=== PATIENT | male | born 1945 | race Caucasian/White ===

== ENCOUNTER → 2025-02-03 | Outpatient (CLI) | payer SELFPAY ==
--- NOTE | 2025-02-03 12:27 | CT_ITS ---
PROCEDURE: EXTREMITY LOWER WITHOUT CONTRA 02/03/2025 REASON FOR EXAM: TEMPLATING FOR LEFT JAMES TECHNIQUE: Axial CT images of the pelvis and knees were obtained without the administration of intravenous contrast. Coronal and Sagittal reconstruction series were provided. One or more dose reduction techniques were used (e.g., Automated exposure control, adjustment of the mA and/or kV according to patient size, use of iterative reconstruction technique). COMPARISON: None FINDINGS: See impression CT/Extremity Lower without Contra IMPRESSION: Severe left hip osteoarthritis including ddac-pe-fror articulation, osseous rem odeling, subchondral sclerosis/cysts and marginal osteophytes. Negative for acute fracture or subluxation. Intact right hip pro sthesis. Degenerative changes of the lower lumbar spine. Mild bilateral knee osteoarthritis. Diffuse vascular calcifications. Mild generalized muscular atrophy. Enlarged prostate gland. Reading Location: [facility]
[2025-02-03 12:47] LABS: Absolute Lymphocyte Count 2.93 X10^3/uL (0.83-4.51); Absolute Neutrophil Count 4.6 X10^3/uL (2.0-7.7); Basophil# 0.06 X10^3/uL; Basophil% 0.7 % (0-1); Eosinophil# 0.19 X10^3/uL; Eosinophils% 2.3 % (0-5); Hematocrit 46.3 % (40-54); Hemoglobin 15.8 g/dL (13.0-16.5); Lymphocyte # 2.93 X10^3/ul (0.83-4.51); Lymphocyte % 34.9 % (19-41); Mean Corp Hgb Conc 34.1 g/dL (32-36); Mean Corpuscular Hgb 31.3 pg (27.0-32.0); Mean Corpuscular Volume 91.9 fL (80-94); Mean Platelet Vol. 9.3 fl (6.2-12.0); Monocyte% 7.2 % (0-10); NRBC Flagged by Analyzer 0 % (0-5); Neutrophil # 4.58 X10^3/uL (2.7-7.7); Neutrophil % 54.5 % (47-70); Platelet Count 224 K/mm3 (150-450); RBC Distribution Width CV 13.3 % (11.6-14.6); RBC Distribution Width SD 45.1 fl (35.1-43.9); Red Blood Count 5.04 M/mm3 (4.6-6.2); White Blood Count 8.4 K/mm3 (4.4-11.0)
[2025-02-03 13:04] LABS: Partial Thromboplast Time 24.6 Seconds (24.1-36.2)
[2025-02-03 13:25] LABS: Anion Gap 12 (5-15); BUN 18 mg/dL (4-19); BUN/Creat Ratio 11.6 RATIO (10-20); Calcium,Total 9.4 mg/dL (7.6-11.0); Carbon Dioxide 23.9 mmol/L (21.0-32.0); Chloride 103 mmol/L (98-108); Creatinine, Serum 1.59 mg/dL (0.70-1.20); EST Glomerular Filtration Rate 44 (>60); Glucose 171 mg/dL (70-99); Potassium 4.6 mmol/L (3.3-5.1); Sodium Level 139 mmol/L (133-145)
[2025-02-03 13:56] LABS: Magnesium 2.2 mg/dL (1.5-2.2)
[2025-02-03 21:31] LABS: Hemoglobin A1c 6.6 % (<=5.6)
[2025-02-05 08:08] LABS: Fructosamine 287 umol/L (0-285)
== END | disposition home or self-care (01) ==
PROVIDERS: Anesthesiology; Referring Provider Orthopaedic Surgery; Visit Provider Orthopaedic Surgery
DX: Z01.818 Encounter for other preprocedural examination (principal); M16.12 Unilateral primary osteoarthritis, left hip
CPT/HCPCS: 36415; 73700; 80048; 82985; 83036; 83735; 85025; 85610; 85730; 86850; 86900; 86901; 87081

== ENCOUNTER 2025-02-14 13:33 | Inpatient (IN) | payer SELFPAY, OTHER ==
[2025-02-14] VITALS (40 sets, daily range): BP systolic 42–162; BP diastolic 30–107; PULSE 74–97; RESP 8–25; TEMP 35.9–36.6; O2SAT 82–100; BMI 36.6; BMI 37.9
[2025-02-14 09:56] LABS: Bedside Glucose 278 mg/dL (74-106)
[2025-02-14] MEDS: LR 1,000 ML - BOLUS PREOP 999 ML IV (10:28)
[2025-02-14] MEDS: Acetaminophen 500 MG Tablet 1000 MG PO ×2 (10:28→18:16)
[2025-02-14] MEDS: Magnesium 1 GM over 15 mins IV (10:28)
[2025-02-14] MEDS: Celecoxib 200 MG Capsule 400 MG PO (10:29)
[2025-02-14] MEDS: Gabapentin 600 MG Tablet PO (10:29)
[2025-02-14] MEDS: Scopolamine 1mg/72hr Patch 1 PATCH TD (10:30)
[2025-02-14] MEDS: LR 1,000 ML - 125 ML/HR POSTOP (NO BOLUS) IV (10:45)
[2025-02-14] MEDS: Insulin Lispro 100 UNIT/ML INSULN.PEN SC (10:53)
[2025-02-14] MEDS: [UNRECOGNIZED DRUG - OTHER] IV (11:15)
[2025-02-14] MEDS: TXA IV (11:15)
[2025-02-14] MEDS: Cefazolin 3 GM in 0.9% Normal Saline (100mL Bag) 100 ML IV (11:20)
[2025-02-14 14:10] LABS: Bedside Glucose 167 mg/dL (74-106)
[2025-02-14 14:34] LABS: Base Excess 0 mmol/L (-2 to +2); Bicarbonate 29.2 mmol/L (22-26); Blood Gas Specimen Type ART; Comment AVAPS; Mode Not entered; O2 Delivery Device BiPAP; PEEP 10; PO2 94 mmHG (75-100); RR 16; SITE R Brach; SO2 94 % (95-99); Total Carbon Dioxide 32 mmol/L; pCO2 84.8 mmHg (35-45); pH 7.15 (7.35-7.45)
[2025-02-14] MEDS: Furosemide 40 MG/4 ML Vial IV (15:47)
[2025-02-14 15:59] LABS: Base Excess 0 mmol/L (-2 to +2); Bicarbonate 27.2 mmol/L (22-26); Blood Gas Specimen Type ART; Mode Not entered; O2 Delivery Device BiPAP; PEEP 6; PO2 83 mmHG (75-100); RR 16; SITE R Brach; SO2 94 % (95-99); Total Carbon Dioxide 29 mmol/L; pH 7.27 (7.35-7.45)
[2025-02-14] MEDS: Cefazolin 2 GM in 0.9% Normal Saline (100mL Bag) 100 ML IV (17:38)
[2025-02-14 18:40] LABS: Bedside Glucose 100 mg/dL (74-106)
[2025-02-14 18:51] LABS: Pro- Brain NATRIURETIC PEPTIDE 325 pg/mL (<=1800)
[2025-02-14] MEDS: 0.9% Saline Lock 10 ML Syringe IV (18:54)
[2025-02-14] MEDS: Senna/Docusate Sodium 1 Tablet 2 TABLET PO (21:28)
[2025-02-14 21:57] LABS: Bedside Glucose 190 mg/dL (74-106)
[2025-02-15] VITALS (30 sets, daily range): BP systolic 90–156; BP diastolic 47–90; PULSE 85–113; RESP 14–26; TEMP 36.6–37; O2SAT 86–100; BMI 37.8
[2025-02-15] MEDS: 0.9% Saline Lock 10 ML Syringe IV ×2 (01:17→08:22)
[2025-02-15] MEDS: Cefazolin 2 GM in 0.9% Normal Saline (100mL Bag) 100 ML IV ×2 (01:17→08:13)
[2025-02-15] MEDS: Acetaminophen 500 MG Tablet 1000 MG PO (02:27)
[2025-02-15] MEDS: Ondansetron 4 MG/2 ML Vial IV (02:39)
[2025-02-15 03:36] LABS: Absolute Lymphocyte Count 1.28 X10^3/uL (0.83-4.51); Absolute Neutrophil Count 8.5 X10^3/uL (2.0-7.7); Basophil# 0.02 X10^3/uL; Basophil% 0.2 % (0-1); Eosinophil# 0.01 X10^3/uL; Eosinophils% 0.1 % (0-5); Hematocrit 40.7 % (40-54); Hemoglobin 13.8 g/dL (13.0-16.5); Lymphocyte # 1.28 X10^3/ul (0.83-4.51); Mean Corp Hgb Conc 33.9 g/dL (32-36); Mean Corpuscular Hgb 31.8 pg (27.0-32.0); Mean Corpuscular Volume 93.8 fL (80-94); Mean Platelet Vol. 9.1 fl (6.2-12.0); Monocyte# 0.84 X10^3/uL; Monocyte% 7.9 % (0-10); NRBC Flagged by Analyzer 0 % (0-5); Neutrophil # 8.53 X10^3/uL (2.7-7.7); Neutrophil % 79.6 % (47-70); Platelet Count 207 K/mm3 (150-450); RBC Distribution Width CV 13.2 % (11.6-14.6); RBC Distribution Width SD 45.3 fl (35.1-43.9); Red Blood Count 4.34 M/mm3 (4.6-6.2); White Blood Count 10.7 K/mm3 (4.4-11.0)
[2025-02-15 03:58] LABS: Anion Gap 12 (5-15); BUN 17 mg/dL (4-19); BUN/Creat Ratio 9.7 RATIO (10-20); Calcium,Total 8.6 mg/dL (7.6-11.0); Carbon Dioxide 22.2 mmol/L (21.0-32.0); Chloride 98 mmol/L (98-108); Creatinine, Serum 1.76 mg/dL (0.70-1.20); EST Glomerular Filtration Rate 39 (>60); Estimated Creatinine Clearance 46.24 ml/min (50-250); Glucose 183 mg/dL (70-99); Potassium 4.4 mmol/L (3.3-5.1); Sodium Level 133 mmol/L (133-145)
[2025-02-15] MEDS: Pantoprazole Sodium 80 MG in 0.9% Normal Saline (100mL Bag) 80 ML 10 MG CONT INF (04:34)
[2025-02-15 08:36] LABS: Hematocrit 36.9 % (40-54); Hemoglobin 12.4 g/dL (13.0-16.5); Mean Corp Hgb Conc 33.6 g/dL (32-36); Mean Corpuscular Hgb 31.1 pg (27.0-32.0); Mean Corpuscular Volume 92.5 fL (80-94); Mean Platelet Vol. 9.2 fl (6.2-12.0); Platelet Count 199 K/mm3 (150-450); RBC Distribution Width CV 13.2 % (11.6-14.6); RBC Distribution Width SD 44.8 fl (35.1-43.9); Red Blood Count 3.99 M/mm3 (4.6-6.2); White Blood Count 12.2 K/mm3 (4.4-11.0)
[2025-02-15] MEDS: oxyCODONE 5 MG Tablet PO (13:38)
[2025-02-15] MEDS: Insulin Lispro 100 UNIT/ML INSULN.PEN SC ×2 (16:26→23:09)
[2025-02-15] MEDS: Ensure Surgery 237 ML LIQUID PO (16:28)
[2025-02-15 16:46] LABS: Bedside Glucose 185 mg/dL (74-106)
[2025-02-15 21:51] LABS: Hematocrit 36.4 % (40-54); Hemoglobin 12.6 g/dL (13.0-16.5); Mean Corp Hgb Conc 34.6 g/dL (32-36); Mean Corpuscular Hgb 31.7 pg (27.0-32.0); Mean Corpuscular Volume 91.7 fL (80-94); Mean Platelet Vol. 9.5 fl (6.2-12.0); Platelet Count 209 K/mm3 (150-450); RBC Distribution Width CV 13.2 % (11.6-14.6); RBC Distribution Width SD 44.6 fl (35.1-43.9); Red Blood Count 3.97 M/mm3 (4.6-6.2); White Blood Count 13.7 K/mm3 (4.4-11.0)
[2025-02-15] MEDS: Senna/Docusate Sodium 1 Tablet 2 TABLET PO (23:10)
[2025-02-15] MEDS: APIXABAN 2.5 MG TABLET (WCH) PO (23:10)
[2025-02-15 23:38] LABS: Bedside Glucose 264 mg/dL (74-106)
[2025-02-16 02:29] VITALS: BP 140/57; PULSE 93; RESP 16; TEMP 37.1; O2SAT 94
[2025-02-16 06:00] VITALS: BMI 37.9
[2025-02-16 07:37] VITALS: BP 127/48; PULSE 98; RESP 18; TEMP 36.8; O2SAT 98
[2025-02-16 07:39] LABS: Absolute Lymphocyte Count 1.63 X10^3/uL (0.83-4.51); Absolute Neutrophil Count 10.4 X10^3/uL (2.0-7.7); Basophil# 0.06 X10^3/uL; Basophil% 0.4 % (0-1); Eosinophil# 0.14 X10^3/uL; Hematocrit 36.6 % (40-54); Hemoglobin 12.6 g/dL (13.0-16.5); Lymphocyte # 1.63 X10^3/ul (0.83-4.51); Lymphocyte % 12.1 % (19-41); Mean Corp Hgb Conc 34.4 g/dL (32-36); Mean Corpuscular Hgb 31.2 pg (27.0-32.0); Mean Corpuscular Volume 90.6 fL (80-94); Mean Platelet Vol. 9.3 fl (6.2-12.0); Monocyte# 1.17 X10^3/uL; Monocyte% 8.7 % (0-10); NRBC Flagged by Analyzer 0 % (0-5); Neutrophil % 76.9 % (47-70); Platelet Count 192 K/mm3 (150-450); RBC Distribution Width CV 13.3 % (11.6-14.6); RBC Distribution Width SD 44.1 fl (35.1-43.9); Red Blood Count 4.04 M/mm3 (4.6-6.2); White Blood Count 13.5 K/mm3 (4.4-11.0)
[2025-02-16 07:45] LABS: Bedside Glucose 180 mg/dL (74-106)
[2025-02-16 08:05] LABS: Anion Gap 11 (5-15); BUN 30 mg/dL (4-19); BUN/Creat Ratio 13.6 RATIO (10-20); Calcium,Total 8.4 mg/dL (7.6-11.0); Carbon Dioxide 25.1 mmol/L (21.0-32.0); Chloride 98 mmol/L (98-108); EST Glomerular Filtration Rate 30 (>60); Estimated Creatinine Clearance 36.91 ml/min (50-250); Glucose 197 mg/dL (70-99); Potassium 4.2 mmol/L (3.3-5.1); Sodium Level 134 mmol/L (133-145)
[2025-02-16] MEDS: Senna/Docusate Sodium 1 Tablet 2 TABLET PO ×2 (08:14→21:37)
[2025-02-16] MEDS: Gabapentin 100 MG Capsule PO (08:14)
[2025-02-16] MEDS: Cholecalciferol (VIT D3) 25 MCG TABLET (1,000 UNITS) PO (08:15)
[2025-02-16] MEDS: APIXABAN 2.5 MG TABLET (WCH) PO ×2 (08:15→21:37)
[2025-02-16] MEDS: 0.9% Saline Lock 10 ML Syringe IV (08:21)
[2025-02-16] MEDS: 0.9% Normal Saline (1000mL) 1,000 ML 50 ML IV (08:21)
[2025-02-16] MEDS: Pantoprazole Sodium 40 MG Tablet PO ×2 (08:21→21:37)
[2025-02-16 11:24] LABS: Bedside Glucose 153 mg/dL (74-106)
[2025-02-16 14:23] VITALS: BP 139/64; PULSE 104; RESP 18; TEMP 36.6; O2SAT 98
[2025-02-16 15:23] VITALS: O2SAT 97
[2025-02-16] MEDS: Insulin Lispro 100 UNIT/ML INSULN.PEN SC ×2 (16:31→21:37)
[2025-02-16 16:59] LABS: Bedside Glucose 258 mg/dL (74-106)
[2025-02-16] MEDS: oxyCODONE 5 MG Tablet PO (19:55)
[2025-02-16] MEDS: Menthol/Lanolin/Calamine/Znox 113 GM Tube 1 APPLIC TOPICAL (21:38)
[2025-02-16] MEDS: Nystatin Powder 15gm Bottle 1 APPLIC TOPICAL (21:38)
[2025-02-16 22:02] LABS: Bedside Glucose 179 mg/dL (74-106)
[2025-02-17 02:00] VITALS: BP 151/68; PULSE 100; RESP 16; TEMP 37.1; O2SAT 97
[2025-02-17] MEDS: Acetaminophen 500 MG Tablet 1000 MG PO ×2 (02:01→09:50)
[2025-02-17] MEDS: oxyCODONE 5 MG Tablet PO ×3 (04:31→14:08)
[2025-02-17 04:46] VITALS: BMI 38.2
[2025-02-17 06:32] VITALS: BP 142/70; PULSE 89; RESP 16; TEMP 36.8; O2SAT 96
[2025-02-17 06:58] LABS: Bedside Glucose 79 mg/dL (74-106)
[2025-02-17 07:26] VITALS: BP 142/56; PULSE 96; RESP 18; TEMP 36.6; O2SAT 95
[2025-02-17] MEDS: Gabapentin 100 MG Capsule PO (08:39)
[2025-02-17] MEDS: Ensure Surgery 237 ML LIQUID PO ×2 (08:41→11:39)
[2025-02-17 08:46] LABS: Absolute Lymphocyte Count 2.49 X10^3/uL (0.83-4.51); Absolute Neutrophil Count 9.1 X10^3/uL (2.0-7.7); Basophil# 0.05 X10^3/uL; Basophil% 0.4 % (0-1); Eosinophil# 0.29 X10^3/uL; Eosinophils% 2.2 % (0-5); Hematocrit 35.8 % (40-54); Hemoglobin 12.1 g/dL (13.0-16.5); Lymphocyte # 2.49 X10^3/ul (0.83-4.51); Lymphocyte % 18.9 % (19-41); Mean Corp Hgb Conc 33.8 g/dL (32-36); Mean Corpuscular Hgb 31.4 pg (27.0-32.0); Mean Platelet Vol. 9.4 fl (6.2-12.0); Monocyte# 1.11 X10^3/uL; Monocyte% 8.4 % (0-10); NRBC Flagged by Analyzer 0 % (0-5); Neutrophil # 9.09 X10^3/uL (2.7-7.7); Platelet Count 227 K/mm3 (150-450); RBC Distribution Width CV 13.6 % (11.6-14.6); RBC Distribution Width SD 46.6 fl (35.1-43.9); Red Blood Count 3.85 M/mm3 (4.6-6.2); White Blood Count 13.2 K/mm3 (4.4-11.0)
[2025-02-17 09:16] LABS: Anion Gap 9 (5-15); BUN 29 mg/dL (4-19); BUN/Creat Ratio 15.3 RATIO (10-20); Calcium,Total 8.7 mg/dL (7.6-11.0); Carbon Dioxide 26.1 mmol/L (21.0-32.0); Chloride 102 mmol/L (98-108); Creatinine, Serum 1.92 mg/dL (0.70-1.20); EST Glomerular Filtration Rate 35 (>60); Estimated Creatinine Clearance 42.47 ml/min (50-250); Glucose 72 mg/dL (70-99); Sodium Level 137 mmol/L (133-145)
[2025-02-17] MEDS: Menthol/Lanolin/Calamine/Znox 113 GM Tube 1 APPLIC TOPICAL (09:48)
[2025-02-17] MEDS: Cholecalciferol (VIT D3) 25 MCG TABLET (1,000 UNITS) PO (09:50)
[2025-02-17] MEDS: Senna/Docusate Sodium 1 Tablet 2 TABLET PO (09:50)
[2025-02-17] MEDS: Nystatin Powder 15gm Bottle 1 APPLIC TOPICAL (09:50)
[2025-02-17] MEDS: Pantoprazole Sodium 40 MG Tablet PO (09:50)
[2025-02-17] MEDS: APIXABAN 2.5 MG TABLET (WCH) PO (09:51)
[2025-02-17 10:15] VITALS: BP 132/57; PULSE 92; RESP 16; TEMP 36.8; O2SAT 95
[2025-02-17 11:19] LABS: Bedside Glucose 209 mg/dL (74-106)
[2025-02-17] MEDS: Tamsulosin HCl 0.4 MG Capsule PO (11:31)
[2025-02-17] MEDS: Polyethylene Glycol 3350 17 GM PACKET PO (11:34)
[2025-02-17] MEDS: Insulin Lispro 100 UNIT/ML INSULN.PEN SC (11:37)
[2025-02-17 12:29] LABS: Color, Urine Yellow (Yellow); Glucose, Dipstick Normal (Normal); Ketone-Dipstick Negative (Negative); Leukocyte Esterase-Dipstick 100 /ul (Negative); Nitrite-Dipstick Negative (Negative); Occult Blood-Urine 250 /ul (Negative); Protein-Dipstick 30 mg/dl (Negative); Specific Gravity, Urine 1.015 (1.002-1.030); Urine Bilirubin Dipstick Negative (Negative); Urine Clarity Sl. Cloudy (Clear); Urine Urobilinogen Normal (Normal)
[2025-02-17 12:37] LABS: Bacteria RARE /hpf (None Seen); Mucous, Urine RARE /hpf (<or=2+); Red Blood Cells-Urine 5-10 SEEN /hpf (0-5); Squamous Epithelial Cells - UA 0-5 SEEN /hpf (0-5); White Blood Cells 5-10 SEEN /hpf (0-5)
[2025-02-18 06:46] LABS: Hemoglobin A1c 6.2 % (<=5.6)
[2025-02-18 08:44] LABS: Cholesterol 154 mg/dL (<=200); High Density Lipoprotein 27 mg/dL; Low Density Lipoprotein Calc. 100 mg/dL; Triglycerides 137 mg/dL; Very Low Density Lipoprotein 27 mg/dL (5-40); cholesterol:hdl ratio screen 5.72
== END 2025-02-17 14:22 | DRG 469 ==
LOC: ICU 02-15 07:08 → MS3 02-15 20:36
PROVIDERS: Hospitalist; Internal Medicine; Internal Medicine Gastroenterology; Admitting Provider Orthopaedic Surgery; PCP Physician Assistant; Referring Provider Orthopaedic Surgery; Visit Provider Orthopaedic Surgery
PROC: 8E0Y0CZ Robotic Assisted Procedure of Lower Extremity, Open Approach (ICD-10-PCS; CPT 27130; principal; 2025-02-14 10:15)
PROC: 0DJ08ZZ Inspection of Upper Intestinal Tract, Via Natural or Artificial Opening Endoscopic (ICD-10-PCS; CPT 43235; principal; 2025-02-15 12:40)
DX: M16.12 Unilateral primary osteoarthritis, left hip (principal); G93.41 Metabolic encephalopathy; J96.02 Acute respiratory failure with hypercapnia; N17.9 Acute kidney failure, unspecified; K92.0 Hematemesis; K22.10 Ulcer of esophagus without bleeding; E11.22 Type 2 diabetes mellitus with diabetic chronic kidney disease; N18.32 Chronic kidney disease, stage 3b; I12.9 Hypertensive chronic kidney disease with stage 1 through stage 4 chronic kidney disease, or unspecified chronic kidney disease; Z68.36 Body mass index [BMI] 36.0-36.9, adult; E78.00 Pure hypercholesterolemia, unspecified; M70.62 Trochanteric bursitis, left hip; K29.70 Gastritis, unspecified, without bleeding; M47.26 Other spondylosis with radiculopathy, lumbar region; G47.33 Obstructive sleep apnea (adult) (pediatric); I95.81 Postprocedural hypotension; Y92.239 Unspecified place in hospital as the place of occurrence of the external cause; T50.8X5A Adverse effect of diagnostic agents, initial encounter; R33.9 Retention of urine, unspecified; R04.0 Epistaxis; T88.59XA Other complications of anesthesia, initial encounter; T41.45XA Adverse effect of unspecified anesthetic, initial encounter; E66.812 Obesity, class 2; Z79.01 Long term (current) use of anticoagulants; Z79.84 Long term (current) use of oral hypoglycemic drugs; Z79.899 Other long term (current) drug therapy; Z86.711 Personal history of pulmonary embolism; Z87.891 Personal history of nicotine dependence; Z96.641 Presence of right artificial hip joint
CPT/HCPCS: 36415; 36600; 71045; 73502; 74170; 80048; 80061; 81001; 82271; 82803; 82962; 83036; 83880; 85025; 85027; 87086; 88304; 88311; 92526; 92610; 94002; 94668; 94762; 97163; 97166; 97530; 97535; C1713; C1776; Q9967; A4216; J1938; J2405; J3475

== ENCOUNTER 2025-02-17 15:15 | Inpatient (IN) | payer SELFPAY ==
[2025-02-17 15:31] VITALS: BP 140/73; PULSE 97; RESP 16; TEMP 36.8; O2SAT 98; BMI 37.7
--- NOTE | 2025-02-17 16:00 | RAD_ITS ---
EXAM: XR Abdomen, 1 View CLINICAL INDICATION: CONSTIPATION TECHNIQUE: Frontal supine view of the abdomen/pelvis. COMPARISON: No relevant prior studies available. FINDINGS: GASTROINTESTINAL TRACT: Fecal retention in the colon consistent with constipation. No dilation. BONES/JOINTS: Unremarkable. No acute fracture. RAD/Abdomen Single View IMPRESSION: Fecal retention in the colon consistent with constipation. Reading Location: [id number]
--- NOTE | 2025-02-17 16:10 | RAD_ITS ---
EXAM: XR Chest, 2 Views CLINICAL INDICATION: ASPIRATION PNA TECHNIQUE: Frontal and lateral views of the chest. COMPARISON: No relevant prior studies available. FINDINGS: LUNGS AND PLEURAL SPACES: Patchy airspace disease of the right upper lobe, likely pneumonia. No pneumothorax. HEART: Unremarkable. No cardiomegaly. MEDIASTINUM: Unremarkable. Normal mediastinal contour. BONES/JOINTS: Unremarkable. No acute fracture. RAD/Chest PA and Lateral IMPRESSION: Patchy airspace disease of the right upper lobe, likely pneumonia. Reading Location: [id number]
--- NOTE | 2025-02-17 16:12 | PCM.HP.STD ---
HPI - General General Date of Admission: 02/17/25 Date of Service: 02/17/25 Chief Complaint: DEBILITY DUE TO R THR HPI Narrative OCTAVIO VILLA, is a 79 M with a PMH of DM II, morbid obesity, suspected BPH, osteoarthritis, chronic renal failure (creat on preop labs was 1.59 with a GFR of 44 which is consistent with stage III 3B chronic renal failure), tobacco dependence in remission and a PE after L hip replacement in the past who underwent a right total hip replacement by Dr. Galindo on 02/14/2025. Post operatively he was somnolent and unarousable. ABG showed a pH of 7.15 with a PCO2 of 84 and a PO2 of 94 on BiPAP (later transitioned to AVAPS). Chest x-ray showed a right upper lobe infiltrate. He was given Lasix in PACU. After about an hour on AVAPS he became arousable and the ABG showed pH of 7.27 with a PCO2 of 60 and a pO2 of 83. He was transferred to the intensive care unit. He was started on Unasyn for suspected aspiration PNA. At some point he was reported to have had a coffee ground emesis. A CT scan of the abdomen with contrast was done and showed a right perihilar/right lower lobe multifocal pulmonary airspace disease/consolidation likely representing pneumonia, chronic right renal atrophy, cholelithiasis without evidence of acute cholecystitis, small sliding hiatal hernia, colonic diverticulosis with no evidence of diverticulitis, mild prostatomegaly and moderate diffuse spondylosis. There was no evidence of active bleeding. Consult was ordered with GI. An EGD was done on 02/15/2025 and showed grade C erosive esophagitis with no bleeding. There were no gross lesions in the entire stomach and no gross lesions in the entire examined duodenum. CT scan of the abdomen showed There was evidence of old blood in the nasopharynx and oropharynx. Creatinine on 02/16/2025 had risen to 2.2 and this was thought to be secondary to intravascular volume depletion and IV contrast. He was hydrated and the creatinine came down to 1.92 on 02/17/2025. He has been retaining urine in the hospital. Gould catheter was removed but, PVR on 02/17/25 was 523 and the Gould was re-inserted. He was started on Flomax. He takes an herbal prostate supplement at home and denies slow stream and dribbling. He was transferred to the acute inpatient rehab unit at [facility] on 02/17/2025 for 3 hours of therapy daily to restore function/independence at or near his level prior to the recent hip replacement. He lives alone in a one-story house with a basement. He normally ambulates with a rollator walker. He is independent with his activities of daily living. He is c/o constipation and tells us that he has not had a BM in 1 week. He denies feeling nauseated. He refused breakfast and lunch on 02/17/25. He denies abd pain. He has an occasional cough and denies SOB at rest. He has SIMON. He has not had a fever but, he has been getting Tylenol 1 GM every 6 Hours. White blood cell count has been elevated since 820 on 02/15/2025. Today it is 13.2. Hemoglobin is 12.1, down from 15.8 on 02/03/2025. Platelets are normal. [facility] Medical History (Updated 02/17/25 @ 17:[address] Asia Dodd, ) Degenerative joint disease of left hip Trochanteric bursitis, left hip Tobacco dependence in remission Hiatal hernia with GERD Left lumbar radiculitis Chronic renal failure (CRF), stage 3b Lumbar spondylosis Wears glasses Wears partial dentures Alcohol use Rash Walker as ambulation aid Arthritis High cholesterol Back pain Syncope Dietary restriction Constipation Chewing tobacco use History of pain when walking Hypertension Pulmonary embolism Home Medications ?Medication ?Instructions ?Recorded ?Last Taken ?Type cholecalciferol (vitamin D3) 25 25 mcg PO DAILY SUPPLEMENT 02/07/25 02/17/25 History mcg (1,000 unit) tablet (Vitamin D3) magnesium 250 mg tablet 750 mg PO DAILY SUPPLEMENT 02/07/25 02/13/25 History vitamin K2 100 mcg capsule 100 mcg PO DAILY SUPPLEMENT 02/07/25 02/13/25 History Held on 02/17/25. Instructions: Ordered acetaminophen 500 mg tablet 1,000 mg (2 x 500 mg) PO Q6H pain 02/16/25 Unknown Rx Held on 02/17/25. #100 tabs Instructions: MD Ordered apixaban 2.5 mg tablet (Eliquis) 2.5 mg PO BID Blood thinner #66 02/16/25 Unknown Rx tabs gabapentin 300 mg capsule 300 mg PO TID Nerve pain #90 caps 02/16/25 Unknown Rx oxycodone 5 mg tablet 5 - 10 mg PO Q4H PRN pain 02/17/25 Unknown History pantoprazole 40 mg tablet,delayed 40 mg PO BID GERD #0 tabs 02/17/25 02/17/25 Rx release sennosides 8.6 mg-docusate sodium 2 tab PO BID Constipation #0 tabs 02/17/25 02/17/25 Rx 50 mg tablet (Stimulant Laxative Plus) tamsulosin 0.4 mg capsule 0.4 mg PO DAILY@0830 Urine 02/17/25 02/17/25 Rx retention #0 caps Allergy/AdvReac Type Severity Reaction Status Date / Time No Known Allergies Allergy Verified 02/14/25 10:16 Family History (Updated 02/17/25 @ 17:[address] Asia Dodd DO) Son VTE (venous thromboembolism) many family members have had blood clots......possible inherited hypercoagulable disorder. Surgical History (Updated 02/17/25 @ 17:[address] Asia Dodd DO) Status post left hip replacement Hx of right cataract extraction Hx of left cataract extraction Hx of appendectomy History of right hip replacement Social History (Updated 02/17/25 @ 17:[address] Asia Dodd DO) household members: none housing: house number of children: 7 current occupational status: retired Smoking Status: Former smoker Tobacco: How many years used: 35 Smokeless tobacco user: snuff how long ago did patient quit smokin years ago alcohol intake: current alcohol intake frequency: holidays/special occasions only details: has an occasional beer in the summer and a shot of whiskey in the winter. substance use type: does not use Homelessness:: Sheltered ROS Review of Systems ROS Unobtainable: Denies due to encephalopathy, due to endotracheal tube, due to mental condition or due to mental status Constitutional Constitutional: Reports fatigue and weakness; Denies anorexia, change in weight, chills, fever(s), frequent falls, headache(s) or night sweats Eyes Eyes: Denies blurry vision, change in vision, eye pain or loss of vision ENT HEENT: Denies abnormal hearing, dysphagia, headache(s), hearing loss, nasal congestion or sore throat Cardiovascular Cardiovascular: Reports dyspnea on exertion; Denies chest pain, edema, lightheadedness, orthopnea, palpitations, paroxysmal nocturnal dyspnea or syncope Respiratory/Chest Respiratory/Chest: Reports cough and shortness of breath with exertion; Denies dyspnea, pain on inspiration, portable oxygen @ home, shortness of breath at rest or wheezing Gastrointestinal Gastrointestinal: Reports constipation and other Details: had emesis while in the ICU following surgery ; Denies abdominal pain, diarrhea, dyspepsia, dysphagia, early satiety, fecal incontinence, hematemesis, hematochezia, nausea or vomiting Genitourinary Genitourinary: Reports other Details: urine retention in the hospital requiring insertion of a gould catheter. ; Denies dysuria, hematuria, nocturia, urinary frequency, urinary hesitancy, urinary incontinence or urinary urgency Musculoskeletal Musculoskeletal: Reports back pain, difficulty walking and joint pain; Denies joint swelling, neck pain or radiating pain into limb Neurologic Neurologic: Denies confusion, disequilibrium, dizziness, focal weakness, headache(s), paresthesias, seizures or tremor(s) Psychiatric Psychiatric: Denies anxiety, depression, homicidal ideation or suicidal ideation Endocrine Endocrinology: Reports other Details: he has lost his sense of thirst and knows that he does not drink enough fluids. ; Denies change in body appearance, polydipsia or polyuria Hematologic/Lymphatic Hematologic/Lymphatic: Denies easy bleeding, easy bruising or lymphadenopathy Allergic/Immunologic Allergic/Immunologic: Reports other Details: he has a chronic rash on the RLE over the mid anterior tibia ; Denies rhinitis, eczemia or asthma Vital Signs Vital Signs Vital Signs: 02/17/25 15:31 Temperature 98.2 F Temperature Source Oral Pulse Rate 97 Respiratory Rate 16 Blood Pressure 140/73 H Blood Pressure Mean 95 Blood Pressure Source Monitor Blood Pressure Position Semi-Fowlers Blood Pressure Location Right Arm Pulse Ox 98 Oxygen Delivery Method Room Air Weight Weight: 270 lb 9 oz Body Mass Index (BMI) 37.7 Physical Exam Const alert, oriented x3 and no apparent distress General Appearance: cooperative and well kempt HEENT HEENT Narrative: VERY dry MM. No evidence of thrush Eyes PERRL, EOMs intact bilaterally, conjunctivae normal and no scleral icterus Eyes Narrative: No discharge from the eyes and no mattering of the eyelashes. No visual field cuts. No nystagmus. Smooth pursuit. Neck supple, No nodes and no carotid bruits General: trachea midline Chest Chest: symmetrical chest wall rise Resp Resp Narrative: Some coarse crackles in the mid upper right lung posteriorly. No wheezing. Not tachypneic. No conversational dyspnea. Effort and Inspection: able to speak in complete sentences Cardio regular rhythm, no murmurs, no rub and no gallops Cardio Narrative: Increased resting heart rate. No ectopy. GI GI Narrative: Obese, soft, ND, normal BS's, no guarding with palpation. no CVA tenderness Bladder / Kidney Exam: catheter in place urethral (urine in the Gould bag is dark alber. ) Extremity no calf tenderness Extremity Narrative: he has pitting edema of the feet and ankles.......no TEDS in place. Skin Skin Narrative: He has a area of dry, scaley, hyperpigmented skin on the distal anterior R leg at about mid tibia. Neuro oriented x3, CN's II-XII intact bilaterally, moves all extremities and no focal motor deficits Psych mental status grossly normal, thought process normal, cooperative, affect normal and speech normal; Negative for denies hallucinations, denies homicidal ideation or denies suicidal ideation Appearance: grossly normal, appropriate and well kempt Attitude: calm and engaged Activity / Motor Behavior: appropriate eye contact Assessment & Plan Assessment/Plan (1) Physical debility: (2) Status post left hip replacement: (3) Other acute postprocedural pain: (4) Acute blood loss as cause of postoperative anemia: (5) Acute hypercapnic respiratory failure: (6) Coffee ground emesis: (7) Erosive esophagitis: (8) Aspiration pneumonia: QUALIFIERS: Aspiration pneumonia type: due to gastric secretions Laterality: right Lung location: unspecified part of lung Qualified Code(s): J69.0 - Pneumonitis due to inhalation of food and vomit (9) Acute renal failure superimposed on stage 3 chronic kidney disease: QUALIFIERS: Acute renal failure type: unspecified Chronic kidney disease stage 3 subtype: stage 3b (GFR 30-44) Qualified Code(s): N17.9 - Acute kidney failure, unspecified; N18.32 - Chronic kidney disease, stage 3b (10) Dehydration: (11) Urine retention: (12) BPH (benign prostatic hyperplasia): QUALIFIERS: Lower urinary tract symptom presence: symptoms present Lower urinary tract symptom detail: urinary retention Qualified Code(s): N40.1 - Benign prostatic hyperplasia with lower urinary tract symptoms; R33.8 - Other retention of urine (13) Enlarged prostate: (14) Diabetes mellitus, type 2: QUALIFIERS: Diabetes mellitus vermin exterminator insulin use: without mcc use Diabetes mellitus complication status: with kidney complications (15) Chronic renal failure (CRF), stage 3b: (16) Hiatal hernia with GERD: (17) Morbid obesity: (18) KATHERINE (obstructive sleep apnea): (19) Pulmonary embolism: QUALIFIERS: Pulmonary embolism type: unspecified Chronicity: unspecified Acute cor pulmonale presence: unspecified Qualified Code(s): I26.99 - Other pulmonary embolism without acute cor pulmonale PLAN: 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 Galindo following DC from IP Rehab AM lab including CMP, CBC, Mag, lipid panel and Phos KUB PA and lateral chest x-ray Decrease gabapentin to 100 mg 3 times daily due to age and chronic kidney disease with acute exacerbation. Flomax has been started-voiding trial after 5 doses Orthostatic vital signs Normal saline at 125 cc/h x 2 L then discontinue Start Unasyn 1.5 g IV every 6 hours for aspiration pneumonia Urine culture Overnight trending pulse ox 70 minutes spent reviewing past diagnostic tests, lab results, vital sign trends, medical history, medications, all additional paperwork sent by the previous hospital, and ordering medications, examining the the patient and completing documentation. Charges/Coding Visit Charges Inpatient E&M: 79924 Init Hosp L3
[2025-02-17] MEDS: 0.9% Normal Saline (1000mL) 1,000 ML 125 ML IV (16:59)
[2025-02-17] MEDS: 0.9% Saline Lock 10 ML Syringe IV (17:13)
[2025-02-17 17:44] VITALS: BP 140/73; PULSE 97; RESP 16; TEMP 36.8; O2SAT 98
--- NOTE | 2025-02-17 17:54 | REHABEVAL_ITS ---
Admission Information Primary Diagnosis:: Debility secondary to left total hip replacement Status Changes from Prescreening?: No changes Identified Actual Problem List:: Infection, Aspiration, Pain, ALteration in Cmfrt, Bowel, Constipation, Alteration in Sleep, Mobility Impaired, Self Care Deficit, Lyudmila betes, Hyperglycemia, Alteration/ Air Exchange, Fluid Change-Dehydration and
--- NOTE | 2025-02-17 17:54 | PCM.RU.PYE ---
Admission Information Primary Diagnosis:: Debility secondary to left total hip replacement Status Changes from Prescreening?: No changes Identified Actual Problem List:: Infection, Aspiration, Pain, ALteration in Cmfrt, Bowel, Constipation, Alteration in Sleep, Mobility Impaired, Self Care Deficit, Diabetes, Hyperglycemia, Alteration/ Air Exchange, Fluid Change-Dehydration and Alteration-Leisure Activ. Potential Problem List:: DVT, Bleeding, Infection, UTI, Aspiration, Falls, Skin Integrity and Depression Risk of Complications DVT: ELLY Hose and - (Apixaban 2.5 mg twice daily) Bleeding: Monitor Lab Values, Nursing to Teach Precautions for anti-coagulation therapy., Wound, if applicable, to be assessed every shift. and Stroke patients assessed for lethargy or change in status. Infection: Clinical Staff to Monitor for S/S of infection: and S/S of infection include fever, redness, warmth, etc. Urinary Tract Infection: Monitor for frequency, burning, discomfort, or incontinence. and Nursing will obtain urine sample for urinalysis and C&S when ordered. Aspiration: Clinical staff will monitor for coughing, drooling, congestion., Speech will evaluate swallowing and dsyphasia. and Nursing will monitor patient swallowing during meals. Falls: Patient will be evaluated for Fall Precautions and Patient will be placed on Fall Precautions as indicated per protocol. Skin Breakdown: Nursing will assess skin daily using assessment tool. and Nursing will place on Skin Breakdown Precautions as indicated. Pain: Clinical staff will assess patient's pain level per protocol., Medications will be given, if needed, and the pain level reassessed. and Other methods: Massage, distraction, decrease stimulus, etc. used PRN. Plan of Care Patient requires physician specializing in physical medicine and rehab oversight to provide close medical supervision of rehab issues including: Pain Management, Sleep Problems, Bowel and Bladder, Medical and co-morbidity Management, DVT prophylaxis, Rehabilitation Leadership and Coordination of treatment team Patient needs Physical Therapy: For a minimum of 1 hour and At least 5 out of 7 days Patient needs Physical Therapy to improve:: Mobility, Strengthening, Transfers, Stretching, ROM, Endurance, Stairs, Gait and Balance Patient needs Occupational Therapy: For a minimum of 1 hour and At least 5 out of 7 days Patient needs Occupational Therapy to improve ADL's incl.: Eating, Grooming, Bathing, Dressing, Toileting, Toilet transfers, Community Reintegration, Higher functioning activities, Household tasks, Adaptive Equipment, Splinting and Other activities as determined Patient requires 24/7 Rehabilitation Nursing for: Pain Issues, Identifying and preventing risk factors, Monitoring and reporting current medical conditions, Assisting with ambulation, transfer, and all ADL's, Teaching patients about disease process and medications, Family teaching, Providing safe environment, Bowel and Bladder Issues, Skin integrity and Medication Management Patient needs Middleware Solutions Architect/ Case Management for: Discharge Planning, Arranging Home Equipment or Services and Family Interventions Patient needs Dietary and Nutrition Services for: Adequate Nutrition, Nutritional Supplements and Nutritional Education Goals Goals Patient will remain: free from falls Patient will perform eating at: MOD I level of assist. Patient will perform bed mobility at: MOD I level of assist. Patient will complete transfers from bed to chair at: MOD I level of assist. Patient will propel wheelchair: - (150 feet at mod I with a rollator walker) Patient will complete upper body dressing at: MOD I level of assist. Patient will complete lower body dressing at: MOD I level of assist. (With adaptive equipment as needed) Patient will complete toilet transfer at: MOD I level of assist. Patient will complete toileting at: MOD I level of assist. Patient will perform bathing at: MOD I level of assist. Patient will perform Tub/Shower transfer at: - (Supervision) Patient will complete grooming at: MOD I level of assist. (While standing at the sink) Patient will achieve: - (2 steps at modified with 2 handrails) Patient will have pain level of: of 3 or less Patient's skin will: remain intact Patient will receive: adequate nutrition. Discharge Planning Estimated Length of stay (days): 28 Anticipated D/C Destination: Home with Outpt Therapy Was Preadmission Assessment Accurate?: Yes
[2025-02-17] MEDS: Ampicillin/Sulbactam 1,500 MG in 0.9% Normal Saline (50mL MB+) 50 ML 100 MG IV (18:02)
[2025-02-17] MEDS: Senna/Docusate Sodium 1 Tablet 2 TABLET PO (21:45)
[2025-02-17] MEDS: APIXABAN 2.5 MG TABLET (WCH) PO (21:46)
[2025-02-17] MEDS: Mineral Oil/Petrolatum Cr 1.75oz Bottle 1 APPLIC TOPICAL (21:46)
[2025-02-17 22:00] VITALS: RESP 18; O2SAT 96
[2025-02-17 22:01] VITALS: PULSE 98; O2SAT 96
[2025-02-18] MEDS: Ampicillin/Sulbactam 1,500 MG in 0.9% Normal Saline (50mL MB+) 50 ML 100 MG IV ×4 (00:10→18:00)
[2025-02-18] MEDS: 0.9% Normal Saline (1000mL) 1,000 ML 125 ML IV ×2 (01:11→09:58)
[2025-02-18 05:03] LABS: Hematocrit 32.6 % (40-54); Hemoglobin 11.1 g/dL (13.0-16.5); Immature Granulocytes Count 0.110 X10^3/uL (0.0-0.0); Mean Corp Hgb Conc 34.0 g/dL (32-36); Mean Corpuscular Volume 93.4 fL (80-94); Mean Platelet Vol. 9.3 fl (6.2-12.0); NRBC Flagged by Analyzer 0 % (0-5); Platelet Count 227 K/mm3 (150-450); RBC Distribution Width CV 13.5 % (11.6-14.6); RBC Distribution Width SD 46.4 fl (35.1-43.9); Red Blood Count 3.49 M/mm3 (4.6-6.2); White Blood Count 9.8 K/mm3 (4.4-11.0)
[2025-02-18 05:27] LABS: Anion Gap 9 (5-15); BUN 29 mg/dL (4-19); BUN/Creat Ratio 17.7 RATIO (10-20); Calcium,Total 8.6 mg/dL (7.6-11.0); Carbon Dioxide 25.6 mmol/L (21.0-32.0); Chloride 105 mmol/L (98-108); Estimated Creatinine Clearance 49.50 ml/min (50-250); Glucose 149 mg/dL (70-99); Potassium 4.2 mmol/L (3.3-5.1)
[2025-02-18 05:50] VITALS: BP 159/66; BP 167/70; BP 81/43; PULSE 105; PULSE 115
[2025-02-18 05:53] VITALS: BP 163/79; PULSE 107; RESP 17; TEMP 37.3; O2SAT 97
[2025-02-18 07:30] VITALS: O2SAT 95
[2025-02-18] MEDS: Mineral Oil/Petrolatum Cr 1.75oz Bottle 1 APPLIC TOPICAL ×2 (08:15→21:53)
[2025-02-18] MEDS: Magnesium Chloride 64 MG Delay Rel.Tablet 128 MG PO (08:16)
[2025-02-18] MEDS: Senna/Docusate Sodium 1 Tablet 2 TABLET PO ×2 (08:16→21:52)
[2025-02-18] MEDS: Cholecalciferol (VIT D3) 25 MCG TABLET (1,000 UNITS) PO (08:17)
[2025-02-18] MEDS: APIXABAN 2.5 MG TABLET (WCH) PO ×2 (08:17→21:52)
[2025-02-18 17:40] VITALS: BP 143/77; PULSE 93; RESP 18; TEMP 37.3; O2SAT 97
[2025-02-18] MEDS: 0.9% Saline Lock 10 ML Syringe IV ×2 (19:44→20:22)
[2025-02-18 22:00] VITALS: O2SAT 95
[2025-02-19] MEDS: Ampicillin/Sulbactam 1,500 MG in 0.9% Normal Saline (50mL MB+) 50 ML 100 MG IV ×4 (00:34→17:13)
[2025-02-19] MEDS: 0.9% Saline Lock 10 ML Syringe IV ×3 (00:34→11:34)
[2025-02-19] MEDS: 0.9% Normal Saline (250mL Bag) 250 ML 15 ML IV (00:52)
[2025-02-19 01:00] VITALS: RESP 17; TEMP 37.4; O2SAT 96
[2025-02-19 05:07] VITALS: BP 155/66; PULSE 93; RESP 18; TEMP 37.2; O2SAT 97
[2025-02-19 05:31] VITALS: BP 105/50; BP 161/70; BP 163/74; PULSE 104; PULSE 108; PULSE 99
[2025-02-19] MEDS: Magnesium Chloride 64 MG Delay Rel.Tablet 128 MG PO (08:25)
[2025-02-19] MEDS: Cholecalciferol (VIT D3) 25 MCG TABLET (1,000 UNITS) PO (08:25)
[2025-02-19] MEDS: APIXABAN 2.5 MG TABLET (WCH) PO ×2 (08:26→21:48)
[2025-02-19] MEDS: Senna/Docusate Sodium 1 Tablet 2 TABLET PO ×2 (08:26→21:48)
[2025-02-19] MEDS: Mineral Oil/Petrolatum Cr 1.75oz Bottle 1 APPLIC TOPICAL ×2 (08:27→21:48)
[2025-02-19 18:00] VITALS: BP 115/70; PULSE 96; RESP 16; TEMP 37.1; O2SAT 99
[2025-02-20] MEDS: Ampicillin/Sulbactam 1,500 MG in 0.9% Normal Saline (50mL MB+) 50 ML 100 MG IV ×2 (00:03→05:36)
[2025-02-20 01:00] VITALS: O2SAT 94
[2025-02-20 05:24] VITALS: BP 158/72; PULSE 88; RESP 16; TEMP 37.1; O2SAT 94
[2025-02-20] MEDS: Mineral Oil/Petrolatum Cr 1.75oz Bottle 1 APPLIC TOPICAL ×2 (05:30→22:01)
[2025-02-20] MEDS: 0.9% Saline Lock 10 ML Syringe IV ×2 (05:36→22:21)
[2025-02-20 06:27] LABS: Anion Gap 9 (5-15); BUN 26 mg/dL (4-19); BUN/Creat Ratio 19.4 RATIO (10-20); Calcium,Total 8.8 mg/dL (7.6-11.0); Carbon Dioxide 23.9 mmol/L (21.0-32.0); Chloride 105 mmol/L (98-108); Estimated Creatinine Clearance 60.58 ml/min (50-250); Glucose 205 mg/dL (70-99); Potassium 4.5 mmol/L (3.3-5.1)
[2025-02-20] MEDS: Magnesium Chloride 64 MG Delay Rel.Tablet 128 MG PO (08:19)
[2025-02-20] MEDS: Cholecalciferol (VIT D3) 25 MCG TABLET (1,000 UNITS) PO (08:19)
[2025-02-20] MEDS: APIXABAN 2.5 MG TABLET (WCH) PO ×2 (09:08→22:04)
--- NOTE | 2025-02-20 09:56 | PCM.PROGNOTE ---
Subjective Subjective Afebrile VSS - orthostatics are negative today. Blood pressure over the weekend has ranged from 143/77 to 163/79 when he is not having orthostatics. Current BP while standing is 155/70. He is not on an antihypertensive. Maintaining appropriate oxygen saturation on RA Oral intake - FOOD good FLUIDS fair The blood sugar record was reviewed. Has had 1 BM since he arrived on rehab and that was Thursday. Orthostatics yesterday were still positive and the blood pressure lying down was 163/74 with a heart rate of 99. Standing up the blood pressure was 105/50 with a heart rate of 108. He felt slightly lightheaded. Discussed with nursing - no problems that need addressed Reviewed the THERAPY notes Medication list reviewed. Took Oxycodone 3 times yesterday and has had 1 dose today. All lab done this morning was personally reviewed. Sodium is 138 and the potassium is 4.5. The BUN is 26 with a creatinine of 1.34, down from 1.92 on 02/17/2025. Hemoglobin A1c was 6.2. Calcium is within normal limits. The lipid panel showed TRIg of 137 and a total cholesterol of 154 with an LDL of 100 and HDL of only 27. Urine culture has no growth. He is c/o not moving his bowels. Has had only 1 BM since arrival on rehab. I explained that this is due to narcotics, decreased movement and poor fluid intake. Rare cough, denies lightheadedness today except when he is walked a long way. Denies chest pain, hemoptysis, shortness of breath at rest, nausea/vomiting/abdominal pain, suprapubic pain and calf pain. I reviewed the overnight trending pule ox. 12.2% of the time he was monitored the O2 sat was 89% or less. There were 3 desaturations lasting longer than 1 minute. He was placed on supplemental oxygen at 2 L/min while sleeping. Oxycodone may have something to do with this........after the Oxycodone dose has been weaned down will repeat the overnight trending pulse ox prior to DC. HR was increased at > 100 for approximately 23 minutes while sleeping.......due to hypoxemia? could he be having AF? Objective Data Objective Data Vital Signs: Vital Signs Temp Pulse Resp BP Pulse Ox O2 Del Method O2 Flow Rate 98.8 F 88 16 158/72 H 94 Room Air 2 02/20/25 05:24 02/20/25 05:24 02/20/25 05:24 02/20/25 05:24 02/20/25 05:24 02/20/25 07:08 02/20/25 01:00 FiO2 21 02/17/25 22:01 Oxygen Flow Rate (L/min) 2 Oxygen Delivery Method Room Air Weight: 270 lb 8.997 oz Body Mass Index (BMI) 37.7 Intake & Output: Intake and Output for Last 24 Hours 02/18/25 02/19/25 02/20/25 23:59 23:59 23:59 Intake Total 4480 / 4480 1297 / 1297 300 / 300 Output Total 1600 / 1600 1075 / 1075 925 / 925 Balance 2880 / 2880 222 / 222 -625 / -625 Lab / Micro Data 02/18/25 04:35 02/20/25 05:19 Labs: Laboratory Results - last 24 hr 02/19/25 11:34: POC Glucose 132 H 02/19/25 16:29: POC Glucose 170 H 02/19/25 22:08: POC Glucose 243 H 02/20/25 05:19: Sodium 138, Potassium 4.5, Chloride 105, Carbon Dioxide 23.9, Anion Gap 9, BUN 26 H, Creatinine 1.34 H, Estim Creat Clear Calc 60.58, Est GFR (MDRD) Non-Af 54 L, BUN/Creatinine Ratio 19.4, Glucose 205 H, Calcium 8.8 02/20/25 06:29: POC Glucose 193 H Micro: Microbiology 02/17/25 16:58 Nasal Secretion SARS-CoV-2 Antigen (Rapid) - Final Social Homelessness:: Sheltered Physical Exam Const alert and no apparent distress General Appearance: cooperative HEENT HEENT Narrative: MM are not as dry as they were but, they are still dry. Eyes PERRL, EOMs intact bilaterally, conjunctivae normal and no scleral icterus Eyes Narrative: No discharge from the eyes and no mattering of the eyelashes. No visual field cuts. No nystagmus. Smooth pursuit. Neck supple General: trachea midline Chest Chest: symmetrical chest wall rise Resp clear to auscultation bilaterally Resp Narrative: 1 cough with the first deep breath. Effort and Inspection: Negative for tachypneic or labored Cardio regular rate, regular rhythm and no gallops Cardio Narrative: Increased resting heart rate. No ectopy. GI normal to inspection, nondistended, normoactive bowel sounds, soft to palpation and non-tender GI Narrative: No guarding with palpation. Urine in the Tsang bag is greenstone polisher operator than it was at admission to rehab. no CVA tenderness Bladder / Kidney Exam: catheter in place urethral (urine in the Tsang bag is dark alber. ) Extremity no calf tenderness Extremity Narrative: ELLY hose are in place. Skin Skin Narrative: He has a area of dry, scaley, hyperpigmented skin on the distal anterior R leg at about mid tibia. Neuro oriented x3, CN's II-XII intact bilaterally, moves all extremities and no focal motor deficits Psych mental status grossly normal, thought process normal, cooperative, affect normal and speech normal; Negative for denies hallucinations, denies homicidal ideation or denies suicidal ideation Appearance: grossly normal, appropriate and well kempt Attitude: calm and engaged Activity / Motor Behavior: appropriate eye contact Assessment & Plan Assessment/Plan (1) Physical debility: (2) Status post left hip replacement: (3) Acute blood loss as cause of postoperative anemia: (4) Erosive esophagitis: (5) Aspiration pneumonia: QUALIFIERS: Aspiration pneumonia type: due to gastric secretions Laterality: right Lung location: unspecified part of lung Qualified Code(s): J69.0 - Pneumonitis due to inhalation of food and vomit (6) Dehydration: (7) Urine retention: (8) BPH (benign prostatic hyperplasia): QUALIFIERS: Lower urinary tract symptom presence: symptoms present Lower urinary tract symptom detail: urinary retention Qualified Code(s): N40.1 - Benign prostatic hyperplasia with lower urinary tract symptoms; R33.8 - Other retention of urine (9) Enlarged prostate: (10) Diabetes mellitus, type 2: QUALIFIERS: Diabetes mellitus custodial insulin use: without terminal system operator use Diabetes mellitus complication status: with kidney complications (11) Chronic renal failure (CRF), stage 3b: (12) Hiatal hernia with GERD: (13) Morbid obesity: (14) KATHERINE (obstructive sleep apnea): PLAN: Plan 1. Continue therapy 2. Check a magnesium and phosphorus today 3. Start atorvastatin 4. Check orthostatics today now that he is better hydrated. 5. Voiding trail after he has had 5-6 doses of Flomax. 6. Start Glimepiride 1 mg PO daily today. Continue SSI for now 7. I reinforced with him the importance of maintaining good fluid intake to prevent acute on chronic renal failure. 8. Laxative today. 9. Minimal cough and his lungs are clear to auscultation today. He has had no fevers and has not been receiving Tylenol. Discontinue Unasyn and start Augmentin to finish 7 days of treatment for right upper lobe pneumonia suspected to be due to aspiration. 10. Continue to monitor BP........consider adding an FLORENCE or an ARB.......or defer to his PCP to deal with as OP......pt is somewhat resistant to any change in his medications. We are awaiting the records from PCP. 11. check a urine microalbumin 12. Doing OK with the decrease in the Gabapentin to 100 mg TID from 300 mg TID.......will change the dosing to BID and would like to taper off prior to DC from rehab. 13. Restart Tylenol to help with pain control. Spent time with him trying to educate him an why it is important to maintain good water intake and what it does to his kidney function if he doesn't and why drinking maple water to keep himself hydrated is probably not ivey in a diabetic. Charges/Coding Visit Charges Inpatient E&M: 62729 Subs Hosp L2
[2025-02-20 11:11] LABS: Magnesium 1.9 mg/dL (1.5-2.2)
[2025-02-20 11:31] VITALS: BP 155/70; BP 156/70; BP 157/72; PULSE 82; PULSE 86; PULSE 88
[2025-02-20] MEDS: Polyethylene Glycol 3350 17 GM PACKET PO (12:19)
[2025-02-20 13:23] LABS: Microalbumin,Random Urine 79.3 mg/L (NO RANGE EST.)
[2025-02-20 18:00] VITALS: BP 151/63; PULSE 89; RESP 17; TEMP 37.1; O2SAT 98
[2025-02-20] MEDS: Senna/Docusate Sodium 1 Tablet 2 TABLET PO (22:18)
--- NOTE | 2025-02-21 04:00 | NURSING ---
SpO2 @ 2L- 94%
[2025-02-21 06:00] VITALS: BP 113/83; PULSE 71; RESP 15; TEMP 36.7; O2SAT 98
[2025-02-21] MEDS: Mineral Oil/Petrolatum Cr 1.75oz Bottle 1 APPLIC TOPICAL ×2 (06:45→21:12)
[2025-02-21 07:20] VITALS: O2SAT 94
[2025-02-21] MEDS: Cholecalciferol (VIT D3) 25 MCG TABLET (1,000 UNITS) PO (08:12)
[2025-02-21] MEDS: Polyethylene Glycol 3350 17 GM PACKET PO (08:12)
[2025-02-21] MEDS: Senna/Docusate Sodium 1 Tablet 2 TABLET PO ×2 (08:12→21:10)
[2025-02-21] MEDS: Magnesium Chloride 64 MG Delay Rel.Tablet 128 MG PO (08:12)
[2025-02-21] MEDS: APIXABAN 2.5 MG TABLET (WCH) PO ×2 (08:12→21:12)
--- NOTE | 2025-02-21 10:29 | PCM.PROGNOTE ---
Subjective Subjective Afebrile VSS -blood pressure this morning is 113/83 with a heart rate of 71. He is afebrile. Blood pressure over the past 24 hours has ranged from 113/83 to 158/72. Heart rate is always within normal limits. Maintaining appropriate oxygen saturation on RA while awake. O2 ordered for when he is sleeping due to hypoxemia with sleep. Oral intake - FOOD refused breakfast today and also refused breakfast on Thursday. He is eating 75 to 100% of all his other meals. FLUIDS he took 1540 p.o. yesterday and had 1825 out for a balance of -285. The blood sugar record was reviewed. He was started on Amaryl 1 mg daily yesterday and we are starting with a better fasting of 158 today. Will continue sliding scale insulin but he is getting minimal coverage. Discussed with nursing - refused a laxative yesterday per nursing....pt denies. Has had 1 BM since he arrived on rehab and that was on Thursday. Polyethylene glycol was added to the drug regimen yesterday. Reviewed the THERAPY notes - needed a lot of encouragement yesterday to do ADL's. Medication list reviewed. Tells me his pain is adequately controlled. He does say he feels drowsy during the day. He is on supplemental oxygen at night for hypoxemia with sleep/abnormal overnight trending pulse ox. Denies abdominal pain, nausea, heartburn, chest pain, shortness of breath, palpitations, calf pain. Objective Data Objective Data Vital Signs: Vital Signs Temp Pulse Resp BP Pulse Ox O2 Del Method O2 Flow Rate 98.1 F 71 15 113/83 H 94 Room Air 2 02/21/25 06:00 02/21/25 06:00 02/21/25 06:00 02/21/25 06:00 02/21/25 07:20 02/21/25 07:20 02/20/25 01:00 FiO2 21 02/17/25 22:01 Oxygen Flow Rate (L/min) 2 Oxygen Delivery Method Room Air Weight: 270 lb 8.997 oz Body Mass Index (BMI) 37.7 Intake & Output: Intake and Output for Last 24 Hours 02/19/25 02/20/25 02/21/25 23:59 23:59 23:59 Intake Total 1297 / 1297 1540 / 1540 890 / 890 Output Total 1075 / 1075 1825 / 1825 830 / 830 Balance 222 / 222 -285 / -285 60 / 60 Lab / Micro Data 02/18/25 04:35 02/20/25 05:19 Labs: Laboratory Results - last 24 hr 02/20/25 05:19: Phosphorus 4.0, Magnesium 1.9 02/20/25 11:20: POC Glucose 211 H 02/20/25 12:41: Ur Random Microalbumin 79.3 02/20/25 16:43: POC Glucose 216 H 02/20/25 22:09: POC Glucose 181 H 02/21/25 06:51: POC Glucose 158 H Micro: Microbiology 02/17/25 16:58 Nasal Secretion SARS-CoV-2 Antigen (Rapid) - Final Social Homelessness:: Sheltered Physical Exam Const alert, oriented x3 and no apparent distress Constitutional Narrative: sitting in the recliner eating well. General Appearance: cooperative Eyes PERRL, EOMs intact bilaterally, conjunctivae normal and no scleral icterus Eyes Narrative: No discharge from the eyes and no mattering of the eyelashes. No visual field cuts. No nystagmus. Smooth pursuit. Neck supple, No nodes and no carotid bruits General: trachea midline Chest Chest: symmetrical chest wall rise Resp normal respiratory effort and clear to auscultation bilaterally Resp Narrative: 1 cough with the first deep breath. Effort and Inspection: Negative for tachypneic Cardio regular rate and regular rhythm Cardio Narrative: resting HR is better since his fluid intake has improved. GI normal to inspection, nondistended, normoactive bowel sounds, soft to palpation and non-tender GI Narrative: Denies feeling bloated or nauseated. no CVA tenderness Bladder / Kidney Exam: catheter in place urethral (urine in the Tsang bag is dark alber. ) Extremity no calf tenderness Extremity Narrative: ELLY hose are in place. Skin Skin Narrative: He has a area of dry, scaley, hyperpigmented skin on the distal anterior R leg at about mid tibia. Rashes: no rashes Neuro oriented x3, CN's II-XII intact bilaterally, moves all extremities and no focal motor deficits Psych mental status grossly normal, thought process normal, cooperative, affect normal and speech normal; Negative for denies hallucinations, denies homicidal ideation or denies suicidal ideation Appearance: grossly normal, appropriate and well kempt Attitude: calm and engaged Activity / Motor Behavior: appropriate eye contact Assessment & Plan Assessment/Plan (1) Physical debility: (2) Status post left hip replacement: (3) Acute blood loss as cause of postoperative anemia: (4) Erosive esophagitis: (5) Aspiration pneumonia: QUALIFIERS: Aspiration pneumonia type: due to gastric secretions Laterality: right Lung location: unspecified part of lung Qualified Code(s): J69.0 - Pneumonitis due to inhalation of food and vomit (6) Dehydration: (7) Urine retention: (8) BPH (benign prostatic hyperplasia): QUALIFIERS: Lower urinary tract symptom presence: symptoms present Lower urinary tract symptom detail: urinary retention Qualified Code(s): N40.1 - Benign prostatic hyperplasia with lower urinary tract symptoms; R33.8 - Other retention of urine (9) Enlarged prostate: (10) Diabetes mellitus, type 2: QUALIFIERS: Diabetes mellitus termite technician insulin use: without termite technician use Diabetes mellitus complication status: with kidney complications (11) Chronic renal failure (CRF), stage 3b: (12) Hiatal hernia with GERD: (13) Morbid obesity: (14) KATHERINE (obstructive sleep apnea): PLAN: Will repeat and overnight trending pulse ox the night prior to DC from rehab to see if he still desaturates off most of the sedating medications. PLAN: Plan 1. Continue therapy 2. He was given milk of magnesia today. Had polyethylene glycol and senna yesterday and today. 3. I reviewed the records from Dr. Hugo. He is supposed to be taking Lisinopril 5 mg and he is not taking this on rehab........it was stopped while on the acute side of the hospital for Acute on Chronic renal failure. Creat was down to baseline yesterday of 1.32. Will start Lisinopril 5 mg daily today.. Continue to monitor the BP closely and recheck a BMP on Thursday. 4. CBC on Thursdayvin and I discussed decreasing the Oxycodone dose to 5 mg and he is agreeable to this. He only had 1 dose of Oxycodone yesterday. Gabapentin was decreased from 300 mg TID to 100 mg and now he is on gabapentin 100 mg BID. He was not on this medication prior to admission to the hospital. The plan is to have him off Gabapentin at the time of DC. Charges/Coding Visit Charges Inpatient E&M: 84454 Subs Hosp L1
[2025-02-21 17:32] VITALS: BP 138/54; PULSE 94; RESP 16; TEMP 37.2; O2SAT 96
[2025-02-22 05:27] VITALS: BP 129/75; PULSE 81; RESP 16; TEMP 36.6; O2SAT 95
[2025-02-22 05:28] VITALS: BMI 41.2
[2025-02-22] MEDS: Mineral Oil/Petrolatum Cr 1.75oz Bottle 1 APPLIC TOPICAL (05:30)
[2025-02-22 06:41] VITALS: O2SAT 94
[2025-02-22] MEDS: Magnesium Chloride 64 MG Delay Rel.Tablet 128 MG PO (07:51)
[2025-02-22] MEDS: Polyethylene Glycol 3350 17 GM PACKET PO (07:51)
[2025-02-22] MEDS: APIXABAN 2.5 MG TABLET (WCH) PO ×2 (07:51→21:16)
[2025-02-22] MEDS: Senna/Docusate Sodium 1 Tablet 2 TABLET PO ×2 (07:51→21:15)
[2025-02-22] MEDS: Cholecalciferol (VIT D3) 25 MCG TABLET (1,000 UNITS) PO (07:51)
[2025-02-22] MEDS: 0.9% Saline Lock 10 ML Syringe IV (08:01)
[2025-02-22 14:42] VITALS: BMI 39.6
[2025-02-22 17:20] VITALS: BP 121/52; PULSE 89; RESP 16; TEMP 37.1; O2SAT 99
[2025-02-23 06:00] VITALS: BP 121/48; PULSE 90; RESP 16; TEMP 36.6; O2SAT 99
[2025-02-23] MEDS: Cholecalciferol (VIT D3) 25 MCG TABLET (1,000 UNITS) PO (08:08)
[2025-02-23] MEDS: Senna/Docusate Sodium 1 Tablet 2 TABLET PO ×2 (08:08→21:01)
[2025-02-23] MEDS: Magnesium Chloride 64 MG Delay Rel.Tablet 128 MG PO (08:08)
[2025-02-23] MEDS: APIXABAN 2.5 MG TABLET (WCH) PO ×2 (08:08→21:01)
[2025-02-23] MEDS: Polyethylene Glycol 3350 17 GM PACKET PO (08:09)
--- NOTE | 2025-02-23 09:25 | PCM.PROGNOTE ---
Subjective Subjective Jeremiah was seen on team rounds today. His nephew, Rahul, who is his POA was present in the room. All questions were answered. Afebrile VSS -last 4 blood pressures have been better and the blood pressure this morning is 121/48. Lisinopril was restarted yesterday. It had been discontinued in the hospital for acute on chronic renal failure. Heart rate has ranged from 81-90 over the past 24 hours. Maintaining appropriate oxygen saturation on RA Oral intake - FOOD good FLUIDS he had 1160 in yesterday and 1550 out for fluid balance of -390. Overnight he had 120 in and 1350 for a fluid balance of -1230. He had a BM yesterday after Dulcolax tabs. Was given a Dulcolax suppository today and it was effective. Discussed with nursing - no problems that need addressed Reviewed the THERAPY notes - Not wanting to complete the 3 hours of therapy daily and giving the therapists a hard time when they are trying to encourage him. Medication list reviewed. Tells me his pain is better and his Oxycodone need has significantly decreased. Gaapentin has been weaned down. Minus chest pain, shortness of breath, cough, palpitations, calf pain. Argumentative. Objective Data Objective Data Vital Signs: Vital Signs Temp Pulse Resp BP Pulse Ox O2 Del Method O2 Flow Rate 97.9 F 90 16 121/48 H 99 Room Air 2 02/23/25 06:00 02/23/25 06:00 02/23/25 06:00 02/23/25 06:00 02/23/25 06:00 02/23/25 06:00 02/20/25 01:00 FiO2 21 02/17/25 22:01 Oxygen Flow Rate (L/min) 2 Oxygen Delivery Method Room Air Weight: 284 lb 2.813 oz Body Mass Index (BMI) 39.6 Intake & Output: Intake and Output for Last 24 Hours 02/21/25 02/22/25 02/23/25 23:59 23:59 23:59 Intake Total 1490 / 1490 1160 / 1160 120 / 120 Output Total 1130 / 1130 1550 / 2150 1350 / 1350 Balance 360 / 360 -390 / -990 -1230 / -1230 Lab / Micro Data 02/24/25 05:32 02/24/25 05:32 Labs: Laboratory Results - last 24 hr 02/22/25 11:06: POC Glucose 165 H 02/22/25 16:03: POC Glucose 158 H 02/22/25 21:22: POC Glucose 145 H 02/23/25 06:27: POC Glucose 155 H Micro: Microbiology 02/17/25 16:58 Nasal Secretion SARS-CoV-2 Antigen (Rapid) - Final Social Homelessness:: Sheltered Physical Exam Const alert, oriented x3 and no apparent distress Constitutional Narrative: Sitting in the recliner at the bedside with his legs once again dependent. Resp normal respiratory effort and clear to auscultation bilaterally Resp Narrative: No conversational dyspnea Effort and Inspection: Negative for tachypneic Cardio regular rate, regular rhythm and no gallops Cardio Narrative: No ectopy GI normal to inspection, nondistended, normoactive bowel sounds Extremity no calf tenderness Extremity Narrative: Edema in the feet and lower extremities has decreased since admission to rehab. Bebo wraps and ELLY hose are in place. Skin Rashes: no rashes Assessment & Plan Assessment/Plan (1) Physical debility: (2) Status post left hip replacement: (3) Acute blood loss as cause of postoperative anemia: (4) Erosive esophagitis: (5) Aspiration pneumonia: QUALIFIERS: Aspiration pneumonia type: due to gastric secretions Laterality: right Lung location: unspecified part of lung Qualified Code(s): J69.0 - Pneumonitis due to inhalation of food and vomit (6) Urine retention: (7) BPH (benign prostatic hyperplasia): QUALIFIERS: Lower urinary tract symptom presence: symptoms present Lower urinary tract symptom detail: urinary retention Qualified Code(s): N40.1 - Benign prostatic hyperplasia with lower urinary tract symptoms; R33.8 - Other retention of urine (8) Enlarged prostate: (9) Diabetes mellitus, type 2: QUALIFIERS: Diabetes mellitus terminal system operator insulin use: without detention use Diabetes mellitus complication status: with kidney complications (10) Chronic renal failure (CRF), stage 3b: (11) Hiatal hernia with GERD: (12) Morbid obesity: (13) KATHERINE (obstructive sleep apnea): PLAN: Plan 1. Continue therapy 2. Continue Amaryl 2 mg p.o. daily 3. Voiding trial today 4. Continue oxygen supplementation at night. Repeat an overnight trending pulse ox prior to discharge........ gabapentin and oxycodone may have contributed to hypoxemia with sleep. Charges/Coding Visit Charges Inpatient E&M: 89155 Subs Hosp L2
--- NOTE | 2025-02-23 12:51 | CASEMGMT ---
Social Work IDT met with patient and nephew for Team meeting. Discussed patient's progress in PT/OT/SN/MD. Pt has paid privately through 03/15. SW offered to assist with DC planning once pt has elected to DC. Pt will DC home and continue getting assistance from niece and nephew. Pt stated he would like to DC early next week. IDT will continue assessing pt's abilities and progress to ensure safety to return home in goal timeframe. SW to monitor for DC needs. Will ReTeam weekly. Radha Vilchis PLATE WORKER POWERHOUSE MECHANIC SUPERVISOR
--- NOTE | 2025-02-23 15:25 | NURSING ---
Entered room and asked pt if he felt he needed to void, since its been 4 hours after gould removed. pt stated no and refused to try. Explained that at 6pm this nurse would perform a bladder scan and if he was retaining, he would need cathed. pt stated no and that we removed the catheter and he was not letting us cath him again. Will continue to monitor and provide education.
[2025-02-23 18:00] VITALS: BP 134/59; PULSE 92; RESP 18; TEMP 37.2; O2SAT 96
[2025-02-24 05:53] LABS: Hematocrit 31.4 % (40-54); Hemoglobin 10.5 g/dL (13.0-16.5); Mean Corp Hgb Conc 33.4 g/dL (32-36); Mean Corpuscular Volume 92.9 fL (80-94); Mean Platelet Vol. 9.0 fl (6.2-12.0); Platelet Count 356 K/mm3 (150-450); RBC Distribution Width CV 13.4 % (11.6-14.6); RBC Distribution Width SD 45.7 fl (35.1-43.9); Red Blood Count 3.38 M/mm3 (4.6-6.2); White Blood Count 10.8 K/mm3 (4.4-11.0)
[2025-02-24 06:00] VITALS: BP 151/70; PULSE 102; RESP 16; TEMP 36.6; O2SAT 95
[2025-02-24 06:15] LABS: Anion Gap 8 (5-15); BUN 34 mg/dL (4-19); BUN/Creat Ratio 24.7 RATIO (10-20); Calcium,Total 9.1 mg/dL (7.6-11.0); Carbon Dioxide 24.8 mmol/L (21.0-32.0); Chloride 104 mmol/L (98-108); Estimated Creatinine Clearance 59.93 ml/min (50-250); Glucose 164 mg/dL (70-99); Potassium 4.6 mmol/L (3.3-5.1)
[2025-02-24] MEDS: APIXABAN 2.5 MG TABLET (WCH) PO ×2 (08:33→21:57)
[2025-02-24] MEDS: Polyethylene Glycol 3350 17 GM PACKET PO (08:33)
[2025-02-24] MEDS: Senna/Docusate Sodium 1 Tablet 2 TABLET PO ×2 (08:33→22:02)
[2025-02-24] MEDS: Cholecalciferol (VIT D3) 25 MCG TABLET (1,000 UNITS) PO (08:33)
[2025-02-24] MEDS: Magnesium Chloride 64 MG Delay Rel.Tablet 128 MG PO (08:33)
--- NOTE | 2025-02-24 09:55 | PN_ITS ---
Subjective Subjective Afebrile Vital signs stable. Has been compliant with senna and Miralax. Had to have laxatives 3 X's this week. Had 1 BM on the and 1 yesterday. He had 2 postvoid residuals done yesterday 1 was 205 and the next was 77. All lab from this morning was personally reviewed. White blood cell count is normal at 10.8. Hemoglobin is 10.5, down from 11.1 on 02/18/2025 but he is better hydrated. Platelets are within normal limits. Sodium is 137 and the potassium is 4.6. BUN is 34 with a creatinine of 1.39 today which is within his baseline. Denies pain and is no longer taking Oxycodone. Denies calf pain, CP, SOB, cough, abd pain. Objective Data Objective Data Vital Signs: Vital Signs Temp Pulse Resp BP Pulse Ox O2 Del Method O2 Flow Rate 97.8 F 102 H 16 151/70 H 95 Room Air 2 02/24/25 06:00 02/24/25 06:00 02/24/25 06:00 02/24/25 06:00 02/24/25 06:00 02/24/25 06:00 02/20/25 01:00 FiO2 21 02/17/25 22:01 Oxygen Flow Rate (L/min) 2 Oxygen Delivery Method Room Air Weight: 284 lb 2.813 oz Body Mass Index (BMI) 39.6 Intake & Output: Intake and Output for Last 24 Hours 02/22/25 02/23/25 02/24/25 23:59 23:59 23:59 Intake Total 1160 / 1160 1860 / 1860 240 / 240 Output Total 1550 / 2150 2250 / 2250 900 / 900 Balance -390 / -990 -390 / -390 -660 / -660 Lab / Micro Data 02/24/25 05:32 02/24/25 05:32 Labs: Laboratory Results - last 24 hr 02/23/25 11:34: POC Glucose 144 H 02/23/25 16:29: POC Glucose 183 H 02/23/25 21:08: POC Glucose 170 H 02/24/25 05:32: WBC 10.8, RBC 3.38 L, Hgb 10.5 L, Hct 31.4 L, MCV 92.9, MCH 31.1, MCHC 33.4, RDW Std Deviation 45.7 H, RDW Coeff of Sherry 13.4, Plt Count 356, MPV 9.0, Sodium 137, Potassium 4.6, Chloride 104, Carbon Dioxide 24.8, Anion Gap 8, BUN 34 H, Creatinine 1.39 H, Estim Creat Clear Calc 59.93, Est GFR (MDRD) Non-Af 52 L, BUN/Creatinine Ratio 24.7 H, Glucose 164 H, Calcium 9.1 02/24/25 05:45: POC Glucose 164 H Micro: Microbiology 02/17/25 16:58 Nasal Secretion SARS-CoV-2 Antigen (Rapid) - Final Social Homelessness:: Sheltered Physical Exam Const alert, oriented x3 and no apparent distress Constitutional Narrative: sitting in the recliner. Cooperative with therapy to a degree.......Does not want to do 3 hours of therapy daily and will tell them he is done. He picks and chooses what he wants to do. Resp normal respiratory effort and clear to auscultation bilaterally Resp Narrative: No conversational dyspnea. Breath sounds are somewhat diminished, most likely secondary to body habitus. Effort and Inspection: Negative for tachypneic Cardio regular rate, regular rhythm and no gallops Cardio Narrative: No ectopy GI normal to inspection, nondistended, normoactive bowel sounds, soft to palpation and non-tender GI Narrative: No guarding with palpation Extremity no calf tenderness General Extremity: edema bilateral (This has improved with compression applied to the lower extremities.) lower extremity Skin Rashes: no rashes Wound Narrative: The incision is intact with no dehiscence, pavithra-incisional erythema or purulent discharge. Assessment & Plan Assessment/Plan (1) Physical debility: (2) Status post left hip replacement: (3) Acute blood loss as cause of postoperative anemia: (4) Erosive esophagitis: (5) Aspiration pneumonia: QUALIFIERS: Aspiration pneumonia type: due to gastric secretions Laterality: right Lung location: unspecified part of lung Qualified Code(s): J 69.0 - Pneumonitis due to inhalation of food and vomit PLAN: RUL (6) Urine retention: PLAN: Improved with Flomax. (7) BPH (benign prostatic hyperplasia): QUALIFIERS: Lower urinary tract symptom detail: urinary retention Lower urinary tract symptom presence: symptoms present Qualified Code(s): N40.1 - Benign prostatic hyperplasia with lower urinary tract symptoms; R33.8 - Other retention of urine (8) Enlarged prostate: (9) Diabetes mellitus, type 2: QUALIFIERS: Chronic kidney disease stage: stage 3 (moderate) C hronic kidney disease stage 3 subtype: stage 3b (GFR 30-44) Diabetes mellitus complication detail: with chronic kidney disease Diabetes mellitus complication status: with kidney complications Diabetes mellitus m[facility] insulin use: [facility] intermediate project manager use Qualified Code(s): E11.22 - Type 2 diabetes mellitus with diabetic chronic kidney disease; N18.32 - Chronic kidney disease, stage 3b (10) Chronic renal failure (CRF), stage 3b: (11) Hiatal hernia with GERD: (12) Morbid obesity: PLAN: weight loss encouraged. (13) KATHERINE (obstructive sleep apnea): PLAN: repeat an overnight trending pulse ox prior to DC. PLAN: Plan 1. Continue therapy 2. Increase MiraLAX to twice daily 3. Continue Amaryl 2 mg daily.... This is likely safer for him the Glipizide since he has chronic renal failure. He does not routinely drink enough water and unless strongly encouraged. Baseline creatinine is reportedly around 1.3 however it was 1.59 as an outpatient on 02/03/2025. GFR on that date was consistent with stage IIIb chronic renal failure. This may be multifactorial. due to IV volume depletion and possible chronic urine retention due to enlarged prostate. 52 which is consistent with stage IIIa chronic renal failure. 4. Continue lisinopril but, will need to follow potassium in light of CRF. It was just recently restarted.....it was discontinued in the hospital for acute on chronic renal failure. 5. Recheck a BMP on Thursday and a . 6. Continue Flomax. I suspect he will go back to using the prostate supplement he was taking at home when he is discharged........ 7. Continue Eliquis for 28 days post op and then DC. 8. Avoid nephrotoxic agents going forward. 9. CXR prior to DC.......if the abnormality is still present in the RUL will recommend a CT chest as OP. 10. DC gabapentin. Charges/Coding Visit Charges Inpatient E&M: 12950 Subs Hosp L1
[2025-02-24 18:00] VITALS: BP 126/60; PULSE 88; RESP 17; TEMP 37.2; O2SAT 96
[2025-02-25] MEDS: 0.9% Saline Lock 10 ML Syringe IV ×2 (05:18→21:23)
[2025-02-25 06:00] VITALS: BP 129/56; PULSE 96; RESP 16; TEMP 37.2; O2SAT 98
[2025-02-25] MEDS: Cholecalciferol (VIT D3) 25 MCG TABLET (1,000 UNITS) PO (08:25)
[2025-02-25] MEDS: Senna/Docusate Sodium 1 Tablet 2 TABLET PO (08:25)
[2025-02-25] MEDS: APIXABAN 2.5 MG TABLET (WCH) PO ×2 (08:26→21:22)
[2025-02-25] MEDS: Magnesium Chloride 64 MG Delay Rel.Tablet 128 MG PO (08:26)
[2025-02-25 17:33] VITALS: BP 142/61; PULSE 93; RESP 17; TEMP 36.7; O2SAT 97
[2025-02-26 06:00] VITALS: BP 141/60; PULSE 95; RESP 17; TEMP 37.5; O2SAT 98
[2025-02-26] MEDS: APIXABAN 2.5 MG TABLET (WCH) PO ×2 (08:15→20:57)
[2025-02-26] MEDS: Magnesium Chloride 64 MG Delay Rel.Tablet 128 MG PO (08:15)
[2025-02-26] MEDS: Cholecalciferol (VIT D3) 25 MCG TABLET (1,000 UNITS) PO (08:15)
[2025-02-26 17:06] VITALS: BP 151/55; PULSE 97; RESP 16; TEMP 36.7; O2SAT 98
[2025-02-26 19:42] VITALS: PULSE 100; RESP 18; O2SAT 99
[2025-02-27] VITALS (7 sets, daily range): BP systolic 94–139; BP diastolic 44–67; PULSE 88–114; RESP 17–20; TEMP 36.9–37.6; O2SAT 95–97
[2025-02-27 06:05] LABS: Hematocrit 31.2 % (40-54); Hemoglobin 10.3 g/dL (13.0-16.5)
[2025-02-27] MEDS: 0.9% Saline Lock 10 ML Syringe IV (06:10)
[2025-02-27 06:20] LABS: Anion Gap 10 (5-15); BUN 31 mg/dL (4-19); BUN/Creat Ratio 20.9 RATIO (10-20); Calcium,Total 9.1 mg/dL (7.6-11.0); Carbon Dioxide 24.2 mmol/L (21.0-32.0); Chloride 102 mmol/L (98-108); Estimated Creatinine Clearance 56.67 ml/min (50-250); Glucose 169 mg/dL (70-99); Potassium 4.6 mmol/L (3.3-5.1)
--- NOTE | 2025-02-27 06:24 | NURSING ---
temporal temp 99.6, denies cough. denies dysuria. no gi distress. Incision to left hip without s/sx infection. I feel fine. Written communication left for Dr. Dodd review this date.
[2025-02-27] MEDS: Senna/Docusate Sodium 1 Tablet 2 TABLET PO (07:39)
[2025-02-27] MEDS: Magnesium Chloride 64 MG Delay Rel.Tablet 128 MG PO (07:39)
[2025-02-27] MEDS: Cholecalciferol (VIT D3) 25 MCG TABLET (1,000 UNITS) PO (07:40)
[2025-02-27] MEDS: APIXABAN 2.5 MG TABLET (WCH) PO (07:41)
--- NOTE | 2025-02-27 09:36 | PCM.PROGNOTE ---
Subjective Subjective Afebrile - temp today is 99.6...he is getting Tylenol 1 MG q8H VSS - orthostatics are + today. Maintaining appropriate oxygen saturation on RA-97 to 99% Oral intake - FOOD FLUIDS poor Discussed with nursing - no problems that need addressed Reviewed the THERAPY notes Medication list reviewed. Hemoglobin is stable at 10.3. Sodium is 136 and the potassium is 4.6 today. The BUN is 31 and the creatinine is 1.47 which is less than it was on 02/03/2025 on preop labs. It was 1.59. Jeremiah denies lightheadedness, chest pain, cough, shortness of breath, palpitations, nausea/vomiting/abdominal pain, dysuria and calf tenderness. He is only taking Tylenol for pain control. Objective Data Objective Data Vital Signs: Vital Signs Temp Pulse Resp BP Pulse Ox O2 Del Method O2 Flow Rate 99.6 F H 108 H 18 122/52 H 97 Room Air 2 02/27/25 06:20 02/27/25 08:56 02/27/25 06:20 02/27/25 08:56 02/27/25 06:20 02/27/25 06:20 02/20/25 01:00 FiO2 21 02/17/25 22:01 Oxygen Flow Rate (L/min) 2 Oxygen Delivery Method Room Air Weight: 284 lb 2.813 oz Body Mass Index (BMI) 39.6 Intake & Output: Intake and Output for Last 24 Hours 02/25/25 02/26/25 02/27/25 23:59 23:59 23:59 Intake Total 1310 / 1310 825 / 825 540 / 540 Output Total 700 / 700 1300 / 1300 175 / 175 Balance 610 / 610 -475 / -475 365 / 365 Lab / Micro Data 02/27/25 09:54 02/27/25 05:15 Labs: Laboratory Results - last 24 hr 02/26/25 11:32: POC Glucose 136 H 02/26/25 17:01: POC Glucose 166 H 02/26/25 20:55: POC Glucose 184 H 02/27/25 05:15: Hgb 10.3 L, Hct 31.2 L, Sodium 136, Potassium 4.6, Chloride 102, Carbon Dioxide 24.2, Anion Gap 10, BUN 31 H, Creatinine 1.47 H, Estim Creat Clear Calc 56.67, Est GFR (MDRD) Non-Af 49 L, BUN/Creatinine Ratio 20.9 H, Glucose 169 H, Calcium 9.1 02/27/25 05:46: POC Glucose 168 H Micro: Microbiology 02/17/25 16:58 Nasal Secretion SARS-CoV-2 Antigen (Rapid) - Final Social Homelessness:: Sheltered Physical Exam Const alert, oriented x3 and no apparent distress Constitutional Narrative: Sitting in the recliner at the bedside with his legs mostly dependent. HEENT Mouth: dry mucous membranes Resp normal respiratory effort and clear to auscultation bilaterally Resp Narrative: No conversational dyspnea Effort and Inspection: Negative for tachypneic Cardio regular rhythm Cardio Narrative: Resting heart rate is elevated and with standing the heart rate went to 114. GI normal to inspection, nondistended, normoactive bowel sounds, soft to palpation and non-tender GI Narrative: Denies constipation. Extremity no calf tenderness Extremity Narrative: edema of the LE's is better.....ELLY hose are in place. No pain with compression of the calf. Skin Skin Narrative: Nursing tells me that the incision is intact with no erythema or purulent DC. Will examine when the milagros are removed today. Assessment & Plan Assessment/Plan (1) Physical debility: (2) Status post left hip replacement: (3) Acute blood loss as cause of postoperative anemia: (4) Erosive esophagitis: (5) Aspiration pneumonia: QUALIFIERS: Aspiration pneumonia type: due to gastric secretions Laterality: right Lung location: unspecified part of lung Qualified Code(s): J69.0 - Pneumonitis due to inhalation of food and vomit (6) Urine retention: (7) BPH (benign prostatic hyperplasia): QUALIFIERS: Lower urinary tract symptom presence: symptoms present Lower urinary tract symptom detail: urinary retention Qualified Code(s): N40.1 - Benign prostatic hyperplasia with lower urinary tract symptoms; R33.8 - Other retention of urine (8) Enlarged prostate: (9) Diabetes mellitus, type 2: QUALIFIERS: Diabetes mellitus terminal operations manager insulin use: without senior living use Diabetes mellitus complication status: with kidney complications Diabetes mellitus complication detail: with chronic kidney disease Chronic kidney disease stage: stage 3 (moderate) Chronic kidney disease stage 3 subtype: stage 3b (GFR 30-44) Qualified Code(s): E11.22 - Type 2 diabetes mellitus with diabetic chronic kidney disease; N18.32 - Chronic kidney disease, stage 3b (10) Chronic renal failure (CRF), stage 3b: (11) Hiatal hernia with GERD: (12) Morbid obesity: (13) KATHERINE (obstructive sleep apnea): (14) Orthostatic hypotension: (15) Pulmonary embolism: QUALIFIERS: Pulmonary embolism type: unspecified Chronicity: unspecified Acute cor pulmonale presence: unspecified Qualified Code(s): I26.99 - Other pulmonary embolism without acute cor pulmonale (16) Neutrophilic leukocytosis: PLAN: Plan 1. Continue therapy 2. Check UA 3. CBC with differential now 4. Stop Tylenol 5. He was encouraged to increase his fluid intake due to orthostasis. 6. He has been drinking water today........will recheck the orthostatics later today.......worried the low BP and increased HR with a low grade fever may be due to VTE. He had a large PE after R hip replacement in the past.........he had lightheadedness and increased HR prior to the syncopal event that got him to the ED. D- dimer may still be elevated from the surgery. Will order venous US's of the LE's Charges/Coding Visit Charges Inpatient E&M: 75093 Subs Hosp L2
[2025-02-27 10:02] LABS: Hematocrit 31.6 % (40-54); Hemoglobin 10.4 g/dL (13.0-16.5); Immature Granulocytes Count 0.160 X10^3/uL (0.0-0.0); Mean Corp Hgb Conc 32.9 g/dL (32-36); Mean Corpuscular Volume 94.3 fL (80-94); Mean Platelet Vol. 8.9 fl (6.2-12.0); NRBC Flagged by Analyzer 0 % (0-5); Platelet Count 406 K/mm3 (150-450); RBC Distribution Width CV 13.4 % (11.6-14.6); RBC Distribution Width SD 46.3 fl (35.1-43.9); Red Blood Count 3.35 M/mm3 (4.6-6.2); White Blood Count 15.3 K/mm3 (4.4-11.0)
--- NOTE | 2025-02-27 10:51 | VDLE_ITS ---
Reason For Study Reason For Study: Swelling BLE RIGHT LEFT CFV is compressible, spontaneous, phasic, competent GSV is normal. and demonstrates normal augmentation. CFV is compressible, spontaneous, phasic, competent, FV is compressible, spontaneous, phasic, competent and demonstrates normal augmentation. and demonstrates normal augmentation. FV is compressible, spontaneous, phasic, competent POP V is compressible, spontaneous, phasic, competent and demonstrates normal augmentation. and demonstrates normal augmentation. POP V is compressible, spontaneous, phasic, competent T/P Trunk is compressible. and demonstrates normal augmentation. PTV is compressible. T/P Trunk is compressible. RT PerV is compressible. PTV is compressible. Rt calf GSV is DILATED and NON COMPRESSIBLE LT PerV is compressible. consistent with acute SVT Lt GastrocV is DILATED and NON COMPRESSIBLE Rt thigh GSV is compressible consistent with acute DVT Very difficult to visualize FV mid/distal and calf Very difficult to visualize FV mid/distal and calf veins due to patient body habitus. veins due to patient body habitus. Procedure This is a venous duplex using B-mode, color flow and spectral Doppler. Exam performed portable in patient room. The study was technically difficult. A preliminary report was called and/or faxed to Dr. Dodd. VL/Venous Duplex US - Jose Luis Extrem Interpretation Summary Acute deep vein thrombosis noted in the left gastrocnemius vein. Acute superficial vein thrombosis noted in the right great saphenous vein below the knee. Ordering Physician: Asia Dodd Referring Physician: Kerwin Hugo Performed By: Jessica Rm, ALEKSANDER, RVT
--- NOTE | 2025-02-27 13:13 | PCM.DC ---
Discharge Instructions Diet Discharge Diet: Carb Control Diet and - (Low salt, low fat) DC O2, CPAP, BIPAP needs Home O2 Discharge instructions: No Dressing / Incision Discharge Activity: May Not Drive, May Shower and Use Walker Weight Bearing Status: Full weight bearing Keep extremity elevated above heart level: Legs Dressing / Incision Call your doctor if your incision/area has: Continuous Slow Oozing, Sudden Increased Bleeding, Increased Pain/ Swelling, Increased Redness and Foul Smelling Discharge Call your doctor if you observe: Fever of 101 or Higher, Inability to urinate, Inability to have a bowel movement, Shortness of breath, Dizziness, Fainting spells, Swelling in the ankles, Chest pain, Increased palpitations (irregular heartbeat), Calf discomfort and Uncontrolled pain Suture Line Care: Avoid Pulling/Pushing and Avoid Pinching/Bending Cleanse incision/area with: Soap & Water Follow Up Care Please Follow Up With: Kerwin Hugo PA When: 7-10 days from DC. Test Results: Test results from this visit will be discussed in further detail at your follow-up appointment, if applicable. Pending Tests Upon Discharge: none Discharge Plan Admission Admit Date/Time: 02/17/25 15:15 Primary Reason for Your Visit: Debiity due to L THR Attending Provider: Asia Dodd Primary Care Provider: Kerwin Hugo Instructions Patient Instructions: DVT Complications, Understanding Oxygen Therapy, What Are Snoring and Sleep Apnea?, Caring for Your Incision, Benign Prostatic Hyperplasia, ED Sleep Apnea, Obstructive Additional Instructions / Restrictions: 1. You have a urinary tract infection. We sent a culture but, the results will not be back for 24-48 hours after you leave rehab. I am discharging you on an antibiotic called Cefadroxil which you will take twice a day. If the culture shows a bacteria that is resistant to this antibiotic then we will need to change the antibiotic. I will call Rahul IF we need to change the antibiotic. 2. You have a blood clot in the calf of the left leg. Generally these do not cause pulmonary emboli (PE) of any significance because the veins distal to the knee are small. We are going to keep you on the prophylactic dose of Eliquis (a blood thinner) for now. There is a chance that the clot will propagate and get bigger and extend into the thigh ans this would mean you would need a higher dose of the Eliquis. I am giving you a requisition to have another venous ultra sound of the legs in 1 week. You should call me OR Dr. Hugo 1 day after the test to go over the results with you and make a decision about whether or not the dose of the Eliquis needs to be increased from 2.5 mg to 5 mg. If you have chest pain, shortness of breath, racing heart, dizziness, increasing calf or thigh pain or if you pass put then call 911 and get to an emergency room because these are symptoms of a blood clot to the lung and this can be fatal. 3. Your oxygen drops at night when you are sleeping. You may have sleep apnea. When the oxygen drops you can have problems with the rhythm of the heart. If you decide you would like to be evaluated for sleep apnea you will need a overnight sleep study. You have been refusing to wear the oxygen at night while on rehab so I am not sending you home with a prescription for oxygen because you would have to pay for it and it is expensive, claire if you are not going to wear it. I have give you some literature to read about sleep apnea and all the things it can cause in addition to problems with the rhythm of the heart. 4. You have chronic kidney disease. The CT scan of the abdomen showed the R kidney is severely atrophic......it likely is not very functional. Glipizide is excreted through the kidney and in people with chronic kidney disease this drug can accumulate due to to poor excretion from the kidneys and lead to low blood sugars. We have changed this medication to Amaryl (glimepiride) which is a diabetic drug that is excreted through the liver. This is a safer drug for you. While you were in the hospital you had acute on chronic kidney failure and your creatinine (a test of kidney function) went up to 2.2. This has resolved and your creatinine has been stable at 1.34 - 1.47 the last week on rehab. This is consistent with stage III (moderate) chronic renal failure. You may need to follow up with a textiles and clothing teacher (kidney doctor) in the future. Make sure to maintain good hydration. 5. The CT scan of the abdomen also showed your prostate is enlarged. You had urine retention in the hospital and had to have a catheter inserted to drain the bladder. We started you on a drug for the prostate called Flomax (also called tamsulosin) and we were able to get the catheter out. I recommend you continue to take this drug. 6. You are mildly anemic due to blood loss related to surgery. The blood count is stable at discharge from rehab. Your HGB (hemoglobin) is 10.4 at discharge. It was 15.8 prior to surgery. 7. You have many medical problems Jeremiah. You should be seeing your PCP at least every 3 months. 8. If you have any questions after leaving rehab please do not hesitate to call me. OFFICE: [phone] CELL: [phone] NURSES STATION ON REHAB: [phone] Discharge Orders/Prescriptions Prescriptions: New glimepiride 1 mg Tablet 3 mg PO BREAKFAST Qty: 90 0RF Rx Instructions: 3 tabs each morning lisinopril 5 mg Tablet 5 mg PO DAILY Qty: 30 0RF oxycodone 5 mg Tablet 5 mg PO Q6H PRN PRN (Reason: Pain Score 4-10) 7 Days Qty: 15 0RF cefadroxil 500 mg capsule 500 mg PO BID Qty: 14 0RF Eliquis 2.5 mg tablet 2.5 mg PO BID Qty: 60 0RF Rx Instructions: 1 ab every 12 H Continued acetaminophen 500 mg tablet 1,000 mg PO Q6H Qty: 100 0RF tamsulosin 0.4 mg Capsule 0.4 mg PO DAILY@0830 Qty: 30 0RF cholecalciferol (vitamin D3) [Vitamin D3] 25 mcg (1,000 unit) tablet 25 mcg PO DAILY magnesium 250 mg tablet 750 mg PO DAILY pantoprazole 40 mg Tablet,Delayed Release (Dr/Ec) 40 mg PO BID Qty: 0 0RF Discontinued oxycodone 5 mg tablet 5 - 10 mg PO Q4H PRN (Reason: pain) Rx Instructions: 5mg pain 3-5 10mg pain 6-10 vitamin K2 100 mcg capsule 100 mcg PO DAILY Eliquis 2.5 mg tablet 2.5 mg PO BID Qty: 66 0RF gabapentin 300 mg capsule 300 mg PO TID Qty: 90 0RF sennosides-docusate sodium [Stimulant Laxative Plus] 8.6-50 mg Tablet 2 tab PO BID Qty: 0 0RF Other Ambulatory Orders: Venous Duplex US - Jose Luis Extrem (Routine) Facility: [facility] [place] - Location: [facility] Ordered By: Dr. Asia Dodd Referrals / Follow Up: Kerwin Hugo [Other] - 03/08/25 9:10 am Venous Duplex Ultrasound [Other] - 03/09/25 10:00 am Rasheed Galindo DO [Med Staff - Active Staff] - 03/27/25 10:00 am () Disposition Disposition (needs filled in before D/C Order can be placed): Home Health Service
--- NOTE | 2025-02-27 14:15 | CASEMGMT ---
Social Work IDT informed this worker that pt is requesting to DC 02/28. IDT agreeble. SW phoned nephew to inquire about DC. Nephew agreeable, but stated he is working until evening tomorrow and won't be able to pickling operator at until dinnertime. SW confirmed. SW relayed OT recommending bed rail and leg field coil winder and nephew can purchase. Pt has no other DME needs. SW inquired about skilled HHC vs OP therapy. Nephew prefers HHC d/t transportation barrier. SW offered list of skilled HHC agencies within geographical area, [place] with insurance, that include quality and resource data via [employer] guide. Nephew denied as he is not able to visit pt to get printed list, and does not have use of technology. SW educated to [facility] as they accept [facility] - private pay and are well-known in their community. Nephew agreed to the referral. Nephew stated he will call pt shortly to discuss DC. - SW placed referral to [facility] via [employer] for PT. Plan: DC home 02/28, [facility] PT Radha Vilchis MSW PHOTOGRAPHIC HAND DEVELOPER
[2025-02-27 17:07] LABS: Mucous, Urine 0 SEEN /hpf (<or=2+)
[2025-02-27 17:27] LABS: Color, Urine Straw (Yellow); Glucose, Dipstick Normal (Normal); Ketone-Dipstick Negative (Negative); Leukocyte Esterase-Dipstick 500 /ul (Negative); Nitrite-Dipstick Negative (Negative); Occult Blood-Urine 150 /ul (Negative); Protein-Dipstick 30 mg/dl (Negative); Specific Gravity, Urine 1.010 (1.002-1.030); Urine Bilirubin Dipstick Negative (Negative)
[2025-02-27 17:58] LABS: Red Blood Cells-Urine 0-5 SEEN /hpf (0-5); Squamous Epithelial Cells - UA 0-5 SEEN /hpf (0-5)
[2025-02-27] MEDS: APIXABAN 5 MG TABLET PO (22:31)
[2025-02-28 06:22] VITALS: BP 144/65; PULSE 97; RESP 16; TEMP 37.4; O2SAT 96
[2025-02-28 06:23] VITALS: BP 141/65; PULSE 97; RESP 16; TEMP 37.4; O2SAT 96
--- NOTE | 2025-02-28 07:44 | PCM.PN.ORT ---
Subjective Subjective Patient seen and examined. Pain controlled. Says he does not have pain when he is sitting or when he is ambulating it is just the transition that is difficult. No complaints or concerns Objective Data Objective Data Vital Signs: Vital Signs Temp Pulse Resp BP Pulse Ox O2 Del Method O2 Flow Rate 99.3 F H 97 16 141/65 H 96 Room Air 2 02/28/25 06:23 02/28/25 06:23 02/28/25 06:23 02/28/25 06:23 02/28/25 06:23 02/28/25 06:23 02/20/25 01:00 FiO2 21 02/28/25 07:15 Oxygen Flow Rate (L/min) 2 Oxygen Delivery Method Room Air Weight: 284 lb 2.813 oz Body Mass Index (BMI) 39.6 Intake & Output: Intake and Output for Last 24 Hours 02/26/25 02/27/25 02/28/25 23:59 23:59 23:59 Intake Total 825 / 825 1620 / 1620 450 / 450 Output Total 1300 / 1300 1550 / 1770 895 / 895 Balance -475 / -475 70 / -150 -445 / -445 Lab / Micro Data 02/27/25 09:54 02/27/25 05:15 Labs: Laboratory Results - last 24 hr 02/27/25 09:54: WBC 15.3 H, RBC 3.35 L, Hgb 10.4 L, Hct 31.6 L, MCV 94.3 H, MCH 31.0, MCHC 32.9, RDW Std Deviation 46.3 H, RDW Coeff of Sherry 13.4, Plt Count 406, MPV 8.9, Immature Gran % (Auto) 1.000 H, Neut % (Auto) 83.2 H, Lymph % (Auto) 7.5 L, Fisher % (Auto) 6.9, Eos % (Auto) 0.9, Baso % (Auto) 0.5, Absolute Neuts (auto) 12.7 H, Absolute Lymphs (auto) 1.15, Nucleated RBC % 0 02/27/25 11:44: POC Glucose 144 H 02/27/25 16:40: POC Glucose 145 H 02/27/25 17:00: Urine Color Straw, Urine Clarity Cloudy, Urine pH 6.0, Ur Specific [place] 1.010, Urine Protein 30 H, Urine Glucose (UA) Normal, Urine Ketones Negative, Urine Occult Blood 150 H, Urine Nitrite Negative, Urine Bilirubin Negative, Urine Urobilinogen Normal, Ur Leukocyte Esterase 500 H, Urine RBC 0-5 SEEN, Urine WBC >100 SEEN, Ur Squamous Epith Cells 0-5 SEEN, Urine Bacteria 1+, Urine Mucus 0 SEEN 02/27/25 22:19: POC Glucose 202 H 02/28/25 06:22: POC Glucose 137 H Micro: Microbiology 02/17/25 16:58 Nasal Secretion SARS-CoV-2 Antigen (Rapid) - Final Social Homelessness:: Sheltered Physical Exam Const alert, oriented x3 and no apparent distress Extremity Extremity Narrative: Left hip incisions well-approximated no signs of infection Neurovascular intact left lower extremity he does have swelling in his left leg below his knee no significant calf tenderness negative Homans neurovascular intact EHL tibialis anterior gastrocsoleus intact station light touch palpable pedal pulse. 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 Reminded the patient to elevate his legs to minimize swelling Will try to fit a knee-high stocking to help with swelling Javier to be removed today Follow-up in the office 4 weeks
[2025-02-28] MEDS: Magnesium Chloride 64 MG Delay Rel.Tablet 128 MG PO (07:57)
[2025-02-28] MEDS: APIXABAN 5 MG TABLET PO (07:57)
[2025-02-28] MEDS: Cholecalciferol (VIT D3) 25 MCG TABLET (1,000 UNITS) PO (07:57)
--- NOTE | 2025-02-28 10:22 | CASEMGMT ---
Social Work SW spoke with DR and pt has abnormal overnight trending pulse ox and a DVT, but pt is still adamant about discharging home. SW spoke with bedside to finalize DC plans. SW informed pt has abnormal overnight O2 results, but pt denied wanting O2. Pt is private pay and will not provide payment if this worker ordered O2 out of need. - SW left with [employer] [facility] to follow up on referral. Radha Vilchis [employer]
--- NOTE | 2025-02-28 11:46 | NURSING ---
20 milagros removed. no s/s. no drainage noted. pt tolerated well.
--- NOTE | 2025-02-28 11:47 | NURSING ---
pt refused to have jaylin hose applied. pt educated on the benefits and need of jaylin hose use and that Dr Fields ordered for him to use them. pt voiced understanding but still refused
--- NOTE | 2025-02-28 14:01 | DS.PCM_ITS ---
Providers Date of Admission: 02/17/25 Date of Discharge: 02/28/25 Primary Care Physician: PRISCILLA Almanzar Reason For Visit: LEFT HIP FRACTURE Diagnosis Discharge Diagnosis (1) Status post left hip replacement: Status: Acute Code(s): Z96.642 - Presence of left artificial hip joint Plan: Dr. Galindo-02/14/2025 (2) Physical debility: Status: Acute Code(s): R53.81 - Other malaise (3) Acute blood loss as cause of postoperative anemia: Status: Acute Code(s): D62 - Acute posthemorrhagic anemia Plan: Hemoglobin at discharge is stable at 10.4. (4) Acute renal failure superimposed on stage 3 chronic kidney disease: Status: Resolved Code(s): N17.9 - Acute kidney failure, unspecified; N18.30 - Chronic kidney disease, stage 3 unspecified Qualifiers: Acute renal failure type: unspecified Chronic kidney disease stage 3 subtype: stage 3b (GFR 30-44) Qualified Code(s): N17.9 - Acute kidney failure, unspecified; N18.32 - Chronic kidney disease, stage 3b Plan: Likely due to dehydration and IV contrast. Creat at DC from rehab is 1.47 (5) Urine retention: Status: Acute Code(s): R33.9 - Retention of urine, unspecified Plan: Resolved with addition of Flomax to drug regimen (6) UTI (urinary tract infection) due to urinary indwelling Tsang catheter: Status: Acute Code(s): T83.511A - Infection and inflammatory reaction due to indwelling urethral catheter, initial encounter; N39.0 - Urinary tract infection, site not specified Qualifiers: Indwelling urinary catheter type: indwelling urethral catheter E ncounter type: initial encounter Qualified Code(s): T83.511A - Infection and inflammatory reaction due to indwelling urethral catheter, initial encounter; N39.0 - Urinary tract infection, site not specified Plan: Urine culture still pending at the time of DC from rehab. Tsang has been discontinued prior to DC. (7) DVT of lower limb, acute: Status: Acute Code(s): I82.409 - Acute embolism and thrombosis of unspecified deep veins of unspecified lower extremity Qualifiers: Affected thrombotic vein of extremity: calf muscle vein Laterality: l eft Qualified Code(s): I82.462 - Acute embolism and thrombosis of left calf muscular vein Plan: Left gastrocnemius vein. He will continue Eliquis 2.5 mg twice daily and have a repeat venous ultrasound of both lower extremities in 1 week. If there is no propagation would continue Eliquis at 2.5 mg twice daily. If there is propagation then he will need 5 mg twice daily for 3 months. (8) Superficial vein thrombosis: Status: Acute Code(s): I82.890 - Acute embolism and thrombosis of other specified veins Plan: Right great saphenous vein in the calf. (9) Orthostatic hypotension: Status: Resolved Code(s): I95.1 - Orthostatic hypotension Plan: Secondary to intravascular volume depletion. Resolved with increased fluid intake. (10) Sleep-disordered breathing: Status: Chronic Code(s): G47.30 - Sleep apnea, unspecified Plan: Overnight trending pulse ox has been abnormal x 2. Multiple desaturations lasting greater than 60 seconds while sleeping. Refused to wear oxygen most of the time he was on rehab. Literature was given to him on what obstructive sleep apnea is and the possible complications. If he desires could proceed with a formal sleep study. He would not give me an answer on this when we talked on the day of DC . (11) Dehydration: Status: Resolved Code(s): E86.0 - Dehydration Plan: Has to be reminded to maintain good fluid intake. (12) Chronic renal failure (CRF), stage 3b: Status: Chronic Code(s): N18.32 - Chronic kidney disease, stage 3b (13) BPH (benign prostatic hyperplasia): Status: Suspected Code(s): N40.0 - Benign prostatic hyperplasia without lower urinary tract symptoms Qualifiers: Lower urinary tract symptom presence: symptoms present Lower urinary tract symptom detail: urinary retention Qualified Code(s): N40.1 - Benign prostatic hyperplasia with lower urinary tract symptoms; R33.8 - Other retention of urine Plan: Prostate is enlarged on CT scan of the abdomen. He was given a prescription for Flomax at discharge from rehab. (14) Diabetes mellitus, type 2: Status: Chronic Code(s): E11.9 - Type 2 diabetes mellitus without complications Qualifiers: Diabetes mellitus skilled nursing insulin use: without emt intermediate use Diabetes mellitus complication status: with kidney complications Diabetes mellitus complication detail: with chronic kidney disease Chronic kidney disease stage: stage 3 (moderate) Chronic kidney disease stage 3 subtype: stage 3b (GFR 30-44) Qualified Code(s): E11.22 - Type 2 diabetes mellitus with diabetic chronic kidney disease; N18.32 - Chronic kidney disease, stage 3b Plan: Because he had acute on chronic renal failure and a severely atrophic R kidney glipizide was discontinued as it is renally excreted. He was transitioned to Amaryl because it is excreted by the liver. There is last risk of hypoglycemia in patients with chronic renal failure on Amaryl. At the time of discharge she is taking 3 mg of Amaryl in the AM. Blood sugars are all under 200. No hypoglycemia. (15) Renal atrophy, right: Status: Chronic Code(s): N26.1 - Atrophy of kidney (terminal) Plan: Severe (16) Diverticulosis: Status: Chronic Code(s): K57.90 - Diverticulosis of intestine, part unspecified, without perforation or abscess without bleeding Medications at Discharge Home Medications cholecalciferol (vitamin D3) 25 mcg (1,000 unit) tablet (Vitamin D3) 25 mcg PO DAILY SUPPLEMENT 02/07/25 magnesium 250 mg tablet 750 mg PO DAILY SUPPLEMENT 02/07/25 pantoprazole 40 mg tablet,delayed release 40 mg PO BID GERD #0 tabs 02/17/25 acetaminophen 500 mg tablet 1,000 mg (2 x 500 mg) PO Q6H pain #100 tabs 02/27/25 glimepiride 1 mg tablet 3 mg (3 x 1 mg) PO BREAKFAST #90 tabs 02/27/25 lisinopril 5 mg tablet 5 mg PO DAILY #30 tabs 02/27/25 oxycodone 5 mg tablet 5 mg PO Q6H PRN PRN Pain Score 4-10 1 week #15 tabs 02/27/25 tamsulosin 0.4 mg capsule 0.4 mg PO DAILY@0830 Urine retention #30 caps 02/27/25 apixaban 2.5 mg tablet (Eliquis) 2.5 mg PO BID #60 tabs 02/28/25 cefadroxil 500 mg capsule 500 mg PO BID #14 caps 02/28/25 Hospital Course Operations - (Left total hip replacement by Dr. Galindo on 02/14/2025.) Procedures - (Venous ultrasound of the lower extremities on 02/27/2025.) Summary of Care Provided Minutes Spent on Discharge: 35 Hospital Course: JEREMIAH VILLA, is a 79 M with a PMH of DM II, morbid obesity, suspected BPH, osteoarthritis, chronic renal failure (creat on preop labs was 1.59 with a GFR of 44 which is consistent with stage III 3B chronic renal failure), tobacco dependence in remission and a PE after L hip replacement in the past who underwent a right total hip replacement by Dr. Galindo on 02/14/2025. Post operatively he was somnolent and unarousable. ABG showed a pH of 7.15 with a PCO2 of 84 and a PO2 of 94 on BiPAP (later transitioned to AVAPS). Chest x-ray showed a right upper lobe infiltrate. He was given Lasix in PACU. After about an hour on AVAPS he became arousable and the ABG showed pH of 7.27 with a PCO2 of 60 and a pO2 of 83. He was transferred to the intensive care unit. He was started on Unasyn for suspected aspiration PNA. At some point he was reported to have had a coffee ground emesis. A CT scan of the abdomen with contrast was done and showed a right perihilar/right lower lobe multifocal pulmonary airspace disease/consolidation likely representing pneumonia, chronic right renal atrophy, cholelithiasis without evidence of acute cholecystitis, small sliding hiatal hernia, colonic diverticulosis with no evidence of diverticulitis, mild prostatomegaly and moderate diffuse spondylosis. There was no evidence of active bleeding. Consult was ordered with GI. An EGD was done on 02/15/2025 and showed grade C erosive esophagitis with no bleeding. There were no gross lesions in the entire stomach and no gross lesions in the entire examined duodenum. CT scan of the abdomen showed There was evidence of old blood in the nasopharynx and oropharynx. Creatinine on 02/16/2025 had risen to 2.2 and this was thought to be secondary to intravascular volume depletion and IV contrast. He was hydrated and the creatinine came down to 1.92 on 02/17/2025. He has been retaining urine in the hospital. Tsang catheter was removed but, PVR on 02/17/25 was 523 and the Tsang was re-inserted. He was started on Flomax. He takes an herbal prostate supplement at home and denies slow stream and dribbling. He was transferred to the acute inpatient rehab unit at [facility] on 02/17/2025 for 3 hours of therapy daily to restore function/independence at or near his level prior to the recent hip replacement. He lives alone in a one- story house with a basement. He normally ambulates with a rollator walker. He is independent with his activities of daily living. Jeremiah was retaining urine at presentation to acute inpatient rehab. Tsang catheter was inserted and he was started on Flomax 0.4 mg daily. After 6 doses the catheter was removed for a voiding trial and the most recent postvoid residuals are 21 and 77. Overnight trending pulse ox at admission to rehab was abnormal with 3 desaturations below 88% lasting greater than 60 seconds. He was placed on supplemental oxygen when sleeping but is often noncompliant with this. The overnight trending pulse ox was repeated on February 28, 2025 and it showed 6 desaturations below 88 lasting for greater than 60 seconds with a kelly of 72%. The longest episode of desaturation was 2 minutes and 38 seconds. I discussed the results of the overnight trending pulse ox with Jeremiah and he informed me that he does not want to wear oxygen. He was given literature explaining what obstructive sleep apnea is and the possible complications. If he changes in his mind in the future we could proceed with a formal overnight sleep study. Creatinine peaked at 2.2 while in the hospital. He has been taking glipizide 5 mg twice daily as an outpatient and his creatinine on preop labs was 1.59. He chronically is IV depleted because he does not want to get up to use the RR. Since glipizide is excreted renally this was discontinued and he was transitioned to glimepiride 3 mg every morning. Glimepiride is excreted through the liver and there is less chance of hypoglycemia with this medication rather than glipizide. Lisinopril was discontinued on the acute side of the hospital postoperatively due to acute on chronic renal failure. Blood pressures were initially high on rehab and the creatinine had improved so lisinopril 5 mg daily was restarted. At the time of discharge his potassium is 4.6 and the BUN is 31 with a stable creatinine of 1.47. He developed a low grade fever in the evening on 02/26/2025. Resting heart rate was increased and the blood pressure was low with positive orthostatics. He had no cough and denied dysuria. UA was done and revealed greater than 100 WBCs per high-power field. He was empirically started on an antibiotic and a urine culture is pending at the time of his discharge. CBC on 02/27/2025 showed a leukocytosis with left shift. He has had lower extremity edema since arrival on rehab and has repeatedly told me that his legs do not swell at home but I do not believe this. He sits with them dependent most of the day. Lower extremity venous ultrasounds were obtained and he had a DVT in the left gastrocnemius vein and a superficial thrombosis in the right great saphenous vein distal to the knee. He has been taking Eliquis 2.5 mg twice daily. It is not known at the time of discharge whether this DVT developed while on Eliquis or if he actually had it prior to admission for surgery. We are discharging him on 2.5 mg of Eliquis twice daily and have ordered a repeat bilateral lower extremity ultrasound for 1 week. If the clot remains only in the calf vein would continue 2.5 mg twice daily but if it propagates at all he will need to be increased to 5 mg twice daily of Eliquis for total of 3 months. He denies shortness of breath on the date of discharge. Orthostatic hypotension and tachycardia resolved with hydration. Results of the urine culture still pending at the time of discharge. He is being discharged on cefadroxil 500 mg twice daily. If the urine culture shows resistance to this antibiotic I will call his nephew Rahul and change the antibiotic. He has only intermittently been cooperative with therapy and he decides when he has had enough. At the time of discharge he is ambulating 200 feet with a 4 wheeled walker at contact-guard assist. He is able to do ten 4 inch and 6 inch steps with bilateral upper extremity support. He is independent with eating and he is supervision/set up for grooming. He requires minimal assistance with bathing and he is supervision/set up with upper body dressing but is still requiring moderate assistance for lower body dressing. He is contact-guard assist for toilet transfer and requires assistance for hygiene. Has been incontinent of urine. He is contact-guard assist for tub/shower transfer. He declined to use adaptive equipment for lower body dressing to improve his independence and tells us that he will have help with all of these tasks at home. Help will not be available 23/03. He has an appointment scheduled with his PCP, Dr. Kerwin Hugo, for March 08 at 10 AM. He has an appointment to obtain a bilateral lower extremity venous ultrasound on 03/09/2025 at [address] [facility]. He will follow-up with Dr. Galindo on 03/27/2025 at 10 AM. The symptoms of a pulmonary embolus were reviewed with Jeremiah prior to discharge and he was instructed to call 911 and get to an ER if he has any of the symptoms. 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 Physical Exam Const alert, oriented x3 and no apparent distress Constitutional Narrative: Resists getting a shower, even after incontinence. General Appearance: cooperative HEENT HEENT Narrative: Dry MM. No evidence of thrush Eyes PERRL, EOMs intact bilaterally, conjunctivae normal and no scleral icterus Eyes Narrative: No discharge from the eyes and no mattering of the eyelashes. No visual field cuts. No nystagmus. Smooth pursuit. Neck supple, No nodes and no carotid bruits General: trachea midline Chest Chest: symmetrical chest wall rise Resp Resp Narrative: Some coarse crackles in the mid upper right lung posteriorly. No wheezing. Not tachypneic. No conversational dyspnea. Crackles cleared after few deep breaths. Effort and Inspection: able to speak in complete sentences Cardio regular rhythm, no murmurs, no rub and no gallops Cardio Narrative: Increased resting heart rate. No ectopy. GI GI Narrative: Obese, soft, ND, normal BS's, no guarding with palpation. no CVA tenderness Bladder / Kidney Exam: catheter in place urethral (urine in the Tsang bag is dark alber. ) Extremity no calf tenderness Extremity Narrative: Lower extremity edema has improved significantly with compression. Skin Skin Narrative: The incisions are intact with no dehiscence, no pavithra-incisional erythema and no discharge. Neuro oriented x3, CN's II-XII intact bilaterally, moves all extremities and no focal motor deficits Psych mental status grossly normal, thought process normal and speech normal; Negative for denies hallucinations, denies homicidal ideation or denies suicidal ideation Psych Narrative: Only cooperative sometimes. Appearance: grossly normal Attitude: calm, engaged and other Uncooperative and belligerent at times. Activity / Motor Behavior: appropriate eye contact Medical Records Data Homelessness:: Sheltered Weight / BMI Weight Weight: 284 lb 2.813 oz Body Mass Index (BMI) 39.6 ABG / Lab / Microbiology Data 02/27/25 09:54 02/27/25 05:15 Laboratory: Laboratory Results - last 24 hr 02/27/25 16:40: POC Glucose 145 H 02/27/25 17:00: Urine Color Straw, Urine Clarity Cloudy, Urine pH 6.0, Ur Specific Mobile 1.010, Urine Protein 30 H, Urine Glucose (UA) Normal, Urine Ketones Negative, Urine Occult Blood 150 H, Urine Nitrite Negative, Urine Bilirubin Negative, Urine Urobilinogen Normal, Ur Leukocyte Esterase 500 H, Urine RBC 0-5 SEEN, Urine WBC >100 SEEN, Ur Squamous Epith Cells 0-5 SEEN, Urine Bacteria 1+, Urine Mucus 0 SEEN 02/27/25 22:19: POC Glucose 202 H 02/28/25 06:22: POC Glucose 137 H 02/28/25 11:05: POC Glucose 129 H Microbiology: Microbiology 02/17/25 16:58 Nasal Secretion SARS-CoV-2 Antigen (Rapid) - Final Radiography Diagnostic Testing: Radiology Impression Venous Doppler Study 02/27/25 10:51 Interpretation Summary Acute deep vein thrombosis noted in the left gastrocnemius vein. Acute superficial vein thrombosis noted in the right great saphenous vein below the knee. Ordering Physician: Asia Dodd Referring Physician: Kerwin Hugo Performed By: Jessica Rm, ALEKSANDER, RVT D/C Instructions Discharge Diet: Carb Control Diet and - (Low salt, low fat) Weight Bearing Status: Full weight bearing Keep extremity elevated above heart level: Legs Call your doctor if your incision/area has: Continuous Slow Oozing, Sudden Increased Bleeding, Increased Pain/ Swelling, Increased Redness and Foul Smelling Discharge Call your doctor if you observe: Fever of 101 or Higher, Inability to urinate, Inability to have a bowel movement, Shortness of breath, Dizziness, Fainting spells, Swelling in the ankles, Chest pain, Increased palpitations (irregular heartbeat), Calf discomfort and Uncontrolled pain Suture Line Care: Avoid Pulling/Pushing and Avoid Pinching/Bending Cleanse incision/area with: Soap & Water DC O2, CPAP, BIPAP Needs Home O2 Discharge instructions: No Pending Tests Upon Discharge: none Please Follow Up With: Kerwin Hugo PA When: 7-10 days from DC. Meaningful Use Info Meaningful Use Meaningful Use Diagnoses (Choose all that apply): None applicable Ischemic Stroke Statin Dosing Therapy Reference: STATIN DOSE THERAPY REFERENCE: * Patients > 75 years receive moderate or high dose statin therapy. * Patients 75 years or YOUNGER should receive HIGH intensity statin dose unless contraindicated. You will be required to document reason for non-treatment if statin daily dose does not meet guidelines. HIGH DOSE STATIN THERAPY DAILY Atorvastatin > than or = to 40 mg Rosuvastatin > than or = to 20 mg Amlodipine + Atorvastatin > than or = to 2.5/40 mg Ezetimibe + Simvastatin 10/80 mg Simvastatin 80mg Discharge Plan Admission Admit Date/Time: 02/17/25 15:15 Primary Reason for Your Visit: Debiity due to L THR Attending Provider: Asia Dodd Primary Care Provider: Kerwin Hugo Instructions Patient Instructions: DVT Complications, Understanding Oxygen Therapy, What Are Snoring and Sleep Apnea?, Caring for Your Incision, Benign Prostatic Hyperplasia, ED Sleep Apnea, Obstructive Additional Instructions / Restrictions: 1. You have a urinary tract infection. We sent a culture but, the results will not be back for 24-48 hours after you leave rehab. I am discharging you on an antibiotic called Cefadroxil which you will take twice a day. If the culture shows a bacteria that is resistant to this antibiotic then we will need to change the antibiotic. I will call Rahul IF we need to change the antibiotic. 2. You have a blood clot in the calf of the left leg. Generally these do not cause pulmonary emboli (PE) of any significance because the veins distal to the knee are small. We are going to keep you on the prophylactic dose of Eliquis (a blood thinner) for now. There is a chance that the clot will propagate and get bigger and extend into the thigh ans this would mean you would need a higher dose of the Eliquis. I am giving you a requisition to have another venous ultra sound of the legs in 1 week. You should call me OR Dr. Hugo 1 day after the test to go over the results with you and make a decision about whether or not the dose of the Eliquis needs to be increased from 2.5 mg to 5 mg. If you have chest pain, shortness of breath, racing heart, dizziness, increasing calf or thigh pain or if you pass put then call 911 and get to an emergency room because these are symptoms of a blood clot to the lung and this can be fatal. 3. Your oxygen drops at night when you are sleeping. You may have sleep apnea. When the oxygen drops you can have problems with the rhythm of the heart. If you decide you would like to be evaluated for sleep apnea you will need a overnight sleep study. You have been refusing to wear the oxygen at night while on rehab so I am not sending you home with a prescription for oxygen because you would have to pay for it and it is expensive, claire if you are not going to wear it. I have give you some literature to read about sleep apnea and all the things it can cause in addition to problems with the rhythm of the heart. 4. You have chronic kidney disease. The CT scan of the abdomen showed the R kidney is severely atrophic......it likely is not very functional. Glipizide is excreted through the kidney and in people with chronic kidney disease this drug can accumulate due to to poor excretion from the kidneys and lead to low blood sugars. We have changed this medication to Amaryl (glimepiride) which is a diabetic drug that is excreted through the liver. This is a safer drug for you. While you were in the hospital you had acute on chronic kidney failure and your creatinine (a test of kidney function) went up to 2.2. This has resolved and your creatinine has been stable at 1.34 - 1.47 the last week on rehab. This is consistent with stage III (moderate) chronic renal failure. You may need to follow up with a account planner (kidney doctor) in the future. Make sure to maintain good hydration. 5. The CT scan of the abdomen also showed your prostate is enlarged. You had urine retention in the hospital and had to have a catheter inserted to drain the bladder. We started you on a drug for the prostate called Flomax (also called tamsulosin) and we were able to get the catheter out. I recommend you continue to take this drug. 6. You are mildly anemic due to blood loss related to surgery. The blood count is stable at discharge from rehab. Your HGB (hemoglobin) is 10.4 at discharge. It was 15.8 prior to surgery. 7. You have many medical problems Jeremiah. You should be seeing your PCP at least every 3 months. 8. If you have any questions after leaving rehab please do not hesitate to call me. OFFICE: [phone] CELL: [phone] NURSES STATION ON REHAB: [phone] Discharge Orders/Prescriptions Prescriptions: New glimepiride 1 mg Tablet 3 mg PO BREAKFAST Qty: 90 0RF Rx Instructions: 3 tabs each morning lisinopril 5 mg Tablet 5 mg PO DAILY Qty: 30 0RF oxycodone 5 mg Tablet 5 mg PO Q6H PRN PRN (Reason: Pain Score 4-10) 7 Days Qty: 15 0RF cefadroxil 500 mg capsule 500 mg PO BID Qty: 14 0RF Eliquis 2.5 mg tablet 2.5 mg PO BID Qty: 60 0RF Rx Instructions: 1 ab every 12 H Continued acetaminophen 500 mg tablet 1,000 mg PO Q6H Qty: 100 0RF tamsulosin 0.4 mg Capsule 0.4 mg PO DAILY@0830 Qty: 30 0RF cholecalciferol (vitamin D3) [Vitamin D3] 25 mcg (1,000 unit) tablet 25 mcg PO DAILY magnesium 250 mg tablet 750 mg PO DAILY pantoprazole 40 mg Tablet,Delayed Release (Dr/Ec) 40 mg PO BID Qty: 0 0RF Discontinued oxycodone 5 mg tablet 5 - 10 mg PO Q4H PRN (Reason: pain) Rx Instructions: 5mg pain 3-5 10mg pain 6-10 vitamin K2 100 mcg capsule 100 mcg PO DAILY Eliquis 2.5 mg tablet 2.5 mg PO BID Qty: 66 0RF gabapentin 300 mg capsule 300 mg PO TID Qty: 90 0RF sennosides-docusate sodium [Stimulant Laxative Plus] 8.6-50 mg Tablet 2 tab PO BID Qty: 0 0RF Other Ambulatory Orders: Venous Duplex US - Jose Luis Extrem (Routine) Facility: [facility] - Location: [facility] Ordered By: Dr. Asia Dodd Referrals / Follow Up: Kerwin Hugo [Other] - 03/08/25 9:10 am Venous Duplex Ultrasound [Other] - 03/09/25 10:00 am Rasheed Galindo DO [Med Staff - Active Staff] - 03/27/25 10:00 am () Disposition Disposition (needs filled in before D/C Order can be placed): Home Health Service Charges/Coding Visit Charges Inpatient E&M: 42457 Disch Hosp >30min
[2025-02-28 18:29] VITALS: BP 130/70; PULSE 88; RESP 17; TEMP 36.6; O2SAT 98
--- NOTE | 2025-02-28 18:31 | NURSING ---
discharged home with family. discharge instruction, medications and appointments reviewed with pt and family. denies questions or concerns
--- NOTE | 2025-03-01 12:34 | CASEMGMT ---
Addendum entered by Radha Vilchis 03/01/25 12:54: [facility] phoned this worker able to accept pt. JAD explained the UTI/ATB situation. [facility] can assist with getting pt the needed ATB after the sensitivity results are received tomorrow. SOC for RN can be 03/02, PT is 03/06. JDA sent order and will notify [facility] once results are given for ATB. JAD updated Original Note: Social Work spoke with this worker about possible need to change pt's ATB for UTI, and left several messages for nephew. requested this worker contact the [facility] agency to inquire about SN and following for ATB med change. JAD phoned [facility], spoke with Lillie. Lillie acknowledged referral and previous messages from this worker, though confirmed pt's address with this worker and cannot service pt's location. JAD requested [facility] notify this worker in the future with denials. - JAD returned to [facility] and referred to 22 agencies listed to inquire about acceptance for PT and SN with pt's private pay/[employer] insurance. Will continue to follow. Radha Vilchis MSW STERILE PROCESS COORDINATOR
--- NOTE | 2025-03-02 09:00 | CASEMGMT ---
Social Work Per physician, pt now needs a new antibiotic which has been called into [facility]. SW contacted [facility] who states a nurse will be visiting the pt within the hour and will make sure prescription is picked up and started today. MARGIE Miles
== END 2025-02-28 18:32 | disposition home health service (06) | DRG 559 ==
PROVIDERS: Admitting Provider Internal Medicine; PCP Physician Assistant; Referring Provider Internal Medicine; Visit Provider Internal Medicine
DX: Z47.1 Aftercare following joint replacement surgery (principal); J69.0 Pneumonitis due to inhalation of food and vomit; D62 Acute posthemorrhagic anemia; I82.811 Embolism and thrombosis of superficial veins of right lower extremity; N39.0 Urinary tract infection, site not specified; I82.462 Acute embolism and thrombosis of left calf muscular vein; B96.5 Pseudomonas (aeruginosa) (mallei) (pseudomallei) as the cause of diseases classified elsewhere; E66.01 Morbid (severe) obesity due to excess calories; N18.32 Chronic kidney disease, stage 3b; E11.22 Type 2 diabetes mellitus with diabetic chronic kidney disease; I12.9 Hypertensive chronic kidney disease with stage 1 through stage 4 chronic kidney disease, or unspecified chronic kidney disease; K21.00 Gastro-esophageal reflux disease with esophagitis, without bleeding; K80.20 Calculus of gallbladder without cholecystitis without obstruction; K44.9 Diaphragmatic hernia without obstruction or gangrene; G47.33 Obstructive sleep apnea (adult) (pediatric); I95.1 Orthostatic hypotension; E78.00 Pure hypercholesterolemia, unspecified; M16.31 Unilateral osteoarthritis resulting from hip dysplasia, right hip; F17.220 Nicotine dependence, chewing tobacco, uncomplicated; T83.511A Infection and inflammatory reaction due to indwelling urethral catheter, initial encounter; K57.90 Diverticulosis of intestine, part unspecified, without perforation or abscess without bleeding; R33.8 Other retention of urine; Z86.711 Personal history of pulmonary embolism; N40.1 Benign prostatic hyperplasia with lower urinary tract symptoms; Z96.641 Presence of right artificial hip joint; Z68.39 Body mass index [BMI] 39.0-39.9, adult; Z79.899 Other long term (current) drug therapy; N26.1 Atrophy of kidney (terminal)
CPT/HCPCS: 36415; 71046; 74018; 80048; 81001; 82043; 82962; 83735; 84100; 85014; 85018; 85025; 85027; 87077; 87086; 87088; 87426; 93970; 94762; 97110; 97116; 97162; 97166; 97530; 97535; 97802; 97803; A4216

== ENCOUNTER → 2025-03-21 | Outpatient (CLI) | payer SELFPAY, OTHER ==
--- NOTE | 2025-03-21 10:09 | VDLE_ITS ---
Reason For Study Reason For Study: Bilateral leg swellig RIGHT LEFT CFV is compressible, spontaneous, phasic, competent GSV is normal. and demonstrates normal augmentation. CFV is compressible, spontaneous, phasic, competent, FV is compressible, spontaneous, phasic, competent and and demonstrates normal augmentation. demonstrates normal augmentation. FV is compressible, spontaneous, phasic, competent POP V is compressible, spontaneous, phasic, competent and demonstrates normal augmentation. and demonstrates normal augmentation. POP V is compressible, spontaneous, phasic, competent T/P Trunk is compressible. and demonstrates normal augmentation. PTV is compressible. T/P Trunk is compressible. RT PerV is compressible. PTV is compressible. Rt GSV calf mid to distal is noncompressible, no LT PerV is compressible. significant change as compared to 02/27/2025 GastrocV is partially compressible, with venous flow Remainder of GSV is compressible as compared to 02/27/2025 Very difficult to visualize FV mid/distal and calf Very difficult to visualize FV mid/distal and calf veins due to patient body habitus. veins due to patient body habitus. Procedure This is a venous duplex using B-mode, color flow and spectral Doppler. Exam performed in department. A preliminary report was called and/or faxed to PCP: Oanh WELLS. VL/Venous Duplex US - Jose Luis Extrem Interpretation Summary Acute deep vein thrombosis noted in the left gastrocnemius vein. Similar to pre vious study with partial thrombus resolution Acute superficial vein thrombosis noted in the right great saphenous vein below the knee. No significant change since previous study. Ordering Physician: Asia Dodd Referring Physician: Kerwin Hugo Performed By: Lindsey Harrington, RVT
== END | disposition home or self-care (01) ==
PROVIDERS: PCP Physician Assistant; Referring Provider Internal Medicine; Visit Provider Internal Medicine
DX: I82.462 Acute embolism and thrombosis of left calf muscular vein (principal)
CPT/HCPCS: 93970

== ENCOUNTER 2025-03-27 13:55 | Outpatient (RCR) | payer OTHER, SELFPAY ==
[2025-03-27 14:34] VITALS: BP 151/68; PULSE 92; RESP 18; TEMP 36.2; BMI 35.6
--- NOTE | 2025-03-27 15:42 | PCM.WC.HP ---
History of Present Illness Date of Service: 03/27/25 History of Wound: The patient is a 79-year-old male presenting with concerns related to venous stasis ulcer and deep vein thrombosis management. Following a left hip replacement on February 14, 2025, the patient developed blood clots in both legs, confirmed by ultrasound. He was under the care of [facility] rehabilitation unit where he was prescribed Eliquis and has been taking his Eliquis ever since. The right anterior valentine venous stasis ulcer, present before surgery, has worsened postoperatively. The patient has diabetes mellitus with an A1c of 6.2, indicating prediabetes, and reports some neuropathy, which is managed through dietary control. Patient has never seen a vascular surgeon. Patient is extremely happy with his new left hip, and reports doing quite well and feeling well. ROS: - Cardiovascular: Denies chest pain, orthopnea, or syncope. - Respiratory: Denies dyspnea or cough. - Neurological: Reports mild neuropathy in feet. Denies headaches or dizziness. Attestation: Documentation on this patient encounter was supported using ambient scribe technology/ voice AI technology. The patient consented to recording for the purpose of documenting the encounter. Provider reviewed content of the generated note prior to signature. 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 Trochanteric bursitis, left hip Tobacco dependence in remission Hiatal hernia with GERD Left lumbar radiculitis Chronic renal failure (CRF), stage 3b Lumbar spondylosis Wears glasses Wears partial dentures Alcohol use Rash Walker as ambulation aid Arthritis High cholesterol Back pain Syncope Dietary restriction Constipation Chewing tobacco use History of pain when walking Hypertension Pulmonary embolism Home Medications ?Medication ?Instructions ?Recorded ?Last Taken ?Type cholecalciferol (vitamin D3) 25 25 mcg PO DAILY SUPPLEMENT 02/07/25 02/17/25 History mcg (1,000 unit) tablet (Vitamin D3) magnesium 250 mg tablet 750 mg PO DAILY SUPPLEMENT 02/07/25 02/13/25 History lisinopril 5 mg tablet 5 mg PO DAILY #30 tabs 02/27/25 Unknown Rx apixaban 2.5 mg tablet (Eliquis) 2.5 mg PO BID #60 tabs 02/28/25 Unknown Rx apixaban 5 mg tablet (Eliquis) 5 mg PO BID #120 tabs 03/27/25 Unknown Rx cephalexin 500 mg capsule 500 mg PO TID #42 caps 03/27/25 Unknown Rx glipizide 5 mg tablet 5 mg PO BID 03/27/25 Unknown History Allergy/AdvReac Type Severity Reaction Status Date / Time No Known Allergies Allergy Verified 03/27/25 09:56 Family History Son VTE (venous thromboembolism) many family members have had blood clots......possible inherited hypercoagulable disorder. Surgical History Status post left hip replacement Hx of right cataract extraction Hx of left cataract extraction Hx of appendectomy History of right hip replacement Social History household members: none housing: house number of children: 7 current occupational status: retired Smoking Status: Former smoker Tobacco: How many years used: 35 Smokeless tobacco user: snuff how long ago did patient quit smokin years ago alcohol intake: current alcohol intake frequency: holidays/special occasions only details: has an occasional beer in the summer and a shot of whiskey in the winter. substance use type: does not use Vital Signs Vital Signs Vital Signs: 03/27/25 14:34 Temperature 97.1 F L Temperature Source Temporal Pulse Rate 92 Respiratory Rate 18 Blood Pressure 151/68 H Blood Pressure Mean 95 Blood Pressure Source Monitor Weight Weight: 255 lb 2.86 oz Body Mass Index (BMI) 35.6 Physical Exam Narrative Right lower extremity: Inspection : presence of venous stasis ulcer, multiple small patches in the anterior valentine with largest measuring 1 x 1 cm. There is granulation tissue at the base. Minimal fibrinous exudates/biofilm. Very healthy appearing and appear to be healing. Palpation: 2+ pitting edema Motor: 5+ plantarflexion and dorsiflexion. No pain with passive dorsiflexion Sensation: Reports diminished sensation to light touch vascular: Doppler ultrasound used to assess blood flow, biphasic signal. Foot is warm. No palpable pulses on my exam. Debridement Note Debridement Note No debridement was completed: No debridement was completed today Post-Debridement Measurements and Additional Note: Post-Debridement Measurements/Treatment WC - Nurse 1 - General Ulcer Assessment Start: 03/27/25 14:34 Freq: Status: Active Protocol: WC.LOWEXT Activity Type Activity Date Activity User E-sign Co-sign Detail Recorded Client Recorded Date Recorded By Document 03/27/25 14:34 DL [id number] 03/27/25 14:49 DL 03/27/25 14:34 WC - Today's Visit Information Type of service Initial Visit Arrival Mode Ambulatory Transfer Assistance None Patient Identification Verified (Name & Yes ) Patient Requires Transmission-Based No Precautions Height and Weight Height 5 ft 11 in Weight 255 lb 2.86 oz Weight in Pounds 255.2 lbs Body Mass Index (BMI) 35.6 BMI Classification Obese Vital Signs Temperature (97.8 F-99.1 F) 97.1 F L Temperature Source Temporal Pulse Rate (60-100) 92 Pulse Location Monitor Respiratory Rate (12-18) 18 Respiratory rate source Observation Blood Pressure (90/60-120/80) 151/68 H Blood Pressure Mean 95 Source Monitor Pain Scale: 0-10 Numeric Is Patient Pain Free? Yes Lower Extremity Assessment/ Foot Assessment/ Toe Nail Assessment Left -Posterior Tibial Palpable No -Posterior Tibial Doppler Multiphasic -Dorsalis Pedis Palpable No -Dorsalis Pedis Doppler Multiphasic -Extremity Color Normal -Hair Growth on Legs No -Hair Growth on Toes No -Temperature of Extremity Warm -Capillary Refill Less than 3 Seconds -Dependent Rubor No -Blanched when Elevated No -Other Deformity No -Prior Foot Ulcer No -Charcot Joint No -Prior Amputation No -Thick No -Discolored No -Deformed No -Improper Length & Hygeine No Right -Posterior Tibial Palpable No -Posterior Tibial Doppler Multiphasic -Dorsalis Pedis Palpable No -Dorsalis Pedis Doppler Multiphasic -Extremity Color Normal -Hair Growth on Legs No -Hair Growth on Toes No -Temperature of Extremity Warm -Capillary Refill Less than 3 Seconds -Dependent Rubor No -Blanched when Elevated No -Lipodermatosclerosis No -Other Deformity No -Prior Foot Ulcer No -Charcot Joint No -Prior Amputation No -Thick No -Discolored No -Deformed No -Improper Length & Hygeine No Teaching Assessment Preferences Verbal Readiness To Learn Good Willingness to Engage in Self Management Med Activies Readiness to Engage in Self Management Med Activities Anxiety Level Calm Cooperation Cooperative Perception Coherent Interest in Health Problem Asks Questions Education Importance Acknowledges Need Does Patient Smoke tobacco or other No substances Smoking Status Former smoker Is Patient Diabetic Yes Functional Assessment Recent Decline in Ability to Perform Denies Any Declines Culture/Faith/Cash Clerk Cultural/Faith Needs that may affect No Treatment Plan Would you allow our hospital crisis worker to No meet you for the purpose of spiritual/ emotional support? Cash Clerk to contact place of sabianism No WC - Nurse 1 - General Ulcer Measurement Start: 03/27/25 14:34 Freq: Status: Active Protocol: Activity Type Activity Date Activity User E-sign Co-sign Detail Recorded Client Recorded Date Recorded By Document 03/27/25 14:34 DL [id number] 03/27/25 14:49 DL 03/27/25 14:34 Wound Center Nurse 1 #1 RLE Ant -Current Size (cm) - Length 13.5 -Current Size (cm) - Width 4.3 -Current Size (cm) - Depth 0.1 -Total Square Cm 58.05 -Photo Taken Yes -Exudate Amt Large -Exudate Type Serosanguineous -Wound Margin Distinct, Outline Attached -Granulation Amt Medium (34-66%) -Granulation Quality [place] -Necrosis Amt Medium (34-66%) -Necrotic Tissue Type Adherent Slough -Structure Exposed N/A -Texture (Dilma-wound Skin Appearance) Localized Edema ,Scarring -Moisture (Dilma-wound Skin Appearance) No Abnormality -Color (Dilma-wound Skin Appearance) No Abnormality -Temperature (Dilma-wound Skin No Abnormality Appearance) (Pt Warm) -Tenderness on Palpation (Dilma-wound No Skin Appearance) -Ulcer Cleansing Soap and Water -Foul Odor after Cleansing No -Anesthetic Used 4% Lidocaine Solution Right Calf (cm) 41.5 Right Ankle (cm) 25.6 Left Calf (cm) 43 Left Ankle (cm) 25.5 WC - Nurse 2 - General Ulcer CM Notes Start: 03/27/25 14:34 Freq: Status: Active Protocol: Activity Type Activity Date Activity User E-sign Co-sign Detail Recorded Client Recorded Date Recorded By Document 03/27/25 15:21 JF [id number] 03/27/25 15:31 JF 03/27/25 15:21 Wound Center Nurse 2 #1 RLE Ant -Time 15:22 -Correct Patient Yes -Correct Side, Site, Position No -Correct Procedure No -Procedure Performed No -Post Debridement (cm) - Length 14 -Post Debridement (cm) - Width 5 -Post Debridement (cm) - Depth 0.1 -Total Square (Post) (cm) 70 -Area of Debridement (cm) - Length 14 -Area of Debridement (cm) - Width 5 -Total Square (Area) (cm) 70 -Tunneling No -Undermining/Tunneling No -Circular Undermining No -Wound/Ulcer Outcome Not Healed -Ulcer Cleansing Rinsed/ Irrigated with Saline -Bleeding Controlled with Pressure -Treatment Response Procedure Tolerated Well -Offloading No -Debridement - Subq, 1st 20sq cm No Pain Scale: 0-10 Numeric Is Patient Pain Free? Yes Charges/Coding Visit Charges Office Visits / Consults: [id number] OV L3 New 30min Assessment/Plan Assessment/Plan (1) Ulcer of right leg: CODE(S): L97.919 - Non-pressure chronic ulcer of unspecified part of right lower leg with unspecified severity QUALIFIERS: Non-pressure ulcer stage: limited to breakdown of skin Qualified Code(s): L97.911 - Non-pressure chronic ulcer of unspecified part of right lower leg limited to breakdown of skin PLAN: Assessment and Plan The patient is a 79-year-old male with a history of venous stasis ulcer and deep vein thrombosis, presenting for management of the venous stasis ulcer. Following hip replacement surgery, the patient developed bilateral deep vein thrombosis, confirmed by ultrasound, with no significant change noted in follow-up imaging. The venous stasis ulcer, which worsened postoperatively, should be managed with hydrogel and Adaptic dressings, with plans to assess blood flow using ankle-brachial indices before considering compression therapy. Once adequate inflow is confirmed, I would recommend compression. My plan is to refer him to vascular surgery/wound care ([facility] and Dr. Hammond) who can manage both the ulcer as well as the vascular component of his disease. I have ordered ABIs. Patient happy with the plan Patient will continue to follow with his PCP for his Eliquis/DVT treatment, and vascular surgery can assist as well as needed.
--- NOTE | 2025-03-28 09:50 | WC ---
PHOTO-LLE 03/27/25
== END 2025-03-30 23:59 | disposition home or self-care (01) ==
LOC: WC 13:55
PROVIDERS: PCP Physician Assistant; Referring Provider Orthopaedic Surgery; Visit Provider Physician Assistant
DX: E11.622 Type 2 diabetes mellitus with other skin ulcer (principal); L97.911 Non-pressure chronic ulcer of unspecified part of right lower leg limited to breakdown of skin; E11.22 Type 2 diabetes mellitus with diabetic chronic kidney disease; Z86.711 Personal history of pulmonary embolism; Z86.718 Personal history of other venous thrombosis and embolism; N18.9 Chronic kidney disease, unspecified; Z87.891 Personal history of nicotine dependence; Z79.01 Long term (current) use of anticoagulants; I12.9 Hypertensive chronic kidney disease with stage 1 through stage 4 chronic kidney disease, or unspecified chronic kidney disease; E78.00 Pure hypercholesterolemia, unspecified
CPT/HCPCS: 99213; G0463

== ENCOUNTER 2025-04-13 12:28 | Outpatient (RCR) | payer OTHER, SELFPAY ==
[2025-04-13 13:09] VITALS: BP 150/77; PULSE 92; RESP 18; TEMP 36.6
--- NOTE | 2025-04-13 14:28 | HP.PCM_ITS ---
History of Present Illness Date of Service: 04/13/25 History of Wound: Mr. Jeremiah Laughlin is a 79 y/o male who initially presented to the wound center a few weeks ago for ongoing evaluation and management of a R valentine venous stasis ulcer for which he was seen here by Dr. Reece. He had a left hip replacement on 02/14/25 following which he unfortunately developed LLE gastroc DVT and RLE GSV SVT (initial doppler 02/28/25) he was admitted to the [facility] rehab unit at the time and he was prescribed Eliquis which he reports he has been taking as prescribed since. He'd had this R valentine venous ulcer prior to surgery, but it did worsen following surgery/DVT. His medical history is otherwise significant for DM last A1c 6.2. At last visit here, Dr. Reece had ordered vascular testing and referred patient for ongoing follow-up with me to address both his vascular disease and wounds. His arterial study 04/13/25 demonstrated R DAISY 1.13 with multiphasic waveforms and L DAISY 1.09 with multiphasic waveforms. Recent venous doppler 03/21/25 showed partial resolution of the LLE gastroc DVT and R GSV SVT. He reports his wound is healed this week. He has no particular concerns. 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 Trochanteric bursitis, left hip Tobacco dependence in remission Hiatal hernia with GERD Left lumbar radiculitis Chronic renal failure (CRF), stage 3b Lumbar spondylosis Wears glasses Wears partial dentures Alcohol use Rash Walker as ambulation aid Arthritis High cholesterol Back pain Syncope Dietary restriction Constipation Chewing tobacco use History of pain when walking Hypertension Pulmonary embolism Home Medications Medication Instructions Recorded Last Taken Type cholecalciferol (vitamin D3) 25 25 mcg PO DAILY SUPPLE MENT 02/07/25 02/17/25 History mcg (1,000 unit) tablet (Vitamin D3) magnesium 250 mg tablet 750 mg PO DAILY SUPPLEMENT 0 02/07/25 02/13/25 History lisinopril 5 mg tablet 5 mg PO DAILY #30 tabs 02/27 Unknown Rx apixaban 2.5 mg tablet (Eliquis) 2.5 mg PO BID #60 tab s 02/28/25 Unknown Rx apixaban 5 mg tablet (Eliquis) 5 mg PO BID #120 tabs 0 03/27/25 Unknown Rx cephalexin 500 mg capsule 500 mg PO TID #42 caps 03/27 Unknown Rx glipizide 5 mg tablet 5 mg PO BID 03/27/25 Unknown History Allergy/AdvReac Type Severity Reaction Status Date / Time No Known Allergies Allergy Verified 03/27/25 09:56 Family History Son VTE (venous thromboembolism) many family members have had blood clots......possible inherited hypercoagulable disorder. Surgical History Status post left hip replacement Hx of right cataract extraction Hx of left cataract extraction Hx of appendectomy History of right hip replacement Social History household members: none housing: house number of children: 7 current occupational status: retired Smoking Status: Former smoker Tobacco: How many years used: 35 Smokeless tobacco user: snuff how long ago did patient quit smokin years ago alcohol intake: current alcohol intake frequency: holidays/special occasions only details: has an occasional beer in the summer and a shot of whiskey in the winter. substance use type: does not use Vital Signs Vital Signs Vital Signs: 04/13/25 13:09 Temperature 97.9 F Temperature Source Temporal Pulse Rate 92 Respiratory Rate 18 Blood Pressure 150/77 H Blood Pressure Mean 101 Blood Pressure Source Monitor Blood Pressure Position Sitting Blood Pressure Location Right Arm Oxygen Delivery Method Room Air Physical Exam Const alert, oriented x3 and no apparent distress General Appearance: cooperative and comfortable HEENT normocephalic, head/scalp atraumatic, hearing grossly normal bilaterally, external ears normal and external nose normal Eyes General Eye: normal appearance of both eyes Neck General: normal visual inspection and trachea midline Resp Effort and Inspection: able to speak in complete sentences; Negative for labored, grunting or stridor Cardio regular rate and regular rhythm Peripheral Pulses: posterior tibial pulses present and dorsalis pedis pulses present Extremity Extremity Narrative: 1+ BLE edema Skin Wound Narrative: R anterior valentine ulceration is fully epithelialized. Neuro oriented x3 and moves all extremities Psych mental status grossly normal Appearance: grossly normal Attitude: calm and engaged Activity / Motor Behavior: appropriate eye contact Speech: normal speech Debridement Note Debridement Note No debridement was completed: No debridement was completed today Post-Debridement Measurements and Additional Note: Post-Debridement Measurements/Treatment WC - Nurse 1 - General Ulcer Assessment Start: 04/13/25 13:09 Freq: Status: Active Protocol: JEANNIE Activity Type Activity Date Activity User E-sign Co-sign Detail Recorded Client Recorded Date Recorded By Document 04/13/25 13:09 WI [id number] 04/13/25 13:12 WI 04/13/25 13:09 - Today's Visit Information Type of service Follow-up Visit (Physician/[facility] ) Arrival Mode Ambulatory, Walker Transfer Assistance None Accompanied by family Patient Identification Verified (Name & Yes ) Patient Requires Transmission-Based No Precautions Safety Precautions Fall Prevention Vital Signs Temperature (97.8 F-99.1 F) 97.9 F Temperature Source Temporal Pulse Rate (60-100) 92 Pulse Location Monitor Respiratory Rate (12-18) 18 Respiratory rate source Observation Oxygen Delivery Method Room Air Blood Pressure (90/60-120/80) 150/77 H Blood Pressure Mean (mm Hg) 101 Source Monitor Position Sitting Blood Pressure Location Right Arm History Since Last Visit- (Skip if this is Patient's initial visit) Have you changed medications since your No last visit? Any new allergies or adverse reactions No Had a fall/change in ADL's that may No increase risk of falls Signs or symptoms of abuse and/or No neglect since last visit Have you been in the hospital since your No last visit? Has dressing in place as prescribed No Has compression in place as prescribed N/A Has offloadiing in place as prescribed N/A Experienced any changes in pain level or No management Left Footwear Slipper Right Footwear Slipper Pain Scale: 0-10 Numeric Is Patient Pain Free? No - Nurse 1 - General Ulcer Measurement Start: 04/13/25 13:09 Freq: Status: Active Protocol: Activity Type Activity Date Activity User E-sign Co-sign Detail Recorded Client Recorded Date Recorded By Document 04/13/25 13:09 WI [id number] 04/13/25 13:12 WI 04/13/25 13:09 Wound Center Nurse 1 #1 RLE Ant -Current Size (cm) - Length 0.1 -Current Size (cm) - Width 0.1 -Current Size (cm) - Depth 0.1 -Total Square Cm 0.01 -Date of Last Picture (Recall this 04/13/25 field) -Photo Taken Yes -Tunneling No -Undermining/Tunneling No -Circular Undermining No -Texture (Dilma-wound Skin Appearance) Assessed -Moisture (Dilma-wound Skin Appearance) Assessed -Color (Dilma-wound Skin Appearance) Assessed -Temperature (Dilma-wound Skin No Abnormality Appearance) (Pt Warm) -Tenderness on Palpation (Dilma-wound No Skin Appearance) -Ulcer Cleansing Soap and Water -Foul Odor after Cleansing No Lower Limb Edema Present Yes Right Calf (cm) 38.0 Right Ankle (cm) 24.5 Left Calf (cm) 39.0 Left Ankle (cm) 26.5 WC - Nurse 2 - General Ulcer CM Notes Start: 04/13/25 13:09 Freq: Status: Active Protocol: Activity Type Activity Date Activity User E-sign Co-sign Detail Recorded Client Recorded Date Recorded By Document 04/13/25 13:32 GM [id number] 04/13/25 13:33 GM 04/13/25 13:32 Wound Center Nurse 2 #1 RLE Ant -Time 13:32 -Correct Patient Yes -Correct Side, Site, Position Yes -Correct Procedure No -Procedure Performed No -Tunneling No -Undermining/Tunneling No -Circular Undermining No -Wound/Ulcer Outcome Healed- Epithelialized -Ulcer Cleansing Not Cleansed -Foul Odor after Cleansing No -Bioengineered Tissue No -Bleeding Controlled with NA -Offloading No Pain Scale: 0-10 Numeric Is Patient Pain Free? Yes - Nurse 3 - General Ulcer D/C NN Start: 04/13/25 13:09 Freq: Status: Active Protocol: Activity Type Activity Date Activity User E-sign Co-sign Detail Recorded Client Recorded Date Recorded By Document 04/13/25 13:51 ML [id number] 04/13/25 13:52 ML 04/13/25 13:51 Wound Care Center Nurse 3 BLE -Tubular Bandage Double Layer -Size of Tubigrip Used Size E -Size E ($) 2 Pain Scale: 0-10 Numeric Is Patient Pain Free? Yes Charges/Coding Visit Charges Office Visits / Consults: [id number] OV L3 New 30min Assessment/Plan Assessment/Plan (1) Ulcer of right leg: CODE(S): L97.919 - Non-pressure chronic ulcer of unspecified part of right lower leg with unspecified severity QUALIFIERS: Non-pressure ulcer stage: limited to breakdown of skin Qualified Code(s): L97.911 - Non-pressure chronic ulcer of unspecified part of right lower leg limited to breakdown of skin (2) Superficial vein thrombosis: CODE(S): I82.890 - Acute embolism and thrombosis of other specified veins (3) DVT of lower limb, acute: CODE(S): I82.409 - Acute embolism and thrombosis of unspecified deep veins of unspecified lower extremity QUALIFIERS: Affected thrombotic vein of extremity: calf muscle vein Laterality: left Qualified Code(s): I82.462 - Acute embolism and thrombosis of left calf muscular vein (4) Bilateral lower extremity edema: CODE(S): R60.0 - Localized edema (5) Chronic venous insufficiency: CODE(S): I87.2 - Venous insufficiency (chronic) (peripheral) PLAN: Plan His wound is healed today. I discussed with him the findings of his arterial study; no significant PAD. We discussed the findings of his most recent duplex showing resolving DVT. As he had provoked, infrapopliteal DVT it would be reasonable to complete 3 months of anticoagulation with Eliquis. I asked who was prescribing this for him, he thinks his PCP is. He reports he has upcoming appt with his PCP. I offered follow-up in the vascular office to ensure continuity of care with therapy but he declined. I do advise that he wear measured compression (20-30 mmHg) stockings daily in addition to leg elevation at all times of rest, and avoidance of prolonged idle sitting/standing where possible. He is advised to follow-up here or with me in the office with any recurrent symptoms or new concerns. He is discharged from the wound healing center and will return as needed.
--- NOTE | 2025-04-14 09:19 | WC ---
PHOTO-RLE 04/13/25
== END 2025-04-30 23:59 | disposition home or self-care (01) ==
LOC: WC 12:28
PROVIDERS: PCP Physician Assistant; Referring Provider Orthopaedic Surgery; Visit Provider Physician Assistant
DX: Z09 Encounter for follow-up examination after completed treatment for conditions other than malignant neoplasm (principal); I82.462 Acute embolism and thrombosis of left calf muscular vein; I87.2 Venous insufficiency (chronic) (peripheral); R60.0 Localized edema
CPT/HCPCS: 99213; G0463

== ENCOUNTER → 2025-04-13 | Outpatient (CLI) | payer SELFPAY, OTHER ==
--- NOTE | 2025-04-13 10:50 | ART_ITS ---
Reason For Study Reason For Study: RLE Wound Procedure A bilateral lower extremity continuous wave Doppler with analog waveform analysis,segmental pressures,and ankle brachial indexes without exercise. Left Segmental Pressures Left brachial= 148mmHg. Left posterior tibial artery = 174mmHg. Left dorsalis pedis artery = 163mmHg. Left digit = 121 mmHg. The left posterior tibial artery waveforms are biphasic. The left dorsalis pedis waveforms are triphasic. Right Segmental Pressures Right brachial= 159mmHg. Right posterior tibial artery = 123mmHg. Right dorsalis pedis artery = 179mmHg. Right digit = 77 mmHg. The right posterior tibial artery waveforms are biphasic. The right dorsalis pedis waveforms are triphasic. Indices The right ankle brachial index by the posterior tibial artery is 0.77. The right ankle brachial index by the dorsalis pedis is 1.13. The right digital-brachial index is 0.48. The left ankle brachial index by the posterior tibial artery is 1.09. The left ankle brachial index by the dorsalis pedis is 1.03. The left digital-brachial index is 0.76. VL/Lower Ext Art Exam w/o Exercis Interpretation Summary Right DAISY 1.13, normal. Doppler/PVR waveforms of the right leg normal at rest. TBI diminished, pedal/digit disease vs spasm. Left DAISY 1.09, normal. TBI and Doppler/PVR waveforms of the left leg normal at rest. Ordering Physician: Jasper Reece Referring Physician: Kerwin Hugo Performed By: Gurmeet Badillo [email or web address]
== END | disposition home or self-care (01) ==
PROVIDERS: PCP Physician Assistant; Referring Provider Surgery Plastic and Reconstructive Surgery; Visit Provider Surgery Plastic and Reconstructive Surgery
DX: L97.911 Non-pressure chronic ulcer of unspecified part of right lower leg limited to breakdown of skin (principal)
CPT/HCPCS: 93923

== ENCOUNTER → 2025-05-11 | Outpatient (CLI) | payer OTHER, SELFPAY ==
--- NOTE | 2025-05-11 09:57 | VDLE_ITS ---
Reason For Study Reason For Study: Pain RIGHT LEFT GSV is normal. GSV is normal. CFV is compressible, spontaneous, phasic, competent CFV is compressible, spontaneous, phasic, competent, and demonstrates normal augmentation. and demonstrates normal augmentation. FV is compressible, spontaneous, phasic, competent FV is compressible, spontaneous, phasic, competent and demonstrates normal augmentation. and demonstrates normal augmentation. POP V is compressible, spontaneous, phasic, competent POP V is compressible, spontaneous, phasic, competent and demonstrates normal augmentation. and demonstrates normal augmentation. T/P Trunk is compressible. T/P Trunk is compressible. PTV is compressible. PTV is compressible. RT PerV is compressible. LT PerV is compressible. Procedure Gastroc V is NONCOMPRESSIBLE and consistent with This is a venous duplex using B-mode, color flow and acute DVT. spectral Doppler. Exam performed in department. The study was technically difficult. VL/Venous Duplex US - Jose Luis Extrem Interpretation Summary Acute deep vein thrombosis is noted in the left gastrocnemius vein. Deep veins of the right lower extremity are patent and compressible segmentally . There is no evidence of right lower extremity deep vein thrombosis. The bilateral great saphenous veins appear dubon nt and compressible segmentally. Ordering Physician: Rasheed Galindo Referring Physician: Kerwin Hugo PA Performed By: Eryn Ramos RVT
--- OUTSIDE RECORDS SUMMARY | 2025-05-11 16:09 | XMS RPT_ITS | CCD ---
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 Carver Spindle Name Role Phone CHITO EVERETT MD Unavailable Unavailable LATOUF, BUTROS MD Unavailable Unavailable LATOUF, BUTROS MD Unavailable Unavailable LATOUF, BUTROS MD Unavailable Unavailable LATOUF, BUTROS MD Unavailable Unavailable LATOUF, BUTROS MD Unavailable Unavailable LATOUF, BUTROS MD Unavailable Unavailable LATOUF, BUTROS MD Unavailable Unavailable LATOUF, BUTROS MD Unavailable Unavailable LATOUF, BUTROS MD Unavailable Unavailable LATOUF, BUTROS MD Unavailable Unavailable LATOUF, BUTROS MD Unavailable Unavailable LATOUF, BUTROS MD Unavailable Unavailable PROVIDER, UNKNOWN Unavailable Unavailable PROVIDER, UNKNOWN Unavailable Unavailable PROVIDER, UNKNOWN Unavailable Unavailable LATOUF, BUTROS MD Unavailable Unavailable LATOUF, BUTROS MD Unavailable Unavailable LATOUF, BUTROS MD Unavailable Unavailable Oanh HUMMEL, Kerwin iBrch Unavailable [phone] ([place]), [facility] Unavailable Zane AUGUSTE, Janee Unavailable Karen Zaragoza MA Unavailable Unavailable Sonam Mann LPN Unavailable Unavailable Jessica Coburn RN Unavailable Unavaila gi Valdez LPN, Jorje Unavailable Unavailable Sonam Bautista MA Unavailable Unavailable Unavailable Unavailable NONE NONE, NONE~[phone] NONE Primary Care Unavailable TESS SAMPSON MD Consulting Unavailable NELY HOPPER Attending Unavailable NELY HOPPER Admitting Unavailable TESS SAMPSON MD Consulting Unavailable NONE NONE, NONE~[phone] NONE Consulting Unavailable NONE, NONE Consulting Unavailable NELY HOPPER Consulting Unavailable NELY HOPPER Consulting Unavailable Dr. Tess Hernandez MD Primary Care Provider Dr. Tess Hernandez MD Referring Provider [phone] Josie VENTURA, Dr. Iqbal Attending Provider Shannon LINTON, Dr. Cabello Attending Provider Yesica Johnston LPN Unavailable Unavailabl e Josie VENTURA, Dr. Iqbal Referring Provider Josie VENTURA, Dr. Iqbal Admit Provider Franco LINTON, Dr. Llanes Other Provider Oanh WELLS, [place] Primary Care Provider Roselyn VENTURA, Dr. Celaya Other Provider [phone] Josie VENTURA, Dr. Iqbal Other Provider Roselyn VENTURA, Dr. Celaya Attending Provider Franco LINTON, Dr. Llanes Attending Provider Oanh WELLS, [place] Primary Care Provider James DO, Dr. Strickland Attending Provider Sementi DO, Dr. Asia Rivas Admit Provider Sementi DO, Dr. Asia Rivas Attending Provide r Sementi DO, Dr. Asia Rivas Referring Provide r Sementi DO, Dr. Asia Rivas Other Provider Stephany LINTON, Dr. Crawford Attending Provider [facility] Unavailable Unavailable Park Pollock Attending Provider Dr. Jasper Reece MD Attending Provider Dr. Jasper Reece MD Other Provider Dr. Jasper Reece MD Referring Provider Oanh, Luke Primary Care Unavailable Sementi, Asia Rivas Attending Unavaila ble SemenAsia dorsey Referring Unavaila ble Oanh, Luke Primary Care Unavailable SemenAsia dorsey Attending Unavaila ble Rasheed Galindo Referring Unavailable Oanh, Luke Primary Care Unavailable Park Estrada Attending Unavailable Rasheed Galindo Attending Unavailable Rasheed Galindo Referring Unavailable Oanh, ke Primary Care Unavailable Oanh, ke Primary Care Unavailable Ty Hammond Attending Unavailable PoppysoRasheed Attending Unavailable Hernandez, Tess Referring Unavailable [facility] Primary Care Unavailable Borruso, Rasheed Attending Unavailable [facility], [place] Primary Care Unavailable Hernandez, Tess Referring Unavailable Borruso, Rasheed Admitting Unavailable Borruso, Rasheed Referring Unavailable Shraddha Gamez Consulting Unavailable Abbeyruso, Rasheed Attending Unavailable [facility], [place] Primary Care Unavailable Yomi Dempsey Consulting Unavailable Rasheed Galindo Consulting Unavailable Shraddha Gamez Attending Unavailable Abbeyruso, Rasheed Referring Unavailable EstradaPark giang Attending Unavailable [facility], [place] Primary Care Unavailable LoviliaTy whatley Attending Unavailable [facility], [place] Primary Care Unavailable Sementi, Asia Rivas Referring Unavaila ble [facility] Primary Care Unavailable Irineo Ortega Attending Unavailable SemenAsia dorsey Admitting Unavaila ble Sementi, Asia Rivas Referring Unavaila ble Sementi, Asia Rivas Attending Unavaila ble Oanh, [place] Primary Care Unavailable Sementi, Asia Rivas Consulting Unavaila ble Borruso, Rasheed Referring Unavailable BorRasheed lazaro Attending Unavailable [facility] Primary Care Unavailable Siska, Jasper Referring Unavailable Sisja, Jasper Attending Unavailable Oanh, ke Primary Care Unavailable Borruso, Rasheed Referring Unavailable SisJasper peres Attending Unavailable [facility], [place] Primary Care Unavailable SisJasper peres Consulting Unavailable Ty Hammond Attending Unavailable [facility], [place] Primary Care Unavailable Sementi, Asia Rivas Referring Unavaila ble Borruso, Rasheed Admitting Unavailable Rasheed Galindo Attending Unavailable Abbeyruso, Rasheed Referring Unavailable Shraddha Gamez Consulting Unavailable Oanh, Luke Primary Care Unavailable Yomi Dempsey Consulting Unavailable Abbeyruso, Rasheed Referring Unavailable Park Estrada Attending Unavailable [facility], [place] Primary Care Unavailable [facility], [place] Primary Care Unavailable Irineo Ortega Attending Unavailable AbbeyruRasheed post Attending Unavailable Marco A Ramirez Attending Unavailable [facility] Primary Care Unavailable Borruso, Rasheed Admitting Unavailable Borruso, Rasheed Referring Unavailable Yomi Dempsey Consulting Unavailable Yomi Dempsey Attending Unavailable [facility] Primary Care Unavailable BorrusoRasheed Consulting Rasheed Leal Attending Unavailable Ju, Asia Rivas Admitting Unavaila ble Sementi, Asia Rivas Referring Unavaila ble Medications Current Medications Medication Drug Class(es) Dates Sig (Normalized) Sig (Original) apixaban 2.5 mg oral tablet (20 sources) Factor Xa Inhibitor Start: 04-04-2025 Eliquis 2.5 mg tablet ; 1 Tablet 2 times per day for 30 days Quantity: 60 {Tablet} Refills: 0 Ordered: 04-Apr-2025 ESTEPHANIE Hugo Start: 04-Apr-2025 Start: 03-27-2025 End: 03-27-2025 take 1 tablet by mouth twice daily Apixaban (Eliquis) 5 mg tablet Active 5 mg PO TWICE A DAY 120 March 27, 2025 11:53am Start: 02-28-2025 take 1 tablet by kristyn th every twelve hours Apixaban (Eliquis) 2.5 mg tablet Active 2.5 mg PO TWICE A DAY 60 0 February 28, 2025 12:00am 1 ab every 12 H Start: 02-16-2025 End: 04-04-2025 take 1 tablet by mouth twice daily Apixaban (Eliquis) 2.5 mg tablet Discontinued 2.5 mg PO TWICE A DAY 66 0 February 16, 2025 12:00am February 27, 2025 1:15pm Blood thinner cephalexin 500 mg oral capsule (4 sources) Cephalosporin Antibacterial Start: 03-27-2025 take 1 capsule by mouth three times daily Cephalexin 500 mg capsule Active 500 mg PO THREE TIMES A DAY 42 0 March 27, 2025 12:00am cholecalciferol 0.025 mg oral tablet (17 sources) Vitamin D Start: 02-07-2025 take 1 tablet by mouth once daily Cholecalciferol (Vitamin D3) (Vitamin D3) 25 mcg (1,000 unit) tablet Active 25 ug PO DAILY February 07, 2025 12:00am SUPPLEMENT glipiZIDE 5 mg oral tablet (20 sources) Sulfonylurea Start: 03-27-2025 take 1 tablet by mouth twice daily Glipizide 5 mg tablet Active 5 mg PO TWICE A DAY March 27, 2025 12:00am Start: 01-13-2025 End: 03-10-2025 take 1 tablet by mouth twice daily Glipizide 5 mg tablet Discontinued 5 mg PO TWICE A DAY January 13, 2025 12:00am February 17, 2025 1:15pm BLOOD GLUCOSE Start: 04-14-2023 End: 02-10-2024 glipiZIDE 5 mg tablet ; 1 (o ne) Tablet two times daily for 90 days Quantity: 180 {Tablet} Refills: 0 Ordered: 12-Nov-2023 ESTEPHANIE Hugo Start: 12-Nov-2023 End: 10-Feb-2024 Status: Inactive Magnesium (17 sources) Start: 02-07-2025 take 3 tablets by mo ut once daily Magnesium 250 mg tablet Active 750 mg PO DAILY February 07, 2025 12:00am SUPPLEMENT Start: 02-07-2025 take 3 tablets by mo ut once daily Magnesium 250 mg tablet Active 750 mg PO DAILY February 07, 2025 12:00am magnesium 250 mg tablet ; 750mg daily (250 mg) Completed/Discontinued Medications Medication Drug Class(es) Dates Sig (Normalized) Sig (Original) acetaminophen 500 mg oral tablet (15 sources) Start: 02-17-20 End: 03-27-20 take 2 tablets by mouth every six hours Acetaminophen 500 mg tablet Discontinued 1000 mg PO EVERY 6 HOURS 100 0 February 27, 2025 1:21pm March 27, 2025 2:52pm pain ascorbic acid 1000 mg extended release oral tablet (9 sources) Vitamin C Start: 02-08-20 End: 02-18-20 take 2 tablets by mouth once daily Ascorbic Acid (Vitamin C) (C Complex) 1,000 mg tablet extended release Discontinued 2000 mg PO DAILY February 07, 2025 12:00am February 17, 2025 4:19pm SUPPLEMENT cefadroxil 500 mg oral capsule (7 sources) Cephalosporin Antibacterial Start: 02-29-20 End: 03-27-20 take 1 capsule by mouth twice daily Cefadroxil 500 mg capsule Discontinued 500 mg PO TWICE A DAY 14 February 28, 2025 12:00am March 27, 2025 9:56am ciprofloxacin 500 mg oral tablet (6 sources) Quinolone Antimicrobial Start: 03-02-20 End: 03-27-20 take 1 tablet by mouth twice daily Ciprofloxacin Hcl (Cipro) 500 mg tablet Discontinued 500 mg PO TWICE A DAY 10 March 02, 2025 12:00am March 27, 2025 9:57am docusate sodium 50 mg / sennosides, senior living 8.6 mg oral tablet (8 sources) Start: 02-18-20 End: 02-28-20 Sennosides-Docusate Sodium (Stimulant Laxative Plus) 8.6-50 mg Tablet Discontinued 2 {tbl} PO TWICE A DAY 0 0 February 17, 2025 12:00am February 27, 2025 1:20pm Constipation gabapentin 300 mg oral capsule (8 sources) Anti-epileptic Agent Start: 02-17-20 End: 02-28-20 take 1 capsule by mouth three times daily Gabapentin 300 mg capsule Discontinued 300 mg PO THREE TIMES A DAY 90 0 February 16, 2025 12:00am February 27, 2025 1:18pm Nerve pain glimepiride 1 mg oral tablet (15 sources) Sulfonylurea Start: 02-28-20 End: 03-27-20 Glimepiride 1 mg Tablet Discontinued 3 mg PO WITH BREAKFAST 90 0 February 27, 2025 12:00am March 27, 2025 9:58am 3 tabs each morning Comment on above: Cancel prior Rx for glipizide hydroCHLOROthiazide 25 mg oral tablet (20 sources) Thiazide Diuretic Start: 09-16-19 End: 04-14-20 hydroCHLOROthiazide 25 mg tablet ; 1 (one) Tablet daily for 0 days Quantity: 30 {Tablet} Refills: 2 Ordered: 14-Apr-2023 CALIXTO Coburn Start: 16-Sep-2022 End: 14-Apr-2023 Status: Discontinued lisinopril 5 mg oral tablet (20 sources) Angiotensin Converting Enzyme Inhibitor Start: 02-08-20 End: 02-18-20 take 1 tablet by mouth twice daily Lisinopril 5 mg tablet Discontinued 5 mg PO TWICE A DAY February 07, 2025 12:00am February 17, 2025 1:15pm KIDNEY PREVENTION Start: 01-24-2025 take 1 tablet by kristyn th once daily Lisinopril 5 mg Tablet Active 5 mg PO DAILY 30 0 February 27, 2025 12:00am losartan potassium 100 mg oral tablet (20 sources) Angiotensin 2 Receptor Mark Start: 09-12-2022 End: 04-14-2023 losartan 100 mg tablet ; 1 (one) Tablet daily for 0 days Quantity: 90 {Tablet} Refills: 2 Ordered: 14-Apr-2023 CALIXTO Coburn Start: 12-Sep-2022 End: 14-Apr-2023 Status: Discontinued oxyCODONE hydrochloride 5 mg oral tablet (20 sources) Opioid Agonist Start: 02-27-2025 End: 03-27-2025 take 1 tablet by mouth every six hours as needed for pain Oxycodone 5 mg Tablet Discontinued 5 mg PO EVERY 6 HOURS NEEDED as needed for Pain Score 4-10 15 7 0 February 27, 2025 March 27, 2025 9:58am Status post left hip replacement Presence of left artificial hip joint Start: 02-16-2025 End: 02-27-2025 Oxycodone 5 mg tablet Discon tinued 5 - 10 mg PO Q4H as needed for pain February 17, 2025 12:00am February 27, 2025 1:20pm 5mg pain 3-5 10mg pain 6-10 Comment on above: Medication taken as needed. pantoprazole 40 mg delayed release oral tablet (16 sources) Proton Pump Inhibitor Start: End: take 1 tablet by mouth twice daily Pantoprazole 40 mg Tablet,Delayed Release (Dr/Ec) Discontinued 40 mg PO TWICE A DAY 0 0 February 17, 2025 12:00am March 27, 2025 9:58am GERD Saw-Vit E-Sod Zzd-Hkl-Fwcp-Pyg (Prostate Health) 160-100-100 mg-unit-mcg tablet (9 sources) Start: End: Saw-Vit E-Sod Jnx-Qml-Zzrh-Pyg (Prostate Health) 160-100-100 mg-unit-mcg tablet Discontinued 2 {tbl} PO THREE TIMES A DAY February 07, 2025 12:00am February 17, 2025 4:21pm SUPPLEMENT Start: 02-07-2025 Saw-Vit E-Sod For-Pry-Tvoc-Pyg (Prostate Health) 160-100-100 mg-unit-mcg tablet Active 2 {tbl} PO THREE TIMES A DAY February 07, 2025 12:00am tamsulosin hydrochloride 0.4 mg oral capsule (20 sources) alpha-Adrenergic Mark Start: 02-17-2025 End: 03-27-2025 take 1 capsule by mouth once daily Tamsulosin 0.4 mg Capsule Discontinued 0.4 mg PO DAILY@0830 30 0 February 27, 2025 1:21pm March 27, 2025 9:59am Urine retention vitamin k2 0.1 mg oral capsule (9 sources) Start: 02-07-2025 End: 02-27-2025 Vitamin K2 100 mcg capsule Discontinued 100 ug PO DAILY February 07, 2025 12:00am February 27, 2025 1:20pm SUPPLEMENT On Hold: Ordered Problems Active Problems Problem Classification Problem Date Documented Da te Episodic/Chronic Abdominal hernia (15 sources) Gastroesophageal reflux disease with hiatal hernia; Translations: [Diaphragmatic hernia without obstruction or gangrene] Onset: 5 02-17-2025 Episodic Abdominal pain (1 source) Unspecified abdominal pain; Translations: [Unspecified abdominal pain] Onset: 8 Episodic Acute and unspecified renal failure (20 sources) [id number] renal failure; Translations: [Acute kidney failure, unspecified] Onset: 5 02-28-2025 Episodic Comment on above: Likely due to IV vol ume depletion and IV contrast. Acute posthemorrhagic anemia (16 sources) Anemia following acute postoperative blood loss; Translations: [Acute posthemorrhagic anemia] Onset: 5 02-17-2025 Episodic Aspiration pneumonitis; food/vomitus (15 sources) Aspiration pneumonia; Translations: [Pneumonitis due to inhalation of food and vomit] Onset: 5 02-17-2025 Episodic Chronic kidney disease (20 sources) Chronic kidney disease stage 3; Translations: [Chronic kidney disease, Stage III (moderate)] 09-01-2023 Chronic Chronic kidney disease (2 sources) Chronic kidney disease; Translations: [Chronic kidney disease, stage 3b] Onset: 5 Chronic ulcer of skin (20 sources) Ulcer of lower extremity; Translations: [Non-pressure chronic ulcer of unspecified part of unspecified lower leg with unspecified severity] Onset: 5 Chronic Complication of device; implant or graft (16 sources) Catheter-associated urinary tract infection; Translations: [Infection and inflammatory reaction due to indwelling urethral catheter, initial encounter] Onset: 5 02-28-2025 Episodic Diabetes mellitus with complications (20 sources) Diabetes mellitus; Translations: [Type 2 diabetes mellitus with diabetic chronic kidney disease] Onset: 5 09-01-2023 Chronic Comment on above: A1c on recent out of office laboratory screening = 6.1 A1c on recent out of office laboratory screening = 6.3 (November 2024) Diabetes mellitus without complication (20 sources) Type 2 diabetes mellitus without complications; Translations: [Diabetes mellitus] Onset: 8 02-15-2025 Chronic Comment on above: ON MED Diseases of white blood cells (15 sources) Neutrophilia; Translations: [Other elevated white blood cell count] Onset: 5 02-27-2025 Chronic Disorders of lipid metabolism (20 sources) Hyperlipidemia; Translations: [Hyperlipidemia, unspecified] 09-01-2023 Chronic Diverticulosis and diverticulitis (16 sources) Diverticular disease; Translations: [Diverticulosis of intestine, part unspecified, without perforation or abscess without bleeding] Onset: 5 02-28-2025 Chronic Comment on above: Incidental finding o n CT scan of the abdomen. Esophageal disorders (16 sources) Erosive esophagitis; Translations: [Ulcer of esophagus without bleeding] Onset: 5 02-17-2025 Chronic Essential hypertension (20 sources) Hypertensive disorder; Translations: [Essential (primary) hypertension] 09-01-2023 Chronic Fluid and electrolyte disorders (16 sources) Dehydration; Translations: [Dehydration] Onset: 5 02-28-2025 Episodic Gastrointestinal hemorrhage (20 sources) Coffee ground vomiting; Translations: [Hematemesis] Onset: 5 02-15-2025 Episodic Genitourinary symptoms and ill-defined conditions (18 sources) Retention of urine; Translations: [Retention of urine, unspecified] Onset: 5 02-17-2025 Episodic Hyperplasia of prostate (20 sources) Large prostate ; Translations: [Benign prostatic hyperplasia without lower urinary tract symptoms] Onset: 5 02-17-2025 Chronic Malaise and fatigue (16 sources) Asthenia; Translations: [Other malaise] Onset: 5 02-17-2025 Episodic Nephritis; nephrosis; renal sclerosis (16 sources) Atrophy of right kidney; Translations: [Atrophy of kidney (terminal)] Onset: 5 02-28-2025 Chronic Osteoarthritis (20 sources) Unilateral primary osteoarthritis, left hip; Translations: [Osteoarthritis of left hip joint] Onset: 4 01-13-2025 Chronic Other aftercare (16 sources) Post-discharge follow-up; Translations: [Encounter for follow-up examination after completed treatment for conditions other than malignant neoplasm] 03-10-2025 Episodic Other circulatory disease (14 sources) Orthostatic hypotension; Translations: [Orthostatic hypotension] 02-28-2025 Episodic Other circulatory disease (2 sources) Orthostatic hypotension; Translations: [Orthostatic hypotension] Onset: 5 Episodic Other connective tissue disease (20 sources) History of repair of hip joint; Translations: [Presence of left artificial hip joint] 02-14-2025 Chronic Comment on above: 02/14/[address] Abbey lazaro Other connective tissue disease (20 sources) History of total hip arthroplasty; Translations: [Presence of left artificial hip joint] 02-17-2025 Chronic Other connective tissue disease (2 sources) Presence of left artificial hip joint; Translations: [Presence of left artificial hip joint] Onset: Chronic Other connective tissue disease (2 sources) Paraparesis; Translations: [Other symptoms and signs involving the musculoskeletal system] 09-01-2023 Episodic Other connective tissue disease (20 sources) Other symptoms and signs involving the musculoskeletal system; Translations: [Other musculoskeletal symptoms referable to limbs] 09-01-2023 Episodic Other connective tissue disease (18 sources) Trochanteric bursitis; Translations: [Trochanteric bursitis, left hip] 01-13-2025 Episodic Other diseases of veins and lymphatics (20 sources) Stasis dermatitis; Translations: [Venous insufficiency (chronic) (peripheral)] 09-01-2023 Episodic Other diseases of veins and lymphatics (4 sources) Peripheral venous insufficiency; Translations: [Venous insufficiency (chronic) (peripheral)] 04-18-2025 Episodic Other diseases of veins and lymphatics (2 sources) Venous insufficiency (chronic) (peripheral); Translations: [Venous insufficiency (chronic) (peripheral)] Onset: 5 Episodic Other nervous system disorders (15 sources) Acute postoperative pain; Translations: [Other acute postprocedural pain] 02-16-2025 Episodic Other nervous system disorders (1 source) Other acute postprocedural pain; Translations: [Other acute postprocedural pain] Onset: 5 Episodic Other non-epithelial cancer of skin (20 sources) Squamous cell carcinoma of nose; Translations: [Squamous cell carcinoma of skin of nose] 09-01-2023 Episodic Other nutritional; endocrine; and metabolic disorders (1 source) Homocystinuria; 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] Onset: 8 Chronic Other nutritional; endocrine; and metabolic disorders (14 sources) Morbid obesity; Translations: [Morbid (severe) obesity due to excess calories] 02-17-2025 Chronic Other nutritional; endocrine; and metabolic disorders (1 source) Morbid (severe) obesity due to excess calories; Translations: [Morbid (severe) obesity due to excess calories] Onset: 5 Chronic Other skin disorders (20 sources) Nodule of skin of chest; Translations: [Localized swelling, mass and lump, trunk] 09-01-2023 Episodic Other skin disorders (20 sources) Lesion of skin of face; Translations: [Disorder of the skin and subcutaneous tissue, unspecified] 05-23-2022 Episodic Peripheral and visceral atherosclerosis (4 sources) Vascular disorder of lower extremity; Translations: [Chronic total occlusion of artery of the extremities] Onset: 5 03-27-2025 Chronic Phlebitis; thrombophlebitis and thromboembolism (20 sources) Acute deep vein thrombosis of lower limb; Translations: [Acute embolism and thrombosis of unspecified deep veins of unspecified lower extremity] Onset: 5 02-28-2025 Episodic Comment on above: Left gastrocnemius v ein Right great saphenou s vein distal to the knee on the right Pulmonary heart disease (15 sources) Pulmonary embolism; Translations: [Other pulmonary embolism without acute cor pulmonale] Onset: 5 02-17-2025 Episodic Comment on above: 2013 POSTOP HIP. Tel ls me that several family members have had blood clots.....inherited coagulation disorder? Residual codes; unclassified (14 sources) Finding related to sleep; Translations: [Sleep apnea, unspecified] 02-28-2025 Chronic Comment on above: Hypoxemia with desat uration events greater than 60 seconds while sleeping Residual codes; unclassified (7 sources) Obstructive sleep apnea syndrome; Translations: [Obstructive sleep apnea (adult) (pediatric)] 02-28-2025 Chronic Residual codes; unclassified (16 sources) Sleep apnea; Translations: [Sleep apnea, unspecified] 03-10-2025 Chronic Residual codes; unclassified (2 sources) Sleep apnea, unspecified; Translations: [Sleep apnea, unspecified] Onset: 5 Chronic Residual codes; unclassified (1 source) Obstructive sleep apnea (adult) (pediatric); Translations: [Obstructive sleep apnea (adult) (pediatric)] Onset: 5 Chronic Residual codes; unclassified (4 sources) Bilateral lower limb edema; Translations: [Localized edema] 04-18-2025 Episodic Residual codes; unclassified (2 sources) Localized edema; Translations: [Localized edema] Onset: Episodic Respiratory failure; insufficiency; arrest (adult) (20 sources) Acute hypercapnic respiratory failure; Translations: [Acute respiratory failure with hypercapnia] Onset: 5 02-14-2025 Episodic Spondylosis; intervertebral disc disorders; other back problems (18 sources) Lumbar spondylosis; Translations: [Spondylosis without myelopathy or radiculopathy, lumbar region] 01-13-2025 Chronic Spondylosis; intervertebral disc disorders; other back problems (17 sources) Lumbar radiculitis; Translations: [Radiculopathy, lumbar region] Onset: 5 02-16-2025 Episodic Substance-related disorders (15 sources) Tobacco dependence in remission; Translations: [Nicotine dependence, unspecified, in remission] Onset: 5 02-17-2025 Chronic Comment on above: started smoking at [age] YOA and quit at 51 YOA Unclassified (2 sources) Pure hypercholesterolemia, unspecified; Translations: [Pure hypercholesterolemia, unspecified] Onset: Unclassified (20 sources) Follow up for multiple chronic conditions - The patient is here for follow-up of diabetes, hypertension (been taking natural supplements for high blood pressure instead of prescription meds) and other condition(s) (CKD). The patient usually takes the prescribed medications. No side effects noted. The patient has low activity level and no regular exercise program. The patient's glucose levels are monitored daily (FBS this morning 89), out of office blood pressure checks occur frequently (this morning was 137/65) and dietary compliance is fairly good usually adhering to recommendations. The patient states that there is no recent angina or dyspnea, there are no vision changes or weakness (no eye exam in the past year), weight has decreased (13lbs since DAVID) and they do not have headaches. Note for Multiple chronic conditions follow-up: Would like to have redness looked at on his right lower leg, been there for the past couple of years and is not improving. Denies drainage from the site or causing pain.Brought a copy of recent lab results with him today. Patient feels that his legs feel weak. Has trouble standing for a period of time.Unable to give urine sample today for P:C ratio. 04-14-2023 Unclassified (20 sources) Follow up for multiple chronic conditions - The patient is here for follow-up of chronic kidney disease, diabetes and hypertension. The patient always takes the prescribed medications. No side effects noted. The patient has low activity level and no regular exercise program. The patient's glucose levels are monitored several time(s) per day, out of office blood pressure checks occur frequently and dietary compliance is fairly good usually adhering to recommendations. The patient states that there are no vision changes or weakness, weight has decreased and they do not have headaches. Note for Multiple chronic conditions follow-up: PT wants refill on his glipizide wants more refills if he can get them.Pt want to talk to Kerwin about the A1c and urine PC ratio did not want me to do them. 08-06-2022 Unclassified (20 sources) Follow up for multiple chronic conditions - The patient is here for follow-up of diabetes. The patient always takes the prescribed medications. No side effects noted. The patient has an active lifestyle but no regular exercise program (walks allot). The patient's glucose levels are monitored several time(s) per week (2x week) and out of office blood pressure checks occur rarely (sometimes). The patient states that there is no recent angina or dyspnea, there are no vision changes or weakness and they do not have headaches. 02-04-2022 Unclassified (17 sources) Pre-operative clearance - Surgical procedure(s) planned: other ((L) arthroplasty robotic assisted). Date of procedure: (02/14/25) Surgeon: (Dr. Galindo) and Location of procedure: ([facility]) There have been no problems with general anesthesia or blood/blood products. Note for Pre-operative clearance: Patient has had blood work and is having imaging done prior to surgery. 01-25-2025 Unclassified (6 sources) Follow up from hospital stay - Name of Hospital: [facility]. Date of Admission: 02/17/25. Date of Discharge: 02/28/25. The patient was hospitalized for orthopedic procedure ((L) hip replacement). New medications include eliquis 2.5mg BID. Patient did not have any consultations ordered while in the hospital. Post hospital therapies ordered include physical therapy. Patient was discharged to home. Current Symptoms: muscle pain. Note for Follow up from hospital stay: Patient had (L) hip fracture. Patient had surgery for (L) hip replacement on 02/14/25. Patient was noted to have a DVT on 02/27/25. Patient was admitted to ICU and started on eliquis. Patient underwent OT and PT during rehabilitation stay. Patient here today for follow up. 03-10-2025 Unclassified (6 sources) [ADDITIONAL REASON] Transition into care - The patient is transitioning into care from a hospital ([facility]) and a summary of care was reviewed. 03-10-2025 Unclassified (2 sources) Transition into care - The patient is transitioning into care from a hospital ([facility]) and a summary of care was reviewed. 03-10-2025 Unclassified (2 sources) [ADDITIONAL REASON] Follow up from hospital stay - Name of Hospital: [facility]. Date of Admission: 02/17/25. Date of Discharge: 02/28/25. The patient was hospitalized for orthopedic procedure ((L) hip replacement). New medications include eliquis 2.5mg BID. Patient did not have any consultations ordered while in the hospital. Post hospital therapies ordered include physical therapy. Patient was discharged to home. Current Symptoms: muscle pain. Note for Follow up from hospital stay: Patient had (L) hip fracture. Patient had surgery for (L) hip replacement on 02/14/25. Patient was noted to have a DVT on 02/27/25. Patient was admitted to ICU and started on eliquis. Patient underwent OT and PT during rehabilitation stay. Patient here today for follow up. 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 Unclassified (2 sources) Acute embolism and thrombosis of left calf muscular vein; Translations: [Acute embolism and thrombosis of left calf muscular vein] Onset: 5 Unclassified (1 source) Low back pain, unspecified; Translations: [Low back pain, unspecified] Onset: 5 Urinary tract infections (2 sources) Urinary tract infection, site not specified; Translations: [Urinary tract infection, site not specified] Onset: 5 Episodic Varicose veins of lower extremity (16 sources) 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 It has been increasing in size. The lesion is characterized as raised above the skin. Note for Skin lesion: soft area noted on chest. Denies pain/discomfort. Denies changes in overlying skin and history of similar lesions. 09-01-2023 Unclassified (20 sources) Hypertension - The onset of the hypertension has been acute. The hypertension has been occurring in an episodic pattern for 1 week. The course has been constant. The JNC classification is Stage 2 hypertension - >=160 or >=100 (patient states it has been as high as 200 and then another time it is 112) The symptoms do not include chest pain, dyspnea on exertion, edema, fatigue, headache, palpitations, visual changes or shortness of breath. Habits include sedentary lifestyle (patient reports that he walks some but not enough). The patient's medical history includes diabetes mellitus. 09-12-2022 Unclassified (20 sources) Change in a mole - The change in the mole appeared gradually and has been present for 6 weeks. The mole has been decreasing in size (pt has been putting oregano oil on it and this has made it shrink in size). The mole is characterized as red, brown and crusty. The mole is located over the face (under eye, left side of nose). There has been no associated chills, fatigue, fever, itching, loss of sensation or mucous membrane lesions. Note for Change in the mole: pt said when he puts the oregano oil on it, it makes it soft and he does pick at itnot painful or tender( at [facility] you put pt on losartan he took a few pills then quit, said his bp at home is good 150/75-80, he says thats good for him) 05-23-2022 Unclassified (1 source) Follow up from hospital stay - Name of Hospital: [facility]. Date of Admission: 02/17/2025. Date of Discharge: 02/28/2025. The patient was hospitalized for hip surgery. 03-08-2025 Unclassified (1 source) [ADDITIONAL REASON] Transition into care 03-08-2025 Results Test Name Value Interpretation Reference Range Facility Arterial study reportOrdered By: Ty Hammond on 04-13-2025 Noninvasive arteriosclerosis study report [facility] Cardiovascular Services [address] [place] [address] Lower Ext Art Exam w/o Exercis 04/13/25 1057 MR#: [id number] Acct: [id number] Name: JEREMIAH VILLA Rep #:[id number] : 1945 79 From: Ty Shen Attending Dr: Dr. Jasper Reece MD Status: REG CLI Ordering Dr: Jasper Reece MD Date: Location: [facility] Sex: M C Admitted: Reason For Study Reason For Study: RLE Wound Procedure A bilateral lower extremity continuous wave Doppler with analog waveform analysis,segmental pressures,and ankle brachial indexes without exercise. Left Segmental Pressures Left brachial= 148mmHg. Left posterior tibial artery = 174mmHg. Left dorsalis pedis artery = 163mmHg. Left digit = 121 mmHg. The left posterior tibial artery waveforms are biphasic. The left dorsalispedis waveforms are triphasic. Right Segmental Pressures Right brachial= 159mmHg. Right posterior tibial artery = 123mmHg. Right dorsalispedis artery = 179mmHg. Right digit = 77 mmHg. The right posterior tibial artery waveforms are biphasic. The right dorsalis pedis waveforms are triphasic. Indices The right ankle brachial index by the posterior tibial artery is 0.77. The rightankle brachial index by the dorsalis pedis is 1.13. The right digital-brachial index is 0.48. The left ankle brachialindex by the posterior tibial artery is 1.09. The left ankle brachial index by the dorsalis pedis is 1.03. The left digital-brachial index is 0.76. VL/Lower Ext Art Exam w/o Exercis Interpretation Summary Right DAISY 1.13, normal. Doppler/PVR waveforms of the right leg normal at rest. TBI diminished, pedal/digit disease vs spasm. Left DAISY 1.09, normal. TBI and Doppler/PVR waveforms of the left leg normal at rest. Ordering Physician: Jasper Reece Referring Physician: Kerwin Hugo Performed By: Gurmeet Badillo Yesy 04/13/25 1416 Date _ Ty Hammond MD CC: Dr. Jasper Reece MD; PRISCILLA Almanzar ~ Date Dictated: 04/13/25 1057 Date Transcribed: 04/13/25 141 Referral Clerk: Signed [facility] Work Phone: Lower Ext Art Exam w/o Exerc lakisha 04-13-2025 Lower Ext Art Exam w/o Exercis Normal [facility] Wound Ctr History AND Physic theresa 04-13-2025 Wound Ctr History & Physical Normal [facility] HIP, UNI W/ Pelvis 2-3 Views on 03-27-2025 HIP, UNI W/ Pelvis 2-3 Views Normal [facility] Orthopedic Visit Reporton Orthopedic Visit Report Normal [facility] Wound Ctr History AND Physic theresa 03-27-2025 Wound Ctr History & Physical Normal [facility] Venous Duplex US - Jose Luis Extre mon 03-21-2025 Venous Duplex US - Jose Luis Extrem Normal [facility] Venous duplex ultrasound rep ortOrdered By: Ty Hammond on 03-21-2025 US Vein [facility] Cardiovascular Services [address] [place] [address] Venous Duplex US - Jose Luis Extrem 03/21/25 1009 MR#: [id number] Acct: [id number] Name: JEREMIAH VILLA Rep #:[id number] : 1945 79 From: Ty Shen Attending Dr: Dr. Asia Dodd, Status: REG CLI Ordering Dr: Asia Dodd DO Date: 03/21/25 Location: [facility] Sex: M C Admitted: Reason For Study Reason For Study: Bilateral leg swellig RIGHT LEFT CFV is compressible, spontaneous, phasic, competent GSV is normal. and demonstrates normal augmentation. CFV is compressible, spontaneous, phasic, competent, FV is compressible, spontaneous, phasic, competent and and demonstrates normal augmentation. demonstrates normal augmentation. FV is compressible, spontaneous, phasic, competent POP V is compressible, spontaneous, phasic, competent and demonstrates normal augmentation. and demonstrates normal augmentation. POP V is compressible, spontaneous, phasic, competent T/P Trunk is compressible. and demonstrates normal augmentation. PTV is compressible. T/P Trunk is compressible. RT PerV is compressible. PTV is compressible. Rt GSV calf mid to distal is noncompressible, no LT PerV is compressible. significant change as compared to 02/27/2025 GastrocV is partially compressible, with venous flow Remainder of GSV is compressible as compared to 02/27/2025 Very difficult to visualize FV mid/distal and calf Very difficult to visualize FV mid/distal and calf veins due to patient body habitus. veins due to patient body habitus. Procedure This is a venous duplex using B-mode, color flow and spectral Doppler. Exam performed in department. A preliminary report was called and/or faxed to PCP: Oanh WELLS. VL/Venous Duplex US - Jose Luis Extrem Interpretation Summary Acute deep vein thrombosis noted in the left gastrocnemius vein. Similar to previous study with partial thrombus resolution Acute superficial vein thrombosis noted in the right great saphenous vein below the knee. No significant change since previous study. Ordering Physician: Asia Dodd Referring Physician: Kerwin Hugo Performed By: Lindsey Harrington RVT 03/21/25 1326 Date _ Ty Hammond MD CC: Dr. Asia Dodd, DO; PRISCILLA Almanzar ~ Date Dictated: 03/21/25 1009 Date Transcribed: 03/21/25 1326 Referral Clerk: Signed [facility] Work Phone: Urine Cultureon 03-02-2025 URC Normal [facility] Comment on above: Performed By: #### M 100.2200 ####[facility] [address] [place], [place], [address] Bedside Glucoseon 02-28-2025 FINGERSTICK GLU 131 mg/dL High 74-106 [facility] Comment on above: Result Comment: GLORIA HUANG OF PATIENT CARE PER NURSING PROTOCOL Performed By: #### L 501.080 ####[facility] [address] [place], [place], [address] FINGERSTICK GLU 129 mg/dL High 74-106 [facility] Comment on above: Result Comment: GLORIA GEMENT OF PATIENT CARE PER NURSING PROTOCOL Performed By: #### L 501.080 ####[facility] [address] [place], [address] FINGERSTICK GLU 137 mg/dL High 74-106 [facility] Comment on above: Result Comment: GLORIA GEMENT OF PATIENT CARE PER NURSING PROTOCOL Performed By: #### L 501.080 ####[facility] [address] [place], [address] [facility] deOrdered By: Asia Dodd on 02-28-2025 Glucose [Mass/Vol] 131 mg/dL High 74-106 [facility] Comment on above: MANAGEMENT OF PATIEN T CARE PER NURSING PROTOCOL Venous duplex ultrasound rep ortOrdered By: Ty Hammond on 02-28-2025 US Vein [facility] Cardiovascular Services [address] [place] [address] Venous Duplex US - Jose Luis Extrem 02/27/25 1316 MR#: [id number] Acct: [id number] Name: JEREMIAH VILLA Rep #:[id number] : 1945 79 From: Ty Shen Attending Dr: Dr. Asia Dodd, Status: ADM IN Ordering Dr: Asia Dodd DO Date: 02/27/25 Location: Sex: M C Admitted: 02/17/25 Reason For Study Reason For Study: Swelling BLE RIGHT LEFT CFV is compressible, spontaneous, phasic, competent GSV is normal. and demonstrates normal augmentation. CFV is compressible, spontaneous, phasic, competent, FV is compressible, spontaneous, phasic, competent and demonstrates normal augmentation. and demonstrates normal augmentation. FV is compressible, spontaneous, phasic, competent POP V is compressible, spontaneous, phasic, competent and demonstrates normal augmentation. and demonstrates normal augmentation. POP V is compressible, spontaneous, phasic, competent T/P Trunk is compressible. and demonstrates normal augmentation. PTV is compressible. T/P Trunk is compressible. RT PerV is compressible. PTV is compressible. Rt calf GSV is DILATED and NON COMPRESSIBLE LT PerV is compressible. consistent with acute SVT Lt GastrocV isDILATED and NON COMPRESSIBLE Rt thigh GSV is compressible consistent with acute DVT Very difficult to visualize FV mid/distal and calf Very difficultto visualize FV mid/distal and calf veins due to patient body habitus. veins due to patient body habitus. Procedure This is a venous duplex using B-mode, color flow and spectral Doppler. Exam performed portable in patient room. The study was technically difficult. A preliminary report was called and/or faxed to Dr. Dodd. VL/Venous Duplex US - Jose Luis Extrem Interpretation Summary Acute deep vein thrombosis noted in the left gastrocnemius vein. Acute superficial vein thrombosis noted in the right great saphenous vein below the knee. Ordering Physician: Asia Dodd Referring Physician: Kerwin Hugo Performed By: Jessica Rm, ALEKSANDER, RVT 02/28/25 1008 Date _ Ty Hammond MD CC: Dr. Asia Dodd, DO; PRISCILLA Almanzar ~ Date Dictated: 02/27/25 1316 Date Transcribed: 02/28/25 1008 Referral Clerk: Signed [facility] Work Phone: Absolute lymphocyte countOrd ered By: Asia Dodd on 02-27-2025 Lymphocytes Auto (Unsp spec) [#/Vol] 1.15 10*3/uL 0.83-4.51 [facility] Absolute neutrophil countOrd ered By: Asia Dodd on 02-27-2025 Neutrophils (Bld) [#/Vol] 12.7 10*3/uL High 2.0-7.7 [facility] Anion gap in Serum or Plasma Ordered By: Asia Dodd on 02-27-2025 Anion gap [Moles/Vol] 10 mmol/L 5-15 [facility] Automated lymphocyte count a s percentage of total leukocytesOrdered By: Asia Dodd on 02-27-2025 Lymphocytes/100 WBC Auto (Unsp spec) 7.5 % Low 19-41 [facility] BUN/creatinine ratioOrdered By: Asia Alcalawillian on 02-27-2025 Urea nitrogen/Creatinine [Mass ratio] 20.9 mg/mg High 10-20 [facility] Basic Metabolic Profile (BMP )on 02-27-2025 BUN/CRE 20.9 RATIO High 06-19 [facility] Comment on above: Performed By: #### L 100.0600, L500.2500 ####[facility] [address] [place], [address] Calcium [Mass/Vol] 9.1 mg/dL Normal 7.6-11.0 [facility] Comment on above: Performed By: #### L 100.0600, L500.2500 ####[facility] [address] [place], [address] Chloride [Moles/Vol] 102 mmol/L Normal 98-108 [facility] Comment on above: Performed By: #### L 100.0600, L500.2500 ####[facility] [address] [place], [address] CO2 [Moles/Vol] 24.2 mmol/L Normal 21.0-32.0 [facility] Comment on above: Performed By: #### L 100.0600, L500.2500 ####[facility] [address] [place], [address] Creatinine [Mass/Vol] 1.47 mg/dL High 0.70-1.20 [facility] Comment on above: Performed By: #### L 100.0600, L500.2500 ####[facility] [address] [place], [address] ECRCL 56.67 ml/min Normal 50-250 [facility] Comment on above: Performed By: #### L 100.0600, L500.2500 ####[facility] [address] [place], [address] GAP 10 Normal 5-15 [facility] Comment on above: Performed By: #### L 100.0600, L500.2500 ####[facility] [address] [place], [address] GFR/1.73 sq M.predicted among non-blacks MDRD (S/P/Bld) [Vol rate/Area] 49 mL/min/{1.73_m2} Low >60 [facility] Comment on above: Result Comment: mL/m in/1.73m2 CKD-EPI Creatinine Equation (2020) Performed By: #### L 100.0600, L500.2500 ####[facility] [address] [place], [address] Glucose [Mass/Vol] 169 mg/dL High 70-99 [facility] Comment on above: Performed By: #### L 100.0600, L500.2500 ####[facility] [address] [place], [address] Potassium [Moles/Vol] 4.6 mmol/L Normal 3.3-5.1 [facility] Comment on above: Performed By: #### L 100.0600, L500.2500 ####[facility] [address] [place], [address] Sodium [Moles/Vol] 136 mmol/L Normal 133-145 [facility] Comment on above: Performed By: #### L 100.0600, L500.2500 ####[facility] [address] [place], [address] Urea nitrogen [Mass/Vol] 31 mg/dL High 4-19 [facility] Comment on above: Performed By: #### L 100.0600, L500.2500 ####[facility] [address] [place], [address] Basophil percentageOrdered B y: Asai Dodd on 02-27-2025 Basophils/100 WBC (Bld) 0.5 % 0-1 [facility] Bedside Glucoseon 02-27-2025 FINGERSTICK GLU 202 mg/dL High 74-106 [facility] Comment on above: Result Comment: GLORIA GEMENT OF PATIENT CARE PER NURSING PROTOCOL Performed By: #### L 501.080 ####[facility] [address] [place], [address] FINGERSTICK GLU 145 mg/dL High 74-106 [facility] Comment on above: Result Comment: GLORIA GEMENT OF PATIENT CARE PER NURSING PROTOCOL Performed By: #### L 501.080 ####[facility] [address] [place], [address] FINGERSTICK GLU 144 mg/dL High 74-106 [facility] Comment on above: Result Comment: GLORIA GEMENT OF PATIENT CARE PER NURSING PROTOCOL Performed By: #### L 501.080 ####[facility] [address] [place], [address] FINGERSTICK GLU 168 mg/dL High 74-106 [facility] Comment on above: Result Comment: GLORIA GEMENT OF PATIENT CARE PER NURSING PROTOCOL Performed By: #### L 501.080 ####[facility] [address] [place], [address] Bilirubin Test strip Ql (U)O rdered By: Asia Dodd on 02-27-2025 Bilirubin Ql (U) Negative Negative [facility] CBC W/Diff, Automatedon 01-31 0 Absolute Lymph 1.15 X10 3/uL Normal 0.83-4.51 [facility] Comment on above: Performed By: #### L 100.0100 ####[facility] [address] [place], [address] Absolute Neut 12.7 X10 3/uL High 2.0-7.7 [facility] Comment on above: Performed By: #### L 100.0100 ####[facility] [address] [place], [address] Basophils/100 WBC (Bld) 0.5 % Normal 0-1 [facility] Comment on above: Performed By: #### L 100.0100 ####[facility] [address] [place], [address] Eosinophils/100 WBC (Bld) 0.9 % Normal 0-5 [facility] Comment on above: Performed By: #### L 100.0100 ####[facility] [address] [place], [address] Erythrocyte distribution width (RBC) [Ratio] 13.4 % Normal 11.6-14.6 [facility] Comment on above: Performed By: #### L 100.0100 ####[facility] [address] [place], [address] Hematocrit (Bld) [Volume fraction] 31.6 % Low 40-54 [facility] Comment on above: Performed By: #### L 100.0100 ####[facility] [address] [place], [address] Hemoglobin (Bld) [Mass/Vol] 10.4 g/dL Low 13.0-16.5 [facility] Comment on above: Performed By: #### L 100.0100 ####[facility] [address] [place], [address] IG% 1.000 High 0.0-0.9 [facility] Comment on above: Result Comment: IG% - Immature Granulocytes (promyelocytes, myelocytes andmetamyelocytes) > 1% indicates that a LEFT SHIFT is Present. Performed By: #### L 100.0100 ####[facility] [address] [place], [address] Lymphocytes/100 WBC (Bld) 7.5 % Low 19-41 [facility] Comment on above: Performed By: #### L 100.0100 ####[facility] [address] [place], [address] MCH (RBC) [Entitic mass] 31.0 pg Normal 27.0-32.0 [facility] Comment on above: Performed By: #### L 100.0100 ####[facility] [address] [place], [address] MCHC (RBC) [Mass/Vol] 32.9 g/dL Normal 32-36 [facility] Comment on above: Performed By: #### L 100.0100 ####[facility] [address] [place], [address] MCV (RBC) [Entitic vol] 94.3 fL High 80-94 [facility] Comment on above: Performed By: #### L 100.0100 ####[facility] [address] [place], [address] Monocytes/100 WBC (Bld) 6.9 % Normal 0-10 [facility] Comment on above: Performed By: #### L 100.0100 ####[facility] [address] [place], [address] Neutrophils/100 WBC (Bld) 83.2 % High 47-70 [facility] Comment on above: Performed By: #### L 100.0100 ####[facility] [address] [place], [address] Nucleated RBC (Bld) [#/Vol] 0 10*3/uL Normal 0-5 [facility] Comment on above: Performed By: #### L 100.0100 ####[facility] [address] [place], [address] Platelet mean volume (Bld) [Entitic vol] 8.9 fL Normal 6.2-12.0 [facility] Comment on above: Performed By: #### L 100.0100 ####[facility] [address] [place], [address] Platelets (Bld) [#/Vol] 406 10*3/uL Normal 150-450 [facility] Comment on above: Performed By: #### L 100.0100 ####[facility] [address] [place], [address] RBC (Bld) [#/Vol] 3.35 10*6/uL Low 4.6-6.2 [facility] Comment on above: Performed By: #### L 100.0100 ####[facility] [address] [place], [address] RDW SD 46.3 fl High 35.1-43.9 [facility] Comment on above: Performed By: #### L 100.0100 ####[facility] [address] [place], [address] WBC (Bld) [#/Vol] 15.3 10*3/uL High 4.4-11.0 [facility] Comment on above: Performed By: #### L 100.0100 ####[facility] [address] [place], [address] Carbon dioxide, total [Moles /volume] in Central venous bloodOrdered By: Asia Dodd on 02-27-2025 CO2 [Moles/Vol] 24.2 mmol/L 21.0-32.0 [facility] Chloride assayOrdered By: Tomas Dodd on 02-27-2025 Chloride [Moles/Vol] 102 mmol/L 98-108 [facility] Discharge Instructionon 01-31 Discharge Instruction Normal [facility] Eosinophil percentageOrdered By: Asia Ju on 02-27-2025 Eosinophils/100 WBC (Bld) 0.9 % 0-5 [facility] Erythrocyte distribution wid th ratioOrdered By: Asia Dodd on 02-27-2025 Erythrocyte distribution width (RBC) [Ratio] 13.4 % 11.6-14.6 [facility] Erythrocyte distribution wid th standard deviationOrdered By: Asia Dodd on 02-27-2025 Erythrocyte distribution width (RBC) [Ratio] 46.3 fl High 35.1-43.9 [facility] Glomerular filtration rate ( GFR) estimation/1.73 sq m using serum, plasma, or whole bOrdered By: Asia Dodd on 02-27-2025 GFR/1.73 sq M.predicted among non-blacks MDRD (S/P/Bld) [Vol rate/Area] 49 mL/min/{1.73_m2} Low >60 [facility] Comment on above: mL/min/1.73m2 CKD-EP I Creatinine Equation (2020) HH, Hemoglobin AND Hematocri ton 02-27-2025 Hematocrit (Bld) [Volume fraction] 31.2 % Low 40-54 [facility] Comment on above: Performed By: #### L 100.0600, L500.2500 ####[facility] [address] [facility] [place], [address] Hemoglobin (Bld) [Mass/Vol] 10.3 g/dL Low 13.0-16.5 [facility] Comment on above: Performed By: #### L 100.0600, L500.2500 ####[facility] [address] [place], [address] Hematocrit Auto (Bld) [Volum e fraction]Ordered By: Asia Dodd on 02-27-2025 Hematocrit (Bld) [Volume fraction] 31.6 % Low 40-54 [facility] Hemoglobin measurementOrdere d By: Asia Dodd on 02-27-2025 Hemoglobin (Bld) [Mass/Vol] 10.4 g/dL Low 13.0-16.5 [facility] Immature granulocytes/100 WB C Auto (Bld)Ordered By: Asia Dodd on 02-27-2025 Immature granulocytes/100 WBC (Bld) 1.000 % High 0.0-0.9 [facility] Comment on above: IG% - Immature Granu locytes (promyelocytes, myelocytes and metamyelocytes) > 1% indicates that a LEFT SHIFT is Present. Ketones Test strip Ql (U)Ord ered By: Asia Dodd on 02-27-2025 Ketones Ql (U) Negative Negative [facility] MCV (mean corpuscular volume ) determinationOrdered By: Asia Dodd on 02-27-2025 MCV (RBC) [Entitic vol] 94.3 fL High 80-94 [facility] Mean corpuscular hemoglobin (MCH) determinationOrdered By: Asia Dodd on 02-27-2025 MCH (RBC) [Entitic mass] 31.0 pg 27.0-32.0 [facility] Mean corpuscular hemoglobin concentration (MCHC) determinationOrdered By: Asia Dodd on 02-27-2025 MCHC (RBC) [Mass/Vol] 32.9 g/dL 32-36 [facility] Mean platelet volume determi nationOrdered By: Asia Dodd on 02-27-2025 Platelet mean volume (Bld) [Entitic vol] 8.9 fL 6.2-12.0 [facility] Microscopic analysis of urin e for red blood cells (RBC)Ordered By: Asia Dodd on 02-27-2025 Microscopic analysis of urine for red blood cells (RBC) 0-5 SEEN /hpf 0-5 [facility] Monocyte percentageOrdered B y: Asia Dodd on 02-27-2025 Monocytes/100 WBC (Bld) 6.9 % 0-10 [facility] Mucus LM Ql (Urine sed)Order ed By: Asia Dodd on 02-27-2025 Mucus Ql (Urine sed) 0 SEEN /hpf [facility] Neutrophil percentageOrdered By: Asia Dodd on 02-27-2025 Neutrophils/100 WBC (Bld) 83.2 % High 47-70 [facility] Nitrite Test strip Ql (U)Ord ered By: Asia Dodd on 02-27-2025 Nitrite Ql (U) Negative Negative [facility] Nucleated red blood cell per centageOrdered By: Asia Ju on 02-27-2025 Nucleated RBC/100 WBC (Bld) [Ratio] 0 % 0-5 [facility] Platelet countOrdered By: Tomas combs Ju on 02-27-2025 Platelets (Bld) [#/Vol] 406 10*3/uL 150-450 [facility] Potassium measurement (mass/ volume)Ordered By: Asia Dodd on 02-27-2025 Potassium (Unsp spec) [Mass/Vol] 4.6 mmol/L 3.3-5.1 [facility] Protein Test strip Ql (U)Ord ered By: Asia Ju on 02-27-2025 Protein Ql (U) 30 mg/dl High Negative [facility] RBC Auto (Bld) [#/Vol]Ordere d By: Asia Ju on 02-27-2025 RBC (Bld) [#/Vol] 3.35 10*6/uL Low 4.6-6.2 [facility] Serum creatinine measurement (mass/volume)Ordered By: Asia Dodd on 02-27-2025 Creatinine [Mass/Vol] 1.47 mg/dL High 0.70-1.20 [facility] Serum glucose measurement (m ass/volume)Ordered By: Asia Dodd on 02-27-2025 Glucose [Mass/Vol] 169 mg/dL High 70-99 [facility] Serum or plasma calcium esperanza urement (mass/volume)Ordered By: Asia Dodd on 02-27-2025 Calcium [Mass/Vol] 9.1 mg/dL 7.6-11.0 [facility] Serum or plasma urea nitroge n measurement (mass/volume)Ordered By: Asia Dodd on 02-27-2025 Urea nitrogen [Mass/Vol] 31 mg/dL High 4-19 [facility] Sodium levelOrdered By: Asia Dodd on 02-27-2025 Sodium [Moles/Vol] 136 mmol/L 133-145 [facility] Squamous epithelial cells de tection in urine sediment by light microscopyOrdered By: Asia Dodd on 02-27-2025 Epithelial cells.squamous LM Ql (Urine sed) 0-5 SEEN /hpf 0-5 [facility] Urinalysis, Completeon 02-27 BACTERIA 1+ /hpf Normal None Seen [facility] Comment on above: Order Comment: CLEAN CATCH Performed By: #### L 400.0001 ####[facility] [address] [place], [address] EPI,SQUAMOUS 0-5 SEEN Normal 0-5 [facility] Comment on above: Order Comment: CLEAN CATCH Performed By: #### L 400.0001 ####[facility] [address] [place], [address] RBC 0-5 SEEN Normal 0-5 [facility] Comment on above: Order Comment: CLEAN CATCH Performed By: #### L 400.0001 ####[facility] [address] [place], [address] WBC >100 SEEN Normal 0-5 [facility] Comment on above: Order Comment: CLEAN CATCH Performed By: #### L 400.0001 ####[facility] [address] [place], [address] Mucus Ql (Urine sed) 0 SEEN Normal [facility] Comment on above: Order Comment: CLEAN CATCH Performed By: #### L 400.0001 ####[facility] [address] [place], [address] Urine clarityOrdered By: Ophelia Dodd on 02-27-2025 Clarity (U) Cloudy Clear [facility] Urine color determinationOrd ered By: Asia Dodd on 02-27-2025 Color (U) Straw Yellow [facility] Urine cultureOrdered By: Ophelia Dodd on 02-27-2025 Bacteria identified Cx Nom (U) Pseudomonas aeruginosa Abnormal [facility] Bacteria identified Cx Nom (U) Negative Abnormal [facility] Urine glucose detectionOrder ed By: Asia Dodd on 02-27-2025 Glucose Ql (U) Normal mg/dl Normal [facility] Urine leukocyte esterase det ection by dipstickOrdered By: Asia Dodd on 02-27-2025 Leukocyte esterase Test strip Ql (U) 500 /ul High Negative [facility] Urine pHOrdered By: Asia saucedo on 02-27-2025 pH (U) 6.0 [pH] 5.0 - 8.0 [facility] Urine sediment bacteria coun t by microscopy (number/high power field)Ordered By: Asia Dodd on 02-27-2025 Bacteria LM.HPF (Urine sed) [#/Area] 1 /[HPF] None Seen [facility] Urine specific gravity measu rementOrdered By: Asia Dodd on 02-27-2025 Specific gravity (U) [Rel density] 1.010 1.002-1.030 [facility] Urine urobilinogen measureme ntOrdered By: Asia Dodd on 02-27-2025 Urobilinogen Ql (U) Normal mg/dl Normal [facility] Venous Duplex US - Jose Luis Extre mon 02-27-2025 Venous Duplex US - Jose Luis Extrem Normal [facility] White blood cell (WBC) count Ordered By: Asia Dodd on 02-27-2025 WBC (Bld) [#/Vol] 15.3 10*3/uL High 4.4-11.0 [facility] White blood cell countOrdere d By: Asia Dodd on 02-27-2025 White blood cell count >100 SEEN /hpf 0-5 [facility] Bedside Glucoseon 02-26-2025 FINGERSTICK GLU 184 mg/dL High [facility]106 [facility] Comment on above: Result Comment: GLORIA GEMENT OF PATIENT CARE PER NURSING PROTOCOL Performed By: #### L 501.080 ####[facility] [address] [place] [address] FINGERSTICK GLU 166 mg/dL High [address] [facility] Comment on above: Result Comment: GLORIA GEMENT OF PATIENT CARE PER NURSING PROTOCOL Performed By: #### L 501.080 ####[facility] [address] [facility] [address] FINGERSTICK GLU 136 mg/dL High [facility]106 [facility] Comment on above: Result Comment: GLORIA GEMENT OF PATIENT CARE PER NURSING PROTOCOL Performed By: #### L 501.080 ####[facility] [address] [place], [address] FINGERSTICK GLU 155 mg/dL High 74-106 [facility] Comment on above: Result Comment: GLORIA GEMENT OF PATIENT CARE PER NURSING PROTOCOL Performed By: #### L 501.080 ####[facility] [address] [place], [address] Bedside Glucoseon 02-25-2025 FINGERSTICK GLU 193 mg/dL High [facility]106 [facility] Comment on above: Result Comment: GLORIA GEMENT OF PATIENT CARE PER NURSING PROTOCOL Performed By: #### L 501.080 ####[facility] [address] [place], [address] FINGERSTICK GLU 147 mg/dL [address] Comment on above: Result Comment: GLORIA GEMENT OF PATIENT CARE PER NURSING PROTOCOL Performed By: #### L 501.080 ####[facility] [address] [place], [address] FINGERSTICK GLU 126 mg/dL High [address] [place] [address] Comment on above: Result Comment: GLORIA GEMENT OF PATIENT CARE PER NURSING PROTOCOL Performed By: #### L 501.080 ####[facility] [address] [place], [address] FINGERSTICK GLU 177 mg/dL [address] Comment on above: Result Comment: GLORIA GEMENT OF PATIENT CARE PER NURSING PROTOCOL Performed By: #### L 501.080 ####[facility] [address] [place], [address] Basic Metabolic Profile (BMP )on 02-24-2025 BUN/CRE 24.7 RATIO High 10-20 [facility] Comment on above: Performed By: #### L 100.0500, L500.2500 ####[facility] [address] [place], [address] Calcium [Mass/Vol] 9.1 mg/dL Normal 7.6-11.0 [facility] Comment on above: Performed By: #### L 100.0500, L500.2500 ####[facility] [address] [place], [address] Chloride [Moles/Vol] 104 mmol/L Normal 98-108 [facility] Comment on above: Performed By: #### L 100.0500, L500.2500 ####[facility] [address] [place], [address] CO2 [Moles/Vol] 24.8 mmol/L Normal 21.0-32.0 [facility] Comment on above: Performed By: #### L 100.0500, L500.2500 ####[facility] [address] [place], [address] Creatinine [Mass/Vol] 1.39 mg/dL High 0.70-1.20 [facility] Comment on above: Performed By: #### L 100.0500, L500.2500 ####[facility] [address] [place], [address] ECRCL 59.93 ml/min Normal 50-250 [facility] Comment on above: Performed By: #### L 100.0500, L500.2500 ####[facility] [address] [place], [address] GAP 8 Normal 5-15 [facility] Comment on above: Performed By: #### L 100.0500, L500.2500 ####[facility] [address] [place], [address] GFR/1.73 sq M.predicted among non-blacks MDRD (S/P/Bld) [Vol rate/Area] 52 mL/min/{1.73_m2} Low >60 [facility] Comment on above: Result Comment: mL/m in/1.73m2 CKD-EPI Creatinine Equation (2020) Performed By: #### L 100.0500, L500.2500 ####[facility] [address] [place], [address] Glucose [Mass/Vol] 164 mg/dL High 70-99 [facility] Comment on above: Performed By: #### L 100.0500, L500.2500 ####[facility] [address] [place], [address] Potassium [Moles/Vol] 4.6 mmol/L Normal 3.3-5.1 [facility] Comment on above: Performed By: #### L 100.0500, L500.2500 ####[facility] [address] [place], [address] Sodium [Moles/Vol] 137 mmol/L Normal 133-145 [facility] Comment on above: Performed By: #### L 100.0500, L500.2500 ####[facility] [address] [place], [address] Urea nitrogen [Mass/Vol] 34 mg/dL High 4-19 [facility] Comment on above: Performed By: #### L 100.0500, L500.2500 ####[facility] [address] [place], [address] Bedside Glucoseon 02-24-2025 FINGERSTICK GLU 149 mg/dL High 74-106 [facility] Comment on above: Result Comment: GLORIA GEMENT OF PATIENT CARE PER NURSING PROTOCOL Performed By: #### L 501.080 ####[facility] [address] [place], [address] FINGERSTICK GLU 158 mg/dL High 74-106 [facility] Comment on above: Result Comment: GLORIA GEMENT OF PATIENT CARE PER NURSING PROTOCOL Performed By: #### L 501.080 ####[facility] [address] [place], [address] FINGERSTICK GLU 145 mg/dL High 74-106 [facility] Comment on above: Result Comment: GLORIA GEMENT OF PATIENT CARE PER NURSING PROTOCOL Performed By: #### L 501.080 ####[facility] [address] [place], [address] FINGERSTICK GLU 164 mg/dL High 74-106 [facility] Comment on above: Result Comment: GLORIA GEMENT OF PATIENT CARE PER NURSING PROTOCOL Performed By: #### L 501.080 ####[facility] [address] [place], [address] CBC-Complete Blood Cnt No Di ffon 02-24-2025 Erythrocyte distribution width (RBC) [Ratio] 13.4 % Normal 11.6-14.6 [facility] Comment on above: Performed By: #### L 100.0500, L500.2500 ####[facility] [address] [place], [address] Hematocrit (Bld) [Volume fraction] 31.4 % Low 40-54 [facility] Comment on above: Performed By: #### L 100.0500, L500.2500 ####[facility] [address] [place], [address] Hemoglobin (Bld) [Mass/Vol] 10.5 g/dL Low 13.0-16.5 [facility] Comment on above: Performed By: #### L 100.0500, L500.2500 ####[facility] [address] [place], [address] MCH (RBC) [Entitic mass] 31.1 pg Normal 27.0-32.0 [facility] Comment on above: Performed By: #### L 100.0500, L500.2500 ####[facility] [address] [place], [address] MCHC (RBC) [Mass/Vol] 33.4 g/dL Normal 32-36 [facility] Comment on above: Performed By: #### L 100.0500, L500.2500 ####[facility] [address] [place], [address] MCV (RBC) [Entitic vol] 92.9 fL Normal 80-94 [facility] Comment on above: Performed By: #### L 100.0500, L500.2500 ####[facility] [address] [place], [address] Platelet mean volume (Bld) [Entitic vol] 9.0 fL Normal 6.2-12.0 [facility] Comment on above: Performed By: #### L 100.0500, L500.2500 ####[facility] [address] [place], [address] Platelets (Bld) [#/Vol] 356 10*3/uL Normal 150-450 [facility] Comment on above: Performed By: #### L 100.0500, L500.2500 ####[facility] [address] [place], [address] RBC (Bld) [#/Vol] 3.38 10*6/uL Low 4.6-6.2 [facility] Comment on above: Performed By: #### L 100.0500, L500.2500 ####[facility] [address] [place], [address] RDW SD 45.7 fl High 35.1-43.9 [facility] Comment on above: Performed By: #### L 100.0500, L500.2500 ####[facility] [address] [place], [address] WBC (Bld) [#/Vol] 10.8 10*3/uL Normal 4.4-11.0 [facility] Comment on above: Performed By: #### L 100.0500, L500.2500 ####[facility] [address] [place], [address] Bedside Glucoseon 02-23-2025 FINGERSTICK GLU 170 mg/dL High -106 [facility] Comment on above: Result Comment: GLORIA GEMENT OF PATIENT CARE PER NURSING PROTOCOL Performed By: #### L 501.080 ####[facility] [address] [place], [address] FINGERSTICK GLU 183 mg/dL High [facility]106 [facility] Comment on above: Result Comment: GLORIA GEMENT OF PATIENT CARE PER NURSING PROTOCOL Performed By: #### L 501.080 ####[facility] [address] [place], [address] FINGERSTICK GLU 144 mg/dL High [address] [place] [address] Comment on above: Result Comment: GLORIA GEMENT OF PATIENT CARE PER NURSING PROTOCOL Performed By: #### L 501.080 ####[facility] [address] [facility] [address] FINGERSTICK GLU 155 mg/dL High [address] [place] [address] Comment on above: Result Comment: GLORIA GEMENT OF PATIENT CARE PER NURSING PROTOCOL Performed By: #### L 501.080 ####[facility] [address] [place], [address] Bedside Glucoseon 02-22-2025 FINGERSTICK GLU 145 mg/dL High [address] [place] [address] Comment on above: Result Comment: GLORIA GEMENT OF PATIENT CARE PER NURSING PROTOCOL Performed By: #### L 501.080 ####[facility] [address] [place], [address] FINGERSTICK GLU 158 mg/dL High [address] [place] [address] Comment on above: Result Comment: GLORIA GEMENT OF PATIENT CARE PER NURSING PROTOCOL Performed By: #### L 501.080 ####[facility] [address] [place], [address] FINGERSTICK GLU 165 mg/dL High [facility]106 [facility] Comment on above: Result Comment: GLORIA GEMENT OF PATIENT CARE PER NURSING PROTOCOL Performed By: #### L 501.080 ####[facility] [address] [place], [address] FINGERSTICK GLU 169 mg/dL High [address] [facility] Comment on above: Result Comment: GLORIA GEMENT OF PATIENT CARE PER NURSING PROTOCOL Performed By: #### L 501.080 ####[facility] [address] [place], [address] Bedside Glucoseon 02-21-2025 FINGERSTICK GLU 233 mg/dL High [address] [place] [address] Comment on above: Result Comment: GLORIA GEMENT OF PATIENT CARE PER NURSING PROTOCOL Performed By: #### L 501.080 ####[facility] [address] [place], [address] FINGERSTICK GLU 216 mg/dL High [address] [place] [address] Comment on above: Result Comment: GLORIA GEMENT OF PATIENT CARE PER NURSING PROTOCOL Performed By: #### L 501.080 ####[facility] [address] [place], [address] FINGERSTICK GLU 167 mg/dL High [facility]106 [facility] Comment on above: Result Comment: GLORIA GEMENT OF PATIENT CARE PER NURSING PROTOCOL Performed By: #### L 501.080 ####[facility] [address] [place], [address] FINGERSTICK GLU 158 mg/dL High [address] [place] [address] Comment on above: Result Comment: GLORIA GEMENT OF PATIENT CARE PER NURSING PROTOCOL Performed By: #### L 501.080 ####[facility] [address] [place], [address] Basic Metabolic Profile (BMP )on 02-20-2025 BUN/CRE 19.4 RATIO Normal 10-20 [facility] Comment on above: Performed By: #### L 500.2500 ####[facility] [address] [place], [address] Calcium [Mass/Vol] 8.8 mg/dL Normal 7.6-11.0 [facility] Comment on above: Performed By: #### L 500.2500 ####[facility] [address] [place] [place], [address] Chloride [Moles/Vol] 105 mmol/L Normal 98-108 [facility] Comment on above: Performed By: #### L 500.2500 ####[facility] [address] [place], [address] CO2 [Moles/Vol] 23.9 mmol/L Normal 21.0-32.0 [facility] Comment on above: Performed By: #### L 500.2500 ####[facility] [address] [place], [address] Creatinine [Mass/Vol] 1.34 mg/dL High 0.70-1.20 [facility] Comment on above: Performed By: #### L 500.2500 ####[facility] [address] [place], [address] ECRCL 60.58 ml/min Normal 50-250 [facility] Comment on above: Performed By: #### L 500.2500 ####[facility] [address] [place], [address] GAP 9 Normal 5-15 [facility] Comment on above: Performed By: #### L 500.2500 ####[facility] [address] [place], [address] GFR/1.73 sq M.predicted among non-blacks MDRD (S/P/Bld) [Vol rate/Area] 54 mL/min/{1.73_m2} Low >60 [facility] Comment on above: Result Comment: mL/m in/1.73m2 CKD-EPI Creatinine Equation (2020) Performed By: #### L 500.2500 ####[facility] [address] [place], [address] Glucose [Mass/Vol] 205 mg/dL High 70-99 [facility] Comment on above: Performed By: #### L 500.2500 ####[facility] [address] [place], [address] Potassium [Moles/Vol] 4.5 mmol/L Normal 3.3-5.1 [facility] Comment on above: Performed By: #### L 500.2500 ####[facility] [address] [place], [address] Sodium [Moles/Vol] 138 mmol/L Normal 133-145 [facility] Comment on above: Performed By: #### L 500.2500 ####[facility] [address] [place], [address] Urea nitrogen [Mass/Vol] 26 mg/dL High 4-19 [facility] Comment on above: Performed By: #### L 500.2500 ####[facility] [address] [place], [address] Bedside Glucoseon 02-20-2025 FINGERSTICK GLU 181 mg/dL High 74-106 [facility] Comment on above: Result Comment: GLORIA GEMENT OF PATIENT CARE PER NURSING PROTOCOL Performed By: #### L 501.080 ####[facility] [address] [place], [address] FINGERSTICK GLU 216 mg/dL High 74-106 [facility] Comment on above: Result Comment: GLORIA GEMENT OF PATIENT CARE PER NURSING PROTOCOL Performed By: #### L 501.080 ####[facility] [address] [place], [address] FINGERSTICK GLU 211 mg/dL High 74-106 [facility] Comment on above: Result Comment: GLORIA GEMENT OF PATIENT CARE PER NURSING PROTOCOL Performed By: #### L 501.080 ####[facility] [address] [place], [address] FINGERSTICK GLU 193 mg/dL High 74-106 [facility] Comment on above: Result Comment: GLROIA HUANG OF PATIENT CARE PER NURSING PROTOCOL Performed By: #### L 501.080 ####[facility] [address] [place], [address] Magnesiumon 02-20-2025 Magnesium [Mass/Vol] 1.9 mg/dL Normal 1.5-2.2 [facility] Comment on above: Performed By: #### L 501.2300, L501.5200 ####[facility] [address] [place], [address] Magnesium measurement (mass/ volume)Ordered By: Asia Dodd on 02-20-2025 Magnesium (Unsp spec) [Mass/Vol] 1.9 mg/dL 1.5-2.2 [facility] Microalbumin,Random Urineon 02-20-2025 MICROALBUMIN,UR 79.3 mg/L Normal NO RANGE EST. [facility] Comment on above: Performed By: #### L 502.0500 ####[facility] [address] [place], [address] Phosphoruson 02-20-2025 Phosphate [Mass/Vol] 4.0 mg/dL Normal 2.7-4.5 [facility] Comment on above: Performed By: #### L 501.2300, L501.5200 ####[facility] [address] [place], [address] Urine albumin measurement wi th detection limit of 20 mg/L or less (mass/volume)Ordered By: Asia Dodd on 02-20-2025 Albumin DL <= 20 mg/L (U) [Mass/Vol] 79.3 mg/L NO RANGE EST. [facility] Bedside Glucoseon 02-19-2025 FINGERSTICK GLU 243 mg/dL High 74-106 [facility] Comment on above: Result Comment: GLORIA GEMENT OF PATIENT CARE PER NURSING PROTOCOL Performed By: #### L 501.080 ####[facility] [address] [place], [address] FINGERSTICK GLU 170 mg/dL High 74-106 [facility] Comment on above: Result Comment: GLORIA GEMENT OF PATIENT CARE PER NURSING PROTOCOL Performed By: #### L 501.080 ####[facility] [address] [place], [address] FINGERSTICK GLU 132 mg/dL High 74-106 [facility] Comment on above: Result Comment: GLORIA GEMENT OF PATIENT CARE PER NURSING PROTOCOL Performed By: #### L 501.080 ####[facility] [address] [place], [address] FINGERSTICK GLU 181 mg/dL High 74-106 [facility] Comment on above: Result Comment: GLORIA GEMENT OF PATIENT CARE PER NURSING PROTOCOL Performed By: #### L 501.080 ####[facility] [address] [place], [address] Basic Metabolic Profile (BMP )on 02-18-2025 BUN/CRE 17.7 RATIO Normal 10-20 [facility] Comment on above: Performed By: #### L 500.2500, L100.0100 ####[facility] [address] [place], [address] Calcium [Mass/Vol] 8.6 mg/dL Normal 7.6-11.0 [facility] Comment on above: Performed By: #### L 500.2500, L100.0100 ####[facility] [address] [place], [address] Chloride [Moles/Vol] 105 mmol/L Normal 98-108 [facility] Comment on above: Performed By: #### L 500.2500, L100.0100 ####[facility] [address] [place], [address] CO2 [Moles/Vol] 25.6 mmol/L Normal 21.0-32.0 [facility] Comment on above: Performed By: #### L 500.2500, L100.0100 ####[facility] [address] [place], [address] Creatinine [Mass/Vol] 1.64 mg/dL High 0.70-1.20 [facility] Comment on above: Performed By: #### L 500.2500, L100.0100 ####[facility] [address] [place], [address] ECRCL 49.50 ml/min Low 50-250 [facility] Comment on above: Performed By: #### L 500.2500, L100.0100 ####[facility] [address] [place], [address] GAP 9 Normal 5-15 [facility] Comment on above: Performed By: #### L 500.2500, L100.0100 ####[facility] [address] [place], [address] GFR/1.73 sq M.predicted among non-blacks MDRD (S/P/Bld) [Vol rate/Area] 43 mL/min/{1.73_m2} Low >60 [facility] Comment on above: Result Comment: mL/m in/1.73m2 CKD-EPI Creatinine Equation (2020) Performed By: #### L 500.2500, L100.0100 ####[facility] [address] [place], [address] Glucose [Mass/Vol] 149 mg/dL High 70-99 [facility] Comment on above: Performed By: #### L 500.2500, L100.0100 ####[facility] [address] [place], [address] Potassium [Moles/Vol] 4.2 mmol/L Normal 3.3-5.1 [facility] Comment on above: Performed By: #### L 500.2500, L100.0100 ####[facility] [address] [place], [address] Sodium [Moles/Vol] 139 mmol/L Normal 133-145 [facility] Comment on above: Performed By: #### L 500.2500, L100.0100 ####[facility] [address] [place], [address] Urea nitrogen [Mass/Vol] 29 mg/dL High 4-19 [facility] Comment on above: Performed By: #### L 500.2500, L100.0100 ####[facility] [address] [place], [address] Bedside Glucoseon 02-18-2025 FINGERSTICK GLU 273 mg/dL High 74-106 [facility] Comment on above: Result Comment: GLORIA GEMENT OF PATIENT CARE PER NURSING PROTOCOL Performed By: #### L 501.080 ####[facility] [address] [place], [address] FINGERSTICK GLU 200 mg/dL High 74-106 [facility] Comment on above: Result Comment: GLORIA GEMENT OF PATIENT CARE PER NURSING PROTOCOL Performed By: #### L 501.080 ####[facility] [address] [place], [address] FINGERSTICK GLU 134 mg/dL High 74-106 [facility] Comment on above: Result Comment: GLORIA GEMENT OF PATIENT CARE PER NURSING PROTOCOL Performed By: #### L 501.080 ####[facility] [address] [place], [address] FINGERSTICK GLU 162 mg/dL High 74-106 [facility] Comment on above: Result Comment: GLORIA GEMENT OF PATIENT CARE PER NURSING PROTOCOL Performed By: #### L 501.080 ####[facility] [address] [place], [address] CBC W/Diff, Automatedon 06-2 -2024 Absolute Lymph 1.61 X10 3/uL Normal 0.83-4.51 [facility] Comment on above: Performed By: #### L 500.2500, L100.0100 ####[facility] [address] [place], [address] Absolute Neut 6.4 X10 3/uL Normal 2.0-7.7 [facility] Comment on above: Performed By: #### L 500.2500, L100.0100 ####[facility] [address] [place], [address] Basophils/100 WBC (Bld) 0.5 % Normal 0-1 [facility] Comment on above: Performed By: #### L 500.2500, L100.0100 ####[facility] [address] [place], [address] Eosinophils/100 WBC (Bld) 4.3 % Normal 0-5 [facility] Comment on above: Performed By: #### L 500.2500, L100.0100 ####[facility] [address] [place], [address] Erythrocyte distribution width (RBC) [Ratio] 13.5 % Normal 11.6-14.6 [facility] Comment on above: Performed By: #### L 500.2500, L100.0100 ####[facility] [address] [place], [address] Hematocrit (Bld) [Volume fraction] 32.6 % Low 40-54 [facility] Comment on above: Performed By: #### L 500.2500, L100.0100 ####[facility] [address] [place], [address] Hemoglobin (Bld) [Mass/Vol] 11.1 g/dL Low 13.0-16.5 [facility] Comment on above: Performed By: #### L 500.2500, L100.0100 ####[facility] [address] [place], [address] IG% 1.100 High 0.0-0.9 [facility] Comment on above: Result Comment: IG% - Immature Granulocytes (promyelocytes, myelocytes andmetamyelocytes) > 1% indicates that a LEFT SHIFT is Present. Performed By: #### L 500.2500, L100.0100 ####[facility] [address] [place], [address] Lymphocytes/100 WBC (Bld) 16.5 % Low 19-41 [facility] Comment on above: Performed By: #### L 500.2500, L100.0100 ####[facility] [address] [place], [address] MCH (RBC) [Entitic mass] 31.8 pg Normal 27.0-32.0 [facility] Comment on above: Performed By: #### L 500.2500, L100.0100 ####[facility] [address] [place], [address] MCHC (RBC) [Mass/Vol] 34.0 g/dL Normal 32-36 [facility] Comment on above: Performed By: #### L 500.2500, L100.0100 ####[facility] [address] [place], [address] MCV (RBC) [Entitic vol] 93.4 fL Normal 80-94 [facility] Comment on above: Performed By: #### L 500.2500, L100.0100 ####[facility] [address] [place], [address] Monocytes/100 WBC (Bld) 11.7 % High 0-10 [facility] Comment on above: Performed By: #### L 500.2500, L100.0100 ####[facility] [address] [place], [address] Neutrophils/100 WBC (Bld) 65.9 % Normal 47-70 [facility] Comment on above: Performed By: #### L 500.2500, L100.0100 ####[facility] [address] [place], [address] Nucleated RBC (Bld) [#/Vol] 0 10*3/uL Normal 0-5 [facility] Comment on above: Performed By: #### L 500.2500, L100.0100 ####[facility] [address] [place], [address] Platelet mean volume (Bld) [Entitic vol] 9.3 fL Normal 6.2-12.0 [facility] Comment on above: Performed By: #### L 500.2500, L100.0100 ####[facility] [address] [place], [address] Platelets (Bld) [#/Vol] 227 10*3/uL Normal 150-450 [facility] Comment on above: Performed By: #### L 500.2500, L100.0100 ####[facility] [address] [place], [address] RBC (Bld) [#/Vol] 3.49 10*6/uL Low 4.6-6.2 [facility] Comment on above: Performed By: #### L 500.2500, L100.0100 ####[facility] [address] [place], [address] RDW SD 46.4 fl High 35.1-43.9 [facility] Comment on above: Performed By: #### L 500.2500, L100.0100 ####[facility] [address] [place], [address] WBC (Bld) [#/Vol] 9.8 10*3/uL Normal 4.4-11.0 [facility] Comment on above: Performed By: #### L 500.2500, L100.0100 ####[facility] [address] [place], [place], [id number] Calculated very low density lipoprotein (VLDL) cholesterol measurementOrdered By: Asia Dodd on 02-18-2025 Calculated very low density lipoprotein (VLDL) cholesterol measurement 27 mg/dL 5-40 [facility] Hemoglobin A1con 02-18-2025 HbA1c (Bld) [Mass fraction] 6.2 % High <=5.6 [facility] Comment on above: Result Comment: Norm al < 5.7 % Prediabetic 5.7 - 6.4 % Diabetic >or= 6.5 % Please note range changes. Performed By: #### L 501.9985, L500.4100 ####[facility] [address] [place], [place], [id number] Hemoglobin A1c percentageOrd ered By: Asia Dodd on 02-18-2025 HbA1c (Bld) [Mass fraction] 6.2 % High <5.7 [facility] Comment on above: Normal < 5.7 % Predi abetic 5.7 - 6.4 % Diabetic >or= 6.5 % Please note range changes. LDL calc ser/plasOrdered By: Asia Dodd on 02-18-2025 Cholesterol in LDL [Mass/Vol] 100 mg/dL [facility] Comment on above: Bxbrshiimb=288-601 m g/dL & Higher Vvvh=507 mg/dL or greater Lipid Profileon 02-18-2025 CHOL:HDL 5.72 Normal [facility] Comment on above: Performed By: #### L 501.9985, L500.4100 ####[facility] [address] [place], [place], [id number] Cholesterol [Mass/Vol] 154 mg/dL Normal <=200 [facility] Comment on above: Result Comment: Chol esterol level, Desirable <200 mg/dLBorderline high cholesterol 200-239 mg/dLHigh cholesterol >=240 mg/dLRecommendations of the NCEP Adult Treatment Panel for thefollowing risk-cutoff thresholds for the [place] [facility]. Performed By: #### L 501.9985, L500.4100 ####[facility] [address] [place], [address] Cholesterol in HDL [Mass/Vol] 27 mg/dL Low [facility] Comment on above: Result Comment: Nae onal Cholesterol Education Program (NCEP) guidelines:<40 mg/dL: Low HDL-cholesterol (major risk factor for CHD)>= 60 mg/dL: High HDL-cholesterol (negative risk factor forCHD)HDL-cholesterol is affected by a number of factors, e.g.smoking, exercise, hormones, sex and age. Performed By: #### L 501.9985, L500.4100 ####[facility] [address] [place], [address] Cholesterol in LDL [Mass/Vol] 100 mg/dL Normal [facility] Comment on above: Result Comment: Bord huqtqp=494-807 mg/dL Higher Mgwh=489 mg/dL or greater Performed By: #### L 501.9985, L500.4100 ####[facility] [address] [place], [address] Cholesterol in VLDL [Mass/Vol] 27 mg/dL Normal 5-40 [facility] Comment on above: Performed By: #### L 501.9985, L500.4100 ####[facility] [address] [place], [address] Triglyceride [Mass/Vol] 137 mg/dL Normal [facility] Comment on above: Result Comment: The drugs N-Acetylcysteine and Metamizole may falselydepress this assay.Normal range: <150 mg/dLBorderline High: 150-199 mg/dLHigh: 200-499 mg/dLVery High: >500 mg/dL Performed By: #### L 501.9985, L500.4100 ####[facility] [address] [place], [place], [address] Screening total cholesterol/ high density lipoprotein (HDL) cholesterol ratioOrdered By: Asia Dodd on 02-18-2025 Cholesterol.total/Choles terol in HDL [Mass ratio] 5.72 {ratio} [facility] Serum or plasma cholesterol in HDL measurement (mass/volume)Ordered By: Asia Dodd on 02-18-2025 Cholesterol in HDL [Mass/Vol] 27 mg/dL Low >40 [facility] Comment on above: National Cholesterol Education Program (NCEP) guidelines:<40 mg/dL: Low HDL-cholesterol (major risk factor for CHD)>= 60 mg/dL: High HDL-cholesterol (negative risk factor for CHD)HDL-cholesterol is affected by a number of factors, e.g. smoking, exercise, hormones, sex and age. Serum or plasma cholesterol measurement (mass/volume)Ordered By: Asia Dodd on 02-18-2025 Cholesterol [Mass/Vol] 154 mg/dL <201 [facility] Comment on above: Cholesterol level, D esirable <200 mg/dLBorderline high cholesterol 200-239 mg/dLHigh cholesterol >=240 mg/dLRecommendations of the NCEP Adult Treatment Panel for the following risk-cutoff thresholds for the [place] population. Triglycerides measurementOrd ered By: Asia Dodd on 02-18-2025 Triglyceride [Mass/Vol] 137 mg/dL <199 [facility] Comment on above: The drugs N-Acetylcy steine and Metamizole may falsely depress this assay. Normal range: <150 mg/dLBorderline High: 150-199 mg/dLHigh: 200-499 mg/dLVery High: >500 mg/dL Urine Cultureon 02-18-2025 URC Culture exhibits no growth. Normal [facility] Comment on above: Performed By: #### M 100.2200, L400.0001 ####[facility] [address] [place], [place], [id number] Abdomen Single Viewon 2024 Abdomen Single View Normal [facility] Absolute lymphocyte countOrd ered By: Shraddha Gamez on 02-17-2025 Lymphocytes Auto (Unsp spec) [#/Vol] 2.49 10*3/uL 0.83-4.51 [facility] Absolute neutrophil countOrd ered By: Shraddha Gamez on 02-17-2025 Neutrophils (Bld) [#/Vol] 9.1 10*3/uL High 2.0-7.7 [facility] Anion gap in Serum or Plasma Ordered By: Shraddha Gamez on 02-17-2025 Anion gap [Moles/Vol] 9 mmol/L 01-12 [facility] Automated lymphocyte count a s percentage of total leukocytesOrdered By: Shraddha Gamez on 02-17-2025 Lymphocytes/100 WBC Auto (Unsp spec) 18.9 % Low 19-41 [facility] BUN/creatinine ratioOrdered By: Shraddha Gamez on 02-17-2025 Urea nitrogen/Creatinine [Mass ratio] 15.3 mg/mg 06-19 [facility] Basic Metabolic Profile (BMP )on 02-17-2025 BUN/CRE 15.3 RATIO Normal 06-19 [facility] Comment on above: Performed By: #### L 500.2500, L100.0100 ####[facility] [address] [place], [address] Calcium [Mass/Vol] 8.7 mg/dL Normal 7.6-11.0 [facility] Comment on above: Performed By: #### L 500.2500, L100.0100 ####[facility] [address] [place], [address] Chloride [Moles/Vol] 102 mmol/L Normal 98-108 [facility] Comment on above: Performed By: #### L 500.2500, L100.0100 ####[facility] [address] [place], [address] CO2 [Moles/Vol] 26.1 mmol/L Normal 21.0-32.0 [facility] Comment on above: Performed By: #### L 500.2500, L100.0100 ####[facility] [address] [place], [address] Creatinine [Mass/Vol] 1.92 mg/dL High 0.70-1.20 [facility] Comment on above: Performed By: #### L 500.2500, L100.0100 ####[facility] [address] [place], [address] ECRCL 42.47 ml/min Low 50-250 [facility] Comment on above: Performed By: #### L 500.2500, L100.0100 ####[facility] [address] [place], [address] GAP 9 Normal 5-15 [facility] Comment on above: Performed By: #### L 500.2500, L100.0100 ####[facility] [address] [place], [address] GFR/1.73 sq M.predicted among non-blacks MDRD (S/P/Bld) [Vol rate/Area] 35 mL/min/{1.73_m2} Low >60 [facility] Comment on above: Result Comment: mL/m in/1.73m2 CKD-EPI Creatinine Equation (2020) Performed By: #### L 500.2500, L100.0100 ####[facility] [address] [place], [address] Glucose [Mass/Vol] 72 mg/dL Normal 70-99 [facility] Comment on above: Performed By: #### L 500.2500, L100.0100 ####[facility] [address] [place], [address] Potassium [Moles/Vol] 4.0 mmol/L Normal 3.3-5.1 [facility] Comment on above: Performed By: #### L 500.2500, L100.0100 ####[facility] [address] [place], [address] Sodium [Moles/Vol] 137 mmol/L Normal 133-145 [facility] Comment on above: Performed By: #### L 500.2500, L100.0100 ####[facility] [address] [place], [address] Urea nitrogen [Mass/Vol] 29 mg/dL High 4-19 [facility] Comment on above: Performed By: #### L 500.2500, L100.0100 ####[facility] [address] [place], [address] Basophil percentageOrdered B y: Shraddha Gamez on 02-17-2025 Basophils/100 WBC (Bld) 0.4 % 0-1 [facility] Bedside Glucoseon 02-17-2025 FINGERSTICK GLU 187 mg/dL High 74-106 [facility] Comment on above: Result Comment: GLORIA GEMENT OF PATIENT CARE PER NURSING PROTOCOL Performed By: #### L 501.080 ####[facility] [address] [place], [address] FINGERSTICK GLU 203 mg/dL High 74-106 [facility] Comment on above: Result Comment: GLORIA GEMENT OF PATIENT CARE PER NURSING PROTOCOL Performed By: #### L 501.080 ####[facility] [address] [place], [address] FINGERSTICK GLU 209 mg/dL High 74-106 [facility] Comment on above: Result Comment: GLORIA GEMENT OF PATIENT CARE PER NURSING PROTOCOL Performed By: #### L 501.080 ####[facility] [address] [place], [address] FINGERSTICK GLU 79 mg/dL Normal 74-106 [facility] Comment on above: Result Comment: GLORIA GEMENT OF PATIENT CARE PER NURSING PROTOCOL Performed By: #### L 501.080 ####[facility] [address] [place], [address] Bilirubin Test strip Ql (U)O rdered By: Shraddha Gamez on 02-17-2025 Bilirubin Ql (U) Negative Negative [facility] CBC W/Diff, Automatedon 06-2 0-2024 Absolute Lymph 2.49 X10 3/uL Normal 0.83-4.51 [facility] Comment on above: Performed By: #### L 500.2500, L100.0100 ####[facility] [address] [place], [address] Absolute Neut 9.1 X10 3/uL High 2.0-7.7 [facility] Comment on above: Performed By: #### L 500.2500, L100.0100 ####[facility] [address] [place], [address] Basophils/100 WBC (Bld) 0.4 % Normal 0-1 [facility] Comment on above: Performed By: #### L 500.2500, L100.0100 ####[facility] [address] [place], [address] Eosinophils/100 WBC (Bld) 2.2 % Normal 0-5 [facility] Comment on above: Performed By: #### L 500.2500, L100.0100 ####[facility] [address] [place], [address] Erythrocyte distribution width (RBC) [Ratio] 13.6 % Normal 11.6-14.6 [facility] Comment on above: Performed By: #### L 500.2500, L100.0100 ####[facility] [address] [place], [address] Hematocrit (Bld) [Volume fraction] 35.8 % Low 40-54 [facility] Comment on above: Performed By: #### L 500.2500, L100.0100 ####[facility] [address] [place], [address] Hemoglobin (Bld) [Mass/Vol] 12.1 g/dL Low 13.0-16.5 [facility] Comment on above: Performed By: #### L 500.2500, L100.0100 ####[facility] [address] [place], [address] IG% 1.100 High 0.0-0.9 [facility] Comment on above: Result Comment: IG% - Immature Granulocytes (promyelocytes, myelocytes andmetamyelocytes) > 1% indicates that a LEFT SHIFT is Present. Performed By: #### L 500.2500, L100.0100 ####[facility] [address] [place], [address] Lymphocytes/100 WBC (Bld) 18.9 % Low 19-41 [facility] Comment on above: Performed By: #### L 500.2500, L100.0100 ####[facility] [address] [place], [address] MCH (RBC) [Entitic mass] 31.4 pg Normal 27.0-32.0 [facility] Comment on above: Performed By: #### L 500.2500, L100.0100 ####[facility] [address] [place], [address] MCHC (RBC) [Mass/Vol] 33.8 g/dL Normal 32-36 [facility] Comment on above: Performed By: #### L 500.2500, L100.0100 ####[facility] [address] [place], [address] MCV (RBC) [Entitic vol] 93.0 fL Normal 80-94 [facility] Comment on above: Performed By: #### L 500.2500, L100.0100 ####[facility] [address] [place], [address] Monocytes/100 WBC (Bld) 8.4 % Normal 0-10 [facility] Comment on above: Performed By: #### L 500.2500, L100.0100 ####[facility] [address] [place], [address] Neutrophils/100 WBC (Bld) 69.0 % Normal 47-70 [facility] Comment on above: Performed By: #### L 500.2500, L100.0100 ####[facility] [address] [place], [address] Nucleated RBC (Bld) [#/Vol] 0 10*3/uL Normal 0-5 [facility] Comment on above: Performed By: #### L 500.2500, L100.0100 ####[facility] [address] [place], [address] Platelet mean volume (Bld) [Entitic vol] 9.4 fL Normal 6.2-12.0 [facility] Comment on above: Performed By: #### L 500.2500, L100.0100 ####[facility] [address] [place], [address] Platelets (Bld) [#/Vol] 227 10*3/uL Normal 150-450 [facility] Comment on above: Performed By: #### L 500.2500, L100.0100 ####[facility] [address] [place], [address] RBC (Bld) [#/Vol] 3.85 10*6/uL Low 4.6-6.2 [facility] Comment on above: Performed By: #### L 500.2500, L100.0100 ####[facility] [address] [place], [address] RDW SD 46.6 fl High 35.1-43.9 [facility] Comment on above: Performed By: #### L 500.2500, L100.0100 ####[facility] [address] [place], [address] WBC (Bld) [#/Vol] 13.2 10*3/uL High 4.4-11.0 [facility] Comment on above: Performed By: #### L 500.2500, L100.0100 ####[facility] [address] [place], [place], [id number] COVID 19 AG RAPID ([place])on 02-17-2025 SARS-CoV-2 (COVID-19) RNA MATEO+probe Ql (Unsp spec) Normal [facility] Comment on above: Performed By: #### M 100.505 ####[facility] [address] [place], [place], [address] COVID-19 virus antigen assay Ordered By: Asia Dodd on 02-17-2025 SARS-CoV-2 (COVID-19) Ag IA.rapid Ql (Resp) [facility] Carbon dioxide, total [Moles /volume] in Central venous bloodOrdered By: Shraddha Gamez on 02-17-2025 CO2 [Moles/Vol] 26.1 mmol/L 21.0-32.0 [facility] Chest PA and Lateralon 02-17 Chest PA and Lateral Normal [facility] Chloride assayOrdered By: Priscilla Gamez on 02-17-2025 Chloride [Moles/Vol] 102 mmol/L 98-108 [facility] Eosinophil percentageOrdered By: Shraddha Gamez on 02-17-2025 Eosinophils/100 WBC (Bld) 2.2 % 0-5 [facility] Erythrocyte distribution wid th ratioOrdered By: Shraddha Gamez on 02-17-2025 Erythrocyte distribution width (RBC) [Ratio] 13.6 % 11.6-14.6 [facility] Erythrocyte distribution wid th standard deviationOrdered By: Shraddha Gamez on 02-17-2025 Erythrocyte distribution width (RBC) [Ratio] 46.6 fl High 35.1-43.9 [facility] Glomerular filtration rate ( GFR) estimation/1.73 sq m using serum, plasma, or whole bOrdered By: Shraddha Gamez on 02-17-2025 GFR/1.73 sq M.predicted among non-blacks MDRD (S/P/Bld) [Vol rate/Area] 35 mL/min/{1.73_m2} Low >60 [facility] Comment on above: mL/min/1.73m2 CKD-EP I Creatinine Equation (2020) [facility]dered By: Rasheed Galindo on 02-17-2025 Glucose [Mass/Vol] 209 mg/dL High 74-106 [facility] Comment on above: MANAGEMENT OF PATIEN T CARE PER NURSING PROTOCOL Hematocrit Auto (Bld) [Volum e fraction]Ordered By: Shraddha Gamez on 02-17-2025 Hematocrit (Bld) [Volume fraction] 35.8 % Low 40-54 [facility] Hemoglobin measurementOrdere d By: Shraddha Gamez on 02-17-2025 Hemoglobin (Bld) [Mass/Vol] 12.1 g/dL Low 13.0-16.5 [facility] Immature granulocytes/100 WB C Auto (Bld)Ordered By: Shraddha Gamez on 02-17-2025 Immature granulocytes/100 WBC (Bld) 1.100 % High 0.0-0.9 [facility] Comment on above: IG% - Immature Granu locytes (promyelocytes, myelocytes and metamyelocytes) > 1% indicates that a LEFT SHIFT is Present. Ketones Test strip Ql (U)Ord ered By: Shraddha Gamez on 02-17-2025 Ketones Ql (U) Negative Negative [facility] MCV (mean corpuscular volume ) determinationOrdered By: Shraddha Gamez on 02-17-2025 MCV (RBC) [Entitic vol] 93.0 fL 80-94 [facility] Mean corpuscular hemoglobin (MCH) determinationOrdered By: Shraddha Gamez on 02-17-2025 MCH (RBC) [Entitic mass] 31.4 pg 27.0-32.0 [facility] Mean corpuscular hemoglobin concentration (MCHC) determinationOrdered By: Shraddha Gamez on 02-17-2025 MCHC (RBC) [Mass/Vol] 33.8 g/dL 32-36 [facility] Mean platelet volume determi nationOrdered By: Shraddha Gamez on 02-17-2025 Platelet mean volume (Bld) [Entitic vol] 9.4 fL 6.2-12.0 [facility] Microscopic analysis of urin e for red blood cells (RBC)Ordered By: Shraddha Gamez on 02-17-2025 Microscopic analysis of urine for red blood cells (RBC) 5-10 SEEN /hpf 0-5 [facility] Monocyte percentageOrdered B y: Shraddha Gamez on 02-17-2025 Monocytes/100 WBC (Bld) 8.4 % 0-10 [facility] Mucus LM Ql (Urine sed)Order ed By: Shraddha Gamez on 02-17-2025 Mucus Ql (Urine sed) RARE /hpf [facility] Neutrophil percentageOrdered By: Shraddha Gamez on 02-17-2025 Neutrophils/100 WBC (Bld) 69.0 % 47-70 [facility] Nitrite Test strip Ql (U)Ord ered By: Shraddha Gamez on 02-17-2025 Nitrite Ql (U) Negative Negative [facility] Nucleated red blood cell per centageOrdered By: Shraddha Gamez on 02-17-2025 Nucleated RBC/100 WBC (Bld) [Ratio] 0 % 0-5 [facility] Platelet countOrdered By: Priscilla Gamez on 02-17-2025 Platelets (Bld) [#/Vol] 227 10*3/uL 150-450 [facility] Potassium measurement (mass/ volume)Ordered By: Shraddha Gamez on 02-17-2025 Potassium (Unsp spec) [Mass/Vol] 4.0 mmol/L 3.3-5.1 [facility] Protein Test strip Ql (U)Ord ered By: Shraddha Gamez on 02-17-2025 Protein Ql (U) 30 mg/dl High Negative [facility] RBC Auto (Bld) [#/Vol]Ordere d By: Shraddha Gamez on 02-17-2025 RBC (Bld) [#/Vol] 3.85 10*6/uL Low 4.6-6.2 [facility] Serum creatinine measurement (mass/volume)Ordered By: Shraddha Gamez on 02-17-2025 Creatinine [Mass/Vol] 1.92 mg/dL High 0.70-1.20 [facility] Serum glucose measurement (m ass/volume)Ordered By: Shraddha Gamez on 02-17-2025 Glucose [Mass/Vol] 72 mg/dL 70-99 [facility] Serum or plasma calcium esperanza urement (mass/volume)Ordered By: Shraddha Gamez on 02-17-2025 Calcium [Mass/Vol] 8.7 mg/dL 7.6-11.0 [facility] Serum or plasma urea nitroge n measurement (mass/volume)Ordered By: Shraddha Gamez on 02-17-2025 Urea nitrogen [Mass/Vol] 29 mg/dL High 4-19 [facility] Sodium levelOrdered By: Ayush Gamez on 02-17-2025 Sodium [Moles/Vol] 137 mmol/L 133-145 [facility] Squamous epithelial cells de tection in urine sediment by light microscopyOrdered By: Shraddha Gamez on 02-17-2025 Epithelial cells.squamous LM Ql (Urine sed) 0-5 SEEN /hpf 0-5 [facility] Urinalysis, Completeon 02-17 BACTERIA RARE Normal None Seen [facility] Comment on above: Order Comment: RAMOS TER SPECIMEN Performed By: #### M 100.2200, L400.0001 ####[facility] [address] [place], [address] EPI,SQUAMOUS 0-5 SEEN Normal 0-5 [facility] Comment on above: Order Comment: RAMOS TER SPECIMEN Performed By: #### M 100.2200, L400.0001 ####[facility] [address] [place], [address] Mucus Ql (Urine sed) RARE Normal [facility] Comment on above: Order Comment: RAMOS TER SPECIMEN Performed By: #### M 100.2200, L400.0001 ####[facility] [address] [place], [address] RBC 5-10 SEEN Normal 0-5 [facility] Comment on above: Order Comment: RAMOS TER SPECIMEN Performed By: #### M 100.2200, L400.0001 ####[facility] [address] [place], [address] WBC 5-10 SEEN Normal 0-5 [facility] Comment on above: Order Comment: RAMOS TER SPECIMEN Performed By: #### M 100.2200, L400.0001 ####[facility] [address] [place], [address] Urine clarityOrdered By: Zachary Gamez on 02-17-2025 Clarity (U) Sl. Cloudy Clear [facility] Urine color determinationOrd ered By: Shraddha Gamez on 02-17-2025 Color (U) Yellow Yellow [facility] Urine cultureOrdered By: Zachary Gamez on 02-17-2025 Bacteria identified Cx Nom (U) Culture exhibits no growth. [facility] Urine glucose detectionOrder ed By: Shraddha Gamez on 02-17-2025 Glucose Ql (U) Normal mg/dl Normal [facility] Urine leukocyte esterase det ection by dipstickOrdered By: Shraddha Gamez on 02-17-2025 Leukocyte esterase Test strip Ql (U) 100 /ul High Negative [facility] Urine pHOrdered By: Shraddha hinton on 02-17-2025 pH (U) 6.0 [pH] 5.0 - 8.0 [facility] Urine sediment bacteria coun t by microscopy (number/high power field)Ordered By: Shraddha Gamez on 02-17-2025 Bacteria LM.HPF (Urine sed) [#/Area] RARE /hpf None Seen [facility] Urine specific gravity measu rementOrdered By: Shraddha Gamez on 02-17-2025 Specific gravity (U) [Rel density] 1.015 1.002-1.030 [facility] Urine urobilinogen measureme ntOrdered By: Shraddha Gamez on 02-17-2025 Urobilinogen Ql (U) Normal mg/dl Normal [facility] White blood cell (WBC) count Ordered By: Shraddha Gamez on 02-17-2025 WBC (Bld) [#/Vol] 13.2 10*3/uL High 4.4-11.0 [facility] White blood cell countOrdere d By: Shraddha Gamez on 02-17-2025 White blood cell count 5-10 SEEN /hpf 0-5 [facility] Basic Metabolic Profile (BMP )on 02-16-2025 BUN/CRE 13.6 RATIO Normal 10-20 [facility] Comment on above: Performed By: #### L 500.2500, L100.0100 ####[facility] [address] [place], [address] Calcium [Mass/Vol] 8.4 mg/dL Normal 7.6-11.0 [facility] Comment on above: Performed By: #### L 500.2500, L100.0100 ####[facility] [address] [place], [address] Chloride [Moles/Vol] 98 mmol/L Normal 98-108 [facility] Comment on above: Performed By: #### L 500.2500, L100.0100 ####[facility] [address] [place], [address] CO2 [Moles/Vol] 25.1 mmol/L Normal 21.0-32.0 [facility] Comment on above: Performed By: #### L 500.2500, L100.0100 ####[facility] [address] [place], [address] Creatinine [Mass/Vol] 2.20 mg/dL High 0.70-1.20 [facility] Comment on above: Performed By: #### L 500.2500, L100.0100 ####[facility] [address] [place], [address] ECRCL 36.91 ml/min Low 50-250 [facility] Comment on above: Performed By: #### L 500.2500, L100.0100 ####[facility] [address] [place], [address] GAP 11 Normal 5-15 [facility] Comment on above: Performed By: #### L 500.2500, L100.0100 ####[facility] [address] [place], [address] GFR/1.73 sq M.predicted among non-blacks MDRD (S/P/Bld) [Vol rate/Area] 30 mL/min/{1.73_m2} Low >60 [facility] Comment on above: Result Comment: mL/m in/1.73m2 CKD-EPI Creatinine Equation (2020) Performed By: #### L 500.2500, L100.0100 ####[facility] [address] [place], [address] Glucose [Mass/Vol] 197 mg/dL High 70-99 [facility] Comment on above: Performed By: #### L 500.2500, L100.0100 ####[facility] [address] [place], [address] Potassium [Moles/Vol] 4.2 mmol/L Normal 3.3-5.1 [facility] Comment on above: Performed By: #### L 500.2500, L100.0100 ####[facility] [address] [place], [address] Sodium [Moles/Vol] 134 mmol/L Normal 133-145 [facility] Comment on above: Performed By: #### L 500.2500, L100.0100 ####[facility] [address] [place], [address] Urea nitrogen [Mass/Vol] 30 mg/dL High 4-19 [facility] Comment on above: Performed By: #### L 500.2500, L100.0100 ####[facility] [address] [place], [address] Bedside Glucoseon 02-16-2025 FINGERSTICK GLU 179 mg/dL High 74-106 [facility] Comment on above: Result Comment: GLORIA GEMENT OF PATIENT CARE PER NURSING PROTOCOL Performed By: #### L 501.080 ####[facility] [address] [place], [address] FINGERSTICK GLU 258 mg/dL High 74-106 [facility] Comment on above: Result Comment: GLORIA GEMENT OF PATIENT CARE PER NURSING PROTOCOL Performed By: #### L 501.080 ####[facility] [address] [place], [address] FINGERSTICK GLU 153 mg/dL High 74-106 [facility] Comment on above: Result Comment: GLORIA GEMENT OF PATIENT CARE PER NURSING PROTOCOL Performed By: #### L 501.080 ####[facility] [address] [place], [address] FINGERSTICK GLU 180 mg/dL High 74-106 [facility] Comment on above: Result Comment: GLORIA GEMENT OF PATIENT CARE PER NURSING PROTOCOL Performed By: #### L 501.080 ####[facility] [address] [place], [address] CBC W/Diff, Automatedon - Absolute Lymph 1.63 X10 3/uL Normal 0.83-4.51 [facility] Comment on above: Performed By: #### L 500.2500, L100.0100 ####[facility] [address] [place], [address] Absolute Neut 10.4 X10 3/uL High 2.0-7.7 [facility] Comment on above: Performed By: #### L 500.2500, L100.0100 ####[facility] [address] [place], [address] Basophils/100 WBC (Bld) 0.4 % Normal 0-1 [facility] Comment on above: Performed By: #### L 500.2500, L100.0100 ####[facility] [address] [place], [address] Eosinophils/100 WBC (Bld) 1.0 % Normal 0-5 [facility] Comment on above: Performed By: #### L 500.2500, L100.0100 ####[facility] [address] [place], [address] Erythrocyte distribution width (RBC) [Ratio] 13.3 % Normal 11.6-14.6 [facility] Comment on above: Performed By: #### L 500.2500, L100.0100 ####[facility] [address] [place], [address] Hematocrit (Bld) [Volume fraction] 36.6 % Low 40-54 [facility] Comment on above: Performed By: #### L 500.2500, L100.0100 ####[facility] [address] [place], [address] Hemoglobin (Bld) [Mass/Vol] 12.6 g/dL Low 13.0-16.5 [facility] Comment on above: Performed By: #### L 500.2500, L100.0100 ####[facility] [address] [place], [address] IG% 0.900 Normal 0.0-0.9 [facility] Comment on above: Result Comment: IG% - Immature Granulocytes (promyelocytes, myelocytes andmetamyelocytes) > 1% indicates that a LEFT SHIFT is Present. Performed By: #### L 500.2500, L100.0100 ####[facility] [address] [place], [address] Lymphocytes/100 WBC (Bld) 12.1 % Low 19-41 [facility] Comment on above: Performed By: #### L 500.2500, L100.0100 ####[facility] [address] [place], [address] MCH (RBC) [Entitic mass] 31.2 pg Normal 27.0-32.0 [facility] Comment on above: Performed By: #### L 500.2500, L100.0100 ####[facility] [address] [place], [address] MCHC (RBC) [Mass/Vol] 34.4 g/dL Normal 32-36 [facility] Comment on above: Performed By: #### L 500.2500, L100.0100 ####[facility] [address] [place], [address] MCV (RBC) [Entitic vol] 90.6 fL Normal 80-94 [facility] Comment on above: Performed By: #### L 500.2500, L100.0100 ####[facility] [address] [place], [address] Monocytes/100 WBC (Bld) 8.7 % Normal 0-10 [facility] Comment on above: Performed By: #### L 500.2500, L100.0100 ####[facility] [address] [place], [address] Neutrophils/100 WBC (Bld) 76.9 % High 47-70 [facility] Comment on above: Performed By: #### L 500.2500, L100.0100 ####[facility] [address] [place], [address] Nucleated RBC (Bld) [#/Vol] 0 10*3/uL Normal 0-5 [facility] Comment on above: Performed By: #### L 500.2500, L100.0100 ####[facility] [address] [place], [address] Platelet mean volume (Bld) [Entitic vol] 9.3 fL Normal 6.2-12.0 [facility] Comment on above: Performed By: #### L 500.2500, L100.0100 ####[facility] [address] [place], [address] Platelets (Bld) [#/Vol] 192 10*3/uL Normal 150-450 [facility] Comment on above: Performed By: #### L 500.2500, L100.0100 ####[facility] [address] [place], [address] RBC (Bld) [#/Vol] 4.04 10*6/uL Low 4.6-6.2 [facility] Comment on above: Performed By: #### L 500.2500, L100.0100 ####[facility] [address] [place] [place], [address] RDW SD 44.1 fl High 35.1-43.9 [facility] Comment on above: Performed By: #### L 500.2500, L100.0100 ####[facility] [address] [place], [address] WBC (Bld) [#/Vol] 13.5 10*3/uL High 4.4-11.0 [facility] Comment on above: Performed By: #### L 500.2500, L100.0100 ####[facility] [address] [place], [address] Discharge Instructionon - Discharge Instruction Normal [facility] Abdomen W/WO IV Contraston 0 - Abdomen W/WO IV Contrast Normal [facility] Basic Metabolic Profile (BMP )on 02-15-2025 BUN/CRE 9.7 RATIO Low 10-20 [facility] Comment on above: Performed By: #### L 100.0100, L500.2500 ####[facility] [address] [place], [address] Calcium [Mass/Vol] 8.6 mg/dL Normal 7.6-11.0 [facility] Comment on above: Performed By: #### L 100.0100, L500.2500 ####[facility] [address] [place], [address] Chloride [Moles/Vol] 98 mmol/L Normal 98-108 [facility] Comment on above: Performed By: #### L 100.0100, L500.2500 ####[facility] [address] [place], [address] CO2 [Moles/Vol] 22.2 mmol/L Normal 21.0-32.0 [facility] Comment on above: Performed By: #### L 100.0100, L500.2500 ####[facility] [address] [place], [address] Creatinine [Mass/Vol] 1.76 mg/dL High 0.70-1.20 [facility] Comment on above: Performed By: #### L 100.0100, L500.2500 ####[facility] [address] [place], [address] ECRCL 46.24 ml/min Low 50-250 [facility] Comment on above: Performed By: #### L 100.0100, L500.2500 ####[facility] [address] [place], [address] GAP 12 Normal 5-15 [facility] Comment on above: Performed By: #### L 100.0100, L500.2500 ####[facility] [address] [place], [address] GFR/1.73 sq M.predicted among non-blacks MDRD (S/P/Bld) [Vol rate/Area] 39 mL/min/{1.73_m2} Low >60 [facility] Comment on above: Result Comment: mL/m in/1.73m2 CKD-EPI Creatinine Equation (2020) Performed By: #### L 100.0100, L500.2500 ####[facility] [address] [place], [address] Glucose [Mass/Vol] 183 mg/dL High 70-99 [facility] Comment on above: Performed By: #### L 100.0100, L500.2500 ####[facility] [address] [place], [address] Potassium [Moles/Vol] 4.4 mmol/L Normal 3.3-5.1 [facility] Comment on above: Performed By: #### L 100.0100, L500.2500 ####[facility] [address] [place], [address] Sodium [Moles/Vol] 133 mmol/L Normal 133-145 [facility] Comment on above: Performed By: #### L 100.0100, L500.2500 ####[facility] [address] [place], [address] Urea nitrogen [Mass/Vol] 17 mg/dL Normal 4-19 [facility] Comment on above: Performed By: #### L 100.0100, L500.2500 ####[facility] [address] [place], [address] Bedside Glucoseon --2024 FINGERSTICK GLU 264 mg/dL High 74-106 [facility] Comment on above: Result Comment: GLORIA GEMENT OF PATIENT CARE PER NURSING PROTOCOL Performed By: #### L 501.080 ####[facility] [address] [place], [address] FINGERSTICK GLU 185 mg/dL High 74-106 [facility] Comment on above: Result Comment: GLORIA GEMENT OF PATIENT CARE PER NURSING PROTOCOL Performed By: #### L 501.080 ####[facility] [address] [place], [address] CBC W/Diff, Automatedon 06- Absolute Lymph 1.28 X10 3/uL Normal 0.83-4.51 [facility] Comment on above: Performed By: #### L 100.0100, L500.2500 ####[facility] [address] [place], [address] Absolute Neut 8.5 X10 3/uL High 2.0-7.7 [facility] Comment on above: Performed By: #### L 100.0100, L500.2500 ####[facility] [address] [place], [address] Basophils/100 WBC (Bld) 0.2 % Normal 0-1 [facility] Comment on above: Performed By: #### L 100.0100, L500.2500 ####[facility] [address] [place], [address] Eosinophils/100 WBC (Bld) 0.1 % Normal 0-5 [facility] Comment on above: Performed By: #### L 100.0100, L500.2500 ####[facility] [address] [place], [address] Erythrocyte distribution width (RBC) [Ratio] 13.2 % Normal 11.6-14.6 [facility] Comment on above: Performed By: #### L 100.0100, L500.2500 ####[facility] [address] [place], [address] Hematocrit (Bld) [Volume fraction] 40.7 % Normal 40-54 [facility] Comment on above: Performed By: #### L 100.0100, L500.2500 ####[facility] [address] [place], [address] Hemoglobin (Bld) [Mass/Vol] 13.8 g/dL Normal 13.0-16.5 [facility] Comment on above: Performed By: #### L 100.0100, L500.2500 ####[facility] [address] [place], [address] IG% 0.200 Normal 0.0-0.9 [facility] Comment on above: Result Comment: IG% - Immature Granulocytes (promyelocytes, myelocytes andmetamyelocytes) > 1% indicates that a LEFT SHIFT is Present. Performed By: #### L 100.0100, L500.2500 ####[facility] [address] [place], [address] Lymphocytes/100 WBC (Bld) 12.0 % Low 19-41 [facility] Comment on above: Performed By: #### L 100.0100, L500.2500 ####[facility] [address] [place], [address] MCH (RBC) [Entitic mass] 31.8 pg Normal 27.0-32.0 [facility] Comment on above: Performed By: #### L 100.0100, L500.2500 ####[facility] [address] [place], [address] MCHC (RBC) [Mass/Vol] 33.9 g/dL Normal 32-36 [facility] Comment on above: Performed By: #### L 100.0100, L500.2500 ####[facility] [address] [place], [address] MCV (RBC) [Entitic vol] 93.8 fL Normal 80-94 [facility] Comment on above: Performed By: #### L 100.0100, L500.2500 ####[facility] [address] [place], [address] Monocytes/100 WBC (Bld) 7.9 % Normal 0-10 [facility] Comment on above: Performed By: #### L 100.0100, L500.2500 ####[facility] [address] [place], [address] Neutrophils/100 WBC (Bld) 79.6 % High 47-70 [facility] Comment on above: Performed By: #### L 100.0100, L500.2500 ####[facility] [address] [place], [address] Nucleated RBC (Bld) [#/Vol] 0 10*3/uL Normal 0-5 [facility] Comment on above: Performed By: #### L 100.0100, L500.2500 ####[facility] [address] [place], [address] Platelet mean volume (Bld) [Entitic vol] 9.1 fL Normal 6.2-12.0 [facility] Comment on above: Performed By: #### L 100.0100, L500.2500 ####[facility] [address] [place], [address] Platelets (Bld) [#/Vol] 207 10*3/uL Normal 150-450 [facility] Comment on above: Performed By: #### L 100.0100, L500.2500 ####[facility] [address] [place], [address] RBC (Bld) [#/Vol] 4.34 10*6/uL Low 4.6-6.2 [facility] Comment on above: Performed By: #### L 100.0100, L500.2500 ####[facility] [address] [place], [address] RDW SD 45.3 fl High 35.1-43.9 [facility] Comment on above: Performed By: #### L 100.0100, L500.2500 ####[facility] [address] [place], [address] WBC (Bld) [#/Vol] 10.7 10*3/uL Normal 4.4-11.0 [facility] Comment on above: Performed By: #### L 100.0100, L500.2500 ####[facility] [address] [place], [address] CBC-Complete Blood Cnt No Di ffon 02-15-2025 Erythrocyte distribution width (RBC) [Ratio] 13.2 % Normal 11.6-14.6 [facility] Comment on above: Performed By: #### L 100.0500 ####[facility] [address] [place], [address] Hematocrit (Bld) [Volume fraction] 36.4 % Low 40-54 [facility] Comment on above: Performed By: #### L 100.0500 ####[facility] [address] [place], [address] Hemoglobin (Bld) [Mass/Vol] 12.6 g/dL Low 13.0-16.5 [facility] Comment on above: Performed By: #### L 100.0500 ####[facility] [address] [place], [address] MCH (RBC) [Entitic mass] 31.7 pg Normal 27.0-32.0 [facility] Comment on above: Performed By: #### L 100.0500 ####[facility] [address] [place], [address] MCHC (RBC) [Mass/Vol] 34.6 g/dL Normal 32-36 [facility] Comment on above: Performed By: #### L 100.0500 ####[facility] [address] [place], [address] MCV (RBC) [Entitic vol] 91.7 fL Normal 80-94 [facility] Comment on above: Performed By: #### L 100.0500 ####[facility] [address] [place], [address] Platelet mean volume (Bld) [Entitic vol] 9.5 fL Normal 6.2-12.0 [facility] Comment on above: Performed By: #### L 100.0500 ####[facility] [address] [place], [address] Platelets (Bld) [#/Vol] 209 10*3/uL Normal 150-450 [facility] Comment on above: Performed By: #### L 100.0500 ####[facility] [address] [place], [address] RBC (Bld) [#/Vol] 3.97 10*6/uL Low 4.6-6.2 [facility] Comment on above: Performed By: #### L 100.0500 ####[facility] [address] [place], [address] RDW SD 44.6 fl High 35.1-43.9 [facility] Comment on above: Performed By: #### L 100.0500 ####[facility] [address] [place], [address] WBC (Bld) [#/Vol] 13.7 10*3/uL High 4.4-11.0 [facility] Comment on above: Performed By: #### L 100.0500 ####[facility] [address] [place], [address] HCT Normal 40-54 [facility] Comment on above: Result Comment: DUPL ICATE-DRAWN AT 02/15 Performed By: #### L 100.0500 ####[facility] [address] [place], [address] HGB Normal 13.0-16.5 [facility] Comment on above: Result Comment: DUPL ICATE-DRAWN AT 02/15 Performed By: #### L 100.0500 ####[facility] [address] [place], [address] MCH Normal 27.0-32.0 [facility] Comment on above: Result Comment: [place] IC[place]-DRAW[place] AT 212918 Performed By: #### L 100.0500 ####[facility] [address] [place], [address] MCHC Normal 32-36 [facility] Comment on above: Result Comment: DUPL ICATE-DRAWN AT 02/15 Performed By: #### L 100.0500 ####[facility] [address] [place], [address] MCV Normal 80-94 [facility] Comment on above: Result Comment: DUPL ICATE-DRAWN AT 02/15 Performed By: #### L 100.0500 ####[facility] [address] [place], [address] PLT Normal 150-450 [facility] Comment on above: Result Comment: DUPL ICATE-DRAWN AT 02/15 Performed By: #### L 100.0500 ####[facility] [address] [place], [address] RBC Normal 4.6-6.2 [facility] Comment on above: Result Comment: DUPL ICATE-DRAWN AT 02/15 Performed By: #### L 100.0500 ####[facility] [address] [place], [address] RDW CV Normal 11.6-14.6 [facility] Comment on above: Result Comment: DUPL ICATE-DRAWN AT 02/15 Performed By: #### L 100.0500 ####[facility] [address] [place], [address] RDW SD Normal 35.1-43.9 [facility] Comment on above: Result Comment: DUPL ICATE-DRAWN AT 02/15 Performed By: #### L 100.0500 ####[facility] [address] [place], [address] WBC Normal 4.4-11.0 [facility] Comment on above: Result Comment: DUPL ICATE-DRAWN AT 02/15 Performed By: #### L 100.0500 ####[facility] [address] [place], [address] Erythrocyte distribution width (RBC) [Ratio] 13.2 % Normal 11.6-14.6 [facility] Comment on above: Performed By: #### L 100.0500 ####[facility] [address] [place], [address] Hematocrit (Bld) [Volume fraction] 36.9 % Low 40-54 [facility] Comment on above: Performed By: #### L 100.0500 ####[facility] [address] [place], [address] Hemoglobin (Bld) [Mass/Vol] 12.4 g/dL Low 13.0-16.5 [facility] Comment on above: Performed By: #### L 100.0500 ####[facility] [address] [place], [address] MCH (RBC) [Entitic mass] 31.1 pg Normal 27.0-32.0 [facility] Comment on above: Performed By: #### L 100.0500 ####[facility] [address] [place], [address] MCHC (RBC) [Mass/Vol] 33.6 g/dL Normal 32-36 [facility] Comment on above: Performed By: #### L 100.0500 ####[facility] [address] [place], [address] MCV (RBC) [Entitic vol] 92.5 fL Normal 80-94 [facility] Comment on above: Performed By: #### L 100.0500 ####[facility] [address] [place], [address] Platelet mean volume (Bld) [Entitic vol] 9.2 fL Normal 6.2-12.0 [facility] Comment on above: Performed By: #### L 100.0500 ####[facility] [address] [place], [address] Platelets (Bld) [#/Vol] 199 10*3/uL Normal 150-450 [facility] Comment on above: Performed By: #### L 100.0500 ####[facility] [address] [place], [address] RBC (Bld) [#/Vol] 3.99 10*6/uL Low 4.6-6.2 [facility] Comment on above: Performed By: #### L 100.0500 ####[facility] [address] [place], [address] RDW SD 44.8 fl High 35.1-43.9 [facility] Comment on above: Performed By: #### L 100.0500 ####[facility] [address] [place], [address] WBC (Bld) [#/Vol] 12.2 10*3/uL High 4.4-11.0 [facility] Comment on above: Performed By: #### L 100.0500 ####[facility] [address] [place], [address] EGD Reporton 02-15-2025 EGD Report Normal [facility] Gastric contents occult bloo d detectionOrdered By: Tess Munoz on 02-15-2025 Hemoglobin.gastrointesti nal Ql (Sharan fld) Positive Abnormal [facility] Gastric, Occult Bloodon 01-29 GASTOC Normal Reference Range = Negative Gastrocult- Occult Blood A * POSITIVE * A Gastroccult pH 5 OCCULT BLOOD POSITIVE Normal [facility] Comment on above: Performed By: #### M 100.7579 ####[facility] [address] [place], [address] MR/CON.PCM.GIon 02-15-2025 MR/CON.PCM.GI Normal [facility] MR/POSTOP.ANEon 02-15-2025 MR/POSTOP.ANE Normal [facility] MR/AEWEZQOA2qd 02-15-2025 MR/POSTOPAN2 Normal [facility] MR/POSTOPAN2 Normal [facility] MR/POSTOPAN2 Normal [facility] Bedside Glucoseon 02-14-2025 FINGERSTICK GLU 190 mg/dL High 74-106 [facility] Comment on above: Result Comment: GLORIA GEMENT OF PATIENT CARE PER NURSING PROTOCOL Performed By: #### L 501.080 ####[facility] [address] [place], [address] FINGERSTICK GLU 100 mg/dL Normal -106 [facility] Comment on above: Result Comment: GLORIA GEMENT OF PATIENT CARE PER NURSING PROTOCOL Performed By: #### L 501.080 ####[facility] [address] [place], [address] FINGERSTICK GLU 167 mg/dL High [address] [place] [address] Comment on above: Result Comment: GLORIA GEMENT OF PATIENT CARE PER NURSING PROTOCOL Performed By: #### L 501.080 ####[facility] [address] [place], [address] FINGERSTICK GLU 278 mg/dL High [address] [place] [address] Comment on above: Result Comment: GLORIA GEMENT OF PATIENT CARE PER NURSING PROTOCOL Performed By: #### L 501.080 ####[facility] [address] [place], [address] [facility] [place] TEST Positive Normal [facility] Comment on above: Result Comment: WRON G LABEL Performed By: #### L 9000.0800 ####[facility] [address] [place], [address] Base excess Calc (Bld) [Moles/Vol] 10 mmol/L High -2 to +2 [facility] Comment on above: Result Comment: WRON G LABEL Performed By: #### L 9000.0800 ####[facility] [address] [place], [address] Blood Gas Type ART Normal [facility] Comment on above: Result Comment: WRON G LABEL Performed By: #### L 9000.0800 ####[facility] [address] [place], [address] CO2 [Moles/Vol] 36 mmol/L Normal [facility] Comment on above: Result Comment: WRON G LABEL Performed By: #### L 9000.0800 ####[facility] [address] [place], [address] FI02 30.0 Normal [facility] Comment on above: Result Comment: WRON G LABEL Performed By: #### L 9000.0800 ####[facility] [address] [place], [address] HCO3 (Bld) [Moles/Vol] 34.5 mmol/L High 22-26 [facility] Comment on above: Result Comment: WRON G LABEL Performed By: #### L 9000.0800 ####[facility] [address] [place], [address] Mode AC Normal [facility] Comment on above: Result Comment: WRON G LABEL Performed By: #### L 9000.0800 ####[facility] [address] [place], [address] O2 Delivery Dev ET Tube Normal [facility] Comment on above: Result Comment: WRON G LABEL Performed By: #### L 9000.0800 ####[facility] [address] [place], [address] pCO2 56.9 mmHg High 35-45 [facility] Comment on above: Result Comment: WRON G LABEL Performed By: #### L 9000.0800 ####[facility] [address] [place], [address] PEEP 5 Normal [facility] Comment on above: Result Comment: WRON G LABEL Performed By: #### L 9000.0800 ####[facility] [address] [place], [address] pH (Bld) 7.39 [pH] Normal 7.35-7.45 [facility] Comment on above: Result Comment: WRON G LABEL Performed By: #### L 8999.08 ####[facility] [address] [place], [address] PO2 54 mmHG Low 75-100 [facility] Comment on above: Result Comment: WRON G LABEL Performed By: #### L 0.0800 ####[facility] [address] [place], [address] RR 18 Normal [facility] Comment on above: Result Comment: WRON G LABEL Performed By: #### L 9000.0800 ####[facility] [address] [place], [address] SITE R Radial Normal [facility] Comment on above: Result Comment: WRON G LABEL Performed By: #### L 0.0800 ####[facility] [address] [place], [address] SO2 86 Low 95-99 [facility] Comment on above: Result Comment: WRON G LABEL Performed By: #### L 8999.0800 ####[facility] [address] [place], [address] Vt 400.0 mL Normal [facility] Comment on above: Result Comment: WRON G LABEL Performed By: #### L 9000.0800 ####[facility] [address] [place], [address] Base excess Calc (Bld) [Moles/Vol] 0 mmol/L Normal -2 to +2 [facility] Comment on above: Performed By: #### L 9000.0800 ####[facility] [address] [place], [address] Blood Gas Type ART Normal [facility] Comment on above: Performed By: #### L 0.0800 ####[facility] [address] [place], [address] CO2 [Moles/Vol] 29 mmol/L Normal [facility] Comment on above: Performed By: #### L 0.08 ####[facility] [address] [place], [address] FI02 40.0 Normal [facility] Comment on above: Performed By: #### L 0.0800 ####[facility] [address] [place], [address] HCO3 (Bld) [Moles/Vol] 27.2 mmol/L High 22-26 [facility] Comment on above: Performed By: #### L 0.0800 ####[facility] [facility] [address] [place], [address] Mode Not entered Normal [facility] Comment on above: Performed By: #### L 0.0800 ####[facility] [address] [place], [address] O2 Delivery Dev BiPAP Normal [facility] Comment on above: Performed By: #### L 0.08 ####[facility] [address] [place], [address] pCO2 60.0 mmHg High 35-45 [facility] Comment on above: Performed By: #### L 9000.0800 ####[facility] [address] [place], [address] PEEP 6 Normal [facility] Comment on above: Performed By: #### L 0.0800 ####[facility] [address] [place], [address] pH (Bld) 7.27 [pH] Low 7.35-7.45 [facility] Comment on above: Performed By: #### L 9000.0800 ####[facility] [address] [place], [address] PO2 83 mmHG Normal 75-100 [facility] Comment on above: Performed By: #### L 8999.08 ####[facility] [address] [place], [address] RR 16 Normal [facility] Comment on above: Performed By: #### L 8999.0800 ####[facility] [address] [place], [address] SITE R Brach Normal [facility] Comment on above: Performed By: #### L 8999.0800 ####[facility] [address] [place], [address] SO2 94 Low 95-99 [facility] Comment on above: Performed By: #### L 8999.0800 ####[facility] [address] [place], [address] Base excess Calc (Bld) [Moles/Vol] 0 mmol/L Normal -2 to +2 [facility] Comment on above: Performed By: #### L 8999.0800 ####[facility] [address] [place], [address] Blood Gas Type ART Normal [facility] Comment on above: Performed By: #### L 8999.0800 ####[facility] [address] [place], [address] CO2 [Moles/Vol] 32 mmol/L Normal [facility] Comment on above: Performed By: #### L 8999.0800 ####[facility] [address] [place], [address] Comment AVAPS Normal [facility] Comment on above: Performed By: #### L 8999.0800 ####[facility] [address] [place], [address] FI02 40.0 Normal [facility] Comment on above: Performed By: #### L 9000.0800 ####[facility] [address] [place], [address] HCO3 (Bld) [Moles/Vol] 29.2 mmol/L High 22-26 [facility] Comment on above: Performed By: #### L 9000.0800 ####[facility] [address] [place], [address] Mode Not entered Normal [facility] Comment on above: Performed By: #### L 9000.0800 ####[facility] [address] [place], [address] O2 Delivery Dev BiPAP Normal [facility] Comment on above: Performed By: #### L 9000.0800 ####[facility] [address] [place], [address] pCO2 84.8 mmHg Invalid Interpretation Code 35-45 [facility] Comment on above: Performed By: #### L 9000.0800 ####[facility] [address] [place], [address] PEEP 10 Normal [facility] Comment on above: Performed By: #### L 9000.0800 ####[facility] [address] [place], [address] pH (Bld) 7.15 [pH] Invalid Interpretation Code 7.35-7.45 [facility] Comment on above: Performed By: #### L 9000.0800 ####[facility] [address] [place], [address] PO2 94 mmHG Normal 75-100 [facility] Comment on above: Performed By: #### L 9000.0800 ####[facility] [address] [place], [address] Read Back By Yes [facility] Comment on above: Performed By: #### L 9000.0800 ####[facility] [address] [place], [address] Results To CALIXTO NUNEZ [facility] Comment on above: Performed By: #### L 9000.0800 ####[facility] [address] [place], [address] RR 16 [facility] Comment on above: Performed By: #### L 9000.0800 ####[facility] [address] [place], [address] SITE R Brach [facility] Comment on above: Performed By: #### L 9000.0800 ####[facility] [address] [place], [address] SO2 94 Low 95-99 [facility] Comment on above: Performed By: #### L 9000.0800 ####[facility] [address] [place], [address] Time Given 14:32:13 [facility] Comment on above: Performed By: #### L 9000.0800 ####[facility] [address] [place], [address] Vt 500.0 mL [facility] Comment on above: Performed By: #### L 9000.0800 ####[facility] [address] [place], [address] Blood base excess determinat ionOrdered By: Rasheed Galindo on 02-14-2025 Base excess Calc (BldV) [Moles/Vol] 0 mmol/L -2-2 [facility] Blood bicarbonate measuremen tOrdered By: Rasheed Galindo on 02-14-2025 HCO3 (Bld) [Moles/Vol] 27.2 mmol/L High 22-26 [facility] Chest 1 View (Portable)on Chest 1 View (Portable) Normal [facility] Consultation - Hospitaliston 02-14-2025 Consultation - Hospitalist Normal [facility] Decalcification bone/plaqueo n 02-14-2025 Decalcification bone/plaque Normal [facility] Comment on above: Performed By: #### P DEC ####[facility] [address] [place], [address] Hip Min 2 Views (Portable)on 02-14-2025 Hip Min 2 Views (Portable) Normal [facility] L503.7505on 02-14-2025 Natriuretic peptide B (Bld) [Mass/Vol] 325 pg/mL Normal <=1800 [facility] Comment on above: Result Comment: Hear t Failure Unlikely: < 300 pg/mLHeart Failure Likely< 50 Years: > 450 pg/mL50-75 Years: > 900 pg/mL>75 Years: > 1800 pg/mL Performed By: #### L 503.7502 ####[facility] [address] [place], [place], [address] MR/POSTOP.ANEon 02-14-2025 MR/POSTOP.ANE Normal [facility] MR/MWCEJIEB3xw 02-14-2025 MR/POSTOPAN2 Normal [facility] Measurement, pHOrdered By: Kaitlynn Galindo on 02-14-2025 pH (Unsp spec) 7.27 [pH] Low 7.35-7.45 [facility] Natriuretic peptide.B prohor dasha N-Terminal [Mass/volume] in Serum or PlasmaOrdered By: Yomi Dempsey on 02-14-2025 Natriuretic peptide.B prohormone N-Terminal [Mass/Vol] 325 pg/mL <1800 [facility] Comment on above: Heart Failure Unlike ly: < 300 pg/mLHeart Failure Likely< 50 Years: > 450 pg/mL50-75 Years: > 900 pg/mL>75 Years: > 1800 pg/mL No Panel InformationOrdered By: Rasheed Galindo on 02-14-2025 Bedside Blood Gas PEEP 6 [facility] Blood Gas Respiration Rate 16 [facility] Blood Gas Sample Site R Brach [facility] Blood Gas Specimen Type ART [facility] Blood Gas Vent Mode Not entered [facility] Oxygen Delivery Device BiPAP [facility] Bld Gas Crit Called To/Read Back By Yes [facility] Blood Gas Clinical Comments AVAPS [facility] Blood Gas Notified Time 14:32:13 [facility] Blood Gas Notified Whom CALIXTO NUNEZ [facility] Blood Gas Tidal Volume 500.0 mL [facility] Operative Reporton Operative Report Normal [facility] Total carbon dioxide measure mentOrdered By: Rasheed Galindo on 02-14-2025 CO2 [Moles/Vol] 29 mmol/L [facility] Fructosamineon 02-05-2025 FRUCTOSAMINE 287 umol/L High 0-285 [facility] Comment on above: Result Comment: Publ ished reference interval for apparently healthysubjects between age 20 and 60 is 205 - 285 umol/L and in apoorly controlled diabetic population is 228 - 563 umol/Lwith a mean of 396 umol/L.Performed at: [facility] [address] [id number] Director: Oleg Scales PhD, Phone: [phone] Performed By: #### L 300.4310, M100.651, BTSPAT, L100.0100, L3400.0100, L500.2500, L300.3900, L501.9985 ####[facility] [address] [place], [address] MRSA/SAID NASAL SCREENon MRSA+SAID SCRN Reason for Exam: Surgery MRSA MRSA Negative S. AUREUS S. aureus Negative Normal [facility] Comment on above: Performed By: #### L 300.4310, M100.651, BTSPAT, L100.0100, L3400.0100, L500.2500, L300.3900, L501.9985 ####[facility] [address] [place], [address] Absolute lymphocyte countOrd ered By: Rasheed Josie on 02-03-2025 Lymphocytes Auto (Unsp spec) [#/Vol] 2.93 10*3/uL 0.83-4.51 [facility] Absolute neutrophil countOrd ered By: Rasheed Josie on 02-03-2025 Neutrophils (Bld) [#/Vol] 4.6 10*3/uL 2.0-7.7 [facility] Activated partial thrombopla stin time (aPTT) in platelet poor plasma by coagulation aOrdered By: Rasheed Galindo on 02-03-2025 aPTT Coag (PPP) [Time] 24.6 s 24.1-36.2 [facility] Anion gap in Serum or Plasma Ordered By: Rasheed Galindo on 02-03-2025 Anion gap [Moles/Vol] 12 mmol/L 5- [facility] Automated lymphocyte count a s percentage of total leukocytesOrdered By: Rasheed Galindo on 02-03-2025 Lymphocytes/100 WBC Auto (Unsp spec) 34.9 % - [facility] BUN/creatinine ratioOrdered By: Rasheed Josie on 02-03-2025 Urea nitrogen/Creatinine [Mass ratio] 11.6 mg/mg - [facility] Basic Metabolic Profile (BMP )on 02-03-2025 BUN/CRE 11.6 RATIO Normal - [facility] Comment on above: Performed By: #### L 300.4310, M100.651, BTSPAT, L100.0100, L3400.0100, L500.2500, L300.3900, L501.9985 ####[facility] [address] [place], [address] Calcium [Mass/Vol] 9.4 mg/dL Normal 7.6-11.0 [facility] Comment on above: Performed By: #### L 300.4310, M100.651, BTSPAT, L100.0100, L3400.0100, L500.2500, L300.3900, L501.9985 ####[facility] [address] [place], [address] Chloride [Moles/Vol] 103 mmol/L Normal 98-108 [facility] Comment on above: Performed By: #### L 300.4310, M100.651, BTSPAT, L100.0100, L3400.0100, L500.2500, L300.3900, L501.9985 ####[facility] [address] [place], [address] CO2 [Moles/Vol] 23.9 mmol/L Normal 21.0-32.0 [facility] Comment on above: Performed By: #### L 300.4310, M100.651, BTSPAT, L100.0100, L3400.0100, L500.2500, L300.3900, L501.9985 ####[facility] [address] [place], [address] Creatinine [Mass/Vol] 1.59 mg/dL High 0.70-1.20 [facility] Comment on above: Performed By: #### L 300.4310, M100.651, BTSPAT, L100.0100, L3400.0100, L500.2500, L300.3900, L501.9985 ####[facility] [address] [place], [place], [phone] GAP 12 Normal 5-15 [facility] Comment on above: Performed By: #### L 300.4310, M100.651, BTSPAT, L100.0100, L3400.0100, L500.2500, L300.3900, L501.9985 ####[facility] [address] [place], [address] GFR/1.73 sq M.predicted among non-blacks MDRD (S/P/Bld) [Vol rate/Area] 44 mL/min/{1.73_m2} Low >60 [facility] Comment on above: Result Comment: mL/m in/1.73m2 CKD-EPI Creatinine Equation (2020) Performed By: #### L 300.4310, M100.651, BTSPAT, L100.0100, L3400.0100, L500.2500, L300.3900, L501.9985 ####[facility] [address] [place], [address] Glucose [Mass/Vol] 171 mg/dL High 70-99 [facility] Comment on above: Performed By: #### L 300.4310, M100.651, BTSPAT, L100.0100, L3400.0100, L500.2500, L300.3900, L501.9985 ####[facility] [address] [place], [address] Potassium [Moles/Vol] 4.6 mmol/L Normal 3.3-5.1 [facility] Comment on above: Performed By: #### L 300.4310, M100.651, BTSPAT, L100.0100, L3400.0100, L500.2500, L300.3900, L501.9985 ####[facility] [address] [place], [address] Sodium [Moles/Vol] 139 mmol/L Normal 133-145 [facility] Comment on above: Performed By: #### L 300.4310, M100.651, BTSPAT, L100.0100, L3400.0100, L500.2500, L300.3900, L501.9985 ####[facility] [address] [place], [address] Urea nitrogen [Mass/Vol] 18 mg/dL Normal 4-19 [facility] Comment on above: Performed By: #### L 300.4310, M100.651, BTSPAT, L100.0100, L3400.0100, L500.2500, L300.3900, L501.9985 ####[facility] [address] [place], [address] Basophil percentageOrdered B y: Rasheed Galindo on 02-03-2025 Basophils/100 WBC (Bld) 0.7 % 0-1 [facility] CBC W/Diff, Automatedon Absolute Lymph 2.93 X10 3/uL Normal 0.83-4.51 [facility] Comment on above: Performed By: #### L 300.4310, M100.651, BTSPAT, L100.0100, L3400.0100, L500.2500, L300.3900, L501.9985 ####[facility] [address] [place], [address] Absolute Neut 4.6 X10 3/uL Normal 2.0-7.7 [facility] Comment on above: Performed By: #### L 300.4310, M100.651, BTSPAT, L100.0100, L3400.0100, L500.2500, L300.3900, L501.9985 ####[facility] [address] [place], [address] Basophils/100 WBC (Bld) 0.7 % Normal 0-1 [facility] Comment on above: Performed By: #### L 300.4310, M100.651, BTSPAT, L100.0100, L3400.0100, L500.2500, L300.3900, L501.9985 ####[facility] [address] [place], [address] Eosinophils/100 WBC (Bld) 2.3 % Normal 0-5 [facility] Comment on above: Performed By: #### L 300.4310, M100.651, BTSPAT, L100.0100, L3400.0100, L500.2500, L300.3900, L501.9985 ####[facility] [address] [place], [address] Erythrocyte distribution width (RBC) [Ratio] 13.3 % Normal 11.6-14.6 [facility] Comment on above: Performed By: #### L 300.4310, M100.651, BTSPAT, L100.0100, L3400.0100, L500.2500, L300.3900, L501.9985 ####[facility] [address] [place], [address] Hematocrit (Bld) [Volume fraction] 46.3 % Normal 40-54 [facility] Comment on above: Performed By: #### L 300.4310, M100.651, BTSPAT, L100.0100, L3400.0100, L500.2500, L300.3900, L501.9985 ####[facility] [address] [place], [address] Hemoglobin (Bld) [Mass/Vol] 15.8 g/dL Normal 13.0-16.5 [facility] Comment on above: Performed By: #### L 300.4310, M100.651, BTSPAT, L100.0100, L3400.0100, L500.2500, L300.3900, L501.9985 ####[facility] [address] [place], [address] IG% 0.400 Normal 0.0-0.9 [facility] Comment on above: Result Comment: IG% - Immature Granulocytes (promyelocytes, myelocytes andmetamyelocytes) > 1% indicates that a LEFT SHIFT is Present. Performed By: #### L 300.4310, M100.651, BTSPAT, L100.0100, L3400.0100, L500.2500, L300.3900, L501.9985 ####[facility] [address] [place], [address] Lymphocytes/100 WBC (Bld) 34.9 % Normal 19-41 [facility] Comment on above: Performed By: #### L 300.4310, M100.651, BTSPAT, L100.0100, L3400.0100, L500.2500, L300.3900, L501.9985 ####[facility] [address] [place], [address] MCH (RBC) [Entitic mass] 31.3 pg Normal 27.0-32.0 [facility] Comment on above: Performed By: #### L 300.4310, M100.651, BTSPAT, L100.0100, L3400.0100, L500.2500, L300.3900, L501.9985 ####[facility] [address] [place], [address] MCHC (RBC) [Mass/Vol] 34.1 g/dL Normal 32-36 [facility] Comment on above: Performed By: #### L 300.4310, M100.651, BTSPAT, L100.0100, L3400.0100, L500.2500, L300.3900, L501.9985 ####[facility] [address] [place], [address] MCV (RBC) [Entitic vol] 91.9 fL Normal 80-94 [facility] Comment on above: Performed By: #### L 300.4310, M100.651, BTSPAT, L100.0100, L3400.0100, L500.2500, L300.3900, L501.9985 ####[facility] [address] [place], [address] Monocytes/100 WBC (Bld) 7.2 % Normal 0-10 [facility] Comment on above: Performed By: #### L 300.4310, M100.651, BTSPAT, L100.0100, L3400.0100, L500.2500, L300.3900, L501.9985 ####[facility] [address] [place], [address] Neutrophils/100 WBC (Bld) 54.5 % Normal 47-70 [facility] Comment on above: Performed By: #### L 300.4310, M100.651, BTSPAT, L100.0100, L3400.0100, L500.2500, L300.3900, L501.9985 ####[facility] [address] [place], [address] Nucleated RBC (Bld) [#/Vol] 0 10*3/uL Normal 0-5 [facility] Comment on above: Performed By: #### L 300.4310, M100.651, BTSPAT, L100.0100, L3400.0100, L500.2500, L300.3900, L501.9985 ####[facility] [address] [place], [address] Platelet mean volume (Bld) [Entitic vol] 9.3 fL Normal 6.2-12.0 [facility] Comment on above: Performed By: #### L 300.4310, M100.651, BTSPAT, L100.0100, L3400.0100, L500.2500, L300.3900, L501.9985 ####[facility] [address] [place], [address] Platelets (Bld) [#/Vol] 224 10*3/uL Normal 150-450 [facility] Comment on above: Performed By: #### L 300.4310, M100.651, BTSPAT, L100.0100, L3400.0100, L500.2500, L300.3900, L501.9985 ####[facility] [address] [place], [address] RBC (Bld) [#/Vol] 5.04 10*6/uL Normal 4.6-6.2 [facility] Comment on above: Performed By: #### L 300.4310, M100.651, BTSPAT, L100.0100, L3400.0100, L500.2500, L300.3900, L501.9985 ####[facility] [address] [place], [place], [phone] RDW SD 45.1 fl High 35.1-43.9 [facility] Comment on above: Performed By: #### L 300.4310, M100.651, BTSPAT, L100.0100, L3400.0100, L500.2500, L300.3900, L501.9985 ####[facility] [address] [place], [place], [phone]) WBC (Bld) [#/Vol] 8.4 10*3/uL Normal 4.4-11.0 [facility] Comment on above: Performed By: #### L 300.4310, M100.651, BTSPAT, L100.0100, L3400.0100, L500.2500, L300.3900, L501.9985 ####[facility] [address] [facility] [address] [place], [place], [id number] Carbon dioxide, total [Moles /volume] in Central venous bloodOrdered By: Rasheed Galindo on 02-03-2025 CO2 [Moles/Vol] 23.9 mmol/L 21.0-32.0 [facility] Chloride assayOrdered By: Marcella Galindo on 02-03-2025 Chloride [Moles/Vol] 103 mmol/L 98-108 [facility] Eosinophil percentageOrdered By: Rasheed Galindo on 02-03-2025 Eosinophils/100 WBC (Bld) 2.3 % 0-5 [facility] Erythrocyte distribution wid th ratioOrdered By: Rasheed Galindo on 02-03-2025 Erythrocyte distribution width (RBC) [Ratio] 13.3 % 11.6-14.6 [facility] Erythrocyte distribution wid th standard deviationOrdered By: Rasheed Galindo on 02-03-2025 Erythrocyte distribution width (RBC) [Ratio] 45.1 fl High 35.1-43.9 [facility] Extremity Lower without Cont raon 02-03-2025 Extremity Lower without Contra Normal [facility] Glomerular filtration rate ( GFR) estimation/1.73 sq m using serum, plasma, or whole bOrdered By: Rasheed Galindo on 02-03-2025 GFR/1.73 sq M.predicted among non-blacks MDRD (S/P/Bld) [Vol rate/Area] 44 mL/min/{1.73_m2} Low >60 [facility] Comment on above: mL/min/1.73m2 CKD-EP I Creatinine Equation (2020) Hematocrit Auto (Bld) [Volum e fraction]Ordered By: Rasheed Galindo on 02-03-2025 Hematocrit (Bld) [Volume fraction] 46.3 % 40-54 [facility] Hemoglobin A1con 02-03-2025 HbA1c (Bld) [Mass fraction] 6.6 % High <=5.6 [facility] Comment on above: Result Comment: Norm al < 5.7 % Prediabetic 5.7 - 6.4 % Diabetic >or= 6.5 % Please note range changes. Performed By: #### L 300.4310, M100.651, BTSPAT, L100.0100, L3400.0100, L500.2500, L300.3900, L501.9985 ####[facility] [address] [place], [address] Hemoglobin A1c percentageOrd ered By: Rasheed Galindo on 02-03-2025 HbA1c (Bld) [Mass fraction] 6.6 % High <5.7 [facility] Comment on above: Normal < 5.7 % Predi abetic 5.7 - 6.4 % Diabetic >or= 6.5 % Please note range changes. Hemoglobin measurementOrdere d By: Rasheed Galindo on 02-03-2025 Hemoglobin (Bld) [Mass/Vol] 15.8 g/dL 13.0-16.5 [facility] Immature granulocytes/100 WB C Auto (Bld)Ordered By: Rasheed Galindo on 02-03-2025 Immature granulocytes/100 WBC (Bld) 0.400 % 0.0-0.9 [facility] Comment on above: IG% - Immature Granu locytes (promyelocytes, myelocytes and metamyelocytes) > 1% indicates that a LEFT SHIFT is Present. International normalized rat io (INR) calculationOrdered By: Rasheed Galindo on 02-03-2025 INR Coag (Bld) [Relative time] 1.0 {INR} [facility] MCV (mean corpuscular volume ) determinationOrdered By: Rasheed Galindo on 02-03-2025 MCV (RBC) [Entitic vol] 91.9 fL 80-94 [facility] MRSA screenOrdered By: Hiram Galindo on 02-03-2025 MRSA DNA MATEO+probe Ql (Unsp spec) [facility] [facility] Magnesiumon 02-03-2025 Magnesium [Mass/Vol] 2.2 mg/dL Normal 1.5-2.2 [facility] Comment on above: Performed By: #### L 501.5200 ####[facility] [address] [place], [address] Magnesium measurement (mass/ volume)Ordered By: Adonis Falcon on 02-03-2025 Magnesium (Unsp spec) [Mass/Vol] 2.2 mg/dL 1.5-2.2 [facility] Mean corpuscular hemoglobin (MCH) determinationOrdered By: Rasheed Galindo on 02-03-2025 MCH (RBC) [Entitic mass] 31.3 pg 27.0-32.0 [facility] Mean corpuscular hemoglobin concentration (MCHC) determinationOrdered By: Rasheed Galindo on 02-03-2025 MCHC (RBC) [Mass/Vol] 34.1 g/dL 32-36 [facility] Mean platelet volume determi nationOrdered By: Rasheed Galindo on 02-03-2025 Platelet mean volume (Bld) [Entitic vol] 9.3 fL 6.2-12.0 [facility] Monocyte percentageOrdered B y: Rasheed Galindo on 02-03-2025 Monocytes/100 WBC (Bld) 7.2 % 0-10 [facility] Neutrophil percentageOrdered By: Rasheed Galindo on 02-03-2025 Neutrophils/100 WBC (Bld) 54.5 % 47-70 [facility] Nucleated red blood cell per centageOrdered By: Rasheed Galindo on 02-03-2025 Nucleated RBC/100 WBC (Bld) [Ratio] 0 % 0-5 [facility] Partial Thromboplast Timeon 02-03-2025 aPTT Coag (Bld) [Time] 24.6 s Normal 24.1-36.2 [facility] Comment on above: Performed By: #### L 300.4310, M100.651, BTSPAT, L100.0100, L3400.0100, L500.2500, L300.3900, L501.9985 ####[facility] [address] [place], [address] Platelet countOrdered By: Marcella Galindo on 02-03-2025 Platelets (Bld) [#/Vol] 224 10*3/uL 150-450 [facility] Potassium measurement (mass/ volume)Ordered By: Rasheed Galindo on 02-03-2025 Potassium (Unsp spec) [Mass/Vol] 4.6 mmol/L 3.3-5.1 [facility] Prothrombin Time w/INRon INR Coag (PPP) [Relative time] 1.0 {INR} Normal [facility] Comment on above: Performed By: #### L 300.4310, M100.651, BTSPAT, L100.0100, L3400.0100, L500.2500, L300.3900, L501.9985 ####[facility] [id number] [place], [address] PT Coag (PPP) [Time] 13.0 s Normal 11.7-14.9 [facility] Comment on above: Performed By: #### L 300.4310, M100.651, BTSPAT, L100.0100, L3400.0100, L500.2500, L300.3900, L501.9985 ####[facility] [address] [place], [address] Prothrombin timeOrdered By: Rasheed Galindo on 02-03-2025 PT Coag (PPP) [Time] 13.0 s 11.7-14.9 [facility] RBC Auto (Bld) [#/Vol]Ordere d By: Rasheed Galindo on 02-03-2025 RBC (Bld) [#/Vol] 5.04 10*6/uL 4.6-6.2 [facility] Serum creatinine measurement (mass/volume)Ordered By: Rasheed Galindo on 02-03-2025 Creatinine [Mass/Vol] 1.59 mg/dL High 0.70-1.20 [facility] Serum glucose measurement (m ass/volume)Ordered By: Rasheed Galindo on 02-03-2025 Glucose [Mass/Vol] 171 mg/dL High 70-99 [facility] Serum or plasma calcium esperanza urement (mass/volume)Ordered By: Rasheed Galindo on 02-03-2025 Calcium [Mass/Vol] 9.4 mg/dL 7.6-11.0 [facility] Serum or plasma urea nitroge n measurement (mass/volume)Ordered By: Rasheed Galindo on 02-03-2025 Urea nitrogen [Mass/Vol] 18 mg/dL 4-19 [facility] Sodium levelOrdered By: Flavio Galindo on 02-03-2025 Sodium [Moles/Vol] 139 mmol/L 133-145 [facility] Type AND Screen - PAT ONLYon 02-03-2025 ABO and Rh group Nom (Bld) Blood group A Rh(D) negative Normal [facility] Comment on above: Order Comment: Surge ry Date: 02/14/25Reason for Laboratory Test [id number] THR Performed By: #### L 300.4310, M100.651, BTSPAT, L100.0100, L3400.0100, L500.2500, L300.3900, L501.9985 ####[facility] [id number] [place], [address] White blood cell (WBC) count Ordered By: Rasheed Galindo on 02-03-2025 WBC (Bld) [#/Vol] 8.4 10*3/uL 4.4-11.0 [facility] CBC (INCLUDES DIFF/PLT)on Basophils (Bld) [#/Vol] 0.059 10*3/uL Normal 0-200 [facility] Comment on above: Performed By: #### 6 399 #### [facility] of [address], [address] [place] [address] Control Room Operator: Ed Mccollum MD Basophils/100 WBC (Bld) 0.7 % Normal [facility] Comment on above: Performed By: #### 6 399 #### [facility] of [address], [address] [place] [address] Control Room Operator: Ed Mccollum MD Eosinophils (Bld) [#/Vol] 0.16 10*3/uL Normal 15-500 [facility] Comment on above: Performed By: #### 6 399 #### [facility] of [place] [address] Control Room Operator: Ed Mccollum MD Eosinophils/100 WBC (Bld) 1.9 % Normal [facility] Comment on above: Performed By: #### 6 399 #### [facility] of [place] [address] Control Room Operator: Ed Mccollum MD Erythrocyte distribution width (RBC) [Ratio] 13.5 % Normal 11.0-15.0 [facility] Comment on above: Performed By: #### 6 399 #### [facility] of [place] [address] Control Room Operator: Ed Mccollum MD Hematocrit (Bld) [Volume fraction] 51.4 % High 38.5-50.0 [facility] Comment on above: Performed By: #### 6 399 #### [facility] of [place] [address] Control Room Operator: Ed Mccollum MD Hemoglobin (Bld) [Mass/Vol] 16.5 g/dL Normal 13.2-17.1 [facility] Comment on above: Performed By: #### 6 399 #### [facility] of [place] [address] Control Room Operator: Ed Mccollum MD Lymphocytes (Bld) [#/Vol] 2.789 10*3/uL Normal 850-3900 [facility] Comment on above: Performed By: #### 6 399 #### [facility] [place] [address] Control Room Operator: Ed Mccollum MD Lymphocytes/100 WBC (Bld) 33.2 % Normal [facility] Comment on above: Performed By: #### 6 399 #### [facility] [place] [address] Control Room Operator: Ed Mccollum MD MCH (RBC) [Entitic mass] 31.7 pg Normal 27.0-33.0 [facility] Comment on above: Performed By: #### 6 399 #### [facility] [place] [address] Control Room Operator: Ed Mccollum MD MCHC (RBC) [Mass/Vol] 32.1 g/dL Normal 32.0-36.[address] [facility] Comment on above: Result Comment: For adults, a slight decrease in the calculated MCHC value (in the range of 30 to 32 g/dL) is most likely not clinically significant; however, it should be interpreted with caution in correlation with other red cell parameters and the patient's clinical condition. Performed By: #### 6 399 #### [facility] [place] [address] Control Room Operator: Ed Mccollum MD MCV (RBC) [Entitic vol] 98.8 fL Normal 80.0-100.0 [facility] Comment on above: Performed By: #### 6 399 #### [facility] of [place] [address] Control Room Operator: Ed Mccollum MD Monocytes (Bld) [#/Vol] 0.672 10*3/uL Normal 200-950 [facility] Comment on above: Performed By: #### 6 399 #### [facility] of [place] [address] Control Room Operator: Ed Mccollum MD Monocytes/100 WBC (Bld) 8.0 % Normal [facility] Comment on above: Performed By: #### 6 399 #### [facility] of [place] [address] Control Room Operator: Ed Mccollum MD Neutrophils (Bld) [#/Vol] 4.721 10*3/uL Normal 1193-8421 [facility] Comment on above: Performed By: #### 6 399 #### [facility] of [place] [address] Control Room Operator: Ed Mccollum MD Neutrophils/100 WBC (Bld) 56.2 % Normal [facility] Comment on above: Performed By: #### 6 399 #### [facility] of [place] [address] Control Room Operator: Ed Mccollum MD Platelet mean volume (Bld) [Entitic vol] 9.1 fL Normal 7.5-12.5 [facility] Comment on above: Performed By: #### 6 399 #### [facility] of [place] [address] Control Room Operator: Ed Mccollum MD Platelets (Bld) [#/Vol] 232 10*3/uL Normal 140-400 [facility] Comment on above: Performed By: #### 6 399 #### [facility] of [place] [address] Control Room Operator: Ed Mccollum MD RBC (Bld) [#/Vol] 5.20 10*6/uL Normal 4.20-5.80 [facility] Comment on above: Performed By: #### 6 399 #### [facility] of [place] [address] Control Room Operator: Ed Mccollum MD WBC (Bld) [#/Vol] 8.4 10*3/uL Normal 3.8-10.8 [facility] Comment on above: Performed By: #### 6 399 #### [facility] [address], [address] [place], [place] [address] Control Room Operator: Ed Mccollum MD HEMOGLOBIN A1con 01-25-2025 HbA1c (Bld) [Mass fraction] 6.5 % High <5.7 [facility] Comment on above: Result Comment: For someone without known diabetes, a hemoglobin A1c value of 6.5% or greater indicates that they may have diabetes and this should be confirmed with a follow-up test. For someone with known diabetes, a value <7% indicates that their diabetes is well controlled and a value greater than or equal to 7% indicates suboptimal control. A1c targets should be individualized based on duration of diabetes, age, comorbid conditions, and other considerations. Currently, no consensus exists regarding use of hemoglobin A1c for diagnosis of diabetes for children. Performed By: #### 6 399 #### [facility] [address], [address] [place] [address] Control Room Operator: Ed Mccollum MD Laboratory - Hematology and Cell countson 01-24-2025 Basophils (Bld) [#/Vol] 0.059 10*3/uL Normal 0 - 200 {cells/uL} [employer] Basophils/100 WBC (Bld) 0.7 % Normal [facility] [employer] [facility], [employer] Eosinophils (Bld) [#/Vol] 0.16 10*3/uL Normal 15 - 500 {cells/uL} [employer] Eosinophils/100 WBC (Bld) 1.9 % Normal [employer] Erythrocyte distribution width (RBC) [Ratio] 13.5 % Normal 11.0 - 15.0 % [employer] [facility], [facility] [employer] [facility], [facility] HbA1c (Bld) [Mass fraction] 6.5 % Abnormal [employer] [facility], [facility] Hematocrit (Bld) [Volume fraction] 51.4 % Abnormal 38.5 - 50.0 % [employer] [facility], [facility] Hemoglobin (Bld) [Mass/Vol] 16.5 g/dL Normal 13.2 - 17.1 g/dL [facility].; [employer], [facility]. Lymphocytes (Bld) [#/Vol] 2.789 10*3/uL Normal 850 - 3900 {cells/uL} [facility], [facility].; [employer], [facility]. Lymphocytes/100 WBC (Bld) 33.2 % Normal [facility].; [email or web address] [facility], [facility]. MCH (RBC) [Entitic mass] 31.7 pg Normal 27. 0 - 33.0 pg [facility].; [employer], [facility]. MCHC (RBC) [Mass/Vol] 32.1 g/dL Normal 32.0 - 36.0 g/dL [facility], [facility].; [employer], [facility]. MCV (RBC) [Entitic vol] 98.8 fL Normal 80.0 - 100.0 fL [facility].; [employer], [facility]. Monocytes (Bld) [#/Vol] 0.672 10*3/uL Normal 200 - 950 {cells/uL} [employer], [facility].; [employer], [employer]. Monocytes/100 WBC (Bld) 8.0 % Normal [facility].; [email or web address] [facility], [facility]. Neutrophils (Bld) [#/Vol] 4.721 10*3/uL Normal 1500 - 7800 {cells/uL} [email or web address] [facility], [facility].; [employer] Neutrophils/100 WBC (Bld) 56.2 % Normal [facility].; [employer], [facility]. Platelet mean volume (Bld) [Entitic vol] 9.1 fL Normal 7.5 - 12.5 fL [employer] [facility].; [employer], [facility]. Platelets (Bld) [#/Vol] 232 10*3/uL Normal 140 - 400 [employer], [employer] RBC (Bld) [#/Vol] 5.20 10*6/uL Normal 4.20 - 5.8 0 {Million/uL} [employer]. WBC (Bld) [#/Vol] 8.4 10*3/uL Normal 3.8 - 10.8 [employer] HIP, UNI W/ Pelvis 2-3 Views on 01-13-2025 HIP, UNI W/ Pelvis 2-3 Views Normal [facility] Lumbar Spine 2 or 3 Viewson 01-13-2025 Lumbar Spine 2 or 3 Views Normal [facility] Orthopedic Visit Reporton Orthopedic Visit Report Normal [facility] HIP LT 2 OR 3 VIEWSon 2023 HIP LT 2 OR 3 VIEWS EXAM: Left hip HISTORY: . Pain of left hip joint . COMPARISON: None. TECHNIQUE: 2 views FINDINGS: Marked narrowing of the hip joint is noted. There is sclerosis of the superior acetabular rim. There is sclerosis of the superolateral aspect of the humeral head. Spurs are noted involving the femoral head as well as the acetabulum. No fracture or dislocation is noted. Vascular calcifications are noted in the soft tissues medially. IMPRESSION: Marked osteoarthritic changes of the left hip. Normal [facility] Laboratory - Hematology and Cell countson 08-05-2022 HbA1c (Bld) [Mass fraction] 7.3 % Abnormal 4.6 - 7.1 % [employer] Laboratory - Cytologyon 05-02 Pathologist Cyto stain Nom (Cvx/Vag) [ID] SEE NOTE Normal [employer]. No Panel Informationon 05-23 A DIAGNOSIS SEE NOTE Normal [employer]. A GROSS DESCRIPTION SEE NOTE Normal [employer]. A MICRO DESCRIPTION SEE NOTE Normal [employer].; [employer], [employer]. A SOURCE SEE NOTE Normal [employer]. CLINICAL INFORMATION SEE NOTE Normal [employer], [employer]. BUNon 05-24-2018 Urea nitrogen mass conc 26 mg/dL High 6 - 20 [facility] Comment on above: Performed By: #### 2 [id number] ####[facility],[address] [place] [address] CREATININEon 05-24-2018 Creatinine mass conc 1.5 mg/dL High 0.7 - 1.3 [facility] Comment on above: Performed By: #### 2 72813 ####[facility],[address] [place] [address] ABDOMEN/PELVIS Won 2017 CT ABDOMEN/PELVIS [address] [address] Patient: JEREMIAH VILLA Phone#: : 1945 Age: 72 Gender: M Pt. Type: Out Account: [id number] Location: Ordering: [facility] Exam Date: 05/24/2018/13:59 Family Phys: Charge Code: 555212 Physician: Spencer Order #: [id number] DLP Dose#: PROCEDURE: CT ABDOMEN/PELVIS WITH CONTRAST COMPARISON: None. INDICATIONS: Abdominal pain TECHNIQUE: After obtaining the patient's consent, CT images were created with non-ionic intravenous contrast and oral contrast material. All CT scans at this facility use dose modulation, iterative reconstruction, and/or weight based dosing when appropriate to reduce radiation dose to as low as reasonably achievable. IV CONTRAST: Omnipaque 350,80ml TOTAL DOSE: 61.00 CTDIvol(mGy) FINDINGS: LIVER: Normal. No enlargement, atrophy, abnormal density, or significant focal lesion. BILIARY: A 3.4 cm gallbladder calculus is present. There is no evidence of biliary dilatation. PANCREAS: Normal. No lesion, fluid collection, ductal dilatation, or atrophy. SPLEEN: Normal. No enlargement or focal lesion. KIDNEYS: The right kidney is atrophic. There is a 13 mm right renal cortical cyst. A 30 minute mater left renal cortical cyst is present. The kidneys otherwise unremarkable. There is no evidence of hydronephrosis. ADRENALS: Normal. No mass or enlargement. AORTA/VASCULAR: Normal. No aneurysm or dissection. RETROPERITONEUM: Normal. No mass or adenopathy. BOWEL/MESENTERY: There is moderate stool retention in the distal colon.. No visible mass, obstruction, or bowel wall thickening. A small hiatal hernia is present. ABDOMINAL WALL: Normal. No mass or hernia. Continued Report - Page 2 of 2 Patient: JEREMIAH VILLA Phone#: : 1945 Age: 72 Gender: M Pt. Type: Out Account: [id number] Location: Ordering: [facility] Exam Date: 05/24/2018/13:59 Family Phys: Charge Code: 750288 Physician: Spencer Order #: [id number] DLP Dose#: URINARY BLADDER: Normal. No visible focal wall thickening, lesion, or calculus. PELVIC NODES: Normal. No adenopathy. PELVIC ORGANS: Normal. No visible mass. Pelvic organs appropriate for patient age. 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 LUNG BASES: Normal. No visible pulmonary or pleural disease. OTHER: Negative. CONCLUSION: 1. 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 2. Cholelithiasis. 3. Moderate stool retention is present in the proximal and distal colon. Dictated by: Sophie Murray MD on 05/24/2018 at 14:42 Approved by: Sophie Murray MD on 05/24/2018 at 14:42 Normal [facility] Vital Signs Date Time Vital Sign Value Performing Clinician Facility 04-13-2025 13:09-0400 Body temperature 97.9 [degF] Dr. Tess Hernandez MD Work Phone: [facility] 04-13-2025 13:09-0400 Diastolic blood pressure 77 mm[Hg] Dr. Tess Hernandez MD Work Phone: [facility] 04-13-2025 13:09-0400 Heart rate 92 /min Dr. Tess Hernandez MD Work Phone: [facility] 04-13-2025 13:09-0400 Respiratory rate 18 /min Dr. Tess Hernandez MD Work Phone: [facility] 04-13-2025 13:09-0400 Systolic blood pressure 150 mm[Hg] Dr. Tess Hernandez MD Work Phone: [facility] 03-27-2025 14:34-0400 Body height 180.[address] Tess Hernandez MD Work Phone: [facility] 03-27-2025 14:34-0400 Body mass index (BMI) [Ratio] 35.6 kg/m2 Dr. Tess Hernandez MD Work Phone: [facility] 03-27-2025 14:34-0400 Body temperature 97.1 [degF] Dr. Tess Hernandez MD Work Phone: [facility] 03-27-2025 14:34-0400 Body weight 115.[address] Tess Hernandez MD Work Phone: [facility] 03-27-2025 14:34-0400 Diastolic blood pressure 68 mm[Hg] Dr. Tess Hernandez MD Work Phone: [facility] 03-27-2025 14:34-0400 Heart rate 92 /min Dr. Tess Hernandez MD Work Phone: [facility] 03-27-2025 14:34-0400 Respiratory rate 18 /min Dr. eTss Hernandez MD Work Phone: [facility] 03-27-2025 14:34-0400 Systolic blood pressure 151 mm[Hg] Dr. Tess Hernandez MD Work Phone: [facility] 03-09-2025 09:31-0400 Body height 177.8 cm Yesica Johnston LPN [facility], [facility].; [facility], [facility]. 03-09-2025 09:31-0400 Body mass index (BMI) [Ratio] 37.59 kg/m2 Yesica Johnston LPN [facility], [facility].; [facility], [facility]. 03-09-2025 09:31-0400 Body surface area Derived from formula 2.34 m2 Yesica Johnston LPN [facility], [facility].; [facility], [facility]. 03-09-2025 09:31-0400 Body temperature 97.9 [degF] Yesica Johnston LPN [facility], [facility].; [facility], [facility]. Comment on above: Method: Tympanic 03-09-2025 09:31-0400 Body weight 118.84 kg [facility], [facility].; [facility]. 03-09-2025 09:31-0400 Diastolic blood pressure 66 mm[Hg] [facility], [facility]. Comment on above: Patient Position: Sitting; Cuff Location : Left Arm; Cuff Size: Standard 03-09-2025 09:31-0400 Heart rate 93 /min [facility], [facility].; [email or web address] [facility]. Comment on above: Pattern: Regular 03-09-2025 09:31-0400 Systolic blood pressure 121 mm[Hg] [facility].; [facility], [facility]. Comment on above: Patient Position: Sitting; Cuff Location : Left Arm; Cuff Size: Standard 02-28-2025 18:29-0400 Body temperature 98 [degF] Dr. Tess Hernandez MD Work Phone: [facility] 02-28-2025 18:29-0400 Diastolic blood pressure 70 mm[Hg] Dr. Tess Hernandez MD Work Phone: [facility] 02-28-2025 18:29-0400 Heart rate 88 /min Dr. Tess Hernandez MD Work Phone: [facility] 02-28-2025 18:29-0400 Respiratory rate 17 /min Dr. Tess Hernandez MD Work Phone: [facility] 02-28-2025 18:29-0400 SaO2% (BldA) [Mass fraction] 98 % Dr. Tess Hernandez MD Work Phone: [facility] 02-28-2025 18:29-0400 Systolic blood pressure 130 mm[Hg] Dr. Tess Hernandez MD Work Phone: [facility] 02-28-2025 07:15-0400 Inhaled oxygen concentration 21 % Dr. Tess Hernandez MD Work Phone: [facility] 02-27-2025 14:18-0400 Body height 180.[address] Tess Hernandez MD Work Phone: [facility] 02-27-2025 14:18-0400 Body weight 128.[address] Tess Hernandez MD Work Phone: [facility] 02-22-2025 14:42-0400 Body mass index (BMI) [Ratio] 39.6 kg/m2 Dr. Tess Hernandez MD Work Phone: [facility] 02-20-2025 01:00-0400 Inhaled oxygen flow rate 2 L/min Dr. Tess Hernandez MD Work Phone: [facility] 02-17-2025 10:15-0400 Body temperature 98.3 [degF] Dr. Tess Hernandez MD Work Phone: [facility] 02-17-2025 10:15-0400 Diastolic blood pressure 57 mm[Hg] Dr. Tess Hernandez MD Work Phone: [facility] 02-17-2025 10:15-0400 Heart rate 92 /min Dr. Tess Hernandez MD Work Phone: [facility] 02-17-2025 10:15-0400 Respiratory rate 16 /min Dr. Tess Hernandez MD Work Phone: [facility] 02-17-2025 10:15-0400 SaO2% (BldA) [Mass fraction] 95 % Dr. Tess Hernandez MD Work Phone: [facility] 02-17-2025 10:15-0400 Systolic blood pressure 132 mm[Hg] Dr. Tess Hernandez MD Work Phone: [facility] 02-17-2025 04:46-0400 Body mass index (BMI) [Ratio] 38.2 kg/m2 Dr. Tess Hernandez MD Work Phone: [facility] 02-17-2025 04:46-0400 Body weight 123.[address] Tess Hernandez MD Work Phone: [facility] 02-16-2025 07:05-0400 Inhaled oxygen flow rate 2 L/min Dr. Tess Hernandez MD Work Phone: [facility] 02-15-2025 12:39-0400 Inhaled oxygen concentration 30 % Dr. Tess Hernandez MD Work Phone: [facility] 02-15-2025 12:04-0400 Body height 180.[address] Tess Hernandez MD Work Phone: [facility] 01-24-2025 10:130400 Body height 177.8 cm Yesica Johnston [facility].; [facility]. 01-24-2025 10:130400 Body mass index (BMI) [Ratio] 37.59 kg/m2 [facility]. 01-24-2025 10:130400 Body surface area Derived from formula 2.34 m2 [facility], [facility]. 01-24-2025 10:13040 Body weight 118.84 kg [facility], [facility]. 01-24-2025 10:13-0400 Diastolic blood pressure 74 mm[Hg] [facility], [facility]. Comment on above: Patient Position: Sitting; Cuff Location : Left Arm; Cuff Size: Standard 01-24-2025 10:130400 Heart rate 89 /min Yesica Johnston REMOTE SENSING SURVEYOR [facility].; [email or web address] [facility], [employer]. Comment on above: Pattern: Regular 01-24-2025 10:130400 Inhaled oxygen concentration 21 % Yesica Johnston REMOTE SENSING SURVEYOR [facility], [facility].; [employer], [employer]. Comment on above: Room air 01-24-2025 10:13-0400 SaO2% (BldA) [Mass fraction] 99 % Yesica Johnston [facility], [facility].; [facility], [facility]. 01-24-2025 10:13-0400 Systolic blood pressure 130 mm[Hg] Yesica Johnston LPN [facility], [facility].; [facility], [facility]. Comment on above: Patient Position: Sitting; Cuff Location : Left Arm; Cuff Size: Standard 01-13-2025 10:22-0400 Body height 180.[address] Tess Hernandez MD Work Phone: [facility] 01-13-2025 10:22040 Body mass index (BMI) [Ratio] 36.9 kg/m2 Dr. Tess Hernandez MD Work Phone: [facility] 01-13-2025 10:040 Body weight 120.[address] Tess Hernandez MD Work Phone: [facility] 09-01-2023 09:52-0500 Body weight 123.83 kg Jorje Valdez LPN [facility] 09-01-2023 09:52-0500 Diastolic blood pressure 75 mm[Hg] Jorje Valdez LPN [facility], [facility].; [facility], [employer]. Comment on above: Patient Position: Sitting; Cuff Location : Left Arm; Cuff Size: Standard 09-01-2023 09:52-0500 Heart rate 70 /min Jorje Valdez LPN [facility] [email or web address] [facility] Comment on above: Pattern: Regular 09-01-2023 09:52-0500 Systolic blood pressure 159 mm[Hg] Jorje Valdez LPN [facility] [email or web address] [facility] Comment on above: Patient Position: Sitting; Cuff Location : Left Arm; Cuff Size: Standard 04-14-2023 10:27-0400 Diastolic blood pressure 75 mm[Hg] Jessica Coburn RN [facility], [facility].; [email or web address] [facility], [employer]. Comment on above: Patient Position: Sitting; Cuff Location : Left Arm; Cuff Size: Large 04-14-2023 10:27-0400 Heart rate 67 /min Jessica Coburn RN [facility], [facility].; [email or web address] [facility], [employer]. Comment on above: Pattern: Regular 04-14-2023 10:27-0400 Systolic blood pressure 136 mm[Hg] Jessica Coburn RN [employer].; [employer]. Comment on above: Patient Position: Sitting; Cuff Location : Left Arm; Cuff Size: Large 04-14-2023 10:25-0400 Body height 177.8 cm Jessica Coburn RN [employer].; [employer]. 04-14-2023 10:25-0400 Body mass index (BMI) [Ratio] 37.45 kg/m2 Jessica Coburn RN [employer].; [employer]. 04-14-2023 10:25-0400 Body surface area Derived from formula 2.34 m2 Jessica Coburn RN [employer].; [employer]. 04-14-2023 10:25-0400 Body weight 118.39 kg Jessica Coburn RN [employer].; [employer]. 04-14-2023 10:25-0400 Diastolic blood pressure 73 mm[Hg] Jessica Coburn RN [employer].; [employer]. Comment on above: Patient Position: Sitting; Cuff Location : Left Arm; Cuff Size: Large 04-14-2023 10:25-0400 Heart rate 66 /min Jessica Coburn RN [employer].; [employer]. Comment on above: Pattern: Regular 04-14-2023 10:25-0400 Systolic blood pressure 143 mm[Hg] Jessica Coburn RN [employer].; [employer]. Comment on above: Patient Position: Sitting; Cuff Location : Left Arm; Cuff Size: Large 09-16-2022 10:05-0500 Diastolic blood pressure 91 mm[Hg] Janee Degroot LPN Work Phone: [employer]. Comment on above: Patient Position: Sitting; Cuff Location : Left Arm; Cuff Size: Standard 09-16-2022 10:05-0500 Heart rate 93 /min Janee Degroot REMOTE SENSING SURVEYOR Work Phone: [employer]. Comment on above: Pattern: Regular 09-16-2022 10:05-0500 Systolic blood pressure 181 mm[Hg] Janee Degroot LPN Work Phone: [employer]. Comment on above: Patient Position: Sitting; Cuff Location : Left Arm; Cuff Size: Standard 09-12-2022 14:14-0500 Diastolic blood pressure 84 mm[Hg] Luke E Oanh PA-C Work Phone: [employer]. Comment on above: Patient Position: Sitting; Cuff Location : Left Arm; Cuff Size: Standard 09-12-2022 14:14-0500 Systolic blood pressure 160 mm[Hg] Luke E Oanh PA-C Work Phone: [employer].; [employer]. Comment on above: Patient Position: Sitting; Cuff Location : Left Arm; Cuff Size: Standard 09-12-2022 14:14-0500 Diastolic blood pressure 104 mm[Hg] Luke E Oanh PA-C Work Phone: [facility] [employer]. Comment on above: Patient Position: Sitting; Cuff Location : Right Arm; Cuff Size: Standard 09-12-2022 14:14-0500 Systolic blood pressure 172 mm[Hg] Luke E Oanh PA-C Work Phone: [employer].; [employer]. Comment on above: Patient Position: Sitting; Cuff Location : Right Arm; Cuff Size: Standard 09-12-2022 13:12-0500 Body height 177.8 cm Luke E Oanh PA-C Work Phone: [employer].; [employer]. 09-12-2022 13:12-0500 Body mass index (BMI) [Ratio] 39.31 kg/m2 Luke E Oanh PA-C Work Phone: [employer]. 09-12-2022 13:12-0500 Body surface area Derived from formula 2.39 m2 Luke E Oanh PA-C Work Phone: [employer].; [employer]. 09-12-2022 13:12-0500 Body weight 124.29 kg Luke E Oanh PA-C Work Phone: [employer].; [employer]. 09-12-2022 13:12-0500 Diastolic blood pressure 72 mm[Hg] Luke E Oanh PA-C Work Phone: [employer].; [employer]. Comment on above: Patient Position: Sitting; Cuff Location : Left Arm; Cuff Size: Standard 09-12-2022 13:12-0500 Heart rate 89 /min Luke E Oanh PA-C Work Phone: [facility] [employer] [facility]; [employer]. Comment on above: Pattern: Regular 09-12-2022 13:12-0500 Systolic blood pressure 122 mm[Hg] Luke E Oanh PA-C Work Phone: [employer].; [employer]. Comment on above: Patient Position: Sitting; Cuff Location : Left Arm; Cuff Size: Standard 08-05-2022 10:16-050 Body height 177.8 cm Karen Zaragoza MA [facility].; [employer] [facility]. 08-05-2022 10:16-0500 Body mass index (BMI) [Ratio] 38.74 kg/m2 Karen Zaragoza MA [facility].; [employer] [facility]. 08-05-2022 10:16-0500 Body surface area Derived from formula 2.37 m2 Karen Zaragoza MA [facility].; [employer]. 08-05-2022 10:16-0500 Body weight 122.47 kg Karen Zaragoza MA [facility].; [employer] [facility]. 08-05-2022 10:16-0500 Diastolic blood pressure 70 mm[Hg] Karen Mila CEE [facility].; [employer]. Comment on above: Patient Position: Sitting; Cuff Location : Left Arm; Cuff Size: Standard 08-05-2022 10:16-0500 Heart rate 87 /min Karen Zaragoza MA [facility].; [employer]. Comment on above: Pattern: Regular 08-05-2022 10:16-0500 Systolic blood pressure 166 mm[Hg] Karen Mila CEE [facility].; [employer]. Comment on above: Patient Position: Sitting; Cuff Location : Left Arm; Cuff Size: Standard 08-05-2022 10:16-0500 Diastolic blood pressure 97 mm[Hg] Karen Mila CEE [facility].; [employer]. Comment on above: Patient Position: Sitting; Cuff Location : Left Arm; Cuff Size: Standard 08-05-2022 10:16-0500 Heart rate 80 /min Karen Zaragoza MA [facility].; [employer]. Comment on above: Pattern: Regular 08-05-2022 10:16-0500 Systolic blood pressure 185 mm[Hg] Karen Mila CEE [facility].; [employer]. Comment on above: Patient Position: Sitting; Cuff Location : Left Arm; Cuff Size: Standard 05-23-2022 09:56-0400 Body height 177.8 cm Sonam Mann LPN [facility], [facility].; [employer] [facility]. 05-23-2022 09:56-0400 Body mass index (BMI) [Ratio] 39.03 kg/m2 Sonam Mann LPN [facility].; [employer] [facility], [facility]. 05-23-2022 09:56-0400 Body surface area Derived from formula 2.38 m2 Sonam Mann LPN [facility], [facility].; [employer], [facility]. 05-23-2022 09:56-0400 Body weight 123.38 kg Sonam Mann LPN [facility].; [employer]. 05-23-2022 09:56-0400 Diastolic blood pressure 91 mm[Hg] Sonam Mann LPN [employer]. Comment on above: Patient Position: Sitting; Cuff Location : Left Arm; Cuff Size: Standard 05-23-2022 09:56-0400 Heart rate 80 /min Sonam Mann LPN [employer]. Comment on above: Pattern: Regular 05-23-2022 09:56-0400 Systolic blood pressure 177 mm[Hg] Sonam Mann LPN [employer]. Comment on above: Patient Position: Sitting; Cuff Location : Left Arm; Cuff Size: Standard 02-04-2022 10:10-0400 Diastolic blood pressure 79 mm[Hg] Luke Oanh PA-C Work Phone: [employer].; [employer]. Comment on above: Patient Position: Sitting; Cuff Location : Left Arm; Cuff Size: Large 02-04-2022 10:10-0400 Heart rate 86 /min Luke Oanh PA-C Work Phone: [employer].; [employer]. Comment on above: Pattern: Regular 02-04-2022 10:10-0400 Systolic blood pressure 134 mm[Hg] Luke Oanh PA-C Work Phone: [employer]. Comment on above: Patient Position: Sitting; Cuff Location : Left Arm; Cuff Size: Large 02-04-2022 10:02-0400 Body height 177.8 cm Luke Oanh PA-C Work Phone: [employer].; [employer]. 02-04-2022 10:02-0400 Body mass index (BMI) [Ratio] 38.17 kg/m2 Luke Oanh PA-C Work Phone: [employer].; [employer]. 02-04-2022 10:02-0400 Body surface area Derived from formula 2.36 m2 Luke Oanh PA-C Work Phone: [employer]; [employer] 02-04-2022 10:02-0400 Body weight 120.66 kg Luke Oanh PA-C Work Phone: [employer]; [employer] 02-04-2022 10:02-0400 Diastolic blood pressure 82 mm[Hg] Luke Oanh PA-C Work Phone: [employer]; [employer]. Comment on above: Patient Position: Sitting; Cuff Location : Right Arm; Cuff Size: Large 02-04-2022 10:02-0400 Heart rate 90 /min Luke Oanh PA-C Work Phone: [employer]; [employer]. Comment on above: Pattern: Regular 02-04-2022 10:02-0400 Systolic blood pressure 158 mm[Hg] Luke Oanh PA-C Work Phone: [employer]; [employer]. Comment on above: Patient Position: Sitting; Cuff Location : Right Arm; Cuff Size: Large Encounters Encounter Date Encounter Type Care Provider Facility Start: 05-11-2025 ambulatory [facility] Start: 05-11-2025 ambulatory [facility] Start: 04-13-2025 End: 04-30-2025 Discharged [place] Work Phone: Start: 04-13-2025 Registered [facility] Work Phone: Start: 04-13-2025 End: 04-30-[address] Tess Hernandez MD Work Phone: -[facility] Start: 04-13-2025 Non-patient / Non-visit Dr. Ty perez MD -[facility] Start: 04-13-2025 End: 04-13-[address] Tess Hernandez MD Work Phone: -Cardiovascular Services Start: 04-13-2025 End: 04-13-[address] Jasper Reece MD -[facility] Work Phone: Start: 04-13-2025 End: 04-13-2025 ambulatory Jasper Reece Facility:[facility] Start: 03-27-2025 ambulatory [facility] Start: 03-27-2025 Non-patient / Non-visit Dr. Jasper ambrocio MD -[facility] Start: 03-27-2025 End: 03-27-2025 Medication Kerwin Hugo PA-C Work Phone: [facility]. Start: 03-27-2025 End: 03-30-2025 Discharged [place] Work Phone: Start: 03-27-2025 End: 03-30-[address] Tess Hernandez MD Work Phone: -[facility] Start: 03-27-2025 End: 03-27-[address] Irineo Ortega MD -[facility] Start: 03-27-2025 End: 03-27-[address] Tess Hernandez MD Work Phone: -[facility] Start: 03-21-2025 Non-patient / Non-visit Dr. Ty perez MD -[facility] Start: 03-21-2025 End: 03-21-[address] Tess Hernandez MD Work Phone: -[facility] Services Start: 03-21-2025 End: 03-21-[address] Asia Dodd DO -Cardi[facility] Services Work Phone: Start: 03-21-2025 End: 03-21-2025 ambulatory Asia Dodd Facility:[facility] Start: 03-13-2025 Encounter for other preprocedural examination [facility] Start: 03-09-2025 Review [facility] Work Phone: [facility] Start: 03-09-2025 End: 03-10-2025 Office outpatient visit 40 minutes Kerwin Hugo PA-C Work Phone: [facility] Start: 03-08-2025 Follow-up encounter Kerwin [facility]-C Work Phone: [facility] Start: 03-01-2025 End: 03-01-2025 Telephone follow-up Kerwin Hugo PA-C Work Phone: [facility] Start: 02-28-2025 Non-patient / Non-visit Dr. Tomas Dodd DO [facility] Work Phone: Start: 02-28-2025 Non-patient / Non-visit Dr. Rasheed lino DO [facility] Start: 02-27-2025 ambulatory [facility] Facility: [place] Start: 02-27-2025 Non-patient / Non-visit Dr. Ty perez MD -[facility] Start: 02-27-2025 Non-patient / Non-visit Dr. Tomas Dodd [facility] Work Phone: Start: 02-24-2025 Non-patient / Non-visit Dr. Tomas Dodd [facility] Work Phone: Start: 02-23-2025 Non-patient / Non-visit Dr. Tomas oDdd [facility] Work Phone: Start: 02-21-2025 Non-patient / Non-visit Dr. Tomas Dodd [facility] Work Phone: Start: 02-20-2025 Non-patient / Non-visit Dr. Tomas Dodd [facility] Work Phone: Start: 02-17-2025 End: 02-28-2025 ambulatory Kerwin Oanh Facility:[facility] Start: 02-17-2025 End: 02-28-2025 Evaluation and management of inpatient Dr. Asia Dodd DO -Rehab Unit Work Phone: Start: 02-17-2025 Non-patient / Non-visit Dr. Rasheed lino DO [facility] Start: 02-16-2025 Non-patient / Non-visit Dr. Shraddha hinton MD -[facility] Work Phone: Start: 02-16-2025 Non-patient / Non-visit Dr. Rasheed lino DO [facility] Start: 02-15-2025 Non-patient / Non-visit [facility]. Rasheed lino [facility] Start: 02-15-2025 Non-patient / Non-visit Marco A Ramos nd [facility] Start: 02-15-2025 Non-patient / Non-visit Dr. Shraddha hinton MD -[facility] Work Phone: Start: 02-14-2025 Non-patient / Non-visit Dr. Winter [facility] Work Phone: Start: 02-14-2025 Non-patient / Non-visit Dr. Rasheed lino [facility] Start: 02-14-2025 End: 02-17-2025 Evaluation and management of inpatient Dr. Rasheed Galindo DO [facility] Work Phone: Start: 02-14-2025 ambulatory Rasheed Galindo Facility :[facility] Start: 02-07-2025 Encounter for other preprocedural examination [facility] Start: 02-03-2025 End: 02-03-[address] Tess Hernandez MD Work Phone: [facility] Work Phone: Start: 02-03-2025 End: 02-03-[address] Rasheed Galindo DO [facility] Work Phone: Start: 02-03-2025 End: 02-03-2025 ambulatory Rasheed Galindo Facility:[facility] Start: 01-24-2025 End: 01-25-2025 Office outpatient visit 25 minutes Luke Oanh PA-C Work Phone: [employer] Start: 01-24-2025 End: 01-25-2025 Preprocedural examination done Kerwin Mehtastetler PA-C Work Phone: [employer]; [employer] Start: 01-19-2025 End: 01-19-2025 Historical Summary Luke Oanh PA-C Work Phone: [employer] Start: 01-18-2025 Review Kerwin Goodenl er PA-C Work Phone: [employer] Start: 01-13-2025 End: 01-13-[address] Irineo Ortega MD -[facility] Start: 01-13-2025 End: 01-13-[address] Tess Hernandez MD Work Phone: [facility] Work Phone: Start: 04-04-2024 End: 04-04-2024 ambulatory NONE~[id number] NONE NONE NONE Facility:[facility] Start: 09-01-2023 End: 09-01-2023 Office outpatient visit 15 minutes Luke Oanh PA-C Work Phone: [employer] Start: 04-14-2023 End: 04-14-2023 Office outpatient visit 25 minutes Luke Oanh PA-C Work Phone: [employer] Start: 09-16-2022 End: 09-16-2022 Medication Luke Oanh PA-C Work Phone: [employer] Start: 09-16-2022 End: 09-16-2022 Nursing evaluation of patient and report Luke Oanh PA-C Work Phone: [employer] Start: 09-12-2022 End: 09-12-2022 Office outpatient visit 15 minutes Luke Oanh PA-C Work Phone: [employer] Start: 08-05-2022 End: 08-04-2022 Historical Summary Luke Oanh PA-C Work Phone: [employer] Start: 08-05-2022 End: 08-06-2022 Office outpatient visit 25 minutes Luke Oanh PA-C Work Phone: [employer] Start: 05-30-2022 End: 05-30-2022 Orders Luke Oanh PA-C Work Phone: [employer] Start: 05-23-2022 End: 05-23-2022 Office outpatient visit 15 minutes Luke Oanh PA-C Work Phone: [employer] Start: 02-04-2022 End: 02-04-2022 Office outpatient new 30 minutes Luke Oanh PA-C Work Phone: [employer] Start: 05-24-2018 End: 05-24-2018 Patient encounter [facility] Preprocedural examination done Sonam Mann LPN [employer]. Procedures Date Procedure Procedure Detail Performing Clinician Start: 03-27-2025 Plain x-ray of pelvis and lower extremity Dr. Tess Hernandez MD Work Phone: Start: 02-27-2025 Urnls dip stick/tablet reagent auto microscopy Dr. Tess Hernandez MD Work Phone: Start: 02-27-[address] Tess Hernandez MD Work Phone: Start: 02-27-[address] Tess Hernandez MD Work Phone: Start: 02-20-2025 Serum inorganic phosphate measurement Dr. Tess Hernandez MD Work Phone: Start: 02-17-2025 X-ray of chest, PA and lateral views Dr. Tess Hernandez MD Work Phone: Start: 02-17-2025 Plain X-ray abdomen Dr. Tess Hernandez MD Work Phone: Start: 02-17-[address] Tess Hernandez MD Work Phone: Start: 02-17-[address] Tess Hernandez MD Work Phone: Start: 02-17-2025 Urnls dip stick/tablet reagent auto microscopy Dr. Tess Hernandez MD Work Phone: Start: 02-17-[address] Tess Hernandez MD Work Phone: Start: 02-15-2025 Measurement of occult blood in gastric fluid specimen Dr. Tess Hernandez MD Work Phone: Start: 02-15-[address] Tess farias MD Work Phone: Start: 02-15-2025 CT of abdomen with contrast Dr. Tess scott MD Work Phone: Start: 02-14-2025 Carbon dioxide measurement, partial pressure Dr. Tess Hernandez MD Work Phone: Start: 02-14-2025 Gases blood o2 saturation only direct esperanza Dr. Tess Hernandez MD Work Phone: Start: 02-14-2025 Measurement of partial pressure of oxygen in blood Dr. Tess Hernandez MD Work Phone: Start: 02-14-[address] Tess Hernandez MD Work Phone: Start: 02-14-2025 Plain chest X-ray Dr. Tess Hernandez MD Work Phone: Start: 02-14-2025 Plain X-ray of hip Dr. Tess Hernandez MD Work Phone: Start: 02-14-2025 Total replacement of hip Dr. Tess marin MD Work Phone: Start: 02-03-2025 Methicillin resistant Staphylococcus aureus screening test Dr. Tess Hernandez MD Work Phone: Start: 02-03-2025 MRI of lower extremity Dr. Tess Hernandez MD Work Phone: Start: 02-03-[address] Tess Hernandez MD Work Phone: Comment on above: Published reference interval for apparen tly healthysubjects between age 20 and 60 is 205 - 285 umol/L and in apoorly controlled diabetic population is 228 - 563 umol/Lwith a mean of 396 umol/L.Performed at: [address] [id number] Director: Oleg Scales PhD, Phone: [phone] Start: 01-24-2025 End: 01-30-2025 Ecg routine ecg w/least 12 lds w/i&r Kerwin Hugo PA-C Work Phone: Start: 01-19-2025 End: 01-19-2025 Most Recent Endo Report Kerwin [facility] Work Phone: Comment on above: no records Start: 01-13-2025 Plain x-ray of pelvis and lower extremity Dr. Tess Hernandez MD Work Phone: Start: 01-13-2025 X-ray of lumbar spine, two or three views Dr. Tess Hernandez MD Work Phone: Start: 03-10-2023 End: 03-10-2023 Hemoglobin A1c/Hemoglobin.total in Blood Jessica Coburn RN Comment on above: 6.1% Start: 03-10-2023 End: 03-10-2023 Lab findings surveillance Jessica lacey RN Comment on above: 82 in CMP Start: 03-10-2023 End: 03-10-2023 Lipid panel Jessica Coburn RN Comment on above: total chol-225, Trig-181, HDL-33, LDL-15 9 Start: 05-23-2022 End: 05-23-2022 Shaving skin lesion 1 trunk/arm/leg diam 0.5cm/< Kerwin Hugo PA-C Work Phone: Start: 01-12-2022 End: 01-12-2022 Prostate specific antigen measurement Jessica Coburn RN Comment on above: 3.7 Start: 01-09-2022 End: 01-09-2022 Hemoglobin A1c/Hemoglobin.total in Blood Jessica Coburn RN Comment on above: 6.7 Start: 01-09-2022 End: 01-09-2022 Lipid panel Jessica Coburn RN Start: 08-31-2020 End: 08-31-2020 Examination of retina Jessica marin RN Comment on above: [facility] Start: 08-31-2015 End: 08-31-2015 Total replacement of right hip joint Jessica Coburn RN Comment on above: [place] Start: 08-31-2003 End: 08-31-2003 Appendectomy Jessica Coburn RN Comment on above: [facility] Colonoscopy Declined Arely Coburn RN UA P:C Ratio Jessica ashby RN Comment on above: not up to date Plan of Treatment Date Care Activity Detail Author Start: 03-27-2025 Plain x-ray of pelvis and lower extremity HIP, UNI W/ Pelvis 2-3 Views [facility] Start: 03-27-2025 XR Pelvis and Hip Views [facility] Start: 03-08-2025 Patient encounter procedure Medical; Hospital F/U - [facility] rehab d/c 02/28, s/p hip surg [facility] Start: 08-Mar-2025 09:10-04:00 ESTEPHANIE Hugo Appointment Request [facility], [facility]. Start: 03-01-2025 Referral to service [facility] Start: 02-28-2025 Patient discharge [facility] Start: 02-28-2025 US.doppler Lower extremity vessels [facility] Start: 02-27-2025 [facility] Start: 02-27-2025 Bacteria identified in Urine by Culture Urine Culture [facility] Start: 02-27-2025 [facility] Start: 02-24-2025 [facility] Start: 02-23-2025 [facility] Start: 02-23-2025 Removal of urinary catheter [facility] Start: 02-21-2025 Verification routine [facility] Start: 02-17-2025 [facility] Start: 02-17-2025 Following clinical pathway protocol [facility] Start: 02-17-2025 Providing care according to standard [facility] Start: 02-17-2025 Recommendation to continue with treatment [facility] Start: 02-17-2025 Implementation of planned interventions [facility] Start: 02-17-2025 Urinary bladder training [facility] Start: 02-17-2025 Admission procedure [facility] Start: 02-17-2025 Measuring intake and output [facility] Start: 02-17-2025 Patient referral to dietitian [facility] Start: 02-17-2025 Referral to occupational therapist [facility] Start: 02-17-2025 Referral to service [facility] Start: 02-17-2025 Vital signs measurements [facility] Start: 02-17-2025 [facility] Start: 02-17-2025 End: 02-17-2025 [facility] Start: 02-17-2025 Bacteria identified in Urine by Culture Urine Culture [facility] Start: 02-17-2025 [facility] Start: 02-16-2025 Following clinical pathway protocol [facility] Start: 02-16-2025 Removal of urinary catheter [facility] Start: 02-16-2025 Patient discharge [facility] Start: 02-15-2025 Care planning and problem solving actions [facility] Start: 02-15-2025 End: 02-15-2025 [facility] Start: 02-15-2025 Speech therapy assessment [facility] Start: 02-15-2025 Provision of overbed trapeze [facility] Start: 02-15-2025 [facility] Start: 02-15-2025 [facility] Start: 02-15-2025 [facility] Start: 02-15-2025 Application of intermittent pneumatic compression device [facility] Start: 02-15-2025 [facility] Start: 02-15-2025 [facility] Start: 02-15-2025 [facility] Start: 02-15-2025 Referral to gastroenterology service [facility] Start: 02-15-2025 [facility] Start: 02-14-2025 [facility] Start: 02-14-2025 [facility] Start: 02-14-2025 [facility] Start: 02-14-2025 Following clinical pathway protocol [facility] Start: 02-14-2025 Assessment of risk of venous thromboembolism [facility] Start: 02-14-2025 End: 02-14-2025 Care regimes management [facility] Start: 02-14-2025 Elevation of head of bed [facility] Start: 02-14-2025 Insertion of catheter into peripheral vein [facility] Start: 02-14-2025 Measuring intake and output [facility] Start: 02-14-2025 End: 02-14-2025 Notification of physician [facility] Start: 02-14-2025 Oxygen therapy [facility] Start: 02-14-2025 Providing care according to standard [facility] Start: 02-14-2025 Referral to service [facility] Start: 02-14-2025 Vital signs measurements [facility] Start: 02-14-2025 End: 02-14-2025 [facility] Start: 02-14-2025 [facility] Start: 02-14-2025 Consultation [facility] Start: 02-14-2025 Continuous pulse oximetry [facility] Start: 02-14-2025 Admission procedure [facility] Start: 02-14-2025 Recommendation to continue with treatment [facility] Start: 02-14-2025 Ambulation therapy management [facility] Start: 02-14-2025 Application of device [facility] Start: 02-14-2025 Assessment of risk of venous thromboembolism [facility] Start: 02-14-2025 Catheterization of vein [facility] Start: 02-14-2025 Exercises [facility] Start: 02-14-2025 Following clinical pathway protocol [facility] Start: 02-14-2025 Introduction of urinary catheter [facility] Start: 02-14-2025 Measuring intake and output [facility] Start: 02-14-2025 Neurovascular assessment [facility] Start: 02-14-2025 Patient education [facility] Start: 02-14-2025 Procedure discontinued [facility] Start: 02-14-2025 Provision of activity privileges [facility] Start: 02-14-2025 Provision of overbed trapeze [facility] Start: 02-14-2025 Referral to occupational therapist [facility] Start: 02-14-2025 Referral to service [facility] Start: 02-14-2025 Vital signs measurements [facility] Start: 02-14-2025 Wound care [facility] Start: 02-14-2025 [facility] Start: 02-14-2025 Dual pressure spontaneous ventilation support [facility] Start: 01-24-2025 End: 01-24-2025 Ecg routine ecg w/least 12 lds w/i&r ELECTROCARDIOGRAM WITH INTERPRETATION (49254) Date: 24-Jan-2025 [facility], [facility]; [facility], [facility] Start: 01-24-2025 Admission to same day surgery center Medical; EXTENDED RTN - needs to see pcp for hip surgery(form front) [facility], [facility] Start: 24-Jan-2025 10:00-04:00 ESTEPHANIE Hugo Appointment Request [facility], [facility] Start: 01-13-2025 Plain x-ray of pelvis and lower extremity HIP, UNI W/ Pelvis 2-3 Views [facility] Start: 01-13-2025 X-ray of lumbar spine, two or three views Lumbar Spine 2 or 3 Views [facility] Start: 01-13-2025 XR Lumbar spine 2 or 3 Views [facility] Start: 01-13-2025 XR Pelvis and Hip Views [facility] Patient Education DVT Complicati ons Understanding Oxygen Therapy What Are Snoring and Sleep Apnea? Caring for Your Incision Benign Prostatic Hyperplasia ED Sleep Apnea, Obstructive [facility] Work Phone: Patient referral [facility] Work Phone: Urine culture [facility] Urine culture [facility].doppler Lower ext remity vessels [facility] Payers Date Payer Category Payer Unknown [id number] Self-pay 1945 Unknown [id number] 2.16.8 40.1.579897.3.579.2.419 Unknown [id number] 2.16.8 40.1.197551.3.579.2.462 Unknown [id number] 2.16.8 40.1.783220.3.579.2.462 Unknown [id number] 2.16.8 40.1.325472.3.579.2.462 Unknown [id number] 2.16.8 40.1.313617.3.579.2.462 Unknown [id number] 2.16.8 40.1.022469.3.579.2.462 Unknown [id number] 2.16.8 40.1.242597.3.579.2.462 Unknown [id number] 2.16.8 40.1.827802.3.579.2.462 Unknown [id number] 2.16.8 40.1.656004.3.579.2.462 Unknown [id number] 2.16.8 40.1.647833.3.579.2.462 Unknown [id number] 2.16.8 40.1.931672.3.579.2.462 Unknown [id number] 2.16.8 40.1.673449.3.579.2.462 Unknown [id number] 2.16.8 40.1.302582.3.579.2.462 Unknown [id number] 2.16.8 40.1.885139.3.579.2.462 Unknown [id number] 2.16.8 40.1.528168.3.579.2.462 Unknown [id number] 2.16.8 40.1.672217.3.579.2.462 Unknown [id number] 2.16.8 40.1.486779.3.579.2.462 Unknown [id number] 2.16.8 40.1.452752.3.579.2.462 Unknown [id number] 2.16.8 40.1.446706.3.579.2.462 Unknown [id number] 2.16.8 40.1.185009.3.579.2.462 Unknown [id number] 2.16.8 40.1.652289.3.579.2.462 Unknown [id number] 2.16.8 40.1.098569.3.579.2.462 Unknown [id number] 2.16.8 40.1.022919.3.579.2.462 Unknown [id number] 2.16.8 40.1.532280.3.579.2.462 Unknown [id number] 2.16.8 40.1.415696.3.579.2.462 Unknown [id number] 2.16.8 40.1.515961.3.579.2.462 Unknown [id number] 2.16.8 40.1.526443.3.579.2.462 Unknown [id number] 2.16.8 40.1.860543.3.579.2.462 Unknown [id number] 2.16.8 40.1.531400.3.579.2.462 Unknown [id number] 2.16.8 40.1.772514.3.579.2.462 Unknown [id number] 2.16.8 40.1.087726.3.579.2.462 Unknown [id number] 2.16.8 40.1.038817.3.579.2.462 Unknown [id number] 2.16.8 40.1.509086.3.579.2.462 Unknown [id number] 2.16.8 40.1.481405.3.579.2.462 Unknown [id number] 2.16.8 40.1.316501.3.579.2.462 Unknown [id number] 2.16.8 40.1.360829.3.579.2.462 Social History Date Type Detail Facility [facility] Tobacco Use: Tobacco Use: ; F ormer smoker. [facility]; [facility] Start: 1945 Male [facility] Start: 02-17-2025 End: 03-27-2025 Ex-smoker [facility] Start: 01-13-2025 Tobacco smoking stat [facility] Never smoked tobacco (finding) [facility] Start: 02-07-2025 Tobacco smoking stat [facility] Current some day smoker [facility] Medical Equipment Procedure Code Equipment Code Equipment Origin al Text Equipment Identifier Dates Arthroplasty, hip, total, using robot-assisted navigation ([id number]) Ceramic femoral head prosthesis ()[id number] FDA Start: 02-14-2025 Arthroplasty, hip, total, using robot-assisted navigation ([id number]) Coated hip femur prosthesis, modular ()[id number] FDA Start: 02-14-2025 Arthroplasty, hip, total, using robot-assisted navigation ([id number]) Non-constrained polyethylene acetabular liner ()[id number] FDA Start: 02-14-2025 Arthroplasty, hip, total, using robot-assisted navigation ([id number]) Acetabular shell ()[id number] FDA Start: 02-14-2025 Arthroplasty, hip, total, using robot-assisted navigation ([id number]) Orthopaedic bone screw, non-bioabsorbable, sterile ()[id number] FDA Start: 02-14-2025 Goals Date Patient Goal Desired Activity /State Functional Status Date Assessment Result Facility 02-28-2025 Functional status Chair [facility] Work Phone: 02-25-2025 Functional status Rolling Walker [facility] Work Phone: 02-17-2025 Functional status Ambulates;Chair mode [facility] Work Phone: Mental Status Date Assessment Result Facility 02-28-2025 Cognitive function Voice/Name [facility] Work Phone: 02-17-2025 Cognitive function Voice/Name [facility] Work Phone: Clinical Notes 01-13-2025 to 04-18-2025 Note Date & Type Note Facility 04-18-2025 History and physi toño note Note Date/Time April 18, 2025 5:09pm [facility] [address] [place] [address] H&P Exam - Wound Care 04/13/25 1428 MR#: [id number] Acct: [id number] Name: JEREMIAH VILLA Rep #:[id number] : 1945 79 From: [place] [facility] PCP: PRISCILLA Almanzar Status:REG R CR Location: History of Present Illness Date of Service: 04/13/25 History of Wound: Mr. Jeremiah Villa is a 79 y/o male who initially presented to the wound center a few weeks ago for ongoing evaluation and management of a R valentine venous stasis ulcer for which he was seen here by Dr. Reece. He had a left hip replacement on 02/14/25 following which he unfortunately developed LLE gastroc DVT and RLE GSV SVT (initial doppler 02/28/25) he was admitted to the [facility] rehab unit at the time and he was prescribed Eliquis which he reports he has been taking as prescribed since. He'd had this R valentine venous ulcer prior to surgery, but it did worsen following surgery/DVT. His medical history is otherwise significant for DM last A1c 6.2. At last visit here, Dr. Reece had ordered vascular testing and referred patient for ongoing follow-up with me to address both his vascular disease and wounds. His arterial study 04/13/25 demonstrated R DAISY 1.13 with multiphasic waveforms and L DAISY 1.09 with multiphasic waveforms. Recent venous doppler 03/21/25 showedpartial resolution of the LLE gastroc DVT and R GSV SVT. He reports his wound is healed this week. He has no particular concerns. 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 Trochanteric bursitis, left hip Tobacco dependence in remission Hiatal hernia with GERD Left lumbar radiculitis Chronic renal failure (CRF), stage 3b Lumbar spondylosis Wears glasses Wears partial dentures Alcohol use Rash Walker as ambulation aid Arthritis High cholesterol Back pain Syncope Dietary restriction Constipation Chewing tobacco use History of pain when walking Hypertension Pulmonary embolism Home Medications ?Medication ?Instructions ?Recorded ?Last Taken ?Type cholecalciferol (vitamin D3) 25 25 mcg PO DAILY SUPPLE MENT 02/07/25 02/17/25 History mcg (1,000 unit) tablet (Vitamin D3) magnesium 250 mg tablet 750 mg PO DAILY SUPPLEMENT 0 02/07/25 02/13/25 History lisinopril 5 mg tablet 5 mg PO DAILY #30 tabs 02/27 Unknown Rx apixaban 2.5 mg tablet (Eliquis) 2.5 mg PO BID #60 tab s 02/28/25 Unknown Rx apixaban 5 mg tablet (Eliquis) 5 mg PO BID #120 tabs 0 03/27/25 Unknown Rx cephalexin 500 mg capsule 500 mg PO TID #42 caps 03/27 Unknown Rx glipizide 5 mg tablet 5 mg PO BID 03/27/25 Unknown History Allergy/AdvReac Type Severity Reaction Status Date / Time No Known Allergies Allergy Verified 03/27/25 09:56 Family History Son VTE (venous thromboembolism) many family members have had blood clots......possible inherited hypercoagulable disorder. Surgical History Status post left hip replacement Hx of right cataract extraction Hx of left cataract extraction Hx of appendectomy History of right hip replacement Social History household members: none housing: house number of children: 7 current occupational status: retired Smoking Status: Former smoker Tobacco: How many years used: 35 Smokeless tobacco user: snuff how long ago did patient quit smokin years ago alcohol intake: current alcohol intake frequency: holidays/special occasions only details: has an occasional beer in the summer and a shot of whiskey in the winter. substance use type: does not use Vital Signs Vital Signs Vital Signs: 04/13/25 13:09 Temperature 97.9 F Temperature Source Temporal Pulse Rate 92 Respiratory Rate 18 Blood Pressure 150/77 H Blood Pressure Mean 101 Blood Pressure Source Monitor Blood Pressure Position Sitting Blood Pressure Location Right Arm Oxygen Delivery Method Room Air Physical Exam Const alert, oriented x3 and no apparent distress General Appearance: cooperative and comfortable HEENT normocephalic, head/scalp atraumatic, hearing grossly normal bilaterally, external ears normal and external nose normal Eyes General Eye: normal appearance of both eyes Neck General: normal visual inspection and trachea midline Resp Effort and Inspection: able to speak in complete sentences; Negative for labored, grunting or stridor Cardio regular rate and regular rhythm Peripheral Pulses: posterior tibial pulses present and dorsalis pedis pulses present Extremity Extremity Narrative: 1+ BLE edema Skin Wound Narrative: R anterior valentine ulceration is fully epithelialized. Neuro oriented x3 and moves all extremities Psych mental status grossly normal Appearance: grossly normal Attitude: calm and engaged Activity / Motor Behavior: appropriate eye contact Speech: normal speech Debridement Note Debridement Note No debridement was completed: No debridement was completed today Post-Debridement Measurements and Additional Note: Post-Debridement Measurements/Treatment - Nurse 1 - General Ulcer Assessment Start: 04/13/25 13:09 Freq: Status: Active Protocol: JEANNIE Activity Type Activity Date Activity User E-sign Co-sign Detail Recorded Client Recorded Date Recorded By Document 04/13/25 13:09 DE [id number] 04/13/25 13:12 DE 04/13/25 13:09 - Today's Visit Information Type of service Follow-up Visit (Physician/[employer]INTE[employer]CE SUPERVISOR ) Arrival Mode Ambulatory, Walker Transfer Assistance None Accompanied by family Patient Identification Verified (Name & Yes ) Patient Requires Transmission-Based No Precautions Safety Precautions Fall Prevention Vital Signs Temperature (97.8 F-99.1 F) 97.9 F Temperature Source Temporal Pulse Rate (60-100) 92 Pulse Location Monitor Respiratory Rate (12-18) 18 Respiratory rate source Observation Oxygen Delivery Method Room Air Blood Pressure (90/60-120/80) 150/77 H Blood Pressure Mean (mm Hg) 101 Source Monitor Position Sitting Blood Pressure Location Right Arm History Since Last Visit- (Skip if this is Patient's initial visit) Have you changed medications since your No last visit? Any new allergies or adverse reactions No Had a fall/change in ADL's that may No increase risk of falls Signs or symptoms of abuse and/or No neglect since last visit Have you been in the hospital since your No last visit? Has dressing in place as prescribed No Has compression in place as prescribed N/A Has offloadiing in place as prescribed N/A Experienced any changes in pain level or No management Left Footwear Slipper Right Footwear Slipper Pain Scale: 0-10 Numeric Is Patient Pain Free? No WC - Nurse 1 - General Ulcer Measurement Start: 04/13/25 13:09 Freq: Status: Active Protocol: Activity Type Activity Date Activity User E-sign Co-sign Detail Recorded Client Recorded Date Recorded By Document 04/13/25 13:09 DE [id number] 04/13/25 13:12 DE 04/13/25 13:09 Wound Center Nurse 1 #1 RLE Ant -Current Size (cm) - Length 0.1 -Current Size (cm) - Width 0.1 -Current Size (cm) - Depth 0.1 -Total Square Cm 0.01 -Date of Last Picture (Recall this 04/13/25 field) -Photo Taken Yes -Tunneling No -Undermining/Tunneling No -Circular Undermining No -Texture (Dilma-wound Skin Appearance) Assessed -Moisture (Dilma-wound Skin Appearance) Assessed -Color (Dilma-wound Skin Appearance) Assessed -Temperature (Dilma-wound Skin No Abnormality Appearance) (Pt Warm) -Tenderness on Palpation (Dilma-wound No Skin Appearance) -Ulcer Cleansing Soap and Water -Foul Odor after Cleansing No Lower Limb Edema Present Yes Right Calf (cm) 38.0 Right Ankle (cm) 24.5 Left Calf (cm) 39.0 Left Ankle (cm) 26.5 WC - Nurse 2 - General Ulcer CM Notes Start: 04/13/25 13:09 Freq: Status: Active Protocol: Activity Type Activity Date Activity User E-sign Co-sign Detail Recorded Client Recorded Date Recorded By Document 04/13/25 13:32 GM [id number] 04/13/25 13:33 GM 04/13/25 13:32 Wound Center Nurse 2 #1 RLE Ant -Time 13:32 -Correct Patient Yes -Correct Side, Site, Position Yes -Correct Procedure No -Procedure Performed No -Tunneling No -Undermining/Tunneling No -Circular Undermining No -Wound/Ulcer Outcome Healed- Epithelialized -Ulcer Cleansing Not Cleansed -Foul Odor after Cleansing No -Bioengineered Tissue No -Bleeding Controlled with NA -Offloading No Pain Scale: 0-10 Numeric Is Patient Pain Free? Yes WC - Nurse 3 - General Ulcer D/C NN Start: 04/13/25 13:09 Freq: Status: Active Protocol: Activity Type Activity Date Activity User E-sign Co-sign Detail Recorded Client Recorded Date Recorded By Document 04/13/25 13:51 ML [id number] 04/13/25 13:52 ML 04/13/25 13:51 Wound Care Center Nurse 3 BLE -Tubular Bandage Double Layer -Size of Tubigrip Used Size E -Size E ($) 2 Pain Scale: 0-10 Numeric Is Patient Pain Free? Yes Charges/Coding Visit Charges Office Visits / Consults: 08186 OV L3 New 30min Assessment/Plan Assessment/Plan (1) Ulcer of right leg: CODE(S): L97.919 - Non-pressure chronic ulcer of unspecified part of rightlower leg with unspecified severity QUALIFIERS: Non-pressure ulcer stage: limited to breakdown of skin Qualified Code(s): L97.911 - Non-pressure chronic ulcer of unspecified part of right lower leg limited to breakdown of skin (2) Superficial vein thrombosis: CODE(S): I82.890 - Acute embolism and thrombosis of other specified veins (3) DVT of lower limb, acute: CODE(S): I82.409 - Acute embolism and thrombosis of unspecified deep veinsof unspecified lower extremity QUALIFIERS: Affected thrombotic vein of extremity: calf muscle vein Laterality: left Qualified Code(s): I82.462 - Acute embolism and thrombosis of left calf muscular vein (4) Bilateral lower extremity edema: CODE(S): R60.0 - Localized edema (5) Chronic venous insufficiency: CODE(S): I87.2 - Venous insufficiency (chronic) (peripheral) PLAN: Plan His wound is healed today. I discussed with him the findings of his arterial study; no significant PAD. We discussed the findings of his most recent duplex showing resolving DVT. As he had provoked, infrapopliteal DVT it would be reasonable to complete 3 months of anticoagulation with Eliquis. I asked who was prescribing this for him, he thinks his PCP is. He reports he has upcoming appt with his PCP. I offered follow-up in the vascular office to ensure continuity of care with therapy but he declined. I do advise that he wear measured compression (20-30 mmHg) stockings daily in addition to leg elevation at all times of rest, and avoidance of prolonged idle sitting/standing where possible. He is advised to follow-up here or with me in the office with any recurrent symptoms or new concerns. He is discharged from the wound healing center and will return as needed. 04/18/25 170 <Electronically signed by [place] [facility]> Cosigner Signature (if applicable): CC: ~ Signed [facility] Work Phone: 1(424) 229-573008-19-2025 History and physical note [facility] [address] [place] [address] H&P Exam - Wound Care 04/13/25 1428 MR#: [id number] Acct: [id number] Name: JEREMIAH VILLA Rep #:[id number] : 1945 79 From: [place] [facility] PCP: PRISCILLA Almanzar Status:REG R CR Location: History of Present Illness Date of Service: 04/13/25 History of Wound: Mr. Jeremiah Villa is a 79 y/o male who initially presented to the wound center a few weeks ago for ongoing evaluation and management of a R valentine venous stasis ulcer for which he was seen here by Dr. Reece. He had a left hip replacement on 02/14/25 following which he unfortunately developed LLE gastroc DVT and RLE GSV SVT (initial doppler 02/28/25) he was admitted to the [facility] rehab unit at the time and he was prescribed Eliquis which he reports he has been taking as prescribed since. He'd had this R shinvenous ulcer prior to surgery, but it did worsen following surgery/DVT. His medical history is otherwise significant for DM last A1c 6.2. At last visit here, Dr. Reece had ordered vascular testing and referred patient for ongoing follow-up with me to address both his vascular disease and wounds. His arterial study 04/13/25 demonstrated R DAISY 1.13 with multiphasic waveforms and L DAISY 1.09 with multiphasic waveforms. Recent venous doppler 03/21/25 showedpartial resolution of the LLE gastroc DVT and R GSV SVT. He reports his wound is healed this week. He has no particular concerns. 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 Trochanteric bursitis, left hip Tobacco dependence in remission Hiatal hernia with GERD Left lumbar radiculitis Chronic renal failure (CRF), stage 3b Lumbar spondylosis Wears glasses Wears partial dentures Alcohol use Rash Walker as ambulation aid Arthritis High cholesterol Back pain Syncope Dietary restriction Constipation Chewing tobacco use History of pain when walking Hypertension Pulmonary embolism Home Medications ?Medication ?Instructions ?Recorded ?Last Taken ?Type cholecalciferol (vitamin D3) 25 25 mcg PO DAILY SUPPLE MENT 02/07/25 02/17/25 History mcg (1,000 unit) tablet (Vitamin D3) magnesium 250 mg tablet 750 mg PO DAILY SUPPLEMENT 0 02/07/25 02/13/25 History lisinopril 5 mg tablet 5 mg PO DAILY #30 tabs 02/27 Unknown Rx apixaban 2.5 mg tablet (Eliquis) 2.5 mg PO BID #60 tab s 02/28/25 Unknown Rx apixaban 5 mg tablet (Eliquis) 5 mg PO BID #120 tabs 0 03/27/25 Unknown Rx cephalexin 500 mg capsule 500 mg PO TID #42 caps 03/27 Unknown Rx glipizide 5 mg tablet 5 mg PO BID 03/27/25 Unknown History Allergy/AdvReac Type Severity Reaction Status Date / Time No Known Allergies Allergy Verified 03/27/25 09:56 Family History Son VTE (venous thromboembolism) many family members have had blood clots......possible inherited hypercoagulable disorder. Surgical History Status post left hip replacement Hx of right cataract extraction Hx of left cataract extraction Hx of appendectomy History of right hip replacement Social History household members: none housing: house number of children: 7 current occupational status: retired Smoking Status: Former smoker Tobacco: How many years used: 35 Smokeless tobacco user: snuff how long ago did patient quit smokin years ago alcohol intake: current alcohol intake frequency: holidays/special occasions only details: has an occasional beer in the summer and a shot of whiskey in the winter. substance use type: does not use Vital Signs Vital Signs Vital Signs: 04/13/25 13:09 Temperature 97.9 F Temperature Source Temporal Pulse Rate 92 Respiratory Rate 18 Blood Pressure 150/77 H Blood Pressure Mean 101 Blood Pressure Source Monitor Blood Pressure Position Sitting Blood Pressure Location Right Arm Oxygen Delivery Method Room Air Physical Exam Const alert, oriented x3 and no apparent distress General Appearance: cooperative and comfortable HEENT normocephalic, head/scalp atraumatic, hearing grossly normal bilaterally, external ears normal and external nose normal Eyes General Eye: normal appearance of both eyes Neck General: normal visual inspection and trachea midline Resp Effort and Inspection: able to speak in complete sentences; Negative for labored, grunting or stridor Cardio regular rate and regular rhythm Peripheral Pulses: posterior tibial pulses present and dorsalis pedis pulses present Extremity Extremity Narrative: 1+ BLE edema Skin Wound Narrative: R anterior valentine ulceration is fully epithelialized. Neuro oriented x3 and moves all extremities Psych mental status grossly normal Appearance: grossly normal Attitude: calm and engaged Activity / Motor Behavior: appropriate eye contact Speech: normal speech Debridement Note Debridement Note No debridement was completed: No debridement was completed today Post-Debridement Measurements and Additional Note: Post-Debridement Measurements/Treatment - Nurse 1 - General Ulcer Assessment Start: 04/13/25 13:09 Freq: Status: Active Protocol: JEANNIE Activity Type Activity Date Activity User E-sign Co-sign Detail Recorded Client Recorded Date Recorded By Document 04/13/25 13:09 DE [id number] 04/13/25 13:12 DE 04/13/25 13:09 - Today's Visit Information Type of service Follow-up Visit (Physician/[employer]PERVISOR ) Arrival Mode Ambulatory, Walker Transfer Assistance None Accompanied by family Patient Identification Verified (Name & Yes ) Patient Requires Transmission-Based No Precautions Safety Precautions Fall Prevention Vital Signs Temperature (97.8 F-99.1 F) 97.9 F Temperature Source Temporal Pulse Rate (60-100) 92 Pulse Location Monitor Respiratory Rate (12-18) 18 Respiratory rate source Observation Oxygen Delivery Method Room Air Blood Pressure (90/60-120/80) 150/77 H Blood Pressure Mean (mm Hg) 101 Source Monitor Position Sitting Blood Pressure Location Right Arm History Since Last Visit- (Skip if this is Patient's initial visit) Have you changed medications since your No last visit? Any new allergies or adverse reactions No Had a fall/change in ADL's that may No increase risk of falls Signs or symptoms of abuse and/or No neglect since last visit Have you been in the hospital since your No last visit? Has dressing in place as prescribed No Has compression in place as prescribed N/A Has offloadiing in place as prescribed N/A Experienced any changes in pain level or No management Left Footwear Slipper Right Footwear Slipper Pain Scale: 0-10 Numeric Is Patient Pain Free? No WC - Nurse 1 - General Ulcer Measurement Start: 04/13/25 13:09 Freq: Status: Active Protocol: Activity Type Activity Date Activity User E-sign Co-sign Detail Recorded Client Recorded Date Recorded By Document 04/13/25 13:09 DE [id number] 04/13/25 13:12 DE 04/13/25 13:09 Wound Center Nurse 1 #1 RLE Ant -Current Size (cm) - Length 0.1 -Current Size (cm) - Width 0.1 -Current Size (cm) - Depth 0.1 -Total Square Cm 0.01 -Date of Last Picture (Recall this 04/13/25 field) -Photo Taken Yes -Tunneling No -Undermining/Tunneling No -Circular Undermining No -Texture (Dilma-wound Skin Appearance) Assessed -Moisture (Dilma-wound Skin Appearance) Assessed -Color (Dilma-wound Skin Appearance) Assessed -Temperature (Dilma-wound Skin No Abnormality Appearance) (Pt Warm) -Tenderness on Palpation (Dilma-wound No Skin Appearance) -Ulcer Cleansing Soap and Water -Foul Odor after Cleansing No Lower Limb Edema Present Yes Right Calf (cm) 38.0 Right Ankle (cm) 24.5 Left Calf (cm) 39.0 Left Ankle (cm) 26.5 WC - Nurse 2 - General Ulcer CM Notes Start: 04/13/25 13:09 Freq: Status: Active Protocol: Activity Type Activity Date Activity User E-sign Co-sign Detail Recorded Client Recorded Date Recorded By Document 04/13/25 13:32 GM [id number] 04/13/25 13:33 GM 04/13/25 13:32 Wound Center Nurse 2 #1 RLE Ant -Time 13:32 -Correct Patient Yes -Correct Side, Site, Position Yes -Correct Procedure No -Procedure Performed No -Tunneling No -Undermining/Tunneling No -Circular Undermining No -Wound/Ulcer Outcome Healed- Epithelialized -Ulcer Cleansing Not Cleansed -Foul Odor after Cleansing No -Bioengineered Tissue No -Bleeding Controlled with NA -Offloading No Pain Scale: 0-10 Numeric Is Patient Pain Free? Yes WC - Nurse 3 - General Ulcer D/C NN Start: 04/13/25 13:09 Freq: Status: Active Protocol: Activity Type Activity Date Activity User E-sign Co-sign Detail Recorded Client Recorded Date Recorded By Document 04/13/25 13:51 ML [id number] 04/13/25 13:52 ML 04/13/25 13:51 Wound Care Center Nurse 3 BLE -Tubular Bandage Double Layer -Size of Tubigrip Used Size E -Size E ($) 2 Pain Scale: 0-10 Numeric Is Patient Pain Free? Yes Charges/Coding Visit Charges Office Visits / Consults: [id number] OV L3 New 30min Assessment/Plan Assessment/Plan (1) Ulcer of right leg: CODE(S): L97.919 - Non-pressure chronic ulcer of unspecified part of rightlower leg with unspecified severity QUALIFIERS: Non-pressure ulcer stage: limited to breakdown of skin Qualified Code(s): L97.911 - Non-pressure chronic ulcer of unspecified part of right lower leg limited to breakdown of skin (2) Superficial vein thrombosis: CODE(S): I82.890 - Acute embolism and thrombosis of other specified veins (3) DVT of lower limb, acute: CODE(S): I82.409 - Acute embolism and thrombosis of unspecified deep veinsof unspecified lower extremity QUALIFIERS: Affected thrombotic vein of extremity: calf muscle vein Laterality: left Qualified Code(s): I82.462 - Acute embolism and thrombosis of left calf muscular vein (4) Bilateral lower extremity edema: CODE(S): R60.0 - Localized edema (5) Chronic venous insufficiency: CODE(S): I87.2 - Venous insufficiency (chronic) (peripheral) PLAN: Plan His wound is healed today. I discussed with him the findings of his arterial study; no significant PAD. We discussed the findings of his most recent duplex showing resolving DVT. As he had provoked, infrapopliteal DVT it wouldbe reasonable to complete 3 months of anticoagulation with Eliquis. I asked who was prescribing this for him, he thinks his PCP is. He reports he has upcoming appt with his PCP. I offered follow-up in the vascular office to ensure continuity of care with therapy but he declined. I do advise that hewear measured compression (20-30 mmHg) stockings daily in addition to leg elevation at all times ofrest, and avoidance of prolonged idle sitting/standing where possible. He is advised to follow-up here or with me in the office with any recurrent symptoms or new concerns. He is discharged from the wound healing center and will return as needed. 04/18/25 1709 Cosigner Signature (if applicable): CC: ~ Signed [facility]07-28-2025 History and physical note Author Jasper Reece [facility] Note Date/Time March 27, 2025 3:49 pm [facility] [address] [place] [address] H&P Exam - Wound Care 03/27/25 1542 MR#: [id number] Acct: [id number] Name: JEREMIAH VILLA Rep #:[id number] : 1945 79 From: Jasper Reece MD PCP: PRISCILLA Almanzar Status:REG R CR Location: History of Present Illness Date of Service: 03/27/25 History of Wound: The patient is a 79-year-old male presenting with concerns related to venous stasis ulcer and deep vein thrombosis management. Following a left hip replacement on February 14, 2025, the patient developed blood clots in both legs, confirmed by ultrasound. He was under the care of [facility] rehabilitation unit where he was prescribed Eliquis and has been taking his Eliquis ever since. The right anterior valentine venous stasis ulcer, present before surgery, has worsened postoperatively. The patient has diabetes mellitus with an A1c of 6.2, indicating prediabetes, and reports some neuropathy, which is managed through dietary control. Patient has never seen a vascular surgeon. Patient is extremely happy with his new left hip, and reports doing quite well and feeling well. ROS: - Cardiovascular: Denies chest pain, orthopnea, or syncope. - Respiratory: Denies dyspnea or cough. - Neurological: Reports mild neuropathy in feet. Denies headaches or dizziness. Attestation: Documentation on this patient encounter was supported using ambient scribe technology/ voice AI technology. The patient consented to recording for the purpose of documenting the encounter. Provider reviewed content of the generatednote prior to signature. 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 Trochanteric bursitis, left hip Tobacco dependence in remission Hiatal hernia with GERD Left lumbar radiculitis Chronic renal failure (CRF), stage 3b Lumbar spondylosis Wears glasses Wears partial dentures Alcohol use Rash Walker as ambulation aid Arthritis High cholesterol Back pain Syncope Dietary restriction Constipation Chewing tobacco use History of pain when walking Hypertension Pulmonary embolism Home Medications ?Medication ?Instructions ?Recorded ?Last Taken ?Type cholecalciferol (vitamin D3) 25 25 mcg PO DAILY SUPPLE MENT 02/07/25 02/17/25 History mcg (1,000 unit) tablet (Vitamin D3) magnesium 250 mg tablet 750 mg PO DAILY SUPPLEMENT 0 02/07/25 02/13/25 History lisinopril 5 mg tablet 5 mg PO DAILY #30 tabs 02/27 Unknown Rx apixaban 2.5 mg tablet (Eliquis) 2.5 mg PO BID #60 tab s 02/28/25 Unknown Rx apixaban 5 mg tablet (Eliquis) 5 mg PO BID #120 tabs 0 03/27/25 Unknown Rx cephalexin 500 mg capsule 500 mg PO TID #42 caps 03/27 Unknown Rx glipizide 5 mg tablet 5 mg PO BID 03/27/25 Unknown History Allergy/AdvReac Type Severity Reaction Status Date / Time No Known Allergies Allergy Verified 03/27/25 09:56 Family History Son VTE (venous thromboembolism) many family members have had blood clots......possible inherited hypercoagulable disorder. Surgical History Status post left hip replacement Hx of right cataract extraction Hx of left cataract extraction Hx of appendectomy History of right hip replacement Social History household members: none housing: house number of children: 7 current occupational status: retired Smoking Status: Former smoker Tobacco: How many years used: 35 Smokeless tobacco user: snuff how long ago did patient quit smokin years ago alcohol intake: current alcohol intake frequency: holidays/special occasions only details: has an occasional beer in the summer and a shot of whiskey in the winter. substance use type: does not use Vital Signs Vital Signs Vital Signs: 03/27/25 14:34 Temperature 97.1 F L Temperature Source Temporal Pulse Rate 92 Respiratory Rate 18 Blood Pressure 151/68 H Blood Pressure Mean 95 Blood Pressure Source Monitor Weight Weight: 255 lb 2.86 oz Body Mass Index (BMI) 35.6 Physical Exam Narrative Right lower extremity: Inspection : presence of venous stasis ulcer, multiple small patches in the anterior valentine with largest measuring 1 x 1 cm. There is granulation tissue at the base. Minimal fibrinous exudates/biofilm. Very healthy appearing and appear to be healing. Palpation: 2+ pitting edema Motor: 5+ plantarflexion and dorsiflexion. No pain with passive dorsiflexion Sensation: Reports diminished sensation to light touch vascular: Doppler ultrasound used to assess blood flow, biphasic signal. Foot is warm. No palpable pulses on my exam. Debridement Note Debridement Note No debridement was completed: No debridement was completed today Post-Debridement Measurements and Additional Note: Post-Debridement Measurements/Treatment WC - Nurse 1 - General Ulcer Assessment Start: 03/27/25 14:34 Freq: Status: Active Protocol: LINDSEY.LOWEXT Activity Type Activity Date Activity User E-sign Co-sign Detail Recorded Client Recorded Date Recorded By Document 03/27/25 14:34 DL [id number] 03/27/25 14:49 DL 03/27/25 14:34 WC - Today's Visit Information Type of service Initial Visit Arrival Mode Ambulatory Transfer Assistance None Patient Identification Verified (Name & Yes ) Patient Requires Transmission-Based No Precautions Height and Weight Height 5 ft 11 in Weight 255 lb 2.86 oz Weight in Pounds 255.2 lbs Body Mass Index (BMI) 35.6 BMI Classification Obese Vital Signs Temperature (97.8 F-99.1 F) 97.1 F L Temperature Source Temporal Pulse Rate (60-100) 92 Pulse Location Monitor Respiratory Rate (12-18) 18 Respiratory rate source Observation Blood Pressure (90/60-120/80) 151/68 H Blood Pressure Mean 95 Source Monitor Pain Scale: 0-10 Numeric Is Patient Pain Free? Yes Lower Extremity Assessment/ Foot Assessment/ Toe Nail Assessment Left -Posterior Tibial Palpable No -Posterior Tibial Doppler Multiphasic -Dorsalis Pedis Palpable No -Dorsalis Pedis Doppler Multiphasic -Extremity Color Normal -Hair Growth on Legs No -Hair Growth on Toes No -Temperature of Extremity Warm -Capillary Refill Less than 3 Seconds -Dependent Rubor No -Blanched when Elevated No -Other Deformity No -Prior Foot Ulcer No -Charcot Joint No -Prior Amputation No -Thick No -Discolored No -Deformed No -Improper Length & Hygeine No Right -Posterior Tibial Palpable No -Posterior Tibial Doppler Multiphasic -Dorsalis Pedis Palpable No -Dorsalis Pedis Doppler Multiphasic -Extremity Color Normal -Hair Growth on Legs No -Hair Growth on Toes No -Temperature of Extremity Warm -Capillary Refill Less than 3 Seconds -Dependent Rubor No -Blanched when Elevated No -Lipodermatosclerosis No -Other Deformity No -Prior Foot Ulcer No -Charcot Joint No -Prior Amputation No -Thick No -Discolored No -Deformed No -Improper Length & Hygeine No Teaching Assessment Preferences Verbal Readiness To Learn Good Willingness to Engage in Self Management Med Activies Readiness to Engage in Self Management Med Activities Anxiety Level Calm Cooperation Cooperative Perception Coherent Interest in Health Problem Asks Questions Education Importance Acknowledges Need Does Patient Smoke tobacco or other No substances Smoking Status Former smoker Is Patient Diabetic Yes Functional Assessment Recent Decline in Ability to Perform Denies Any Declines Culture/Rastafari/Calibrator Barometers Cultural/Rastafari Needs that may affect No Treatment Plan Would you allow our hospital solutions analyst to No meet you for the purpose of spiritual/ emotional support? Calibrator Barometers to contact place of congregation No WC - Nurse 1 - General Ulcer Measurement Start: 03/27/25 14:34 Freq: Status: Active Protocol: Activity Type Activity Date Activity User E-sign Co-sign Detail Recorded Client Recorded Date Recorded By Document 03/27/25 14:34 [email or web address] [email or web address] 03/27/25 14:49 RAFAEL 03/27/25 14:34 Wound Center Nurse 1 #1 RLE Ant -Current Size (cm) - Length 13.5 -Current Size (cm) - Width 4.3 -Current Size (cm) - Depth 0.1 -Total Square Cm 58.05 -Photo Taken Yes -Exudate Amt Large -Exudate Type Serosanguineous -Wound Margin Distinct, Outline Attached -Granulation Amt Medium (34-66%) -Granulation Quality [place] -Necrosis Amt Medium (34-66%) -Necrotic Tissue Type Adherent Slough -Structure Exposed N/A -Texture (Dilma-wound Skin Appearance) Localized Edema ,Scarring -Moisture (Dilma-wound Skin Appearance) No Abnormality -Color (Dilma-wound Skin Appearance) No Abnormality -Temperature (Dilma-wound Skin No Abnormality Appearance) (Pt Warm) -Tenderness on Palpation (Dilma-wound No Skin Appearance) -Ulcer Cleansing Soap and Water -Foul Odor after Cleansing No -Anesthetic Used 4% Lidocaine Solution Right Calf (cm) 41.5 Right Ankle (cm) 25.6 Left Calf (cm) 43 Left Ankle (cm) 25.5 WC - Nurse 2 - General Ulcer CM Notes Start: 03/27/25 14:34 Freq: Status: Active Protocol: Activity Type Activity Date Activity User E-sign Co-sign Detail Recorded Client Recorded Date Recorded By Document 03/27/25 15:21 [email or web address] [id number] 03/27/25 15:31 BIPIN 03/27/25 15:21 Wound Center Nurse 2 #1 RLE Ant -Time 15:22 -Correct Patient Yes -Correct Side, Site, Position No -Correct Procedure No -Procedure Performed No -Post Debridement (cm) - Length 14 -Post Debridement (cm) - Width 5 -Post Debridement (cm) - Depth 0.1 -Total Square (Post) (cm) 70 -Area of Debridement (cm) - Length 14 -Area of Debridement (cm) - Width 5 -Total Square (Area) (cm) 70 -Tunneling No -Undermining/Tunneling No -Circular Undermining No -Wound/Ulcer Outcome Not Healed -Ulcer Cleansing Rinsed/ Irrigated with Saline -Bleeding Controlled with Pressure -Treatment Response Procedure Tolerated Well -Offloading No -Debridement - Subq, 1st 20sq cm No Pain Scale: 0-10 Numeric Is Patient Pain Free? Yes Charges/Coding Visit Charges Office Visits / Consults: 25839 OV L3 New 30min Assessment/Plan Assessment/Plan (1) Ulcer of right leg: CODE(S): L97.919 - Non-pressure chronic ulcer of unspecified part of rightlower leg with unspecified severity QUALIFIERS: Non-pressure ulcer stage: limited to breakdown of skin Qualified Code(s): L97.911 - Non-pressure chronic ulcer of unspecified part of right lower leg limited to breakdown of skin PLAN: Assessment and Plan The patient is a 79-year-old male with a history of venous stasis ulcer and deepvein thrombosis, presenting for management of the venous stasis ulcer. Followinghip replacement surgery, the patient developed bilateral deep vein thrombosis, confirmed by ultrasound, with no significant change noted in follow-up imaging. The venous stasis ulcer, which worsened postoperatively, should be managed with hydrogel and Adaptic dressings, with plans to assess blood flow using ankle- brachial indices before considering compression therapy. Once adequate inflow is confirmed, I would recommend compression. My plan is to refer him to vascular surgery/wound care ([facility] and Dr. Hammond) who can manage both the ulcer as well as the vascular component of his disease. I have ordered ABIs. Patient happy with the plan Patient will continue to follow with his PCP for his Eliquis/DVT treatment, and vascular surgery can assist as well as needed. 03/27/251548 <Electronically signed by Jasper Reece MD> Cosigner Signature (if applicable): CC: ~ Signed [facility] Work Phone: [phone]) 173-725107-28-2025 History and physical note [facility] [address] [address] H&P Exam - Wound Care 03/27/25 1542 MR#: [id number] Acct: [id number] Name: JEREMIAH VILLA Rep #:[id number] : 1945 79 From: Jasper Reece MD PCP: PRISCILLA Almanzar Status:REG R CR Location: History of Present Illness Date of Service: 03/27/25 History of Wound: The patient is a 79-year-old male presenting with concerns related to venous stasis ulcer and deep vein thrombosis management. Following a left hip replacement on February 14, 2025, the patient developed blood clots in both legs, confirmed by ultrasound. He was under the care of [facility] rehabilitation unit where he was prescribed Eliquis and has been taking his Eliquis ever since. The right anterior valentine venous stasis ulcer, present before surgery, has worsened postoperatively. The patient has diabetes mellitus with an A1c of 6.2, indicating prediabetes, and reports some neuropathy, which is managed through dietary control. Patient has never seen a vascular surgeon. Patient is extremely happy with his new left hip, and reports doing quite well and feeling well. ROS: - Cardiovascular: Denies chest pain, orthopnea, or syncope. - Respiratory: Denies dyspnea or cough. - Neurological: Reports mild neuropathy in feet. Denies headaches or dizziness. Attestation: Documentation on this patient encounter was supported using ambient scribe technology/ voice AI technology. The patient consented to recording for the purpose of documenting the encounter. Provider reviewed content of the generatednote prior to signature. 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 Trochanteric bursitis, left hip Tobacco dependence in remission Hiatal hernia with GERD Left lumbar radiculitis Chronic renal failure (CRF), stage 3b Lumbar spondylosis Wears glasses Wears partial dentures Alcohol use Rash Walker as ambulation aid Arthritis High cholesterol Back pain Syncope Dietary restriction Constipation Chewing tobacco use History of pain when walking Hypertension Pulmonary embolism Home Medications ?Medication ?Instructions ?Recorded ?Last Taken ?Type cholecalciferol (vitamin D3) 25 25 mcg PO DAILY SUPPLE MENT 02/07/25 02/17/25 History mcg (1,000 unit) tablet (Vitamin D3) magnesium 250 mg tablet 750 mg PO DAILY SUPPLEMENT 0 02/07/25 02/13/25 History lisinopril 5 mg tablet 5 mg PO DAILY #30 tabs 02/27 Unknown Rx apixaban 2.5 mg tablet (Eliquis) 2.5 mg PO BID #60 tab s 02/28/25 Unknown Rx apixaban 5 mg tablet (Eliquis) 5 mg PO BID #120 tabs 0 03/27/25 Unknown Rx cephalexin 500 mg capsule 500 mg PO TID #42 caps 03/27 Unknown Rx glipizide 5 mg tablet 5 mg PO BID 03/27/25 Unknown History Allergy/AdvReac Type Severity Reaction Status Date / Time No Known Allergies Allergy Verified 03/27/25 09:56 Family History Son VTE (venous thromboembolism) many family members have had blood clots......possible inherited hypercoagulable disorder. Surgical History Status post left hip replacement Hx of right cataract extraction Hx of left cataract extraction Hx of appendectomy History of right hip replacement Social History household members: none housing: house number of children: 7 current occupational status: retired Smoking Status: Former smoker Tobacco: How many years used: 35 Smokeless tobacco user: snuff how long ago did patient quit smokin years ago alcohol intake: current alcohol intake frequency: holidays/special occasions only details: has an occasional beer in the summer and a shot of whiskey in the winter. substance use type: does not use Vital Signs Vital Signs Vital Signs: 03/27/25 14:34 Temperature 97.1 F L Temperature Source Temporal Pulse Rate 92 Respiratory Rate 18 Blood Pressure 151/68 H Blood Pressure Mean 95 Blood Pressure Source Monitor Weight Weight: 255 lb 2.86 oz Body Mass Index (BMI) 35.6 Physical Exam Narrative Right lower extremity: Inspection : presence of venous stasis ulcer, multiple small patches in the anterior valentine with largest measuring 1 x 1 cm. There is granulation tissue at the base. Minimal fibrinous exudates/biofilm.Very healthy appearing and appear to be healing. Palpation: 2+ pitting edema Motor: 5+ plantarflexion and dorsiflexion. No pain with passive dorsiflexion Sensation: Reports diminished sensation to light touch vascular: Doppler ultrasound used to assess blood flow, biphasic signal. Foot is warm. No palpable pulses on my exam. Debridement Note Debridement Note No debridement was completed: No debridement was completed today Post-Debridement Measurements and Additional Note: Post-Debridement Measurements/Treatment WC - Nurse 1 - General Ulcer Assessment Start: 03/27/25 14:34 Freq: Status: Active Protocol: JEANNIE Activity Type Activity Date Activity User E-sign Co-sign Detail Recorded Client Recorded Date Recorded By Document 03/27/25 14:34 DL [id number] 03/27/25 14:49 DL 03/27/25 14:34 WC - Today's Visit Information Type of service Initial Visit Arrival Mode Ambulatory Transfer Assistance None Patient Identification Verified (Name & Yes ) Patient Requires Transmission-Based No Precautions Height and Weight Height 5 ft 11 in Weight 255 lb 2.86 oz Weight in Pounds 255.2 lbs Body Mass Index (BMI) 35.6 BMI Classification Obese Vital Signs Temperature (97.8 F-99.1 F) 97.1 F L Temperature Source Temporal Pulse Rate (60-100) 92 Pulse Location Monitor Respiratory Rate (12-18) 18 Respiratory rate source Observation Blood Pressure (90/60-120/80) 151/68 H Blood Pressure Mean 95 Source Monitor Pain Scale: 0-10 Numeric Is Patient Pain Free? Yes Lower Extremity Assessment/ Foot Assessment/ Toe Nail Assessment Left -Posterior Tibial Palpable No -Posterior Tibial Doppler Multiphasic -Dorsalis Pedis Palpable No -Dorsalis Pedis Doppler Multiphasic -Extremity Color Normal -Hair Growth on Legs No -Hair Growth on Toes No -Temperature of Extremity Warm -Capillary Refill Less than 3 Seconds -Dependent Rubor No -Blanched when Elevated No -Other Deformity No -Prior Foot Ulcer No -Charcot Joint No -Prior Amputation No -Thick No -Discolored No -Deformed No -Improper Length & Hygeine No Right -Posterior Tibial Palpable No -Posterior Tibial Doppler Multiphasic -Dorsalis Pedis Palpable No -Dorsalis Pedis Doppler Multiphasic -Extremity Color Normal -Hair Growth on Legs No -Hair Growth on Toes No -Temperature of Extremity Warm -Capillary Refill Less than 3 Seconds -Dependent Rubor No -Blanched when Elevated No -Lipodermatosclerosis No -Other Deformity No -Prior Foot Ulcer No -Charcot Joint No -Prior Amputation No -Thick No -Discolored No -Deformed No -Improper Length & Hygeine No Teaching Assessment Preferences Verbal Readiness To Learn Good Willingness to Engage in Self Management Med Activies Readiness to Engage in Self Management Med Activities Anxiety Level Calm Cooperation Cooperative Perception Coherent Interest in Health Problem Asks Questions Education Importance Acknowledges Need Does Patient Smoke tobacco or other No substances Smoking Status Former smoker Is Patient Diabetic Yes Functional Assessment Recent Decline in Ability to Perform Denies Any Declines Culture/Rastafari/Calibrator Barometers Cultural/Rastafari Needs that may affect No Treatment Plan Would you allow our hospital solutions analyst to No meet you for the purpose of spiritual/ emotional support? Calibrator Barometers to contact place of congregation No WC - Nurse 1 - General Ulcer Measurement Start: 03/27/25 14:34 Freq: Status: Active Protocol: Activity Type Activity Date Activity User E-sign Co-sign Detail Recorded Client Recorded Date Recorded By Document 03/27/25 14:34 DL [id number] 03/27/25 14:49 DL 03/27/25 14:34 Wound Center Nurse 1 #1 RLE Ant -Current Size (cm) - Length 13.5 -Current Size (cm) - Width 4.3 -Current Size (cm) - Depth 0.1 -Total Square Cm 58.05 -Photo Taken Yes -Exudate Amt Large -Exudate Type Serosanguineous -Wound Margin Distinct, Outline Attached -Granulation Amt Medium (34-66%) -Granulation Quality [place] -Necrosis Amt Medium (34-66%) -Necrotic Tissue Type Adherent Slough -Structure Exposed N/A -Texture (Dilma-wound Skin Appearance) Localized Edema ,Scarring -Moisture (Dilma-wound Skin Appearance) No Abnormality -Color (Dilma-wound Skin Appearance) No Abnormality -Temperature (Dilma-wound Skin No Abnormality Appearance) (Pt Warm) -Tenderness on Palpation (Dilma-wound No Skin Appearance) -Ulcer Cleansing Soap and Water -Foul Odor after Cleansing No -Anesthetic Used 4% Lidocaine Solution Right Calf (cm) 41.5 Right Ankle (cm) 25.6 Left Calf (cm) 43 Left Ankle (cm) 25.5 WC - Nurse 2 - General Ulcer CM Notes Start: 03/27/25 14:34 Freq: Status: Active Protocol: Activity Type Activity Date Activity User E-sign Co-sign Detail Recorded Client Recorded Date Recorded By Document 03/27/25 15:21 JF [id number] 03/27/25 15:31 JF 03/27/25 15:21 Wound Center Nurse 2 #1 RLE Ant -Time 15:22 -Correct Patient Yes -Correct Side, Site, Position No -Correct Procedure No -Procedure Performed No -Post Debridement (cm) - Length 14 -Post Debridement (cm) - Width 5 -Post Debridement (cm) - Depth 0.1 -Total Square (Post) (cm) 70 -Area of Debridement (cm) - Length 14 -Area of Debridement (cm) - Width 5 -Total Square (Area) (cm) 70 -Tunneling No -Undermining/Tunneling No -Circular Undermining No -Wound/Ulcer Outcome Not Healed -Ulcer Cleansing Rinsed/ Irrigated with Saline -Bleeding Controlled with Pressure -Treatment Response Procedure Tolerated Well -Offloading No -Debridement - Subq, 1st 20sq cm No Pain Scale: 0-10 Numeric Is Patient Pain Free? Yes Charges/Coding Visit Charges Office Visits / Consults: 77095 OV L3 New 30min Assessment/Plan Assessment/Plan (1) Ulcer of right leg: CODE(S): L97.919 - Non-pressure chronic ulcer of unspecified part of rightlower leg with unspecified severity QUALIFIERS: Non-pressure ulcer stage: limited to breakdown of skin Qualified Code(s): L97.911 - Non-pressure chronic ulcer of unspecified part of right lower leg limited to breakdown of skin PLAN: Assessment and Plan The patient is a 79-year-old male with a history of venous stasis ulcer and deepvein thrombosis, presenting for management of the venous stasis ulcer. Followinghip replacement surgery, the patient developed bilateral deep vein thrombosis, confirmed by ultrasound, with no significant change noted infollow- up imaging. The venous stasis ulcer, which worsened postoperatively, should be managed with hydrogel and Adaptic dressings, with plans to assess blood flow using ankle- brachial indices before considering compression therapy. Once adequate inflow is confirmed, I would recommend compression. My plan is to refer him to vascular surgery/wound care ([facility] and Dr. Hammond) who can manage both the ulcer as well asthe vascular component of his disease. I have ordered ABIs. Patient happy with the plan Patient will continue to follow with his PCP for his Eliquis/DVT treatment, and vascular surgery can assist as well as needed. 03/27/25 2388 Cosigner Signature (if applicable): CC: ~ Signed [facility]07-01-2025 Discharge summary Author Asia Dodd [facility] Note Date/Time February 28, 2025 2:45p m [facility] Medical Records Department [address] [place] [address] Instructions for Home/Discharge Instructions 02/27/25 1313 MR#: [id number] Acct: [id number] Name: JEREMIAH VILLA Rep #:[id number] : 1945 79 From: Asia Dodd DO PCP: PRISCILLA Almanzar Status:ADM I N Discharge Instructions Diet Discharge Diet: Carb Control Diet and - (Low salt, low fat) DC O2, CPAP, BIPAP needs Home O2 Discharge instructions: No Dressing / Incision Discharge Activity: May Not Drive, May Shower and Use Walker Weight Bearing Status: Full weight bearing Keep extremity elevated above heart level: Legs Dressing / Incision Call your doctor if your incision/area has: Continuous Slow Oozing, Sudden Increased Bleeding, Increased Pain/ Swelling, Increased Redness and Foul Smelling Discharge Call your doctor if you observe: Fever of 101 or Higher, Inability to urinate, Inability to have a bowel movement, Shortness of breath, Dizziness, Fainting spells, Swelling in the ankles, Chest pain, Increased palpitations (irregular heartbeat), Calf discomfort and Uncontrolled pain Suture Line Care: Avoid Pulling/Pushing and Avoid Pinching/Bending Cleanse incision/area with: Soap & Water Follow Up Care Please Follow Up With: Kerwin Hugo PA When: 7-10 days from DC. Test Results: Test results from this visit will be discussed in further detail at your follow- up appointment, if applicable. Pending Tests Upon Discharge: none Discharge Plan Admission Admit Date/Time: 02/17/25 15:15 Primary Reason for Your Visit: Debiity due to L THR Attending Provider: Asia Dodd Primary Care Provider: Kerwin Hugo Instructions Patient Instructions: DVT Complications, Understanding Oxygen Therapy, What AreSnoring and Sleep Apnea?, Caring for Your Incision, Benign Prostatic Hyperplasia, ED Sleep Apnea, Obstructive Additional Instructions / Restrictions: 1. You have a urinary tract infection. We sent a culture but, the results willnot be back for 24-48 hours after you leave rehab. I am discharging you on an antibiotic called Cefadroxil which you will take twice a day. If the culture shows a bacteria that is resistant to this antibiotic then we will need to change the antibiotic. I will call Rahul IF we need to change the antibiotic. 2. You have a blood clot in the calf of the left leg. Generally these do not cause pulmonary emboli (PE) of any significance because the veins distal to the knee are small. We are going to keep you on the prophylactic dose of Eliquis (ablood thinner) for now. There is a chance that the clot will propagate and get bigger and extend into the thigh ans this would mean you would need a higher dose of the Eliquis. I am giving you a requisition to have another venous ultrasound of the legs in 1 week. You should call me OR Dr. Hugo 1 day after the test to go over the results with you and make a decision about whether or not the dose of the Eliquis needs to be increased from 2.5 mg to 5 mg. If you have chest pain, shortness of breath, racing heart, dizziness, increasing calf or thigh pain or if you pass put then call 911 and get to an emergency room because these are symptoms of a blood clot to the lung and this can be fatal. 3. Your oxygen drops at night when you are sleeping. You may have sleep apnea. When the oxygen drops you can have problems with the rhythm of the heart. If you decide you would like to be evaluated for sleep apnea you will need a overnight sleep study. You have been refusing to wear the oxygen at night whileon rehab so I am not sending you home with a prescription for oxygen because youwould have to pay for it and it is expensive, claire if you are not going to wear it. I have give you some literature to read about sleep apnea and all the things it can cause in addition to problems with the rhythm of the heart. 4. You have chronic kidney disease. The CT scan of the abdomen showed the R kidney is severely atrophic......it likely is not very functional. Glipizide isexcreted through the kidney and in people with chronic kidney disease this drug can accumulate due to to poor excretion from the kidneys and lead to low blood sugars. We have changed this medication to Amaryl (glimepiride) which is a diabetic drug that is excreted through the liver. This is a safer drug for you. While you were in the hospital you had acute on chronic kidney failure and yourcreatinine (a test of kidney function) went up to 2.2. This has resolved and your creatinine has been stable at 1.34 - 1.47 the last week on rehab. This is consistent with stage III (moderate) chronic renal failure. You may need to follow up with a dough mixer operator (kidney doctor) in the future. Make sure to maintain good hydration. 5. The CT scan of the abdomen also showed your prostate is enlarged. You had urine retention in the hospital and had to have a catheter inserted to drain thebladder. We started you on a drug for the prostate called Flomax (also called tamsulosin) and we were able to get the catheter out. I recommend you continue to take this drug. 6. You are mildly anemic due to blood loss related to surgery. The blood countis stable at discharge from rehab. Your HGB (hemoglobin) is 10.4 at discharge. It was 15.8 prior to surgery. 7. You have many medical problems Jeremiah. You should be seeing your PCP at least every 3 months. 8. If you have any questions after leaving rehab please do not hesitate to callme. OFFICE: [phone] CELL: [phone] NURSES STATION ON REHAB: [phone] Discharge Orders/Prescriptions Prescriptions: New glimepiride 1 mg Tablet 3 mg PO BREAKFAST Qty: 90 0RF Rx Instructions: 3 tabs each morning lisinopril 5 mg Tablet 5 mg PO DAILY Qty: 30 0RF oxycodone 5 mg Tablet 5 mg PO Q6H PRN PRN (Reason: Pain Score 4-10) 7 Days Qty: 15 0RF cefadroxil 500 mg capsule 500 mg PO BID Qty: 14 0RF Eliquis 2.5 mg tablet 2.5 mg PO BID Qty: 60 0RF Rx Instructions: 1 ab every 12 H Continued acetaminophen 500 mg tablet 1,000 mg PO Q6H Qty: 100 0RF tamsulosin 0.4 mg Capsule 0.4 mg PO DAILY@0830 Qty: 30 0RF cholecalciferol (vitamin D3) [Vitamin D3] 25 mcg (1,000 unit) tablet 25 mcg PO DAILY magnesium 250 mg tablet 750 mg PO DAILY pantoprazole 40 mg Tablet,Delayed Release (Dr/Ec) 40 mg PO BID Qty: 0 0RF Discontinued oxycodone 5 mg tablet 5 - 10 mg PO Q4H PRN (Reason: pain) Rx Instructions: 5mg pain 3-5 10mg pain 6-10 vitamin K2 100 mcg capsule 100 mcg PO DAILY Eliquis 2.5 mg tablet 2.5 mg PO BID Qty: 66 0RF gabapentin 300 mg capsule 300 mg PO TID Qty: 90 0RF sennosides-docusate sodium [Stimulant Laxative Plus] 8.6-50 mg Tablet 2 tab PO BID Qty: 0 0RF Other Ambulatory Orders: Venous Duplex US - Jose Luis Extrem (Routine) Facility: [facility] - Location: [facility] Ordered By: Dr. Asia Dodd Referrals / Follow Up: Kerwin Hugo [Other] - 03/08/25 9:10 am Venous Duplex Ultrasound [Other] - 03/09/25 10:00 am Rasheed Galindo DO [Med Staff - Active Staff] - 03/27/25 10:00 am () Disposition Disposition (needs filled in before D/C Order can be placed): Home Health Service 02/28/25 1445<Electronically signed by Asia Dodd DO>Asia Dodd DO CC: PRISCILLA Almanzar ~ Signed [facility] Work Phone: [phone]) 466-942207-01-2025 Discharge summary Author Asia Dodd [facility] Note Date/Time February 28, 2025 2:44p m [facility] Medical Records Department [address] [place] [id number] Discharge Summary 02/28/25 1401 MR#: [id number] Acct: [id number] Name: JEREMIAH VILLA Rep #:[id number] : 1945 79 From: Asia Dodd DO PCP: PRISCILLA Almanzar Status:ADM I N Location: [place] [id number] Providers Date of Admission: 02/17/25 Date of Discharge: 02/28/25 Primary Care Physician: PRISCILLA Almanzar Reason For Visit: LEFT HIP FRACTURE Diagnosis Discharge Diagnosis (1) Status post left hip replacement: Status: Acute Code(s): Z96.642 - Presence of left artificial hip joint Plan: Dr. Galindo-02/14/2025 (2) Physical debility: Status: Acute Code(s): R53.81 - Other malaise (3) Acute blood loss as cause of postoperative anemia: Status: Acute Code(s): D62 - Acute posthemorrhagic anemia Plan: Hemoglobin at discharge is stable at 10.4. (4) Acute renal failure superimposed on stage 3 chronic kidney disease: Status: Resolved Code(s): N17.9 - Acute kidney failure, unspecified; N18.30 - Chronic kidney disease, stage 3 unspecified Qualifiers: Acute renal failure type: unspecified Chronic kidney disease stage 3 subtype: stage 3b (GFR 30-44) Qualified Code(s): N17.9 - Acute kidney failure, unspecified; N18.32 - Chronic kidney disease, stage 3b Plan: Likely due to dehydration and IV contrast. Creat at DC from rehab is 1.47 (5) Urine retention: Status: Acute Code(s): R33.9 - Retention of urine, unspecified Plan: Resolved with addition of Flomax to drug regimen (6) UTI (urinary tract infection) due to urinary indwelling Tsang catheter: Status: Acute Code(s): T83.511A - Infection and inflammatory reaction due to indwelling urethral catheter, initial encounter; N39.0 - Urinary tract infection, site not specified Qualifiers: Indwelling urinary catheter type: indwelling urethral catheter Encounter type: initial encounter Qualified Code(s): T83.511A - Infection and inflammatory reaction due to indwelling urethral catheter, initial encounter; N39.0 - Urinary tract infection, site not specified Plan: Urine culture still pending at the time of DC from rehab. Tsang has been discontinued prior to DC. (7) DVT of lower limb, acute: Status: Acute Code(s): I82.409 - Acute embolism and thrombosis of unspecified deep veins of unspecifiedlower extremity Qualifiers: Affected thrombotic vein of extremity: calf muscle vein Laterality: left Qualified Code(s): I82.462 - Acute embolism and thrombosis of left calf muscular vein Plan: Left gastrocnemius vein. He will continue Eliquis 2.5 mg twice daily and have arepeat venous ultrasound of both lower extremities in 1 week. If there is no propagation would continue Eliquis at 2.5 mg twice daily. If there is propagation then he will need 5 mg twice daily for 3 months. (8) Superficial vein thrombosis: Status: Acute Code(s): I82.890 - Acute embolism and thrombosis of other specified veins Plan: Right great saphenous vein in the calf. (9) Orthostatic hypotension: Status: Resolved Code(s): I95.1 - Orthostatic hypotension Plan: Secondary to intravascular volume depletion. Resolved with increased fluid intake. (10) Sleep-disordered breathing: Status: Chronic Code(s): G47.30 - Sleep apnea, unspecified Plan: Overnight trending pulse ox has been abnormal x 2. Multiple desaturations lasting greater than 60 seconds while sleeping. Refused to wear oxygen most of the time he was on rehab. Literature was given to him on what obstructive sleepapnea is and the possible complications. If he desires could proceed with a formal sleep study. He would not give me an answer on this when we talked on the day of DC . (11) Dehydration: Status: Resolved Code(s): E86.0 - Dehydration Plan: Has to be reminded to maintain good fluid intake. (12) Chronic renal failure (CRF), stage 3b: Status: Chronic Code(s): N18.32 - Chronic kidney disease, stage 3b (13) BPH (benign prostatic hyperplasia): Status: Suspected Code(s): N40.0 - Benign prostatic hyperplasia without lower urinary tract symptoms Qualifiers: Lower urinary tract symptom presence: symptoms present Lower urinary tract symptom detail: urinary retention Qualified Code(s): N40.1 - Benign prostatic hyperplasia with lower urinary tract symptoms; R33.8 - Other retentionof urine Plan: Prostate is enlarged on CT scan of the abdomen. He was given a prescription forFlomax at discharge from rehab. (14) Diabetes mellitus, type 2: Status: Chronic Code(s): E11.9 - Type 2 diabetes mellitus without complications Qualifiers: Diabetes mellitus [facility] insulin use: without [facility] use Diabetesmellitus complication status: with kidney complications Diabetes mellitus complication detail: with chronic kidney disease Chronic kidney disease stage: stage 3 (moderate) Chronic kidney disease stage 3 subtype: stage 3b (GFR 30-44) Qualified Code(s): E11.22 - Type 2 diabetes mellitus with diabetic chronic kidney disease; N18.32 - Chronic kidney disease, stage 3b Plan: Because he had acute on chronic renal failure and a severely atrophic R kidney glipizide was discontinued as it is renally excreted. He was transitioned to Amaryl because it is excreted by the liver. There is last risk of hypoglycemia in patients with chronic renal failure on Amaryl. At the time of discharge she is taking 3 mg of Amaryl in the AM. Blood sugars are all under 200. No hypoglycemia. (15) Renal atrophy, right: Status: Chronic Code(s): N26.1 - Atrophy of kidney (terminal) Plan: Severe (16) Diverticulosis: Status: Chronic Code(s): K57.90 - Diverticulosis of intestine, part unspecified, without perforation or abscess without bleeding Medications at Discharge Home Medications cholecalciferol (vitamin D3) 25 mcg (1,000 unit) tablet (Vitamin D3) 25 mcg PO DAILY SUPPLEMENT 02/07/25 magnesium 250 mg tablet 750 mg PO DAILY SUPPLEMENT 02/07/25 pantoprazole 40 mg tablet,delayed release 40 mg PO BID GERD #0 tabs 02/17/25 acetaminophen 500 mg tablet 1,000 mg (2 x 500 mg) PO Q6H pain #100 tabs 02/27/25 glimepiride 1 mg tablet 3 mg (3 x 1 mg) PO BREAKFAST #90 tabs 02/27/25 lisinopril 5 mg tablet 5 mg PO DAILY #30 tabs 02/27/25 oxycodone 5 mg tablet 5 mg PO Q6H PRN PRN Pain Score 4-10 1 week #15 tabs 02/27/25 tamsulosin 0.4 mg capsule 0.4 mg PO DAILY@0830 Urine retention #30 caps 02/27/25 apixaban 2.5 mg tablet (Eliquis) 2.5 mg PO BID #60 tabs 02/28/25 cefadroxil 500 mg capsule 500 mg PO BID #14 caps 02/28/25 Hospital Course Operations - (Left total hip replacement by Dr. Galindo on 02/14/2025.) Procedures - (Venous ultrasound of the lower extremities on 02/27/2025.) Summary of Care Provided Minutes Spent on Discharge: 35 Hospital Course: JEREMIAH VILLA, is a 79 M with a PMH of DM II, morbid obesity, suspected BPH, osteoarthritis, chronic renal failure (creat on preop labs was 1.59 with a GFR of 44 which is consistent with stage III 3B chronic renal failure), tobacco dependence in remission and a PE after L hip replacement in the past who underwent a right total hip replacement by Dr. Gailndo on 02/14/2025. Post operatively he was somnolent and unarousable. ABG showed a pH of 7.15 with a PCO2 of 84 and a PO2 of 94 on BiPAP (later transitioned to AVAPS). Chest x-ray showed a right upper lobe infiltrate. He was given Lasix in PACU. After about an hour on AVAPS he became arousable and the ABG showed pH of 7.27 with a PCO2 of 60 and a pO2 of 83. He was transferred to the intensive care unit. He was started on Unasyn for suspected aspiration PNA. At some point he was reported tohave had a coffee ground emesis. A CT scan of the abdomen with contrast was done and showed a right perihilar/right lower lobe multifocal pulmonary airspacedisease/consolidation likely representing pneumonia, chronic right renal atrophy, cholelithiasis without evidence of acute cholecystitis, small sliding hiatal hernia, colonic diverticulosis with no evidence of diverticulitis, mild prostatomegaly and moderate diffuse spondylosis. There was no evidence of active bleeding. Consult was ordered with GI. An EGD was done on 02/15/2025 andshowed grade C erosive esophagitis with no bleeding. There were no gross lesions in the entire stomach and no gross lesions in the entire examined duodenum. CT scan of the abdomen showed There was evidence of old blood in the nasopharynx and oropharynx. Creatinine on 02/16/2025 had risen to 2.2 and this was thought to be secondary to intravascular volume depletion and IV contrast. He was hydrated and the creatinine came down to 1.92 on 02/17/2025. He has been retaining urine in the hospital. Tsang catheter was removed but, PVR on 02/17/25 was 523 and the Tsang was re-inserted. He was started on Flomax. He takes an herbal prostate supplement at home and denies slow stream and dribbling. He was transferred to the acute inpatient rehab unit at [facility] on 02/17/2025 for 3 hours of therapy daily to restore function/independence at ornear his level prior to the recent hip replacement. He lives alone in a one-story house with a basement. He normally ambulates with a rollator walker. He is independent with his activities of daily living. Jeremiah was retaining urine at presentation to acute inpatient rehab. Foleycatheter was inserted and he was started on Flomax 0.4 mg daily. After 6 doses the catheter was removed for a voiding trial and the most recent postvoid residuals are 21 and 77. Overnight trending pulse ox at admission to rehab was abnormal with 3 desaturations below 88% lasting greater than 60 seconds. He wasplaced on supplemental oxygen when sleeping but is often noncompliant with this. The overnight trending pulse ox was repeated on February 28, 2025 and it showed 6 desaturations below 88 lasting for greater than 60 seconds with a kelly of 72%. The longest episode of desaturation was 2 minutes and 38 seconds. I discussed the results of the overnight trending pulse ox with Jeremiah and he informed me that he does not want to wear oxygen. He was given literature explaining what obstructive sleep apnea is and the possible complications. If he changes in hismind in the future we could proceed with a formal overnight sleep study. Creatinine peaked at 2.2 while in the hospital. He has been taking glipizide 5 mg twice daily as an outpatient and his creatinine on preop labs was 1.59. He chronically is IV depleted because he does not want to get up to use the RR. Since glipizide is excreted renally this was discontinued and he was transitioned to glimepiride 3 mg every morning. Glimepiride is excreted throughthe liver and there is less chance of hypoglycemia with this medication rather than glipizide. Lisinopril was discontinued on the acute side of the hospital postoperatively due to acute on chronic renal failure. Blood pressures were initially high on rehab and the creatinine had improved so lisinopril 5 mg dailywas restarted. At the time of discharge his potassium is 4.6 and the BUN is 31 with a stable creatinine of 1.47. He developed a low grade fever in the eveningon 02/26/2025. Resting heart rate was increased and the blood pressure was low with positive orthostatics. He had no cough and denied dysuria. UA was done and revealed greater than 100 WBCs per high- power field. He was empirically started on an antibiotic and a urine culture is pending at the time of his discharge. CBC on 02/27/2025 showed a leukocytosis with left shift. He has had lower extremity edema since arrival on rehab and has repeatedly told me that hislegs do not swell at home but I do not believe this. He sits with them dependent most of the day. Lower extremity venous ultrasounds were obtained andhe had a DVT in the left gastrocnemius vein and a superficial thrombosis in the right great saphenous vein distal to the knee. He has been taking Eliquis 2.5 mg twice daily. It is not known at the time of discharge whether this DVT developed while on Eliquis or if he actually had it prior to admission for surgery. We are discharging him on 2.5 mg of Eliquis twice daily and have ordered a repeat bilateral lower extremity ultrasound for 1 week. If the clot remains only in the calf vein would continue 2.5 mg twice daily but if it propagates at all he will need to be increased to 5 mg twice daily of Eliquis for total of 3 months. He denies shortness of breath on the date of discharge. Orthostatic hypotension and tachycardia resolved with hydration. Results of theurine culture still pending at the time of discharge. He is being discharged oncefadroxil 500 mg twice daily. If the urine culture shows resistance to this antibiotic I will call his nephew Rahul and change the antibiotic. He has only intermittently been cooperative with therapy and he decides when he has had enough. At the time of discharge he is ambulating 200 feet witha 4 wheeled walker at contact-guard assist. He is able to do ten 4 inch and 6 inch steps with bilateral upper extremity support. He is independent with eating and he is supervision/set up for grooming. He requires minimal assistance with bathing and he is supervision/set up with upper body dressing but is still requiring moderate assistance for lower body dressing. He is contact-guard assist for toilet transfer and requires assistance for hygiene. Has been incontinent of urine. He is contact-guard assist for tub/shower transfer. He declined to use adaptive equipment for lower body dressing to improve his independence and tells us that he will have help with all of these tasks at home. Help will not be available 23/03. He has an appointment scheduled with his PCP, Dr. Kerwin Hugo, for March 08 at 10 AM. He has an appointment to obtain a bilateral lower extremity venous ultrasound on 03/09/2025 at 10 AM at [facility]. He will follow-up with Dr. Galindo on 03/27/2025 at 10 AM. The symptoms of a pulmonary embolus were reviewed with Jeremiah prior to dischargeand he was instructed to call 911 and get to an ER if he has any of the symptoms. 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 Physical Exam Const alert, oriented x3 and no apparent distress Constitutional Narrative: Resists getting a shower, even after incontinence. General Appearance: cooperative HEENT HEENT Narrative: Dry MM. No evidence of thrush Eyes PERRL, EOMs intact bilaterally, conjunctivae normal and no scleral icterus Eyes Narrative: No discharge from the eyes and no mattering of the eyelashes. No visual field cuts. No nystagmus. Smooth pursuit. Neck supple, No nodes and no carotid bruits General: trachea midline Chest Chest: symmetrical chest wall rise Resp Resp Narrative: Some coarse crackles in the mid upper right lung posteriorly. No wheezing. Nottachypneic. No conversational dyspnea. Crackles cleared after few deep breaths. Effort and Inspection: able to speak in complete sentences Cardio regular rhythm, no murmurs, no rub and no gallops Cardio Narrative: Increased resting heart rate. No ectopy. GI GI Narrative: Obese, soft, ND, normal BS's, no guarding with palpation. no CVA tenderness Bladder / Kidney Exam: catheter in place urethral (urine in the Tsang bag is dark alber. ) Extremity no calf tenderness Extremity Narrative: Lower extremity edema has improved significantly with compression. Skin Skin Narrative: The incisions are intact with no dehiscence, no dilma-incisional erythema and no discharge. Neuro oriented x3, CN's II-XII intact bilaterally, moves all extremities and no focal motor deficits Psych mental status grossly normal, thought process normal and speech normal; Negativefor denies hallucinations, denies homicidal ideation or denies suicidal ideation Psych Narrative: Only cooperative sometimes. Appearance: grossly normal Attitude: calm, engaged and other Uncooperative and belligerent at times. Activity / Motor Behavior: appropriate eye contact Medical Records Data Homelessness:: Sheltered Weight / BMI Weight Weight: 284 lb 2.813 oz Body Mass Index (BMI) 39.6 ABG / Lab / Microbiology Data 02/27/25 09:54 02/27/25 05:15 Laboratory: Laboratory Results - last 24 hr 02/27/25 16:40: POC Glucose 145 H 02/27/25 17:00: Urine Color Straw, Urine Clarity Cloudy, Urine pH 6.0, Ur Specific [place] 1.010, Urine Protein 30 H, Urine Glucose (UA) Normal, Urine Ketones Negative, Urine Occult Blood 150 H, Urine Nitrite Negative, Urine Bilirubin Negative, Urine Urobilinogen Normal, Ur Leukocyte Esterase 500 H, Urine RBC 0-5 SEEN, Urine WBC >100 SEEN, Ur Squamous Epith Cells 0-5 SEEN, UrineBacteria 1+, Urine Mucus 0 SEEN 02/27/25 22:19: POC Glucose 202 H 02/28/25 06:22: POC Glucose 137 H 02/28/25 11:05: POC Glucose 129 H Microbiology: Microbiology 02/17/25 16:58 Nasal Secretion SARS-CoV-2 Antigen (Rapid) - Final Radiography Diagnostic Testing: Radiology Impression Venous Doppler Study 02/27/25 10:51 Interpretation Summary Acute deep vein thrombosis noted in the left gastrocnemius vein. Acute superficial vein thrombosis noted in the right great saphenous vein below the knee. Ordering Physician: Asia Dodd Referring Physician: Kerwin Hugo Performed By: Jessica Rm, ALEKSANDER, RVT D/C Instructions Discharge Diet: Carb Control Diet and - (Low salt, low fat) Weight Bearing Status: Full weight bearing Keep extremity elevated above heart level: Legs Call your doctor if your incision/area has: Continuous Slow Oozing, Sudden Increased Bleeding, Increased Pain/ Swelling, Increased Redness and Foul Smelling Discharge Call your doctor if you observe: Fever of 101 or Higher, Inability to urinate, Inability to have a bowel movement, Shortness of breath, Dizziness, Fainting spells, Swelling in the ankles, Chest pain, Increased palpitations (irregular heartbeat), Calf discomfort and Uncontrolled pain Suture Line Care: Avoid Pulling/Pushing and Avoid Pinching/Bending Cleanse incision/area with: Soap & Water DC O2, CPAP, BIPAP Needs Home O2 Discharge instructions: No Pending Tests Upon Discharge: none Please Follow Up With: Kerwin Hugo PA When: 7-10 days from DC. Meaningful Use Info Meaningful Use Meaningful Use Diagnoses (Choose all that apply): None applicable Ischemic Stroke Statin Dosing Therapy Reference: STATIN DOSE THERAPY REFERENCE: * Patients > 75 years receive moderate or high dose statin therapy. * Patients 75 years or YOUNGER should receive HIGH intensity statin dose unless contraindicated. You will be required to document reason for non-treatment if statin daily dose does not meet guidelines. HIGH DOSE STATIN THERAPY DAILY Atorvastatin > than or = to 40 mg Rosuvastatin > than or = to 20 mg Amlodipine + Atorvastatin > than or = to 2.5/40 mg Ezetimibe + Simvastatin 10/80 mg Simvastatin 80mg Discharge Plan Admission Admit Date/Time: 02/17/25 15:15 Primary Reason for Your Visit: Debiity due to L THR Attending Provider: Asia Dodd Primary Care Provider: Kerwin Hugo Instructions Patient Instructions: DVT Complications, Understanding Oxygen Therapy, What AreSnoring and Sleep Apnea?, Caring for Your Incision, Benign Prostatic Hyperplasia, ED Sleep Apnea, Obstructive Additional Instructions / Restrictions: 1. You have a urinary tract infection. We sent a culture but, the results willnot be back for 24-48 hours after you leave rehab. I am discharging you on an antibiotic called Cefadroxil which you will take twice a day. If the culture shows a bacteria that is resistant to this antibiotic then we will need to change the antibiotic. I will call Rahul IF we need to change the antibiotic. 2. You have a blood clot in the calf of the left leg. Generally these do not cause pulmonary emboli (PE) of any significance because the veins distal to the knee are small. We are going to keep you on the prophylactic dose of Eliquis (ablood thinner) for now. There is a chance that the clot will propagate and get bigger and extend into the thigh ans this would mean you would need a higher dose of the Eliquis. I am giving you a requisition to have another venous ultrasound of the legs in 1 week. You should call me OR Dr. Hugo 1 day after the test to go over the results with you and make a decision about whether or not the dose of the Eliquis needs to be increased from 2.5 mg to 5 mg. If you have chest pain, shortness of breath, racing heart, dizziness, increasing calf or thigh pain or if you pass put then call 911 and get to an emergency room because these are symptoms of a blood clot to the lung and this can be fatal. 3. Your oxygen drops at night when you are sleeping. You may have sleep apnea. When the oxygen drops you can have problems with the rhythm of the heart. If you decide you would like to be evaluated for sleep apnea you will need a overnight sleep study. You have been refusing to wear the oxygen at night whileon rehab so I am not sending you home with a prescription for oxygen because youwould have to pay for it and it is expensive, claire if you are not going to wear it. I have give you some literature to read about sleep apnea and all the things it can cause in addition to problems with the rhythm of the heart. 4. You have chronic kidney disease. The CT scan of the abdomen showed the R kidney is severely atrophic......it likely is not very functional. Glipizide isexcreted through the kidney and in people with chronic kidney disease this drug can accumulate due to to poor excretion from the kidneys and lead to low blood sugars. We have changed this medication to Amaryl (glimepiride) which is a diabetic drug that is excreted through the liver. This is a safer drug for you. While you were in the hospital you had acute on chronic kidney failure and yourcreatinine (a test of kidney function) went up to 2.2. This has resolved and your creatinine has been stable at 1.34 - 1.47 the last week on rehab. This is consistent with stage III (moderate) chronic renal failure. You may need to follow up with a dough mixer operator (kidney doctor) in the future. Make sure to maintain good hydration. 5. The CT scan of the abdomen also showed your prostate is enlarged. You had urine retention in the hospital and had to have a catheter inserted to drain thebladder. We started you on a drug for the prostate called Flomax (also called tamsulosin) and we were able to get the catheter out. I recommend you continue to take this drug. 6. You are mildly anemic due to blood loss related to surgery. The blood countis stable at discharge from rehab. Your HGB (hemoglobin) is 10.4 at discharge. It was 15.8 prior to surgery. 7. You have many medical problems Jeremiah. You should be seeing your PCP at least every 3 months. 8. If you have any questions after leaving rehab please do not hesitate to callme. OFFICE: [phone] CELL: [phone] NURSES STATION ON REHAB: [phone] Discharge Orders/Prescriptions Prescriptions: New glimepiride 1 mg Tablet 3 mg PO BREAKFAST Qty: 90 0RF Rx Instructions: 3 tabs each morning lisinopril 5 mg Tablet 5 mg PO DAILY Qty: 30 0RF oxycodone 5 mg Tablet 5 mg PO Q6H PRN PRN (Reason: Pain Score 4-10) 7 Days Qty: 15 0RF cefadroxil 500 mg capsule 500 mg PO BID Qty: 14 0RF Eliquis 2.5 mg tablet 2.5 mg PO BID Qty: 60 0RF Rx Instructions: 1 ab every 12 H Continued acetaminophen 500 mg tablet 1,000 mg PO Q6H Qty: 100 0RF tamsulosin 0.4 mg Capsule 0.4 mg PO DAILY@0830 Qty: 30 0RF cholecalciferol (vitamin D3) [Vitamin D3] 25 mcg (1,000 unit) tablet 25 mcg PO DAILY magnesium 250 mg tablet 750 mg PO DAILY pantoprazole 40 mg Tablet,Delayed Release (Dr/Ec) 40 mg PO BID Qty: 0 0RF Discontinued oxycodone 5 mg tablet 5 - 10 mg PO Q4H PRN (Reason: pain) Rx Instructions: 5mg pain 3-5 10mg pain 6-10 vitamin K2 100 mcg capsule 100 mcg PO DAILY Eliquis 2.5 mg tablet 2.5 mg PO BID Qty: 66 0RF gabapentin 300 mg capsule 300 mg PO TID Qty: 90 0RF sennosides-docusate sodium [Stimulant Laxative Plus] 8.6-50 mg Tablet 2 tab PO BID Qty: 0 0RF Other Ambulatory Orders: Venous Duplex US - Jose Luis Extrem (Routine) Facility: [facility] - Location: [facility] Ordered By: Dr. Asia Dodd Referrals / Follow Up: Kerwin Hugo [Other] - 03/08/25 9:10 am Venous Duplex Ultrasound [Other] - 03/09/25 10:00 am Rasheed Galindo DO [Med Staff - Active Staff] - 03/27/25 10:00 am () Disposition Disposition (needs filled in before D/C Order can be placed): Home Health Service Charges/Coding Visit Charges Inpatient E&M: 47981 Disch Hosp >30min 02/28/25 1444 <Electronically signed by Asia Dodd DO> Cosigner Signature (if applicable): CC: Dr. Rasheed Galindo DO; Dr. Asia Dodd DO; PRISCILLA Almanzar~ Signed [facility] Work Phone: [phone] 754-192607-01-2025 Discharge summary [facility] Medical Records Department [address] [place] [id number] Instructions for Home/Discharge Instructions 02/27/25 1313 MR#: [id number] Acct: [id number] Name: JEREMIAH VILLA Rep #:[id number] : 1945 79 From: Asia Dodd DO PCP: PRISCILLA Almanzar Status:ADM I N Discharge Instructions Diet Discharge Diet: Carb Control Diet and - (Low salt, low fat) DC O2, CPAP, BIPAP needs Home O2 Discharge instructions: No Dressing / Incision Discharge Activity: May Not Drive, May Shower and Use Walker Weight Bearing Status: Full weight bearing Keep extremity elevated above heart level: Legs Dressing / Incision Call your doctor if your incision/area has: Continuous Slow Oozing, Sudden Increased Bleeding, Increased Pain/ Swelling, Increased Redness and Foul Smelling Discharge Call your doctor if you observe: Fever of 101 or Higher, Inability to urinate, Inability to have a bowel movement, Shortness of breath, Dizziness, Fainting spells, Swelling in the ankles, Chest pain,Increased palpitations (irregular heartbeat), Calf discomfort and Uncontrolled pain Suture Line Care: Avoid Pulling/Pushing and Avoid Pinching/Bending Cleanse incision/area with: Soap & Water Follow Up Care Please Follow Up With: Kerwin Hugo PA When: 7-10 days from DC. Test Results: Test results from this visit will be discussed in further detail at your follow- up appointment, if applicable. Pending Tests Upon Discharge: none Discharge Plan Admission Admit Date/Time: 02/17/25 15:15 Primary Reason for Your Visit: Debiity due to L THR Attending Provider: Asia Dodd Primary Care Provider: Kerwin Hugo Instructions Patient Instructions: DVT Complications, Understanding Oxygen Therapy, What AreSnoring and Sleep Apnea?, Caring for Your Incision, Benign Prostatic Hyperplasia, ED Sleep Apnea, Obstructive Additional Instructions / Restrictions: 1. You have a urinary tract infection. We sent a culture but, the results willnot be back for 24-48hours after you leave rehab. I am discharging you on an antibiotic called Cefadroxil which you willtake twice a day. If the culture shows a bacteria that is resistant to this antibiotic then we willneed to change the antibiotic. I will call Rahul IF we need to change the antibiotic. 2. You have a blood clot in the calf of the left leg. Generally these do not cause pulmonary emboli(PE) of any significance because the veins distal to the knee are small. We are going to keep you on the prophylactic dose of Eliquis (ablood thinner) for now. There is a chance that the clot will propagate and get bigger and extend into the thigh ans this would mean you would need a higher dose ofthe Eliquis. I am giving you a requisition to have another venous ultrasound of the legs in 1 week.You should call me OR Dr. Hugo 1 day after the test to go over the results with you and makea decision about whether or not the dose of the Eliquis needs to be increased from 2.5 mg to 5 mg. If you have chest pain, shortness of breath, racing heart, dizziness, increasing calf or thigh pain or if you pass put then call 911 and get to an emergency room because these are symptoms of a blood clot to the lung and this can be fatal. 3. Your oxygen drops at night when you are sleeping. You may have sleep apnea. When the oxygen drops you can have problems with the rhythm of the heart. If you decide you would like to be evaluated for sleep apnea you will need a overnight sleep study. You have been refusing to wear the oxygen at night whileon rehab so I am not sending you home with a prescription for oxygen because youwould haveto pay for it and it is expensive, claire if you are not going to wear it. I have give you some literature to read about sleep apnea and all the things it can cause in addition to problems with the rhythm of the heart. 4. You have chronic kidney disease. The CT scan of the abdomen showed the R kidney is severely atrophic......it likely is not very functional. Glipizide isexcreted through the kidney and in people with chronic kidney disease this drug can accumulate due to to poor excretion from the kidneys and lead to low blood sugars. We have changed this medication to Amaryl (glimepiride) which is a diabetic drug that is excreted through the liver. This is a safer drug for you. While you were in the hospitalyou had acute on chronic kidney failure and yourcreatinine (a test of kidney function) went up to 2.2. This has resolved and your creatinine has been stable at 1.34 - 1.47 the last week on rehab. This is consistent with stage III (moderate) chronic renal failure. You may need to follow up with a dough mixer operator (kidney doctor) in the future. Make sure to maintain good hydration. 5. The CT scan of the abdomen also showed your prostate is enlarged. You had urine retention in thehospital and had to have a catheter inserted to drain thebladder. We started you on a drug for the prostate called Flomax (also called tamsulosin) and we were able to get the catheter out. I recommend you continue to take this drug. 6. You are mildly anemic due to blood loss related to surgery. The blood countis stable at discharge from rehab. Your HGB (hemoglobin) is 10.4 at discharge. It was 15.8 prior to surgery. 7. You have many medical problems Jeremiah. You should be seeing your PCP at least every 3 months. 8. If you have any questions after leaving rehab please do not hesitate to callme. OFFICE: [phone] CELL: [phone] NURSES STATION ON REHAB: [phone] Discharge Orders/Prescriptions Prescriptions: New glimepiride 1 mg Tablet 3 mg PO BREAKFAST Qty: 90 0RF Rx Instructions: 3 tabs each morning lisinopril 5 mg Tablet 5 mg PO DAILY Qty: 30 0RF oxycodone 5 mg Tablet 5 mg PO Q6H PRN PRN (Reason: Pain Score 4-10) 7 Days Qty: 15 0RF cefadroxil 500 mg capsule 500 mg PO BID Qty: 14 0RF Eliquis 2.5 mg tablet 2.5 mg PO BID Qty: 60 0RF Rx Instructions: 1 ab every 12 H Continued acetaminophen 500 mg tablet 1,000 mg PO Q6H Qty: 100 0RF tamsulosin 0.4 mg Capsule 0.4 mg PO DAILY@0830 Qty: 30 0RF cholecalciferol (vitamin D3) [Vitamin D3] 25 mcg (1,000 unit) tablet 25 mcg PO DAILY magnesium 250 mg tablet 750 mg PO DAILY pantoprazole 40 mg Tablet,Delayed Release (Dr/Ec) 40 mg PO BID Qty: 0 0RF Discontinued oxycodone 5 mg tablet 5 - 10 mg PO Q4H PRN (Reason: pain) Rx Instructions: 5mg pain 3-5 10mg pain 6-10 vitamin K2 100 mcg capsule 100 mcg PO DAILY Eliquis 2.5 mg tablet 2.5 mg PO BID Qty: 66 0RF gabapentin 300 mg capsule 300 mg PO TID Qty: 90 0RF sennosides-docusate sodium [Stimulant Laxative Plus] 8.6-50 mg Tablet 2 tab PO BID Qty: 0 0RF Other Ambulatory Orders: Venous Duplex US - Jose Luis Extrem (Routine) Facility: [facility] - Location: [facility] Ordered By: Dr. Asia Dodd Referrals / Follow Up: Kerwin Hugo [Other] - 03/08/25 9:10 am Venous Duplex Ultrasound [Other] - 03/09/25 10:00 am Rasheed Galindo DO [Med Staff - Active Staff] - 03/27/25 10:00 am () Disposition Disposition (needs filled in before D/C Order can be placed): Home Health Service 02/28/25 1445Asia Dodd DO CC: PRISCILLA Almanzar ~ Signed [facility]07-01-2025 Discharge summary [facility] Medical Records Department [address] [place] [address] Discharge Summary 02/28/25 1401 MR#: [id number] Acct: [id number] Name: JEREMIAH VILLA Rep #:[id number] : 1945 79 From: Asia Dodd DO PCP: PRISCILLA Almanzar Status:ADM I N Location: [address] Date of Admission: 02/17/25 Date of Discharge: 02/28/25 Primary Care Physician: PRISCILLA Almanzar Reason For Visit: LEFT HIP FRACTURE Diagnosis Discharge Diagnosis (1) Status post left hip replacement: Status: Acute Code(s): Z96.642 - Presence of left artificial hip joint Plan: Dr. Galindo-02/14/2025 (2) Physical debility: Status: Acute Code(s): R53.81 - Other malaise (3) Acute blood loss as cause of postoperative anemia: Status: Acute Code(s): D62 - Acute posthemorrhagic anemia Plan: Hemoglobin at discharge is stable at 10.4. (4) Acute renal failure superimposed on stage 3 chronic kidney disease: Status: Resolved Code(s): N17.9 - Acute kidney failure, unspecified; N18.30 - Chronic kidney disease, stage 3 unspecified Qualifiers: Acute renal failure type: unspecified Chronic kidney disease stage 3 subtype: stage 3b (GFR 30-44) Qualified Code(s): N17.9 - Acute kidney failure, unspecified; N18.32 - Chronic kidney disease, [id number] Plan: Likely due to dehydration and IV contrast. Creat at DC from rehab is 1.47 (5) Urine retention: Status: Acute Code(s): R33.9 - Retention of urine, unspecified Plan: Resolved with addition of Flomax to drug regimen (6) UTI (urinary tract infection) due to urinary indwelling Tsang catheter: Status: Acute Code(s): T83.511A - Infection and inflammatory reaction due to indwelling urethral catheter, initial encounter; N39.0 - Urinary tract infection, site not specified Qualifiers: Indwelling urinary catheter type: indwelling urethral catheter Encounter type: initial encounter Qualified Code(s): T83.511A - Infection and inflammatory reaction due to indwelling urethral catheter,initial encounter; N39.0 - Urinary tract infection, site not specified Plan: Urine culture still pending at the time of DC from rehab. Tsang has been discontinued prior to DC. (7) DVT of lower limb, acute: Status: Acute Code(s): I82.409 - Acute embolism and thrombosis of unspecified deep veins of unspecifiedlower extremity Qualifiers: Affected thrombotic vein of extremity: calf muscle vein Laterality: left Qualified Code(s): I82.462- Acute embolism and thrombosis of left calf muscular vein Plan: Left gastrocnemius vein. He will continue Eliquis 2.5 mg twice daily and have arepeat venous ultrasound of both lower extremities in 1 week. If there is no propagation would continue Eliquis at 2.5 mg twice daily. If there is propagation then he will need 5 mg twice daily for 3 months. (8) Superficial vein thrombosis: Status: Acute Code(s): I82.890 - Acute embolism and thrombosis of other specified veins Plan: Right great saphenous vein in the calf. (9) Orthostatic hypotension: Status: Resolved Code(s): I95.1 - Orthostatic hypotension Plan: Secondary to intravascular volume depletion. Resolved with increased fluid intake. (10) Sleep-disordered breathing: Status: Chronic Code(s): G47.30 - Sleep apnea, unspecified Plan: Overnight trending pulse ox has been abnormal x 2. Multiple desaturations lasting greater than 60 seconds while sleeping. Refused to wear oxygen most of the time he was on rehab. Literature was givento him on what obstructive sleepapnea is and the possible complications. If he desires could proceed with a formal sleep study. He would not give me an answer on this when we talked on the day of DC . (11) Dehydration: Status: Resolved Code(s): E86.0 - Dehydration Plan: Has to be reminded to maintain good fluid intake. (12) Chronic renal failure (CRF), stage 3b: Status: Chronic Code(s): N18.32 - Chronic kidney disease, stage 3b (13) BPH (benign prostatic hyperplasia): Status: Suspected Code(s): N40.0 - Benign prostatic hyperplasia without lower urinary tract symptoms Qualifiers: Lower urinary tract symptom presence: symptoms present Lower urinary tract symptom detail: urinary retention Qualified Code(s): N40.1 - Benign prostatic hyperplasia with lower urinary tract symptoms;R33.8 - Other retentionof urine Plan: Prostate is enlarged on CT scan of the abdomen. He was given a prescription forFlomax at discharge from rehab. (14) Diabetes mellitus, type 2: Status: Chronic Code(s): E11.9 - Type 2 diabetes mellitus without complications Qualifiers: Diabetes mellitus transcription insulin use: without transcription use Diabetesmellitus complication status: with kidney complications Diabetes mellitus complication detail: with chronic kidney disease Chronic kidney disease stage: stage 3 (moderate) Chronic kidney disease stage 3 subtype: stage 3b (GFR 30-44) Qualified Code(s): E11.22 - Type 2 diabetes mellitus with diabetic chronic kidney disease; N18.32 - Chronic kidney disease, stage 3b Plan: Because he had acute on chronic renal failure and a severely atrophic R kidney glipizide was discontinued as it is renally excreted. He was transitioned to Amaryl because it is excreted by the liver.There is last risk of hypoglycemia in patients with chronic renal failure on Amaryl. At the time ofdischarge she is taking 3 mg of Amaryl in the AM. Blood sugars are all under 200. No hypoglycemia. (15) Renal atrophy, right: Status: Chronic Code(s): N26.1 - Atrophy of kidney (terminal) Plan: Severe (16) Diverticulosis: Status: Chronic Code(s): K57.90 - Diverticulosis of intestine, part unspecified, without perforation or abscess without bleeding Medications at Discharge Home Medications cholecalciferol (vitamin D3) 25 mcg (1,000 unit) tablet (Vitamin D3) 25 mcg PO DAILY SUPPLEMENT 02/07/25 magnesium 250 mg tablet 750 mg PO DAILY SUPPLEMENT 02/07/25 pantoprazole 40 mg tablet,delayed release 40 mg PO BID GERD #0 tabs 02/17/25 acetaminophen 500 mg tablet 1,000 mg (2 x 500 mg) PO Q6H pain #100 tabs 02/27/25 glimepiride 1 mg tablet 3 mg (3 x 1 mg) PO BREAKFAST #90 tabs 02/27/25 lisinopril 5 mg tablet 5 mg PO DAILY #30 tabs 02/27/25 oxycodone 5 mg tablet 5 mg PO Q6H PRN PRN Pain Score 4-10 1 week #15 tabs 02/27/25 tamsulosin 0.4 mg capsule 0.4 mg PO DAILY@0830 Urine retention #30 caps 02/27/25 apixaban 2.5 mg tablet (Eliquis) 2.5 mg PO BID #60 tabs 02/28/25 cefadroxil 500 mg capsule 500 mg PO BID #14 caps 02/28/25 Hospital Course Operations - (Left total hip replacement by Dr. Galindo on 02/14/2025.) Procedures - (Venous ultrasound of the lower extremities on 02/27/2025.) Summary of Care Provided Minutes Spent on Discharge: 35 Hospital Course: JEREMIAH VILLA, is a 79 M with a PMH of DM II, morbid obesity, suspected BPH, osteoarthritis, chronic renal failure (creat on preop labs was 1.59 with a GFR of 44 which is consistent with stage III 3B chronic renal failure), tobacco dependence in remission and a PE after L hip replacement in the past who underwent a right total hip replacement by Dr. Galindo on 02/14/2025. Post operatively he was somnolent and unarousable. ABG showed a pH of 7.15 with a PCO2 of 84 and a PO2 of 94 on BiPAP (later transitioned to AVAPS). Chest x-ray showed a right upper lobe infiltrate. He was given Lasix in PACU. After about an hour on AVAPS he became arousable and the ABG showed pH of 7.27 with a PCO2 of 60 landon pO2 of 83. He was transferred to the intensive care unit. He was started on Unasyn for suspected aspiration PNA. At some point he was reported tohave had a coffee ground emesis. A CT scan of the abdomen with contrast was done and showed a right perihilar/right lower lobe multifocal pulmonary airsp acedisease/consolidation likely representing pneumonia, chronic right renal atrophy, cholelithiasiswithout evidence of acute cholecystitis, small sliding hiatal hernia, colonic diverticulosis with no evidence of diverticulitis, mild prostatomegaly and moderate diffuse spondylosis. There was no evidence of active bleeding. Consult was ordered with GI. An EGD was done on 02/15/2025 andshowed grade C erosive esophagitis with no bleeding. There were no gross lesions in the entire stomach and no gross lesions in the entire examined duodenum. CT scan of the abdomen showed There was evidence of old blood in the nasopharynx and oropharynx. Creatinine on 02/16/2025 had risen to 2.2 and this was thought to be secondary to intravascular volume depletion and IV contrast. He was hydrated and the creatinine came down to 1.92 on 02/17/2025. He has been retaining urine in the hospital. Tsang catheter wasremoved but, PVR on 02/17/25 was 523 and the Tsang was re-inserted. He was started on Flomax. He takes an herbal prostate supplement at home and denies slow stream and dribbling. He was transferred to the acute inpatient rehab unit at [facility] on 02/17/2025 for 3 hours of therapy daily to restore function/independence at ornear his level prior to the recent hip replacement. He lives alone in a one-story house with a basement. He normally ambulates with a rollator walker. He is independent with his activities of daily living. Jeremiah was retaining urine at presentation to acute inpatient rehab. Foleycatheter was inserted andhe was started on Flomax 0.4 mg daily. After 6 doses the catheter was removed for a voiding trial and the most recent postvoid residuals are 21 and 77. Overnight trending pulse ox at admission to rehab was abnormal with 3 desaturations below 88% lasting greater than 60 seconds. He wasplaced on supplemental oxygen when sleeping but is often noncompliant with this. The overnight trending pulse ox was repeated on February 28, 2025 and it showed 6 desaturations below 88 lasting for greater than 60 seconds with a kelly of 72%. The longest episode of desaturation was 2 minutes and 38 seconds. I discussed the results of the overnight trending pulse ox with Jeremiah and he informed me that he does not want to wear oxygen. He was given literature explaining what obstructive sleep apnea is and the possible complications. If he changes in hismind in the future we could proceed with a formal overnight sleep study. Creatinine peaked at 2.2 while in the hospital. He has been taking glipizide 5 mg twice daily as an outpatient and his creatinine on preop labs was 1.59. He chronically is IV depleted because he does not want to get up to use the RR. Since glipizide is excreted renally this was discontinued and he was transitioned to glimepiride 3 mg every morning. Glimepiride is excreted throughthe liver and there is less chance of hypoglycemia with this medication rather than glipizide. Lisinopril was discontinued on the acute side of the hospital postoperatively due to acute on chronic renal failure. Blood pressures were initially high on rehab and the creatinine had improved so lisinopril 5 mg dailywas restarted. At the time of discharge his potassium is 4.6 and the BUN is 31 with a stable creatinine of 1.47. He developed a low grade fever in the eveningon 02/26/2025. Resting heart rate was increased and the blood pressure was low with positive orthostatics. He had no cough and denied dysuria. UA was done and revealed greater than 100 WBCs per high-power field. He was empirically startedon an antibiotic and a urine culture is pending at the time of his discharge. CBC on 02/27/2025 showed a leukocytosis with left shift. He has had lower extremity edema since arrival on rehab and has repeatedly told me that hislegs do not swell at home but I do not believe this. He sits with them depe ndent most of the day. Lower extremity venous ultrasounds were obtained andhe had a DVT in the leftgastrocnemius vein and a superficial thrombosis in the right great saphenous vein distal to the knee. He has been taking Eliquis 2.5 mg twice daily. It is not known at the time of discharge whether this DVT developed while on Eliquis or if he actually had it prior to admission for surgery. We are discharging him on 2.5 mg of Eliquis twice daily and have ordered a repeat bilateral lower extremity ultrasound for 1 week. If the clot remains only in the calf vein would continue 2.5 mg twice daily but if it propagates at all he will need to be increased to 5 mg twice daily of Eliquis for total of 3 months. He denies shortness of breath on the date of discharge. Orthostatic hypotension and tachycardia resolved with hydration. Results of theurine culture still pending at the time of discharge. He is being discharged oncefadroxil 500 mg twice daily. If the urine culture shows resistance to thisantibiotic I will call his nephew Rahul and change the antibiotic. He has only intermittently been cooperative with therapy and he decides when he has had enough. At the time of discharge he is ambulating 200 feet witha 4 wheeled walker at contact-guard assist. He is able to do ten 4 inch and 6 inch steps with bilateral upper extremity support. He is independent with eating and he is supervision/set up for grooming. He requires minimal assistance with bathing and he is supervision/set up with upper body dressing but is still requiring moderate assistance for lower body dressing. He is contact-guard assist for toilet transfer and requires assistance for hygiene. Has been incontinent of urine. He is contact-guard assist for tub/shower transfer. He declined to use adaptive equipment for lower body dressing to improve his independence and tells us that he will have help with all of these tasks at home. Help will not be available 23/03. He has an appointment scheduled with his PCP, Dr. Kerwin Hugo, for March 08 at 10 AM. He has an appointment to obtain a bilateral lower extremity venous ultrasound on 03/09/2025 at 10 AM at [facility]. He will follow-up with Dr. Galindo on 03/27/2025 at 10 AM. The symptoms of a pulmonary embolus were reviewed with Jeremiah prior to dischargeand he was instructed to call 911 and get to an ER if he has any of the symptoms. He has had a pulmonary embolus in thepast with syncope after his right hip was replaced. Physical Exam Const alert, oriented x3 and no apparent distress Constitutional Narrative: Resists getting a shower, even after incontinence. General Appearance: cooperative HEENT HEENT Narrative: Dry MM. No evidence of thrush Eyes PERRL, EOMs intact bilaterally, conjunctivae normal and no scleral icterus Eyes Narrative: No discharge from the eyes and no mattering of the eyelashes. No visual field cuts. No nystagmus. Smooth pursuit. Neck supple, No nodes and no carotid bruits General: trachea midline Chest Chest: symmetrical chest wall rise Resp Resp Narrative: Some coarse crackles in the mid upper right lung posteriorly. No wheezing. Nottachypneic. No conversational dyspnea. Crackles cleared after few deep breaths. Effort and Inspection: able to speak in complete sentences Cardio regular rhythm, no murmurs, no rub and no gallops Cardio Narrative: Increased resting heart rate. No ectopy. GI GI Narrative: Obese, soft, ND, normal BS's, no guarding with palpation. no CVA tenderness Bladder / Kidney Exam: catheter in place urethral (urine in the Tsang bag is dark alber. ) Extremity no calf tenderness Extremity Narrative: Lower extremity edema has improved significantly with compression. Skin Skin Narrative: The incisions are intact with no dehiscence, no dilma-incisional erythema and no discharge. Neuro oriented x3, CN's II-XII intact bilaterally, moves all extremities and no focal motor deficits Psych mental status grossly normal, thought process normal and speech normal; Negativefor denies hallucinations, denies homicidal ideation or denies suicidal ideation Psych Narrative: Only cooperative sometimes. Appearance: grossly normal Attitude: calm, engaged and other Uncooperative and belligerent at times. Activity / Motor Behavior: appropriate eye contact Medical Records Data Homelessness:: Sheltered Weight / BMI Weight Weight: 284 lb 2.813 oz Body Mass Index (BMI) 39.6 ABG / Lab / Microbiology Data 02/27/25 09:54 02/27/25 05:15 Laboratory: Laboratory Results - last 24 hr 02/27/25 16:40: POC Glucose 145 H 02/27/25 17:00: Urine Color Straw, Urine Clarity Cloudy, Urine pH 6.0, Ur Specific [place] 1.010, Urine Protein 30 H, Urine Glucose (UA) Normal, Urine Ketones Negative, Urine Occult Blood 150 H, Urine Nitrite Negative, Urine Bilirubin Negative, Urine Urobilinogen Normal, Ur Leukocyte Esterase 500 H, Urine RBC 0-5 SEEN, Urine WBC >100 SEEN, Ur Squamous Epith Cells 0-5 SEEN, UrineBacteria 1+, Urine Mucus 0 SEEN 02/27/25 22:19: POC Glucose 202 H 02/28/25 06:22: POC Glucose 137 H 02/28/25 11:05: POC Glucose 129 H Microbiology: Microbiology 02/17/25 16:58 Nasal Secretion SARS-CoV-2 Antigen (Rapid) - Final Radiography Diagnostic Testing: Radiology Impression Venous Doppler Study 02/27/25 10:51 Interpretation Summary Acute deep vein thrombosis noted in the left gastrocnemius vein. Acute superficial vein thrombosis noted in the right great saphenous vein below the knee. Ordering Physician: Asia Dodd Referring Physician: Kerwin Hugo Performed By: Jessica Rm, ALEKSANDER, RVT D/C Instructions Discharge Diet: Carb Control Diet and - (Low salt, low fat) Weight Bearing Status: Full weight bearing Keep extremity elevated above heart level: Legs Call your doctor if your incision/area has: Continuous Slow Oozing, Sudden Increased Bleeding, Increased Pain/ Swelling, Increased Redness and Foul Smelling Discharge Call your doctor if you observe: Fever of 101 or Higher, Inability to urinate, Inability to have a bowel movement, Shortness of breath, Dizziness, Fainting spells, Swelling in the ankles, Chest pain,Increased palpitations (irregular heartbeat), Calf discomfort and Uncontrolled pain Suture Line Care: Avoid Pulling/Pushing and Avoid Pinching/Bending Cleanse incision/area with: Soap & Water DC O2, CPAP, BIPAP Needs Home O2 Discharge instructions: No Pending Tests Upon Discharge: none Please Follow Up With: Kerwin Hugo PA When: 7-10 days from DC. Meaningful Use Info Meaningful Use Meaningful Use Diagnoses (Choose all that apply): None applicable Ischemic Stroke Statin Dosing Therapy Reference: STATIN DOSE THERAPY REFERENCE: * Patients > 75 years receive moderate or high dose statin therapy. * Patients 75 years or YOUNGER should receive HIGH intensity statin dose unless contraindicated. You will be required to document reason for non-treatment if statin daily dose does not meet guidelines. HIGH DOSE STATIN THERAPY DAILY Atorvastatin > than or = to 40 mg Rosuvastatin > than or = to 20 mg Amlodipine + Atorvastatin > than or = to 2.5/40 mg Ezetimibe + Simvastatin 10/80 mg Simvastatin 80mg Discharge Plan Admission Admit Date/Time: 02/17/25 15:15 Primary Reason for Your Visit: Debiity due to L THR Attending Provider: Asia Dodd Primary Care Provider: Kerwin Hugo Instructions Patient Instructions: DVT Complications, Understanding Oxygen Therapy, What AreSnoring and Sleep Apnea?, Caring for Your Incision, Benign Prostatic Hyperplasia, ED Sleep Apnea, Obstructive Additional Instructions / Restrictions: 1. You have a urinary tract infection. We sent a culture but, the results willnot be back for 24-48hours after you leave rehab. I am discharging you on an antibiotic called Cefadroxil which you willtake twice a day. If the culture shows a bacteria that is resistant to this antibiotic then we willneed to change the antibiotic. I will call Rahul IF we need to change the antibiotic. 2. You have a blood clot in the calf of the left leg. Generally these do not cause pulmonary emboli(PE) of any significance because the veins distal to the knee are small. We are going to keep you on the prophylactic dose of Eliquis (ablood thinner) for now. There is a chance that the clot will propagate and get bigger and extend into the thigh ans this would mean you would need a higher dose ofthe Eliquis. I am giving you a requisition to have another venous ultrasound of the legs in 1 week.You should call me OR Dr. Hugo 1 day after the test to go over the results with you and makea decision about whether or not the dose of the Eliquis needs to be increased from 2.5 mg to 5 mg. If you have chest pain, shortness of breath, racing heart, dizziness, increasing calf or thigh pain or if you pass put then call 911 and get to an emergency room because these are symptoms of a blood clot to the lung and this can be fatal. 3. Your oxygen drops at night when you are sleeping. You may have sleep apnea. When the oxygen drops you can have problems with the rhythm of the heart. If you decide you would like to be evaluated for sleep apnea you will need a overnight sleep study. You have been refusing to wear the oxygen at night whileon rehab so I am not sending you home with a prescription for oxygen because youwould haveto pay for it and it is expensive, claire if you are not going to wear it. I have give you some literature to read about sleep apnea and all the things it can cause in addition to problems with the rhythm of the heart. 4. You have chronic kidney disease. The CT scan of the abdomen showed the R kidney is severely atrophic......it likely is not very functional. Glipizide isexcreted through the kidney and in people with chronic kidney disease this drug can accumulate due to to poor excretion from the kidneys and lead to low blood sugars. We have changed this medication to Amaryl (glimepiride) which is a diabetic drug that is excreted through the liver. This is a safer drug for you. While you were in the hospitalyou had acute on chronic kidney failure and yourcreatinine (a test of kidney function) went up to 2.2. This has resolved and your creatinine has been stable at 1.34 - 1.47 the last week on rehab. This is consistent with stage III (moderate) chronic renal failure. You may need to follow up with a dough mixer operator (kidney doctor) in the future. Make sure to maintain good hydration. 5. The CT scan of the abdomen also showed your prostate is enlarged. You had urine retention in thehospital and had to have a catheter inserted to drain thebladder. We started you on a drug for the prostate called Flomax (also called tamsulosin) and we were able to get the catheter out. I recommend you continue to take this drug. 6. You are mildly anemic due to blood loss related to surgery. The blood countis stable at discharge from rehab. Your HGB (hemoglobin) is 10.4 at discharge. It was 15.8 prior to surgery. 7. You have many medical problems Jeremiah. You should be seeing your PCP at least every 3 months. 8. If you have any questions after leaving rehab please do not hesitate to callme. OFFICE: [phone] CELL: [phone] NURSES STATION ON REHAB: [phone] Discharge Orders/Prescriptions Prescriptions: New glimepiride 1 mg Tablet 3 mg PO BREAKFAST Qty: 90 0RF Rx Instructions: 3 tabs each morning lisinopril 5 mg Tablet 5 mg PO DAILY Qty: 30 0RF oxycodone 5 mg Tablet 5 mg PO Q6H PRN PRN (Reason: Pain Score 4-10) 7 Days Qty: 15 0RF cefadroxil 500 mg capsule 500 mg PO BID Qty: 14 0RF Eliquis 2.5 mg tablet 2.5 mg PO BID Qty: 60 0RF Rx Instructions: 1 ab every 12 H Continued acetaminophen 500 mg tablet 1,000 mg PO Q6H Qty: 100 0RF tamsulosin 0.4 mg Capsule 0.4 mg PO DAILY@0830 Qty: 30 0RF cholecalciferol (vitamin D3) [Vitamin D3] 25 mcg (1,000 unit) tablet 25 mcg PO DAILY magnesium 250 mg tablet 750 mg PO DAILY pantoprazole 40 mg Tablet,Delayed Release (Dr/Ec) 40 mg PO BID Qty: 0 0RF Discontinued oxycodone 5 mg tablet 5 - 10 mg PO Q4H PRN (Reason: pain) Rx Instructions: 5mg pain 3-5 10mg pain 6-10 vitamin K2 100 mcg capsule 100 mcg PO DAILY Eliquis 2.5 mg tablet 2.5 mg PO BID Qty: 66 0RF gabapentin 300 mg capsule 300 mg PO TID Qty: 90 0RF sennosides-docusate sodium [Stimulant Laxative Plus] 8.6-50 mg Tablet 2 tab PO BID Qty: 0 0RF Other Ambulatory Orders: Venous Duplex US - Jose Luis Extrem (Routine) Facility: [facility] - Location: [facility] Ordered By: Dr. Asia Dodd Referrals / Follow Up: Kerwin Hugo [Other] - 03/08/25 9:10 am Venous Duplex Ultrasound [Other] - 03/09/25 10:00 am Rasheed Galindo DO [Med Staff - Active Staff] - 03/27/25 10:00 am () Disposition Disposition (needs filled in before D/C Order can be placed): Home Health Service Charges/Coding Visit Charges Inpatient E&M: 94046 Disch Hosp >30min 02/28/25 1444 Cosigner Signature (if applicable): CC: Dr. Rasheed Galindo DO; Dr. Asia Dodd DO; PRISCILLA Almanzar~ Signed [facility] Progress note Author Rasheed Pottersincere [facility] Note Date/Time February 28, 2025 7:46a m [facility] Medical Records Department [address] [place] [address] Progress Note - Orthopedic 02/28/25743 MR#: [id number] Acct: [id number] Name: JEREMIAH VILLA Rep #:[id number] : 1945 79 From: Rasheed Galindo DO PCP: PRISCILLA Almanzar Status:ADM I N Location: [place] [address] Subjective Subjective Patient seen and examined. Pain controlled. Says he does not have pain when heis sitting or when he is ambulating it is just the transition that is difficult. No complaints or concerns Objective Data Objective Data Vital Signs: Vital Signs Temp Pulse Resp BP Pulse Ox O2 Del Method O2 Flow Rate 99.3 F H 97 16 141/65 H 96 Room Air 2 02/28/25 06:23 02/28/25 06:23 02/28/25 06:23 02/28/25 06:23 02/28/25 06:23 02/28/25 06:23 02/20/25 01:00 FiO2 21 02/28/25 07:15 Oxygen Flow Rate (L/min) 2 Oxygen Delivery Method Room Air Weight: 284 lb 2.813 oz Body Mass Index (BMI) 39.6 Intake & Output: Intake and Output for Last 24 Hours 02/26/25 02/27/25 02/28/25 23:59 23:59 23:59 Intake Total 825 / 825 1620 / 1620 450 / 450 Output Total 1300 / 1300 1550 / 1770 895 / 895 Balance -475 / -475 70 / -150 -445 / -445 Lab / Micro Data 02/27/25 09:54 02/27/25 05:15 Labs: Laboratory Results - last 24 hr 02/27/25 09:54: WBC 15.3 H, RBC 3.35 L, Hgb 10.4 L, Hct 31.6 L, MCV 94.3 H, MCH 31.0, MCHC 32.9, RDW Std Deviation 46.3 H, RDW Coeff of Sherry 13.4, Plt Count 406,MPV 8.9, Immature Gran % (Auto) 1.000 H, Neut % (Auto) 83.2 H, Lymph % (Auto) 7.5 L, [place] % (Auto) 6.9, Eos % (Auto) 0.9, Baso % (Auto) 0.5, Absolute Neuts (auto) 12.7 H, Absolute Lymphs (auto) 1.15, Nucleated RBC % 0 02/27/25 11:44: POC Glucose 144 H 02/27/25 16:40: POC Glucose 145 H 02/27/25 17:00: Urine Color Straw, Urine Clarity Cloudy, Urine pH 6.0, Ur Specific [place] 1.010, Urine Protein 30 H, Urine Glucose (UA) Normal, Urine Ketones Negative, Urine Occult Blood 150 H, Urine Nitrite Negative, Urine Bilirubin Negative, Urine Urobilinogen Normal, Ur Leukocyte Esterase 500 H, Urine RBC 0-5 SEEN, Urine WBC >100 SEEN, Ur Squamous Epith Cells 0-5 SEEN, UrineBacteria 1+, Urine Mucus 0 SEEN 02/27/25 22:19: POC Glucose 202 H 02/28/25 06:22: POC Glucose 137 H Micro: Microbiology 02/17/25 16:58 Nasal Secretion SARS-CoV-2 Antigen (Rapid) - Final Social Homelessness:: Sheltered Physical Exam Const alert, oriented x3 and no apparent distress Extremity Extremity Narrative: Left hip incisions well-approximated no signs of infection Neurovascular intact left lower extremity he does have swelling in his left leg below his knee no significant calf tenderness negative Homans neurovascular intact EHL tibialis anterior gastrocsoleus intact station light touch palpable pedal pulse. 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 Reminded the patient to elevate his legs to minimize swelling Will try to fit a knee-high stocking to help with swelling Milagros to be removed today Follow-up in the office 4 weeks 02/28/25 0746 <Electronically signed by Rasheed Galindo DO> Cosigner Signature (if applicable): CC: ~ Signed [facility] Work Phone: 1(300) 725-376107-01-2025 Progress note [facility] Medical Records Department [address] [place] [address] Progress Note - Orthopedic 02/28/25 0744 MR#: [id number] Acct: [id number] Name: JEREMIAH VILLA Rep #:[id number] : 1945 79 From: Rasheed Galindo DO PCP: PRISCILLA Almanzar Status:ADM I N Location: [place] [address] Subjective Subjective Patient seen and examined. Pain controlled. Says he does not have pain when heis sitting or when heis ambulating it is just the transition that is difficult. No complaints or concerns Objective Data Objective Data Vital Signs: Vital Signs Temp Pulse Resp BP Pulse Ox O2 Del Method O2 Flow Rate 99.3 F H 97 16 141/65 H 96 Room Air 2 02/28/25 06:23 02/28/25 06:23 02/28/25 06:23 02/28/25 06:23 02/28/25 06:23 02/28/25 06:23 02/20/25 01:00 FiO2 21 02/28/25 07:15 Oxygen Flow Rate (L/min) 2 Oxygen Delivery Method Room Air Weight: 284 lb 2.813 oz Body Mass Index (BMI) 39.6 Intake & Output: Intake and Output for Last 24 Hours 02/26/25 02/27/25 02/28/25 23:59 23:59 23:59 Intake Total 825 / 825 1620 / 1620 450 / 450 Output Total 1300 / 1300 1550 / 1770 895 / 895 Balance -475 / -475 70 / -150 -445 / -445 Lab / Micro Data 02/27/25 09:54 02/27/25 05:15 Labs: Laboratory Results - last 24 hr 02/27/25 09:54: WBC 15.3 H, RBC 3.35 L, Hgb 10.4 L, Hct 31.6 L, MCV 94.3 H, MCH 31.0, MCHC 32.9, RDW Std Deviation 46.3 H, RDW Coeff of Sherry 13.4, Plt Count 406,MPV 8.9, Immature Gran % (Auto) 1.000 H, Neut % (Auto) 83.2 H, Lymph % (Auto) 7.5 L, [place] % (Auto) 6.9, Eos % (Auto) 0.9, Baso % (Auto) 0.5, Absolute Neuts (auto) 12.7 H, Absolute Lymphs (auto) 1.15, Nucleated RBC % 0 02/27/25 11:44: POC Glucose 144 H 02/27/25 16:40: POC Glucose 145 H 02/27/25 17:00: Urine Color Straw, Urine Clarity Cloudy, Urine pH 6.0, Ur Specific [place] 1.010, Urine Protein 30 H, Urine Glucose (UA) Normal, Urine Ketones Negative, Urine Occult Blood 150 H, Urine Nitrite Negative, Urine Bilirubin Negative, Urine Urobilinogen Normal, Ur Leukocyte Esterase 500 H, Urine RBC 0-5 SEEN, Urine WBC >100 SEEN, Ur Squamous Epith Cells 0-5 SEEN, UrineBacteria 1+, Urine Mucus 0 SEEN 02/27/25 22:19: POC Glucose 202 H 02/28/25 06:22: POC Glucose 137 H Micro: Microbiology 02/17/25 16:58 Nasal Secretion SARS-CoV-2 Antigen (Rapid) - Final Social Homelessness:: Sheltered Physical Exam Const alert, oriented x3 and no apparent distress Extremity Extremity Narrative: Left hip incisions well-approximated no signs of infection Neurovascular intact left lower extremity he does have swelling in his left leg below his knee no significant calf tenderness negative Homans neurovascular intact EHL tibialis anterior gastrocsoleus intact station light touch palpable pedal pulse. 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 Reminded the patient to elevate his legs to minimize swelling Will try to fit a knee-high stocking to help with swelling Milagros to be removed today Follow-up in the office 4 weeks 02/28/25 0746 Cosigner Signature (if applicable): CC: ~ Signed [facility]06-30-2025 Progress note Author Asia Alcalawillian [facility] Note Date/Time February 27, 2025 11:0 0am [facility] Medical Records Department [address] [place] [address] Progress Note 02/27/25 0936 MR#: [id number] Acct: [id number] Name: JEREMIAH VILLA Rep #:[id number] : 1945 79 From: Asia Dodd DO PCP: PRISCILLA Almanzar Status:ADM I N Location: [place] [address] Subjective Subjective Afebrile - temp today is 99.6...he is getting Tylenol 1 MG q8H VSS - orthostatics are + today. Maintaining appropriate oxygen saturation on RA-97 to 99% Oral intake - FOOD FLUIDS poor Discussed with nursing - no problems that need addressed Reviewed the THERAPY notes Medication list reviewed. Hemoglobin is stable at 10.3. Sodium is 136 and the potassium is 4.6 today. The BUN is 31 and the creatinine is 1.47 which is less than it was on 02/03/2025 on preop labs. It was 1.59. Jeremiah denies lightheadedness, chest pain, cough, shortness of breath, palpitations, nausea/vomiting/abdominal pain, dysuria and calf tenderness. He is only taking Tylenol for pain control. Objective Data Objective Data Vital Signs: Vital Signs Temp Pulse Resp BP Pulse Ox O2 Del Method O2 Flow Rate 99.6 F H 108 H 18 122/52 H 97 Room Air 2 02/27/25 06:20 02/27/25 08:56 02/27/25 06:20 02/27/25 08:56 02/27/25 06:20 02/27/25 06:20 02/20/25 01:00 FiO2 21 02/17/25 22:01 Oxygen Flow Rate (L/min) 2 Oxygen Delivery Method Room Air Weight: 284 lb 2.813 oz Body Mass Index (BMI) 39.6 Intake & Output: Intake and Output for Last 24 Hours 02/25/25 02/26/25 02/27/25 23:59 23:59 23:59 Intake Total 1310 / 1310 825 / 825 540 / 540 Output Total 700 / 700 1300 / 1300 175 / 175 Balance 610 / 610 -475 / -475 365 / 365 Lab / Micro Data 02/27/25 09:54 02/27/25 05:15 Labs: Laboratory Results - last 24 hr 02/26/25 11:32: POC Glucose 136 H 02/26/25 17:01: POC Glucose 166 H 02/26/25 20:55: POC Glucose 184 H 02/27/25 05:15: Hgb 10.3 L, Hct 31.2 L, Sodium 136, Potassium 4.6, Chloride 102,Carbon Dioxide 24.2, Anion Gap 10, BUN 31 H, Creatinine 1.47 H, Estim Creat Clear Calc 56.67, Est GFR (MDRD) Non-Af 49 L, BUN/Creatinine Ratio 20.9 H, Glucose 169 H, Calcium 9.1 02/27/25 05:46: POC Glucose 168 H Micro: Microbiology 02/17/25 16:58 Nasal Secretion SARS-CoV-2 Antigen (Rapid) - Final Social Homelessness:: Sheltered Physical Exam Const alert, oriented x3 and no apparent distress Constitutional Narrative: Sitting in the recliner at the bedside with his legs mostly dependent. HEENT Mouth: dry mucous membranes Resp normal respiratory effort and clear to auscultation bilaterally Resp Narrative: No conversational dyspnea Effort and Inspection: Negative for tachypneic Cardio regular rhythm Cardio Narrative: Resting heart rate is elevated and with standing the heart rate went to 114. GI normal to inspection, nondistended, normoactive bowel sounds, soft to palpation and non-tender GI Narrative: Denies constipation. Extremity no calf tenderness Extremity Narrative: edema of the LE's is better.....ELLY hose are in place. No pain with compressionof the calf. Skin Skin Narrative: Nursing tells me that the incision is intact with no erythema or purulent DC. Will examine when the milagros are removed today. Assessment & Plan Assessment/Plan (1) Physical debility: (2) Status post left hip replacement: (3) Acute blood loss as cause of postoperative anemia: (4) Erosive esophagitis: (5) Aspiration pneumonia: QUALIFIERS: Aspiration pneumonia type: due to gastric secretions Laterality: right Lung location: unspecified part of lung Qualified Code(s): J69.0 - Pneumonitis due to inhalation of food and vomit (6) Urine retention: (7) BPH (benign prostatic hyperplasia): QUALIFIERS: Lower urinary tract symptom presence: symptoms present Lower urinary tract symptom detail: urinary retention Qualified Code(s): N40.1- Benign prostatic hyperplasia with lower urinary tract symptoms; R33.8 - Other retention of urine (8) Enlarged prostate: (9) Diabetes mellitus, type 2: QUALIFIERS: Diabetes mellitus transcription insulin use: without transcription use Diabetes mellitus complication status: with kidney complications Diabetes mellitus complication detail: with chronic kidney disease Chronic kidney disease stage: stage 3 (moderate) Chronic kidney disease stage 3 subtype: stage 3b (GFR 30-44) Qualified Code(s): E11.22 - Type 2 diabetes mellitus with diabetic chronic kidney disease; N18.32 - Chronic kidney disease, stage 3b (10) Chronic renal failure (CRF), stage 3b: (11) Hiatal hernia with GERD: (12) Morbid obesity: (13) KATHERINE (obstructive sleep apnea): (14) Orthostatic hypotension: (15) Pulmonary embolism: QUALIFIERS: Pulmonary embolism type: unspecified Chronicity: unspecified Acute cor pulmonale presence: unspecified Qualified Code(s): I26.99- Other pulmonary embolism without acute cor pulmonale (16) Neutrophilic leukocytosis: PLAN: Plan 1. Continue therapy 2. Check UA 3. CBC with differential now 4. Stop Tylenol 5. He was encouraged to increase his fluid intake due to orthostasis. 6. He has been drinking water today........will recheck the orthostatics later today.......worried the low BP and increased HR with a low grade fever may be due to VTE. He had a large PE after R hip replacement in the past.........he had lightheadedness and increased HR prior to the syncopal event that got him tothe ED. D- dimer may still be elevated from the surgery. Will order venous US's of the LE's Charges/Coding Visit Charges Inpatient E&M: 92554 Subs Hosp L2 02/27/25 1100 <Electronically signed by Asia Dodd DO> Asia Dodd DO Cosigner Signature (if applicable): CC: ~ Signed [facility] Work Phone: 1(361) 422-855406-30-2025 Progress note [facility] Medical Records Department [address] [facility] [place] [address] Progress Note 02/27/25 0936 MR#: [id number] Acct: [id number] Name: JEREMIAH VILLA Rep #:[id number] : 1945 79 From: Asia Dodd DO PCP: PRISCILLA Almanzar Status:ADM I N Location: [place] [address] Subjective Subjective Afebrile - temp today is 99.6...he is getting Tylenol 1 MG q8H VSS - orthostatics are + today. Maintaining appropriate oxygen saturation on RA-97 to 99% Oral intake - FOOD FLUIDS poor Discussed with nursing - no problems that need addressed Reviewed the THERAPY notes Medication list reviewed. Hemoglobin is stable at 10.3. Sodium is 136 and the potassium is 4.6 today. The BUN is 31 and the creatinine is 1.47 which is less than it was on 02/03/2025 on preop labs. It was 1.59. Jeremiah denies lightheadedness, chest pain, cough, shortness of breath, palpitations, nausea/vomiting/abdominal pain, dysuria and calf tenderness. He is only taking Tylenol for pain control. Objective Data Objective Data Vital Signs: Vital Signs Temp Pulse Resp BP Pulse Ox O2 Del Method O2 Flow Rate 99.6 F H 108 H 18 122/52 H 97 Room Air 2 02/27/25 06:20 02/27/25 08:56 02/27/25 06:20 02/27/25 08:56 02/27/25 06:20 02/27/25 06:20 02/20/25 01:00 FiO2 21 02/17/25 22:01 Oxygen Flow Rate (L/min) 2 Oxygen Delivery Method Room Air Weight: 284 lb 2.813 oz Body Mass Index (BMI) 39.6 Intake & Output: Intake and Output for Last 24 Hours 02/25/25 02/26/25 02/27/25 23:59 23:59 23:59 Intake Total 1310 / 1310 825 / 825 540 / 540 Output Total 700 / 700 1300 / 1300 175 / 175 Balance 610 / 610 -475 / -475 365 / 365 Lab / Micro Data 02/27/25 09:54 02/27/25 05:15 Labs: Laboratory Results - last 24 hr 02/26/25 11:32: POC Glucose 136 H 02/26/25 17:01: POC Glucose 166 H 02/26/25 20:55: POC Glucose 184 H 02/27/25 05:15: Hgb 10.3 L, Hct 31.2 L, Sodium 136, Potassium 4.6, Chloride 102,Carbon Dioxide 24.2, Anion Gap 10, BUN 31 H, Creatinine 1.47 H, Estim Creat Clear Calc 56.67, Est GFR (MDRD) Non-Af 49 L, BUN/Creatinine Ratio 20.9 H, Glucose 169 H, Calcium 9.1 02/27/25 05:46: POC Glucose 168 H Micro: Microbiology 02/17/25 16:58 Nasal Secretion SARS-CoV-2 Antigen (Rapid) - Final Social Homelessness:: Sheltered Physical Exam Const alert, oriented x3 and no apparent distress Constitutional Narrative: Sitting in the recliner at the bedside with his legs mostly dependent. HEENT Mouth: dry mucous membranes Resp normal respiratory effort and clear to auscultation bilaterally Resp Narrative: No conversational dyspnea Effort and Inspection: Negative for tachypneic Cardio regular rhythm Cardio Narrative: Resting heart rate is elevated and with standing the heart rate went to 114. GI normal to inspection, nondistended, normoactive bowel sounds, soft to palpation and non-tender GI Narrative: Denies constipation. Extremity no calf tenderness Extremity Narrative: edema of the LE's is better.....ELLY hose are in place. No pain with compressionof the calf. Skin Skin Narrative: Nursing tells me that the incision is intact with no erythema or purulent DC. Will examine when thestaples are removed today. Assessment & Plan Assessment/Plan (1) Physical debility: (2) Status post left hip replacement: (3) Acute blood loss as cause of postoperative anemia: (4) Erosive esophagitis: (5) Aspiration pneumonia: QUALIFIERS: Aspiration pneumonia type: due to gastric secretions Laterality: right Lung location: unspecified part of lung Qualified Code(s): J69.0 - Pneumonitis due to inhalation of food and vomit (6) Urine retention: (7) BPH (benign prostatic hyperplasia): QUALIFIERS: Lower urinary tract symptom presence: symptoms present Lower urinary tract symptom detail: urinary retention Qualified Code(s): N40.1- Benign prostatic hyperplasia with lower urinary tract symptoms; R33.8 - Other retention of urine (8) Enlarged prostate: (9) Diabetes mellitus, type 2: QUALIFIERS: Diabetes mellitus transcription insulin use: without transcription use Diabetes mellitus complication status: with kidney complications Diabetes mellitus complication detail: with chronic kidney disease Chronic kidney disease stage: stage 3 (moderate) Chronic kidney disease stage 3 subtype: stage 3b (GFR 30-44) Qualified Code(s): E11.22 - Type 2 diabetes mellitus with diabetic chronic kidney disease; N18.32 - Chronic kidney disease, stage 3b (10) Chronic renal failure (CRF), stage 3b: (11) Hiatal hernia with GERD: (12) Morbid obesity: (13) KATHERINE (obstructive sleep apnea): (14) Orthostatic hypotension: (15) Pulmonary embolism: QUALIFIERS: Pulmonary embolism type: unspecified Chronicity: unspecified Acute cor pulmonale presence: unspecified Qualified Code(s): I26.99- Other pulmonary embolism without acute cor pulmonale (16) Neutrophilic leukocytosis: PLAN: Plan 1. Continue therapy 2. Check UA 3. CBC with differential now 4. Stop Tylenol 5. He was encouraged to increase his fluid intake due to orthostasis. 6. He has been drinking water today........will recheck the orthostatics later today.......worried the low BP and increased HR with a low grade fever may be due to VTE. He had a large PE after R hip replacement in the past.........he had lightheadedness and increased HR prior to the syncopal event that got him tot ED. D- dimer may still be elevated from the surgery. Will order venous US's of the LE's Charges/Coding Visit Charges Inpatient E&M: 55216 Subs Hosp L2 02/27/25 1100 Asia Dodd DO Cosign Signature (if applicable): CC: ~ Signed [facility]06[facility]30-20[facility] Progress note Author Asia Alcalawillian [facility] Note Date/Time February 25, 2025 12:1 4pm [facility] Medical Records Department [address] [place] [address] Progress Note 02/24/25 0955 MR#: [id number] Acct: [id number] Name: JEREMIAH VILLA Rep #:[id number] : 1945 79 From: Asia Dodd DO PCP: PRISCILLA Almanzar Status:ADM I N Location: [place] [address] Subjective Subjective Afebrile Vital signs stable. Has been compliant with senna and Miralax. Had to have laxatives 3 X's this week. Had 1 BM on the and 1 yesterday. He had 2 postvoid residuals done yesterday 1 was 205 and the next was 77. All lab from this morning was personally reviewed. White blood cell count is normal at 10.8. Hemoglobin is 10.5, down from 11.1 on 02/18/2025 but he is better hydrated. Platelets are within normal limits. Sodium is 137 and the potassium is 4.6. BUN is 34 with a creatinine of 1.39 today which is within hisbaseline. Denies pain and is no longer taking Oxycodone. Denies calf pain, CP, SOB, cough, abd pain. Objective Data Objective Data Vital Signs: Vital Signs Temp Pulse Resp BP Pulse Ox O2 Del Method O2 Flow Rate 97.8 F 102 H 16 151/70 H 95 Room Air 2 02/24/25 06:00 02/24/25 06:00 02/24/25 06:00 02/24/25 06:00 02/24/25 06:00 02/24/25 06:00 02/20/25 01:00 FiO2 21 02/17/25 22:01 Oxygen Flow Rate (L/min) 2 Oxygen Delivery Method Room Air Weight: 284 lb 2.813 oz Body Mass Index (BMI) 39.6 Intake & Output: Intake and Output for Last 24 Hours 02/22/25 02/23/25 02/24/25 23:59 23:59 23:59 Intake Total 1160 / 1160 1860 / 1860 240 / 240 Output Total 1550 / 2150 2250 / 2250 900 / 900 Balance -390 / -990 -390 / -390 -660 / -660 Lab / Micro Data 02/24/25 05:32 02/24/25 05:32 Labs: Laboratory Results - last 24 hr 02/23/25 11:34: POC Glucose 144 H 02/23/25 16:29: POC Glucose 183 H 02/23/25 21:08: POC Glucose 170 H 02/24/25 05:32: WBC 10.8, RBC 3.38 L, Hgb 10.5 L, Hct 31.4 L, MCV 92.9, MCH 31.1, MCHC 33.4, RDW Std Deviation 45.7 H, RDW Coeff of Sherry 13.4, Plt Count 356,MPV 9.0, Sodium 137, Potassium 4.6, Chloride 104, Carbon Dioxide 24.8, Anion Gap8, BUN 34 H, Creatinine 1.39 H, Estim Creat Clear Calc 59.93, Est GFR (MDRD) Non-Af 52 L, BUN/Creatinine Ratio 24.7 H, Glucose 164 H, Calcium 9.1 02/24/25 05:45: POC Glucose 164 H Micro: Microbiology 02/17/25 16:58 Nasal Secretion SARS-CoV-2 Antigen (Rapid) - Final Social Homelessness:: Sheltered Physical Exam Const alert, oriented x3 and no apparent distress Constitutional Narrative: sitting in the recliner. Cooperative with therapy to a degree.......Does not want to do 3 hours of therapy daily and will tell them he is done. He picks andchooses what he wants to do. Resp normal respiratory effort and clear to auscultation bilaterally Resp Narrative: No conversational dyspnea. Breath sounds are somewhat diminished, most likely secondary to body habitus. Effort and Inspection: Negative for tachypneic Cardio regular rate, regular rhythm and no gallops Cardio Narrative: No ectopy GI normal to inspection, nondistended, normoactive bowel sounds, soft to palpation and non-tender GI Narrative: No guarding with palpation Extremity no calf tenderness General Extremity: edema bilateral (This has improved with compression applied to the lower extremities.) lower extremity Skin Rashes: no rashes Wound Narrative: The incision is intact with no dehiscence, dilma-incisional erythema or purulent discharge. Assessment & Plan Assessment/Plan (1) Physical debility: (2) Status post left hip replacement: (3) Acute blood loss as cause of postoperative anemia: (4) Erosive esophagitis: (5) Aspiration pneumonia: QUALIFIERS: Aspiration pneumonia type: due to gastric secretions Laterality: right Lung location: unspecified part of lung Qualified Code(s): J69.0 - Pneumonitis due to inhalation of food and vomit PLAN: RUL (6) Urine retention: PLAN: Improved with Flomax. (7) BPH (benign prostatic hyperplasia): QUALIFIERS: Lower urinary tract symptom detail: urinary retention Lower urinary tract symptom presence: symptoms present Qualified Code(s): N40.1- Benign prostatic hyperplasia with lower urinary tract symptoms; R33.8 - Other retention of urine (8) Enlarged prostate: (9) Diabetes mellitus, type 2: QUALIFIERS: Chronic kidney disease stage: stage 3 (moderate) Chronic kidney disease stage 3 subtype: stage 3b (GFR 30-44) Diabetes mellitus complication detail: with chronic kidney disease Diabetes mellitus complicationstatus: with kidney complications Diabetes mellitus [facility] insulin use: without [facility] use Qualified Code(s): E11.22 - Type 2 diabetes mellitus with diabetic chronic kidney disease; N18.32 - Chronic kidney disease, stage 3b (10) Chronic renal failure (CRF), stage 3b: (11) Hiatal hernia with GERD: (12) Morbid obesity: PLAN: weight loss encouraged. (13) KATHERINE (obstructive sleep apnea): PLAN: repeat an overnight trending pulse ox prior to DC. PLAN: Plan 1. Continue therapy 2. Increase MiraLAX to twice daily 3. Continue Amaryl 2 mg daily.... This is likely safer for him the Glipizide since he has chronic renal failure. He does not routinely drink enough water and unless strongly encouraged. Baseline creatinine is reportedly around 1.3 however it was 1.59 as an outpatient on 02/03/2025. GFR on that date was consistent with stage IIIb chronic renal failure. This may be multifactorial. due to IV volume depletion and possible chronic urine retention due to enlarged prostate. 52 which is consistent with stage IIIa chronic renal failure. 4. Continue lisinopril but, will need to follow potassium in light of CRF. It was just recently restarted.....it was discontinued in the hospital for acute onchronic renal failure. 5. Recheck a BMP on Thursday and a . 6. Continue Flomax. I suspect he will go back to using the prostate supplementhe was taking at home when he is discharged........ 7. Continue Eliquis for 28 days post op and then DC. 8. Avoid nephrotoxic agents going forward. 9. CXR prior to DC.......if the abnormality is still present in the RUL will recommend a CT chest as OP. 10. DC gabapentin. Charges/Coding Visit Charges Inpatient E&M: 90860 Subs Hosp L1 02/25/25 1214 <Electronically signed by Asia Dodd DO> Asia Dodd DO Cosigner Signature (if applicable): CC: ~ Signed [facility] Work Phone: 1(295) 298-462906-28-2025 Progress note [facility] Medical Records Department [address] [place] [address] Progress Note 02/24/25 0955 MR#: [id number] Acct: [id number] Name: JEREMIAH VILLA Rep #:[id number] : 1945 79 From: Asia Dodd DO PCP: Luke Oanh, PA Status:ADM I N Location: CR153-1 Subjective Subjective Afebrile Vital signs stable. Has been compliant with senna and Miralax. Had to have laxatives 3 X's this week. Had 1 BM on the and 1 yesterday. He had 2 postvoid residuals done yesterday 1 was 205 and the next was 77. All lab from this morning was personally reviewed. White blood cell count is normal at 10.8. Hemoglobin is 10.5, down from 11.1 on 02/18/2025 but he is better hydrated. Platelets are within normal limits. Sodium is 137 and the potassium is 4.6. BUN is 34 with a creatinine of 1.39 today which is within hisbaseline. Denies pain and is no longer taking Oxycodone. Denies calf pain, CP, SOB, cough, abd pain. Objective Data Objective Data Vital Signs: Vital Signs Temp Pulse Resp BP Pulse Ox O2 Del Method O2 Flow Rate 97.8 F 102 H 16 151/70 H 95 Room Air 2 02/24/25 06:00 02/24/25 06:00 02/24/25 06:00 02/24/25 06:00 02/24/25 06:00 02/24/25 06:00 02/20/25 01:00 FiO2 21 02/17/25 22:01 Oxygen Flow Rate (L/min) 2 Oxygen Delivery Method Room Air Weight: 284 lb 2.813 oz Body Mass Index (BMI) 39.6 Intake & Output: Intake and Output for Last 24 Hours 02/22/25 02/23/25 02/24/25 23:59 23:59 23:59 Intake Total 1160 / 1160 1860 / 1860 240 / 240 Output Total 1550 / 2150 2250 / 2250 900 / 900 Balance -390 / -990 -390 / -390 -660 / -660 Lab / Micro Data 02/24/25 05:32 02/24/25 05:32 Labs: Laboratory Results - last 24 hr 02/23/25 11:34: POC Glucose 144 H 02/23/25 16:29: POC Glucose 183 H 02/23/25 21:08: POC Glucose 170 H 02/24/25 05:32: WBC 10.8, RBC 3.38 L, Hgb 10.5 L, Hct 31.4 L, MCV 92.9, MCH 31.1, MCHC 33.4, RDW Std Deviation 45.7 H, RDW Coeff of Sherry 13.4, Plt Count 356,MPV 9.0, Sodium 137, Potassium 4.6, Chloride 104, Carbon Dioxide 24.8, Anion Gap8, BUN 34 H, Creatinine 1.39 H, Estim Creat Clear Calc 59.93, Est GFR (MDRD) Non-Af 52 L, BUN/Creatinine Ratio 24.7 H, Glucose 164 H, Calcium 9.1 02/24/25 05:45: POC Glucose 164 H Micro: Microbiology 02/17/25 16:58 Nasal Secretion SARS-CoV-2 Antigen (Rapid) - Final Social Homelessness:: Sheltered Physical Exam Const alert, oriented x3 and no apparent distress Constitutional Narrative: sitting in the recliner. Cooperative with therapy to a degree.......Does not want to do 3 hours of therapy daily and will tell them he is done. He picks andchooses what he wants to do. Resp normal respiratory effort and clear to auscultation bilaterally Resp Narrative: No conversational dyspnea. Breath sounds are somewhat diminished, most likely secondary to body habitus. Effort and Inspection: Negative for tachypneic Cardio regular rate, regular rhythm and no gallops Cardio Narrative: No ectopy GI normal to inspection, nondistended, normoactive bowel sounds, soft to palpation and non-tender GI Narrative: No guarding with palpation Extremity no calf tenderness General Extremity: edema bilateral (This has improved with compression applied to the lower extremities.) lower extremity Skin Rashes: no rashes Wound Narrative: The incision is intact with no dehiscence, dilma-incisional erythema or purulent discharge. Assessment & Plan Assessment/Plan (1) Physical debility: (2) Status post left hip replacement: (3) Acute blood loss as cause of postoperative anemia: (4) Erosive esophagitis: (5) Aspiration pneumonia: QUALIFIERS: Aspiration pneumonia type: due to gastric secretions Laterality: right Lung location: unspecified part of lung Qualified Code(s): J69.0 - Pneumonitis due to inhalation of food and vomit PLAN: RUL (6) Urine retention: PLAN: Improved with Flomax. (7) BPH (benign prostatic hyperplasia): QUALIFIERS: Lower urinary tract symptom detail: urinary retention Lower urinary tract symptom presence: symptoms present Qualified Code(s): N40.1- Benign prostatic hyperplasia with lower urinary tract symptoms; R33.8 - Other retention of urine (8) Enlarged prostate: (9) Diabetes mellitus, type 2: QUALIFIERS: Chronic kidney disease stage: stage 3 (moderate) Chronic kidney disease stage 3 subtype: stage 3b (GFR 30-44) Diabetes mellitus complication detail: with chronic kidney disease Diabetes mellitus complicationstatus: with kidney complications Diabetes mellitus [facility] [facility] insulin use: without [place] [facility] use Qualified Code(s): E11.22 - Type 2 diabetes mellitus with diabetic chronic kidney disease; N18.32 - Chronic kidney disease, stage 3b (10) Chronic renal failure (CRF), stage 3b: (11) Hiatal hernia with GERD: (12) Morbid obesity: PLAN: weight loss encouraged. (13) KATHERINE (obstructive sleep apnea): PLAN: repeat an overnight trending pulse ox prior to DC. PLAN: Plan 1. Continue therapy 2. Increase MiraLAX to twice daily 3. Continue Amaryl 2 mg daily.... This is likely safer for him the Glipizide since he has chronic renal failure. He does not routinely drink enough water and unless strongly encouraged. Baseline creatinine is reportedly around 1.3 however it was 1.59 as an outpatient on 02/03/2025. GFR on that date was consistent with stage IIIb chronic renal failure. This may be multifactorial. due to IV volume depletion and possible chronic urine retention due to enlarged prostate. 52 which is consistent with stage IIIa chronic renal failure. 4. Continue lisinopril but, will need to follow potassium in light of CRF. It was just recently restarted.....it was discontinued in the hospital for acute onchronic renal failure. 5. Recheck a BMP on Thursday and a . 6. Continue Flomax. I suspect he will go back to using the prostate supplementhe was taking at homewhen he is discharged........ 7. Continue Eliquis for 28 days post op and then DC. 8. Avoid nephrotoxic agents going forward. 9. CXR prior to DC.......if the abnormality is still present in the RUL will recommend a CT chest as OP. 10. DC gabapentin. Charges/Coding Visit Charges Inpatient E&M: 95377 [facility] Hosp L1 02/25/25 1211 Asia Dodd DO Cosigner Signature (if applicable): CC: ~ Signed [facility]06-27-2025 Progress note Author Asia Dodd [facility] Note Date/Time February 24, 2025 9:55 am [facility] Medical Records Department [address] [place] [address] Progress Note 02/23/25924 MR#: [id number] Acct: [id number] Name: JEREMIAH VILLA Rep #:[id number] : 1945 79 From: Asia Dodd DO PCP: PRISCILLA Almanzar Status:ADM I N Location: [place] [address] Subjective Subjective Jeremiah was seen on team rounds today. His nephew, Rahul, who is his POA was present in the room. All questions were answered. Afebrile VSS -last 4 blood pressures have been better and the blood pressure this morningis 121/48. Lisinopril was restarted yesterday. It had been discontinued in thehospital for acute on chronic renal failure. Heart rate has ranged from 81-90 over the past 24 hours. Maintaining appropriate oxygen saturation on RA Oral intake - FOOD good FLUIDS he had 1160 in yesterday and 1550 out for fluid balance of -390. Overnight he had 120 in and 1350 for a fluid balance of -1230. He had a BM yesterday after Dulcolax tabs. Was given a Dulcolax suppository today and it was effective. Discussed with nursing - no problems that need addressed Reviewed the THERAPY notes - Not wanting to complete the 3 hours of therapy daily and giving the therapists a hard time when they are trying to encourage him. Medication list reviewed. Tells me his pain is better and his Oxycodone need has significantly decreased. Gaapentin has been weaned down. Minus chest pain, shortness of breath, cough, palpitations, calf pain. Argumentative. Objective Data Objective Data Vital Signs: Vital Signs Temp Pulse Resp BP Pulse Ox O2 Del Method O2 Flow Rate 97.9 F 90 16 121/48 H 99 Room Air 2 02/23/25 06:00 02/23/25 06:00 02/23/25 06:00 02/23/25 06:00 02/23/25 06:00 02/23/25 06:00 02/20/25 01:00 FiO2 21 02/17/25 22:01 Oxygen Flow Rate (L/min) 2 Oxygen Delivery Method Room Air Weight: 284 lb 2.813 oz Body Mass Index (BMI) 39.6 Intake & Output: Intake and Output for Last 24 Hours 02/21/25 02/22/25 02/23/25 23:59 23:59 23:59 Intake Total 1490 / 1490 1160 / 1160 120 / 120 Output Total 1130 / 1130 1550 / 2150 1350 / 1350 Balance 360 / 360 -390 / -990 -1230 / -1230 Lab / Micro Data 02/24/25 05:32 02/24/25 05:32 Labs: Laboratory Results - last 24 hr 02/22/25 11:06: POC Glucose 165 H 02/22/25 16:03: POC Glucose 158 H 02/22/25 21:22: POC Glucose 145 H 02/23/25 06:27: POC Glucose 155 H Micro: Microbiology 02/17/25 16:58 Nasal Secretion SARS-CoV-2 Antigen (Rapid) - Final Social Homelessness:: Sheltered Physical Exam Const alert, oriented x3 and no apparent distress Constitutional Narrative: Sitting in the recliner at the bedside with his legs once again dependent. Resp normal respiratory effort and clear to auscultation bilaterally Resp Narrative: No conversational dyspnea Effort and Inspection: Negative for tachypneic Cardio regular rate, regular rhythm and no gallops Cardio Narrative: No ectopy GI normal to inspection, nondistended, normoactive bowel sounds Extremity no calf tenderness Extremity Narrative: Edema in the feet and lower extremities has decreased since admission to rehab. Florence wraps and ELLY hose are in place. Skin Rashes: no rashes Assessment & Plan Assessment/Plan (1) Physical debility: (2) Status post left hip replacement: (3) Acute blood loss as cause of postoperative anemia: (4) Erosive esophagitis: (5) Aspiration pneumonia: QUALIFIERS: Aspiration pneumonia type: due to gastric secretions Laterality: right Lung location: unspecified part of lung Qualified Code(s): J69.0 - Pneumonitis due to inhalation of food and vomit (6) Urine retention: (7) BPH (benign prostatic hyperplasia): QUALIFIERS: Lower urinary tract symptom presence: symptoms present Lower urinary tract symptom detail: urinary retention Qualified Code(s): N40.1- Benign prostatic hyperplasia with lower urinary tract symptoms; R33.8 - Other retention of urine (8) Enlarged prostate: (9) Diabetes mellitus, type 2: QUALIFIERS: Diabetes mellitus transcription insulin use: without [place] [facility] use Diabetes mellitus complication status: with kidney complications (10) Chronic renal failure (CRF), stage 3b: (11) Hiatal hernia with GERD: (12) Morbid obesity: (13) KATHERINE (obstructive sleep apnea): PLAN: Plan 1. Continue therapy 2. Continue Amaryl 2 mg p.o. daily 3. Voiding trial today 4. Continue oxygen supplementation at night. Repeat an overnight trending pulse ox prior to discharge........ gabapentin and oxycodone may have contributed to hypoxemia with sleep. Charges/Coding Visit Charges Inpatient E&M: 69060 Subs Hosp L2 02/24/25 0950 <Electronically signed by Asia Dodd DO> Asia Dodd DO Cosigner Signature (if applicable): CC: ~ Signed ADDENDUM by Dr. Asia Dodd DO on 02/24/25 at 0955 Addendum Needs a follow up CXR in a couple weeks to make sure that the infiltrate in the RUL has cleared. If not then would proceed with a CT chest. 02/24/25 09 <Electronically signed by Asia dorsey DO> Date _ Asia Dodder Signature (if applicable): Date cc: ~* Signed [facility] Work Phone: 1(755) 883-795306-27-2025 Progress note [facility] Medical Records Department [address] [place] [address] Progress Note 02/23/25924 MR#: [id number] Acct: [id number] Name: JEREMIAH VILLA #:[id number] : 1945 79 From: Asia Dodd DO PCP: PRISCILLA Almanzar Status:ADM I N Location: [place] [address] Subjective Subjective Jeremiah was seen on team rounds today. His nephew, Rahul, who is his POA was present in the room. All questions were answered. Afebrile VSS -last 4 blood pressures have been better and the blood pressure this morningis 121/48. Lisinopril was restarted yesterday. It had been discontinued in thehospital for acute on chronic renal failure. Heart rate has ranged from 81-90 over the past 24 hours. Maintaining appropriate oxygen saturation on RA Oral intake - FOOD good FLUIDS he had 1160 in yesterday and 1550 out for fluid balance of -390. Overnight he had 120 in and 1350 for a fluid balance of -1230. He had a BM yesterday after Dulcolax tabs. Was given a Dulcolax suppository today and it was effective. Discussed with nursing - no problems that need addressed Reviewed the THERAPY notes - Not wanting to complete the 3 hours of therapy daily and giving the therapists a hard time when they are trying to encourage him. Medication list reviewed. Tells me his pain is better and his Oxycodone need has significantly decreased. Gaapentin has been weaned down. Minus chest pain, shortness of breath, cough, palpitations, calf pain. Argumentative. Objective Data Objective Data Vital Signs: Vital Signs Temp Pulse Resp BP Pulse Ox O2 Del Method O2 Flow Rate 97.9 F 90 16 121/48 H 99 Room Air 2 02/23/25 06:00 02/23/25 06:00 02/23/25 06:00 02/23/25 06:00 02/23/25 06:00 02/23/25 06:00 02/20/25 01:00 FiO2 21 02/17/25 22:01 Oxygen Flow Rate (L/min) 2 Oxygen Delivery Method Room Air Weight: 284 lb 2.813 oz Body Mass Index (BMI) 39.6 Intake & Output: Intake and Output for Last 24 Hours 02/21/25 02/22/25 02/23/25 23:59 23:59 23:59 Intake Total 1490 / 1490 1160 / 1160 120 / 120 Output Total 1130 / 1130 1550 / 2150 1350 / 1350 Balance 360 / 360 -390 / -990 -1230 / -1230 Lab / Micro Data 02/24/25 05:32 02/24/25 05:32 Labs: Laboratory Results - last 24 hr 02/22/25 11:06: POC Glucose 165 H 02/22/25 16:03: POC Glucose 158 H 02/22/25 21:22: POC Glucose 145 H 02/23/25 06:27: POC Glucose 155 H Micro: Microbiology 02/17/25 16:58 Nasal Secretion SARS-CoV-2 Antigen (Rapid) - Final Social Homelessness:: Sheltered Physical Exam Const alert, oriented x3 and no apparent distress Constitutional Narrative: Sitting in the recliner at the bedside with his legs once again dependent. Resp normal respiratory effort and clear to auscultation bilaterally Resp Narrative: No conversational dyspnea Effort and Inspection: Negative for tachypneic Cardio regular rate, regular rhythm and no gallops Cardio Narrative: No ectopy GI normal to inspection, nondistended, normoactive bowel sounds Extremity no calf tenderness Extremity Narrative: Edema in the feet and lower extremities has decreased since admission to rehab. Florence wraps and ELLY hose are in place. Skin Rashes: no rashes Assessment & Plan Assessment/Plan (1) Physical debility: (2) Status post left hip replacement: (3) Acute blood loss as cause of postoperative anemia: (4) Erosive esophagitis: (5) Aspiration pneumonia: QUALIFIERS: Aspiration pneumonia type: due to gastric secretions Laterality: right Lung location: unspecified part of lung Qualified Code(s): J69.0 - Pneumonitis due to inhalation of food and vomit (6) Urine retention: (7) BPH (benign prostatic hyperplasia): QUALIFIERS: Lower urinary tract symptom presence: symptoms present Lower urinary tract symptom detail: urinary retention Qualified Code(s): N40.1- Benign prostatic hyperplasia with lower urinary tract symptoms; R33.8 - Other retention of urine (8) Enlarged prostate: (9) Diabetes mellitus, type 2: QUALIFIERS: Diabetes mellitus transcription insulin use: without [place] [facility] use Diabetes mellitus complication status: with kidney complications (10) Chronic renal failure (CRF), stage 3b: (11) Hiatal hernia with GERD: (12) Morbid obesity: (13) KATHERINE (obstructive sleep apnea): PLAN: Plan 1. Continue therapy 2. Continue Amaryl 2 mg p.o. daily 3. Voiding trial today 4. Continue oxygen supplementation at night. Repeat an overnight trending pulse ox prior to discharge........ gabapentin and oxycodone may have contributed to hypoxemia with sleep. Charges/Coding Visit Charges Inpatient E&M: 19660 Subs Hosp L2 02/24/25 0950 Asia Dodd DO Cosigner Signature (if applicable): CC: ~ Signed ADDENDUM by Dr. Asia Dodd DO on 02/24/25 at 0955 Addendum Needs a follow up CXR in a couple weeks to make sure that the infiltrate in the RUL has cleared. If not then would proceed with a CT chest. 02/24/25 0955 ti DO> Date _ Asia Dodd Signature (if applicable): Date cc: ~* Signed [facility]06-24-2025 Progress note Author Asia Dodd [facility] Note Date/Time February 21, 2025 1:46 pm [facility] Medical Records Department [address] [place] [address] Progress Note 02/21/25 1029 MR#: [id number] Acct: [id number] Name: JEREMIAH VILLA Rep #:[id number] : 1945 79 From: Asia Dodd DO PCP: PRISCILLA Almanzar Status:ADM I N Location: [place] [address]-1 Subjective Subjective Afebrile VSS -blood pressure this morning is 113/83 with a heart rate of 71. He is afebrile. Blood pressure over the past 24 hours has ranged from 113/83 to 158/72. Heart rate is always within normal limits. Maintaining appropriate oxygen saturation on RA while awake. O2 ordered for when he is sleeping due to hypoxemia with sleep. Oral intake - FOOD refused breakfast today and also refused breakfast on Thursday. He is eating 75 to 100% of all his other meals. FLUIDS he took 1540 p.o. yesterday and had 1825 out for a balance of -285. The blood sugar record was reviewed. He was started on Amaryl 1 mg daily yesterday and we are starting with a better fasting of 158 today. Will continuesliding scale insulin but he is getting minimal coverage. Discussed with nursing - refused a laxative yesterday per nursing....pt denies. Has had 1 BM since he arrived on rehab and that was on Thursday. Polyethylene glycol was added to the drug regimen yesterday. Reviewed the THERAPY notes - needed a lot of encouragement yesterday to do ADL's. Medication list reviewed. Tells me his pain is adequately controlled. He does say he feels drowsy during the day. He is on supplemental oxygen at night for hypoxemia with sleep/abnormal overnight trending pulse ox. Denies abdominal pain, nausea, heartburn, chest pain, shortness of breath, palpitations, calf pain. Objective Data Objective Data Vital Signs: Vital Signs Temp Pulse Resp BP Pulse Ox O2 Del Method O2 Flow Rate 98.1 F 71 15 113/83 H 94 Room Air 2 02/21/25 06:00 02/21/25 06:00 02/21/25 06:00 02/21/25 06:00 02/21/25 07:20 02/21/25 07:20 02/20/25 01:00 FiO2 21 02/17/25 22:01 Oxygen Flow Rate (L/min) 2 Oxygen Delivery Method Room Air Weight: 270 lb 8.997 oz Body Mass Index (BMI) 37.7 Intake & Output: Intake and Output for Last 24 Hours 02/19/25 02/20/25 02/21/25 23:59 23:59 23:59 Intake Total 1297 / 1297 1540 / 1540 890 / 890 Output Total 1075 / 1075 1825 / 1825 830 / 830 Balance 222 / 222 -285 / -285 60 / 60 Lab / Micro Data 02/18/25 04:35 02/20/25 05:19 Labs: Laboratory Results - last 24 hr 02/20/25 05:19: Phosphorus 4.0, Magnesium 1.9 02/20/25 11:20: POC Glucose 211 H 02/20/25 12:41: Ur Random Microalbumin 79.3 02/20/25 16:43: POC Glucose 216 H 02/20/25 22:09: POC Glucose 181 H 02/21/25 06:51: POC Glucose 158 H Micro: Microbiology 02/17/25 16:58 Nasal Secretion SARS-CoV-2 Antigen (Rapid) - Final Social Homelessness:: Sheltered Physical Exam Const alert, oriented x3 and no apparent distress Constitutional Narrative: sitting in the recliner eating well. General Appearance: cooperative Eyes PERRL, EOMs intact bilaterally, conjunctivae normal and no scleral icterus Eyes Narrative: No discharge from the eyes and no mattering of the eyelashes. No visual field cuts. No nystagmus. Smooth pursuit. Neck supple, No nodes and no carotid bruits General: trachea midline Chest Chest: symmetrical chest wall rise Resp normal respiratory effort and clear to auscultation bilaterally Resp Narrative: 1 cough with the first deep breath. Effort and Inspection: Negative for tachypneic Cardio regular rate and regular rhythm Cardio Narrative: resting HR is better since his fluid intake has improved. GI normal to inspection, nondistended, normoactive bowel sounds, soft to palpation and non-tender GI Narrative: Denies feeling bloated or nauseated. no CVA tenderness Bladder / Kidney Exam: catheter in place urethral (urine in the Tsang bag is dark alber. ) Extremity no calf tenderness Extremity Narrative: ELLY hose are in place. Skin Skin Narrative: He has a area of dry, scaley, hyperpigmented skin on the distal anterior R leg at about mid tibia. Rashes: no rashes Neuro oriented x3, CN's II-XII intact bilaterally, moves all extremities and no focal motor deficits Psych mental status grossly normal, thought process normal, cooperative, affect normaland speech normal; Negative for denies hallucinations, denies homicidal ideationor denies suicidal ideation Appearance: grossly normal, appropriate and well kempt Attitude: calm and engaged Activity / Motor Behavior: appropriate eye contact Assessment & Plan Assessment/Plan (1) Physical debility: (2) Status post left hip replacement: (3) Acute blood loss as cause of postoperative anemia: (4) Erosive esophagitis: (5) Aspiration pneumonia: QUALIFIERS: Aspiration pneumonia type: due to gastric secretions Laterality: right Lung location: unspecified part of lung Qualified Code(s): J69.0 - Pneumonitis due to inhalation of food and vomit (6) Dehydration: (7) Urine retention: (8) BPH (benign prostatic hyperplasia): QUALIFIERS: Lower urinary tract symptom presence: symptoms present Lower urinary tract symptom detail: urinary retention Qualified Code(s): N40.1- Benign prostatic hyperplasia with lower urinary tract symptoms; R33.8 - Other retention of urine (9) Enlarged prostate: (10) Diabetes mellitus, type 2: QUALIFIERS: Diabetes mellitus [facility] insulin use: without transcription use Diabetes mellitus complication status: with kidney complications (11) Chronic renal failure (CRF), stage 3b: (12) Hiatal hernia with GERD: (13) Morbid obesity: (14) KATHERINE (obstructive sleep apnea): PLAN: Will repeat and overnight trending pulse ox the night prior to DC from rehab to see if he still desaturates off most of the sedating medications. PLAN: Plan 1. Continue therapy 2. He was given milk of magnesia today. Had polyethylene glycol and senna yesterday and today. 3. I reviewed the records from Dr. Hugo. He is supposed to be taking Lisinopril 5 mg and he is not taking this on rehab........it was stopped while on the acute side of the hospital for Acute on Chronic renal failure. Creat wasdown to baseline yesterday of 1.32. Will start Lisinopril 5 mg daily today.. Continue to monitor the BP closely and recheck a BMP on Thursday. 4. CBC on Thursdayvin and I discussed decreasing the Oxycodone dose to 5 mg and he is agreeableto this. He only had 1 dose of Oxycodone yesterday. Gabapentin was decreased from 300 mg TID to 100 mg and now he is on gabapentin 100 mg BID. He was not onthis medication prior to admission to the hospital. The plan is to have him offGabapentin at the time of DC. Charges/Coding Visit Charges Inpatient E&M: 39172 Subs Hosp L1 02/21/25 9025 <Electronically signed by Asia Dodd DO> Asia Dodd DO Cosigner Signature (if applicable): CC: ~ Signed [facility] Work Phone: 1([phone]) 701-963906-24-2025 Progress note [facility] Medical Records Department [address] [place] [address] Progress Note 02/21/25 1029 MR#: [id number] Acct: [id number] Name: JEREMIAH VILLA Rep #:[id number] : 1945 79 From: Asia Dodd DO PCP: PRISCILLA Almanzar Status:ADM I N Location: [place] [address] Subjective Subjective Afebrile VSS -blood pressure this morning is 113/83 with a heart rate of 71. He is afebrile. Blood pressure over the past 24 hours has ranged from 113/83 to 158/72. Heart rate is always within normal limits. Maintaining appropriate oxygen saturation on RA while awake. O2 ordered for when he is sleeping dueto hypoxemia with sleep. Oral intake - FOOD refused breakfast today and also refused breakfast on Thursday. He is eating 75 to100% of all his other meals. FLUIDS he took 1540 p.o. yesterday and had 1825 out for a balance of -285. The blood sugar record was reviewed. He was started on Amaryl 1 mg daily yesterday and we are starting with a better fasting of 158 today. Will continuesliding scale insulin but he is getting minimalcoverage. Discussed with nursing - refused a laxative yesterday per nursing....pt denies. Has had 1 BM since he arrived on rehab and that was on Thursday. Polyethylene glycol was added to the drug regimen yesterday. Reviewed the THERAPY notes - needed a lot of encouragement yesterday to do ADL's. Medication list reviewed. Tells me his pain is adequately controlled. He does say he feels drowsy during the day. He is on supplemental oxygen at night for hypoxemia with sleep/abnormal overnight trending pulse ox. Denies abdominal pain, nausea, heartburn, chest pain, shortness of breath, palpitations, calf pain. Objective Data Objective Data Vital Signs: Vital Signs Temp Pulse Resp BP Pulse Ox O2 Del Method O2 Flow Rate 98.1 F 71 15 113/83 H 94 Room Air 2 02/21/25 06:00 02/21/25 06:00 02/21/25 06:00 02/21/25 06:00 02/21/25 07:20 02/21/25 07:20 02/20/25 01:00 FiO2 21 02/17/25 22:01 Oxygen Flow Rate (L/min) 2 Oxygen Delivery Method Room Air Weight: 270 lb 8.997 oz Body Mass Index (BMI) 37.7 Intake & Output: Intake and Output for Last 24 Hours 02/19/25 02/20/25 02/21/25 23:59 23:59 23:59 Intake Total 1297 / 1297 1540 / 1540 890 / 890 Output Total 1075 / 1075 1825 / 1825 830 / 830 Balance 222 / 222 -285 / -285 60 / 60 Lab / Micro Data 02/18/25 04:35 02/20/25 05:19 Labs: Laboratory Results - last 24 hr 02/20/25 05:19: Phosphorus 4.0, Magnesium 1.9 02/20/25 11:20: POC Glucose 211 H 02/20/25 12:41: Ur Random Microalbumin 79.3 02/20/25 16:43: POC Glucose 216 H 02/20/25 22:09: POC Glucose 181 H 02/21/25 06:51: POC Glucose 158 H Micro: Microbiology 02/17/25 16:58 Nasal Secretion SARS-CoV-2 Antigen (Rapid) - Final Social Homelessness:: Sheltered Physical Exam Const alert, oriented x3 and no apparent distress Constitutional Narrative: sitting in the recliner eating well. General Appearance: cooperative Eyes PERRL, EOMs intact bilaterally, conjunctivae normal and no scleral icterus Eyes Narrative: No discharge from the eyes and no mattering of the eyelashes. No visual field cuts. No nystagmus. Smooth pursuit. Neck supple, No nodes and no carotid bruits General: trachea midline Chest Chest: symmetrical chest wall rise Resp normal respiratory effort and clear to auscultation bilaterally Resp Narrative: 1 cough with the first deep breath. Effort and Inspection: Negative for tachypneic Cardio regular rate and regular rhythm Cardio Narrative: resting HR is better since his fluid intake has improved. GI normal to inspection, nondistended, normoactive bowel sounds, soft to palpation and non-tender GI Narrative: Denies feeling bloated or nauseated. no CVA tenderness Bladder / Kidney Exam: catheter in place urethral (urine in the Tsang bag is dark alber. ) Extremity no calf tenderness Extremity Narrative: ELLY hose are in place. Skin Skin Narrative: He has a area of dry, scaley, hyperpigmented skin on the distal anterior R leg at about mid tibia. Rashes: no rashes Neuro oriented x3, CN's II-XII intact bilaterally, moves all extremities and no focal motor deficits Psych mental status grossly normal, thought process normal, cooperative, affect normaland speech normal; Negative for denies hallucinations, denies homicidal ideationor denies suicidal ideation Appearance: grossly normal, appropriate and well kempt Attitude: calm and engaged Activity / Motor Behavior: appropriate eye contact Assessment & Plan Assessment/Plan (1) Physical debility: (2) Status post left hip replacement: (3) Acute blood loss as cause of postoperative anemia: (4) Erosive esophagitis: (5) Aspiration pneumonia: QUALIFIERS: Aspiration pneumonia type: due to gastric secretions Laterality: right Lung location: unspecified part of lung Qualified Code(s): J69.0 - Pneumonitis due to inhalation of food and vomit (6) Dehydration: (7) Urine retention: (8) BPH (benign prostatic hyperplasia): QUALIFIERS: Lower urinary tract symptom presence: symptoms present Lower urinary tract symptom detail: urinary retention Qualified Code(s): N40.1- Benign prostatic hyperplasia with lower urinary tract symptoms; R33.8 - Other retention of urine (9) Enlarged prostate: (10) Diabetes mellitus, type 2: QUALIFIERS: Diabetes mellitus [facility] insulin use: without transcription use Diabetes mellitus complication status: with kidney complications (11) Chronic renal failure (CRF), stage 3b: (12) Hiatal hernia with GERD: (13) Morbid obesity: (14) KATHERINE (obstructive sleep apnea): PLAN: Will repeat and overnight trending pulse ox the night prior to DC from rehab to see if he still desaturates off most of the sedating medications. PLAN: Plan 1. Continue therapy 2. He was given milk of magnesia today. Had polyethylene glycol and senna yesterday and today. 3. I reviewed the records from Dr. Hugo. He is supposed to be taking Lisinopril 5 mg and he is not taking this on rehab........it was stopped while on the acute side of the hospital for Acute on Chronic renal failure. Creat wasdown to baseline yesterday of 1.32. Will start Lisinopril 5 mg daily today.. Continue to monitor the BP closely and recheck a BMP on Thursday. 4. CBC on Thursday Jeremiah and I discussed decreasing the Oxycodone dose to 5 mg and he is agreeableto this. He only had 1 dose of Oxycodone yesterday. Gabapentin was decreased from 300 mg TID to 100 mg and now he is ongabapentin 100 mg BID. He was not onthis medication prior to admission to the hospital. The plan isto have him offGabapentin at the time of DC. Charges/Coding Visit Charges Inpatient E&M: 92850 [facility] Hosp L1 02/21/25 1346 Asia Dodd DO Cosigner Signature (if applicable): CC: ~ Signed [facility]06-23-2025 Progress note Author [facility] Note Date/Time February 20, 2025 11:5 2am [facility] Medical Records Department [address] [place] [address] Progress Note 02/20/25 0956 MR#: [id number] Acct: [id number] Name: JEREMIAH VILLA Rep #:[id number] : 1945 79 From: Asia Dodd DO PCP: PRISCILLA Almanzar Status:ADM I N Location: [place] [address] Subjective Subjective Afebrile VSS - orthostatics are negative today. Blood pressure over the weekend has ranged from 143/77 to 163/79 when he is not having orthostatics. Current BP while standing is 155/70. He is not on an antihypertensive. Maintaining appropriate oxygen saturation on RA Oral intake - FOOD good FLUIDS fair The blood sugar record was reviewed. Has had 1 BM since he arrived on rehab and that was Thursday. Orthostatics yesterday were still positive and the blood pressure lying down [id number] with a heart rate of 99. Standing up the blood pressure was 105/50 with a heart rate of 108. He felt slightly lightheaded. Discussed with nursing - no problems that need addressed Reviewed the THERAPY notes Medication list reviewed. Took Oxycodone 3 times yesterday and has had 1 dose today. All lab done this morning was personally reviewed. Sodium is 138 and the potassium is 4.5. The BUN is 26 with a creatinine of 1.34, down from 1.92 on 02/17/2025. Hemoglobin A1c was 6.2. Calcium is within normal limits. The lipidpanel showed TRIg of 137 and a total cholesterol of 154 with an LDL of 100 and HDL of only 27. Urine culture has no growth. He is c/o not moving his bowels. Has had only 1 BM since arrival on rehab. I explained that this is due to narcotics, decreased movement and poor fluid intake. Rare cough, denies lightheadedness today except when he is walked a long way. Denies chest pain, hemoptysis, shortness of breath at rest, nausea/vomiting/abdominal pain, suprapubic pain and calf pain. I reviewed the overnight trending pule ox. 12.2% of the time he was monitored the O2 sat was 89% or less. There were 3 desaturations lasting longer than 1 minute. He was placed on supplemental oxygen at 2 L/min while sleeping. Oxycodone may have something to do with this........after the Oxycodone dose hasbeen weaned down will repeat the overnight trending pulse ox prior to DC. HR was increased at > 100 for approximately 23 minutes while sleeping.......due to hypoxemia? could he be having AF? Objective Data Objective Data Vital Signs: Vital Signs Temp Pulse Resp BP Pulse Ox O2 Del Method O2 Flow Rate 98.8 F 88 16 158/72 H 94 Room Air 2 02/20/25 05:24 02/20/25 05:24 02/20/25 05:24 02/20/25 05:24 02/20/25 05:24 02/20/25 07:08 02/20/25 01:00 FiO2 21 02/17/25 22:01 Oxygen Flow Rate (L/min) 2 Oxygen Delivery Method Room Air Weight: 270 lb 8.997 oz Body Mass Index (BMI) 37.7 Intake & Output: Intake and Output for Last 24 Hours 02/18/25 02/19/25 02/20/25 23:59 23:59 23:59 Intake Total 4480 / 4480 1297 / 1297 300 / 300 Output Total 1600 / 1600 1075 / 1075 925 / 925 Balance 2880 / 2880 222 / 222 -625 / -625 Lab / Micro Data 02/18/25 04:35 02/20/25 05:19 Labs: Laboratory Results - last 24 hr 02/19/25 11:34: POC Glucose 132 H 02/19/25 16:29: POC Glucose 170 H 02/19/25 22:08: POC Glucose 243 H 02/20/25 05:19: Sodium 138, Potassium 4.5, Chloride 105, Carbon Dioxide 23.9, Anion Gap 9, BUN 26 H, Creatinine 1.34 H, Estim Creat Clear Calc 60.58, Est GFR (MDRD) Non-Af 54 L, BUN/Creatinine Ratio 19.4, Glucose 205 H, Calcium 8.8 02/20/25 06:29: POC Glucose 193 H Micro: Microbiology 02/17/25 16:58 Nasal Secretion SARS-CoV-2 Antigen (Rapid) - Final Social Homelessness:: Sheltered Physical Exam Const alert and no apparent distress General Appearance: cooperative HEENT HEENT Narrative: MM are not as dry as they were but, they are still dry. Eyes PERRL, EOMs intact bilaterally, conjunctivae normal and no scleral icterus Eyes Narrative: No discharge from the eyes and no mattering of the eyelashes. No visual field cuts. No nystagmus. Smooth pursuit. Neck supple General: trachea midline Chest Chest: symmetrical chest wall rise Resp clear to auscultation bilaterally Resp Narrative: 1 cough with the first deep breath. Effort and Inspection: Negative for tachypneic or labored Cardio regular rate, regular rhythm and no gallops Cardio Narrative: Increased resting heart rate. No ectopy. GI normal to inspection, nondistended, normoactive bowel sounds, soft to palpation and non-tender GI Narrative: No guarding with palpation. Urine in the Tsang bag is frame bender than it was at admission to rehab. no CVA tenderness Bladder / Kidney Exam: catheter in place urethral (urine in the Tsang bag is dark alber. ) Extremity no calf tenderness Extremity Narrative: ELLY hose are in place. Skin Skin Narrative: He has a area of dry, scaley, hyperpigmented skin on the distal anterior R leg at about mid tibia. Neuro oriented x3, CN's II-XII intact bilaterally, moves all extremities and no focal motor deficits Psych mental status grossly normal, thought process normal, cooperative, affect normaland speech normal; Negative for denies hallucinations, denies homicidal ideationor denies suicidal ideation Appearance: grossly normal, appropriate and well kempt Attitude: calm and engaged Activity / Motor Behavior: appropriate eye contact Assessment & Plan Assessment/Plan (1) Physical debility: (2) Status post left hip replacement: (3) Acute blood loss as cause of postoperative anemia: (4) Erosive esophagitis: (5) Aspiration pneumonia: QUALIFIERS: Aspiration pneumonia type: due to gastric secretions Laterality: right Lung location: unspecified part of lung Qualified Code(s): J69.0 - Pneumonitis due to inhalation of food and vomit (6) Dehydration: (7) Urine retention: (8) BPH (benign prostatic hyperplasia): QUALIFIERS: Lower urinary tract symptom presence: symptoms present Lower urinary tract symptom detail: urinary retention Qualified Code(s): N40.1- Benign prostatic hyperplasia with lower urinary tract symptoms; R33.8 - Other retention of urine (9) Enlarged prostate: (10) Diabetes mellitus, type 2: QUALIFIERS: Diabetes mellitus transcription insulin use: without transcription use Diabetes mellitus complication status: with kidney complications (11) Chronic renal failure (CRF), stage 3b: (12) Hiatal hernia with GERD: (13) Morbid obesity: (14) KATHERINE (obstructive sleep apnea): PLAN: Plan 1. Continue therapy 2. Check a magnesium and phosphorus today 3. Start atorvastatin 4. Check orthostatics today now that he is better hydrated. 5. Voiding trail after he has had 5-6 doses of Flomax. 6. Start Glimepiride 1 mg PO daily today. Continue SSI for now 7. I reinforced with him the importance of maintaining good fluid intake to prevent acute on chronic renal failure. 8. Laxative today. 9. Minimal cough and his lungs are clear to auscultation today. He has had no fevers and has not been receiving Tylenol. Discontinue Unasyn and start Augmentin to finish 7 days of treatment for right upper lobe pneumonia suspectedto be due to aspiration. 10. Continue to monitor BP........consider adding an FLORENCE or an ARB.......or defer to his PCP to deal with as OP......pt is somewhat resistant to any change in his medications. We are awaiting the records from PCP. 11. check a urine microalbumin 12. Doing OK with the decrease in the Gabapentin to 100 mg TID from 300 mg TID.......will change the dosing to BID and would like to taper off prior to DC from rehab. 13. Restart Tylenol to help with pain control. Spent time with him trying to educate him an why it is important to maintain good water intake and what it does to his kidney function if he doesn't and why drinking maple water to keep himself hydrated is probably not ivey in a diabetic. Charges/Coding Visit Charges Inpatient E&M: 60760 Subs Hosp L2 02/20/25 1152 <Electronically signed by Asia Dodd DO> Asia Dodd DO Cosigner Signature (if applicable): CC: ~ Signed [facility] Work Phone: 1(777) 367-434506-23-2025 History and physical note Author [facility] Note Date/Time February 20, 2025 9:56 am [facility] Medical Records Department [address] [place] [address] Post Admission Physician Padmaja 02/17/25 1754 MR#: [id number] Acct: [id number] Name: JEREMIAH VILLA Rep #:[id number] : 1945 79 From: Asia Dodd DO PCP: PRISCILLA Almanzar Status:ADM I N Location: [place] [address] Admission Information Primary Diagnosis:: Debility secondary to left total hip replacement Status Changes from Prescreening?: No changes Identified Actual Problem List:: Infection, Aspiration, Pain, ALteration in Cmfrt, Bowel, Constipation, Alteration in Sleep, Mobility Impaired, Self Care Deficit, Diabetes, Hyperglycemia, Alteration/ Air Exchange, Fluid Change-Dehydration and Alteration-Leisure Activ. Potential Problem List:: DVT, Bleeding, Infection, UTI, Aspiration, Falls, Skin Integrity and Depression Risk of Complications DVT: ELLY Jerome and - (Apixaban 2.5 mg twice daily) Bleeding: Monitor Lab Values, Nursing to Teach Precautions for anti-coagulation therapy., Wound, if applicable, to be assessed every shift. and Stroke patients assessed for lethargy or change in status. Infection: Clinical Staff to Monitor for S/S of infection: and S/S of infection include fever, redness, warmth, etc. Urinary Tract Infection: Monitor for frequency, burning, discomfort, or incontinence. and Nursing will obtain urine sample for urinalysis and C&S when ordered. Aspiration: Clinical staff will monitor for coughing, drooling, congestion., Speech will evaluate swallowing and dsyphasia. and Nursing will monitor patient swallowing during meals. Falls: Patient will be evaluated for Fall Precautions and Patient will be placedon Fall Precautions as indicated per protocol. Skin Breakdown: Nursing will assess skin daily using assessment tool. and Nursing will place on Skin Breakdown Precautions as indicated. Pain: Clinical staff will assess patient's pain level per protocol., Medicationswill be given, if needed, and the pain level reassessed. and Other methods: Massage, distraction, decrease stimulus, etc. used PRN. Plan of Care Patient requires physician specializing in physical medicine and rehab oversightto provide close medical supervision of rehab issues including: Pain Management,Sleep Problems, Bowel and Bladder, Medical and co-morbidity Management, DVT prophylaxis, Rehabilitation Leadership and Coordination of treatment team Patient needs Physical Therapy: For a minimum of 1 hour and At least 5 out of 7 days Patient needs Physical Therapy to improve:: Mobility, Strengthening, Transfers, Stretching, ROM, Endurance, Stairs, Gait and Balance Patient needs Occupational Therapy: For a minimum of 1 hour and At least 5 out of 7 days Patient needs Occupational Therapy to improve ADL's incl.: Eating, Grooming, Bathing, Dressing, Toileting, Toilet transfers, Community Reintegration, Higher functioning activities, Household tasks, Adaptive Equipment, Splinting and Otheractivities as determined Patient requires 24/7 Rehabilitation Nursing for: Pain Issues, Identifying and preventing risk factors, Monitoring and reporting current medical conditions, Assisting with ambulation, transfer, and all ADL's, Teaching patients about disease process and medications, Family teaching, Providing safe environment, Bowel and Bladder Issues, Skin integrity and Medication Management Patient needs Fender Mechanic/ Case Management for: Discharge Planning, Arranging Home Equipment or Services and Family Interventions Patient needs Dietary and Nutrition Services for: Adequate Nutrition, Nutritional Supplements and Nutritional Education Goals Goals Patient will remain: free from falls Patient will perform eating at: MOD I level of assist. Patient will perform bed mobility at: MOD I level of assist. Patient will complete transfers from bed to chair at: MOD I level of assist. Patient will propel wheelchair: - (150 feet at mod I with a rollator walker) Patient will complete upper body dressing at: MOD I level of assist. Patient will complete lower body dressing at: MOD I level of assist. (With adaptive equipment as needed) Patient will complete toilet transfer at: MOD I level of assist. Patient will complete toileting at: MOD I level of assist. Patient will perform bathing at: MOD I level of assist. Patient will perform Tub/Shower transfer at: - (Supervision) Patient will complete grooming at: MOD I level of assist. (While standing at thesink) Patient will achieve: - (2 steps at modified with 2 handrails) Patient will have pain level of: of 3 or less Patient's skin will: remain intact Patient will receive: adequate nutrition. Discharge Planning Estimated Length of stay (days): 28 Anticipated D/C Destination: Home with Outpt Therapy Was Preadmission Assessment Accurate?: Yes 02/20/25955 <Electronically signed by Asia Dodd DO> Cosigner Signature (if applicable): CC: ~ Signed [facility] Work Phone: [phone]) 519-612306-23-2025 Progress note [facility] Medical Records Department [address] [place] [id number] Progress Note 02/20/25955 MR#: [id number] Acct: [id number] Name: JEREMIAH VILLA Rep #:[id number] : 1945 79 From: Asia Dodd DO PCP: PRISCILLA Almanzar Status:ADM I N Location: [place] [address] Subjective Subjective Afebrile VSS - orthostatics are negative today. Blood pressure over the weekend has ranged from 143/77 to 163/79 when he is not having orthostatics. Current BP while standing is 155/70. He is not on an antihypertensive. Maintaining appropriate oxygen saturation on RA Oral intake - FOOD good FLUIDS fair The blood sugar record was reviewed. Has had 1 BM since he arrived on rehab and that was Thursday. Orthostatics yesterday were still positive and the blood pressure lying down [id number] with a heartrate of 99. Standing up the blood pressure was 105/50 with a heart rate of 108. He felt slightly lightheaded. Discussed with nursing - no problems that need addressed Reviewed the THERAPY notes Medication list reviewed. Took Oxycodone 3 times yesterday and has had 1 dose today. All lab done this morning was personally reviewed. Sodium is 138 and the potassium is 4.5. The BUN is 26 with a creatinine of 1.34, down from 1.92 on 02/17/2025. Hemoglobin A1c was 6.2. Calcium is within normal limits. The lipidpanel showed TRIg of 137 and a total cholesterol of 154 with an LDL of 100 and HDL of only 27. Urine culture has no growth. He is c/o not moving his bowels. Has had only 1 BM since arrival on rehab. I explained that this isdue to narcotics, decreased movement and poor fluid intake. Rare cough, denies lightheadedness today except when he is walked a long way. Denies chest pain, hemoptysis, shortness of breath at rest, nausea/vomiting/abdominal pain, suprapubic pain and calf pain. I reviewed the overnight trending pule ox. 12.2% of the time he was monitored the O2 sat was 89% orless. There were 3 desaturations lasting longer than 1 minute. He was placed on supplemental oxygenat 2 L/min while sleeping. Oxycodone may have something to do with this........after the Oxycodone dose hasbeen weaned down will repeat the overnight trending pulse ox prior to DC. HR was increased at > 100 for approximately 23 minutes while sleeping.......due to hypoxemia? could he be having AF? Objective Data Objective Data Vital Signs: Vital Signs Temp Pulse Resp BP Pulse Ox O2 Del Method O2 Flow Rate 98.8 F 88 16 158/72 H 94 Room Air 2 02/20/25 05:24 02/20/25 05:24 02/20/25 05:24 02/20/25 05:24 02/20/25 05:24 02/20/25 07:08 02/20/25 01:00 FiO2 21 02/17/25 22:01 Oxygen Flow Rate (L/min) 2 Oxygen Delivery Method Room Air Weight: 270 lb 8.997 oz Body Mass Index (BMI) 37.7 Intake & Output: Intake and Output for Last 24 Hours 02/18/25 02/19/2525 23:59 23:59 23:59 Intake Total 4480 / 4480 1297 / 1297 300 / 300 Output Total 1600 / 1600 1075 / 1075 925 / 925 Balance 2880 / 2880 222 / 222 -625 / -625 Lab / Micro Data 02/18/25 04:35 02/20/25 05:19 Labs: Laboratory Results - last 24 hr 02/19/25 11:34: POC Glucose 132 H 02/19/25 16:29: POC Glucose 170 H 02/19/25 22:08: POC Glucose 243 H 02/20/25 05:19: Sodium 138, Potassium 4.5, Chloride 105, Carbon Dioxide 23.9, Anion Gap 9, BUN 26 H, Creatinine 1.34 H, Estim Creat Clear Calc 60.58, Est GFR (MDRD) Non-Af 54 L, BUN/Creatinine Ratio 19.4, Glucose 205 H, Calcium 8.8 02/20/25 06:29: POC Glucose 193 H Micro: Microbiology 02/17/25 16:58 Nasal Secretion SARS-CoV-2 Antigen (Rapid) - Final Social Homelessness:: Sheltered Physical Exam Const alert and no apparent distress General Appearance: cooperative HEENT HEENT Narrative: MM are not as dry as they were but, they are still dry. Eyes PERRL, EOMs intact bilaterally, conjunctivae normal and no scleral icterus Eyes Narrative: No discharge from the eyes and no mattering of the eyelashes. No visual field cuts. No nystagmus. Smooth pursuit. Neck supple General: trachea midline Chest Chest: symmetrical chest wall rise Resp clear to auscultation bilaterally Resp Narrative: 1 cough with the first deep breath. Effort and Inspection: Negative for tachypneic or labored Cardio regular rate, regular rhythm and no gallops Cardio Narrative: Increased resting heart rate. No ectopy. GI normal to inspection, nondistended, normoactive bowel sounds, soft to palpation and non-tender GI Narrative: No guarding with palpation. Urine in the Tsang bag is frame bender than it was at admission to rehab. no CVA tenderness Bladder / Kidney Exam: catheter in place urethral (urine in the Tsang bag is dark alber. ) Extremity no calf tenderness Extremity Narrative: ELLY hose are in place. Skin Skin Narrative: He has a area of dry, scaley, hyperpigmented skin on the distal anterior R leg at about mid tibia. Neuro oriented x3, CN's II-XII intact bilaterally, moves all extremities and no focal motor deficits Psych mental status grossly normal, thought process normal, cooperative, affect normaland speech normal; Negative for denies hallucinations, denies homicidal ideationor denies suicidal ideation Appearance: grossly normal, appropriate and well kempt Attitude: calm and engaged Activity / Motor Behavior: appropriate eye contact Assessment & Plan Assessment/Plan (1) Physical debility: (2) Status post left hip replacement: (3) Acute blood loss as cause of postoperative anemia: (4) Erosive esophagitis: (5) Aspiration pneumonia: QUALIFIERS: Aspiration pneumonia type: due to gastric secretions Laterality: right Lung location: unspecified part of lung Qualified Code(s): J69.0 - Pneumonitis due to inhalation of food and vomit (6) Dehydration: (7) Urine retention: (8) BPH (benign prostatic hyperplasia): QUALIFIERS: Lower urinary tract symptom presence: symptoms present Lower urinary tract symptom detail: urinary retention Qualified Code(s): N40.1- Benign prostatic hyperplasia with lower urinary tract symptoms; R33.8 - Other retention of urine (9) Enlarged prostate: (10) Diabetes mellitus, type 2: QUALIFIERS: Diabetes mellitus [facility] insulin use: without transcription use Diabetes mellitus complication status: with kidney complications (11) Chronic renal failure (CRF), stage 3b: (12) Hiatal hernia with GERD: (13) Morbid obesity: (14) KATHERINE (obstructive sleep apnea): PLAN: Plan 1. Continue therapy 2. Check a magnesium and phosphorus today 3. Start atorvastatin 4. Check orthostatics today now that he is better hydrated. 5. Voiding trail after he has had 5-6 doses of Flomax. 6. Start Glimepiride 1 mg PO daily today. Continue SSI for now 7. I reinforced with him the importance of maintaining good fluid intake to prevent acute on chronic renal failure. 8. Laxative today. 9. Minimal cough and his lungs are clear to auscultation today. He has had no fevers and has not been receiving Tylenol. Discontinue Unasyn and start Augmentin to finish 7 days of treatment for rightupper lobe pneumonia suspectedto be due to aspiration. 10. Continue to monitor BP........consider adding an FLORENCE or an ARB.......or defer to his PCP to deal with as OP......pt is somewhat resistant to any change in his medications. We are awaiting the records from PCP. 11. check a urine microalbumin 12. Doing OK with the decrease in the Gabapentin to 100 mg TID from 300 mg TID.......will change the dosing to BID and would like to taper off prior to DC from rehab. 13. Restart Tylenol to help with pain control. Spent time with him trying to educate him an why it is important to maintain good water intake and what it does to his kidney function if he doesn't and why drinking maple water to keep himself hydrated is probably not ivey in a diabetic. Charges/Coding Visit Charges Inpatient E&M: 10982 [facility] Hosp L2 02/20/25 1150 Asia Dodd DO Cosigner Signature (if applicable): CC: ~ Signed [facility]06-23-2025 History and physical note [facility] Medical Records Department [address] [place] [address] Post Admission Physician Eval 02/17/25 1754 MR#: [id number] Acct: [id number] Name: JEREMIAH VILLA Rep #:[id number] : 1945 79 From: Asia Dodd DO PCP: PRISCILLA Almanzar Status:ADM I N Location: [place] [address] Admission Information Primary Diagnosis:: Debility secondary to left total hip replacement Status Changes from Prescreening?: No changes Identified Actual Problem List:: Infection, Aspiration, Pain, ALteration in Cmfrt, Bowel, Constipation, Alteration in Sleep, Mobility Impaired, Self Care Deficit, Diabetes, Hyperglycemia, Alteration/ Air Exchange, Fluid Change-Dehydration and Alteration-Leisure Activ. Potential Problem List:: DVT, Bleeding, Infection, UTI, Aspiration, Falls, Skin Integrity and Depression Risk of Complications DVT: ELLY Jerome and - (Apixaban 2.5 mg twice daily) Bleeding: Monitor Lab Values, Nursing to Teach Precautions for anti-coagulation therapy., Wound, ifapplicable, to be assessed every shift. and Stroke patients assessed for lethargy or change in status. Infection: Clinical Staff to Monitor for S/S of infection: and S/S of infection include fever, redness, warmth, etc. Urinary Tract Infection: Monitor for frequency, burning, discomfort, or incontinence. and Nursing will obtain urine sample for urinalysis and C&S when ordered. Aspiration: Clinical staff will monitor for coughing, drooling, congestion., Speech will evaluate swallowing and dsyphasia. and Nursing will monitor patient swallowing during meals. Falls: Patient will be evaluated for Fall Precautions and Patient will be placedon Fall Precautionsas indicated per protocol. Skin Breakdown: Nursing will assess skin daily using assessment tool. and Nursing will place on Skin Breakdown Precautions as indicated. Pain: Clinical staff will assess patient's pain level per protocol., Medicationswill be given, if needed, and the pain level reassessed. and Other methods: Massage, distraction, decrease stimulus, etc. used PRN. Plan of Care Patient requires physician specializing in physical medicine and rehab oversightto provide close medical supervision of rehab issues including: Pain Management,Sleep Problems, Bowel and Bladder, Medical and co-morbidity Management, DVT prophylaxis, Rehabilitation Leadership and Coordination of treat ment team Patient needs Physical Therapy: For a minimum of 1 hour and At least 5 out of 7 days Patient needs Physical Therapy to improve:: Mobility, Strengthening, Transfers, Stretching, ROM, Endurance, Stairs, Gait and Balance Patient needs Occupational Therapy: For a minimum of 1 hour and At least 5 out of 7 days Patient needs Occupational Therapy to improve ADL's incl.: Eating, Grooming, Bathing, Dressing, Toileting, Toilet transfers, Community Reintegration, Higher functioning activities, Household tasks, Adaptive Equipment, Splinting and Otheractivities as determined Patient requires 24/7 Rehabilitation Nursing for: Pain Issues, Identifying and preventing risk factors, Monitoring and reporting current medical conditions, Assisting with ambulation, transfer, and all ADL's, Teaching patients about disease process and medications, Family teaching, Providing safe environment, Bowel and Bladder Issues, Skin integrity and Medication Management Patient needs Fender Mechanic/ Case Management for: Discharge Planning, Arranging Home Equipment orServices and Family Interventions Patient needs Dietary and Nutrition Services for: Adequate Nutrition, Nutritional Supplements and Nutritional Education Goals Goals Patient will remain: free from falls Patient will perform eating at: MOD I level of assist. Patient will perform bed mobility at: MOD I level of assist. Patient will complete transfers from bed to chair at: MOD I level of assist. Patient will propel wheelchair: - (150 feet at mod I with a rollator walker) Patient will complete upper body dressing at: MOD I level of assist. Patient will complete lower body dressing at: MOD I level of assist. (With adaptive equipment as needed) Patient will complete toilet transfer at: MOD I level of assist. Patient will complete toileting at: MOD I level of assist. Patient will perform bathing at: MOD I level of assist. Patient will perform Tub/Shower transfer at: - (Supervision) Patient will complete grooming at: MOD I level of assist. (While standing at thesink) Patient will achieve: - (2 steps at modified with 2 handrails) Patient will have pain level of: of 3 or less Patient's skin will: remain intact Patient will receive: adequate nutrition. Discharge Planning Estimated Length of stay (days): 28 Anticipated D/C Destination: Home with Outpt Therapy Was Preadmission Assessment Accurate?: Yes 02/20/25 0956 Cosigner Signature (if applicable): CC: ~ Signed [facility]06-20-2025 History and physical note Author Asia Dodd [facility] Note Date/Time February 17, 2025 5:57 pm [facility] Medical Records Department [address] [place] [address] History & Physical Exam 02/17/25 1612 MR#: [id number] Acct: [id number] Name: JEREMIAH VILLA Rep #:[id number] : 1945 79 From: Asia Dodd DO PCP: PRISCILLA Almanzar Status:ADM I N Location: [place] [address] HPI - General General Date of Admission: 02/17/25 Date of Service: 02/17/25 Chief Complaint: DEBILITY DUE TO R THR HPI Narrative JEREMIAH VILLA, is a 79 M with a PMH of DM II, morbid obesity, suspected BPH, osteoarthritis, chronic renal failure (creat on preop labs was 1.59 with a GFR of 44 which is consistent with stage III 3B chronic renal failure), tobacco dependence in remission and a PE after L hip replacement in the past who underwent a right total hip replacement by Dr. Galindo on 02/14/2025. Post operatively he was somnolent and unarousable. ABG showed a pH of 7.15 with a PCO2 of 84 and a PO2 of 94 on BiPAP (later transitioned to AVAPS). Chest x-ray showed a right upper lobe infiltrate. He was given Lasix in PACU. After about an hour on AVAPS he became arousable and the ABG showed pH of 7.27 with a PCO2 of 60 and a pO2 of 83. He was transferred to the intensive care unit. He was started on Unasyn for suspected aspiration PNA. At some point he was reported tohave had a coffee ground emesis. A CT scan of the abdomen with contrast was done and showed a right perihilar/right lower lobe multifocal pulmonary airspacedisease/consolidation likely representing pneumonia, chronic right renal atrophy, cholelithiasis without evidence of acute cholecystitis, small sliding hiatal hernia, colonic diverticulosis with no evidence of diverticulitis, mild prostatomegaly and moderate diffuse spondylosis. There was no evidence of active bleeding. Consult was ordered with GI. An EGD was done on 02/15/2025 andshowed grade C erosive esophagitis with no bleeding. There were no gross lesions in the entire stomach and no gross lesions in the entire examined duodenum. CT scan of the abdomen showed There was evidence of old blood in the nasopharynx and oropharynx. Creatinine on 02/16/2025 had risen to 2.2 and this was thought to be secondary to intravascular volume depletion and IV contrast. He was hydrated and the creatinine came down to 1.92 on 02/17/2025. He has been retaining urine in the hospital. Tsang catheter was removed but, PVR on 02/17/25 was 523 and the Tsang was re-inserted. He was started on Flomax. He takes an herbal prostate supplement at home and denies slow stream and dribbling. He was transferred to the acute inpatient rehab unit at [facility] on 02/17/2025 for 3 hours of therapy daily to restore function/independence at ornear his level prior to the recent hip replacement. He lives alone in a one-story house with a basement. He normally ambulates with a rollator walker. He is independent with his activities of daily living. He is c/o constipation and tells us that he has not had a BM in 1 week. He denies feeling nauseated. He refused breakfast and lunch on 02/17/25. He denies abd pain. He has an occasional cough and denies SOB at rest. He has SIMON. He has not had a fever but, he has been getting Tylenol 1 GM every 6 Hours. White blood cell count has been elevated since 820 on 02/15/2025. Today it is 13.2. Hemoglobin is 12.1, down from 15.8 on 02/03/2025. Platelets are normal. [facility] Medical History (Updated 02/17/25 @ 17:[address] Asia Dodd, ) Degenerative joint disease of left hip Trochanteric bursitis, left hip Tobacco dependence in remission Hiatal hernia with GERD Left lumbar radiculitis Chronic renal failure (CRF), stage 3b Lumbar spondylosis Wears glasses Wears partial dentures Alcohol use Rash Walker as ambulation aid Arthritis High cholesterol Back pain Syncope Dietary restriction Constipation Chewing tobacco use History of pain when walking Hypertension Pulmonary embolism Home Medications ?Medication ?Instructions ?Recorded ?Last Taken ?Type cholecalciferol (vitamin D3) 25 25 mcg PO DAILY SUPPLE MENT 02/07/25 02/17/25 History mcg (1,000 unit) tablet (Vitamin D3) magnesium 250 mg tablet 750 mg PO DAILY SUPPLEMENT 0 02/07/25 02/13/25 History vitamin K2 100 mcg capsule 100 mcg PO DAILY SUPPLEMENT 02/07/25 02/13/25 History Held on 02/17/25. Instructions: MD Ordered acetaminophen 500 mg tablet 1,000 mg (2 x 500 mg) PO Q 6H pain 02/16/25 Unknown Rx Held on 02/17/25. #100 tabs Instructions: MD Ordered apixaban 2.5 mg tablet (Eliquis) 2.5 mg PO BID Blood t hinner #66 02/16/25 Unknown Rx tabs gabapentin 300 mg capsule 300 mg PO TID Nerve pain #90 caps 02/16/25 Unknown Rx oxycodone 5 mg tablet 5 - 10 mg PO Q4H PRN pain Unknown History pantoprazole 40 mg tablet,delayed 40 mg PO BID GERD #0 tabs 02/17/25 02/17/25 Rx release sennosides 8.6 mg-docusate sodium 2 tab PO BID Constip ation #0 tabs 06/20/25 06/20/25 Rx 50 mg tablet (Stimulant Laxative Plus) tamsulosin 0.4 mg capsule 0.4 mg PO DAILY@0830 Urine 0 02/17/25 02/17/25 Rx retention #0 caps Allergy/AdvReac Type Severity Reaction Status Date / Time No Known Allergies Allergy Verified 02/14/25 10:16 Family History (Updated 02/17/25 @ 17:[address] Asia Dodd DO) Son VTE (venous thromboembolism) many family members have had blood clots......possible inherited hypercoagulable disorder. Surgical History (Updated 02/17/25 @ 17:[address] Asia Dodd DO) Status post left hip replacement Hx of right cataract extraction Hx of left cataract extraction Hx of appendectomy History of right hip replacement Social History (Updated 02/17/25 @ 17:[address] Asia Dodd DO) household members: none housing: house number of children: 7 current occupational status: retired Smoking Status: Former smoker Tobacco: How many years used: 35 Smokeless tobacco user: snuff how long ago did patient quit smokin years ago alcohol intake: current alcohol intake frequency: holidays/special occasions only details: has an occasional beer in the summer and a shot of whiskey in the winter. substance use type: does not use Homelessness:: Sheltered ROS Review of Systems ROS Unobtainable: Denies due to encephalopathy, due to endotracheal tube, due tomental condition or due to mental status Constitutional Constitutional: Reports fatigue and weakness; Denies anorexia, change in weight,chills, fever(s), frequent falls, headache(s) or night sweats Eyes Eyes: Denies blurry vision, change in vision, eye pain or loss of vision ENT HEENT: Denies abnormal hearing, dysphagia, headache(s), hearing loss, nasal congestion or sore throat Cardiovascular Cardiovascular: Reports dyspnea on exertion; Denies chest pain, edema, lightheadedness, orthopnea, palpitations, paroxysmal nocturnal dyspnea or syncope Respiratory/Chest Respiratory/Chest: Reports cough and shortness of breath with exertion; Denies dyspnea, pain on inspiration, portable oxygen @ home, shortness of breath at rest or wheezing Gastrointestinal Gastrointestinal: Reports constipation and other Details: had emesis while in the ICU following surgery ; Denies abdominal pain, diarrhea, dyspepsia, dysphagia, early satiety, fecal incontinence, hematemesis, hematochezia, nausea or vomiting Genitourinary Genitourinary: Reports other Details: urine retention in the hospital requiring insertion of a tsang catheter. ; Denies dysuria, hematuria, nocturia, urinary frequency, urinary hesitancy, urinary incontinence or urinary urgency Musculoskeletal Musculoskeletal: Reports back pain, difficulty walking and joint pain; Denies joint swelling, neck pain or radiating pain into limb Neurologic Neurologic: Denies confusion, disequilibrium, dizziness, focal weakness, headache(s), paresthesias, seizures or tremor(s) Psychiatric Psychiatric: Denies anxiety, depression, homicidal ideation or suicidal ideation Endocrine Endocrinology: Reports other Details: he has lost his sense of thirst and knows that he does not drink enough fluids. ; Denies change in body appearance, polydipsia or polyuria Hematologic/Lymphatic Hematologic/Lymphatic: Denies easy bleeding, easy bruising or lymphadenopathy Allergic/Immunologic Allergic/Immunologic: Reports other Details: he has a chronic rash on the RLE over the mid anterior tibia ; Denies rhinitis, eczemia or asthma Vital Signs Vital Signs Vital Signs: 02/17/25 15:31 Temperature 98.2 F Temperature Source Oral Pulse Rate 97 Respiratory Rate 16 Blood Pressure 140/73 H Blood Pressure Mean 95 Blood Pressure Source Monitor Blood Pressure Position Semi-Fowlers Blood Pressure Location Right Arm Pulse Ox 98 Oxygen Delivery Method Room Air Weight Weight: 270 lb 9 oz Body Mass Index (BMI) 37.7 Physical Exam Const alert, oriented x3 and no apparent distress General Appearance: cooperative and well kempt HEENT HEENT Narrative: VERY dry MM. No evidence of thrush Eyes PERRL, EOMs intact bilaterally, conjunctivae normal and no scleral icterus Eyes Narrative: No discharge from the eyes and no mattering of the eyelashes. No visual field cuts. No nystagmus. Smooth pursuit. Neck supple, No nodes and no carotid bruits General: trachea midline Chest Chest: symmetrical chest wall rise Resp Resp Narrative: Some coarse crackles in the mid upper right lung posteriorly. No wheezing. Nottachypneic. No conversational dyspnea. Effort and Inspection: able to speak in complete sentences Cardio regular rhythm, no murmurs, no rub and no gallops Cardio Narrative: Increased resting heart rate. No ectopy. GI GI Narrative: Obese, soft, ND, normal BS's, no guarding with palpation. no CVA tenderness Bladder / Kidney Exam: catheter in place urethral (urine in the Tsang bag is dark alber. ) Extremity no calf tenderness Extremity Narrative: he has pitting edema of the feet and ankles.......no TEDS in place. Skin Skin Narrative: He has a area of dry, scaley, hyperpigmented skin on the distal anterior R leg at about mid tibia. Neuro oriented x3, CN's II-XII intact bilaterally, moves all extremities and no focal motor deficits Psych mental status grossly normal, thought process normal, cooperative, affect normaland speech normal; Negative for denies hallucinations, denies homicidal ideationor denies suicidal ideation Appearance: grossly normal, appropriate and well kempt Attitude: calm and engaged Activity / Motor Behavior: appropriate eye contact Assessment & Plan Assessment/Plan (1) Physical debility: (2) Status post left hip replacement: (3) Other acute postprocedural pain: (4) Acute blood loss as cause of postoperative anemia: (5) Acute hypercapnic respiratory failure: (6) Coffee ground emesis: (7) Erosive esophagitis: (8) Aspiration pneumonia: QUALIFIERS: Aspiration pneumonia type: due to gastric secretions Laterality: right Lung location: unspecified part of lung Qualified Code(s): J69.0 - Pneumonitis due to inhalation of food and vomit (9) Acute renal failure superimposed on stage 3 chronic kidney disease: QUALIFIERS: Acute renal failure type: unspecified Chronic kidney disease stage 3 subtype: stage 3b (GFR 30-44) Qualified Code(s): N17.9 - Acute kidney failure, unspecified; N18.32 - Chronic kidney disease, stage 3b (10) Dehydration: (11) Urine retention: (12) BPH (benign prostatic hyperplasia): QUALIFIERS: Lower urinary tract symptom presence: symptoms present Lower urinary tract symptom detail: urinary retention Qualified Code(s): N40.1- Benign prostatic hyperplasia with lower urinary tract symptoms; R33.8 - Other retention of urine (13) Enlarged prostate: (14) Diabetes mellitus, type 2: QUALIFIERS: Diabetes mellitus transcription insulin use: without transcription use Diabetes mellitus complication status: with kidney complications (15) Chronic renal failure (CRF), stage 3b: (16) Hiatal hernia with GERD: (17) Morbid obesity: (18) KATHERINE (obstructive sleep apnea): (19) Pulmonary embolism: QUALIFIERS: Pulmonary embolism type: unspecified Chronicity: unspecified Acute cor pulmonale presence: unspecified Qualified Code(s): I26.99 - Other pulmonary embolism without acute cor pulmonale PLAN: 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 Galindo following DC from IP Rehab AM lab including CMP, CBC, Mag, lipid panel and Phos KUB PA and lateral chest x-ray Decrease gabapentin to 100 mg 3 times daily due to age and chronic kidney disease with acute exacerbation. Flomax has been started-voiding trial after 5 doses Orthostatic vital signs Normal saline at 125 cc/h x 2 L then discontinue Start Unasyn 1.5 g IV every 6 hours for aspiration pneumonia Urine culture Overnight trending pulse ox 70 minutes spent reviewing past diagnostic tests, lab results, vital sign trends, medical history, medications, all additional paperwork sent by the previous hospital, and ordering medications, examining the the patient and completing documentation. Charges/Coding Visit Charges Inpatient E&M: 90210 Init Hosp L3 02/17/25 175 <Electronically signed by Asia Dodd DO> Cosigner Signature (if applicable): CC: Dr. Rasheed Galindo DO; Dr. Asia Dodd DO; PRISCILLA Almanzar~ Signed ADDENDUM by Dr. Asia Dodd DO on 02/17/25 at 1757 Addendum The chest x-ray was reviewed and shows right upper lobe infiltrate and right perihilar infiltrate. There are no pleural effusions. Heart is of normal size. The KUB shows fecal retention, especially in the sigmoid and rectal areas. Stool softeners have been ordered and will give a Dulcolax suppository or an enema tonight. If this is not effective we will likely give oral laxatives as well. Patient was encouraged to increase his fluid intake. Continue to hold glipizide due to acute on chronic renal failure will check Accu-Cheks AC and at bedtime and use sliding scale insulin coverage. Adjust thesliding scale as needed. 02/17/251756<Electronically signed by Asia Dodd DO> Cosigner Signature (if applicable): cc: Dr. Rasheed Galindo DO; Dr. Asia Dodd DO; PRISCILLA Almanzar ~* Signed [facility] Work Phone: [phone]) 788-844206-20-2025 History and physical note [facility] Medical Records Department [address] [place] [address] History & Physical Exam 02/17/25 1612 MR#: [id number] Acct: [id number] Name: JEREMIAH VILLA Rep #:[id number] : 1945 79 From: Asia Dodd DO PCP: PRISCILLA Almanzar Status:ADM I N Location: [place] [address] HPI - General General Date of Admission: 02/17/25 Date of Service: 02/17/25 Chief Complaint: DEBILITY DUE TO R THR HPI Narrative JEREMIAH VILLA, is a 79 M with a PMH of DM II, morbid obesity, suspected BPH, osteoarthritis, chronic renal failure (creat on preop labs was 1.59 with a GFR of 44 which is consistent with stage III 3B chronic renal failure), tobacco dependence in remission and a PE after L hip replacement in the past who underwent a right total hip replacement by Dr. Galindo on 02/14/2025. Post operatively he was somnolent and unarousable. ABG showed a pH of 7.15 with a PCO2 of 84 and a PO2 of 94 on BiPAP (later transitioned to AVAPS). Chest x-ray showed a right upper lobe infiltrate. He was given Lasix in PACU. After about an hour on AVAPS he became arousable and the ABG showed pH of 7.27 with a PCO2 of 60 landon pO2 of 83. He was transferred to the intensive care unit. He was started on Unasyn for suspected aspiration PNA. At some point he was reported tohave had a coffee ground emesis. A CT scan of the abdomen with contrast was done and showed a right perihilar/right lower lobe multifocal pulmonary airsp acedisease/consolidation likely representing pneumonia, chronic right renal atrophy, cholelithiasiswithout evidence of acute cholecystitis, small sliding hiatal hernia, colonic diverticulosis with no evidence of diverticulitis, mild prostatomegaly and moderate diffuse spondylosis. There was no evidence of active bleeding. Consult was ordered with GI. An EGD was done on 02/15/2025 andshowed grade C erosive esophagitis with no bleeding. There were no gross lesions in the entire stomach and no gross lesions in the entire examined duodenum. CT scan of the abdomen showed There was evidence of old blood in the nasopharynx and oropharynx. Creatinine on 02/16/2025 had risen to 2.2 and this was thought to be secondary to intravascular volume depletion and IV contrast. He was hydrated and the creatinine came down to 1.92 on 02/17/2025. He has been retaining urine in the hospital. Tsang catheter wasremoved but, PVR on 02/17/25 was 523 and the Tsang was re-inserted. He was started on Flomax. He takes an herbal prostate supplement at home and denies slow stream and dribbling. He was transferred to the acute inpatient rehab unit at [facility] on 02/17/2025 for 3 hours of therapy daily to restore function/independence at ornear his level prior to the recent hip replacement. He lives alone in a one-story house with a basement. He normally ambulates with a rollator walker. He is independent with his activities of daily living. He is c/o constipation and tells us that he has not had a BM in 1 week. He denies feeling nauseated. He refused breakfast and lunch on 02/17/25. He denies abd pain. He has an occasional cough and denies SOB at rest. He has SIMON. He has not had a fever but, he has been getting Tylenol 1 GM every 6 Hours. White blood cell count has been elevated since 820 on 02/15/2025. Today it is 13.2. Hemoglobin is12.1, down from 15.8 on 02/03/2025. Platelets are normal. [facility] Medical History (Updated 02/17/25 @ 17:[address] Aisa Dodd, ) Degenerative joint disease of left hip Trochanteric bursitis, left hip Tobacco dependence in remission Hiatal hernia with GERD Left lumbar radiculitis Chronic renal failure (CRF), stage 3b Lumbar spondylosis Wears glasses Wears partial dentures Alcohol use Rash Walker as ambulation aid Arthritis High cholesterol Back pain Syncope Dietary restriction Constipation Chewing tobacco use History of pain when walking Hypertension Pulmonary embolism Home Medications ?Medication ?Instructions ?Recorded ?Last Taken ?Type cholecalciferol (vitamin D3) 25 25 mcg PO DAILY SUPPLE MENT 02/07/25 02/17/25 History mcg (1,000 unit) tablet (Vitamin D3) magnesium 250 mg tablet 750 mg PO DAILY SUPPLEMENT 0 02/07/25 02/13/25 History vitamin K2 100 mcg capsule 100 mcg PO DAILY SUPPLEMENT 02/07/25 02/13/25 History Held on 02/17/25. Instructions: MD Ordered acetaminophen 500 mg tablet 1,000 mg (2 x 500 mg) PO Q 6H pain 02/16/25 Unknown Rx Held on 02/17/25. #100 tabs Instructions: MD Ordered apixaban 2.5 mg tablet (Eliquis) 2.5 mg PO BID Blood t hinner #66 02/16/25 Unknown Rx tabs gabapentin 300 mg capsule 300 mg PO TID Nerve pain #90 caps 02/16/25 Unknown Rx oxycodone 5 mg tablet 5 - 10 mg PO Q4H PRN pain Unknown History pantoprazole 40 mg tablet,delayed 40 mg PO BID GERD #0 tabs 02/17/25 02/17/25 Rx release sennosides 8.6 mg-docusate sodium 2 tab PO BID Constip ation #0 tabs 02/17/25 02/17/25 Rx 50 mg tablet (Stimulant Laxative Plus) tamsulosin 0.4 mg capsule 0.4 mg PO DAILY@0830 Urine 0 02/17/25 02/17/25 Rx retention #0 caps Allergy/AdvReac Type Severity Reaction Status Date / Time No Known Allergies Allergy Verified 02/14/25 10:16 Family History (Updated 02/17/25 @ 17:[address] Asia Dodd DO) Son VTE (venous thromboembolism) many family members have had blood clots......possible inherited hypercoagulable disorder. Surgical History (Updated 02/17/25 @ 17:[address] Asia Dodd DO) Status post left hip replacement Hx of right cataract extraction Hx of left cataract extraction Hx of appendectomy History of right hip replacement Social History (Updated 02/17/25 @ 17:[address] Asia Dodd DO) household members: none housing: house number of children: 7 current occupational status: retired Smoking Status: Former smoker Tobacco: How many years used: 35 Smokeless tobacco user: snuff how long ago did patient quit smokin years ago alcohol intake: current alcohol intake frequency: holidays/special occasions only details: has an occasional beer in the summer and a shot of whiskey in the winter. substance use type: does not use Homelessness:: Sheltered ROS Review of Systems ROS Unobtainable: Denies due to encephalopathy, due to endotracheal tube, due tomental condition ordue to mental status Constitutional Constitutional: Reports fatigue and weakness; Denies anorexia, change in weight,chills, fever(s), frequent falls, headache(s) or night sweats Eyes Eyes: Denies blurry vision, change in vision, eye pain or loss of vision ENT HEENT: Denies abnormal hearing, dysphagia, headache(s), hearing loss, nasal congestion or sore throat Cardiovascular Cardiovascular: Reports dyspnea on exertion; Denies chest pain, edema, lightheadedness, orthopnea, palpitations, paroxysmal nocturnal dyspnea or syncope Respiratory/Chest Respiratory/Chest: Reports cough and shortness of breath with exertion; Denies dyspnea, pain on inspiration, portable oxygen @ home, shortness of breath at rest or wheezing Gastrointestinal Gastrointestinal: Reports constipation and other Details: had emesis while in the ICU following surgery ; Denies abdominal pain, diarrhea, dyspepsia, dysphagia, early satiety, fecal incontinence, hematemesis, hematochezia, nausea or vomiting Genitourinary Genitourinary: Reports other Details: urine retention in the hospital requiring insertion of a tsang catheter. ; Denies dysuria, hematuria, nocturia, urinary frequency, urinary hesitancy, urinary incontinence or urinary urgency Musculoskeletal Musculoskeletal: Reports back pain, difficulty walking and joint pain; Denies joint swelling, neck pain or radiating pain into limb Neurologic Neurologic: Denies confusion, disequilibrium, dizziness, focal weakness, headache(s), paresthesias,seizures or tremor(s) Psychiatric Psychiatric: Denies anxiety, depression, homicidal ideation or suicidal ideation Endocrine Endocrinology: Reports other Details: he has lost his sense of thirst and knows that he does not drink enough fluids. ; Denies change in body appearance, polydipsia or polyuria Hematologic/Lymphatic Hematologic/Lymphatic: Denies easy bleeding, easy bruising or lymphadenopathy Allergic/Immunologic Allergic/Immunologic: Reports other Details: he has a chronic rash on the RLE over the mid anteriortibia ; Denies rhinitis, eczemia or asthma Vital Signs Vital Signs Vital Signs: 02/17/25 15:31 Temperature 98.2 F Temperature Source Oral Pulse Rate 97 Respiratory Rate 16 Blood Pressure 140/73 H Blood Pressure Mean 95 Blood Pressure Source Monitor Blood Pressure Position Semi-Fowlers Blood Pressure Location Right Arm Pulse Ox 98 Oxygen Delivery Method Room Air Weight Weight: 270 lb 9 oz Body Mass Index (BMI) 37.7 Physical Exam Const alert, oriented x3 and no apparent distress General Appearance: cooperative and well kempt HEENT HEENT Narrative: VERY dry MM. No evidence of thrush Eyes PERRL, EOMs intact bilaterally, conjunctivae normal and no scleral icterus Eyes Narrative: No discharge from the eyes and no mattering of the eyelashes. No visual field cuts. No nystagmus. Smooth pursuit. Neck supple, No nodes and no carotid bruits General: trachea midline Chest Chest: symmetrical chest wall rise Resp Resp Narrative: Some coarse crackles in the mid upper right lung posteriorly. No wheezing. Nottachypneic. No conversational dyspnea. Effort and Inspection: able to speak in complete sentences Cardio regular rhythm, no murmurs, no rub and no gallops Cardio Narrative: Increased resting heart rate. No ectopy. GI GI Narrative: Obese, soft, ND, normal BS's, no guarding with palpation. no CVA tenderness Bladder / Kidney Exam: catheter in place urethral (urine in the Tsang bag is dark alber. ) Extremity no calf tenderness Extremity Narrative: he has pitting edema of the feet and ankles.......no TEDS in place. Skin Skin Narrative: He has a area of dry, scaley, hyperpigmented skin on the distal anterior R leg at about mid tibia. Neuro oriented x3, CN's II-XII intact bilaterally, moves all extremities and no focal motor deficits Psych mental status grossly normal, thought process normal, cooperative, affect normaland speech normal; Negative for denies hallucinations, denies homicidal ideationor denies suicidal ideation Appearance: grossly normal, appropriate and well kempt Attitude: calm and engaged Activity / Motor Behavior: appropriate eye contact Assessment & Plan Assessment/Plan (1) Physical debility: (2) Status post left hip replacement: (3) Other acute postprocedural pain: (4) Acute blood loss as cause of postoperative anemia: (5) Acute hypercapnic respiratory failure: (6) Coffee ground emesis: (7) Erosive esophagitis: (8) Aspiration pneumonia: QUALIFIERS: Aspiration pneumonia type: due to gastric secretions Laterality: right Lung location: unspecified part of lung Qualified Code(s): J69.0 - Pneumonitis due to inhalation of food and vomit (9) Acute renal failure superimposed on stage 3 chronic kidney disease: QUALIFIERS: Acute renal failure type: unspecified Chronic kidney disease stage 3 subtype: stage 3b (GFR 30-44) Qualified Code(s): N17.9 - Acute kidney failure, unspecified; N18.32 - Chronic kidney disease, stage 3b (10) Dehydration: (11) Urine retention: (12) BPH (benign prostatic hyperplasia): QUALIFIERS: Lower urinary tract symptom presence: symptoms present Lower urinary tract symptom detail: urinary retention Qualified Code(s): N40.1- Benign prostatic hyperplasia with lower urinary tract symptoms; R33.8 - Other retention of urine (13) Enlarged prostate: (14) Diabetes mellitus, type 2: QUALIFIERS: Diabetes mellitus transcription insulin use: without [place] [facility] use Diabetes mellitus complication status: with kidney complications (15) Chronic renal failure (CRF), stage 3b: (16) Hiatal hernia with GERD: (17) Morbid obesity: (18) KATHERINE (obstructive sleep apnea): (19) Pulmonary embolism: QUALIFIERS: Pulmonary embolism type: unspecified Chronicity: unspecified Acute cor pulmonale presence: unspecified Qualified Code(s): I26.99 - Other pulmonary embolism without acute cor pulmonale PLAN: 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 Galindo following DC from IP Rehab AM lab including CMP, CBC, Mag, lipid panel and Phos KUB PA and lateral chest x-ray Decrease gabapentin to 100 mg 3 times daily due to age and chronic kidney disease with acute exacerbation. Flomax has been started-voiding trial after 5 doses Orthostatic vital signs Normal saline at 125 cc/h x 2 L then discontinue Start Unasyn 1.5 g IV every 6 hours for aspiration pneumonia Urine culture Overnight trending pulse ox 70 minutes spent reviewing past diagnostic tests, lab results, vital sign trends, medical history, medications, all additional paperwork sent by the previous hospital, and ordering medications, examining the the patient and completing documentation. Charges/Coding Visit Charges Inpatient E&M: 11066 Init Hosp L3 02/17/251753 Cosigner Signature (if applicable): CC: Dr. Rasheed Galindo DO; Dr. Asia Dodd DO; PRISCILLA Almanzar~ Signed ADDENDUM by Dr. Asia Dodd DO on 02/17/25 at 1757 Addendum The chest x-ray was reviewed and shows right upper lobe infiltrate and right perihilar infiltrate. There are no pleural effusions. Heart is of normal size. The KUB shows fecal retention, especially in the sigmoid and rectal areas. Stool softeners have been ordered and will give a Dulcolax suppository or an enema tonight. If this is not effective we willlikely give oral laxatives as well. Patient was encouraged to increase his fluid intake. Continue to hold glipizide due to acute on chronic renal failure will check Accu-Cheks AC and at bedtime and use sliding scale insulin coverage. Adjust thesliding scale as needed. 02/17/251756 Cosigner Signature (if applicable): cc: Dr. Rasheed Galindo DO; Dr. Asia Dodd DO; PRISCILLA Almanzar ~* Signed [facility]06-20-2025 Radiology Diagnostic study note [facility] Imaging Services [address] [place] [address] Chest PA and Lateral MR#: [id number] Acct: [id number] Name: JEREMIAH VILLA Rep #: [id number] : 1945 M 79 From: Ophelia Merchant MD PCP: PRISCILLA Almanzar Status: ADM I N Study:Chest PA and Lateral Date of Exam: 02/17/25 Exam# [id number] Ordering Dr: Asia Dodd DO EXAM: XR Chest, 2 Views CLINICAL INDICATION: ASPIRATION PNA TECHNIQUE: Frontal and lateral views of the chest. COMPARISON: No relevant prior studies available. FINDINGS: LUNGS AND PLEURAL SPACES: Patchy airspace disease of the right upper lobe, likely pneumonia. No pneumothorax. HEART: Unremarkable. No cardiomegaly. MEDIASTINUM: Unremarkable. Normal mediastinal contour. BONES/JOINTS: Unremarkable. No acute fracture. RAD/Chest PA and Lateral IMPRESSION: Patchy airspace disease of the right upper lobe, likely pneumonia. Reading Location: [facility] CC: Dr. Asia Dodd DO; PRISCILLA Almanzar ~ Referral Clerk: Signed [facility]06-20-2025 Radiology Diagnostic study note [facility] Imaging Services [address] [place] [id number] Abdomen Single View MR#: [id number] Acct: [id number] Name: JEREMIAH VILLA Rep #: [id number] : 1945 M 79 From: Ophelia Merchant MD PCP: PRISCILLA Almanzar Status: ADM I N Study:Abdomen Single View Date of Exam: 02/17/25 Exam# [id number] Ordering Dr: Asia Dodd DO EXAM: XR Abdomen, 1 View CLINICAL INDICATION: CONSTIPATION TECHNIQUE: Frontal supine view of the abdomen/pelvis. COMPARISON: No relevant prior studies available. FINDINGS: GASTROINTESTINAL TRACT: Fecal retention in the colon consistent with constipation. No dilation. BONES/JOINTS: Unremarkable. No acute fracture. RAD/Abdomen Single View IMPRESSION: Fecal retention in the colon consistent with constipation. Reading Location: [facility] CC: Dr. Asia Dodd DO; PRISCILLA Almanzar ~ Referral Clerk: Signed [facility]06-20-2025 [facility]06-20-2025 Progress note Author Rasheed Galindo [facility] Note Date/Time February 17, 2025 12:2 5pm [facility] Medical Records Department [address] [place] [address] Progress Note - Orthopedic 02/17/25 1224 MR#: [id number] Acct: [id number] Name: JEREMIAH VILLA Rep #:[id number] : 1945 79 From: Rasheed Galindo DO PCP: PRISCILLA Almanzar Status:ADM I N Location: [facility] [place] [id number] Subjective Subjective Patient seen and examined. He is sitting in a chair eating his lunch comfortably. He states that as long as he stays on top of his pain medication he is doing fine he denies any other complaints or concerns. Objective Data Objective Data Vital Signs: Vital Signs Temp Pulse Resp BP Pulse Ox O2 Del Method O2 Flow Rate 98.3 F 92 16 132/57 H 95 Room Air 2 02/17/25 10:15 02/17/25 10:15 02/17/25 10:15 02/17/25 10:15 02/17/25 10:15 02/17/25 10:15 02/16/25 07:05 FiO2 30 02/15/25 12:39 Oxygen Flow Rate (L/min) 2 Oxygen Delivery Method Room Air Weight: 272 lb 14.916 oz Body Mass Index (BMI) 38.2 Intake & Output: Intake and Output for Last 24 Hours 02/15/25 02/16/25 02/17/25 23:59 23:59 23:59 Intake Total 555.5 / 555.5 720 / 720 1100 / 1100 Output Total 750 / 1000 1625 / 1625 875 / 875 Balance -194.5 / -444.5 -905 / -905 225 / 225 Lab / Micro Data 02/17/25 08:22 02/17/25 08:22 Labs: Laboratory Results - last 24 hr 02/16/25 16:28: POC Glucose 258 H 02/16/25 21:35: POC Glucose 179 H 02/17/25 06:34: POC Glucose 79 02/17/25 08:22: WBC 13.2 H, RBC 3.85 L, Hgb 12.1 L, Hct 35.8 L, MCV 93.0, MCH 31.4, MCHC 33.8, RDW Std Deviation 46.6 H, RDW Coeff of Sherry 13.6, Plt Count 227,MPV 9.4, Immature Gran % (Auto) 1.100 H, Neut % (Auto) 69.0, Lymph % (Auto) 18.9L, [place] % (Auto) 8.4, Eos % (Auto) 2.2, Baso % (Auto) 0.4, Absolute Neuts (auto)9.1 H, Absolute Lymphs (auto) 2.49, Nucleated RBC % 0, Sodium 137, Potassium 4.0, Chloride 102, Carbon Dioxide 26.1, Anion Gap 9, BUN 29 H, Creatinine 1.92 H, Estim Creat Clear Calc 42.47 L, Est GFR (MDRD) Non-Af 35 L, BUN/Creatinine Ratio 15.3, Glucose 72, Calcium 8.7 02/17/25 11:01: POC Glucose 209 H Micro: Microbiology 02/15/25 02:40 Vomitus Gastric Occult Blood - Final Occult Blood Positive Physical Exam Const alert, oriented x3 and no apparent distress General Appearance: cooperative Extremity Extremity Narrative: Left hip dressing clean dry intact compartments soft neurovascular intact, palpable pedal pulse intact sensation light touch Assessment & Plan Assessment/Plan (1) Left lumbar radiculitis: (2) Status post left hip replacement: (3) Acute hypercapnic respiratory failure: (4) Coffee ground emesis: PLAN: Plan Postop day #3 left total hip arthroplasty PT OT weightbearing as tolerated Patient is not moving around very well yet will likely require rehab waiting on bed for Thursday Patient is haves having significant left lower extremity radiculitis he does have known lumbar spondylosis. Started on gabapentin titrating to 2 pills today and 3 pills tomorrow and after Awaiting discharge to rehab He has resumed his Eliquis and he needs to continue this for 35 days postoperatively with his history of DVT PE. He will need to follow-up in the office 2 weeks 02/17/25 1228 <Electronically signed by Rasheed Galindo DO> Cosigner Signature (if applicable): CC: ~ Signed [facility] Work Phone: 1(215) 690-659706-20-2025 Progress note Author Shraddha Gamez [facility] Note Date/Time February 17, 2025 1:17 pm [facility] Medical Records Department [address] [place] [address] Progress Note - Hospitalist 02/17/25 1205 MR#: [id number] Acct: [id number] Name: JEREMIAH VILLA Rep #:[id number] : 1945 79 From: Shraddha Gamez MD PCP: PRISCILLA Almanzar Status:ADM I N Location: [place] [address] Reason for Visit Reason for Visit: Diagnoses Type 2 diabetes mellitus without complications (02/14/25) Other acute postprocedural pain (02/14/25) Acute respiratory failure with hypercapnia (02/14/25) Hematemesis (02/14/25) Radiculopathy, lumbar region (02/14/25) Encounter for other preprocedural examination (02/14/25) Presence of left artificial hip joint (02/14/25) Subjective Subjective Patient continues to have pain in his hip but otherwise with no acute complaints, does not like the food here but not having any abdominal pain or nausea although has not had a bowel movement in several days, Tsang was removed but he was retaining so this was replaced. Objective Data Objective Data Vital Signs: Vital Signs Temp Pulse Resp BP Pulse Ox O2 Del Method O2 Flow Rate 98.3 F 92 16 132/57 H 95 Room Air 2 02/17/25 10:15 02/17/25 10:15 02/17/25 10:15 02/17/25 10:15 02/17/25 10:15 02/17/25 10:15 02/16/25 07:05 FiO2 30 02/15/25 12:39 Oxygen Flow Rate (L/min) 2 Oxygen Delivery Method Room Air Weight: 123.8 kg Body Mass Index (BMI) 38.2 Intake & Output: Intake and Output for Last 24 Hours 02/15/25 02/16/25 02/17/25 23:59 23:59 23:59 Intake Total 555.5 / 555.5 720 / 720 1100 / 1100 Output Total 750 / 1000 1625 / 1625 875 / 875 Balance -194.5 / -444.5 -905 / -905 225 / 225 Lab / Micro Data 02/17/25 08:22 02/17/25 08:22 Labs: Laboratory Results - last 24 hr 02/16/25 16:28: POC Glucose 258 H 02/16/25 21:35: POC Glucose 179 H 02/17/25 06:34: POC Glucose 79 02/17/25 08:22: WBC 13.2 H, RBC 3.85 L, Hgb 12.1 L, Hct 35.8 L, MCV 93.0, MCH 31.4, MCHC 33.8, RDW Std Deviation 46.6 H, RDW Coeff of Sherry 13.6, Plt Count 227,MPV 9.4, Immature Gran % (Auto) 1.100 H, Neut % (Auto) 69.0, Lymph % (Auto) 18.9L, [place] % (Auto) 8.4, Eos % (Auto) 2.2, Baso % (Auto) 0.4, Absolute Neuts (auto)9.1 H, Absolute Lymphs (auto) 2.49, Nucleated RBC % 0, Sodium 137, Potassium 4.0, Chloride 102, Carbon Dioxide 26.1, Anion Gap 9, BUN 29 H, Creatinine 1.92 H, Estim Creat Clear Calc 42.47 L, Est GFR (MDRD) Non-Af 35 L, BUN/Creatinine Ratio 15.3, Glucose 72, Calcium 8.7 02/17/25 11:01: POC Glucose 209 H Micro: Microbiology 02/15/25 02:40 Vomitus Gastric Occult Blood - Final Occult Blood Positive Physical Exam Narrative General: Alert, no apparent distress HEENT: Atraumatic, normocephalic Eyes: Anicteric, normal conjunctiva, extraocular movements grossly intact Neck: Supple Respiratory: Clear to auscultation bilaterally, normal respiratory effort Cardiovascular: Regular rate and rhythm GI: No significant distention, nontender, no rebound, guarding Extremities: No significant lower extremity edema Musculoskeletal: Moving all extremities but left hip Neuro: No overt focal neurological deficits Skin: No rashes appreciated Psych: Cooperative Assessment & Plan Assessment/Plan (1) Acute hypercapnic respiratory failure: (2) Coffee ground emesis: (3) Status post left hip replacement: (4) Diabetes: PLAN: Plan 79-year-old male history of diabetes and hypertension presented to [facility] 02/14/2025 for planned left hip replacement, postoperatively patient found to have hypercapnic respiratory failure and was admitted to the ICU on AVAPS, medicine consulted for postop medical management and patient's hypercapnic respiratory failure. # Coffee-ground emesis-found to have erosive esophagitis - patient with episode of emesis overnight, reportedly coffee-ground appearance and gastric occult positive - patient was made n.p.o. and started on Protonix drip with GI consult - CT abdomen with contrast demonstrated mild gastritis - Patient underwent upper endoscopy 02/15/2025 w/ LA grade C erosive esophagitis w/ no bleeding and with old blood in oropharynx and nasopharynx -Pt to resume diet and is resuming Eliquis tonight -02/16: Hemoglobin stable, given his erosive esophagitis and especially given hisneed for Eliquis postoperatively will have patient on p.o. PPI -02/17: Recommend patient be discharged on Protonix 40 mg twice daily especially while on Eliquis given his reflux esophagitis #L total hip arthroplasty - with Dr. Galindo 02/14/2025 - management/pain management per patient's surgery team -02/16: Management per primary, patient to go to SNF possibly tomorrow -02/17: Plan for med rehab today #Likely CKD stage IIIb - kidney function earlier this month with creatinine of 1.59, today slightly up to 1.76 - does not meet criteria for UTI - avoid nephrotoxic agents, will hold lisinopril given blood pressure and the uptrending creatinine - Patient did receive contrasted CT scan, given his need for Lasix postoperatively we will hold off on significant IV fluid bolus - Repeat in the a.m. -02/16: Patient has had further uptrend in creatinine, suspect this is in part due to IV contrast in setting of CKD, will give gentle IV fluid hydration and recheck in a.m. if stable or improving will likely be fine to go to SNF, if not we will need to consider nephro involvement -02/17: Kidney function has improved further, per patient baseline around 1.3, would benefit from a BMP 2 to 3 days to reassess, would recommend continue to hold lisinopril #Type 2 diabetes mellitus -Glucose checks and sliding scale insulin - Will hold home glipizide during acute hospitalization -02/16: A.m. glucose 180, has had pretty significant variations in glucose, will likely go back on glipizide on DC, presently on sliding scale insulin -02/17: May benefit from continuing sliding scale insulin in the short-term untilkidney function is back to baseline (per patient 1.3) given glipizide is renallyexcreted #Hypertension - BP slightly on the lower side so holding antihypertensives -02/16: Blood pressure somewhat improving but still quite variable, blood pressure currently reasonable, will hold off on adding back antihypertensives atthis time unless blood pressure becomes more hypertensive -02/17: Recommending to continue to hold lisinopril given kidney function # Urinary retention -02/17: Tsang removed but then had to be replaced due to urinary retention, patient has had some constipation, bowel regimen, tamsulosin started, UA with some leuk esterase but minimal white blood cells and very rare bacteria, lower suspicion for UTI so holding off on empiric antibiotics at this time, urine culture was sent Chronic medical problems and/or problems not being actively addressed during today's encounter: # acute hypercapnic respiratory failure?resolved - postoperatively patient with pCO2 in the 80s with pH of 7.15, initially placedon BiPAP and later changed to AVAPS. Chest x-ray with mild vascular congestion and right upper lobe infiltrate with possible pneumonia -Patient without any productive cough or elevated white blood cell count or other signs or symptoms that would suggest patient has pneumonia, this seems to be more likely related to sedation with anesthesia and possible untreated sleep apnea so holding off on empiric antibiotics -May need to consider repeat imaging in the future to verify improvement/resolution - patient's respiratory status improved with AVAPS - there is concern for undiagnosed sleep apnea by anesthesiologist, patient doesnot need acutely seen by fitness floor attendant due to improvement but would benefit from outpatient follow-up for possible sleep study/further workup and management -02/16: Respiratory status stable this a.m. with patient 98% on room air #DVT ppx:rogers Gamez MD Time spent in the patient's overall evaluation,decision-making process, review of diagnostic data, adjustment of management, discussion with other providers, nursing nursing and ancillary staff involved in patient's care documentation, 40Minutes Charges/Coding Visit Charges Inpatient E&M: 14571 Subs Hosp L2 02/17/25 1317 <Electronically signed by Shraddha Gamez MD> Cosigner Signature (if applicable): CC: ~ Signed [facility] Work Phone: [phone] 608-941306-20-2025 Discharge summary [facility] Medical Records Department [address] [place] [address] Transfer to Extended Care MR#: [id number] Acct: [id number] Name: JEREMIAH VILLA Rep #:[id number] : 1945 79 From: Rasheed Galindo DO PCP: PRISCILLA Almanzar Status:ADM I N Certification of patient admission REQUIRED AT TIME OF ADMISSION. I CERTIFY THAT POST-HOSPITAL ECF SERVICES ARE REQUIRED TO BE GIVEN ON AN IN-PATIENT BASIS BECAUSE OF THE ABOVE NAMED PATIENT'S NEED FOR LONG-TERM CARE ON A CONTINUING BASIS FOR THE CONDITION(S) FOR WHICH HE/SHE WAS RECEIVING IN-PATIENT HOSPITAL SERVICES PRIOR TO HIS/HER TRANSFER TO THE ECF. 02/16/25 0652 Diet Diet Order/Speech Therapy: INPATIENT Hospital Diet / Speech Therapy Order(s) 02/15/25 14:43 Diet: Carbohydrate Controlled Diet Comments: Meds whole in applesauce 1 at a time, distant sup DC O2, CPAP, BIPAP needs Home O2 Discharge instructions: No Wound(s) LEFT LOWER ABDOMEN: Wound Type: Surgical Incision LEFT HIP, LATERAL: Wound Type: Surgical Incision Therapies Weight Bearing: Full weight bearing Extremity Affected:: Bilateral Lower Problem/Diagnosis (1) Left lumbar radiculitis: Status: Acute Code(s): M54.16 - Radiculopathy, lumbar region (2) Status post left hip replacement: Status: Acute Code(s): Z96.642 - Presence of left artificial hip joint (3) Acute hypercapnic respiratory failure: Status: Acute Code(s): J96.02 - Acute respiratory failure with hypercapnia (4) Coffee ground emesis: Status: Acute Code(s): K92.0 - Hematemesis Plan Postop day #2 left total hip arthroplasty PT OT weightbearing as tolerated Patient is not moving around very well yet will likely require rehab waiting on bed for Thursday Patient is haves having significant left lower extremity radiculitis he does have known lumbar spondylosis. I will start him on gabapentin 300 mg he will be titrated up over the next 3 days. Awaiting discharge to rehab tomorrow He has resumed his Eliquis and he needs to continue this for 35 days postoperatively with his history of DVT PE. He will need to follow-up in the office 2 weeks if he is still at [facility] rehab i can see him there (please notify me) Allergies/Procedures Done in Hospital Allergies No Known Allergies Allergy (Verified 02/14/25 10:16) Type of Care/Length of Stay Estimated LOS: Convalescent Care Less Than 30 days Type of Care Needed: Skilled Rehab Potential: Good Prognosis: Good Additional Orders/Day of Discharge Day of Discharge: 02/17/25 Dietary and Speech Recommendations Dietitian Recommendations/Changes: Recommend CCD diet when medically able to manage blood sugars. Recommend 237mL Ensure Surgery BID when diet advances >clear liquid diet. Follow Up Care Please Follow Up With: Rasheed Galindo DO Discharge Plan Admission Admit Date/Time: 02/14/25 13:33 Primary Reason for Your Visit: Left total hip arthroplasty Attending Provider: Rasheed Galindo Primary Care Provider: Kerwin Hugo Consulting Providers: Shraddha Gamez; Yomi Dempsey Discharge Orders/Prescriptions Prescriptions: New acetaminophen 500 mg tablet 1,000 mg PO Q6H Qty: 100 0RF Eliquis 2.5 mg tablet 2.5 mg PO BID Qty: 66 0RF oxycodone 5 mg tablet 5 - 10 mg PO Q4H PRN (Reason: pain) 7 Days Qty: 60 0RF gabapentin 300 mg capsule 300 mg PO TID Qty: 90 0RF Continued glipizide 5 mg tablet 5 mg PO BID lisinopril 5 mg tablet 5 mg PO BID vitamin K2 100 mcg capsule 100 mcg PO DAILY cholecalciferol (vitamin D3) [Vitamin D3] 25 mcg (1,000 unit) tablet 25 mcg PO DAILY Prostate Health 160-100-100 mg-unit-mcg tablet 2 tab PO TID C Complex 1,000 mg tablet extended release 2,000 mg PO DAILY magnesium 250 mg tablet 750 mg PO DAILY Referrals / Follow Up: Tess Hernandez MD [Non-Staff] - Disposition Disposition (needs filled in before D/C Order can be placed): Inpatient Rehab Unit/Facility 02/16/25 0652 Cosigner Signature (if applicable): CC: Dr. Yomi Dempsey DO; Dr. Shraddha Gamez MD; PRISCILLA Almanzar ~ ADDENDUM by Dr. Shraddha Gamez MD on 02/17/25 at 1318 Addendum INTERNAL MEDICINE RECOMMENDATIONS ON DISCHARGE: -Recommend patient be discharged on Protonix 40 mg twice daily especially while on Eliquis given his reflux esophagitis -Kidney function has improved further, per patient baseline around 1.3, would benefit from a BMP 2 to 3 days to reassess, would recommend continue to hold lisinopril -May benefit from continuing sliding scale insulin in the short-term until kidney function is back to baseline (per patient 1.3) given glipizide is renallyexcreted -Recommending to continue to hold lisinopril given kidney function -Tsang removed but then had to be replaced due to urinary retention, patient hashad some constipation, bowel regimen, tamsulosin started, UA with some leuk esterase but minimal white blood cells and very rare bacteria, lower suspicion for UTI so holding off on empiric antibiotics at this time, urine culture was sent 02/17/25 1318 cc: Dr. Yomi Dempsey DO; Dr. Shraddha Gamez MD; PRISCILLA Almanzar ~* Signed [facility]06-20-2025 Discharge summary [facility] Medical Records Department [address] [place] [address] Instructions for Home/Discharge Instructions 02/16/25 0642 MR#: [id number] Acct: [id number] Name: JEREMIAH VILLA Rep #:[id number] : 1945 79 From: Rasheed Galindo DO PCP: PRISCILLA Almanzar Status:ADM I N Discharge Instructions Diet Discharge Diet: 2000 Calorie Control Diet DC O2, CPAP, BIPAP needs Home O2 Discharge instructions: No Dressing / Incision Weight Bearing Status: Weight bearing as tolerated Dressing / Incision Call your doctor if you observe: Shortness of breath and Chest pain Additional Dressing/Incision Instructions:: Do not shower for 5 days. May Begin daily showering with warm water antibacterial soap postop day #5 and then daily. Leave the dressing on for 5 days postoperatively then remove prior to first shower and change dressing daily after this until no drainage for 2 consecutive days then may leave open to air. If you decide not shower and wish to sponge bath only, then may leave dressing undisturbed for up to 1 week, but must remove prior to first shower. Do not submerge for 3 weeks. If not showering dailyafter the initial dressing is removed you must clean incision and change dressing daily after the dressing comes off, must come off by 7 days postop. Do not allow animals near the incision area. Keepclean. Follow hip precautions that were reviewed in hospital. Wear compression stockings, may remove at night. Start physical therapy as directed in hospital. Follow prescriptions instructions do not take any other pain medication or differ dosing without consulting your physician. Do not take oral NSAIDsuntil blood thinner has been completed , then may begin the day after completion if needed . Patient needs to be on Eliquis for [address] Galindo'chandlerfiserena with any concerns. Follow Up Care Please Follow Up With: Rasheed Galindo DO When: 2 weeks Test Results: Test results from this visit will be discussed in further detail at your follow- up appointment, if applicable. Discharge Plan Admission Admit Date/Time: 02/14/25 13:33 Primary Reason for Your Visit: Left total hip arthroplasty Attending Provider: Rasheed Galindo Primary Care Provider: Kerwin Hugo Consulting Providers: Shraddha Gamez; Yomi Dempsey Discharge Orders/Prescriptions Prescriptions: New acetaminophen 500 mg tablet 1,000 mg PO Q6H Qty: 100 0RF Eliquis 2.5 mg tablet 2.5 mg PO BID Qty: 66 0RF oxycodone 5 mg tablet 5 - 10 mg PO Q4H PRN (Reason: pain) 7 Days Qty: 60 0RF gabapentin 300 mg capsule 300 mg PO TID Qty: 90 0RF Continued glipizide 5 mg tablet 5 mg PO BID lisinopril 5 mg tablet 5 mg PO BID vitamin K2 100 mcg capsule 100 mcg PO DAILY cholecalciferol (vitamin D3) [Vitamin D3] 25 mcg (1,000 unit) tablet 25 mcg PO DAILY Prostate Health 160-100-100 mg-unit-mcg tablet 2 tab PO TID C Complex 1,000 mg tablet extended release 2,000 mg PO DAILY magnesium 250 mg tablet 750 mg PO DAILY Referrals / Follow Up: Tess Hernandez MD [Non-Staff] - Disposition Disposition (needs filled in before D/C Order can be placed): Inpatient Rehab Unit/Facility 02/16/25 0651Joseph Josie VENTURA CC: Dr. Yomi Dempsey DO; Dr. Shraddha Gamez MD; PRISCILLA Almanzar ~ Signed ADDENDUM by Dr. Shraddha Gamez MD on 02/17/25 at 1317 -Recommend patient be discharged on Protonix 40 mg twice daily especially while on Eliquis given his reflux esophagitis -Kidney function has improved further, per patient baseline around 1.3, would benefit from a BMP 2 to 3 days to reassess, would recommend continue to hold lisinopril -May benefit from continuing sliding scale insulin in the short-term until kidney function is back to baseline (per patient 1.3) given glipizide is renallyexcreted -Recommending to continue to hold lisinopril given kidney function -Tsang removed but then had to be replaced due to urinary retention, patient hashad some constipation, bowel regimen, tamsulosin started, UA with some leuk esterase but minimal white blood cells and very rare bacteria, lower suspicion for UTI so holding off on empiric antibiotics at this time, urine culture was sent 02/17/25 1317Shraddha Gamez MD cc: Dr. Yomi Dempsey DO; Dr. Shraddha Gamez MD; PRISCILLA Almanzar ~* Signed [facility]06-20-2025 Progress note [facility] Medical Records Department [address] [place] [address] Progress Note - Hospitalist 02/17/25 1205 MR#: [id number] Acct: [id number] Name: JEREMIAH VILLA Rep #:[id number] : 1945 79 From: Shraddha Gamez MD PCP: PRISCILLA Almanzar Status:ADM I N Location: [place] [address] Reason for Visit Reason for Visit: Diagnoses Type 2 diabetes mellitus without complications (02/14/25) Other acute postprocedural pain (02/14/25) Acute respiratory failure with hypercapnia (02/14/25) Hematemesis (02/14/25) Radiculopathy, lumbar region (02/14/25) Encounter for other preprocedural examination (02/14/25) Presence of left artificial hip joint (02/14/25) Subjective Subjective Patient continues to have pain in his hip but otherwise with no acute complaints, does not like thefood here but not having any abdominal pain or nausea although has not had a bowel movement in several days, Tsang was removed but he was retaining so this was replaced. Objective Data Objective Data Vital Signs: Vital Signs Temp Pulse Resp BP Pulse Ox O2 Del Method O2 Flow Rate 98.3 F 92 16 132/57 H 95 Room Air 2 02/17/25 10:15 02/17/25 10:15 02/17/25 10:15 02/17/25 10:15 02/17/25 10:15 02/17/25 10:15 02/16/25 07:05 FiO2 30 02/15/25 12:39 Oxygen Flow Rate (L/min) 2 Oxygen Delivery Method Room Air Weight: 123.8 kg Body Mass Index (BMI) 38.2 Intake & Output: Intake and Output for Last 24 Hours 02/15/25 02/16/25 02/17/25 23:59 23:59 23:59 Intake Total 555.5 / 555.5 720 / 720 1100 / 1100 Output Total 750 / 1000 1625 / 1625 875 / 875 Balance -194.5 / -444.5 -905 / -905 225 / 225 Lab / Micro Data 02/17/25 08:22 02/17/25 08:22 Labs: Laboratory Results - last 24 hr 02/16/25 16:28: POC Glucose 258 H 02/16/25 21:35: POC Glucose 179 H 02/17/25 06:34: POC Glucose 79 02/17/25 08:22: WBC 13.2 H, RBC 3.85 L, Hgb 12.1 L, Hct 35.8 L, MCV 93.0, MCH 31.4, MCHC 33.8, RDW Std Deviation 46.6 H, RDW Coeff of Sherry 13.6, Plt Count 227,MPV 9.4, Immature Gran % (Auto) 1.100 H, Neut % (Auto) 69.0, Lymph % (Auto) 18.9L, [place] % (Auto) 8.4, Eos % (Auto) 2.2, Baso % (Auto) 0.4, Absolute Neuts (auto)9.1 H, Absolute Lymphs (auto) 2.49, Nucleated RBC % 0, Sodium 137, Potassium 4.0,Chloride 102, Carbon Dioxide 26.1, Anion Gap 9, BUN 29 H, Creatinine 1.92 H, Estim Creat Clear Calc42.47 L, Est GFR (MDRD) Non-Af 35 L, BUN/Creatinine Ratio 15.3, Glucose 72, Calcium 8.7 02/17/25 11:01: POC Glucose 209 H Micro: Microbiology 02/15/25 02:40 Vomitus Gastric Occult Blood - Final Occult Blood Positive Physical Exam Narrative General: Alert, no apparent distress HEENT: Atraumatic, normocephalic Eyes: Anicteric, normal conjunctiva, extraocular movements grossly intact Neck: Supple Respiratory: Clear to auscultation bilaterally, normal respiratory effort Cardiovascular: Regular rate and rhythm GI: No significant distention, nontender, no rebound, guarding Extremities: No significant lower extremity edema Musculoskeletal: Moving all extremities but left hip Neuro: No overt focal neurological deficits Skin: No rashes appreciated Psych: Cooperative Assessment & Plan Assessment/Plan (1) Acute hypercapnic respiratory failure: (2) Coffee ground emesis: (3) Status post left hip replacement: (4) Diabetes: PLAN: Plan 79-year-old male history of diabetes and hypertension presented to [facility] 02/14/2025 for planned left hip replacement, postoperatively patient found to have hypercapnic respiratoryfailure and was admitted to the ICU on AVAPS, medicine consulted for postop medical management and patient's hypercapnic respiratory failure. # Coffee-ground emesis-found to have erosive esophagitis - patient with episode of emesis overnight, reportedly coffee-ground appearance and gastric occult positive - patient was made n.p.o. and started on Protonix drip with GI consult - CT abdomen with contrast demonstrated mild gastritis - Patient underwent upper endoscopy 02/15/2025 w/ LA grade C erosive esophagitis w/ no bleeding and with old blood in oropharynx and nasopharynx -Pt to resume diet and is resuming Eliquis tonight -02/16: Hemoglobin stable, given his erosive esophagitis and especially given hisneed for Eliquis postoperatively will have patient on p.o. PPI -02/17: Recommend patient be discharged on Protonix 40 mg twice daily especially while on Eliquis given his reflux esophagitis #L total hip arthroplasty - with Dr. 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 -02/16: Patient has had further uptrend in creatinine, suspect this is in part due to IV contrast insetting of CKD, will give gentle IV fluid hydration and recheck in a.m. if stable or improving willlikely be fine to go to SNF, if not we will need to consider nephro involvement -02/17: Kidney function has improved further, per patient baseline around 1.3, would benefit from a BMP 2 to 3 days to reassess, would recommend continue to hold lisinopril #Type 2 diabetes mellitus -Glucose checks and sliding scale insulin - Will hold home glipizide during acute hospitalization -02/16: A.m. glucose 180, has had pretty significant variations in glucose, will likely go back on glipizide on DC, presently on sliding scale insulin -02/17: May benefit from continuing sliding scale insulin in the short-term untilkidney function is back to baseline (per patient 1.3) given glipizide is renallyexcreted #Hypertension - BP slightly on the lower side so holding antihypertensives -02/16: Blood pressure somewhat improving but still quite variable, blood pressure currently reasonable, will hold off on adding back antihypertensives atthis time unless blood pressure becomes more hypertensive -02/17: Recommending to continue to hold lisinopril given kidney function # Urinary retention -02/17: Tsang removed but then had to be replaced due to urinary retention, patient has had some constipation, bowel regimen, tamsulosin started, UA with some leuk esterase but minimal white blood cells and very rare bacteria, lower suspicion for UTI so holding off on empiric antibiotics at this time, urine culture was sent Chronic medical problems and/or problems not being actively addressed during today's encounter: # acute hypercapnic respiratory failure?resolved - postoperatively patient with pCO2 in the 80s with pH of 7.15, initially placedon BiPAP and later changed to AVAPS. Chest x-ray with mild vascular congestion and right upper lobe infiltrate with possible pneumonia -Patient without any productive cough or elevated white blood cell count or other signs or symptomsthat would suggest patient has pneumonia, this seems to be more likely related to sedation with anesthesia and possible untreated sleep apnea so holding off on empiric antibiotics -May need to consider repeat imaging in the future to verify improvement/resolution - patient's respiratory status improved with AVAPS - there is concern for undiagnosed sleep apnea by anesthesiologist, patient doesnot need acutely seen by fitness floor attendant due to improvement but would benefit from outpatient follow-up for possible sleep study/further workup and management -02/16: Respiratory status stable this a.m. with patient 98% on room air #DVT ppx:rogers Gamez MD Time spent in the patient's overall evaluation,decision-making process, review of diagnostic data, adjustment of management, discussion with other providers, nursing nursing and ancillary staff involved in patient's care documentation, 40Minutes Charges/Coding Visit Charges Inpatient E&M: 18500 Subs Hosp L2 02/17/25 1317 Cosigner Signature (if applicable): CC: ~ Signed [facility]06-20-2025 Progress note [facility] Medical Records Department [address] [place] [address] Progress Note - Orthopedic 02/17/25 1224 MR#: [id number] Acct: [id number] Name: JEREMIAH VILLA Rep #:[id number] : 1945 79 From: Rasheed Galindo DO PCP: PRISCILLA Almanzar Status:ADM I N Location: [place] [address] Subjective Subjective Patient seen and examined. He is sitting in a chair eating his lunch comfortably. He states that aslong as he stays on top of his pain medication he is doing fine he denies any other complaints or concerns. Objective Data Objective Data Vital Signs: Vital Signs Temp Pulse Resp BP Pulse Ox O2 Del Method O2 Flow Rate 98.3 F 92 16 132/57 H 95 Room Air 2 02/17/25 10:15 02/17/25 10:15 02/17/25 10:15 02/17/25 10:15 02/17/25 10:15 02/17/25 10:15 02/16/25 07:05 FiO2 30 02/15/25 12:39 Oxygen Flow Rate (L/min) 2 Oxygen Delivery Method Room Air Weight: 272 lb 14.916 oz Body Mass Index (BMI) 38.2 Intake & Output: Intake and Output for Last 24 Hours 02/15/25 02/16/25 02/17/25 23:59 23:59 23:59 Intake Total 555.5 / 555.5 720 / 720 1100 / 1100 Output Total 750 / 1000 1625 / 1625 875 / 875 Balance -194.5 / -444.5 -905 / -905 225 / 225 Lab / Micro Data 02/17/25 08:22 02/17/25 08:22 Labs: Laboratory Results - last 24 hr 02/16/25 16:28: POC Glucose 258 H 02/16/25 21:35: POC Glucose 179 H 02/17/25 06:34: POC Glucose 79 02/17/25 08:22: WBC 13.2 H, RBC 3.85 L, Hgb 12.1 L, Hct 35.8 L, MCV 93.0, MCH 31.4, MCHC 33.8, RDW Std Deviation 46.6 H, RDW Coeff of Sherry 13.6, Plt Count 227,MPV 9.4, Immature Gran % (Auto) 1.100 H, Neut % (Auto) 69.0, Lymph % (Auto) 18.9L, [place] % (Auto) 8.4, Eos % (Auto) 2.2, Baso % (Auto) 0.4, Absolute Neuts (auto)9.1 H, Absolute Lymphs (auto) 2.49, Nucleated RBC % 0, Sodium 137, Potassium 4.0,Chloride 102, Carbon Dioxide 26.1, Anion Gap 9, BUN 29 H, Creatinine 1.92 H, Estim Creat Clear Calc42.47 L, Est GFR (MDRD) Non-Af 35 L, BUN/Creatinine Ratio 15.3, Glucose 72, Calcium 8.7 02/17/25 11:01: POC Glucose 209 H Micro: Microbiology 02/15/25 02:40 Vomitus Gastric Occult Blood - Final Occult Blood Positive Physical Exam Const alert, oriented x3 and no apparent distress General Appearance: cooperative Extremity Extremity Narrative: Left hip dressing clean dry intact compartments soft neurovascular intact, palpable pedal pulse intact sensation light touch Assessment & Plan Assessment/Plan (1) Left lumbar radiculitis: (2) Status post left hip replacement: (3) Acute hypercapnic respiratory failure: (4) Coffee ground emesis: PLAN: Plan Postop day #3 left total hip arthroplasty PT OT weightbearing as tolerated Patient is not moving around very well yet will likely require rehab waiting on bed for Thursday Patient is haves having significant left lower extremity radiculitis he does have known lumbar spondylosis. Started on gabapentin titrating to 2 pills today and 3 pills tomorrow and after Awaiting discharge to rehab He has resumed his Eliquis and he needs to continue this for 35 days postoperatively with his history of DVT PE. He will need to follow-up in the office 2 weeks 02/17/25 1225 Cosigner Signature (if applicable): CC: ~ Signed [facility]06-19-2025 Progress note Author Shraddha Gamez [facility] Note Date/Time February 16, 2025 4:29 pm [facility] Medical Records Department [address] [place] [address] Progress Note - Hospitalist 02/16/25 5765 MR#: [id number] Acct: [id number] Name: JEREMIAH VILLA Rep #:[id number] : 1945 79 From: Shraddha Gamez MD PCP: PRISCILLA Almanzar Status:ADM I N Location: [address] Reason for Visit Reason for Visit: Diagnoses Type 2 diabetes mellitus without complications (02/14/25) Other acute postprocedural pain (02/14/25) Acute respiratory failure with hypercapnia (02/14/25) Hematemesis (02/14/25) Radiculopathy, lumbar region (02/14/25) Encounter for other preprocedural examination (02/14/25) Presence of left artificial hip joint (02/14/25) Subjective Subjective Patient with continued pain complaints but has been up with therapy, no abdominal pain, no further nausea, not eating well here but reports this becausehe does not like the food, drinking water but reports he knows he could be drinking more per patient. No shortness of breath Objective Data Objective Data Vital Signs: Vital Signs Temp Pulse Resp BP Pulse Ox O2 Del Method O2 Flow Rate 98.3 F 98 18 127/48 H 98 Room Air 2 06/19/25 07:37 02/16/25 07:37 02/16/25 07:37 02/16/25 07:37 02/16/25 07:37 02/16/25 07:37 02/15/25 19:26 FiO2 30 02/15/25 12:39 Oxygen Flow Rate (L/min) 2 Oxygen Delivery Method Room Air Weight: 122.8 kg Body Mass Index (BMI) 37.9 Intake & Output: Intake and Output for Last 24 Hours 02/14/25 02/15/25 02/16/25 23:59 23:59 23:59 Intake Total 4614.58 / 4614.58 555.5 / 555.5 Output Total 950 / 950 750 / 1000 650 / 650 Balance 3664.58 / 3664.58 -194.5 / -444.5 -650 / -650 Lab / Micro Data 02/16/25 07:25 02/16/25 07:25 Labs: Laboratory Results - last 24 hr 02/15/25 08:20: WBC 12.2 H, RBC 3.99 L, Hgb 12.4 L, Hct 36.9 L, MCV 92.5, MCH 31.1, MCHC 33.6, RDW Std Deviation 44.8 H, RDW Coeff of Sherry 13.2, Plt Count 199,MPV 9.2 02/15/25 16:22: POC Glucose 185 H 02/15/25 21:32: WBC 13.7 H, RBC 3.97 L, Hgb 12.6 L, Hct 36.4 L, MCV 91.7, MCH 31.7, MCHC 34.6, RDW Std Deviation 44.6 H, RDW Coeff of Sherry 13.2, Plt Count 209,MPV 9.5 02/15/25 23:08: POC Glucose 264 H 02/16/25 06:21: POC Glucose 180 H 02/16/25 07:25: WBC 13.5 H, RBC 4.04 L, Hgb 12.6 L, Hct 36.6 L, MCV 90.6, MCH 31.2, MCHC 34.4, RDW Std Deviation 44.1 H, RDW Coeff of Sherry 13.3, Plt Count 192,MPV 9.3, Immature Gran % (Auto) 0.900, Neut % (Auto) 76.9 H, Lymph % (Auto) 12.1L, [place] % (Auto) 8.7, Eos % (Auto) 1.0, Baso % (Auto) 0.4, Absolute Neuts (auto)10.4 H, Absolute Lymphs (auto) 1.63, Nucleated RBC % 0 Micro: Microbiology 02/15/25 02:40 Vomitus Gastric Occult Blood - Final Occult Blood Positive Physical Exam Narrative General: Alert, no apparent distress HEENT: Atraumatic, normocephalic Eyes: Anicteric, normal conjunctiva, extraocular movements grossly intact Neck: Supple Respiratory: Clear to auscultation bilaterally, normal respiratory effort Cardiovascular: Regular rate and rhythm GI: Soft, no significant distention, nontender Extremities: No significant lower extremity edema Musculoskeletal: Moving all extremities but left hip Neuro: No overt focal neurological deficits Skin: No rashes appreciated Psych: Cooperative Assessment & Plan Assessment/Plan (1) Acute hypercapnic respiratory failure: (2) Coffee ground emesis: (3) Status post left hip replacement: (4) Diabetes: PLAN: Plan 79-year-old male history of diabetes and hypertension presented to [facility] 02/14/2025 for planned left hip replacement, postoperatively patient found to have hypercapnic respiratory failure and was admitted to the ICU on AVAPS, medicine consulted for postop medical management and patient's hypercapnic respiratory failure. # Coffee-ground emesis-found to have erosive esophagitis - patient with episode of emesis overnight, reportedly coffee-ground appearance and gastric occult positive - patient was made n.p.o. and started on Protonix drip with GI consult - CT abdomen with contrast demonstrated mild gastritis - Patient underwent upper endoscopy 02/15/2025 w/ LA grade C erosive esophagitis w/ no bleeding and with old blood in oropharynx and nasopharynx -Pt to resume diet and is resuming Eliquis tonight -02/16: Hemoglobin stable, given his erosive esophagitis and especially given hisneed for Eliquis postoperatively will have patient on p.o. PPI # acute hypercapnic respiratory failure?resolved - postoperatively patient with pCO2 in the 80s with pH of 7.15, initially placedon BiPAP and later changed to AVAPS. Chest x-ray with mild vascular congestion and right upper lobe infiltrate with possible pneumonia -Patient without any productive cough or elevated white blood cell count or other signs or symptoms that would suggest patient has pneumonia, this seems to be more likely related to sedation with anesthesia and possible untreated sleep apnea so holding off on empiric antibiotics -May need to consider repeat imaging in the future to verify improvement/resolution - patient's respiratory status improved with AVAPS - there is concern for undiagnosed sleep apnea by anesthesiologist, patient doesnot need acutely seen by fitness floor attendant due to improvement but would benefit from outpatient follow-up for possible sleep study/further workup and management -02/16: Respiratory status stable this a.m. with patient 98% on room air #L total hip arthroplasty - with Dr. 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 -02/16: Patient has had further uptrend in creatinine, suspect this is in part due to IV contrast in setting of CKD, will give gentle IV fluid hydration and recheck in a.m. if stable or improving will likely be fine to go to SNF, if not we will need to consider nephro involvement #Type 2 diabetes mellitus -Glucose checks and sliding scale insulin - Will hold home glipizide during acute hospitalization -02/16: A.m. glucose 180, has had pretty significant variations in glucose, will likely go back on glipizide on DC, presently on sliding scale insulin #Hypertension - BP slightly on the lower side so holding antihypertensives -02/16: Blood pressure somewhat improving but still quite variable, blood pressure currently reasonable, will hold off on adding back antihypertensives atthis time unless blood pressure becomes more hypertensive #DVT ppx:rogers Gamez MD Charges/Coding Visit Charges Inpatient E&M: 47731 Subs Hosp L2 02/16/25 6425 <Electronically signed by Shraddha Gamez MD> Cosigner Signature (if applicable): CC: ~ Signed [facility] Work Phone: 1(889) 808-637006-19-2025 Progress note Author Chris Alberts [facility] Note Date/Time February 16, 2025 2:57 pm [facility] Medical Records Department [address] [place] [address] Progress Note 02/14/25 1759 MR#: [id number] Acct: [id number] Name: JEREMIAH VILLA Rep #:[id number] : 1945 79 From: Chris Alberts MD PCP: PRISCILLA Almanzar Status:ADM I N Location: [place] [address] Progress Note This patient was successfully given a spinal by the LEAFLET DISTRIBUTOR, and taken to the operating room for surgery. As per chart review, the patient was given sedation throughout the case. I was not called during the case, however I was called to the PACU for this patient due to concerns of hypercarbia. In the PACU, the patient's end tidal CO2 was in the 80s, with the patient satting around 91-93. The patient was taking breaths, but was otherwise unresponsive and somnolent. The likely diagnosis was CO2 necrosis secondary to hypoventilation. We called for respiratory therapy to place the patient on BiPAP, which had to later be converted to AVAP due to the patient's somnolence. ABG taken at this time was pH 7.15, pCO2 85, consistent with acute respiratory acidosis secondary to hypercapnic respiratory failure. Chest x-ray showed mild vascular congestion and right upper lobe infiltrate, possible pneumonia. Upon review of the anesthetic record, the etCO2 was not adequately monitored, and thus it is presumed that oversedation and hypoventilation occurred throughout the case, leading to these ABG values. After being on BiPAP for over an hour, repeat ABG showed pH 7.27, pCO2 60, and the patient became more arousable and was able to follow commands, became oriented to self/place/time. I had a long discussion with the patient's family regarding the patient's probable diagnosis of KATHERINE, and how this was the most likely contributor to the patient's symptoms. They voiced understanding and asked for pulmonary / sleep specialist recommendations. Otherwise, the patient will be admitted to ICU for continued monitoring. Please contact the anesthesia team if any questions. 02/14/251815 <Electronically signed by Chris Alberts MD> Chris Alberts MD Cosigner Signature (if applicable): CC: ~ Signed ADDENDUM by Dr. Chris Alberts MD on 02/16/25 at 1457 Addendum Following my initial note, the LEAFLET DISTRIBUTOR involved in this case shared that the patient experienced transient airway obstruction intraoperatively, for which he intervened with an oral airway. He recalls (and I concur) that he informed me ofthis during a moment when I stepped into the OR. At the time, I did not perceivean ongoing concern requiring intervention and was not called back during the case. At this time, I was committed to oversight responsibilities for other anesthetizing cases under a medical direction model and was not involved in the active management of this patient's intraoperative course. My involvement in thepatient's care began in the PACU, where I responded to concerns for hypoventilation and hypercarbia. The original note is intended to document the findings and interventions at that time. Chris Alberts MD 02/16/251456 <Electronically signed by Chris Alberts MD> Date _ Chris Alberts MD Cosigner Signature (if applicable): Date cc: ~* Signed [facility] Work Phone: 1(837) 284-740706-19-2025 Progress note [facility] Medical Records Department [address] [place] [address] Progress Note - Hospitalist 02/16/25754 MR#: [id number] Acct: [id number] Name: JEREMIAH VILLA Rep #:[id number] : 1945 79 From: Shraddha Gamez MD PCP: PRISCILLA Almanzar Status:ADM I N Location: [place] [address] Reason for Visit Reason for Visit: Diagnoses Type 2 diabetes mellitus without complications (02/14/25) Other acute postprocedural pain (02/14/25) Acute respiratory failure with hypercapnia (02/14/25) Hematemesis (02/14/25) Radiculopathy, lumbar region (02/14/25) Encounter for other preprocedural examination (02/14/25) Presence of left artificial hip joint (02/14/25) Subjective Subjective Patient with continued pain complaints but has been up with therapy, no abdominal pain, no further nausea, not eating well here but reports this becausehe does not like the food, drinking water but reports he knows he could be drinking more per patient. No shortness of breath Objective Data Objective Data Vital Signs: Vital Signs Temp Pulse Resp BP Pulse Ox O2 Del Method O2 Flow Rate 98.3 F 98 18 127/48 H 98 Room Air 2 02/16/25 07:37 02/16/25 07:37 02/16/25 07:37 02/16/25 07:37 02/16/25 07:37 02/16/25 07:37 02/15/25 19:26 FiO2 30 02/15/25 12:39 Oxygen Flow Rate (L/min) 2 Oxygen Delivery Method Room Air Weight: 122.8 kg Body Mass Index (BMI) 37.9 Intake & Output: Intake and Output for Last 24 Hours 02/14/25 02/15/25 02/16/25 23:59 23:59 23:59 Intake Total 4614.58 / 4614.58 555.5 / 555.5 Output Total 950 / 950 750 / 1000 650 / 650 Balance 3664.58 / 3664.58 -194.5 / -444.5 -650 / -650 Lab / Micro Data 02/16/25 07:25 02/16/25 07:25 Labs: Laboratory Results - last 24 hr 02/15/25 08:20: WBC 12.2 H, RBC 3.99 L, Hgb 12.4 L, Hct 36.9 L, MCV 92.5, MCH 31.1, MCHC 33.6, RDW Std Deviation 44.8 H, RDW Coeff of Sherry 13.2, Plt Count 199,MPV 9.2 02/15/25 16:22: POC Glucose 185 H 02/15/25 21:32: WBC 13.7 H, RBC 3.97 L, Hgb 12.6 L, Hct 36.4 L, MCV 91.7, MCH 31.7, MCHC 34.6, RDW Std Deviation 44.6 H, RDW Coeff of Sherry 13.2, Plt Count 209,MPV 9.5 02/15/25 23:08: POC Glucose 264 H 02/16/25 06:21: POC Glucose 180 H 02/16/25 07:25: WBC 13.5 H, RBC 4.04 L, Hgb 12.6 L, Hct 36.6 L, MCV 90.6, MCH 31.2, MCHC 34.4, RDW Std Deviation 44.1 H, RDW Coeff of Sherry 13.3, Plt Count 192,MPV 9.3, Immature Gran % (Auto) 0.900, Neut % (Auto) 76.9 H, Lymph % (Auto) 12.1L, [place] % (Auto) 8.7, Eos % (Auto) 1.0, Baso % (Auto) 0.4, Absolute Neuts (auto)10.4 H, Absolute Lymphs (auto) 1.63, Nucleated RBC % 0 Micro: Microbiology 02/15/25 02:40 Vomitus Gastric Occult Blood - Final Occult Blood Positive Physical Exam Narrative General: Alert, no apparent distress HEENT: Atraumatic, normocephalic Eyes: Anicteric, normal conjunctiva, extraocular movements grossly intact Neck: Supple Respiratory: Clear to auscultation bilaterally, normal respiratory effort Cardiovascular: Regular rate and rhythm GI: Soft, no significant distention, nontender Extremities: No significant lower extremity edema Musculoskeletal: Moving all extremities but left hip Neuro: No overt focal neurological deficits Skin: No rashes appreciated Psych: Cooperative Assessment & Plan Assessment/Plan (1) Acute hypercapnic respiratory failure: (2) Coffee ground emesis: (3) Status post left hip replacement: (4) Diabetes: PLAN: Plan 79-year-old male history of diabetes and hypertension presented to [facility] 02/14/2025 for planned left hip replacement, postoperatively patient found to have hypercapnic respiratoryfailure and was admitted to the ICU on AVAPS, medicine consulted for postop medical management and patient's hypercapnic respiratory failure. # Coffee-ground emesis-found to have erosive esophagitis - patient with episode of emesis overnight, reportedly coffee-ground appearance and gastric occult positive - patient was made n.p.o. and started on Protonix drip with GI consult - CT abdomen with contrast demonstrated mild gastritis - Patient underwent upper endoscopy 02/15/2025 w/ LA grade C erosive esophagitis w/ no bleeding and with old blood in oropharynx and nasopharynx -Pt to resume diet and is resuming Eliquis tonight -02/16: Hemoglobin stable, given his erosive esophagitis and especially given hisneed for Eliquis postoperatively will have patient on p.o. PPI # acute hypercapnic respiratory failure?resolved - postoperatively patient with pCO2 in the 80s with pH of 7.15, initially placedon BiPAP and later changed to AVAPS. Chest x-ray with mild vascular congestion and right upper lobe infiltrate with possible pneumonia -Patient without any productive cough or elevated white blood cell count or other signs or symptomsthat would suggest patient has pneumonia, this seems to be more likely related to sedation with anesthesia and possible untreated sleep apnea so holding off on empiric antibiotics -May need to consider repeat imaging in the future to verify improvement/resolution - patient's respiratory status improved with AVAPS - there is concern for undiagnosed sleep apnea by anesthesiologist, patient doesnot need acutely seen by fitness floor attendant due to improvement but would benefit from outpatient follow-up for possible sleep study/further workup and management -02/16: Respiratory status stable this a.m. with patient 98% on room air #L total hip arthroplasty - with Dr. 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 -02/16: Patient has had further uptrend in creatinine, suspect this is in part due to IV contrast insetting of CKD, will give gentle IV fluid hydration and recheck in a.m. if stable or improving willlikely be fine to go to SNF, if not we will need to consider nephro involvement #Type 2 diabetes mellitus -Glucose checks and sliding scale insulin - Will hold home glipizide during acute hospitalization -02/16: A.m. glucose 180, has had pretty significant variations in glucose, will likely go back on glipizide on DC, presently on sliding scale insulin #Hypertension - BP slightly on the lower side so holding antihypertensives -02/16: Blood pressure somewhat improving but still quite variable, blood pressure currently reasonable, will hold off on adding back antihypertensives atthis time unless blood pressure becomes more hypertensive #DVT ppx:rogers Gamez MD Charges/Coding Visit Charges Inpatient E&M: 91685 Subs Hosp L2 02/16/25 9196 Cosigner Signature (if applicable): CC: ~ Signed [facility]06-19-2025 Progress note [facility] Medical Records Department [address] [facility] [place] [address] Progress Note 02/14/25 0642 MR#: [id number] Acct: [id number] Name: JEREMIAH VILLA Rep #:[id number] : 1945 79 From: Chris Alberts MD PCP: PRISCILLA Almanzar Status:ADM I N Location: [place] [address] Progress Note This patient was successfully given a spinal by the LEAFLET DISTRIBUTOR, and taken to the operating room for surgery. As per chart review, the patient was given sedation throughout the case. I was not called duringthe case, however I was called to the PACU for this patient due to concerns of hypercarbia. In the PACU, the patient's end tidal CO2 was in the 80s, with the patient satting around 91-93. Thepatient was taking breaths, but was otherwise unresponsive and somnolent. The likely diagnosis was CO2 necrosis secondary to hypoventilation. We called for respiratory therapy to place the patient onBiPAP, which had to later be converted to AVAP due to the patient's somnolence. ABG taken at this time was pH 7.15, pCO2 85, consistent with acute respiratory acidosis secondary to hypercapnic respiratory failure. Chest x-ray showed mild vascular congestion and right upper lobe infiltrate, possiblepneumonia. Upon review of the anesthetic record, the etCO2 was not adequately monitored, and thus it is presumed that oversedation and hypoventilation occurred throughout the case, leading to these ABG values. After being on BiPAP for over an hour, repeat ABG showed pH 7.27, pCO2 60, and the patient became more arousable and was able to follow commands, became oriented to self/place/time. 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 They voiced understanding and asked for pulmonary / sleep specialist recommendations. Otherwise, the patient will be admitted to ICU for continued monitoring. Please contact the anesthesia team if any questions. 02/14/251815 Chris Alberts MD Cosigner Signature (if applicable): CC: ~ Signed ADDENDUM by Dr. Chris Alberts MD on 02/16/25 at 7977 Addendum Following my initial note, the LEAFLET DISTRIBUTOR involved in this case shared that the patient experienced transient airway obstruction intraoperatively, for which he intervened with an oral airway. He recalls (and I concur) that he informed me ofthis during a moment when I stepped into the OR. At the time, I did not perceivean ongoing concern requiring intervention and was not called back during the case. Atthis time, I was committed to oversight responsibilities for other anesthetizing cases under a medical direction model and was not involved in the active management of this patient's intraoperative course. My involvement in thepatient's care began in the PACU, where I responded to concerns for hypov entilation and hypercarbia. The original note is intended to document the findings and interventions at that time. Chris Alberts MD 02/16/25 2057 MD> Date _ Chris Alberts MD Cosigner Signature (if applicable): Date cc: ~* Signed [facility]06-19-2025 Discharge summary Author Rasheed Galindo [facility] Note Date/Time February 17, 2025 1:17 pm [facility] Medical Records Department [address] [place] [address] Instructions for Home/Discharge Instructions 02/16/25 0642 MR#: [id number] Acct: [id number] Name: JEREMIAH VILLA Rep #:[id number] : 1945 79 From: Rasheed Galindo DO PCP: PRISCILLA Almanzar Status:ADM I N Discharge Instructions Diet Discharge Diet: 1999 Calorie Control Diet DC O2, CPAP, BIPAP needs Home O2 Discharge instructions: No Dressing / Incision Weight Bearing Status: Weight bearing as tolerated Dressing / Incision Call your doctor if you observe: Shortness of breath and Chest pain Additional Dressing/Incision Instructions:: Do not shower for 5 days. May Begin daily showering with warm water antibacterial soap postop day #5 and then daily. Leave the dressing on for 5 days postoperatively then remove prior to first shower and change dressing daily after this until no drainage for 2 consecutive days then may leave open to air. If you decide not shower and wish to sponge bath only, then may leave dressing undisturbed for up to 1 week, but must remove prior to first shower. Do not submerge for 3 weeks. If not showering daily after the initial dressing is removed you must clean incision and change dressing daily after the dressing comes off, must come off by 7 days postop. Do not allow animals near the incision area. Keep clean. Follow hip precautions that were reviewed in hospital. Wear compression stockings, may remove at night. Start physical therapy as directed in hospital. Follow prescriptions instructions do not take any other pain medication or differ dosing without consulting your physician. Do not take oral NSAIDs until blood thinner has been completed , then may begin the day after completion if needed . Patient needs to be on Eliquis for [address] Galindo'chandlerfiserena with any concerns. Follow Up Care Please Follow Up With: Rasheed Galindo DO When: 2 weeks Test Results: Test results from this visit will be discussed in further detail at your follow- up appointment, if applicable. Discharge Plan Admission Admit Date/Time: 02/14/25 13:33 Primary Reason for Your Visit: Left total hip arthroplasty Attending Provider: Rasheed Galindo Primary Care Provider: Kerwin Hugo Consulting Providers: Shraddha Gamez; Yomi Dempsey Discharge Orders/Prescriptions Prescriptions: New acetaminophen 500 mg tablet 1,000 mg PO Q6H Qty: 100 0RF Eliquis 2.5 mg tablet 2.5 mg PO BID Qty: 66 0RF oxycodone 5 mg tablet 5 - 10 mg PO Q4H PRN (Reason: pain) 7 Days Qty: 60 0RF gabapentin 300 mg capsule 300 mg PO TID Qty: 90 0RF Continued glipizide 5 mg tablet 5 mg PO BID lisinopril 5 mg tablet 5 mg PO BID vitamin K2 100 mcg capsule 100 mcg PO DAILY cholecalciferol (vitamin D3) [Vitamin D3] 25 mcg (1,000 unit) tablet 25 mcg PO DAILY Prostate Health 160-100-100 mg-unit-mcg tablet 2 tab PO TID C Complex 1,000 mg tablet extended release 2,000 mg PO DAILY magnesium 250 mg tablet 750 mg PO DAILY Referrals / Follow Up: Tess Hernandez MD [Non-Staff] - Disposition Disposition (needs filled in before D/C Order can be placed): Inpatient Rehab Unit/Facility 02/16/25 0651<Electronically signed by Rasheed Galindo DO>Rasheed Galindo DO CC: Dr. Yomi Dempsey DO; Dr. Shraddha Gamez MD; PRISCILLA Almanzar ~ Signed ADDENDUM by Dr. Shraddha Gamez MD on 02/17/25 at 1317 -Recommend patient be discharged on Protonix 40 mg twice daily especially while on Eliquis given his reflux esophagitis -Kidney function has improved further, per patient baseline around 1.3, would benefit from a BMP 2 to 3 days to reassess, would recommend continue to hold lisinopril -May benefit from continuing sliding scale insulin in the short-term until kidney function is back to baseline (per patient 1.3) given glipizide is renallyexcreted -Recommending to continue to hold lisinopril given kidney function -Tsang removed but then had to be replaced due to urinary retention, patient hashad some constipation, bowel regimen, tamsulosin started, UA with some leuk esterase but minimal white blood cells and very rare bacteria, lower suspicion for UTI so holding off on empiric antibiotics at this time, urine culture was sent 02/17/25 1317<Electronically signed by Shraddha Gamez MD>Shraddha Gamez MD cc: Dr. Yomi Dempsey DO; Dr. Shraddha Gamez MD; PRISCILLA Almanzar ~* Signed [facility] Work Phone: 1(925) [phone] Progress note [facility] Note Date/Time February 16, 2025 6:42 am [facility] Medical Records Department [address] [place] [address] Progress Note - Orthopedic 02/16/25 0639 MR#: [id number] Acct: [id number] Name: JEREMIAH VILLA Rep #:[id number] : 1945 79 From: Rasheed Galindo DO PCP: PRISCILLA Almanzar Status:ADM I N Location: [place]3 [id number] Subjective Subjective Seen and examined. Overall doing okay his hip pain is okay his worst pain is actually radicular pain down his left leg. He has known lumbar spondylosis. And did develop severe radicular pain on his right side after his other surgery many years ago. He denies any fevers chills nausea vomit shortness of breath orchest pain Objective Data Objective Data Vital Signs: Vital Signs Temp Pulse Resp BP Pulse Ox O2 Del Method O2 Flow Rate 98.7 F 93 16 140/57 H 94 Room Air 2 02/16/25 02:29 02/16/25 02:29 02/16/25 02:29 02/16/25 02:29 02/16/25 02:29 02/16/25 02:29 02/15/25 19:26 FiO2 30 02/15/25 12:39 Oxygen Flow Rate (L/min) 2 Oxygen Delivery Method Room Air Weight: 270 lb 11.642 oz Body Mass Index (BMI) 37.9 Intake & Output: Intake and Output for Last 24 Hours 02/14/25 02/15/25 02/16/25 23:59 23:59 23:59 Intake Total 4614.58 / 4614.58 555.5 / 555.5 Output Total 950 / 950 750 / 1000 650 / 650 Balance 3664.58 / 3664.58 -194.5 / -444.5 -650 / -650 Lab / Micro Data 02/15/25 21:32 02/15/25 03:18 Labs: Laboratory Results - last 24 hr 02/15/25 08:20: WBC 12.2 H, RBC 3.99 L, Hgb 12.4 L, Hct 36.9 L, MCV 92.5, MCH 31.1, MCHC 33.6, RDW Std Deviation 44.8 H, RDW Coeff of Sherry 13.2, Plt Count 199,MPV 9.2 02/15/25 16:22: POC Glucose 185 H 02/15/25 21:32: WBC 13.7 H, RBC 3.97 L, Hgb 12.6 L, Hct 36.4 L, MCV 91.7, MCH 31.7, MCHC 34.6, RDW Std Deviation 44.6 H, RDW Coeff of Sherry 13.2, Plt Count 209,MPV 9.5 02/15/25 23:08: POC Glucose 264 H Micro: Microbiology 02/15/25 02:40 Vomitus Gastric Occult Blood - Final Occult Blood Positive Physical Exam Const alert, oriented x3 and no apparent distress General Appearance: cooperative Extremity Extremity Narrative: Left hip dressing clean dry intact compartments soft neurovascular intact, palpable pedal pulse intact sensation light touch Assessment & Plan Assessment/Plan (1) Left lumbar radiculitis: (2) Status post left hip replacement: (3) Acute hypercapnic respiratory failure: (4) Coffee ground emesis: PLAN: Plan Postop day #2 left total hip arthroplasty PT OT weightbearing as tolerated Patient is not moving around very well yet will likely require rehab waiting on bed for Thursday Patient is haves having significant left lower extremity radiculitis he does have known lumbar spondylosis. I will start him on gabapentin 300 mg he will be titrated up over the next 3 days. Awaiting discharge to rehab tomorrow He has resumed his Eliquis and he needs to continue this for 35 days postoperatively with his history of DVT PE. He will need to follow-up in the office 2 weeks 02/16/25 0642 <Electronically signed by Rasheed Galindo DO> Cosigner Signature (if applicable): CC: ~ Signed [facility] Work Phone: [phone]) 400-925806-19-2025 Progress note [facility] Medical Records Department [address] [place] [address] Progress Note - Orthopedic 02/16/25 0639 MR#: [id number] Acct: [id number] Name: JEREMIAH VILLA Rep #:[id number] : 1945 79 From: Rasheed Galindo DO PCP: PRISCILLA Almanzar Status:ADM I N Location: CA3 TK312-5 Subjective Subjective Seen and examined. Overall doing okay his hip pain is okay his worst pain is actually radicular pain down his left leg. He has known lumbar spondylosis. And did develop severe radicular pain on his right side after his other surgery many years ago. He denies any fevers chills nausea vomit shortnessof breath orchest pain Objective Data Objective Data Vital Signs: Vital Signs Temp Pulse Resp BP Pulse Ox O2 Del Method O2 Flow Rate 98.7 F 93 16 140/57 H 94 Room Air 2 02/16/25 02:29 02/16/25 02:29 02/16/25 02:29 02/16/25 02:29 02/16/25 02:29 02/16/25 02:29 02/15/25 19:26 FiO2 30 02/15/25 12:39 Oxygen Flow Rate (L/min) 2 Oxygen Delivery Method Room Air Weight: 270 lb 11.642 oz Body Mass Index (BMI) 37.9 Intake & Output: Intake and Output for Last 24 Hours 02/14/25 02/15/25 02/16/25 23:59 23:59 23:59 Intake Total 4614.58 / 4614.58 555.5 / 555.5 Output Total 950 / 950 750 / 1000 650 / 650 Balance 3664.58 / 3664.58 -194.5 / -444.5 -650 / -650 Lab / Micro Data 02/15/25 21:32 02/15/25 03:18 Labs: Laboratory Results - last 24 hr 02/15/25 08:20: WBC 12.2 H, RBC 3.99 L, Hgb 12.4 L, Hct 36.9 L, MCV 92.5, MCH 31.1, MCHC 33.6, RDW Std Deviation 44.8 H, RDW Coeff of Sherry 13.2, Plt Count 199,MPV 9.2 02/15/25 16:22: POC Glucose 185 H 02/15/25 21:32: WBC 13.7 H, RBC 3.97 L, Hgb 12.6 L, Hct 36.4 L, MCV 91.7, MCH 31.7, MCHC 34.6, RDW Std Deviation 44.6 H, RDW Coeff of Sherry 13.2, Plt Count 209,MPV 9.5 02/15/25 23:08: POC Glucose 264 H Micro: Microbiology 02/15/25 02:40 Vomitus Gastric Occult Blood - Final Occult Blood Positive Physical Exam Const alert, oriented x3 and no apparent distress General Appearance: cooperative Extremity Extremity Narrative: Left hip dressing clean dry intact compartments soft neurovascular intact, palpable pedal pulse intact sensation light touch Assessment & Plan Assessment/Plan (1) Left lumbar radiculitis: (2) Status post left hip replacement: (3) Acute hypercapnic respiratory failure: (4) Coffee ground emesis: PLAN: Plan Postop day #2 left total hip arthroplasty PT OT weightbearing as tolerated Patient is not moving around very well yet will likely require rehab waiting on bed for Thursday Patient is haves having significant left lower extremity radiculitis he does have known lumbar spondylosis. I will start him on gabapentin 300 mg he will be titrated up over the next 3 days. Awaiting discharge to rehab tomorrow He has resumed his Eliquis and he needs to continue this for 35 days postoperatively with his history of DVT PE. He will need to follow-up in the office 2 weeks 02/16/25 0642 Cosigner Signature (if applicable): CC: ~ Signed [facility]06-18-2025 Progress note Author Shraddha Gamez [facility] Note Date/Time February 15, 2025 6:56 pm [facility] Medical Records Department [address] [place] [address] Progress Note - Hospitalist 02/15/25 0743 MR#: [id number] Acct: [id number] Name: JEREMIAH VILLA Rep #:[id number] : 1945 79 From: Shraddha Gamez MD PCP: PRISCILLA Almanzar Status:ADM I N Location: ICU ICU02-1 Reason for Visit Reason for Visit: Diagnoses Acute respiratory failure with hypercapnia (02/14/25) Encounter for other preprocedural examination (02/14/25) Presence of left artificial hip joint (02/14/25) Subjective Subjective Patient sitting up in chair eating post endoscopy, reports he does not like the food but otherwise is feeling better, does have pain in the hip but no other newacute complaints, no abdominal pain, no nausea. Objective Data Objective Data Vital Signs: Vital Signs Temp Pulse Resp BP Pulse Ox O2 Del Method O2 Flow Rate 98.1 F 90 15 105/52 L 99 Nasal Cannula 2 02/15/25 06:00 02/15/25 07:00 02/15/25 07:00 02/15/25 07:00 02/15/25 07:13 02/15/25 07:13 02/15/25 07:13 FiO2 30 02/15/25 02:00 Oxygen Flow Rate (L/min) 2 Oxygen Delivery Method Nasal Cannula Weight: 123.2 kg Body Mass Index (BMI) 37.8 Intake & Output: Intake and Output for Last 24 Hours 02/13/25 02/14/25 02/15/25 23:59 23:59 23:59 Intake Total 4614.58 / 4614.58 110 / 110 Output Total 950 / 950 350 / 350 Balance 3664.58 / 3664.58 -240 / -240 Lab / Micro Data 02/15/25 08:20 02/15/25 03:18 Labs: Laboratory Results - last 24 hr 02/14/25 09:31: POC Glucose 278 H 02/14/25 13:51: POC Glucose 167 H 02/14/25 17:47: POC Glucose 100 02/14/25 18:20: NT pro BNP II 325 02/14/25 21:25: POC Glucose 190 H 02/15/25 03:18: WBC 10.7, RBC 4.34 L, Hgb 13.8, Hct 40.7, MCV 93.8, MCH 31.8, MCHC 33.9, RDW Std Deviation 45.3 H, RDW Coeff of Sherry 13.2, Plt Count 207, MPV 9.1, Immature Gran % (Auto) 0.200, Neut % (Auto) 79.6 H, Lymph % (Auto) 12.0 L, [place] % (Auto) 7.9, Eos % (Auto) 0.1, Baso % (Auto) 0.2, Absolute Neuts (auto) 8.5 H, Absolute Lymphs (auto) 1.28, Nucleated RBC % 0, Sodium 133, Potassium 4.4, Chloride 98, Carbon Dioxide 22.2, Anion Gap 12, BUN 17, Creatinine 1.76 H, Estim Creat Clear Calc 46.24 L, Est GFR (MDRD) Non-Af 39 L, BUN/Creatinine Ratio9.7 L, Glucose 183 H, Calcium 8.6 Micro: Microbiology 02/15/25 02:40 Vomitus Gastric Occult Blood - Final Occult Blood Positive ABG Data ABG results: ABG 02/14/25 02/14/25 02/14/25 14:30 15:55 19:39 Specimen Type ART ART Cancelled Sample Site R Brach R Brach Cancelled pH 7.15 L* 7.27 L Cancelled Bicarbonate Actual 29.2 H 27.2 H Cancelled Total CO2 32 29 Cancelled Base Excess 0 0 Cancelled O2 Saturation 94 L 94 L Cancelled O2 % 40.0 40.0 Cancelled ABG pCO2 84.8 H* 60.0 H Cancelled ABG pO2 94 83 Cancelled [place] Test Cancelled Respiration Rate 16 16 Cancelled O2 Delivery Device BiPAP BiPAP Cancelled Liter Flow Cancelled Minute Volume Cancelled Vent Mode Not entered Not entered Cancelled Inspiratory Time Cancelled Expiratory Time Cancelled Tidal Volume 500.0 Cancelled Mean Airway Pressure Cancelled POC PEEP 10 6 Cancelled Peak Inspir Pressure Cancelled POC Pressure Suppt Cancelled Pressure Control Cancelled Pressure High Cancelled Pressure Low Cancelled Time High Cancelled Time Low Cancelled EPAP Cancelled IPAP Cancelled Blood Gas Comments Cancelled Crit Call To/Read Back Yes Cancelled Blood Gas Notified Whom CALIXTO NUNEZ Cancelled Blood Gas Notified Time 14:32:13 Cancelled Clinical Comments AVAPS Cancelled Radiography Diagnostic Testing: Radiology Impression Hip X-Ray 02/14/25 13:30 IMPRESSION: Status post left total hip replacement. There is good alignment. Postoperative soft tissue changes. Reading Location: [facility] Chest X-Ray 02/14/25 15:06 IMPRESSION: Right upper lobe infiltrate. Radiographic follow-up recommended. Reading Location: [facility] 02/15/25 03:02 IMPRESSION: Right perihilar/right lower lobe multifocal pulmonary airspace disease/consolidations, probably pneumonia. Severe chronic right renal atrophy. Cholelithiasis without acute cholecystitis. No CT evidence of active bleeding during the time of the exam. Small sliding hiatal hernia. Mild gastritis. Uncomplicated colonic diverticulosis. Mild prostatomegaly. Tsang catheter in the bladder. Unremarkable metallic prostheses of the hips. Moderate diffuse spondylosis. Reading Location: [place] [address] Physical Exam Narrative General: Alert, no apparent distress HEENT: Atraumatic, normocephalic Eyes: Anicteric, normal conjunctiva, extraocular movements grossly intact Neck: Supple Respiratory: Clear to auscultation bilaterally, normal respiratory effort Cardiovascular: Regular rate and rhythm GI: Soft, no significant distention, nontender Extremities: No significant lower extremity edema edema Musculoskeletal: Moving all extremities but left hip Neuro: No overt focal neurological deficits Skin: No rashes appreciated Psych: Cooperative Assessment & Plan Assessment/Plan (1) Acute hypercapnic respiratory failure: (2) Coffee ground emesis: (3) Status post left hip replacement: (4) Diabetes: PLAN: Plan 79-year-old male history of diabetes and hypertension presented to [facility] 02/14/2025 for planned left hip replacement, postoperatively patient found to have hypercapnic respiratory failure and was admitted to the ICU on AVAPS, medicine consulted for postop medical management and patient's hypercapnic respiratory failure. # Coffee-ground emesis-found to have erosive esophagitis - patient with episode of emesis overnight, reportedly coffee-ground appearance and gastric occult positive - patient was made n.p.o. and started on Protonix drip with GI consult - CT abdomen with contrast demonstrated mild gastritis - Patient underwent upper endoscopy 02/15/2025 w/ LA grade C erosive esophagitis w/ no bleeding and with old blood in oropharynx and nasopharynx -Pt to resume diet and is resuming Eliquis tonight # acute hypercapnic respiratory failure?resolved - postoperatively patient with pCO2 in the 80s with pH of 7.15, initially placedon BiPAP and later changed to AVAPS. Chest x-ray with mild vascular congestion and right upper lobe infiltrate with possible pneumonia -Patient without any productive cough or elevated white blood cell count or other signs or symptoms that would suggest patient has pneumonia, this seems to be more likely related to sedation with anesthesia and possible untreated sleep apnea so holding off on empiric antibiotics -May need to consider repeat imaging in the future to verify improvement/resolution - patient's respiratory status improved with AVAPS - there is concern for undiagnosed sleep apnea by anesthesiologist, patient doesnot need acutely seen by fitness floor attendant due to improvement but would benefit from outpatient follow-up for possible sleep study/further workup and management #L total hip arthroplasty - with Dr. Galindo 02/14/2025 - management/pain management per patient's surgery team #Likely CKD stage IIIb - kidney function earlier this month with creatinine of 1.59, today slightly up to 1.76 - does not meet criteria for UTI - avoid nephrotoxic agents, will hold lisinopril given blood pressure and the uptrending creatinine - Patient did receive contrasted CT scan, given his need for Lasix postoperatively we will hold off on significant IV fluid bolus - Repeat in the a.m. #Type 2 diabetes mellitus -Glucose checks and sliding scale insulin - Will hold home glipizide during acute hospitalization #Hypertension - BP slightly on the lower side so holding antihypertensives #DVT ppx: Patient to resume Eliquis tonkelly Gamez MD Time spent in the patient's overall evaluation, decision-making process, review of diagnostic data, adjustment of management, discussion with other providers, nursing and ancillary staff involved in patient's care documentation, 52 Minutes Charges/Coding Visit Charges Inpatient E&M: 40034 Subs Hosp L3 02/15/25 1856 <Electronically signed by Shraddha Gamez MD> Cosigner Signature (if applicable): CC: ~ Signed [facility] Work Phone: 1(440) 328-459406-18-2025 Progress note [facility] Medical Records Department [address] [place] [address] Progress Note - Hospitalist 02/15/25 0743 MR#: [id number] Acct: [id number] Name: JEREMIAH VILLA Gabi Rep #:[id number] : 1945 79 From: Shraddha Gamez MD PCP: PRISCILLA Almanzar Status:ADM I N Location: ICU ICU02-1 Reason for Visit Reason for Visit: Diagnoses Acute respiratory failure with hypercapnia (02/14/25) Encounter for other preprocedural examination (02/14/25) Presence of left artificial hip joint (02/14/25) Subjective Subjective Patient sitting up in chair eating post endoscopy, reports he does not like the food but otherwise is feeling better, does have pain in the hip but no other newacute complaints, no abdominal pain, nonausea. Objective Data Objective Data Vital Signs: Vital Signs Temp Pulse Resp BP Pulse Ox O2 Del Method O2 Flow Rate 98.1 F 90 15 105/52 L 99 Nasal Cannula 2 02/15/25 06:00 02/15/25 07:00 02/15/25 07:00 02/15/25 07:00 02/15/25 07:13 02/15/25 07:13 02/15/25 07:13 FiO2 30 02/15/25 02:00 Oxygen Flow Rate (L/min) 2 Oxygen Delivery Method Nasal Cannula Weight: 123.2 kg Body Mass Index (BMI) 37.8 Intake & Output: Intake and Output for Last 24 Hours 02/13/25 02/14/25 02/15/25 23:59 23:59 23:59 Intake Total 4614.58 / 4614.58 110 / 110 Output Total 950 / 950 350 / 350 Balance 3664.58 / 3664.58 -240 / -240 Lab / Micro Data 02/15/25 08:20 02/15/25 03:18 Labs: Laboratory Results - last 24 hr 02/14/25 09:31: POC Glucose 278 H 02/14/25 13:51: POC Glucose 167 H 02/14/25 17:47: POC Glucose 100 02/14/25 18:20: NT pro BNP II 325 02/14/25 21:25: POC Glucose 190 H 02/15/25 03:18: WBC 10.7, RBC 4.34 L, Hgb 13.8, Hct 40.7, MCV 93.8, MCH 31.8, MCHC 33.9, RDW Std Deviation 45.3 H, RDW Coeff of Sherry 13.2, Plt Count 207, MPV 9.1, Immature Gran % (Auto) 0.200, Neut % (Auto) 79.6 H, Lymph % (Auto) 12.0 L, [place] % (Auto) 7.9, Eos % (Auto) 0.1, Baso % (Auto) 0.2, Absolute Neuts (auto) 8.5 H, Absolute Lymphs (auto) 1.28, Nucleated RBC % 0, Sodium 133, Potassium 4.4, Chloride 98, Carbon Dioxide 22.2, Anion Gap 12, BUN 17, Creatinine 1.76 H, Estim Creat Clear Calc 46.24 L, Est GFR (MDRD) Non-Af 39 L, BUN/Creatinine Ratio9.7 L, Glucose 183 H, Calcium 8.6 Micro: Microbiology 02/15/25 02:40 Vomitus Gastric Occult Blood - Final Occult Blood Positive ABG Data ABG results: ABG 02/14/25 02/14/25 02/14/25 14:30 15:55 19:39 Specimen Type ART ART Cancelled Sample Site R Brach R Brach Cancelled pH 7.15 L* 7.27 L Cancelled Bicarbonate Actual 29.2 H 27.2 H Cancelled Total CO2 32 29 Cancelled Base Excess 0 0 Cancelled O2 Saturation 94 L 94 L Cancelled O2 % 40.0 40.0 Cancelled ABG pCO2 84.8 H* 60.0 H Cancelled ABG pO2 94 83 Cancelled [place] Test Cancelled Respiration Rate 16 16 Cancelled O2 Delivery Device BiPAP BiPAP Cancelled Liter Flow Cancelled Minute Volume Cancelled Vent Mode Not entered Not entered Cancelled Inspiratory Time Cancelled Expiratory Time Cancelled Tidal Volume 500.0 Cancelled Mean Airway Pressure Cancelled POC PEEP 10 6 Cancelled Peak Inspir Pressure Cancelled POC Pressure Suppt Cancelled Pressure Control Cancelled Pressure High Cancelled Pressure Low Cancelled Time High Cancelled Time Low Cancelled EPAP Cancelled IPAP Cancelled Blood Gas Comments Cancelled Crit Call To/Read Back Yes Cancelled Blood Gas Notified Whom CALIXTO NUNEZ Cancelled Blood Gas Notified Time 14:32:13 Cancelled Clinical Comments AVAPS Cancelled Radiography Diagnostic Testing: Radiology Impression Hip X-Ray 02/14/25 13:30 IMPRESSION: Status post left total hip replacement. There is good alignment. Postoperative soft tissue changes. Reading Location: [facility] Chest X-Ray 02/14/25 15:06 IMPRESSION: Right upper lobe infiltrate. Radiographic follow-up recommended. Reading Location: [facility] 02/15/25 03:02 IMPRESSION: Right perihilar/right lower lobe multifocal pulmonary airspace disease/consolidations, probably pneumonia. Severe chronic right renal atrophy. Cholelithiasis without acute cholecystitis. No CT evidence of active bleeding during the time of the exam. Small sliding hiatal hernia. Mild gastritis. Uncomplicated colonic diverticulosis. Mild prostatomegaly. Tsang catheter in the bladder. Unremarkable metallic prostheses of the hips. Moderate diffuse spondylosis. Reading Location: [place] [address] Physical Exam Narrative General: Alert, no apparent distress HEENT: Atraumatic, normocephalic Eyes: Anicteric, normal conjunctiva, extraocular movements grossly intact Neck: Supple Respiratory: Clear to auscultation bilaterally, normal respiratory effort Cardiovascular: Regular rate and rhythm GI: Soft, no significant distention, nontender Extremities: No significant lower extremity edema edema Musculoskeletal: Moving all extremities but left hip Neuro: No overt focal neurological deficits Skin: No rashes appreciated Psych: Cooperative Assessment & Plan Assessment/Plan (1) Acute hypercapnic respiratory failure: (2) Coffee ground emesis: (3) Status post left hip replacement: (4) Diabetes: PLAN: Plan 79-year-old male history of diabetes and hypertension presented to [facility] 02/14/2025 for planned left hip replacement, postoperatively patient found to have hypercapnic respiratoryfailure and was admitted to the ICU on AVAPS, medicine consulted for postop medical management and patient's hypercapnic respiratory failure. # Coffee-ground emesis-found to have erosive esophagitis - patient with episode of emesis overnight, reportedly coffee-ground appearance and gastric occult positive - patient was made n.p.o. and started on Protonix drip with GI consult - CT abdomen with contrast demonstrated mild gastritis - Patient underwent upper endoscopy 02/15/2025 w/ LA grade C erosive esophagitis w/ no bleeding and with old blood in oropharynx and nasopharynx -Pt to resume diet and is resuming Eliquis tonight # acute hypercapnic respiratory failure?resolved - postoperatively patient with pCO2 in the 80s with pH of 7.15, initially placedon BiPAP and later changed to AVAPS. Chest x-ray with mild vascular congestion and right upper lobe infiltrate with possible pneumonia -Patient without any productive cough or elevated white blood cell count or other signs or symptomsthat would suggest patient has pneumonia, this seems to be more likely related to sedation with anesthesia and possible untreated sleep apnea so holding off on empiric antibiotics -May need to consider repeat imaging in the future to verify improvement/resolution - patient's respiratory status improved with AVAPS - there is concern for undiagnosed sleep apnea by anesthesiologist, patient doesnot need acutely seen by fitness floor attendant due to improvement but would benefit from outpatient follow-up for possible sleep study/further workup and management #L total hip arthroplasty - with Dr. Galindo 02/14/2025 - management/pain management per patient's surgery team #Likely CKD stage IIIb - kidney function earlier this month with creatinine of 1.59, today slightly up to 1.76 - does not meet criteria for UTI - avoid nephrotoxic agents, will hold lisinopril given blood pressure and the uptrending creatinine - Patient did receive contrasted CT scan, given his need for Lasix postoperatively we will hold offon significant IV fluid bolus - Repeat in the a.m. #Type 2 diabetes mellitus -Glucose checks and sliding scale insulin - Will hold home glipizide during acute hospitalization #Hypertension - BP slightly on the lower side so holding antihypertensives #DVT ppx: Patient to resume Eliquis tonight Shraddha Gamez MD Time spent in the patient's overall evaluation, decision-making process, review of diagnostic data,adjustment of management, discussion with other providers, nursing and ancillary staff involved in patient's care documentation, 52 Minutes Charges/Coding Visit Charges Inpatient E&M: 43607 Subs Hosp L3 02/15/25 1856 Cosigner Signature (if applicable): CC: ~ Signed [facility]06-18-2025 Consult note Author Ifeoma Dominique [facility] Note Date/Time February 15, 2025 4:37 pm [facility] Medical Records Department [address] [place] [address] Anesthesia Postop Eval II 02/15/251635 MR#: [id number] Acct: [id number] Name: JEREMIAH VILLA Rep #:[id number] : 1945 79 From: Ifeoma gerber CRNA PCP: PRISCILLA Almanzar Status:ADM I N Y Race: C Location: ICU ICU02 -1 Anesthesia Postop Eval I Sum Postop Eval Completion status Anesthesia document: Postop Eval 1 completed: Yes Anesthesia Postop Eval I Summary Anesthesia Postop Eval I Summary: Anesthesia Postop Eval I: Assessment Summary 3 Airway patent Yes 02/15/25 13:18 [email or web address] Spontaneous unlabored Yes 02/15/25 13:18 [email or web address] respirations Mental status Awake,Calm 02/15/25 16:29 [email or web address] nausea No 02/15/25 16:29 LEAFLET [email or web address] Vomiting No 02/15/25 16:29 LEAFLET [email or web address] Anesthesia Postop Eval I: Fluid Summary Crystalloid volume administer 300 02/15/25 13:18 [email or web address] (ml) Colloids volume administered ( ml) Blood Product volume administered (ml) Total IV fluid infused 300 02/15/25 13:18 [email or web address] Anesthesia Postop Eval I: Summary Notes Anesthesia Complication No 02/15/25 16:29 LEAFLET [email or web address] Anesthesia Complication Please see my 02/14/25 18:39 Comment: progress note. Post-operative progress note Anesthesia: Postop Eval II Evaluation Mental status: Awake and Calm Pain Level: 0 nausea: No Vomiting: No Complications Anesthesia Complication: No 02/15/251636 <Electronically signed by Ifeoma abad CRNA> Date _ Ifeoma Dominique CRNA Cosigner Signature: Date CC: ~ Signed [facility] Work Phone: 1(317) 578-346406-18-2025 Consult note Author Ifeoma Dominique [facility] Note Date/Time February 15, 2025 4:29 pm [facility] Medical Records Department [address] [place] [address] Anesthesia Postop Eval II 02/15/251627 MR#: [id number] Acct: [id number] Name: JEREMIAH VILLA Rep #:[id number] : 1945 79 From: Ifeoma gerber CRNA PCP: PRISCILLA Almanzar Status:ADM I N Y Race: C Location: ICU ICU02 - Anesthesia Postop Eval I Sum Postop Eval Completion status Anesthesia document: Postop Eval 1 completed: Yes Anesthesia Postop Eval I Summary Anesthesia Postop Eval I Summary: Anesthesia Postop Eval I: Assessment Summary 3 Airway patent Yes 02/15/25 13:18 [email or web address] Spontaneous unlabored Yes 02/15/25 13:18 [email or web address] respirations Mental status Awake 02/15/25 16:19 LEAFLET [email or web address].CSIR nausea No 02/15/25 16:19 LEAFLET DISTRIBUTOR.CSIR Vomiting No 02/15/25 16:19 LEAFLET [email or web address].CSIR Anesthesia Postop Eval I: Fluid Summary Crystalloid volume administer 300 02/15/25 13:18 [email or web address] (ml) Colloids volume administered ( ml) Blood Product volume administered (ml) Total IV fluid infused 300 02/15/25 13:18 [email or web address] Anesthesia Postop Eval I: Summary Notes Anesthesia Complication No 02/15/25 13:18 [email or web address] Anesthesia Complication Please see my 02/14/25 18:39 Comment: progress note. Post-operative progress note Anesthesia: Postop Eval II Evaluation Mental status: Awake and Calm Pain Level: 0 nausea: No Vomiting: No Complications Anesthesia Complication: No 02/15/259 <Electronically signed by Ifeoma abad CRNA> Date _ Ifeoma Dominique CRNA Cosigner Signature: Date CC: ~ Signed [facility] Work Phone: [phone] 142-121406-18-2025 Consult note Author Veronica Vasquez [facility] Note Date/Time February 15, 2025 4:20 pm [facility] Medical Records Department [address] [place] [address] Anesthesia Postop Eval II 02/15/25 1619 MR#: [id number] Acct: [id number] Name: JEREMIAH VILLA Rep #:[id number] : 1945 79 From: Veronica Vasquez CRNA PCP: PRISCILLA Almanzar Status:ADM I N Y Race: C Location: ICU ICU02 -1 Anesthesia Postop Eval I Sum Postop Eval Completion status Anesthesia document: Postop Eval 1 completed: Yes Anesthesia Postop Eval I Summary Anesthesia Postop Eval I Summary: Anesthesia Postop Eval I: Assessment Summary Airway patent Yes 02/15/25 13:18 [email or web address] Spontaneous unlabored Yes 02/15/25 13:18 [email or web address] respirations Mental status Awake,Calm 02/15/25 13:18 [email or web address] nausea No 02/15/25 13:18 [email or web address] Vomiting No 02/15/25 13:18 [email or web address] Anesthesia Postop Eval I: Fluid Summary Crystalloid volume administer 300 02/15/25 13:18 [email or web address] (ml) Colloids volume administered ( ml) Blood Product volume administered (ml) Total IV fluid infused 300 02/15/25 13:18 [email or web address] Anesthesia Postop Eval I: Summary Notes Anesthesia Complication No 02/15/25 13:18 [email or web address] Anesthesia Complication Please see my 02/14/25 18:39 Comment: progress note. Post-operative progress note Anesthesia: Postop Eval II Evaluation Mental status: Awake Pain Level: 0 nausea: No Vomiting: No 02/15/25 1620 <Electronically signed by Veronica kat LEAFLET DISTRIBUTOR> Date _ Veronica Vernonigner Signature: Date CC: ~ Signed [facility] Work Phone: [phone] 813-850106-18-2025 Progress note Author Rasheed Galindo [facility] Note Date/Time February 15, 2025 3:54 pm [facility] Medical Records Department [address] [place] [address] Progress Note - Orthopedic 02/15/25 1550 MR#: [id number] Acct: [id number] Name: JEREMIAH VILLA Rep #:[id number] : 1945 79 From: Rasheed Galindo DO PCP: PRISCILLA Almanzar Status:ADM I N Location: ICU ICU02-1 Subjective Subjective Seen and examined. Doing okay hip pain controlled. Does not that the pain fromhis knee down to his foot he believes started today after his EGD. No new chestpain or shortness of breath he states he is always a little short of breath but nothing out of the ordinary. Objective Data Objective Data Vital Signs: Vital Signs Temp Pulse Resp BP Pulse Ox O2 Del Method O2 Flow Rate 97.8 F 97 23 H 103/62 99 Room Air 2 02/15/25 14:00 02/15/25 15:00 02/15/25 15:00 02/15/25 15:00 02/15/25 15:00 02/15/25 15:00 02/15/25 12:39 FiO2 30 02/15/25 12:39 Oxygen Flow Rate (L/min) 2 Oxygen Delivery Method Room Air Weight: 271 lb 9.752 oz Body Mass Index (BMI) 37.8 Intake & Output: Intake and Output for Last 24 Hours 02/13/25 02/14/25 02/15/25 23:59 23:59 23:59 Intake Total 4614.58 / 4614.58 315.5 / 315.5 Output Total 950 / 950 400 / 400 Balance 3664.58 / 3664.58 -84.5 / -84.5 Lab / Micro Data 02/15/25 08:20 02/15/25 03:18 Labs: Laboratory Results - last 24 hr 02/14/25 17:47: POC Glucose 100 02/14/25 18:20: NT pro BNP II 325 02/14/25 21:25: POC Glucose 190 H 02/15/25 03:18: WBC 10.7, RBC 4.34 L, Hgb 13.8, Hct 40.7, MCV 93.8, MCH 31.8, MCHC 33.9, RDW Std Deviation 45.3 H, RDW Coeff of Sherry 13.2, Plt Count 207, MPV 9.1, Immature Gran % (Auto) 0.200, Neut % (Auto) 79.6 H, Lymph % (Auto) 12.0 L, [place] % (Auto) 7.9, Eos % (Auto) 0.1, Baso % (Auto) 0.2, Absolute Neuts (auto) 8.5 H, Absolute Lymphs (auto) 1.28, Nucleated RBC % 0, Sodium 133, Potassium 4.4, Chloride 98, Carbon Dioxide 22.2, Anion Gap 12, BUN 17, Creatinine 1.76 H, Estim Creat Clear Calc 46.24 L, Est GFR (MDRD) Non-Af 39 L, BUN/Creatinine Ratio9.7 L, Glucose 183 H, Calcium 8.6 02/15/25 08:20: WBC 12.2 H, RBC 3.99 L, Hgb 12.4 L, Hct 36.9 L, MCV 92.5, MCH 31.1, MCHC 33.6, RDW Std Deviation 44.8 H, RDW Coeff of Sherry 13.2, Plt Count 199,MPV 9.2 Micro: Microbiology 02/15/25 02:40 Vomitus Gastric Occult Blood - Final Occult Blood Positive ABG Data ABG results: ABG 02/14/25 02/14/25 15:55 19:39 Specimen Type ART Cancelled Sample Site R Brach Cancelled pH 7.27 L Cancelled Bicarbonate Actual 27.2 H Cancelled Total CO2 29 Cancelled Base Excess 0 Cancelled O2 Saturation 94 L Cancelled O2 % 40.0 Cancelled ABG pCO2 60.0 H Cancelled ABG pO2 83 Cancelled [place] Test Cancelled Respiration Rate 16 Cancelled O2 Delivery Device BiPAP Cancelled Liter Flow Cancelled Minute Volume Cancelled Vent Mode Not entered Cancelled Inspiratory Time Cancelled Expiratory Time Cancelled Tidal Volume Cancelled Mean Airway Pressure Cancelled POC PEEP 6 Cancelled Peak Inspir Pressure Cancelled POC Pressure Suppt Cancelled Pressure Control Cancelled Pressure High Cancelled Pressure Low Cancelled Time High Cancelled Time Low Cancelled EPAP Cancelled IPAP Cancelled Blood Gas Comments Cancelled Crit Call To/Read Back Cancelled Blood Gas Notified Whom Cancelled Blood Gas Notified Time Cancelled Clinical Comments Cancelled Radiography Diagnostic Testing: Radiology Impression Abdomen CT 02/15/25 03:02 IMPRESSION: Right perihilar/right lower lobe multifocal pulmonary airspace disease/consolidations, probably pneumonia. Severe chronic right renal atrophy. Cholelithiasis without acute cholecystitis. No CT evidence of active bleeding during the time of the exam. Small sliding hiatal hernia. Mild gastritis. Uncomplicated colonic diverticulosis. Mild prostatomegaly. Tsang catheter in the bladder. Unremarkable metallic prostheses of the hips. Moderate diffuse spondylosis. Reading Location: [place] [address] Physical Exam Const alert, oriented x3 and no apparent distress General Appearance: cooperative Extremity Extremity Narrative: Left hip dressing clean dry intact compartments soft neurovascular intact left lower extremity he has some mild swelling around his pes bursa no significant swelling in the leg is able to plantarflex and dorsiflex the ankle without any difficulty or pain there is no joint effusion in the knee. Assessment & Plan Assessment/Plan (1) Acute hypercapnic respiratory failure: (2) Status post left hip replacement: (3) Coffee ground emesis: PLAN: Plan Postop day #1 left total hip arthroplasty PT OT weightbearing as tolerated Patient is not moving around very well yet will likely require rehab waiting on bed for Thursday EGD relatively unremarkable I would like to resume his Eliquis immediately I diddiscuss with his nurse she will check with Dr. Ramirez and if okay we will start it up tonight Patient likely can be moved out of ICU to [facility] if okay with hospitalist againnursing will check with the hospitalist History of DVT PE resume Eliquis as soon as medically able SCDs ELLY hose Pain control oxycodone and Tylenol 02/15/25 1554 <Electronically signed by Rasheed Galindo DO> Cosigner Signature (if applicable): CC: ~ Signed [facility] Work Phone: 1(242) 968-112806-18-2025 Consult note [facility] Medical Records Department [address] [place] [address] Anesthesia Postop Eval II 02/15/25 1636 MR#: [id number] Acct: [id number] Name: JEREMIAH VILLA Rep #:[id number] : 1945 79 From: Ifeoma gerber LEAFLET DISTRIBUTOR PCP: PRISCILLA Almanzar Status:ADM I N Y Race: C Location: ICU ICU02 - Anesthesia Postop Eval I Sum Postop Eval Completion status Anesthesia document: Postop Eval 1 completed: Yes Anesthesia Postop Eval I Summary Anesthesia Postop Eval I Summary: Anesthesia Postop Eval I: Assessment Summary 3 Airway patent Yes 02/15/25 13:18 [email or web address] Spontaneous unlabored Yes 02/15/25 13:18 [email or web address] respirations Mental status Awake,Calm 02/15/25 16:29 LEAFLET [email or web address] nausea No 02/15/25 16:29 LEAFLET [email or web address].[email or web address] Vomiting No 02/15/25 16:29 LEAFLET [email or web address].[email or web address] Anesthesia Postop Eval I: Fluid Summary Crystalloid volume administer 300 02/15/25 13:18 [email or web address] (ml) Colloids volume administered ( ml) Blood Product volume administered (ml) Total IV fluid infused 300 02/15/25 13:18 [email or web address] Anesthesia Postop Eval I: Summary Notes Anesthesia Complication No 02/15/25 16:29 LEAFLET [email or web address] Anesthesia Complication Please see my 02/14/25 18:39 Comment: progress note. Post-operative progress note Anesthesia: Postop Eval II Evaluation Mental status: Awake and Calm Pain Level: 0 nausea: No Vomiting: No Complications Anesthesia Complication: No 02/15/25 1637 nski LEAFLET DISTRIBUTOR> Date _ Ifeoma Dominique LEAFLET DISTRIBUTOR Cosigner Signature: Date CC: ~ Signed [facility]06-18-2025 Consult note [facility] Medical Records Department [address] [place] [address] Anesthesia Postop Eval II 02/15/25 1628 MR#: [id number] Acct: [id number] Name: JEREMIAH VILLA Rep #:[id number] : 1945 79 From: Ifeoma gerber LEAFLET DISTRIBUTOR PCP: PRISCILLA Almanzar Status:ADM I N Y Race: C Location: ICU ICU02 - Anesthesia Postop Eval I Sum Postop Eval Completion status Anesthesia document: Postop Eval 1 completed: Yes Anesthesia Postop Eval I Summary Anesthesia Postop Eval I Summary: Anesthesia Postop Eval I: Assessment Summary 3 Airway patent Yes 02/15/25 13:18 [email or web address] Spontaneous unlabored Yes 02/15/25 13:18 [email or web address] respirations Mental status Awake 02/15/25 16:19 LEAFLET [email or web address].CSIR nausea No 02/15/25 16:19 LEAFLET DISTRIBUTOR.CSIR Vomiting No 02/15/25 16:19 LEAFLET DISTRIBUTOR.CSIR Anesthesia Postop Eval I: Fluid Summary Crystalloid volume administer 300 02/15/25 13:18 [email or web address] (ml) Colloids volume administered ( ml) Blood Product volume administered (ml) Total IV fluid infused 300 02/15/25 13:18 [email or web address] Anesthesia Postop Eval I: Summary Notes Anesthesia Complication No 02/15/25 13:18 [email or web address] Anesthesia Complication Please see my 02/14/25 18:39 Comment: progress note. Post-operative progress note Anesthesia: Postop Eval II Evaluation Mental status: Awake and Calm Pain Level: 0 nausea: No Vomiting: No Complications Anesthesia Complication: No 02/15/25 1629 [email or web address] LEAFLET DISTRIBUTOR> Date _ Ifeoma Catina LEAFLET DISTRIBUTOR Cosigner Signature: Date CC: ~ Signed [facility]06-18-2025 Consult note [facility] Medical Records Department [address] [place] [address] Anesthesia Postop Eval II 02/15/25 1619 MR#: [id number] Acct: [id number] Name: JEREMIAH VILLA Rep #:[id number] : 1945 79 From: Veronica Vasquez CRNA PCP: PRISCILLA Almanzar Status:ADM I N Y Race: C Location: ICU ICU02 - Anesthesia Postop Eval I Sum Postop Eval Completion status Anesthesia document: Postop Eval 1 completed: Yes Anesthesia Postop Eval I Summary Anesthesia Postop Eval I Summary: Anesthesia Postop Eval I: Assessment Summary Airway patent Yes 02/15/25 13:18 [email or web address] Spontaneous unlabored Yes 02/15/25 13:18 [email or web address] respirations Mental status Awake,Calm 02/15/25 13:18 [email or web address] nausea No 02/15/25 13:18 [email or web address] Vomiting No 02/15/25 13:18 [email or web address] Anesthesia Postop Eval I: Fluid Summary Crystalloid volume administer 300 02/15/25 13:18 [email or web address] (ml) Colloids volume administered ( ml) Blood Product volume administered (ml) Total IV fluid infused 300 02/15/25 13:18 [email or web address] Anesthesia Postop Eval I: Summary Notes Anesthesia Complication No 02/15/25 13:18 [email or web address] Anesthesia Complication Please see my 02/14/25 18:39 Comment: progress note. Post-operative progress note Anesthesia: Postop Eval II Evaluation Mental status: Awake Pain Level: 0 nausea: No Vomiting: No 02/15/25 1620 a LEAFLET DISTRIBUTOR> Date _ Veronica Vernonigner Signature: Date CC: ~ Signed [facility]06-18-2025 Progress note [facility] Medical Records Department [address] [place] [address] Progress Note - Orthopedic 02/15/25 1550 MR#: [id number] Acct: [id number] Name: JEREMIAH VILLA Rep #:[id number] : 1945 79 From: Rasheed Galindo DO PCP: PRISCILLA Almanzar Status:ADM I N Location: ICU ICU02-1 Subjective Subjective Seen and examined. Doing okay hip pain controlled. Does not that the pain fromhis knee down to his foot he believes started today after his EGD. No new chestpain or shortness of breath he states he is always a little short of breath but nothing out of the ordinary. Objective Data Objective Data Vital Signs: Vital Signs Temp Pulse Resp BP Pulse Ox O2 Del Method O2 Flow Rate 97.8 F 97 23 H 103/62 99 Room Air 2 02/15/25 14:00 02/15/25 15:00 02/15/25 15:00 02/15/25 15:00 02/15/25 15:00 02/15/25 15:00 02/15/25 12:39 FiO2 30 02/15/25 12:39 Oxygen Flow Rate (L/min) 2 Oxygen Delivery Method Room Air Weight: 271 lb 9.752 oz Body Mass Index (BMI) 37.8 Intake & Output: Intake and Output for Last 24 Hours 02/13/25 02/14/25 02/15/25 23:59 23:59 23:59 Intake Total 4614.58 / 4614.58 315.5 / 315.5 Output Total 950 / 950 400 / 400 Balance 3664.58 / 3664.58 -84.5 / -84.5 Lab / Micro Data 02/15/25 08:20 02/15/25 03:18 Labs: Laboratory Results - last 24 hr 02/14/25 17:47: POC Glucose 100 02/14/25 18:20: NT pro BNP II 325 02/14/25 21:25: POC Glucose 190 H 02/15/25 03:18: WBC 10.7, RBC 4.34 L, Hgb 13.8, Hct 40.7, MCV 93.8, MCH 31.8, MCHC 33.9, RDW Std Deviation 45.3 H, RDW Coeff of Sherry 13.2, Plt Count 207, MPV 9.1, Immature Gran % (Auto) 0.200, Neut % (Auto) 79.6 H, Lymph % (Auto) 12.0 L, [place] % (Auto) 7.9, Eos % (Auto) 0.1, Baso % (Auto) 0.2, Absolute Neuts (auto) 8.5 H, Absolute Lymphs (auto) 1.28, Nucleated RBC % 0, Sodium 133, Potassium 4.4, Chloride 98, Carbon Dioxide 22.2, Anion Gap 12, BUN 17, Creatinine 1.76 H, Estim Creat Clear Calc 46.24 L, Est GFR (MDRD) Non-Af 39 L, BUN/Creatinine Ratio9.7 L, Glucose 183 H, Calcium 8.6 02/15/25 08:20: WBC 12.2 H, RBC 3.99 L, Hgb 12.4 L, Hct 36.9 L, MCV 92.5, MCH 31.1, MCHC 33.6, RDW Std Deviation 44.8 H, RDW Coeff of Sherry 13.2, Plt Count 199,MPV 9.2 Micro: Microbiology 02/15/25 02:40 Vomitus Gastric Occult Blood - Final Occult Blood Positive ABG Data ABG results: ABG 02/14/25 02/14/25 15:55 19:39 Specimen Type ART Cancelled Sample Site R Brach Cancelled pH 7.27 L Cancelled Bicarbonate Actual 27.2 H Cancelled Total CO2 29 Cancelled Base Excess 0 Cancelled O2 Saturation 94 L Cancelled O2 % 40.0 Cancelled ABG pCO2 60.0 H Cancelled ABG pO2 83 Cancelled [place] Test Cancelled Respiration Rate 16 Cancelled O2 Delivery Device BiPAP Cancelled Liter Flow Cancelled Minute Volume Cancelled Vent Mode Not entered Cancelled Inspiratory Time Cancelled Expiratory Time Cancelled Tidal Volume Cancelled Mean Airway Pressure Cancelled POC PEEP 6 Cancelled Peak Inspir Pressure Cancelled POC Pressure Suppt Cancelled Pressure Control Cancelled Pressure High Cancelled Pressure Low Cancelled Time High Cancelled Time Low Cancelled EPAP Cancelled IPAP Cancelled Blood Gas Comments Cancelled Crit Call To/Read Back Cancelled Blood Gas Notified Whom Cancelled Blood Gas Notified Time Cancelled Clinical Comments Cancelled Radiography Diagnostic Testing: Radiology Impression Abdomen CT 02/15/25 03:02 IMPRESSION: Right perihilar/right lower lobe multifocal pulmonary airspace disease/consolidations, probably pneumonia. Severe chronic right renal atrophy. Cholelithiasis without acute cholecystitis. No CT evidence of active bleeding during the time of the exam. Small sliding hiatal hernia. Mild gastritis. Uncomplicated colonic diverticulosis. Mild prostatomegaly. Tsang catheter in the bladder. Unremarkable metallic prostheses of the hips. Moderate diffuse spondylosis. Reading Location: [place] [address] Physical Exam Const alert, oriented x3 and no apparent distress General Appearance: cooperative Extremity Extremity Narrative: Left hip dressing clean dry intact compartments soft neurovascular intact left lower extremity he has some mild swelling around his pes bursa no significant swelling in the leg is able to plantarflexand dorsiflex the ankle without any difficulty or pain there is no joint effusion in the knee. Assessment & Plan Assessment/Plan (1) Acute hypercapnic respiratory failure: (2) Status post left hip replacement: (3) Coffee ground emesis: PLAN: Plan Postop day #1 left total hip arthroplasty PT OT weightbearing as tolerated Patient is not moving around very well yet will likely require rehab waiting on bed for Thursday EGD relatively unremarkable I would like to resume his Eliquis immediately I diddiscuss with his nurse she will check with Dr. Ramirez and if okay we will start it up tonight Patient likely can be moved out of ICU to [facility] if okay with hospitalist againnursing will check with the hospitalist History of DVT PE resume Eliquis as soon as medically able SCDs ELLY hose Pain control oxycodone and Tylenol 02/15/25 3004 Cosigner Signature (if applicable): CC: ~ Signed [facility]06-18-2025 Consult note Author Johnson Butler [facility] Note Date/Time February 15, 2025 1:18 pm [facility] Medical Records Department [address] [place] [address] Anesthesia Postop Eval I 02/15/25 1318 MR#: [id number] Acct: [id number] Name: JEREMIAH VILLA Rep #:[id number] : 1945 79 From: Johnson Butler PCP: Dr. Tess Hernandez MD Status:ADM I N Y Race: C Location: ICU ICU02 -1 Anesthesia: Postop Eval I Current Vital Signs Temperature: 98.6 F Pulse Rate: 95 Blood Pressure: 116/90 Respiratory Rate: 18 Pulse Ox: 98 Oxygen Delivery Method: Room Air Assessment Airway patent: Yes Spontaneous unlabored respirations: Yes Mental status: Awake and Calm nausea: No Vomiting: No Anesthesia Complication: No Fluid Hydration Crystalloid volume administer (ml): 300 Total IV fluid infused: 300 Progress Note Anesthesia document: Postop Eval 1 completed: Yes 02/15/251317 <Electronically signed by Johnson Butler > Date _ Johnson Gutierrez Signature: Date CC: ~ Signed [facility] Work Phone: 1(297) 940-787006-18-2025 Consult note Author Markie Piper [facility] Note Date/Time February 15, 2025 12:3 9pm [facility] Medical Records Department [address] [place] [address] Pre-Anesthesia Evaluation 02/15/25 1231 MR#: [id number] Acct: [id number] Name: JEREMIAH VILLA Rep #:[id number] : 1945 79 From: Markie Piper MD PCP: Dr. Tess Hernandez MD Status:ADM I N Y Race: C Location: ICU ICU02 - ASA Classification* ASA Classification ASA Classification: 3 Assessment & Plan Anesthesia* Anesthesia Assessment Anesthesia Assessment: Discussed sedation and/or anesthesia options, risks, benefits, and alternatives with patient/parents/legal guardian/POA. Questions invited. The patient/parents/legal guardian/POA seems to understand and agrees to proceedwith anesthesia plan. Reviewed the physical assessment, medical history, allergy history and patient home medications list prior to surgery/procedure/anesthetic and documented any changes. Performed airway and anesthesia risk assessments. Anesthesia Type Anesthesia Type: MAC History Source History Obtained from:: Patient and Chart Anesthesia Focused Assessment* Temperature: 97.8 F Pulse Rate: 94 Blood Pressure: 122/54 Respiratory Rate: 19 Pulse Ox: 93 Oxygen Delivery Method: Room Air Oxygen Flow Rate (L/min): 2 Fraction of Inspired Oxygen (FIO2): 30 Airway Assessment Mouth opens: >3 cm Mallampati Score: III Teeth Condition: Missing (Patient has several missing teeth.) Neck Range of motion (ROM): Limited ROM Labs Anesthesia Preop lab: CBC WBC 12.2 K/mm3 (4.4-11.0) H 02/15/25 08:20 5 RBC 3.99 M/mm3 (4.6-6.2) L 02/15/25 08:20 02/15/25 Hgb 12.4 g/dL (13.0-16.5) L 02/15/25 08:20 5 Hct 36.9 % (40-54) L 02/15/25 08:20 02/15/25 Plt Count 199 K/mm3 (150-450) 02/15/25 08:20 02/15/25 CHEMISTRY Potassium 4.4 mmol/L (3.3-5.1) 02/15/25 03:18 02/15/25 Sodium 133 mmol/L (133-145) 02/15/25 03:18 02/15/25 Magnesium 2.2 mg/dL (1.5-2.2) 02/03/25 12:12 02/03/25 BUN 17 mg/dL (4-19) 02/15/25 03:18 02/15/25 Creatinine 1.76 mg/dL (0.70-1.20) H 02/15/25 03:18 Glucose 183 mg/dL (70-99) H 02/15/25 03:18 02/15/25 POC Glucose 190 mg/dL (74-106) H 02/14/25 21:25 02/14/25 COAG PT 13.0 SECONDS (11.7-14.9) 02/03/25 12:12 Pre-Assessment Diagnosis/Proposed Procedure Planned Operative Procedure(s): EGD Anesthesia History 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 When Was Last Pacemaker Check QUESTION #4 FULL TEXT: You/Your Family Experience fever (hyperthermia) with Anesthesia Last Oral Intake Last Oral intake: Last Oral Intake NPO since 00:00 02/15/25 12:04 Meds taken in AM with sips of Yes 02/14/25 10:06 water? 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 Female No 02/07/25 12:20 HX of Motion Sickness No 02/07/25 12:20 HX of N/V After Surgery No 02/07/25 12:20 Non-Smoker Yes 02/07/25 12:20 Duration of Surgery greater Yes 02/07/25 12:20 than 60 minutes Number of Risk Factors 2 02/07/25 12:20 PONV Score Moderate Risk 02/07/25 12:20 Height & Weight Height & Weight: Anesthesia: Height & Weight Height 5 ft 11 in 02/15/25 12:04 Weight: 123.2 kg 02/15/25 12:04 Body Mass Index (BMI) 37.8 02/15/25 12:04 Respiratory Assessment Respiratory Assessment - quarry supervisor open pit: Respiratory Tract Infection Hx - 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 Has anyone observed you stop No 02/14/25 16:46 breathing during sleep? STOP Results Positive 02/14/25 16:46 QUESTION #5 FULL TEXT : Do you snore loudly (louder than talking or can be heard through closed doors)? 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 Specify any problems Hx of Preganancy in last 3 N/A 02/14/25 16:46 Months Nurse Filling Out Transfusion KESTEP 02/14/25 16:46 & Questions: Date: 02/14/25 02/14/25 16:46 Time: 17:20 02/14/25 16:46 Patient unable to answer at this time (ie. 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 supervisor open pit: /Reproductive Hx- quarry supervisor open pit Hx Now No 02/07/25 12:20 Gestational Age (in weeks): EDC: Hx Hx Para Hx Section SAB No 02/07/25 12:20 Active Medications Active Medications: Current Medications Generic Name Dose Route Start Last Admin Trade Name Freq PRN Reason Stop Dose Admin Acetaminophen 1,000 mg 02/14/25 18:30 02/15/25 07:42 Acetaminophen 500 Mg Tablet PO Not Given Q8H SILVER Apixaban 2.5 mg 02/15/25 07:00 Apixaban 2.5 Mg Tablet ([facility]) PO BID [facility] Cholecalciferol 25 mcg 02/15/25 10:00 02/15/25 07:42 Cholecalciferol (Vit D3) 25 Mcg Tablet (1,000 Units) PO Not Given DAILY [facility] Enteral Nutritional Formula 237 ml 02/14/25 17:00 02/15/25 12:00 Ensure Surgery 237 Ml Liquid PO Not Given TIDCM [facility] Glucagon 1 mg 02/14/25 16:39 Glucagon 1 Mg/Ml Syringe IM X1 PRN Hypoglycemia Protocol Dextrose 250 mls @ 0 mls/hr 02/14/25 16:39 Dextrose 10%-Water IV .Q0M PRN HYPOGLYCEMIA Protocol As Directed Sodium Chloride 250 mls @ 15 mls/hr 02/14/25 16:56 IV .[id number] PRN Saline Flush Sodium Chloride 250 mls @ 15 mls/hr 02/14/25 16:56 IV .[id number] PRN Additional IVPB Infusion Pantoprazole Sodium 80 mg/ 100 mls @ 10 mls/hr 02/15/25 03:05 02/15/25 04:34 Sodium Chloride CONT INF 10 mls/hr Q10H SILVER Administration Insulin Human Lispro 0 unit 02/14/25 16:55 02/15/25 11:59 Insulin Lispro 100 Unit/Ml Insuln.Pen SC Not Given ACHS [facility] Protocol Ondansetron HCl 4 mg 02/14/25 13:30 02/15/25 02:39 Ondansetron 4 Mg/2 Ml Vial IV 4 mg Q8H PRN PRN Administration NAUSEA Oxycodone HCl 5 - 10 mg 02/14/25 13:30 Oxycodone 5 Mg Tablet PO Q4H PRN PRN Pain Score 4-10 Senna/Docusate Sodium 2 tablet 02/14/25 22:00 02/15/25 07:42 Senna/Docusate Sodium 1 Tablet PO Not Given BID [facility] Sodium Chloride 10 - 40 ml 02/14/25 16:56 02/15/25 08:22 0.9% Saline Lock 10 Ml Syringe IV 10 ml UD PRN Administration SALINE FLUSH [facility] Medical History Wears glasses Wears partial dentures Alcohol use Rash Walker as ambulation aid Arthritis History of renal disease High cholesterol Back pain Syncope Dietary restriction Constipation Chewing tobacco use History of pain when walking Hypertension Pulmonary embolism Diabetes Home Medications ?Medication ?Instructions ?Recorded ?Last Taken ?Type glipizide 5 mg tablet 5 mg PO BID BLOOD GLUCOSE 02/13/25 History ascorbic acid (vitamin C) 1,000 mg 2,000 mg PO DAILY S UPPLEMENT 02/07/25 02/13/25 History tablet,extended release (C Complex) cholecalciferol (vitamin D3) 25 25 mcg PO DAILY SUPPLE MENT 02/07/25 02/13/25 History mcg (1,000 unit) tablet (Vitamin D3) lisinopril 5 mg tablet 5 mg PO BID KIDNEY PREVENTIO N 02/07/25 02/13/25 History magnesium 250 mg tablet 750 mg PO DAILY SUPPLEMENT 0 02/07/25 02/13/25 History saw palm 160 mg-vit E 100 2 tab PO TID SUPPLEMENT 01/2902/13/25 History unit-selen 100 pva-dwfg-cdgdiv-pygeum tablet ([facility]) vitamin K2 100 mcg capsule 100 mcg PO DAILY SUPPLEMENT 02/07/25 02/13/25 History Allergy/AdvReac Type Severity Reaction Status Date / Time No Known Allergies Allergy Verified 02/14/25 10:16 Surgical History Hx of right cataract extraction Hx of left cataract extraction Hx of appendectomy History of right hip replacement Social History Smoking Status: Former smoker Smokeless tobacco user: snuff alcohol intake: current alcohol intake frequency: holidays/special occasions only Review of Systems (Anesthesia) ROS Narrative System reviewed and no additional complaints, except as documented. 02/15/25 4796 <Electronically signed by Markie alexandre MD> Date _ Markie Piper MD Cosigner Signature: Date CC: ~ Signed [facility] Work Phone: [phone]) 278-832406-18-2025 Consult note Author Marco A Ramirez [facility] Note Date/Time February 15, 2025 12:1 9pm [facility] Medical Records Department [address] [place] [address] Consultation - GI 02/15/25 1216 MR#: [id number] Acct: [id number] Name: JEREMIAH VILLA Rep #:[id number] : 1945 79 From: Marco A Ramirez DO PCP: Dr. Tess Hernandez MD Status:ADM I N Location: ICU ICU02-1 HPI Consult Data Date of Consult: 02/15/25 Attending Care Provider: Coffee-ground emesis HPI Narrative HPI Narrative: JEREMIAH VILLA, is a 79-year-old male who presented [facility] on 02/14/25 for planned left hip replacement. Unfortunately after his successful left hip replacement he developed hypercapnic respiratory failure. I was asked to see him this morning due to multiple episodes of coffee-ground emesis. Chestx-ray showed mild vascular congestion and right upper lobe infiltrate, possible pneumonia. He is on DVT prophylaxis. Addressed multiple episodes of coffee-ground emesis he was started on a PPI drip. [facility] Medical History Wears glasses Wears partial dentures Alcohol use Rash Walker as ambulation aid Arthritis History of renal disease High cholesterol Back pain Syncope Dietary restriction Constipation Chewing tobacco use History of pain when walking Hypertension Pulmonary embolism Diabetes Home Medications ?Medication ?Instructions ?Recorded ?Last Taken ?Type glipizide 5 mg tablet 5 mg PO BID BLOOD GLUCOSE 02/13/25 History ascorbic acid (vitamin C) 1,000 mg 2,000 mg PO DAILY S UPPLEMENT 02/07/25 02/13/25 History tablet,extended release (C Complex) cholecalciferol (vitamin D3) 25 25 mcg PO DAILY SUPPLE MENT 02/07/25 02/13/25 History mcg (1,000 unit) tablet (Vitamin D3) lisinopril 5 mg tablet 5 mg PO BID KIDNEY PREVENTIO N 02/07/25 02/13/25 History magnesium 250 mg tablet 750 mg PO DAILY SUPPLEMENT 0 02/07/25 02/13/25 History saw palm 160 mg-vit E 100 2 tab PO TID SUPPLEMENT 01/2902/13/25 History unit-selen 100 rge-ujiz-hjblzj-pygeum tablet ([facility]) vitamin K2 100 mcg capsule 100 mcg PO DAILY SUPPLEMENT 02/07/25 02/13/25 History Allergy/AdvReac Type Severity Reaction Status Date / Time No Known Allergies Allergy Verified 02/14/25 10:16 Surgical History Hx of right cataract extraction Hx of left cataract extraction Hx of appendectomy History of right hip replacement Social History Smoking Status: Former smoker Smokeless tobacco user: snuff alcohol intake: current alcohol intake frequency: holidays/special occasions only ROS Constitutional Constitutional: Denies fatigue, fever(s), poor appetite, weight gain or weight loss Gastrointestinal Gastrointestinal: Denies belching, bloating, change in bowel habits, change in stool character, chewing difficulty, coffee ground emesis, constipation, cramping, diarrhea, dyspepsia, dysphagia, early satiety, excessive flatus, fecalincontinence, heartburn, hematemesis, hematochezia, hemorrhoids, loose stools, melena, nausea, odynophagia, rectal bleeding, tenesmus, vomiting or weight changes Physical Exam Const alert, oriented x3, no apparent distress and healthy appearing General Appearance: cooperative GI normal to inspection, nondistended, normoactive bowel sounds, soft to palpation,non-tender and non-distended Percussion: normal to percussion Rectal Exam: deferred Lab / Micro Data 02/15/25 08:20 02/15/25 03:18 Labs: Laboratory Results - last 24 hr 02/14/25 13:51: POC Glucose 167 H 02/14/25 17:47: POC Glucose 100 02/14/25 18:20: NT pro BNP II 325 02/14/25 21:25: POC Glucose 190 H 02/15/25 03:18: WBC 10.7, RBC 4.34 L, Hgb 13.8, Hct 40.7, MCV 93.8, MCH 31.8, MCHC 33.9, RDW Std Deviation 45.3 H, RDW Coeff of Sherry 13.2, Plt Count 207, MPV 9.1, Immature Gran % (Auto) 0.200, Neut % (Auto) 79.6 H, Lymph % (Auto) 12.0 L, [place] % (Auto) 7.9, Eos % (Auto) 0.1, Baso % (Auto) 0.2, Absolute Neuts (auto) 8.5 H, Absolute Lymphs (auto) 1.28, Nucleated RBC % 0, Sodium 133, Potassium 4.4, Chloride 98, Carbon Dioxide 22.2, Anion Gap 12, BUN 17, Creatinine 1.76 H, Estim Creat Clear Calc 46.24 L, Est GFR (MDRD) Non-Af 39 L, BUN/Creatinine Ratio9.7 L, Glucose 183 H, Calcium 8.6 02/15/25 08:20: WBC 12.2 H, RBC 3.99 L, Hgb 12.4 L, Hct 36.9 L, MCV 92.5, MCH 31.1, MCHC 33.6, RDW Std Deviation 44.8 H, RDW Coeff of Sherry 13.2, Plt Count 199,MPV 9.2 Micro: Microbiology 02/15/25 02:40 Vomitus Gastric Occult Blood - Final Occult Blood Positive ABG Data ABG results: ABG 02/14/25 02/14/25 02/14/25 14:30 15:55 19:39 Specimen Type ART ART Cancelled Sample Site R Brach R Brach Cancelled pH 7.15 L* 7.27 L Cancelled Bicarbonate Actual 29.2 H 27.2 H Cancelled Total CO2 32 29 Cancelled Base Excess 0 0 Cancelled O2 Saturation 94 L 94 L Cancelled O2 % 40.0 40.0 Cancelled ABG pCO2 84.8 H* 60.0 H Cancelled ABG pO2 94 83 Cancelled [place] Test Cancelled Respiration Rate 16 16 Cancelled O2 Delivery Device BiPAP BiPAP Cancelled Liter Flow Cancelled Minute Volume Cancelled Vent Mode Not entered Not entered Cancelled Inspiratory Time Cancelled Expiratory Time Cancelled Tidal Volume 500.0 Cancelled Mean Airway Pressure Cancelled POC PEEP 10 6 Cancelled Peak Inspir Pressure Cancelled POC Pressure Suppt Cancelled Pressure Control Cancelled Pressure High Cancelled Pressure Low Cancelled Time High Cancelled Time Low Cancelled EPAP Cancelled IPAP Cancelled Blood Gas Comments Cancelled Crit Call To/Read Back Yes Cancelled Blood Gas Notified Whom CALIXTO NUNEZ Cancelled Blood Gas Notified Time 14:32:13 Cancelled Clinical Comments AVAPS Cancelled Imaging Radiology Impression Hip X-Ray 02/14/25 13:30 IMPRESSION: Status post left total hip replacement. There is good alignment. Postoperative soft tissue changes. Reading Location: [facility] Chest X-Ray 02/14/25 15:06 IMPRESSION: Right upper lobe infiltrate. Radiographic follow-up recommended. Reading Location: [facility]-[address] 02/15/25 03:02 IMPRESSION: Right perihilar/right lower lobe multifocal pulmonary airspace disease/consolidations, probably pneumonia. Severe chronic right renal atrophy. Cholelithiasis without acute cholecystitis. No CT evidence of active bleeding during the time of the exam. Small sliding hiatal hernia. Mild gastritis. Uncomplicated colonic diverticulosis. Mild prostatomegaly. Tsang catheter in the bladder. Unremarkable metallic prostheses of the hips. Moderate diffuse spondylosis. Reading Location: [place] [address] Assessment & Plan Assessment/Plan (1) Acute hypercapnic respiratory failure: (2) Coffee ground emesis: (3) Status post left hip replacement: (4) Diabetes: PLAN: Plan 79-year-old male history of diabetes and hypertension presented to [facility] 02/14/2025 for planned left hip replacement, postoperatively patient found to have hypercapnic respiratory failure. Overnight he developed multiple episodes of coffee-ground emesis. He was started on PPI drip. He had a CT scan abdomen pelvis that did not show inflammation in the stomach consistent with gastritis. Patient will undergo an upper endoscopy to evaluate his upper GI tract. He was explained alternatives, risk and benefits including withstanding bleeding, infection, sepsis, perforation, need for more charge and . He will have an ASA of 3. Charges/Coding Visit Charges Inpatient E&M: 93603 Init Hosp L3 02/15/25 1219 <Electronically signed by Marco A Ramirez DO> Cosigner Signature (if applicable): CC: Dr. Tess Hernandez MD; Dr. Rasheed Galindo DO~ Signed [facility] Work Phone: 1(196) 153-893706-18-2025 Consult note [facility] Medical Records Department [address] [place] [address] Anesthesia Postop Eval I 02/15/251317 MR#: [id number] Acct: [id number] Name: JEREMIAH VILLA Rep #:[id number] : 1945 79 From: Johnson Butler PCP: Dr. Tess Hernandez MD Status:ADM I N Y Race: C Location: ICU ICU02 -1 Anesthesia: Postop Eval I Current Vital Signs Temperature: 98.6 F Pulse Rate: 95 Blood Pressure: 116/90 Respiratory Rate: 18 Pulse Ox: 98 Oxygen Delivery Method: Room Air Assessment Airway patent: Yes Spontaneous unlabored respirations: Yes Mental status: Awake and Calm nausea: No Vomiting: No Anesthesia Complication: No Fluid Hydration Crystalloid volume administer (ml): 300 Total IV fluid infused: 300 Progress Note Anesthesia document: Postop Eval 1 completed: Yes 02/15/251317 > Date _ Johnson Gutierrez Signature: Date CC: ~ Signed [facility]06-18-2025 Procedure note [facility] Medical Records Department [address] [place] [address] EGD Report MR#: [id number] Acct: [id number] Name: JEREMIAH VILLA Rep #:[id number] : 1945 79 From: Marco A Ramirez DO PCP: Dr. Tess Hernandez MD Status:ADM I N Patient Name: Jeremiah Villa Procedure Date: 02/15/2025 12:39 PM Date of : 1945 Age: 79 Procedure: Upper GI endoscopy Indications: Coffee-ground emesis Providers: Marco A Ramirez DO Referring MD: Rasheed Galindo Do Medicines: Monitored Anesthesia Care Patient Profile: This is a 79 year old male. Refer to note in patient chart for documentation of history and physical. Patient has symptoms of acute nausea, acute throat burning and acute vomiting. Complications: No immediate complications. Procedure: Pre-Anesthesia Assessment: - Prior to the procedure, a History and Physical was performed, and patient medications and allergies were reviewed. The patient is competent. The risks and benefits of the procedure and the sedation options and risks were discussed with the patient. All questions were answered and informed consent was obtained. Patient identification and proposed procedure were verified by the physician in the pre-procedure area. Mental Status Examination: alert and oriented. Airway Examination: normal oropharyngeal airway and neck mobility. Respiratory Examination: clear to auscultation. CV Examination: normal. Prophylactic Antibiotics: The patient does not require prophylactic antibiotics. Prior Anticoagulants: The patient has taken no anticoagulant or antiplatelet agents except for NSAID medication. ASA Grade Assessment: II - A patient with mild systemic disease. After reviewing the risks and benefits, the patient was deemed in satisfactory condition to undergo the procedure. The anesthesia plan was to use monitored anesthesia care (MAC). Immediately prior to administration of medications, the patient was re-assessed for adequacy to receive sedatives. The heart rate, respiratory rate, oxygen saturations, blood pressure, adequacy of pulmonary ventilation, and response to care were monitored throughout the procedure. The physical status of the patient was re-assessed after the procedure. After obtaining informed consent, the endoscope was passed under direct vision. Throughout the procedure, the patient's blood pressure, pulse, and oxygen saturations were monitored continuously. The Endoscope was introduced through the mouth, and advanced to the third part of the duodenum. Small bowel enteroscopy was deemed necessary. The upper GI endoscopy was accomplished without difficulty. The patient tolerated the procedure well. Scope In: 12:52:39 PM Scope Out: 12:56:22 PM Total Procedure Duration Time 0 hours 3 minutes 43 seconds Findings: There was a lot of old blood in the mouth likely from posterior nosebleed. LA Grade C (one or more mucosal breaks continuous between tops of 2 or more mucosal folds, less than 75% circumference) esophagitis with no bleeding was found 34 to 40 cm from the incisors. No gross lesions were noted in the entire examined stomach. No gross lesions were noted in the entire examined duodenum. The nasopharynx and oropharynx are abnormal. Impression: - LA Grade C erosive esophagitis with no bleeding. - No gross lesions in the entire stomach. - No gross lesions in the entire examined duodenum. - The nasopharynx and oropharynx are abnormal due to old blood. - No specimens collected. Recommendation: - [facility]. - Resume regular diet. - Continue present medications. Procedure Code(s): --- Professional --- 18173, Small intestinal endoscopy, enteroscopy beyond second portion of duodenum, not including ileum; diagnostic, including collection of specimen(s) by brushing or washing, when performed (separate procedure) CPT copyright 2021 [employer]. All rights reserved. The codes documented in this report are preliminary and upon nurse's companion review may be revised to meet current compliance requirements. Marco A Ramirez DO 02/15/2025 1:02:29 PM This report has been signed electronically. Number of Addenda: 0 Note Initiated On: 02/15/2025 12:39 PM 02/15/25 1302 Date _ Marco A Ramirez DO Cosigner Signature: Date (if indicated) CC: Dr. Tess Hernandez MD; Marco A Ramirez DO ~ Date Dictated: 02/15/25 1239 Date Transcribed: Referral Clerk: MARIE Signed [facility]06-18-2025 Procedure note [facility] Medical Records Department [address] [place] [address] Operative Report - CC Letter MR#: [id number] Acct: [id number] Name: JEREMIAH VILLA Rep #:[id number] : 1945 79 From: Marco A Ramirez DO PCP: Dr. Tess Hernandez MD Status:ADM I N 02/15/2025 Tess Hernandez Re : Upper GI endoscopy procedure for Jeremiah Villa Dear Mary This procedure was performed on Saturday, February 15, 2025. My impressions and recommendations are as follows: Impressions : - LA Grade C erosive esophagitis with no bleeding. - No gross lesions in the entire stomach. - No gross lesions in the entire examined duodenum. - The nasopharynx and oropharynx are abnormal due to old blood. - No specimens collected. Recommendations : - [facility] to [facility]. - Resume regular diet. - Continue present medications. My findings are described in the full procedure note, which is enclosed. If I can be of further assistance, please feel free to contact me at . Sincerely, Marco A Ramirez DO 02/15/2025 1:02:29 PM This report has been signed electronically. 02/15/25 1302 Date _ Marco A Ramirez DO Cosigner Signature: Date (if indicated) CC: Dr. Tess Hernandez MD; Dr. Rasheed Galindo DO; Dr. Shraddha Gamez MD ~ Date Dictated: 02/15/25 1239 Date Transcribed: Referral Clerk: RF Signed [facility]06-18-2025 Consult note [facility] Medical Records Department [address] [place] [address] Pre-Anesthesia Evaluation 02/15/25 1231 MR#: [id number] Acct: [id number] Name: JEREMIAH VILLA Rep #:[id number] : 1945 79 From: Markie Piper MD PCP: Dr. Tess Hernandez MD Status:ADM I N Y Race: C Location: ICU ICU02 -1 ASA Classification* ASA Classification ASA Classification: 3 Assessment & Plan Anesthesia* Anesthesia Assessment Anesthesia Assessment: Discussed sedation and/or anesthesia options, risks, benefits, and alternatives with patient/parents/legal guardian/POA. Questions invited. The patient/parents/legal guardian/POA seems to understand and agrees to proceedwith anesthesia plan. Reviewed the physical assessment, medical history, allergy history and patient home medications list prior to surgery/procedure/anesthetic and documented any changes. Performed airway and anesthesia risk assessments. Anesthesia Type Anesthesia Type: MAC History Source History Obtained from:: Patient and Chart Anesthesia Focused Assessment* Temperature: 97.8 F Pulse Rate: 94 Blood Pressure: 122/54 Respiratory Rate: 19 Pulse Ox: 93 Oxygen Delivery Method: Room Air Oxygen Flow Rate (L/min): 2 Fraction of Inspired Oxygen (FIO2): 30 Airway Assessment Mouth opens: >3 cm Mallampati Score: III Teeth Condition: Missing (Patient has several missing teeth.) Neck Range of motion (ROM): Limited ROM Labs Anesthesia Preop lab: CBC WBC 12.2 K/mm3 (4.4-11.0) H 02/15/25 08:20 5 RBC 3.99 M/mm3 (4.6-6.2) L 02/15/25 08:20 02/15/25 Hgb 12.4 g/dL (13.0-16.5) L 02/15/25 08:20 5 Hct 36.9 % (40-54) L 02/15/25 08:20 02/15/25 Plt Count 199 K/mm3 (150-450) 02/15/25 08:20 02/15/25 CHEMISTRY Potassium 4.4 mmol/L (3.3-5.1) 02/15/25 03:18 02/15/25 Sodium 133 mmol/L (133-145) 02/15/25 03:18 02/15/25 Magnesium 2.2 mg/dL (1.5-2.2) 02/03/25 12:12 02/03/25 BUN 17 mg/dL (4-19) 02/15/25 03:18 02/15/25 Creatinine 1.76 mg/dL (0.70-1.20) H 02/15/25 03:18 Glucose 183 mg/dL (70-99) H 02/15/25 03:18 02/15/25 POC Glucose 190 mg/dL (74-106) H 02/14/25 21:25 02/14/25 COAG PT 13.0 SECONDS (11.7-14.9) 02/03/25 12:12 Pre-Assessment Diagnosis/Proposed Procedure Planned Operative Procedure(s): EGD Anesthesia History 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 When Was Last Pacemaker Check QUESTION #4 FULL TEXT: You/Your Family Experience fever (hyperthermia) with Anesthesia Last Oral Intake Last Oral intake: Last Oral Intake NPO since 00:00 02/15/25 12:04 Meds taken in AM with sips of Yes 02/14/25 10:06 water? 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 Female No 02/07/25 12:20 HX of Motion Sickness No 02/07/25 12:20 HX of N/V After Surgery No 02/07/25 12:20 Non-Smoker Yes 02/07/25 12:20 Duration of Surgery greater Yes 02/07/25 12:20 than 60 minutes Number of Risk Factors 2 02/07/25 12:20 PONV Score Moderate Risk 02/07/25 12:20 Height & Weight Height & Weight: Anesthesia: Height & Weight Height 5 ft 11 in 02/15/25 12:04 Weight: 123.2 kg 02/15/25 12:04 Body Mass Index (BMI) 37.8 02/15/25 12:04 Respiratory Assessment Respiratory Assessment - quarry supervisor open pit: Respiratory Tract Infection Hx - 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 Has anyone observed you stop No 02/14/25 16:46 breathing during sleep? STOP Results Positive 02/14/25 16:46 QUESTION #5 FULL TEXT : Do you snore loudly (louder than talking or can be heard through closeddoors)? 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 Specify any problems Hx of Preganancy in last 3 N/A 02/14/25 16:46 Months Nurse Filling Out Transfusion KESTEP 02/14/25 16:46 & Questions: Date: 02/14/25 02/14/25 16:46 Time: 17:20 02/14/25 16:46 Patient unable to answer at this time (ie. 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 supervisor open pit: /Reproductive Hx- quarry supervisor open pit Hx Now No 02/07/25 12:20 Gestational Age (in weeks): EDC: Hx Hx Para Hx Section SAB No 02/07/25 12:20 Active Medications Active Medications: Current Medications Generic Name Dose Route Start Last Admin Trade Name Freq PRN Reason Stop Dose Admin Acetaminophen 1,000 mg 02/14/25 18:30 02/15/25 07:42 Acetaminophen 500 Mg Tablet PO Not Given Q8H [facility] Apixaban 2.5 mg 02/15/25 07:00 Apixaban 2.5 Mg Tablet ([facility]) PO BID [facility] Cholecalciferol 25 mcg 02/15/25 10:00 02/15/25 07:42 Cholecalciferol (Vit D3) 25 Mcg Tablet (1,000 Units) PO Not Given DAILY [facility] Enteral Nutritional Formula 237 ml 02/14/25 17:00 02/15/25 12:00 Ensure Surgery 237 Ml Liquid PO Not Given TIDCM [facility] Glucagon 1 mg 02/14/25 16:39 Glucagon 1 Mg/Ml Syringe IM X1 PRN Hypoglycemia Protocol Dextrose 250 mls @ 0 mls/hr 02/14/25 16:39 Dextrose 10%-Water IV .Q0M PRN HYPOGLYCEMIA Protocol As Directed Sodium Chloride 250 mls @ 15 mls/hr 02/14/25 16:56 IV .[id number] PRN Saline Flush Sodium Chloride 250 mls @ 15 mls/hr 02/14/25 16:56 IV .[id number] PRN Additional IVPB Infusion Pantoprazole Sodium 80 mg/ 100 mls @ 10 mls/hr 02/15/25 03:05 02/15/25 04:34 Sodium Chloride CONT INF 10 mls/hr Q10H SILVER Administration Insulin Human Lispro 0 unit 02/14/25 16:55 02/15/25 11:59 Insulin Lispro 100 Unit/Ml Insuln.Pen SC Not Given ACHS [facility] Protocol Ondansetron HCl 4 mg 02/14/25 13:30 02/15/25 02:39 Ondansetron 4 Mg/2 Ml Vial IV 4 mg Q8H PRN PRN Administration NAUSEA Oxycodone HCl 5 - 10 mg 02/14/25 13:30 Oxycodone 5 Mg Tablet PO Q4H PRN PRN Pain Score 4-10 Senna/Docusate Sodium 2 tablet 02/14/25 22:00 02/15/25 07:42 Senna/Docusate Sodium 1 Tablet PO Not Given BID [facility] Sodium Chloride 10 - 40 ml 02/14/25 16:56 02/15/25 08:22 0.9% Saline Lock 10 Ml Syringe IV 10 ml UD PRN Administration SALINE FLUSH PFSH Medical History Wears glasses Wears partial dentures Alcohol use Rash Walker as ambulation aid Arthritis History of renal disease High cholesterol Back pain Syncope Dietary restriction Constipation Chewing tobacco use History of pain when walking Hypertension Pulmonary embolism Diabetes Home Medications ?Medication ?Instructions ?Recorded ?Last Taken ?Type glipizide 5 mg tablet 5 mg PO BID BLOOD GLUCOSE 02/13/25 History ascorbic acid (vitamin C) 1,000 mg 2,000 mg PO DAILY S UPPLEMENT 02/07/25 02/13/25 History tablet,extended release (C Complex) cholecalciferol (vitamin D3) 25 25 mcg PO DAILY SUPPLE MENT 02/07/25 02/13/25 History mcg (1,000 unit) tablet (Vitamin D3) lisinopril 5 mg tablet 5 mg PO BID KIDNEY PREVENTIO N 02/07/25 02/13/25 History magnesium 250 mg tablet 750 mg PO DAILY SUPPLEMENT 0 02/07/25 02/13/25 History saw palm 160 mg-vit E 100 2 tab PO TID SUPPLEMENT 01/2902/13/25 History unit-selen 100 zaf-ekxx-vohatg-pygeum tablet ([facility]) vitamin K2 100 mcg capsule 100 mcg PO DAILY SUPPLEMENT 02/07/25 02/13/25 History Allergy/AdvReac Type Severity Reaction Status Date / Time No Known Allergies Allergy Verified 02/14/25 10:16 Surgical History Hx of right cataract extraction Hx of left cataract extraction Hx of appendectomy History of right hip replacement Social History Smoking Status: Former smoker Smokeless tobacco user: snuff alcohol intake: current alcohol intake frequency: holidays/special occasions only Review of Systems (Anesthesia) ROS Narrative System reviewed and no additional complaints, except as documented. 02/15/25 1239 bettie LINTON> Date _ Markie Piper MD Cosigner Signature: Date CC: ~ Signed [facility]06-18-2025 Consult note [facility] Medical Records Department [address] [place] [address] Consultation - GI 02/15/25 1216 MR#: [id number] Acct: [id number] Name: JEREMIAH VILLA Rep #:[id number] : 1945 79 From: Marco A Ramirez DO PCP: Dr. Tess Hernandez MD Status:ADM I N Location: ICU ICU02-1 HPI Consult Data Date of Consult: 02/15/25 Attending Care Provider: Coffee-ground emesis HPI Narrative HPI Narrative: JEREMIAH VILLA, is a 79-year-old male who presented [facility] on 02/14/25 for planned left hip replacement. Unfortunately after his successful left hip replacement he developed hypercapnic respiratory failure. I was asked to see him this morning due to multiple episodes of coffee-ground emesis. Chestx-ray showed mild vascular congestion and right upper lobe infiltrate, possible pneumonia. He is on DVT prophylaxis. Addressed multiple episodes of coffee-ground emesis he was started on a PPI drip. [facility] Medical History Wears glasses Wears partial dentures Alcohol use Rash Walker as ambulation aid Arthritis History of renal disease High cholesterol Back pain Syncope Dietary restriction Constipation Chewing tobacco use History of pain when walking Hypertension Pulmonary embolism Diabetes Home Medications ?Medication ?Instructions ?Recorded ?Last Taken ?Type glipizide 5 mg tablet 5 mg PO BID BLOOD GLUCOSE 02/13/25 History ascorbic acid (vitamin C) 1,000 mg 2,000 mg PO DAILY S UPPLEMENT 02/07/25 02/13/25 History tablet,extended release (C Complex) cholecalciferol (vitamin D3) 25 25 mcg PO DAILY SUPPLE MENT 02/07/25 02/13/25 History mcg (1,000 unit) tablet (Vitamin D3) lisinopril 5 mg tablet 5 mg PO BID KIDNEY PREVENTIO N 02/07/25 02/13/25 History magnesium 250 mg tablet 750 mg PO DAILY SUPPLEMENT 0 02/07/25 02/13/25 History saw palm 160 mg-vit E 100 2 tab PO TID SUPPLEMENT 01/2902/13/25 History unit-selen 100 ubl-pbtx-qexlcn-pygeum tablet ([facility]) vitamin K2 100 mcg capsule 100 mcg PO DAILY SUPPLEMENT 02/07/25 02/13/25 History Allergy/AdvReac Type Severity Reaction Status Date / Time No Known Allergies Allergy Verified 02/14/25 10:16 Surgical History Hx of right cataract extraction Hx of left cataract extraction Hx of appendectomy History of right hip replacement Social History Smoking Status: Former smoker Smokeless tobacco user: snuff alcohol intake: current alcohol intake frequency: holidays/special occasions only ROS Constitutional Constitutional: Denies fatigue, fever(s), poor appetite, weight gain or weight loss Gastrointestinal Gastrointestinal: Denies belching, bloating, change in bowel habits, change in stool character, chewing difficulty, coffee ground emesis, constipation, cramping, diarrhea, dyspepsia, dysphagia, earlysatiety, excessive flatus, fecalincontinence, heartburn, hematemesis, hematochezia, hemorrhoids, loose stools, melena, nausea, odynophagia, rectal bleeding, tenesmus, vomiting or weight changes Physical Exam Const alert, oriented x3, no apparent distress and healthy appearing General Appearance: cooperative GI normal to inspection, nondistended, normoactive bowel sounds, soft to palpation,non-tender and non-distended Percussion: normal to percussion Rectal Exam: deferred Lab / Micro Data 02/15/25 08:20 02/15/25 03:18 Labs: Laboratory Results - last 24 hr 02/14/25 13:51: POC Glucose 167 H 02/14/25 17:47: POC Glucose 100 02/14/25 18:20: NT pro BNP II 325 02/14/25 21:25: POC Glucose 190 H 02/15/25 03:18: WBC 10.7, RBC 4.34 L, Hgb 13.8, Hct 40.7, MCV 93.8, MCH 31.8, MCHC 33.9, RDW Std Deviation 45.3 H, RDW Coeff of Sherry 13.2, Plt Count 207, MPV 9.1, Immature Gran % (Auto) 0.200, Neut % (Auto) 79.6 H, Lymph % (Auto) 12.0 L, [place] % (Auto) 7.9, Eos % (Auto) 0.1, Baso % (Auto) 0.2, Absolute Neuts (auto) 8.5 H, Absolute Lymphs (auto) 1.28, Nucleated RBC % 0, Sodium 133, Potassium 4.4, Chloride 98, Carbon Dioxide 22.2, Anion Gap 12, BUN 17, Creatinine 1.76 H, Estim Creat Clear Calc 46.24 L, Est GFR (MDRD) Non-Af 39 L, BUN/Creatinine Ratio9.7 L, Glucose 183 H, Calcium 8.6 02/15/25 08:20: WBC 12.2 H, RBC 3.99 L, Hgb 12.4 L, Hct 36.9 L, MCV 92.5, MCH 31.1, MCHC 33.6, RDW Std Deviation 44.8 H, RDW Coeff of Sherry 13.2, Plt Count 199,MPV 9.2 Micro: Microbiology 02/15/25 02:40 Vomitus Gastric Occult Blood - Final Occult Blood Positive ABG Data ABG results: ABG 02/14/25 02/14/25 02/14/25 14:30 15:55 19:39 Specimen Type ART ART Cancelled Sample Site R Brach R Brach Cancelled pH 7.15 L* 7.27 L Cancelled Bicarbonate Actual 29.2 H 27.2 H Cancelled Total CO2 32 29 Cancelled Base Excess 0 0 Cancelled O2 Saturation 94 L 94 L Cancelled O2 % 40.0 40.0 Cancelled ABG pCO2 84.8 H* 60.0 H Cancelled ABG pO2 94 83 Cancelled [place] Test Cancelled Respiration Rate 16 16 Cancelled O2 Delivery Device BiPAP BiPAP Cancelled Liter Flow Cancelled Minute Volume Cancelled Vent Mode Not entered Not entered Cancelled Inspiratory Time Cancelled Expiratory Time Cancelled Tidal Volume 500.0 Cancelled Mean Airway Pressure Cancelled POC PEEP 10 6 Cancelled Peak Inspir Pressure Cancelled POC Pressure Suppt Cancelled Pressure Control Cancelled Pressure High Cancelled Pressure Low Cancelled Time High Cancelled Time Low Cancelled EPAP Cancelled IPAP Cancelled Blood Gas Comments Cancelled Crit Call To/Read Back Yes Cancelled Blood Gas Notified Whom CALIXTO NUNEZ Cancelled Blood Gas Notified Time 14:32:13 Cancelled Clinical Comments AVAPS Cancelled Imaging Radiology Impression Hip X-Ray 02/14/25 13:30 IMPRESSION: Status post left total hip replacement. There is good alignment. Postoperative soft tissue changes. Reading Location: [facility] Chest X-Ray 02/14/25 15:06 IMPRESSION: Right upper lobe infiltrate. Radiographic follow-up recommended. Reading Location: [facility]-[address] 02/15/25 03:02 IMPRESSION: Right perihilar/right lower lobe multifocal pulmonary airspace disease/consolidations, probably pneumonia. Severe chronic right renal atrophy. Cholelithiasis without acute cholecystitis. No CT evidence of active bleeding during the time of the exam. Small sliding hiatal hernia. Mild gastritis. Uncomplicated colonic diverticulosis. Mild prostatomegaly. Tsang catheter in the bladder. Unremarkable metallic prostheses of the hips. Moderate diffuse spondylosis. Reading Location: [place] [address] Assessment & Plan Assessment/Plan (1) Acute hypercapnic respiratory failure: (2) Coffee ground emesis: (3) Status post left hip replacement: (4) Diabetes: PLAN: Plan 79-year-old male history of diabetes and hypertension presented to [facility] 02/14/2025 for planned left hip replacement, postoperatively patient found to have hypercapnic respiratoryfailure. Overnight he developed multiple episodes of coffee-ground emesis. He was started on PPI drip. He had a CT scan abdomen pelvis that did not show inflammation in the stomach consistent with gastritis. Patient will undergo an upper endoscopy to evaluate his upper GI tract. He was explained alternatives, risk and benefits including withstanding bleeding, infection, sepsis, perforation, need for more charge and . He will have an ASA of 3. Charges/Coding Visit Charges Inpatient E&M: 92991 Init Hosp L3 02/15/25 1219 Cosigner Signature (if applicable): CC: Dr. Tess Hernandez MD; Dr. Rasheed Galindo DO~ Signed [facility]06-18-2025 Radiology Diagnostic study note [facility] Imaging Services [address] [place] [address] Abdomen W/WO IV Contrast MR#: [id number] Acct: [id number] Name: JEREMIAH VILLA Rep #: [id number] : 1945 M 79 From: Romario Mcpherson MD PCP: Dr. Tess Hernandez MD Status: ADM I N Study:Abdomen W/WO IV Contrast Date of Exam: 02/15/25 Exam# [id number] Ordering Dr: Tess Lantigua DO PROCEDURE: ABDOMEN W/WO IV CONTRAST 02/15/2025 REASON FOR EXAM: POTENTIAL GI BLEED TECHNIQUE: ABDOMEN W/WO IV CONTRAST. Multiplanar Sagittal and Coronal images were obtained. One or more dose reduction techniques were used (e.g., Automated exposure control, adjustment of the mA and/or kV according to patient size, use of iterative reconstruction technique. ORAL CONTRAST TYPE: None. CONTRAST: Isovue-300 70 VOLUME: 100 mL RADIATION DOSE SUMMARY: CTDlvol: 24.06 mGy DLP: 466 mGycm COMPARISON: None. FINDINGS: Right perihilar/right lower lobe multifocal pulmonary airspace disease/consolidations, probably pneumonia. Severe chronic right renal atrophy. Cholelithiasis without acute cholecystitis. No CT evidence of active bleeding during the time of the exam. Small sliding hiatal hernia. Mild gastritis. Uncomplicated colonic diverticulosis. Mild prostatomegaly. Tsang catheter in the bladder. Unremarkable metallic prostheses of the hips. Moderate diffuse spondylosis. Normal liver. Normal extrahepatic biliary system. Normal spleen. Normal pancreas. Normal bilateral adrenal glands. Normal size of the right kidney. There is no right renal mass. There are no right renal calculi. There is no right hydronephrosis. Normal visualized right ureter. Normal size of the left kidney. There is no left renal mass. There are no leftrenal calculi. There is no left hydronephrosis. Normal visualized left ureter. Normal small intestine. There is no demonstrated peritoneal fluid. Calcified atheromatous plaques of the abdominal aorta. Normal inferior vena cava. Normal retroperitoneum. There is no pelvic mass lesion or lymphadenopathy. There is no pelvic fluid. Normal abdominal wall. Moderate diffuse spondylosis. CT/Abdomen W/WO IV Contrast IMPRESSION: Right perihilar/right lower lobe multifocal pulmonary airspace disease/consolidations, probably pneumonia. Severe chronic right renal atrophy. Cholelithiasis without acute cholecystitis. No CT evidence of active bleeding during the time of the exam. Small sliding hiatal hernia. Mild gastritis. Uncomplicated colonic diverticulosis. Mild prostatomegaly. Tsang catheter in the bladder. Unremarkable metallic prostheses of the hips. Moderate diffuse spondylosis. Reading Location: [place] [address] CC: Dr. Tess Hernandez MD; Dr. Tess Bell DO ~ Referral Clerk: Signed [facility]06-17-2025 Consult note Author Chris Alberts [facility] Note Date/Time February 14, 2025 6:39 pm [facility] Medical Records Department [address] [place] [address] Anesthesia Postop Eval II 02/14/25 1838 MR#: [id number] Acct: [id number] Name: JEREMIAH VILLA Rep #:[id number] : 1945 79 From: Chris Alberts MD PCP: Dr. Tess Hernandez MD Status:ADM I N Y Race: C Location: ICU ICU02 -1 Anesthesia Postop Eval I Sum Postop Eval Completion status Anesthesia document: Postop Eval 1 completed: Yes Anesthesia Postop Eval I Summary Anesthesia Postop Eval I Summary: Anesthesia Postop Eval I: Assessment Summary Airway patent Yes 02/14/25 15:21 [email or web address] Spontaneous unlabored Yes 02/14/25 15:21 LEAFLET [email or web address] respirations Mental status Unresponsive 02/14/25 15:21 [email or web address] nausea No 02/14/25 15:21 LEAFLET [email or web address] Vomiting No 02/14/25 15:21 LEAFLET [email or web address] Anesthesia Postop Eval I: Fluid Summary Crystalloid volume administer 2,000 02/14/25 15:21 LEAFLET [email or web address] (ml) Colloids volume administered ( ml) Blood Product volume administered (ml) Total IV fluid infused 2,000 02/14/25 15:21 LEAFLET [email or web address] Anesthesia Postop Eval I: Summary Notes Anesthesia Complication Yes 02/14/25 15:21 LEAFLET [email or web address] Anesthesia Complication CO2 narcosis 02/14/25 15:21 LEAFLET [email or web address] Comment: Post-operative progress note Anesthesia: Postop Eval II Evaluation Mental status: Awake Pain Level: 0 nausea: No Vomiting: No Progress Note Post-operative progress note: See my progress note in patient's chart Complications Anesthesia Complication: Yes Anesthesia Complication Comment:: Please see my progress note. 02/14/25 1839 <Electronically signed by Chris Alberts MD> Date _ Chris Alberts MD Cosigner Signature: Date CC: ~ Signed [facility] Work Phone: 1(781) 792-421406-17-2025 Consult note Author Yomi Dempsey [facility] Note Date/Time February 14, 2025 4:46 pm [facility] Medical Records Department [address] [place] [address] Consultation - Hospitalist 02/14/25 1509 MR#: [id number] Acct: [id number] Name: OPHELIA VILLAJANIYA Ashley Rep #:[id number] : 1945 79 From: Yomi mejia DO PCP: Dr. Tess Hernandez MD Status:ADM I N Location: ICU ICU02-1 Assessment & Plan Assessment/Plan (1) Acute hypercapnic respiratory failure: (2) Status post left hip replacement: PLAN: Plan Patient is a 79-year-old male who presented [facility] on 02/14/25 for planned left hip replacement. Medicine consulted postoperatively for medical management and for acute management of hypercapnic respiratory failure. 1. Postoperative hypercapnic respiratory failure with acute metabolic encephalopathy, concern for aspiration pneumonia ? Admit under inpatient status to ICU. Electrical And Instrument Technician consulted. Significant somnolence noted postoperatively. ABG showed pH 7.15, pCO2 85 consistent with acute respiratory acidosis secondary to hypercapnic respiratory failure. Chest x-ray showed mild vascular congestion and right upper lobe infiltrate concerningfor pneumonia. Presumed that hypercapnia was primarily due to oversedation fromanesthesia. Was on BiPAP for over an hour with repeat ABG 7.27, pCO2 60. Patient more arousable but still not following commands. Gave 1 dose of IV Lasix in PACU. Will treat with IV Unasyn for now. Sputum culture ordered. Wean supplemental oxygen as able. N.p.o. status for now until encephalopathy has improved. Appreciate fitness floor attendant recommendations. 2. Left hip osteoarthritis ? Orthopedic surgery primary. S/p left hip replacement with Dr. Galindo on 02/14. Tolerated procedure well, no intraoperative complications noted. Pain control, DVT prophylaxis and further postoperative management per orthopedics. PT/OT/case management consulted. 3. Type 2 diabetes mellitus ? A1c only 6.6% on 02/03. Blood glucose 167 postoperatively. Hold home glipizide. Will treat with sliding scale every 6 hours for now, adjust as needed. 4. Hypertension ? Hypertensive postoperatively presume secondary to anesthesia and dose of IV labetalol for postop hypertension to the 150s. Hold home lisinopril for now, restart as needed. 5. CKD stage IIIb ? Creatinine 1.59 on preop labs on 02/03. GFR 44. Follow-up postoperative BMP and monitor urine output. 6. Class II obesity ? BMI 36 on admit. Complicates hospital course, care and prognosis. DVT prophylaxis: Defer to orthopedics Total clinical time spent by myself addressing the patient's medical issues, reviewing all the data, and collaborating with patient's care team: 50 minutes. HPI Consult Data Date of Consult: 02/14/25 HPI Narrative Reason for Consultation: Postoperative hypercapnic respiratory failure HPI Narrative: JEREMIAH VILLA, is a 79 M who presented to [facility] on 02/14/2025 for planned left hip replacement. Medicine consulted postoperatively for both general medical management and acute management of hypercapnic respiratory failure. Patient had left hip replacement done with Dr. Galindo today. I spokewith Dr. Galindo over the phone and patient did well with procedure, no intraoperative complications noted. Postoperatively patient was found to be very somnolent and unarousable. ABG showed pH 7.15, pCO2 84 on AVAPS. Given this finding, he was placed on BiPAP for hypercapnic respiratory failure. I discussed the patient with both the LEAFLET DISTRIBUTOR and anesthesiologist. LEAFLET DISTRIBUTOR noted that patient was hypertensive at the end of the case so he gave doses of both IV labetalol and IV Dilaudid. Patient also received 2 L LR during the procedure. Chest x-ray in PACU showed vascular congestion with concern for right upper lobeinfiltrate. LEAFLET DISTRIBUTOR and anesthesiologist noted no aspiration events during the procedure. Given this imaging finding, patient was given a dose of IV Lasix. His blood pressure was running borderline low in the PACU so he was given a few doses of phenylephrine for this. When I saw the patient, he was arousable but was not following any commands. Will admit to the ICU for further management. [facility] Medical History (Updated 02/14/25 @ 16:[address] Yomi Dempsey, DO) Wears glasses Wears partial dentures Alcohol use Rash Walker as ambulation aid Arthritis History of renal disease High cholesterol Back pain Syncope Dietary restriction Constipation Chewing tobacco use History of pain when walking Hypertension Pulmonary embolism Diabetes Home Medications ?Medication ?Instructions ?Recorded ?Last Taken ?Type glipizide 5 mg tablet 5 mg PO BID BLOOD GLUCOSE 02/13/25 History ascorbic acid (vitamin C) 1,000 mg 2,000 mg PO DAILY S UPPLEMENT 02/07/25 02/13/25 History tablet,extended release (C Complex) cholecalciferol (vitamin D3) 25 25 mcg PO DAILY SUPPLE MENT 02/07/25 02/13/25 History mcg (1,000 unit) tablet (Vitamin D3) lisinopril 5 mg tablet 5 mg PO BID KIDNEY PREVENTIO N 02/07/25 02/13/25 History magnesium 250 mg tablet 750 mg PO DAILY SUPPLEMENT 0 02/07/25 02/13/25 History saw palm 160 mg-vit E 100 2 tab PO TID SUPPLEMENT 01/2902/13/25 History unit-selen 100 vgp-twew-ioeput-pygeum tablet ([facility]) vitamin K2 100 mcg capsule 100 mcg PO DAILY SUPPLEMENT 02/07/25 02/13/25 History Allergy/AdvReac Type Severity Reaction Status Date / Time No Known Allergies Allergy Verified 02/14/25 10:16 Surgical History (Updated 02/14/25 @ 16:[address] Yomi Dempsey, DO) Hx of right cataract extraction Hx of left cataract extraction Hx of appendectomy History of right hip replacement Social History (Updated 01/13/25 @ 10:24 by Alida Augustin) Smoking Status: Never smoker Smokeless tobacco user: snuff alcohol intake: current alcohol intake frequency: holidays/special occasions only ROS Review of Systems ROS Unobtainable: due to encephalopathy Physical Exam Const Constitutional Narrative: Elderly male, class II obesity, lethargic, arousable but not following any commands, otherwise breathing comfortably on BiPAP at rest. Orientation / Consciousness: lethargic HEENT normocephalic, head/scalp atraumatic and nasal mucous membranes and turbinates normal Eyes PERRL, EOMs intact bilaterally and conjunctivae normal Neck full ROM Chest inspection of chest normal Resp normal respiratory effort and no use of accessory muscles Resp Narrative: Breathing comfortably on BiPAP at rest. Diminished breath sounds in bilateral lung bases with crackles noted in mid right lung zone. No wheezing noted. Cardio regular rate, regular rhythm, no murmurs and peripheral pulses 2+ throughout GI normal to inspection, nondistended, normoactive bowel sounds, soft to palpation,non-tender and non-distended Back/Spine normal ROM Extremity Extremity Narrative: Left hip with surgical dressing and ice in place. Skin no rashes or lesions noted Lab / Micro Data Labs: Laboratory Results - last 24 hr 02/14/25 09:31: POC Glucose 278 H 02/14/25 13:51: POC Glucose 167 H ABG Data ABG results: ABG 02/14/25 14:30 Specimen Type ART Sample Site R Brach pH 7.15 L* Bicarbonate Actual 29.2 H Total CO2 32 Base Excess 0 O2 Saturation 94 L O2 % 40.0 ABG pCO2 84.8 H* ABG pO2 94 Respiration Rate 16 O2 Delivery Device BiPAP Vent Mode Not entered Tidal Volume 500.0 POC PEEP 10 Crit Call To/Read Back Yes Blood Gas Notified Whom CALIXTO NUNEZ Blood Gas Notified Time 14:32:13 Clinical Comments [facility] Imaging Radiology Impression Hip X-Ray 02/14/25 13:30 IMPRESSION: Status post left total hip replacement. There is good alignment. Postoperative soft tissue changes. Reading Location: [facility] Charges/Coding Visit Charges Inpatient E&M: 55485 Subs Hosp L3 02/14/25 1646 <Electronically signed by Yomi Dempsey DO> Cosigner Signature (if applicable): CC: Dr. Tess Hernandez MD; Dr. Rasheed Galindo DO~ Signed [facility] Work Phone: 1(286) 139-758806-17-2025 Consult note [facility] Medical Records Department [address] [place] [address] Anesthesia Postop Eval II 02/14/25 1838 MR#: [id number] Acct: [id number] Name: JEREMIAH VILLA Rep #:[id number] : 1945 79 From: Chris Alberts MD PCP: Dr. Tess Hernandez MD Status:ADM I N Y Race: C Location: ICU ICU02 -1 Anesthesia Postop Eval I Sum Postop Eval Completion status Anesthesia document: Postop Eval 1 completed: Yes Anesthesia Postop Eval I Summary Anesthesia Postop Eval I Summary: Anesthesia Postop Eval I: Assessment Summary Airway patent Yes 02/14/25 15:21 LEAFLET DISTRIBUTOR.ACAR Spontaneous unlabored Yes 02/14/25 15:21 LEAFLET DISTRIBUTOR.ACAR respirations Mental status Unresponsive 02/14/25 15:21 LEAFLET DISTRIBUTOR.ACAR nausea No 02/14/25 15:21 LEAFLET DISTRIBUTOR.ACAR Vomiting No 02/14/25 15:21 LEAFLET DISTRIBUTOR.ACAR Anesthesia Postop Eval I: Fluid Summary Crystalloid volume administer 2,000 02/14/25 15:21 LEAFLET DISTRIBUTOR.ACAR (ml) Colloids volume administered ( ml) Blood Product volume administered (ml) Total IV fluid infused 2,000 02/14/25 15:21 LEAFLET DISTRIBUTOR.ACAR Anesthesia Postop Eval I: Summary Notes Anesthesia Complication Yes 02/14/25 15:21 LEAFLET DISTRIBUTOR.ACAR Anesthesia Complication CO2 narcosis 02/14/25 15:21 LEAFLET DISTRIBUTOR.ACAR Comment: Post-operative progress note Anesthesia: Postop Eval II Evaluation Mental status: Awake Pain Level: 0 nausea: No Vomiting: No Progress Note Post-operative progress note: See my progress note in patient's chart Complications Anesthesia Complication: Yes Anesthesia Complication Comment:: Please see my progress note. 02/14/25 1839 > Date _ Chris Aristeo LINTON Cosigner Signature: Date CC: ~ Signed [facility]06-17-2025 Consult note Author Richar Smith [facility] Note Date/Time February 14, 2025 3:21 pm [facility] Medical Records Department [address] [place] [id number] Anesthesia Postop Eval I 02/14/25 1518 MR#: [id number] Acct: [id number] Name: DAISYJEREMIAH L Rep #:[id number] : 1945 79 From: Richar robbins CRNA PCP: Dr. Tess Hernandez MD Status:ADM I N Y Race: C Location: [place] [address] Anesthesia: Postop Eval I Current Vital Signs Temperature: 97 F Pulse Rate: 80 Blood Pressure: 100/75 (bp treated with phenylephrine) Respiratory Rate: 18 Pulse Ox: 95 Oxygen Delivery Method: Bi-pap (patient with respirtory acidosis retained CO2) Fraction of Inspired Oxygen (FIO2): 0.40 Assessment Airway patent: Yes Spontaneous unlabored respirations: Yes Mental status: Unresponsive nausea: No Vomiting: No Anesthesia Complication: Yes Anesthesia Complication Comment:: CO2 narcosis Fluid Hydration Crystalloid volume administer (ml): 2,000 Total IV fluid infused: 2,000 Progress Note Anesthesia document: Postop Eval 1 completed: Yes 02/14/25 1521 <Electronically signed by Richar low CRNA> Date _ Richar Smith CRNA Cosigner Signature: Date CC: ~ Signed [facility] Work Phone: 1(163) 519-114806-17-2025 Consult note [facility] Medical Records Department [address] [place] [address] Consultation - Hospitalist 02/14/25 1509 MR#: [id number] Acct: [id number] Name: JEREMIAH VILLA Rep #:[id number] : 1945 79 From: Yomi mejia DO PCP: Dr. Tess Hernandez MD Status:ADM I N Location: ICU ICU02-1 Assessment & Plan Assessment/Plan (1) Acute hypercapnic respiratory failure: (2) Status post left hip replacement: PLAN: Plan Patient is a 79-year-old male who presented [facility] on 02/14/25 for planned left hip replacement. Medicine consulted postoperatively for medical management and for acute management of hypercapnic respiratory failure. 1. Postoperative hypercapnic respiratory failure with acute metabolic encephalopathy, concern for aspiration pneumonia ? Admit under inpatient status to ICU. Electrical And Instrument Technician consulted. Significant somnolence noted postoperatively. ABG showed pH 7.15, pCO2 85 consistent with acute respiratory acidosis secondary to hypercapnic respiratory failure. Chest x-ray showed mild vascular congestion and right upper lobe infiltrate concerningfor pneumonia. Presumed that hypercapnia was primarily due to oversedation fromanesthesia. Was on BiPAP for over an hour with repeat ABG 7.27, pCO2 60. Patient more arousable but still notfollowing commands. Gave 1 dose of IV Lasix in PACU. Will treat with IV Unasyn for now. Sputum culture ordered. Wean supplemental oxygen as able. N.p.o. status for now until encephalopathy has improved. Appreciate fitness floor attendant recommendations. 2. Left hip osteoarthritis ? Orthopedic surgery primary. S/p left hip replacement with Dr. Galindo on 02/14. Tolerated procedure well, no intraoperative complications noted. Pain control, DVT prophylaxis and further postoperative management per orthopedics. PT/OT/case management consulted. 3. Type 2 diabetes mellitus ? A1c only 6.6% on 02/03. Blood glucose 167 postoperatively. Hold home glipizide. Will treat with sliding scale every 6 hours for now, adjust as needed. 4. Hypertension ? Hypertensive postoperatively presume secondary to anesthesia and dose of IV labetalol for postop hypertension to the 150s. Hold home lisinopril for now, restart as needed. 5. CKD stage IIIb ? Creatinine 1.59 on preop labs on 02/03. GFR 44. Follow-up postoperative BMP and monitor urine output. 6. Class II obesity ? BMI 36 on admit. Complicates hospital course, care and prognosis. DVT prophylaxis: Defer to orthopedics Total clinical time spent by myself addressing the patient's medical issues, reviewing all the data, and collaborating with patient's care team: 50 minutes. HPI Consult Data Date of Consult: 02/14/25 HPI Narrative Reason for Consultation: Postoperative hypercapnic respiratory failure HPI Narrative: JEREMIAH VILLA, is a 79 M who presented to [facility] on 02/14/2025 for planned left hip replacement. Medicine consulted postoperatively for both general medical management and acute management of hypercapnic respiratory failure. Patient had left hip replacement done with Dr. Galindo today. I spokewith Dr. Galindo over the phone and patient did well with procedure, no intraoperative complications noted. Postoperatively patient was found to be very somnolent and unarousable. ABG showed pH 7.15, pCO2 84 on AVAPS. Given this finding, he was placed on BiPAP for hypercapnic respiratoryfailure. I discussed the patient with both the LEAFLET DISTRIBUTOR and anesthesiologist. LEAFLET DISTRIBUTOR noted that patient was hypertensive at the end of the case so he gave doses of both IV labetalol and IV Dilaudid. Patient also received 2 L LR during the procedure. Chest x-ray in PACU showed vascular congestion with concern for right upper lobeinfiltrate. LEAFLET DISTRIBUTOR and anesthesiologist noted no aspiration events during theprocedure. Given this imaging finding, patient was given a dose of IV Lasix. His blood pressure was running borderline low in the PACU so he was given a few doses of phenylephrine for this. When I saw the patient, he was arousable but was not following any commands. Will admit to the ICU for further management. [facility] Medical History (Updated 02/14/25 @ 16:[address] Yomi Dempsey, DO) Wears glasses Wears partial dentures Alcohol use Rash Walker as ambulation aid Arthritis History of renal disease High cholesterol Back pain Syncope Dietary restriction Constipation Chewing tobacco use History of pain when walking Hypertension Pulmonary embolism Diabetes Home Medications ?Medication ?Instructions ?Recorded ?Last Taken ?Type glipizide 5 mg tablet 5 mg PO BID BLOOD GLUCOSE 02/13/25 History ascorbic acid (vitamin C) 1,000 mg 2,000 mg PO DAILY S UPPLEMENT 02/07/25 02/13/25 History tablet,extended release (C Complex) cholecalciferol (vitamin D3) 25 25 mcg PO DAILY SUPPLE MENT 02/07/25 02/13/25 History mcg (1,000 unit) tablet (Vitamin D3) lisinopril 5 mg tablet 5 mg PO BID KIDNEY PREVENTIO N 02/07/25 02/13/25 History magnesium 250 mg tablet 750 mg PO DAILY SUPPLEMENT 0 02/07/25 02/13/25 History saw palm 160 mg-vit E 100 2 tab PO TID SUPPLEMENT 01/2902/13/25 History unit-selen 100 pth-eelg-xtzosn-pygeum tablet (Prostate Health) vitamin K2 100 mcg capsule 100 mcg PO DAILY SUPPLEMENT 02/07/25 02/13/25 History Allergy/AdvReac Type Severity Reaction Status Date / Time No Known Allergies Allergy Verified 02/14/25 10:16 Surgical History (Updated 02/14/25 @ 16:[address] Yomi Dempsey, DO) Hx of right cataract extraction Hx of left cataract extraction Hx of appendectomy History of right hip replacement Social History (Updated 01/13/25 @ 10:24 by Alida Augustin) Smoking Status: Never smoker Smokeless tobacco user: snuff alcohol intake: current alcohol intake frequency: holidays/special occasions only ROS Review of Systems ROS Unobtainable: due to encephalopathy Physical Exam Const Constitutional Narrative: Elderly male, class II obesity, lethargic, arousable but not following any commands, otherwise breathing comfortably on BiPAP at rest. Orientation / Consciousness: lethargic HEENT normocephalic, head/scalp atraumatic and nasal mucous membranes and turbinates normal Eyes PERRL, EOMs intact bilaterally and conjunctivae normal Neck full ROM Chest inspection of chest normal Resp normal respiratory effort and no use of accessory muscles Resp Narrative: Breathing comfortably on BiPAP at rest. Diminished breath sounds in bilateral lung bases with crackles noted in mid right lung zone. No wheezing noted. Cardio regular rate, regular rhythm, no murmurs and peripheral pulses 2+ throughout GI normal to inspection, nondistended, normoactive bowel sounds, soft to palpation,non-tender and non-distended Back/Spine normal ROM Extremity Extremity Narrative: Left hip with surgical dressing and ice in place. Skin no rashes or lesions noted Lab / Micro Data Labs: Laboratory Results - last 24 hr 02/14/25 09:31: POC Glucose 278 H 02/14/25 13:51: POC Glucose 167 H ABG Data ABG results: ABG 02/14/25 14:30 Specimen Type ART Sample Site R Brach pH 7.15 L* Bicarbonate Actual 29.2 H Total CO2 32 Base Excess 0 O2 Saturation 94 L O2 % 40.0 ABG pCO2 84.8 H* ABG pO2 94 Respiration Rate 16 O2 Delivery Device BiPAP Vent Mode Not entered Tidal Volume 500.0 POC PEEP 10 Crit Call To/Read Back Yes Blood Gas Notified Whom CALIXTO NUNEZ Blood Gas Notified Time 14:32:13 Clinical Comments AVAPS Imaging Radiology Impression Hip X-Ray 02/14/25 13:30 IMPRESSION: Status post left total hip replacement. There is good alignment. Postoperative soft tissue changes. Reading Location: [place] [address] Charges/Coding Visit Charges Inpatient E&M: 83229 Subs Hosp L3 02/14/25 1646 Cosigner Signature (if applicable): CC: Dr. Tess Hernandez MD; Dr. Rasheed Galindo DO~ Signed [facility]06-17-2025 History and physical note Author [facility] Note Date/Time February 14, 2025 1:35 pm [facility] Medical Records Department [address] [place] [address] History & Physical Exam 02/14/25 1334 MR#: [id number] Acct: [id number] Name: JEREMIAH VILLA Rep #:[id number] : 1945 79 From: Rasheed Galindo DO PCP: Dr. Tess Hernandez MD Status:ADM I N Location: [facility] A-3 History and Physical Date of Admission: 02/14/25 [facility] [address] [place] [id number] OFFICE VISIT Date of Service: 01/13/25 MR#: [id number] Acct: [id number] Name: JEREMIAH VILLA Rep #: [id number] : 1945 Provider: Dr. Rasheed Galindo DO Age/Sex: 79/M Location: [facility] Status: Signed Intake Vital Signs 01/13/2510:22 Height 5 ft 11 in Weight: 265 lb BMI 36.9 Intake Visit Reasons: LEFT HIP Allergies No Known Allergies Allergy (Unverified 01/13/25 10:22) Medications ?Medication ?Instructions ?Recorded ?Confirmed ?Type glipizide 5 mg tablet 5 mg PO BID 01/13/25 01/13/25 History Have you fallen in the past year?: No PFSH Medical History (Updated 01/13/25 @ 12:[address] Rasheed Galindo DO) Pulmonary embolism Diabetes Surgical History (Updated 01/13/25 @ 10:23 by Alida Augustin) History of right hip replacement Social History Smoking Status: Never smoker Smokeless tobacco user: snuff alcohol intake: current alcohol intake frequency: holidays/special occasions only HPI LEFT HIP Details: This documentation accurately reflects the service provided and the decisions made by me, Dr. Rasheed Galindo DO 01/13/25 0801. Part of today?s visit was documented by Abbie AHUMADA, acting as scribe. JEREMIAH VILLA is a 79 year old M here today for left hip pain that he has had for the last couple of years but has worsened over time. He states that his pain is over lateral hip and upper groin. He denies low back pain. He denies radiating pain ,numbness, tingling or other associated symptoms. He does ambulate with a rollator walker due to the hip pain and feels if it continues to progress he is in the loses ability to ambulate because of the hip. He denies previous injury or surgery to the hip. He denies physical therapy. He did have some injections at a [facility] facility in [place] that is supposed to help regenerate cartilage but those did not give him any relief about a year ago. He denies taking anything for the pain. He denies recent imaging of the hip. Patient did have his right hip replaced in 2013 and 9 days after surgery he fell and was unconsious and ended up with a PE. This was his only history of blood clot he did have an IVC filter placed but then removed. Ortho Exam General General: Yes no acute distress and Yes well groomed Neurologic: Yes alert and Yes oriented x3 Psychologic: Yes reasonable and appropriate Left Hip Skin/Wound: No Ecchymosis, No soft tissue swelling and No Erythema Hip: Present tender to palpate -; Absent eccymosis, soft tissue swelling or erythema internal rotation @90 degree flexion: 0 degrees external rotation @90 degree extension: 15 degrees Special Tests: Yes pain with log roll, TTP Greater Troch, RROM flexion pain, FADIR and FADER HIP: large abdominal panus exquisitely tender over troch bursa internal and external roatation with reproduction of pain 4/5 hip flexion Very limited hip motion Intact sensation to light touch throughout the lower extremity he is able to plantarflex and dorsiflex his ankle Head: Normocephalic Atraumatic Chest: symmetrical rise, non-labored breathing, no audible wheeze Abdomen: no guarding, non-rigid Supplemental Info 01/13/2025 x-ray lumbar spine: Advanced lower lumbar facet arthrosis possible spondylolysis of L5 there is anterior osteophyte bridging of the vertebral bodies 01/13/2025 x-ray left hip: Advanced hip arthrosis [id number] 12/24/2024 lab work from [facility]: White blood cell count 9.7 absolute neutrophils within normal limits ,, platelets within normal limits uric acid 4.4EGFR is 46 creatinine is 1.55 CRP was 16.77 hemoglobin A1c is 6.3 Coding Level of Care Code Off vis,new,level 3 Diagnoses Primary osteoarthritis of left hip M16.12 Osteoarthritis type: primary Lumbar spondylosis M47.816 Trochanteric bursitis, left hip M70.62 Assessment and Plan Assessment and Plan (1) Degenerative joint disease of left hip: Status: Acute Qualifiers: Osteoarthritis type: primary Qualified Code(s): M16.12 - Unilateral primary osteoarthritis, left hip (2) Lumbar spondylosis: Status: Acute (3) Trochanteric bursitis, left hip: Status: Acute Orders: Orders HIP, UNI W/ Pelvis 2-3 Views Today M25.552 - Pain in left hip Lumbar Spine 2 or 3 Views Today M54.50 - Low back pain, unspecified Plan Patient is here today for left hip pain. I obtained and reviewed xrays today andadvised patient that he does have advanced arthritis of the hip as well trochanteric bursitis. he does also have advanced arthritis of his lumbar spinewhich can contribute to recurrent trochanteric bursitis. I spoke with patient that his treatment options are do nothing, physical therapy, injection into the hip bursa, or a JAMES. If he were to have his hip replaced he would still have thepain from the bursitis. Patient does have concerns of getting a blood clot afterthe surgery. he feels that he would need to to stay somewhere for rehab after surgery. I did review some lab work that patient did bring in today and spoke with him that his CRP inflammatory marker was very high. I would suggest he see his PCP to go over the inflammatory markers to see what is causing the elevationand to get cleared for surgery. He would like to proceed with left total hip arthroplasty. Risks, benefits and alternatives of surgery reviewed including but not limited to bleeding, infection, nerve, foot drop, artery and/or tissue damage, fracture,VTE, leg length discrepancy, dislocation, need for hip precautions, continued pain particularly lateral hip and expected post-operative course. I did review hip precautions today with patient that he would have after surgery for 3 months. I spoke with patient regarding his kidney function and that it is low but I do not think that it would prohibit him from proceeding with surgery. With his history of pulmonary embolism I would like him to continue Eliquis for 35 days postoperatively. he should not take any NSAIDs a week before surgery. He should stop tumeric andfish oil 3 weeks before surgery as well. We did provide him with soaps and drinks. Will need CT scan for MAKOplasty. Tentative surgery date admission February 14, 2025 with planned rehab. 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 Clinical Quality Measures Falls Risk Screening/Assistive Devices Have you fallen in the past year?: No 01/13/25 1208 <Electronically signed by Rasheed Galindo DO> Date Rasheed Galindo DO I have examined the patient and the H&P has been reviewed. There are no clinicalchanges since date of exam. 02/14/25 2155 <Electronically signed by Rasheed Galindo DO> Cosigner Signature (if applicable): CC: Dr. Tess Hernandez MD; Dr. Rasheed Galindo DO~ Signed [facility] Work Phone: 1(673) 881-137506-17-2025 Consult note [facility] Medical Records Department [address] [place] [address] Anesthesia Postop Eval I 02/14/25 1518 MR#: [id number] Acct: [id number] Name: JEREMIAH VILLA Rep #:[id number] : 1945 79 From: Richar robbins LEAFLET DISTRIBUTOR PCP: Dr. Tess Hernandez MD Status:ADM I N Y Race: C Location: [place] [address] Anesthesia: Postop Eval I Current Vital Signs Temperature: 97 F Pulse Rate: 80 Blood Pressure: 100/75 (bp treated with phenylephrine) Respiratory Rate: 18 Pulse Ox: 95 Oxygen Delivery Method: Bi-pap (patient with respirtory acidosis retained CO2) Fraction of Inspired Oxygen (FIO2): 0.40 Assessment Airway patent: Yes Spontaneous unlabored respirations: Yes Mental status: Unresponsive nausea: No Vomiting: No Anesthesia Complication: Yes Anesthesia Complication Comment:: CO2 narcosis Fluid Hydration Crystalloid volume administer (ml): 2,000 Total IV fluid infused: 2,000 Progress Note Anesthesia document: Postop Eval 1 completed: Yes 02/14/25 1521 ero LEAFLET DISTRIBUTOR> Date _ Richar Smith LEAFLET DISTRIBUTOR Cosigner Signature: Date CC: ~ Signed [facility]06-17-2025 Radiology Diagnostic study note [facility] Imaging Services [address] [place], [place] [address] Chest 1 View (Portable) MR#: [id number] Acct: [id number] Name: JEREMIAH VILLA Rep #: [id number] : 1945 M 79 From: Srinivasa Polanco MD PCP: Dr. Tess Hernandez MD Status: ADM I N Study:Chest 1 View (Portable) Date of Exam: 02/14/25 Exam# [id number] Ordering Dr: Chris Alberts MD PROCEDURE: CHEST 1 VIEW (PORTABLE) 02/14/2025 REASON FOR EXAM: HYPERCAPNEA, UNRESPONSIVE TECHNIQUE: Frontal view of the chest. COMPARISON: None FINDINGS: Hardware: EKG electrodes are seen. Heart: The heart size is normal. Lungs: Infiltrate in the right upper lobe. Radiographic follow-up recommended. Bones: Degenerative changes are identified within the thoracic spine. Other: RAD/Chest 1 View (Portable) IMPRESSION: Right upper lobe infiltrate. Radiographic follow-up recommended. Reading Location: [place] [address] CC: Dr. Chris Alberts MD; Dr. Tess Hernandez MD ~ Referral Clerk: Signed [facility]06-17-2025 Radiology Diagnostic study note [facility] Imaging Services [address] [place], [place] [address] Hip Min 2 Views (Portable) MR#: [id number] Acct: [id number] Name: JEREMIAH VILLA Rep #: [id number] : 1945 M 79 From: Srinivasa Polanco MD PCP: Dr. Tess Hernandez MD Status: ADM I N Study:Hip Min 2 Views (Portable) Date of Exam : 02/14/25 Exam# [id number] Ordering Dr: Rasheed Galindo DO PROCEDURE: HIP MIN 2 VIEWS (PORTABLE) 02/14/2025 REASON FOR EXAM: POST OP TECHNIQUE: HIP MIN 2 VIEWS (PORTABLE) COMPARISON: Prior study dated January 13, 2025. FINDINGS: The patient is status post left total hip replacement. There is good alignment. Postoperative soft tissue changes. RAD/Hip Min 2 Views (Portable) IMPRESSION: Status post left total hip replacement. There is good alignment. Postoperative soft tissue changes. Reading Location: [place] [address] CC: Dr. Tess Hernandez MD; Dr. Rasheed Galindo DO ~ Referral Clerk: Signed [facility]06-17-2025 Procedure note [facility] Medical Records Department [address] [place] [address] Operative Report 02/14/25 1335 MR#: [id number] Acct: [id number] Name: JEREMIAH VILLA Rep #:[id number] : 1945 79 From: Rasheed Galindo DO PCP: Dr. Tess Hernandez MD Status:ADM I N Location: [place] [address] Operative Report (Standard) Operative Information Date of Procedure: 02/14/25 Pre-Operative Diagnosis: Left hip DJD Post-Operative Diagnosis: Same Surgery/Procedure Performed: Left total of arthroplasty hog feeder: Yes Sales Administration Specialist: Randolph Yang Tasks completed by advertising assistant manager: Opening & closing and Implanting device Type of Anesthesia: Spinal RN Documented Start/Stop Times: Operation Date: 02/14/25 10:45 Case Time Into Pre-Op 02/14/25 09:03 Anesthesia Start 02/14/25 11:09 Into Room 02/14/25 11:09 Procedure Start 02/14/25 11:36 Procedure Start Time: 11:36 Procedure Stop Time: 13:37 Select all DRAINS/GRAFTS/IMPLANTS that apply: Prosthetic device Prosthetic device details: Faraz Estimated Blood Loss: 175 Specimen collected: Yes Description of specimen(s) removed: Femoral head Description of surgery: Preoperative diagnosis: Left hip DJD Postoperative diagnosis: Same Procedure: CT-guided Makoplasty assisted left total hip arthroplasty Implants: [place] Accolade II stem size 8, 127 degree neck angle 0 head neck length 52 mm Trident II acetabular shell with 40 mm cancellous screw 36 mm ceramic head, 10 degree Trident X3 polyethyleneinsert. Anesthesia: Spinal EBL: 175 cc Complications: None Condition: Stable to PACU Athletic Director Randolph Yang. My physician office assistant receptionist was a vital part of this case. He was important in appropriate retraction during the case, and protection of soft tissues during procedure. His intimateknowledge of the case and my steps aided in safe and expedient completion of the procedure as well as appropriate position of the extremity during the case. He was also vital in assisting with closure under my direct supervision. Indication for procedure: This is a 79-year-old male who has had long-standing arthrosis of the hipwho had previously had his right hip replaced by another surgeon many years ago and has significantshortening of the left side, who hasfailed conservative treatment and wished to undergo total hip arthroplasty. We did discuss operative versus nonoperative intervention including risks of bleeding, infection , nerve artery tissue damage, need for further surgery, fracture, leg length discrepancy dislocation blood clot and need for postoperative physical therapy and postoperative expectations. Aninformed consent was signed. Procedure: Patient was met in the preoperative holding area once again the operative extremity was identified by both patient and physician and was marked. Patient was met by anesthesia . Anesthesia was started. patient was then positioned in the lateral decubitus position on a well-padded pegboardwith an axillary roll. All bony prominences were checked and padded. The patient was prepped and draped in the usual sterile fashion. A timeout was called to ensurethe proper patient procedure and extremity were being contemplated. Anatomic landmarks were palpated and marked for a standard posterior lateral approach. Prior to this the ASIS was palpated and 3 fingerbreadths proximal to this 3 pinswere placed at a 45 degree angle into the iliac crest with good purchase, stab incisions were made with a 15 blade into the skin prior to placement. The Makoplasty array was then secured. A 10 blade scalpel was used to make a posterior incision through the skin and subcutaneous tissue. retractors were used and electrocautery was used to maintain meticulous hemostasis and dissect full-thickness flaps until the gluteal fascia was reached. The gluteal fascia was incised in line with the gluteal fibers. The bursal tissue was then freed from the underside and a Charnley retractor was placed. The femoral trochanteric checkpoint was placed and leg length was assessed using the trochanteric checkpoint and an EKG lead that was placed on the knee prior to prepping the leg .the fat pad was then elevated off of the external rotators with electrocautery and the external rotators were dissected off ofthe greater trochanter including the piriformis and were tagged with #1 Ethibond for later repair. The joint capsule opened with posterior trapdoor technique. The hip was surgically dislocated. The measurement on the preoperative CT from the top of the lesser trochanter to the femoral neck cut was marked Hohmann was placed around the lesser trochanter. A neck cutting guide was used to jim the neck with a Bovie and an oscillating saw was used complete the femoral neck cut. Thefemoral head was then removed and sized. We then turned our attention to the acetabulum. A Bovie was used to make a perforation in the anterior joint capsule and a Correa retractor was placed this was repeated in the 6 o'clock position and a wide kenyon was placed there. With a long handled knife the labral and pulvinar tissue were removed. We then registered the acetabulum withthe pointing array and confirmed our landmarks. Once the socket was thoroughlyprepared and labral tissue and pulvinar was removed we single reamed with the robotic arm. We then used the robotic arm to position the acetabular implant and impacted it into place under robotic guidance. We then proceeded to place aposterior superior screw by drilling first measuring and inserting the screw. We then inserted a trial liner. And turned our attention back to the femur at this point a femoral elevator was used. As well as a pointed wide Hohmann around the lesser trochanter and a Hohmann to help retract the gluteus medius. A box chisel was used to remove excess lateral neck followed by a canal finder and a lateralizing reamer. This was followed by sequential broaches. Attentionwas made of the version within the canal based on preoperative templating. Oncethe final broach was seated we then trialed reduced the hip it was determined that a 127 degree neck angle with a neutral neck length was the appropriate size. We then checked stability with shuck testing as well as flexion and internal rotation. then proceeded with hip extensionand checked leg lengths atthe knees and heels as well as with the trochanteric checkpoint and knee EKG lead. At this point trials were removed. A liner was inserted to the cup. Thefemoral stem was inserted. We re-trialed and then proceeded to impact the femoral head onto the Mina taper. We then surgically reduce the hip check stability again and leg lengths and were satisfied. Betadine rinse was allowed to sit for 5 minutes while everyone changed their gloves. Thorough irrigation was performed. Followed by closure of the external rotators with #2 FiberWire followed by closure of gluteal fascia with #1 Ethibond. 0 Vicryl fat stitches and 2-0 Vicryl subcutaneous stitches and milagros in the skin. [place] were placed in the skin pin sites over the iliac crest and dressed with a Mepilex dressing. The main incision was dressed with a Mepilex ag dressing and an abduction pillow was placed. Patient tolerated the procedure well there was no intraoperative complications all counts were correct and the patient was broughtback to the PACU in stable condition Surgical Findings: Advanced hip arthrosis Complications Complications: No 02/14/25 1337 Cosigner Signature (if applicable): CC: Dr. Tess Hernandez MD; Dr. Rasheed Galindo DO~ Signed [facility]06-17-2025 History and physical note [facility] Medical Records Department [address] [place] [id number] History & Physical Exam 02/14/25 1334 MR#: [id number] Acct: [id number] Name: JEREMIAH VILLA Rep #:[id number] : 1945 79 From: Rasheed Galindo DO PCP: Dr. Tess Hernandez MD Status:ADM I N Location: [place] [address] History and Physical Date of Admission: 02/14/25 [facility] [address] [place] [address] [place], [place] [id number] OFFICE VISIT Date of Service: 01/13/25 MR#: [id number] Acct: [id number] Name: JEREMIAH VILLA Rep #: [id number] : 1945 Provider: Dr. Rasheed Galindo DO Age/Sex: 79/M Location[place] [facility] [place] Status: Signed Intake Vital Signs 01/13/2510:22 Height 5 ft 11 in Weight: 265 lb BMI 36.9 Intake Visit Reasons: LEFT HIP Allergies No Known Allergies Allergy (Unverified 01/13/25 10:22) Medications ?Medication ?Instructions ?Recorded ?Confirmed ?Type glipizide 5 mg tablet 5 mg PO BID 01/13/25 01/13/25 History Have you fallen in the past year?: No [facility] Medical History (Updated 01/13/25 @ 12:[address] Rasheed Galindo DO) Pulmonary embolism Diabetes Surgical History (Updated 01/13/25 @ 10:23 by Alida Augustin) History of right hip replacement Social History Smoking Status: Never smoker Smokeless tobacco user: snuff alcohol intake: current alcohol intake frequency: holidays/special occasions only HPI LEFT HIP Details: This documentation accurately reflects the service provided and the decisions made by me, Dr. Rasheed Galindo DO 01/13/25 0801. Part of today?s visit was documented by Abbie AHUMADA, acting as scribe. JEREMIAH VILLA is a 79 year old M here today for left hip pain that he has had for the last couple of years but has worsened over time. He states that his pain is over lateral hip and upper groin. He denies low back pain. He denies radiating pain ,numbness, tingling or other associated symptoms. He does ambulate with a rollator walker due to the hip pain and feels if it continues to progress he is in the loses ability to ambulate because of the hip. He denies previous injury or surgery to the hip.He denies physical therapy. He did have some injections at a [facility] facility in [place] that is supposed to help regenerate cartilage but those did not give him any relief about a year ago.He denies taking anything for the pain. He denies recent imaging of the hip. Patient did have his right hip replaced in 2013 and 9 days after surgery he fell and was unconsious and ended up with a PE. This was his only history of blood clot he did have an IVC filter placed but then removed. Ortho Exam General General: Yes no acute distress and Yes well groomed Neurologic: Yes alert and Yes oriented x3 Psychologic: Yes reasonable and appropriate Left Hip Skin/Wound: No Ecchymosis, No soft tissue swelling and No Erythema Hip: Present tender to palpate -; Absent eccymosis, soft tissue swelling or erythema internal rotation @90 degree flexion: 0 degrees external rotation @90 degree extension: 15 degrees Special Tests: Yes pain with log roll, TTP Greater Troch, RROM flexion pain, FADIR and FADER HIP: large abdominal panus exquisitely tender over troch bursa internal and external roatation with reproduction of pain 4/5 hip flexion Very limited hip motion Intact sensation to light touch throughout the lower extremity he is able to plantarflex and dorsiflex his ankle Head: Normocephalic Atraumatic Chest: symmetrical rise, non-labored breathing, no audible wheeze Abdomen: no guarding, non-rigid Supplemental Info 01/13/2025 x-ray lumbar spine: Advanced lower lumbar facet arthrosis possible spondylolysis of L5 there is anterior osteophyte bridging of the vertebral bodies 01/13/2025 x-ray left hip: Advanced hip arthrosis [id number] 12/24/2024 lab work from [facility]: White blood cell count 9.7 absolute neutrophils within normal limits ,, platelets within normal limits uric acid 4.4EGFR is 46 creatinine is 1.55 CRP was 16.77hemoglobin A1c is 6.3 Coding Level of Care Code Off vis,new,level 3 Diagnoses Primary osteoarthritis of left hip M16.12 Osteoarthritis type: primary Lumbar spondylosis M47.816 Trochanteric bursitis, left hip M70.62 Assessment and Plan Assessment and Plan (1) Degenerative joint disease of left hip: Status: Acute Qualifiers: Osteoarthritis type: primary Qualified Code(s): M16.12 - Unilateral primary osteoarthritis, left hip (2) Lumbar spondylosis: Status: Acute (3) Trochanteric bursitis, left hip: Status: Acute Orders: Orders HIP, UNI W/ Pelvis 2-3 Views Today M25.552 - Pain in left hip Lumbar Spine 2 or 3 Views Today M54.50 - Low back pain, unspecified Plan Patient is here today for left hip pain. I obtained and reviewed xrays today andadvised patient that he does have advanced arthritis of the hip as well trochanteric bursitis. he does also have advanced arthritis of his lumbar spinewhich can contribute to recurrent trochanteric bursitis. I spoke with patient that his treatment options are do nothing, physical therapy, injection into the hip bursa,or a JAMES. If he were to have his hip replaced he would still have thepain from the bursitis. Patient does have concerns of getting a blood clot afterthe surgery. he feels that he would need to to stay somewhere for rehab after surgery. I did review some lab work that patient did bring in today and spoke with him that his CRP inflammatory marker was very high. I would suggest he see his PCP to go over the inflammatory markers to see what is causing the elevationand to get cleared for surgery. He would like to proceed with left total hip arthroplasty. Risks, benefits and alternatives of surgery reviewed including but not limited to bleeding, infection, nerve, foot drop, artery and/or tissue damage, fracture,VTE, leg length discrepancy, dislocation, need for hip precautions, continued pain particularly lateral hip and expected post-operative course. I did review hip precautions today with patient that he would have after surgery for 3 months. Ispoke with patient regarding his kidney function and that it is low but I do not think that it would prohibit him from proceeding with surgery. With his history of pulmonary embolism I would like him to continue Eliquis for 35 days postoperatively. he should not take any NSAIDs a week before surgery. He should stop tumeric andfish oil 3 weeks before surgery as well. We did provide him with soaps and drinks. Will need CT scan for MAKOplasty. Tentative surgery date admission February 14, 2025 with planned rehab. 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 Clinical Quality Measures Falls Risk Screening/Assistive Devices Have you fallen in the past year?: No 01/13/25 1208 Date Rasheed Galindo DO I have examined the patient and the H&P has been reviewed. There are no clinicalchanges since date of exam. 02/14/25 1335 Cosigner Signature (if applicable): CC: Dr. eTss Hernandez MD; Dr. Rasheed Galindo, DO~ Signed [facility]06-17-2025 [facility]06-17-2025 Consult note Author Chris Alberts [facility] Note Date/Time February 14, 2025 10:3 6am [facility] Medical Records Department [address] [place] [address] Pre-Anesthesia Evaluation 02/14/25 1027 MR#: [id number] Acct: [id number] Name: JEREMIAH VILLA Rep #:[id number] : 1945 79 From: Chris Alberts MD PCP: Dr. Tess Hernandez MD Status:ADM I N Y Race: C Location: [place] [address] ASA Classification* ASA Classification ASA Classification: 3 (CKD3, tobacco use, HTN, DM) Assessment & Plan Anesthesia* Anesthesia Assessment Anesthesia Assessment: Discussed sedation and/or anesthesia options, risks, benefits, and alternatives with patient/parents/legal guardian/POA. Questions invited. The patient/parents/legal guardian/POA seems to understand and agrees to proceedwith anesthesia plan. Reviewed the physical assessment, medical history, allergy history and patient home medications list prior to surgery/procedure/anesthetic and documented any changes. Performed airway and anesthesia risk assessments. Anesthesia Type Anesthesia Type: Spinal History Source History Obtained from:: Patient and Chart Anesthesia Focused Assessment* Temperature: 98 F Pulse Rate: 87 Blood Pressure: 155/64 Respiratory Rate: 16 Pulse Ox: 95 Oxygen Delivery Method: Room Air Airway Assessment Mouth opens: >3 cm Mallampati Score: II Teeth Condition: Missing (missing many teeth) Neck Range of motion (ROM): Full ROM Labs Anesthesia Preop lab: CBC WBC 8.4 K/mm3 (4.4-11.0) 02/03/25 12:12 02/03/25 RBC 5.04 M/mm3 (4.6-6.2) 02/03/25 12:12 02/03/25 Hgb 15.8 g/dL (13.0-16.5) 02/03/25 12:12 02/03/25 Hct 46.3 % (40-54) 02/03/25 12:12 02/03/25 Plt Count 224 K/mm3 (150-450) 02/03/25 12:12 02/03/25 CHEMISTRY Potassium 4.6 mmol/L (3.3-5.1) 02/03/25 12:12 02/03/25 Sodium 139 mmol/L (133-145) 02/03/25 12:12 02/03/25 Magnesium 2.2 mg/dL (1.5-2.2) 02/03/25 12:12 02/03/25 BUN 18 mg/dL (4-19) 02/03/25 12:12 02/03/25 Creatinine 1.59 mg/dL (0.70-1.20) H 02/03/25 12:12 Glucose 171 mg/dL (70-99) H 02/03/25 12:12 02/03/25 POC Glucose 278 mg/dL (74-106) H 02/14/25 09:31 02/14/25 COAG PT 13.0 SECONDS (11.7-14.9) 02/03/25 12:12 Pre-Assessment Diagnosis/Proposed Procedure Planned Operative Procedure(s): LEFT TOTAL HIP ARTHROPLASTY Anesthesia History 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 When Was Last Pacemaker Check QUESTION #4 FULL TEXT: You/Your Family Experience fever (hyperthermia) with Anesthesia Last Oral Intake Last Oral intake: Last Oral Intake NPO since 08:40 02/14/25 10:06 Meds taken in AM with sips of Yes 02/14/25 10:06 water? 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 Female No 02/07/25 12:20 HX of Motion Sickness No 02/07/25 12:20 HX of N/V After Surgery No 02/07/25 12:20 Non-Smoker Yes 02/07/25 12:20 Duration of Surgery greater Yes 02/07/25 12:20 than 60 minutes Number of Risk Factors 2 02/07/25 12:20 PONV Score Moderate Risk 02/07/25 12:20 Height & Weight Height & Weight: Anesthesia: Height & Weight Height 5 ft 11 in 02/14/25 10:06 Weight: 119 kg 02/14/25 10:06 Body Mass Index (BMI) 36.6 02/14/25 10:06 Respiratory Assessment Respiratory Assessment - 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 Has anyone observed you stop No 02/07/25 12:20 breathing during sleep? STOP Results Negative 02/07/25 12:20 QUESTION #5 FULL TEXT : Do you snore loudly (louder than talking or can be heard through closed doors)? 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 Specify any problems Hx of Preganancy in last 3 N/A 02/07/25 12:20 Months Nurse Filling Out Transfusion DSCHRIBER 02/07/25 12:20 & Questions: Date: 02/07/25 02/07/25 12:20 Time: :02/07/25 12:20 Patient unable to answer at this time (ie. 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 supervisor open pit: /Reproductive Hx- quarry supervisor open pit Hx Now No 02/07/25 12:20 Gestational Age (in weeks): EDC: Hx Hx Para Hx Section SAB No 02/07/25 12:20 Active Medications Active Medications: Current Medications Generic Name Dose Route Start Last Admin Trade Name Freq PRN Reason Stop Dose Admin Acetaminophen 1,000 mg 02/14/25 10:45 Acetaminophen 500 Mg Tablet PO 02/14/25 10:46 PREOP ONE Celecoxib 400 mg 02/14/25 10:45 Celecoxib 200 Mg Capsule PO 02/14/25 10:46 PREOP ONE Dexamethasone Sodium Phosphate 10 mg 02/14/25 10:45 Dexamethasone 10 Mg/Ml Vial IV 02/14/25 10:46 INTRAOP ONE Gabapentin 600 mg 02/14/25 10:45 Gabapentin 600 Mg Tablet PO 02/14/25 10:46 PREOP ONE Lactated Ringer's 1,000 mls @ 999 mls/hr 02/14/25 10:45 IV 02/14/25 11:45 .Q1H1M SILVER Cefazolin Sodium 3 gm/ Sodium 115 mls @ 150 mls/hr 02/14/25 10:45 Chloride IV 02/14/25 11:30 INTRAOP ONE Tranexamic Acid 2,000 mg/ 120 mls @ 280 mls/hr 02/14/25 10:45 Sodium Chloride IV 02/14/25 11:10 INTRAOP ONE Lactated Ringer's 1,000 mls @ 100 mls/hr 02/14/25 10:45 IV 02/14/25 20:44 .Q10H SILVER Lactated Ringer's 1,000 mls @ 125 mls/hr 02/14/25 10:45 IV 02/14/25 18:44 .Q8H SILVER Magnesium Sulfate 1 gm/ 102 mls @ 408 mls/hr 02/14/25 10:45 Dextrose IV 02/14/25 10:59 INTRAOP ONE Insulin Human Lispro 1 - 6 unit 02/14/25 10:45 Insulin Lispro 100 Unit/Ml Insuln.Pen SC 02/14/25 18:00 Q4H PRN PRN BG>/= 180, SEE PROTOCOL Protocol Scopolamine HBr 1 patch 02/14/25 10:45 Scopolamine 1mg/72hr Patch TD 02/14/25 10:46 PREOP ONE PFSH Medical History (Updated 02/07/25 @ 12:36 by Izzy Beard) Wears glasses Wears partial dentures Alcohol use Rash Walker as ambulation aid Arthritis History of renal disease High cholesterol Back pain Syncope Dietary restriction Constipation Chewing tobacco use History of pain when walking Hypertension Pulmonary embolism Diabetes Home Medications ?Medication ?Instructions ?Recorded ?Last Taken ?Type glipizide 5 mg tablet 5 mg PO BID BLOOD GLUCOSE 02/13/25 History ascorbic acid (vitamin C) 1,000 mg 2,000 mg PO DAILY S UPPLEMENT 02/07/25 02/13/25 History tablet,extended release (C Complex) cholecalciferol (vitamin D3) 25 25 mcg PO DAILY SUPPLE MENT 02/07/25 02/13/25 History mcg (1,000 unit) tablet (Vitamin D3) lisinopril 5 mg tablet 5 mg PO BID KIDNEY PREVENTIO N 02/07/25 02/13/25 History magnesium 250 mg tablet 750 mg PO DAILY SUPPLEMENT 0 02/07/25 02/13/25 History saw palm 160 mg-vit E 100 2 tab PO TID SUPPLEMENT 01/2902/13/25 History unit-selen 100 mbc-rniv-ogtiop-pygeum tablet (Prostate Health) vitamin K2 100 mcg capsule 100 mcg PO DAILY SUPPLEMENT 02/07/25 02/13/25 History Allergy/AdvReac Type Severity Reaction Status Date / Time No Known Allergies Allergy Verified 02/14/25 10:16 Surgical History (Updated 02/07/25 @ 12:36 by Izzy Beard) Hx of right cataract extraction Hx of left cataract extraction Hx of appendectomy History of right hip replacement Social History (Updated 01/13/25 @ 10:24 by Alida Augustin) Smoking Status: Never smoker Smokeless tobacco user: snuff alcohol intake: current alcohol intake frequency: holidays/special occasions only Review of Systems (Anesthesia) ROS Narrative System reviewed and no additional complaints, except as documented. Physical Exam Const alert, oriented x3 and average body habitus Resp normal respiratory effort, normal air movement and clear to auscultation bilaterally Cardio regular rate, regular rhythm, no murmurs and diaphoretic 02/14/25 1036 <Electronically signed by Chris Alberts MD> Date _ Chris Alberts MD Cosigner Signature: Date CC: ~ Signed [facility] Work Phone: [phone] 998-495206-17-2025 Consult note [facility] Medical Records Department [address] [place] [address] Pre-Anesthesia Evaluation 02/14/25 1027 MR#: [id number] Acct: [id number] Name: JEREMIAH VILLA Rep #:[id number] : 1945 79 From: Chris Alberts MD PCP: Dr. Tess Hernandez MD Status:ADM I N Y Race: C Location: [place] [address] ASA Classification* ASA Classification ASA Classification: 3 (CKD3, tobacco use, HTN, DM) Assessment & Plan Anesthesia* Anesthesia Assessment Anesthesia Assessment: Discussed sedation and/or anesthesia options, risks, benefits, and alternatives with patient/parents/legal guardian/POA. Questions invited. The patient/parents/legal guardian/POA seems to understand and agrees to proceedwith anesthesia plan. Reviewed the physical assessment, medical history, allergy history and patient home medications list prior to surgery/procedure/anesthetic and documented any changes. Performed airway and anesthesia risk assessments. Anesthesia Type Anesthesia Type: Spinal History Source History Obtained from:: Patient and Chart Anesthesia Focused Assessment* Temperature: 98 F Pulse Rate: 87 Blood Pressure: 155/64 Respiratory Rate: 16 Pulse Ox: 95 Oxygen Delivery Method: Room Air Airway Assessment Mouth opens: >3 cm Mallampati Score: II Teeth Condition: Missing (missing many teeth) Neck Range of motion (ROM): Full ROM Labs Anesthesia Preop lab: CBC WBC 8.4 K/mm3 (4.4-11.0) 02/03/25 12:12 02/03/25 RBC 5.04 M/mm3 (4.6-6.2) 02/03/25 12:12 02/03/25 Hgb 15.8 g/dL (13.0-16.5) 02/03/25 12:12 02/03/25 Hct 46.3 % (40-54) 02/03/25 12:12 02/03/25 Plt Count 224 K/mm3 (150-450) 02/03/25 12:12 02/03/25 CHEMISTRY Potassium 4.6 mmol/L (3.3-5.1) 02/03/25 12:12 02/03/25 Sodium 139 mmol/L (133-145) 02/03/25 12:12 02/03/25 Magnesium 2.2 mg/dL (1.5-2.2) 02/03/25 12:12 02/03/25 BUN 18 mg/dL (4-19) 02/03/25 12:12 02/03/25 Creatinine 1.59 mg/dL (0.70-1.20) H 02/03/25 12:12 Glucose 171 mg/dL (70-99) H 02/03/25 12:12 02/03/25 POC Glucose 278 mg/dL (74-106) H 02/14/25 09:31 02/14/25 COAG PT 13.0 SECONDS (11.7-14.9) 02/03/25 12:12 Pre-Assessment Diagnosis/Proposed Procedure Planned Operative Procedure(s): LEFT TOTAL HIP ARTHROPLASTY Anesthesia History 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 When Was Last Pacemaker Check QUESTION #4 FULL TEXT: You/Your Family Experience fever (hyperthermia) with Anesthesia Last Oral Intake Last Oral intake: Last Oral Intake NPO since 08:40 02/14/25 10:06 Meds taken in AM with sips of Yes 02/14/25 10:06 water? 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 Female No 02/07/25 12:20 HX of Motion Sickness No 02/07/25 12:20 HX of N/V After Surgery No 02/07/25 12:20 Non-Smoker Yes 02/07/25 12:20 Duration of Surgery greater Yes 02/07/25 12:20 than 60 minutes Number of Risk Factors 2 02/07/25 12:20 PONV Score Moderate Risk 02/07/25 12:20 Height & Weight Height & Weight: Anesthesia: Height & Weight Height 5 ft 11 in 02/14/25 10:06 Weight: 119 kg 02/14/25 10:06 Body Mass Index (BMI) 36.6 02/14/25 10:06 Respiratory Assessment Respiratory Assessment - 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 Has anyone observed you stop No 02/07/25 12:20 breathing during sleep? STOP Results Negative 02/07/25 12:20 QUESTION #5 FULL TEXT : Do you snore loudly (louder than talking or can be heard through closeddoors)? 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 Specify any problems Hx of Preganancy in last 3 N/A 02/07/25 12:20 Months Nurse Filling Out Transfusion DSCHRIBER 02/07/25 12:20 & Questions: Date: 02/07/25 02/07/25 12:20 Time: 12:02/07/25 12:20 Patient unable to answer at this time (ie. 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 supervisor open pit: /Reproductive Hx- quarry supervisor open pit Hx Now No 02/07/25 12:20 Gestational Age (in weeks): EDC: Hx Hx Para Hx Section SAB No 02/07/25 12:20 Active Medications Active Medications: Current Medications Generic Name Dose Route Start Last Admin Trade Name Freq PRN Reason Stop Dose Admin Acetaminophen 1,000 mg 02/14/25 10:45 Acetaminophen 500 Mg Tablet PO 02/14/25 10:46 PREOP ONE Celecoxib 400 mg 02/14/25 10:45 Celecoxib 200 Mg Capsule PO 02/14/25 10:46 PREOP ONE Dexamethasone Sodium Phosphate 10 mg 02/14/25 10:45 Dexamethasone 10 Mg/Ml Vial IV 02/14/25 10:46 INTRAOP ONE Gabapentin 600 mg 02/14/25 10:45 Gabapentin 600 Mg Tablet PO 02/14/25 10:46 PREOP ONE Lactated Ringer's 1,000 mls @ 999 mls/hr 02/14/25 10:45 IV 02/14/25 11:45 .Q1H1M SILVER Cefazolin Sodium 3 gm/ Sodium 115 mls @ 150 mls/hr 02/14/25 10:45 Chloride IV 02/14/25 11:30 INTRAOP ONE Tranexamic Acid 2,000 mg/ 120 mls @ 280 mls/hr 02/14/25 10:45 Sodium Chloride IV 02/14/25 11:10 INTRAOP ONE Lactated Ringer's 1,000 mls @ 100 mls/hr 02/14/25 10:45 IV 02/14/25 20:44 .Q10H SILVER Lactated Ringer's 1,000 mls @ 125 mls/hr 02/14/25 10:45 IV 02/14/25 18:44 .Q8H SILVER Magnesium Sulfate 1 gm/ 102 mls @ 408 mls/hr 02/14/25 10:45 Dextrose IV 02/14/25 10:59 INTRAOP ONE Insulin Human Lispro 1 - 6 unit 02/14/25 10:45 Insulin Lispro 100 Unit/Ml Insuln.Pen SC 02/14/25 18:00 Q4H PRN PRN BG>/= 180, SEE PROTOCOL Protocol Scopolamine HBr 1 patch 02/14/25 10:45 Scopolamine 1mg/72hr Patch TD 02/14/25 10:46 PREOP ONE PFSH Medical History (Updated 02/07/25 @ 12:36 by Izzy Beard) Wears glasses Wears partial dentures Alcohol use Rash Walker as ambulation aid Arthritis History of renal disease High cholesterol Back pain Syncope Dietary restriction Constipation Chewing tobacco use History of pain when walking Hypertension Pulmonary embolism Diabetes Home Medications ?Medication ?Instructions ?Recorded ?Last Taken ?Type glipizide 5 mg tablet 5 mg PO BID BLOOD GLUCOSE 02/13/25 History ascorbic acid (vitamin C) 1,000 mg 2,000 mg PO DAILY S UPPLEMENT 02/07/25 02/13/25 History tablet,extended release (C Complex) cholecalciferol (vitamin D3) 25 25 mcg PO DAILY SUPPLE MENT 02/07/25 02/13/25 History mcg (1,000 unit) tablet (Vitamin D3) lisinopril 5 mg tablet 5 mg PO BID KIDNEY PREVENTIO N 02/07/25 02/13/25 History magnesium 250 mg tablet 750 mg PO DAILY SUPPLEMENT 0 02/07/25 02/13/25 History saw palm 160 mg-vit E 100 2 tab PO TID SUPPLEMENT 01/2902/13/25 History unit-selen 100 mgy-fcrc-cdujtv-pygeum tablet (Prostate Health) vitamin K2 100 mcg capsule 100 mcg PO DAILY SUPPLEMENT 02/07/25 02/13/25 History Allergy/AdvReac Type Severity Reaction Status Date / Time No Known Allergies Allergy Verified 02/14/25 10:16 Surgical History (Updated 02/07/25 @ 12:36 by Izzy Beard) Hx of right cataract extraction Hx of left cataract extraction Hx of appendectomy History of right hip replacement Social History (Updated 01/13/25 @ 10:24 by Alida Augustin) Smoking Status: Never smoker Smokeless tobacco user: snuff alcohol intake: current alcohol intake frequency: holidays/special occasions only Review of Systems (Anesthesia) ROS Narrative System reviewed and no additional complaints, except as documented. Physical Exam Const alert, oriented x3 and average body habitus Resp normal respiratory effort, normal air movement and clear to auscultation bilaterally Cardio regular rate, regular rhythm, no murmurs and diaphoretic 02/14/25 1036 MD> Date _ Chris Alberts MD Cosigner Signature: Date CC: ~ Signed [facility]06-06-2025 Radiology Diagnostic study note [facility] Imaging Services [address] [place] [address] Extremity Lower without Contra MR#: [id number] Acct: [id number] Name: JEREMIAH VILLA Gabi Rep #: [id number] : 1945 M 79 From: Shahab Menendez DO PCP: Dr. Tess Hernandez MD Status: REG C LI Study:Extremity Lower without Contra Date of Exam: 02/03/25 Exam# [id number] Ordering Dr: Rasheed Galindo DO PROCEDURE: EXTREMITY LOWER WITHOUT CONTRA 02/03/2025 REASON FOR EXAM: TEMPLATING FOR LEFT JAMES TECHNIQUE: Axial CT images of the pelvis and knees were obtained without the administrationof intravenous contrast. Coronal and Sagittal reconstruction series were provided. One or more dose reduction techniques were used (e.g., Automated exposure control, adjustment of the mA and/or kV according to patient size, use of iterative reconstruction technique). COMPARISON: None FINDINGS: See impression CT/Extremity Lower without Contra IMPRESSION: Severe left hip osteoarthritis including lvtq-xl-hzam articulation, osseous remodeling, subchondralsclerosis/cysts and marginal osteophytes. Negative for acute fracture or subluxation. Intact right hip prosthesis. Degenerative changes of the lower lumbar spine. Mild bilateral knee osteoarthritis. Diffuse vascular calcifications. Mild generalized muscular atrophy. Enlarged prostate gland. Reading Location: [facility] CC: ESTEPHANIE Hugo; Dr. Tess Hernandez MD; Dr. Rasheed Galindo DO ~ Referral Clerk: Signed [facility]05-16-2025 Evaluation note* Diagnosis Onset Date Resolution Status Admit Date 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 acute January 13, 2025 1 0:02am Lumbar spondylosis acute January 132024 10:02am Trochanteric bursitis, left hip acut e January 13, 2025 10:02am [facility] Work Phone: 1(588) 202-271205-16-2025 Evaluation note* Diagnosis Onset Date Resolution Status Admit Date 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 acute January 13, 2025 1 0:02am Lumbar spondylosis acute January 132024 10:02am Trochanteric bursitis, left hip acut e January 13, 2025 10:02am Acute hypercapnic respirator y failure acute February 14, 2025 1:33pm Coffee ground emesis acute February 14, 2025 1:33pm Diabetes acute February 14 1:33pm Left lumbar radiculitis acute [facility] 2024 1:33pm Status post left hip replacement acu te February 14, 2025 1:33pm [facility] Work Phone: 1(452) 545-275305-16-2025 Evaluation note* Diagnosis Onset Date Resolution Status Admit Date 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 inactive January 13, 2025 1 0:02am Lumbar spondylosis inactive January 132024 10:02am Trochanteric bursitis, left hip inac tive January 13, 2025 10:02am Status post left hip replacement acute February 14, 2025 1:33pm Acute hypercapnic respirator y failure resolved February 14, 2025 1:33pm Coffee ground emesis resolved February 14, 2025 1:33pm Left lumbar radiculitis inactive J [facility] 2024 1:33pm Diabetes deleted February 14 1:33pm Acute blood loss as cause of postoperative anemia acute February 17, 2025 3:15pm Aspiration pneumonia acute February 17, 2025 3:15pm DVT of lower limb, acute acute February 17, 2025 3:15pm Enlarged prostate acute February 172024 3:15pm Erosive esophagitis acute February 17, 2025 3:15pm Hiatal hernia with GERD acute J [facility] 2024 3:15pm Morbid obesity acute February 17, 2025 3:15pm Neutrophilic leukocytosis acute February 17, 2025 3:15pm Other acute postprocedural pain acut e February 17, 2025 3:15pm Physical debility acute February 172024 3:15pm Pulmonary embolism acute January 302024 3:15pm Status post left hip replacement acute February 17, 2025 3:15pm Superficial vein thrombosis acute February 17, 2025 3:15pm Urine retention acute January 3:15pm UTI (urinary tract infection ) due to urinary indwelling Tsang catheter acute February 17, 2025 3:15pm Chronic renal failure (CRF), stage 3b chronic February 17, 2025 3:15pm Diabetes mellitus, type 2 chronic February 17, 2025 3:15pm Diverticulosis chronic February 17, 2025 3:15pm Renal atrophy, right chronic February 17, 2025 3:15pm Sleep-disordered breathing chronic February 17, 2025 3:15pm Tobacco dependence in remission 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 February 17, 2025 3:15pm BPH (benign prostatic hyperplasia) suspected February 17, 2025 3:15pm Acute hypercapnic respirator y failure resolved February 17, 2025 3:15pm Acute renal failure superimposed on stage 3 chronic kidney disease resolved February 17, 2025 3:15pm Coffee ground emesis resolved February 17, 2025 3:15pm Dehydration resolved February 17 3:15pm Orthostatic hypotension resolved [facility] 2024 3:15pm KATHERINE (obstructive sleep apnea) delete d February 17, 2025 3:15pm [facility] Work Phone: 1(996) 217-725005-16-2025 Evaluation note* Diagnosis Onset Date Resolution Status Admit Date 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 inactive January 13, 2025 1 0:02am Lumbar spondylosis inactive January 132024 10:02am Trochanteric bursitis, left hip inac tive January 13, 2025 10:02am Status post left hip replacement acute February 14, 2025 1:33pm Acute hypercapnic respirator y failure resolved February 14, 2025 1:33pm Coffee ground emesis resolved February 14, 2025 1:33pm Left lumbar radiculitis inactive [facility] 2024 1:33pm Diabetes deleted February 14 1:33pm Acute blood loss as cause of postoperative anemia acute February 17, 2025 3:15pm DVT of lower limb, acute acute February 17, 2025 3:15pm Erosive esophagitis acute February 17, 2025 3:15pm Morbid obesity acute February 17, 2025 3:15pm Neutrophilic leukocytosis acute February 17, 2025 3:15pm Physical debility acute February 172024 3:15pm Status post left hip replacement acute February 17, 2025 3:15pm Superficial vein thrombosis acute February 17, 2025 3:15pm UTI (urinary tract infection ) due to urinary indwelling Tsang catheter acute February 17, 2025 3:15pm Sleep-disordered breathing chronic February 17, 2025 3:15pm BPH (benign prostatic hyperplasia) suspected February 17, 2025 3:15pm Acute hypercapnic respirator y failure resolved February 17, 2025 3:15pm Acute renal failure superimposed on stage 3 chronic kidney disease resolved February 17, 2025 3:15pm Aspiration pneumonia resolved February 17, 2025 3:15pm Coffee ground emesis resolved February 17, 2025 3:15pm Dehydration resolved February 17 3:15pm Orthostatic hypotension resolved [facility] 2024 3:15pm Other acute postprocedural pain reso lved February 17, 2025 3:15pm Urine retention resolved January 3:15pm Chronic renal failure (CRF), stage 3b inactive February 17, 2025 3:15pm Diabetes mellitus, type 2 inactive February 17, 2025 3:15pm Diverticulosis inactive February 17, 2025 3:15pm Enlarged prostate inactive February 172024 3:15pm Hiatal hernia with GERD inactive [facility] 2024 3:15pm Pulmonary embolism inactive January 302024 3:15pm Renal atrophy, right inactive February 17, 2025 3:15pm Tobacco dependence in remission inac tive February 17, 2025 3:15pm KATHERINE (obstructive sleep apnea) delete d February 17, 2025 3:15pm [facility] Work Phone: 1(779) 554-859505-16-2025 Evaluation note* Diagnosis Onset Date Resolution Status Admit Date 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 inactive January 13, 2025 1 0:02am Lumbar spondylosis inactive January 132024 10:02am Trochanteric bursitis, left hip inac tive January 13, 2025 10:02am Status post left hip replacement acute February 14, 2025 1:33pm Acute hypercapnic respirator y failure resolved February 14, 2025 1:33pm Coffee ground emesis resolved February 14, 2025 1:33pm Left lumbar radiculitis inactive [facility] 2024 1:33pm Diabetes deleted February 14 1:33pm Acute blood loss as cause of postoperative anemia acute February 17, 2025 3:15pm DVT of lower limb, acute acute February 17, 2025 3:15pm Erosive esophagitis acute February 17, 2025 3:15pm Morbid obesity acute February 17, 2025 3:15pm Neutrophilic leukocytosis acute February 17, 2025 3:15pm Physical debility acute February 172024 3:15pm Status post left hip replacement acute February 17, 2025 3:15pm Superficial vein thrombosis acute February 17, 2025 3:15pm UTI (urinary tract infection ) due to urinary indwelling Tsang catheter acute February 17, 2025 3:15pm Sleep-disordered breathing chronic February 17, 2025 3:15pm BPH (benign prostatic hyperplasia) suspected February 17, 2025 3:15pm Acute hypercapnic respirator y failure resolved February 17, 2025 3:15pm Acute renal failure superimposed on stage 3 chronic kidney disease resolved February 17, 2025 3:15pm Aspiration pneumonia resolved February 17, 2025 3:15pm Coffee ground emesis resolved February 17, 2025 3:15pm Dehydration resolved February 17 3:15pm Orthostatic hypotension resolved [facility] 2024 3:15pm Other acute postprocedural pain reso lved February 17, 2025 3:15pm Urine retention resolved January 3:15pm Chronic renal failure (CRF), stage 3b inactive February 17, 2025 3:15pm Diabetes mellitus, type 2 inactive February 17, 2025 3:15pm Diverticulosis inactive February 17, 2025 3:15pm Enlarged prostate inactive February 172024 3:15pm Hiatal hernia with GERD inactive [facility] 2024 3:15pm Pulmonary embolism inactive January 302024 3:15pm Renal atrophy, right inactive February 17, 2025 3:15pm Tobacco dependence in remission inac tive February 17, 2025 3:15pm KATHERINE (obstructive sleep apnea) delete d February 17, 2025 3:15pm Status post left hip replacement acute March 27, 2025 9:50am [facility] [facility] Work Phone: 1(828) 435-468005-16-2025 Evaluation note* Diagnosis Onset Date Resolution Status Admit Date 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 inactive January 13, 2025 1 0:02am Lumbar spondylosis inactive January 132024 10:02am Trochanteric bursitis, left hip inac tive January 13, 2025 10:02am Status post left hip replacement acute February 14, 2025 1:33pm Acute hypercapnic respirator y failure resolved February 14, 2025 1:33pm Coffee ground emesis resolved February 14, 2025 1:33pm Left lumbar radiculitis inactive [facility] 2024 1:33pm Diabetes deleted February 14 1:33pm Acute blood loss as cause of postoperative anemia acute February 17, 2025 3:15pm DVT of lower limb, acute acute February 17, 2025 3:15pm Erosive esophagitis acute February 17, 2025 3:15pm Morbid obesity acute February 17, 2025 3:15pm Neutrophilic leukocytosis acute February 17, 2025 3:15pm Physical debility acute February 172024 3:15pm Status post left hip replacement acute February 17, 2025 3:15pm Superficial vein thrombosis acute February 17, 2025 3:15pm UTI (urinary tract infection ) due to urinary indwelling Tsang catheter acute February 17, 2025 3:15pm Sleep-disordered breathing chronic February 17, 2025 3:15pm BPH (benign prostatic hyperplasia) suspected February 17, 2025 3:15pm Acute hypercapnic respirator y failure resolved February 17, 2025 3:15pm Acute renal failure superimposed on stage 3 chronic kidney disease resolved February 17, 2025 3:15pm Aspiration pneumonia resolved February 17, 2025 3:15pm Coffee ground emesis resolved February 17, 2025 3:15pm Dehydration resolved February 17 3:15pm Orthostatic hypotension resolved [facility] 2024 3:15pm Other acute postprocedural pain reso lved February 17, 2025 3:15pm Urine retention resolved January 3:15pm Chronic renal failure (CRF), stage 3b inactive February 17, 2025 3:15pm Diabetes mellitus, type 2 inactive February 17, 2025 3:15pm Diverticulosis inactive February 17, 2025 3:15pm Enlarged prostate inactive February 172024 3:15pm Hiatal hernia with GERD inactive [facility] 2024 3:15pm Pulmonary embolism inactive January 302024 3:15pm Renal atrophy, right inactive February 17, 2025 3:15pm Tobacco dependence in remission inac tive February 17, 2025 3:15pm KATHERINE (obstructive sleep apnea) delete d February 17, 2025 3:15pm Status post left hip replacement acute March 27, 2025 9:50am Ulcer of right leg acute March 012024 9:50am Ulcer of right leg acute March 012024 1:55pm [facility] Work Phone: 1(668) 200-938505-16-2025 Evaluation note* Diagnosis Onset Date Resolution Status Admit Date 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 inactive January 13, 2025 1 0:02am Lumbar spondylosis inactive January 132024 10:02am Trochanteric bursitis, left hip inac tive January 13, 2025 10:02am Status post left hip replacement acute February 14, 2025 1:33pm Acute hypercapnic respirator y failure resolved February 14, 2025 1:33pm Coffee ground emesis resolved February 14, 2025 1:33pm Left lumbar radiculitis inactive [facility] 2024 1:33pm Diabetes deleted February 14 1:33pm Acute blood loss as cause of postoperative anemia acute February 17, 2025 3:15pm DVT of lower limb, acute acute February 17, 2025 3:15pm Erosive esophagitis acute February 17, 2025 3:15pm Morbid obesity acute February 17, 2025 3:15pm Neutrophilic leukocytosis acute February 17, 2025 3:15pm Physical debility acute February 172024 3:15pm Status post left hip replacement acute February 17, 2025 3:15pm Superficial vein thrombosis acute February 17, 2025 3:15pm UTI (urinary tract infection ) due to urinary indwelling Tsang catheter acute February 17, 2025 3:15pm Sleep-disordered breathing chronic February 17, 2025 3:15pm BPH (benign prostatic hyperplasia) suspected February 17, 2025 3:15pm Acute hypercapnic respirator y failure resolved February 17, 2025 3:15pm Acute renal failure superimposed on stage 3 chronic kidney disease resolved February 17, 2025 3:15pm Aspiration pneumonia resolved February 17, 2025 3:15pm Coffee ground emesis resolved February 17, 2025 3:15pm Dehydration resolved February 17 3:15pm Orthostatic hypotension resolved [facility] 2024 3:15pm Other acute postprocedural pain reso lved February 17, 2025 3:15pm Urine retention resolved January 3:15pm Chronic renal failure (CRF), stage 3b inactive February 17, 2025 3:15pm Diabetes mellitus, type 2 inactive February 17, 2025 3:15pm Diverticulosis inactive February 17, 2025 3:15pm Enlarged prostate inactive February 172024 3:15pm Hiatal hernia with GERD inactive [facility] 2024 3:15pm Pulmonary embolism inactive January 302024 3:15pm Renal atrophy, right inactive February 17, 2025 3:15pm Tobacco dependence in remission inac tive February 17, 2025 3:15pm KATHERINE (obstructive sleep apnea) delete d February 17, 2025 3:15pm Status post left hip replacement acute March 27, 2025 9:50am Ulcer of right leg acute March 012024 9:50am Ulcer of right leg acute March 012024 1:55pm Bilateral lower extremity edema acut e April 13, 2025 12:28pm DVT of lower limb, acute acute April 13, 2025 12:28pm Superficial vein thrombosis acute April 13, 2025 12:28pm Ulcer of right leg acute April 13, 2025 12:28pm Chronic venous insufficiency chronic April 13, 2025 12:28pm [facility] Work Phone: Discharge summary Author Rasheed Galindo [facility] Note Date/Time February 17, 2025 1:18 pm [facility] Medical Records Department [facility] [place] [address] Transfer to Extended Care MR#: [id number] Acct: [id number] Name: JEREMIAH VILLA Rep #:[id number] : 1945 79 From: Rasheed Galindo DO PCP: PRISCILLA Almanzar Status:ADM I N Certification of patient admission REQUIRED AT TIME OF ADMISSION. I CERTIFY THAT POST-HOSPITAL ECF SERVICES ARE REQUIRED TO BE GIVEN ON AN IN-PATIENT BASIS BECAUSE OF THE ABOVE NAMED PATIENT'S NEED FOR LONG-TERM CARE ON A CONTINUING BASIS FOR THE CONDITION(S) FOR WHICH HE/SHE WAS RECEIVING IN-PATIENT HOSPITAL SERVICES PRIOR TO HIS/HER TRANSFER TO THE ECF. 02/16/25 0652<Electronically signed by Rasheed Galindo DO> Diet Diet Order/Speech Therapy: INPATIENT Hospital Diet / Speech Therapy Order(s) 02/15/25 14:43 Diet: Carbohydrate Controlled Diet Comments: Meds whole in applesauce 1 at a time, distant sup DC O2, CPAP, BIPAP needs Home O2 Discharge instructions: No Wound(s) LEFT LOWER ABDOMEN: Wound Type: Surgical Incision LEFT HIP, LATERAL: Wound Type: Surgical Incision Therapies Weight Bearing: Full weight bearing Extremity Affected:: Bilateral Lower Problem/Diagnosis (1) Left lumbar radiculitis: Status: Acute Code(s): M54.16 - Radiculopathy, lumbar region (2) Status post left hip replacement: Status: Acute Code(s): Z96.642 - Presence of left artificial hip joint (3) Acute hypercapnic respiratory failure: Status: Acute Code(s): J96.02 - Acute respiratory failure with hypercapnia (4) Coffee ground emesis: Status: Acute Code(s): K92.0 - Hematemesis Plan Postop day #2 left total hip arthroplasty PT OT weightbearing as tolerated Patient is not moving around very well yet will likely require rehab waiting on bed for Thursday Patient is haves having significant left lower extremity radiculitis he does have known lumbar spondylosis. I will start him on gabapentin 300 mg he will be titrated up over the next 3 days. Awaiting discharge to rehab tomorrow He has resumed his Eliquis and he needs to continue this for 35 days postoperatively with his history of DVT PE. He will need to follow-up in the office 2 weeks if he is still at [facility] rehab i can see him there (please notify me) Allergies/Procedures Done in Hospital Allergies No Known Allergies Allergy (Verified 02/14/25 10:16) Type of Care/Length of Stay Estimated LOS: Convalescent Care Less Than 30 days Type of Care Needed: Skilled Rehab Potential: Good Prognosis: Good Additional Orders/Day of Discharge Day of Discharge: 02/17/25 Dietary and Speech Recommendations Dietitian Recommendations/Changes: Recommend CCD diet when medically able to manage blood sugars. Recommend 237mL Ensure Surgery BID when diet advances >clear liquid diet. Follow Up Care Please Follow Up With: Rasheed Galindo DO Discharge Plan Admission Admit Date/Time: 02/14/25 13:33 Primary Reason for Your Visit: Left total hip arthroplasty Attending Provider: Rasheed Galindo Primary Care Provider: Kerwin Hugo Consulting Providers: Shraddha Gamez; Yomi Dempsey Discharge Orders/Prescriptions Prescriptions: New acetaminophen 500 mg tablet 1,000 mg PO Q6H Qty: 100 0RF Eliquis 2.5 mg tablet 2.5 mg PO BID Qty: 66 0RF oxycodone 5 mg tablet 5 - 10 mg PO Q4H PRN (Reason: pain) 7 Days Qty: 60 0RF gabapentin 300 mg capsule 300 mg PO TID Qty: 90 0RF Continued glipizide 5 mg tablet 5 mg PO BID lisinopril 5 mg tablet 5 mg PO BID vitamin K2 100 mcg capsule 100 mcg PO DAILY cholecalciferol (vitamin D3) [Vitamin D3] 25 mcg (1,000 unit) tablet 25 mcg PO DAILY Prostate Health 160-100-100 mg-unit-mcg tablet 2 tab PO TID C Complex 1,000 mg tablet extended release 2,000 mg PO DAILY magnesium 250 mg tablet 750 mg PO DAILY Referrals / Follow Up: Tess Hernandez MD [Non-Staff] - Disposition Disposition (needs filled in before D/C Order can be placed): Inpatient Rehab Unit/Facility 02/16/25 0652 <Electronically signed by Rasheed Galindo DO> Cosigner Signature (if applicable): CC: Dr. Yomi Dempsey DO; Dr. Shraddha Gamez MD; PRISCILLA Almanzar ~ ADDENDUM by Dr. Shraddha Gamez MD on 02/17/25 at 1318 Addendum INTERNAL MEDICINE RECOMMENDATIONS ON DISCHARGE: -Recommend patient be discharged on Protonix 40 mg twice daily especially while on Eliquis given his reflux esophagitis -Kidney function has improved further, per patient baseline around 1.3, would benefit from a BMP 2 to 3 days to reassess, would recommend continue to hold lisinopril -May benefit from continuing sliding scale insulin in the short-term until kidney function is back to baseline (per patient 1.3) given glipizide is renallyexcreted -Recommending to continue to hold lisinopril given kidney function -Tsang removed but then had to be replaced due to urinary retention, patient hashad some constipation, bowel regimen, tamsulosin started, UA with some leuk esterase but minimal white blood cells and very rare bacteria, lower suspicion for UTI so holding off on empiric antibiotics at this time, urine culture was sent 02/17/25 4081 <Electronically signed by Shraddha Gamez MD> cc: Dr. oYmi Dempsey, DO; Dr. Shraddha Gamez MD; PRISCILLA Almanzar ~* Signed [facility] Work Phone: Evaluation noteNo assessment information available [facility] Work Phone: Hospital Discharge instructionsAdditional Instructions 1. You have a urinary tract infection. We sent a culture but, the results will not be back for 24-48 hours after you leave rehab. I am discharging you on an antibiotic called Cefadroxil which you will take twice a day. If the culture shows a bacteria that is resistant to this antibiotic then we will need to change the antibiotic. I will call Rahul IF we need to change the antibiotic. 2. You have a blood clot in the calf of the left leg. Generally these do not cause pulmonary emboli (PE) of any significance because the veins distal to the knee are small. We are going to keep you on the prophylactic dose of Eliquis (a blood thinner) for now. There is a chance that the clot will propagate and get bigger and extend into the thigh ans this would mean you would need a higher dose of the Eliquis. I am giving you a requisition to have another venous ultra sound of the legs in 1 week. You should call me OR Dr. Hugo 1 day after the test to go over the results with you and make a decision about whether or not the dose of the Eliquis needs to be increased from 2.5 mg to 5 mg. If you have chest pain, shortness of breath, racing heart, dizziness, increasing calf or thigh pain or if you pass put then call 911 and get to an emergency room because these are symptoms of a blood clot to the lung and this can be fatal. 3. Your oxygen drops at night when you are sleeping. You may have sleep apnea. When the oxygen drops you can have problems with the rhythm of the heart. If you decide you would like to be evaluated for sleep apnea you will need a overnight sleep study. You have been refusing to wear the oxygen at night while on rehab so I am not sending you home with a prescription for oxygen because you would have to pay for it and it is expensive, claire if you are not going to wear it. I have give you some literature to read about sleep apnea and all the things it can cause in addition to problems with the rhythm of the heart. 4. You have chronic kidney disease. The CT scan of the abdomen showed the R kidney is severely atrophic......it likely is not very functional. Glipizide is excreted through the kidney and in people with chronic kidney disease this drug can accumulate due to to poor excretion from the kidneys and lead to low blood sugars. We have changed this medication to Amaryl (glimepiride) which is a diabetic drug that is excreted through the liver. This is a safer drug for you. While you were in the hospital you had acute on chronic kidney failure and your creatinine (a test of kidney function) went up to 2.2. This has resolved and your creatinine has been stable at 1.34 - 1.47 the last week on rehab. This is consistent with stage III (moderate) chronic renal failure. You may need to follow up with a dough mixer operator (kidney doctor) in the future. Make sure to maintain good hydration. 5. The CT scan of the abdomen also showed your prostate is enlarged. You had urine retention in the hospital and had to have a catheter inserted to drain the bladder. We started you on a drug for the prostate called Flomax (also called tamsulosin) and we were able to get the catheter out. I recommend you continue to take this drug. 6. You are mildly anemic due to blood loss related to surgery. The blood count is stable at discharge from rehab. Your HGB (hemoglobin) is 10.4 at discharge. It was 15.8 prior to surgery. 7. You have many medical problems Jeremiah. You should be seeing your PCP at least every 3 months. 8. If you have any questions after leaving rehab please do not hesitate to call me. OFFICE: [phone] CELL: [phone] NURSES STATION ON REHAB: [phone] Date of Discharge: 02/28/25[facility] Work Phone: Hospital Discharge instructionsAmbulatory Orders* Wound Care Location: None Selected [facility] Work Phone: Reason for referral (narrative)No reason for referral information availableHe[facility] Work Phone: Summary Purpose Family History No Family History Records Found Bleeding disorder Status:Active Comments:Negat richi Family History Of. Cancer Status:Active Comments:Negativ e Family History Of. Cerebrovascular Accident Status:Active Comment s:Negative Family History Of. Coronary Artery Disease Status:Active Comments :Negative Family History Of. Diabetes Mellitus Type II Status:Active Commen ts:Negative Family History Of. Hypertension Status:Active Comments:Negativ e Family History Of. Osteoarthritis Status:Active Comments:Negativ e Family History Of. Bleeding disorder Status:Active Comments:Negat richi Family History Of. Cancer Status:Active Comments:Negativ e Family History Of. Cerebrovascular Accident Status:Active Comment s:Negative Family History Of. Coronary Artery Disease Status:Active Comments :Negative Family History Of. Diabetes Mellitus Type II Status:Active Commen ts:Negative Family History Of. Hypertension Status:Active Comments:Negativ e Family History Of. Osteoarthritis Status:Active Comments:Negativ e Family History Of. Bleeding disorder Status:Active Comments:Negat richi Family History Of. Cancer Status:Active Comments:Negativ e Family History Of. Cerebrovascular Accident Status:Active Comment s:Negative Family History Of. Coronary Artery Disease Status:Active Comments :Negative Family History Of. Diabetes Mellitus Type II Status:Active Commen ts:Negative Family History Of. Hypertension Status:Active Comments:Negativ e Family History Of. Osteoarthritis Status:Active Comments:Negativ e Family History Of. Bleeding disorder Status:Active Comments:Negat richi Family History Of. Cancer Status:Active Comments:Negativ e Family History Of. Cerebrovascular Accident Status:Active Comment s:Negative Family History Of. Coronary Artery Disease Status:Active Comments :Negative Family History Of. Diabetes Mellitus Type II Status:Active Commen ts:Negative Family History Of. Hypertension Status:Active Comments:Negativ e Family History Of. Osteoarthritis Status:Active Comments:Negativ e Family History Of. Bleeding disorder Status:Active Comments:Negat richi Family History Of. Cancer Status:Active Comments:Negativ e Family History Of. Cerebrovascular Accident Status:Active Comment s:Negative Family History Of. Coronary Artery Disease Status:Active Comments :Negative Family History Of. Diabetes Mellitus Type II Status:Active Commen ts:Negative Family History Of. Hypertension Status:Active Comments:Negativ e Family History Of. Osteoarthritis Status:Active Comments:Negativ e Family History Of. Bleeding disorder Status:Active Comments:Negat richi Family History Of. Cancer Status:Active Comments:Negativ e Family History Of. Cerebrovascular Accident Status:Active Comment s:Negative Family History Of. Coronary Artery Disease Status:Active Comments :Negative Family History Of. Diabetes Mellitus Type II Status:Active Commen ts:Negative Family History Of. Hypertension Status:Active Comments:Negativ e Family History Of. Osteoarthritis Status:Active Comments:Negativ e Family History Of. Bleeding disorder Status:Active Comments:Negat richi Family History Of. Cancer Status:Active Comments:Negativ e Family History Of. Cerebrovascular Accident Status:Active Comment s:Negative Family History Of. Coronary Artery Disease Status:Active Comments :Negative Family History Of. Diabetes Mellitus Type II Status:Active Commen ts:Negative Family History Of. Hypertension Status:Active Comments:Negativ e Family History Of. Osteoarthritis Status:Active Comments:Negativ e Family History Of. Bleeding disorder Status:Active Comments:Negat richi Family History Of. Cancer Status:Active Comments:Negativ e Family History Of. Cerebrovascular Accident Status:Active Comment s:Negative Family History Of. Coronary Artery Disease Status:Active Comments :Negative Family History Of. Diabetes Mellitus Type II Status:Active Commen ts:Negative Family History Of. Hypertension Status:Active Comments:Negativ e Family History Of. Osteoarthritis Status:Active Comments:Negativ e Family History Of. Relationship Condition Age at Onset Recorded Date/T alaina son Venous thromboembolism (VTE) Unknown Bleeding disorder Status:Active Comments:Negat richi Family History Of. Cancer Status:Active Comments:Negativ e Family History Of. Cerebrovascular Accident Status:Active Comment s:Negative Family History Of. Coronary Artery Disease Status:Active Comments :Negative Family History Of. Diabetes Mellitus Type II Status:Active Commen ts:Negative Family History Of. Hypertension Status:Active Comments:Negativ e Family History Of. Osteoarthritis Status:Active Comments:Negativ e Family History Of. Bleeding disorder Status:Active Comments:Negat richi Family History Of. Cancer Status:Active Comments:Negativ e Family History Of. Cerebrovascular Accident Status:Active Comment s:Negative Family History Of. Coronary Artery Disease Status:Active Comments :Negative Family History Of. Diabetes Mellitus Type II Status:Active Commen ts:Negative Family History Of. Hypertension Status:Active Comments:Negativ e Family History Of. Osteoarthritis Status:Active Comments:Negativ e Family History Of. Bleeding disorder Status:Active Comments:Negat richi Family History Of. Cancer Status:Active Comments:Negativ e Family History Of. Cerebrovascular Accident Status:Active Comment s:Negative Family History Of. Coronary Artery Disease Status:Active Comments :Negative Family History Of. Diabetes Mellitus Type II Status:Active Commen ts:Negative Family History Of. Hypertension Status:Active Comments:Negativ e Family History Of. Osteoarthritis Status:Active Comments:Negativ e Family History Of. Bleeding disorder Status:Active Comments:Negat richi Family History Of. Cancer Status:Active Comments:Negativ e Family History Of. Cerebrovascular Accident Status:Active Comment s:Negative Family History Of. Coronary Artery Disease Status:Active Comments :Negative Family History Of. Diabetes Mellitus Type II Status:Active Commen ts:Negative Family History Of. Hypertension Status:Active Comments:Negativ e Family History Of. Osteoarthritis Status:Active Comments:Negativ e Family History Of. Bleeding disorder Status:Active Comments:Negat richi Family History Of. Cancer Status:Active Comments:Negativ e Family History Of. Cerebrovascular Accident Status:Active Comment s:Negative Family History Of. Coronary Artery Disease Status:Active Comments :Negative Family History Of. Diabetes Mellitus Type II Status:Active Commen ts:Negative Family History Of. Hypertension Status:Active Comments:Negativ e Family History Of. Osteoarthritis Status:Active Comments:Negativ e Family History Of. Bleeding disorder Status:Active Comments:Negat richi Family History Of. Cancer Status:Active Comments:Negativ e Family History Of. Cerebrovascular Accident Status:Active Comment s:Negative Family History Of. Coronary Artery Disease Status:Active Comments :Negative Family History Of. Diabetes Mellitus Type II Status:Active Commen ts:Negative Family History Of. Hypertension Status:Active Comments:Negativ e Family History Of. Osteoarthritis Status:Active Comments:Negativ e Family History Of. Bleeding disorder Status:Active Comments:Negat richi Family History Of. Cancer Status:Active Comments:Negativ e Family History Of. Cerebrovascular Accident Status:Active Comment s:Negative Family History Of. Coronary Artery Disease Status:Active Comments :Negative Family History Of. Diabetes Mellitus Type II Status:Active Commen ts:Negative Family History Of. Hypertension Status:Active Comments:Negativ e Family History Of. Osteoarthritis Status:Active Comments:Negativ e Family History Of. Bleeding disorder Status:Active Comments:Negat richi Family History Of. Cancer Status:Active Comments:Negativ e Family History Of. Cerebrovascular Accident Status:Active Comment s:Negative Family History Of. Coronary Artery Disease Status:Active Comments :Negative Family History Of. Diabetes Mellitus Type II Status:Active Commen ts:Negative Family History Of. Hypertension Status:Active Comments:Negativ e Family History Of. Osteoarthritis Status:Active Comments:Negativ e Family History Of. Bleeding disorder Status:Active Comments:Negat richi Family History Of. Cancer Status:Active Comments:Negativ e Family History Of. Cerebrovascular Accident Status:Active Comment s:Negative Family History Of. Coronary Artery Disease Status:Active Comments :Negative Family History Of. Diabetes Mellitus Type II Status:Active Commen ts:Negative Family History Of. Hypertension Status:Active Comments:Negativ e Family History Of. Osteoarthritis Status:Active Comments:Negativ e Family History Of. Bleeding disorder Status:Active Comments:Negat richi Family History Of. Cancer Status:Active Comments:Negativ e Family History Of. Cerebrovascular Accident Status:Active Comment s:Negative Family History Of. Coronary Artery Disease Status:Active Comments :Negative Family History Of. Diabetes Mellitus Type II Status:Active Commen ts:Negative Family History Of. Hypertension Status:Active Comments:Negativ e Family History Of. Osteoarthritis Status:Active Comments:Negativ e Family History Of. Bleeding disorder Status:Active Comments:Negat richi Family History Of. Cancer Status:Active Comments:Negativ e Family History Of. Cerebrovascular Accident Status:Active Comment s:Negative Family History Of. Coronary Artery Disease Status:Active Comments :Negative Family History Of. Diabetes Mellitus Type II Status:Active Commen ts:Negative Family History Of. Hypertension Status:Active Comments:Negativ e Family History Of. Osteoarthritis Status:Active Comments:Negativ e Family History Of. Bleeding disorder Status:Active Comments:Negat richi Family History Of. Cancer Status:Active Comments:Negativ e Family History Of. Cerebrovascular Accident Status:Active Comment s:Negative Family History Of. Coronary Artery Disease Status:Active Comments :Negative Family History Of. Diabetes Mellitus Type II Status:Active Commen ts:Negative Family History Of. Hypertension Status:Active Comments:Negativ e Family History Of. Osteoarthritis Status:Active Comments:Negativ e Family History Of. Bleeding disorder Status:Active Comments:Negat richi Family History Of. Cancer Status:Active Comments:Negativ e Family History Of. Cerebrovascular Accident Status:Active Comment s:Negative Family History Of. Coronary Artery Disease Status:Active Comments :Negative Family History Of. Diabetes Mellitus Type II Status:Active Commen ts:Negative Family History Of. Hypertension Status:Active Comments:Negativ e Family History Of. Osteoarthritis Status:Active Comments:Negativ e Family History Of. Advance Directives No Advanced Directives Records Found Advance Directive Response Recorded Date/ Time Do you have a Healthcare Power of Form [employer] Forms? Yes February 14, 2025 4:46pm Advance Directive Response Recorded Date/ Time Do you have a Healthcare Pow er of Form Setter [employer] Forms? Yes February 21, 2025 11:13am Name of Medical Power of Form [employer] Forms alec Baez February 21, 2025 11:13am Do you have a Healthcare Pow er of Form Setter [employer] Forms? Yes February 14, 2025 4:46pm Chief Complaint and Reason for Visit Chief Complaint Admit Date LEFT HIP January 13, 2025 10:02 am 2 January 13, 2025 10:36 am Chief Complaint Admit Date LEFT HIP January 13, 2025 10:02 am 2 January 13, 2025 10:36 am TEMPLATING FOR LEFT JAMES February 03, 2025 1 2:03pm Reason for Visit Admit Date Degenerative joint disease of left hip [facility] 2024 10:02am Lumbar spondylosis January 13, 2025 10:02 am Trochanteric bursitis, left hip December 10:02am Chief Complaint Admit Date LEFT HIP January 13, 2025 10:02 am RM 2 January 13, 2025 10:36 am TEMPLATING FOR LEFT JAMES February 03, 2025 1 2:03pm ERAS, Left Total Hip Replacement Robotic Arm [place] February 14, 2025 1:33pm ERAS, Left Total Hip Replacement Robotic Arm [place] February 14, 2025 1:34pm ERAS, Left Total Hip Replacement Robotic Arm [place] February 14, 2025 3:09pm ERAS, Left Total Hip Replacement Robotic Arm [place] February 15, 2025 7:43am ERAS, Left Total Hip Replacement Robotic Arm [place] February 15, 2025 12:16pm ERAS, Left Total Hip Replacement Robotic Arm [place] February 15, 2025 3:50pm ERAS, Left Total Hip Replacement Robotic Arm [place] February 16, 2025 6:39am ERAS, Left Total Hip Replacement Robotic Arm [place] February 16, 2025 7:55am ERAS, Left Total Hip Replacement Robotic Arm [place] February 17, 2025 12:05pm ERAS, Left Total Hip Replacement Robotic Arm [place] February 17, 2025 12:24pm Reason for Visit Admit Date Degenerative joint disease of left hip M ay 2024 10:02am Lumbar spondylosis January 13, 2025 10:02 am Trochanteric bursitis, left hip December 10:02am Acute hypercapnic respiratory failure Ju ne 2024 1:33pm Coffee ground emesis February 14, 2025 1:3 3pm Diabetes February 14, 2025 1:33 pm Left lumbar radiculitis February 14, 2025 1:33pm Status post left hip replacement February 142024 1:33pm Chief Complaint Admit Date LEFT HIP January 13, 2025 10:02 am RM 2 January 13, 2025 10:36 am TEMPLATING FOR LEFT JAMES February 03, 2025 1 2:03pm ERAS, Left Total Hip Replacement Robotic Arm [place] February 14, 2025 1:33pm ERAS, Left Total Hip Replacement Robotic Arm [place] February 14, 2025 1:34pm ERAS, Left Total Hip Replacement Robotic Arm [place] February 14, 2025 3:09pm ERAS, Left Total Hip Replacement Robotic Arm [place] February 15, 2025 7:43am ERAS, Left Total Hip Replacement Robotic Arm [place] February 15, 2025 12:16pm ERAS, Left Total Hip Replacement Robotic Arm [place] February 15, 2025 3:50pm ERAS, Left Total Hip Replacement Robotic Arm [place] February 16, 2025 6:39am ERAS, Left Total Hip Replacement Robotic Arm [place] February 16, 2025 7:55am ERAS, Left Total Hip Replacement Robotic Arm [place] February 17, 2025 12:05pm ERAS, Left Total Hip Replacement Robotic Arm [place] February 17, 2025 12:24pm LEFT HIP FRACTURE February 17, 2025 3:15 pm LEFT HIP FRACTURE February 20, 2025 9:56 am LEFT HIP FRACTURE February 21, 2025 10:2 9am LEFT HIP FRACTURE February 23, 2025 9:25 am LEFT HIP FRACTURE February 24, 2025 9:55 am ERAS, Left Total Hip Replacement Robotic Arm [place] February 27, 2025 9:17am LEFT HIP FRACTURE February 27, 2025 9:36 am LEFT HIP FRACTURE February 28, 2025 7:44a m LEFT HIP FRACTURE February 28, 2025 2:01p m Reason for Visit Admit Date Degenerative joint disease of left hip M 2024 10:02am Lumbar spondylosis January 13, 2025 10:02 am Trochanteric bursitis, left hip December 10:02am Status post left hip replacement February 142024 1:33pm Acute hypercapnic respiratory failure Ju ne 2024 1:33pm Coffee ground emesis February 14, 2025 1:3 3pm Left lumbar radiculitis February 14, 2025 1:33pm Diabetes February 14, 2025 1:33 pm Acute blood loss as cause of postoperati ve anemia February 17, 2025 3:15pm Aspiration pneumonia February 17, 2025 3:1 5pm DVT of lower limb, acute February 17, 2025 3:15pm Enlarged prostate February 17, 2025 3:15 pm Erosive esophagitis February 17, 2025 3:15 pm Hiatal hernia with GERD February 17, 2025 3:15pm Morbid obesity February 17, 2025 3:15 pm Neutrophilic leukocytosis February 17 3:15pm Other acute postprocedural pain January 3:15pm Physical debility February 17, 2025 3:15 pm Pulmonary embolism February 17, 2025 3:15 pm Status post left hip replacement February 172024 3:15pm Superficial vein thrombosis February 17, 2 025 3:15pm Urine retention February 17, 2025 3:15 pm UTI (urinary tract infection ) due to urinary indwelling Tsnag catheter February 17, 2025 3:15pm Chronic renal failure (CRF), stage 3b [facility] 2024 3:15pm Diabetes mellitus, type 2 February 17 3:15pm Diverticulosis February 17, 2025 3:15 pm Renal atrophy, right February 17, 2025 3:1 5pm Sleep-disordered breathing February 17 3:15pm Tobacco dependence in remission January 3:15pm BPH (benign prostatic hyperplasia) February 17, 2025 3:15pm Acute hypercapnic respiratory failure [facility] 2024 3:15pm Acute renal failure superimp osed on stage 3 chronic kidney disease February 17, 2025 3:15pm Coffee ground emesis February 17, 2025 3:1 5pm Dehydration February 17, 2025 3:15 pm Orthostatic hypotension February 17, 2025 3:15pm KATHERINE (obstructive sleep apnea) February 17, 2025 3:15pm Chief Complaint Admit Date LEFT HIP January 13, 2025 10:02 am RM 2 January 13, 2025 10:36 am TEMPLATING FOR LEFT JAMES February 03, 2025 1 2:03pm ERAS, Left Total Hip Replacement Robotic Arm [place] February 14, 2025 1:33pm ERAS, Left Total Hip Replacement Robotic Arm [place] February 14, 2025 1:34pm ERAS, Left Total Hip Replacement Robotic Arm [place] February 14, 2025 3:09pm ERAS, Left Total Hip Replacement Robotic Arm [place] February 15, 2025 7:43am ERAS, Left Total Hip Replacement Robotic Arm [place] February 15, 2025 12:16pm ERAS, Left Total Hip Replacement Robotic Arm [place] February 15, 2025 3:50pm ERAS, Left Total Hip Replacement Robotic Arm [place] February 16, 2025 6:39am ERAS, Left Total Hip Replacement Robotic Arm [place] February 16, 2025 7:55am ERAS, Left Total Hip Replacement Robotic Arm [place] February 17, 2025 12:05pm ERAS, Left Total Hip Replacement Robotic Arm [place] February 17, 2025 12:24pm LEFT HIP FRACTURE February 17, 2025 3:15 pm LEFT HIP FRACTURE February 20, 2025 9:56 am LEFT HIP FRACTURE February 21, 2025 10:2 9am LEFT HIP FRACTURE February 23, 2025 9:25 am LEFT HIP FRACTURE February 24, 2025 9:55 am ERAS, Left Total Hip Replacement Robotic Arm [place] February 27, 2025 9:17am LEFT HIP FRACTURE February 27, 2025 9:36 am LEFT HIP FRACTURE February 28, 2025 7:44a m LEFT HIP FRACTURE February 28, 2025 2:01p m DVT March 21, 2025 9:58 am Reason for Visit Admit Date Degenerative joint disease of left hip M ay 2024 10:02am Lumbar spondylosis January 13, 2025 10:02 am Trochanteric bursitis, left hip December 10:02am Status post left hip replacement February 142024 1:33pm Acute hypercapnic respiratory failure Ju ne 2024 1:33pm Coffee ground emesis February 14, 2025 1:3 3pm Left lumbar radiculitis February 14, 2025 1:33pm Diabetes February 14, 2025 1:33 pm Acute blood loss as cause of postoperati ve anemia February 17, 2025 3:15pm DVT of lower limb, acute February 17, 2025 3:15pm Erosive esophagitis February 17, 2025 3:15 pm Morbid obesity February 17, 2025 3:15 pm Neutrophilic leukocytosis February 17 3:15pm Physical debility February 17, 2025 3:15 pm Status post left hip replacement February 172024 3:15pm Superficial vein thrombosis February 17, 2 025 3:15pm UTI (urinary tract infection ) due to urinary indwelling Tsang catheter February 17, 2025 3:15pm Sleep-disordered breathing February 17 3:15pm BPH (benign prostatic hyperplasia) February 17, 2025 3:15pm Acute hypercapnic respiratory failure Ju ne 2024 3:15pm Acute renal failure superimp osed on stage 3 chronic kidney disease February 17, 2025 3:15pm Aspiration pneumonia February 17, 2025 3:1 5pm Coffee ground emesis February 17, 2025 3:1 5pm Dehydration February 17, 2025 3:15 pm Orthostatic hypotension February 17, 2025 3:15pm Other acute postprocedural pain January 3:15pm Urine retention February 17, 2025 3:15 pm Chronic renal failure (CRF), stage 3b Ju ga 2024 3:15pm Diabetes mellitus, type 2 February 17 3:15pm Diverticulosis February 17, 2025 3:15 pm Enlarged prostate February 17, 2025 3:15 pm Hiatal hernia with GERD February 17, 2025 3:15pm Pulmonary embolism February 17, 2025 3:15 pm Renal atrophy, right February 17, 2025 3:1 5pm Tobacco dependence in remission January 3:15pm KATHERINE (obstructive sleep apnea) February 17, 2025 3:15pm Chief Complaint Admit Date LEFT HIP January 13, 2025 10:02 am RM 2 January 13, 2025 10:36 am TEMPLATING FOR LEFT JAMES February 03, 2025 1 2:03pm ERAS, Left Total Hip Replacement Robotic Arm [place] February 14, 2025 1:33pm ERAS, Left Total Hip Replacement Robotic Arm [place] February 14, 2025 1:34pm ERAS, Left Total Hip Replacement Robotic Arm [place] February 14, 2025 3:09pm ERAS, Left Total Hip Replacement Robotic Arm [place] February 15, 2025 7:43am ERAS, Left Total Hip Replacement Robotic Arm [place] February 15, 2025 12:16pm ERAS, Left Total Hip Replacement Robotic Arm [place] February 15, 2025 3:50pm ERAS, Left Total Hip Replacement Robotic Arm [place] February 16, 2025 6:39am ERAS, Left Total Hip Replacement Robotic Arm [place] February 16, 2025 7:55am ERAS, Left Total Hip Replacement Robotic Arm [place] February 17, 2025 12:05pm ERAS, Left Total Hip Replacement Robotic Arm [place] February 17, 2025 12:24pm LEFT HIP FRACTURE February 17, 2025 3:15 pm LEFT HIP FRACTURE February 20, 2025 9:56 am LEFT HIP FRACTURE February 21, 2025 10:2 9am LEFT HIP FRACTURE February 23, 2025 9:25 am LEFT HIP FRACTURE February 24, 2025 9:55 am ERAS, Left Total Hip Replacement Robotic Arm [place] February 27, 2025 9:17am LEFT HIP FRACTURE February 27, 2025 9:36 am LEFT HIP FRACTURE February 28, 2025 7:44a m LEFT HIP FRACTURE February 28, 2025 2:01p m DVT March 21, 2025 9:58 am left hip March 27, 2025 9:50 am Room 1 March 27, 2025 10:0 5am Reason for Visit Admit Date Degenerative joint disease of left hip M ay 2024 10:02am Lumbar spondylosis January 13, 2025 10:02 am Trochanteric bursitis, left hip December 10:02am Status post left hip replacement February 142024 1:33pm Acute hypercapnic respiratory failure Ju ga 2024 1:33pm Coffee ground emesis February 14, 2025 1:3 3pm Left lumbar radiculitis February 14, 2025 1:33pm Diabetes February 14, 2025 1:33 pm Acute blood loss as cause of postoperati ve anemia February 17, 2025 3:15pm DVT of lower limb, acute February 17, 2025 3:15pm Erosive esophagitis February 17, 2025 3:15 pm Morbid obesity February 17, 2025 3:15 pm Neutrophilic leukocytosis February 17 3:15pm Physical debility February 17, 2025 3:15 pm Status post left hip replacement February 172024 3:15pm Superficial vein thrombosis February 17, 2 025 3:15pm UTI (urinary tract infection ) due to urinary indwelling Tsang catheter February 17, 2025 3:15pm Sleep-disordered breathing February 17 3:15pm BPH (benign prostatic hyperplasia) February 17, 2025 3:15pm Acute hypercapnic respiratory failure Ju ne 2024 3:15pm Acute renal failure superimp osed on stage 3 chronic kidney disease February 17, 2025 3:15pm Aspiration pneumonia February 17, 2025 3:1 5pm Coffee ground emesis February 17, 2025 3:1 5pm Dehydration February 17, 2025 3:15 pm Orthostatic hypotension February 17, 2025 3:15pm Other acute postprocedural pain January 3:15pm Urine retention February 17, 2025 3:15 pm Chronic renal failure (CRF), stage 3b Ju 2024 3:15pm Diabetes mellitus, type 2 February 17 3:15pm Diverticulosis February 17, 2025 3:15 pm Enlarged prostate February 17, 2025 3:15 pm Hiatal hernia with GERD February 17, 2025 3:15pm Pulmonary embolism February 17, 2025 3:15 pm Renal atrophy, right February 17, 2025 3:1 5pm Tobacco dependence in remission January 3:15pm KATHERINE (obstructive sleep apnea) February 17, 2025 3:15pm Status post left hip replacement March 272024 9:50am Chief Complaint Admit Date LEFT HIP January 13, 2025 10:02 am RM 2 January 13, 2025 10:36 am TEMPLATING FOR LEFT JAMES February 03, 2025 1 2:03pm ERAS, Left Total Hip Replacement Robotic Arm [place] February 14, 2025 1:33pm ERAS, Left Total Hip Replacement Robotic Arm [place] February 14, 2025 1:34pm ERAS, Left Total Hip Replacement Robotic Arm [place] February 14, 2025 3:09pm ERAS, Left Total Hip Replacement Robotic Arm [place] February 15, 2025 7:43am ERAS, Left Total Hip Replacement Robotic Arm [place] February 15, 2025 12:16pm ERAS, Left Total Hip Replacement Robotic Arm [place] February 15, 2025 3:50pm ERAS, Left Total Hip Replacement Robotic Arm [place] February 16, 2025 6:39am ERAS, Left Total Hip Replacement Robotic Arm [place] February 16, 2025 7:55am ERAS, Left Total Hip Replacement Robotic Arm [place] February 17, 2025 12:05pm ERAS, Left Total Hip Replacement Robotic Arm [place] February 17, 2025 12:24pm LEFT HIP FRACTURE February 17, 2025 3:15 pm LEFT HIP FRACTURE February 20, 2025 9:56 am LEFT HIP FRACTURE February 21, 2025 10:2 9am LEFT HIP FRACTURE February 23, 2025 9:25 am LEFT HIP FRACTURE February 24, 2025 9:55 am ERAS, Left Total Hip Replacement Robotic Arm [place] February 27, 2025 9:17am LEFT HIP FRACTURE February 27, 2025 9:36 am LEFT HIP FRACTURE February 28, 2025 7:44a m LEFT HIP FRACTURE February 28, 2025 2:01p m DVT March 21, 2025 9:58 am left hip March 27, 2025 9:50 am Room 1 March 27, 2025 10:0 5am wound March 27, 2025 1:55 pm wound March 27, 2025 3:42 pm Reason for Visit Admit Date Degenerative joint disease of left hip M ay 2024 10:02am Lumbar spondylosis January 13, 2025 10:02 am Trochanteric bursitis, left hip December 10:02am Status post left hip replacement February 142024 1:33pm Acute hypercapnic respiratory failure Ju ne 2024 1:33pm Coffee ground emesis February 14, 2025 1:3 3pm Left lumbar radiculitis February 14, 2025 1:33pm Diabetes February 14, 2025 1:33 pm Acute blood loss as cause of postoperati ve anemia February 17, 2025 3:15pm DVT of lower limb, acute February 17, 2025 3:15pm Erosive esophagitis February 17, 2025 3:15 pm Morbid obesity February 17, 2025 3:15 pm Neutrophilic leukocytosis February 17 3:15pm Physical debility February 17, 2025 3:15 pm Status post left hip replacement February 172024 3:15pm Superficial vein thrombosis February 17, 2 025 3:15pm UTI (urinary tract infection ) due to urinary indwelling Tsang catheter February 17, 2025 3:15pm Sleep-disordered breathing February 17 3:15pm BPH (benign prostatic hyperplasia) February 17, 2025 3:15pm Acute hypercapnic respiratory failure Ju ne 2024 3:15pm Acute renal failure superimp osed on stage 3 chronic kidney disease February 17, 2025 3:15pm Aspiration pneumonia February 17, 2025 3:1 5pm Coffee ground emesis February 17, 2025 3:1 5pm Dehydration February 17, 2025 3:15 pm Orthostatic hypotension February 17, 2025 3:15pm Other acute postprocedural pain January 3:15pm Urine retention February 17, 2025 3:15 pm Chronic renal failure (CRF), stage 3b Ju 2024 3:15pm Diabetes mellitus, type 2 February 17 3:15pm Diverticulosis February 17, 2025 3:15 pm Enlarged prostate February 17, 2025 3:15 pm Hiatal hernia with GERD February 17, 2025 3:15pm Pulmonary embolism February 17, 2025 3:15 pm Renal atrophy, right February 17, 2025 3:1 5pm Tobacco dependence in remission January 3:15pm KATHERINE (obstructive sleep apnea) February 17, 2025 3:15pm Status post left hip replacement March 272024 9:50am Ulcer of right leg March 27, 2025 9:50 am Ulcer of right leg March 27, 2025 1:55 pm Chief Complaint Admit Date LEFT HIP January 13, 2025 10:02 am RM 2 January 13, 2025 10:36 am TEMPLATING FOR LEFT JAMES February 03, 2025 1 2:03pm ERAS, Left Total Hip Replacement Robotic Arm [place] February 14, 2025 1:33pm ERAS, Left Total Hip Replacement Robotic Arm [place] February 14, 2025 1:34pm ERAS, Left Total Hip Replacement Robotic Arm [place] February 14, 2025 3:09pm ERAS, Left Total Hip Replacement Robotic Arm [place] February 15, 2025 7:43am ERAS, Left Total Hip Replacement Robotic Arm [place] February 15, 2025 12:16pm ERAS, Left Total Hip Replacement Robotic Arm [place] February 15, 2025 3:50pm ERAS, Left Total Hip Replacement Robotic Arm [place] February 16, 2025 6:39am ERAS, Left Total Hip Replacement Robotic Arm [place] February 16, 2025 7:55am ERAS, Left Total Hip Replacement Robotic Arm [place] February 17, 2025 12:05pm ERAS, Left Total Hip Replacement Robotic Arm [place] February 17, 2025 12:24pm LEFT HIP FRACTURE February 17, 2025 3:15 pm LEFT HIP FRACTURE February 20, 2025 9:56 am LEFT HIP FRACTURE February 21, 2025 10:2 9am LEFT HIP FRACTURE February 23, 2025 9:25 am LEFT HIP FRACTURE February 24, 2025 9:55 am ERAS, Left Total Hip Replacement Robotic Arm [place] February 27, 2025 9:17am LEFT HIP FRACTURE February 27, 2025 9:36 am LEFT HIP FRACTURE February 28, 2025 7:44a m LEFT HIP FRACTURE February 28, 2025 2:01p m DVT March 21, 2025 9:58 am left hip March 27, 2025 9:50 am Room 1 March 27, 2025 10:0 5am wound March 27, 2025 1:55 pm wound March 27, 2025 3:42 pm R LEG ULCER April 13, 2025 10 :40am wound April 13, 2025 12 :28pm Reason for Visit Admit Date Degenerative joint disease of left hip M ay 2024 10:02am Lumbar spondylosis January 13, 2025 10:02 am Trochanteric bursitis, left hip December 10:02am Status post left hip replacement February 142024 1:33pm Acute hypercapnic respiratory failure Ju ne 2024 1:33pm Coffee ground emesis February 14, 2025 1:3 3pm Left lumbar radiculitis February 14, 2025 1:33pm Diabetes February 14, 2025 1:33 pm Acute blood loss as cause of postoperati ve anemia February 17, 2025 3:15pm DVT of lower limb, acute February 17, 2025 3:15pm Erosive esophagitis February 17, 2025 3:15 pm Morbid obesity February 17, 2025 3:15 pm Neutrophilic leukocytosis February 17 3:15pm Physical debility February 17, 2025 3:15 pm Status post left hip replacement February 172024 3:15pm Superficial vein thrombosis February 17, 2 025 3:15pm UTI (urinary tract infection ) due to urinary indwelling Tsang catheter February 17, 2025 3:15pm Sleep-disordered breathing February 17 3:15pm BPH (benign prostatic hyperplasia) February 17, 2025 3:15pm Acute hypercapnic respiratory failure Ju ne 2024 3:15pm Acute renal failure superimp osed on stage 3 chronic kidney disease February 17, 2025 3:15pm Aspiration pneumonia February 17, 2025 3:1 5pm Coffee ground emesis February 17, 2025 3:1 5pm Dehydration February 17, 2025 3:15 pm Orthostatic hypotension February 17, 2025 3:15pm Other acute postprocedural pain January 3:15pm Urine retention February 17, 2025 3:15 pm Chronic renal failure (CRF), stage 3b Ju 2024 3:15pm Diabetes mellitus, type 2 February 17 3:15pm Diverticulosis February 17, 2025 3:15 pm Enlarged prostate February 17, 2025 3:15 pm Hiatal hernia with GERD February 17, 2025 3:15pm Pulmonary embolism February 17, 2025 3:15 pm Renal atrophy, right February 17, 2025 3:1 5pm Tobacco dependence in remission January 3:15pm KATHERINE (obstructive sleep apnea) February 17, 2025 3:15pm Status post left hip replacement March 272024 9:50am Ulcer of right leg March 27, 2025 9:50 am Ulcer of right leg March 27, 2025 1:55 pm Bilateral lower extremity edema March [id number] 12:28pm DVT of lower limb, acute April 13 12:28pm Superficial vein thrombosis April 13, 2025 12:28pm Ulcer of right leg April 13, 2025 12 :28pm Chronic venous insufficiency March 12:28pm Additional Source Comments (unrecognized sect ion and content) No Status Records FoundNo Status Records FoundNo Status Records FoundNo Status Records Found INFORMATION SOURCE (unrecogn ized section and content) DATE CREATED AUTHOR 06/21/2018 [facility] DATE CREATED AUTHOR AUTHOR'S ORGANIZ ATION 04/09/2024 [facility] DATE CREATED AUTHOR AUTHOR'S ORGANIZ ATION 01/28/2025 [facility] DATE CREATED AUTHOR AUTHOR'S ORGANIZ ATION 05/06/2025 [facility] Care Teams (unrecognized sec tion and content) Team Status: Active Member Role Status Dates Dr. Tess Hernandez MD Family Provider Active Dr. Tess Hernandez MD Primary Care Provider Active Team Status: Active Member Role Status Dates Dr. Tess Hernandez MD Primary Care Provider Active Start: January 13, 2025 Dr. Tess Hernandez MD Referring Provider Active Start: January 13, 2025 Dr. Rasheed Galindo DO Attending Provider Active Start: January 13, 2025 Team Status: Inactive Member Role Status Dates Dr. Tess Hernandez MD Primary Care Provider Active Start: January 13, 2025 End: January 13, 2025 Dr. Irineo Ortega MD Attending Provider Active S tart: January 13, 2025 End: January 13, 2025 Team Status: Inactive Member Role Status Dates Dr. Tess Hernandez MD Primary Care Provider Active Start: January 13, 2025 End: January 13, 2025 Dr. Tess Hernandez MD Referring Provider Active Start: January 13, 2025 End: January 13, 2025 Dr. Rasheed Galindo DO Attending Provider Active Start: January 13, 2025 End: January 13, 2025 Team Status: Active Member Role Status Dates Dr. Tess Hernandez MD Primary Care Provider Active Team Status: Inactive Member Role Status Dates Dr. Tess Hernandez MD Primary Care Provider Active Start: February 03, 2025 End: February 03, 2025 Dr. Rasheed Galindo DO Attending Provider Active Start: February 03, 2025 End: February 03, 2025 Dr. Rasheed Galindo DO Referring Provider Active Start: February 03, 2025 End: February 03, 2025 Team Status: Active Member Role Status Dates PRISCILLA Almanzar Primary Care Provider Active Team Status: Inactive Member Role Status Dates Dr. Rasheed Galindo DO Admit Provider Active St art: February 14, 2025 End: February 17, 2025 Dr. Rasheed Galindo DO Attending Provider Active Start: February 14, 2025 End: February 17, 2025 Dr. Rasheed Galindo DO Referring Provider Active Start: February 14, 2025 End: February 17, 2025 Dr. Shraddha Gamez MD Other Provider Active Star t: February 14, 2025 End: February 17, 2025 PRISCILLA Almanzar Primary Care Provider Active Start: February 14, 2025 End: February 17, 2025 Dr. Yomi Dempsey DO Other Provider Active Start: February 14, 2025 End: February 17, 2025 Team Status: Active Member Role Status Dates Dr. Tess Hernandez MD Primary Care Provider Active Start: February 14, 2025 Dr. Rasheed Gailndo DO Admit Provider Active St art: February 14, 2025 Dr. Rasheed Galindo DO Attending Provider Active Start: February 14, 2025 Dr. Rasheed Galindo DO Referring Provider Active Start: February 14, 2025 Dr. Rasheed Galindo DO Other Provider Active St art: February 14, 2025 Team Status: Active Member Role Status Dates Dr. Tess Hernandez MD Primary Care Provider Active Start: February 14, 2025 Dr. Rasheed Galindo DO Admit Provider Active St art: February 14, 2025 Dr. Rasheed Galindo DO Referring Provider Active Start: February 14, 2025 Dr. Rasheed Galindo DO Other Provider Active St art: February 14, 2025 Dr. Yomi Dempsey DO Attending Provider Active Start: February 14, 2025 Dr. Yomi Dempsey DO Other Provider Active Start: February 14, 2025 Team Status: Active Member Role Status Dates Dr. Rasheed Galindo DO Admit Provider Active St art: February 15, 2025 Dr. Rasheed Galindo DO Referring Provider Active Start: February 15, 2025 Dr. Rasheed Galindo DO Other Provider Active St art: February 15, 2025 Dr. Shraddha Gamez MD Attending Provider Active Start: February 15, 2025 Dr. Shraddha Gamez MD Other Provider Active Star t: February 15, 2025 PRISCILLA Almanzar Primary Care Provider Active Start: February 15, 2025 Team Status: Active Member Role Status Dates Dr. Tess Hernandez MD Primary Care Provider Active Start: February 15, 2025 Dr. Rasheed Glaindo DO Admit Provider Active St art: February 15, 2025 Dr. Rasheed Galindo DO Referring Provider Active Start: February 15, 2025 Dr. Rasheed Galindo DO Other Provider Active St art: February 15, 2025 Dr. Shraddha Gamez MD Other Provider Active Star t: February 15, 2025 Dr. Marco A Ramirez , Attending Provider Active Start: February 15, 2025 Team Status: Active Member Role Status Dates Dr. Rasheed Galindo DO Admit Provider Active St art: February 15, 2025 Dr. Rasheed Galindo DO Attending Provider Active Start: February 15, 2025 Dr. Rasheed Galindo DO Referring Provider Active Start: February 15, 2025 Dr. Rasheed Galindo DO Other Provider Active St art: February 15, 2025 Dr. Shraddha Gamez MD Other Provider Active Star t: February 15, 2025 PRISCILLA Almanzar Primary Care Provider Active Start: February 15, 2025 Team Status: Active Member Role Status Dates Dr. Rasheed Galindo DO Admit Provider Active St art: February 16, 2025 Dr. Rasheed Galindo DO Attending Provider Active Start: February 16, 2025 Dr. Rasheed Galindo DO Referring Provider Active Start: February 16, 2025 Dr. Rasheed Galindo DO Other Provider Active St art: February 16, 2025 Dr. Shraddha Gamez MD Other Provider Active Star t: February 16, 2025 PRISCILLA Almanzar Primary Care Provider Active Start: February 16, 2025 Dr. Yomi Dempsey DO Other Provider Active Start: February 16, 2025 Team Status: Active Member Role Status Dates Dr. Rasheed Galindo DO Admit Provider Active St art: February 16, 2025 Dr. Rasheed Galindo DO Referring Provider Active Start: February 16, 2025 Dr. Rasheed Galindo DO Other Provider Active St art: February 16, 2025 Dr. Shraddha Gamez MD Attending Provider Active Start: February 16, 2025 Dr. Shraddha Gamez MD Other Provider Active Star t: February 16, 2025 PRISCILLA Almanzar Primary Care Provider Active Start: February 16, 2025 Dr. Yomi Dempsey DO Other Provider Active Start: February 16, 2025 Team Status: Active Member Role Status Dates Dr. Rasheed Galindo DO Admit Provider Active St art: February 17, 2025 Dr. Rasheed Galindo DO Referring Provider Active Start: February 17, 2025 Dr. Rasheed Galindo DO Other Provider Active St art: February 17, 2025 Dr. Shraddha Gamez MD Attending Provider Active Start: February 17, 2025 Dr. Shraddha Gamez MD Other Provider Active Star t: February 17, 2025 PRISCILLA Almanzar Primary Care Provider Active Start: February 17, 2025 Dr. Yomi Dempsey DO Other Provider Active Start: February 17, 2025 Team Status: Active Member Role Status Dates Dr. Rasheed Galindo DO Admit Provider Active St art: February 17, 2025 Dr. Rasheed Galindo DO Attending Provider Active Start: February 17, 2025 Dr. Rasheed Galindo DO Referring Provider Active Start: February 17, 2025 Dr. Rasheed Galindo DO Other Provider Active St art: February 17, 2025 Dr. Shraddha Gamez MD Other Provider Active Star t: February 17, 2025 PRISCILLA Almanzar Primary Care Provider Active Start: February 17, 2025 Dr. Yomi Dempsey DO Other Provider Active Start: February 17, 2025 Team Status: Active Member Role/Relationship Status Dates PRISCILLA Almanzar Primary Care Provider Active Team Status: Inactive Member Role/Relationship Status Dates Dr. Tess Hernandez MD Primary Care Provider Active Start: January 13, 2025 End: January 13, 2025 Dr. Tess Hernandez MD Referring Provider Active Start: January 13, 2025 End: January 13, 2025 Dr. Rasheed Galindo DO Attending Provider Active Start: January 13, 2025 End: January 13, 2025 Team Status: Inactive Member Role/Relationship Status Dates Dr. Tess Hernandez MD Primary Care Provider Active Start: January 13, 2025 End: January 13, 2025 Dr. Irineo Ortega MD Attending Provider Active S tart: January 13, 2025 End: January 13, 2025 Team Status: Inactive Member Role/Relationship Status Dates Dr. Tess Hernandez MD Primary Care Provider Active Start: February 03, 2025 End: February 03, 2025 Dr. Rasheed Galindo DO Attending Provider Active Start: February 03, 2025 End: February 03, 2025 Dr. Rasheed Galindo DO Referring Provider Active Start: February 03, 2025 End: February 03, 2025 Team Status: Inactive Member Role/Relationship Status Dates Dr. Rasheed Galindo DO Admit Provider Active St art: February 14, 2025 End: February 17, 2025 Dr. Rasheed Galindo DO Attending Provider Active Start: February 14, 2025 End: February 17, 2025 Dr. Rasheed Galindo DO Referring Provider Active Start: February 14, 2025 End: February 17, 2025 Dr. Shraddha Gamez MD Other Provider Active Star t: February 14, 2025 End: February 17, 2025 PRISCILLA Almanzar Primary Care Provider Active Start: February 14, 2025 End: February 17, 2025 Dr. Yomi Dempsey DO Other Provider Active Start: February 14, 2025 End: February 17, 2025 Team Status: Active Member Role/Relationship Status Dates Dr. Tess Hernandez MD Primary Care Provider Active Start: February 14, 2025 Dr. Rasheed Galindo DO Admit Provider Active St art: February 14, 2025 Dr. Rasheed Galindo DO Attending Provider Active Start: February 14, 2025 Dr. Rasheed Galindo DO Referring Provider Active Start: February 14, 2025 Dr. Rasheed Galindo DO Other Provider Active St art: February 14, 2025 Team Status: Active Member Role/Relationship Status Dates Dr. Tess Hernandez MD Primary Care Provider Active Start: February 14, 2025 Dr. Rasheed Galindo DO Admit Provider Active St art: February 14, 2025 Dr. Rasheed Galindo DO Referring Provider Active Start: February 14, 2025 Dr. Rasheed Galindo DO Other Provider Active St art: February 14, 2025 Dr. Yomi Dempsey DO Attending Provider Active Start: February 14, 2025 Dr. Yomi Dempsey DO Other Provider Active Start: February 14, 2025 Team Status: Active Member Role/Relationship Status Dates Dr. Rasheed Galindo DO Admit Provider Active St art: February 15, 2025 Dr. Rasheed Galindo DO Referring Provider Active Start: February 15, 2025 Dr. Rasheed Galindo DO Other Provider Active St art: February 15, 2025 Dr. Shraddha Gamez MD Attending Provider Active Start: February 15, 2025 Dr. Shraddha Gamez MD Other Provider Active Star t: February 15, 2025 PRISCILLA Almanzar Primary Care Provider Active Start: February 15, 2025 Team Status: Active Member Role/Relationship Status Dates Dr. Tess Hernandez MD Primary Care Provider Active Start: February 15, 2025 Dr. Rasheed Galindo DO Admit Provider Active St art: February 15, 2025 Dr. Rasheed Galindo DO Referring Provider Active Start: February 15, 2025 Dr. Rasheed Galindo DO Other Provider Active St art: February 15, 2025 Dr. Shraddha Gamez MD Other Provider Active Star t: February 15, 2025 Dr. Marco A Ramirez DO Attending Provider Active Start: February 15, 2025 Team Status: Active Member Role/Relationship Status Dates Dr. Rasheed Galindo DO Admit Provider Active St art: February 15, 2025 Dr. Rasheed Galindo DO Attending Provider Active Start: February 15, 2025 Dr. Rasheed Galindo DO Referring Provider Active Start: February 15, 2025 Dr. Rasheed Galindo DO Other Provider Active St art: February 15, 2025 Dr. Shraddha Gamez MD Other Provider Active Star t: February 15, 2025 PRISCILLA Almanzar Primary Care Provider Active Start: February 15, 2025 Team Status: Active Member Role/Relationship Status Dates Dr. Rasheed Galindo DO Admit Provider Active St art: February 16, 2025 Dr. Rasheed Galindo DO Attending Provider Active Start: February 16, 2025 Dr. Rasheed Galindo DO Referring Provider Active Start: February 16, 2025 Dr. Rasheed Galindo DO Other Provider Active St art: February 16, 2025 Dr. Shraddha Gamez MD Other Provider Active Star t: February 16, 2025 PRISCILLA Almanzar Primary Care Provider Active Start: February 16, 2025 Dr. Yomi Dempsey DO Other Provider Active Start: February 16, 2025 Team Status: Active Member Role/Relationship Status Dates Dr. Rasheed Galindo DO Admit Provider Active St art: February 16, 2025 Dr. Rasheed Galindo DO Referring Provider Active Start: February 16, 2025 Dr. Rasheed Galindo DO Other Provider Active St art: February 16, 2025 Dr. Shraddha Gamez MD Attending Provider Active Start: February 16, 2025 Dr. Shraddha Gamez MD Other Provider Active Star t: February 16, 2025 PRISCILLA Almanzar Primary Care Provider Active Start: February 16, 2025 Dr. Yomi Dempsey DO Other Provider Active Start: February 16, 2025 Team Status: Active Member Role/Relationship Status Dates Dr. Rasheed Galindo DO Admit Provider Active St art: February 17, 2025 Dr. Rasheed Galindo DO Referring Provider Active Start: February 17, 2025 Dr. Rasheed Galindo , DO Other Provider Active St art: February 17, 2025 Dr. Shraddha Gamez MD Attending Provider Active Start: February 17, 2025 Dr. Shraddha Gamez MD Other Provider Active Star t: February 17, 2025 PRISCILLA Almanzar Primary Care Provider Active Start: February 17, 2025 Dr. Yomi Dempsey , Other Provider Active Start: February 17, 2025 Team Status: Active Member Role/Relationship Status Dates Dr. Rasheed Galindo DO Admit Provider Active St art: February 17, 2025 Dr. Rasheed Galindo DO Attending Provider Active Start: February 17, 2025 Dr. Rasheed Galindo DO Referring Provider Active Start: February 17, 2025 Dr. Rasheed Galindo DO Other Provider Active St art: February 17, 2025 Dr. Shraddha Gamez MD Other Provider Active Star t: February 17, 2025 PRISCILLA Almanzar Primary Care Provider Active Start: February 17, 2025 Dr. Yomi Dempsey , DO Other Provider Active Start: February 17, 2025 Team Status: Inactive Member Role/Relationship Status Dates PRISCILLA Almanzar Primary Care Provider Active Start: February 17, 2025 End: February 28, 2025 Dr. Asia Dodd DO Admit Provider Active Start: February 17, 2025 End: February 28, 2025 Dr. Asia Dodd DO Attending Provider Act richi Start: February 17, 2025 End: February 28, 2025 Dr. Asia Dodd DO Referring Provider Act richi Start: February 17, 2025 End: February 28, 2025 Team Status: Active Member Role/Relationship Status Dates PRISCILLA Almanzar Primary Care Provider Active Start: February 20, 2025 Dr. Asia Dodd DO Admit Provider Active Start: February 20, 2025 Dr. Asia Dodd DO Attending Provider Act richi Start: February 20, 2025 Dr. Asia Dodd DO Referring Provider Act richi Start: February 20, 2025 Dr. Asia Dodd DO Other Provider Active Start: February 20, 2025 Team Status: Active Member Role/Relationship Status Dates PRISCILLA Almanzar Primary Care Provider Active Start: February 21, 2025 Dr. Asia Dodd , DO Admit Provider Active Start: February 21, 2025 Dr. Asia Dodd , DO Attending Provider Act richi Start: February 21, 2025 Dr. Asia Dodd DO Referring Provider Act richi Start: February 21, 2025 Dr. Asia Dodd , DO Other Provider Active Start: February 21, 2025 Team Status: Active Member Role/Relationship Status Dates PRISCILLA Almanzar Primary Care Provider Active Start: February 23, 2025 Dr. Asia Dodd , DO Admit Provider Active Start: February 23, 2025 Dr. Asia Dodd , DO Attending Provider Act richi Start: February 23, 2025 Dr. Asia Dodd DO Referring Provider Act richi Start: February 23, 2025 Dr. Asia Dodd , DO Other Provider Active Start: February 23, 2025 Team Status: Active Member Role/Relationship Status Dates PRISCILLA Almanzar Primary Care Provider Active Start: February 24, 2025 Dr. Asia Dodd , DO Admit Provider Active Start: February 24, 2025 Dr. Asia Dodd , DO Attending Provider Act richi Start: February 24, 2025 Dr. Asia Dodd DO Referring Provider Act richi Start: February 24, 2025 Dr. Asia Dodd , DO Other Provider Active Start: February 24, 2025 Team Status: Active Member Role/Relationship Status Dates Dr. Rasheed Galindo DO Admit Provider Active St art: February 27, 2025 Dr. Rasheed Galindo , DO Attending Provider Active Start: February 27, 2025 Dr. Rasheed Galindo , DO Referring Provider Active Start: February 27, 2025 Dr. Rasheed Galindo , DO Other Provider Active St art: February 27, 2025 Dr. Shraddha Gamez MD Other Provider Active Star t: February 27, 2025 PRISCILLA Almanzar Primary Care Provider Active Start: February 27, 2025 Dr. Yomi Dempsey , Other Provider Active Start: February 27, 2025 Team Status: Active Member Role/Relationship Status Dates PRISCILLA Almanzar Primary Care Provider Active Start: February 27, 2025 Dr. Asia Dodd DO Admit Provider Active Start: February 27, 2025 Dr. Asia Dodd , Attending Provider Act richi Start: February 27, 2025 Dr. Asia Dodd DO Referring Provider Act richi Start: February 27, 2025 Dr. Asia Dodd DO Other Provider Active Start: February 27, 2025 Team Status: Active Member Role/Relationship Status Dates PRISCILLA Almanzar Primary Care Provider Active Start: February 27, 2025 Dr. Ty Hammond MD Attending Provider Active S tart: February 27, 2025 Team Status: Active Member Role/Relationship Status Dates PRISCILLA Almanzar Primary Care Provider Active Start: February 28, 2025 Dr. Asia Dodd DO Admit Provider Active Start: February 28, 2025 Dr. Asia Dodd DO Referring Provider Act irchi Start: February 28, 2025 Dr. Asia Dodd , Other Provider Active Start: February 28, 2025 Dr. Rasheed Galindo , Attending Provider Active Start: February 28, 2025 Team Status: Active Member Role/Relationship Status Dates PRISCILLA Almanzar Primary Care Provider Active Start: February 28, 2025 Dr. Asia Dodd DO Admit Provider Active Start: February 28, 2025 Dr. Asia Dodd DO Attending Provider Act richi Start: February 28, 2025 Dr. Asia Dodd DO Referring Provider Act richi Start: February 28, 2025 Dr. Asia Dodd DO Other Provider Active Start: February 28, 2025 Team Status: Active Member Role/Relationship Status Dates Dr. Rasheed Galindo DO Admit Provider Active St art: February 15, 2025 Dr. Rasheed Galindo DO Other Provider Active St art: February 15, 2025 Dr. Shraddha Gamez MD Attending Provider Active Start: February 15, 2025 Dr. Shraddha Gamez MD Other Provider Active Star t: February 15, 2025 PRISCILLA Almanzar Primary Care Provider Active Start: February 15, 2025 Team Status: Active Member Role/Relationship Status Dates Dr. Rasheed Galindo , DO Admit Provider Active St art: February 16, 2025 Dr. Rasheed Galindo , DO Other Provider Active St art: February 16, 2025 Dr. Shraddha Gamez MD Attending Provider Active Start: February 16, 2025 Dr. Shraddha Gamez MD Other Provider Active Star t: February 16, 2025 PRISCILLA Almanzar Primary Care Provider Active Start: February 16, 2025 Dr. Yomi Dempsey , DO Other Provider Active Start: February 16, 2025 Team Status: Active Member Role/Relationship Status Dates Dr. Rasheed Galindo DO Admit Provider Active St art: February 17, 2025 Dr. Rasheed Galindo , DO Other Provider Active St art: February 17, 2025 Dr. Shraddha Gamez MD Attending Provider Active Start: February 17, 2025 Dr. Shraddha Gamez MD Other Provider Active Star t: February 17, 2025 PRISCILLA Almanzar Primary Care Provider Active Start: February 17, 2025 Dr. Yomi Dempsey , DO Other Provider Active Start: February 17, 2025 Team Status: Active Member Role/Relationship Status Dates PRISCILLA Almanzar Primary Care Provider Active Start: February 20, 2025 Dr. Asia Dodd DO Admit Provider Active Start: February 20, 2025 Dr. Asia Dodd DO Attending Provider Act richi Start: February 20, 2025 Dr. Asia Dodd DO Other Provider Active Start: February 20, 2025 Team Status: Active Member Role/Relationship Status Dates PRISCILLA Almanzar Primary Care Provider Active Start: February 21, 2025 Dr. Asia Dodd DO Admit Provider Active Start: February 21, 2025 Dr. Asia Dodd , DO Attending Provider Act richi Start: February 21, 2025 Dr. Asia Dodd DO Other Provider Active Start: February 21, 2025 Team Status: Active Member Role/Relationship Status Dates PRISCILLA Almanzar Primary Care Provider Active Start: February 23, 2025 Dr. Asia Dodd DO Admit Provider Active Start: February 23, 2025 Dr. Asia Dodd , DO Attending Provider Act richi Start: February 23, 2025 Dr. Asia Dodd , DO Other Provider Active Start: February 23, 2025 Team Status: Active Member Role/Relationship Status Dates PRISCILLA Almanzar Primary Care Provider Active Start: February 24, 2025 Dr. Asia Dodd , DO Admit Provider Active Start: February 24, 2025 Dr. Asia Dodd , DO Attending Provider Act richi Start: February 24, 2025 Dr. Asia Dodd , DO Other Provider Active Start: February 24, 2025 Team Status: Active Member Role/Relationship Status Dates PRISCILLA Almanzar Primary Care Provider Active Start: February 27, 2025 Dr. Asia Dodd , Admit Provider Active Start: February 27, 2025 Dr. Asia Dodd , DO Attending Provider Act richi Start: February 27, 2025 Dr. Asia Dodd , Other Provider Active Start: February 27, 2025 Team Status: Active Member Role/Relationship Status Dates PRISCILLA Almanzar Primary Care Provider Active Start: February 27, 2025 Dr. Ty Hammond MD Attending Provider Active S tart: February 27, 2025 Dr. Asia Dodd , DO Referring Provider Act richi Start: February 27, 2025 Team Status: Active Member Role/Relationship Status Dates PRISCILLA Almanzar Primary Care Provider Active Start: February 28, 2025 Dr. Asia Dodd , Admit Provider Active Start: February 28, 2025 Dr. Asia Dodd , DO Attending Provider Act richi Start: February 28, 2025 Dr. Asia Dodd , DO Other Provider Active Start: February 28, 2025 Team Status: Inactive Member Role/Relationship Status Dates PRISCILLA Almanzar Primary Care Provider Active Start: March 21, 2025 End: March 21, 2025 Dr. Asia Dodd , DO Attending Provider Act richi Start: March 21, 2025 End: March 21, 2025 Dr. Asia Dodd , DO Referring Provider Act richi Start: March 21, 2025 End: March 21, 2025 Team Status: Active Member Role/Relationship Status Dates PRISCILLA Almanzar Primary Care Provider Active Start: March 21, 2025 Dr. Ty Hammond MD Attending Provider Active S tart: March 21, 2025 Team Status: Active Member Role/Relationship Status Dates Dr. Tess Hernandez MD Referring Provider Active Start: March 27, 2025 Dr. Rasheed Galindo DO Attending Provider Active Start: March 27, 2025 PRISCILLA Almanzar Primary Care Provider Active Start: March 27, 2025 Team Status: Inactive Member Role/Relationship Status Dates PRISCILLA Almanzar Primary Care Provider Active Start: March 27, 2025 End: March 27, 2025 Dr. Irineo Ortega MD Attending Provider Active S tart: March 27, 2025 End: March 27, 2025 Team Status: Inactive Member Role/Relationship Status Dates Dr. Tess Hernandez MD Referring Provider Active Start: March 27, 2025 End: March 27, 2025 Dr. Rasheed Galindo DO Attending Provider Active Start: March 27, 2025 End: March 27, 2025 PRISCILLA Almanzar Primary Care Provider Active Start: March 27, 2025 End: March 27, 2025 Team Status: Inactive Member Role/Relationship Status Dates PRISCILLA Almanzar Primary Care Provider Active Start: March 27, 2025 End: March 30, 2025 Dr. Rasheed Galindo DO Referring Provider Active Start: March 27, 2025 End: March 30, 2025 PRISCILLA Granda Attending Provider Active Star t: March 27, 2025 End: March 30, 2025 Team Status: Active Member Role/Relationship Status Dates PRISCILLA Almanzar Primary Care Provider Active Start: March 27, 2025 Dr. Jasper Reece MD Attending Provider Active Start: March 27, 2025 Dr. Jasper eRece MD Other Provider Active Star t: March 27, 2025 Dr. Rasheed Galindo DO Referring Provider Active Start: March 27, 2025 Team Status: Active Member Role/Relationship Status Dates PRISCILLA Almanzar Primary Care Provider Active Start: March 21, 2025 Dr. Ty Hammond MD Attending Provider Active S tart: March 21, 2025 Dr. Asia Dodd DO Referring Provider Act richi Start: March 21, 2025 Team Status: Inactive Member Role/Relationship Status Dates PRISCILLA Almanzar Primary Care Provider Active Start: April 13, 2025 End: April 13, 2025 Dr. Jasper Reece MD Attending Provider Active Start: April 13, 2025 End: April 13, 2025 Dr. Jasper Reece MD Referring Provider Active Start: April 13, 2025 End: April 13, 2025 Team Status: Active Member Role/Relationship Status Dates PRISCILLA Almanzar Primary Care Provider Active Start: April 13, 2025 Dr. Ty Hammond MD Attending Provider Active S tart: April 13, 2025 Team Status: Active Member Role/Relationship Status Dates PRISCILLA Almanzar Primary Care Provider Active Start: April 13, 2025 Dr. Rasheed Galindo DO Referring Provider Active Start: April 13, 2025 PRISCILLA Granda Attending Provider Active Star t: April 13, 2025 Team Status: Inactive Member Role/Relationship Status Dates PRISCILLA Almanzar Primary Care Provider Active Start: April 13, 2025 End: April 30, 2025 Dr. Rasheed Galindo DO Referring Provider Active Start: April 13, 2025 End: April 30, 2025 PRISCILLA Granda Attending Provider Active Star t: April 13, 2025 End: April 30, 2025 Goals (unrecognized section and content) Goals may be documented in a n alternate sectionGoals may be documented in an alternate sectionGoals may be documented in an alternate section FOR RECORDS PERTAINING TO PATIENTS WHO ARE OR HAVE BEEN ENROLLED IN A CHEMICAL DEPENDENCY/SUBSTANCEABUSE PROGRAM, SOME INFORMATION MAY BE OMITTED. This clinical summary was aggregated from multiple sources. Caution should be exercised in using it in the provision of clinical care. This summary normalizes information from multiple sources, and as a consequence, information in this document may materially change the coding, format and clinical context of patient data. In addition, data may be omitted in some cases. CLINICAL DECISIONS SHOULD BE BASED ON THE PRIMARY CLINICAL RECORDS. [facility] [employer] [facility]. provides no warranty or guarantee of the accuracy or completeness of information in this document.
== END | disposition home or self-care (01) ==
LOC: CVS 09:56
PROVIDERS: PCP Physician Assistant; Referring Provider Orthopaedic Surgery; Visit Provider Orthopaedic Surgery
DX: M79.604 Pain in right leg (principal); M79.605 Pain in left leg; I70.92 Chronic total occlusion of artery of the extremities
CPT/HCPCS: 93970